=== PATIENT | male | born 1960 | race Caucasian/White ===

== ENCOUNTER → 2020-03-10 15:08 | Outpatient (BNVA) | payer OTHER, SELFPAY | PROVIDERS: PCP Internal Medicine; Visit Provider Internal Medicine | DX: Z76.89 Persons encountering health services in other specified circumstances (principal) ==

== ENCOUNTER 2020-03-10 17:15 | Emergency (ER) | payer OTHER, SELFPAY ==
[2020-03-10 17:28] VITALS: BP 124/73; PULSE 76; RESP 20; TEMP 37.5; O2SAT 97; BMI 22.3
[2020-03-10 18:00] VITALS: BP 138/55; PULSE 68; RESP 16; TEMP 37.1; O2SAT 95
--- NOTE | 2020-03-10 18:11 | XR_ITS ---
EXAMINATION: XR CHEST CLINICAL INFORMATION: Cough, shortness of breath. COMPARISON: CT chest 12/27/2018. Chest x-ray 12/24/2018 TECHNIQUE: Frontal portable view of the chest was obtained. 6:08 PM FINDINGS: Lungs are clear. No pulmonary vascular congestion. There is no pleural effusion. The heart size is normal. The cardiac and mediastinal contours are normal. There are multilevel degenerative changes of dorsal spine. XR/XR chest 1V IMPRESSION: Unremarkable examination.
--- NOTE | 2020-03-10 18:13 | ED.URI ---
HPI - URI/Sore Throat General Chief Complaint: Upper Respiratory Symptoms Stated Complaint: SOB/Covid Symptoms Time Seen by Provider: 03/10/20 18:08 Source: patient Mode of arrival: ambulatory Limitations: no limitations History of Present Illness HPI Narrative: 59-year-old male with past medical history of ankylosing spondylosis on immunosuppressant therapy, chronic bronchitis, GERD, hyperlipidemia, history of pneumonia, pulmonary nodules presents with 1 week of upper respiratory symptoms consistent with COVID-19. He has been tested on Sunday however his test results have not come back yet. He does have significant concerns because he has had suspected COVID positive contacts and is on immunosuppressive therapy. Patient reports intermittent fevers and chills, cough, wheezing, and malaise. Denies chest pain or pressure, palpitations, abdominal pain, abdominal distention, dysuria, hematuria, and edema. MD elicited complaint: fever, cough, rhinorrhea and nasal congestion Pertinent past history: pneumonia and immunosuppression Onset (ago): week(s) (1) Consistency: constant Severity: moderate Description of mucous: clear and watery Able to tolerate fluids by mouth: Yes Exacerbating factors: exertion, speaking and deep breaths Relieving factors: nothing Context: sick contacts Associated symptoms: fever, chills, myalgias, nasal congestion, cough and shortness of breath Treatments prior to arrival: acetaminophen and ibuprofen Related Data Home Medications Medication Instructions Recorded Confirmed albuterol sulfate 90 mcg/actuation 2 puff INHALATION Q6H PRN 03/10/20 aerosol inhaler aspirin 81 mg tablet,delayed 81 mg PO DAILY 03/10/20 release carbamazepine 3 tab PO BID 03/10/20 03/10/20 carbamazepine 200 mg tablet 200 mg PO BID 03/10/20 cetirizine 1 tab PO DAILY 03/10/20 03/10/20 cetirizine 10 mg tablet 10 mg PO DAILY PRN 03/10/20 fluticasone propionate 2 spray INTRANASAL DAILY PRN 03/10/20 03/10/20 fluticasone propionate 50 1 spray INTRANASAL DAILY 03/10/20 mcg/actuation nasal spray,suspension omeprazole 1 cap PO DAILY 03/10/20 03/10/20 omeprazole 20 mg capsule,delayed 20 mg PO DAILY 03/10/20 release simvastatin 1 tab PO BEDTIME 03/10/20 03/10/20 simvastatin 20 mg tablet 20 mg PO BEDTIME 03/10/20 Previous Rx's Medication Instructions Recorded azithromycin [Zithromax TRI-LENNOX] See Rx Instructions .ROUTE 03/10/20 .COMPLEX #6 tab cefuroxime axetil 500 mg PO Q12H 7 Days #14 tab 03/10/20 Allergies Allergy/AdvReac Type Severity Reaction Status Date / Time acetaminophen [From PERCOCET] Allergy Unknown VOMITING Verified 03/10/20 15:13 codeine [CODEINE] Allergy Unknown VOMITING Verified 03/10/20 15:13 oxycodone [From PERCOCET] Allergy Unknown VOMITING Verified 03/10/20 15:13 Review of Systems Review of Systems: Constitutional: positive Fever, positive Chills, positive fatigue, positive Malaise ENT/Mouth: positive sore throat, positive runny nose Eyes: No Discharge Cardiovascular: No Chest Pain, No SOB Respiratory: Positive Cough, No Sputum, positive Wheezing, No Smoke Exposure, No Dyspnea Gastrointestinal: No Nausea, No Vomiting, No Diarrhea Genitourinary: no irregular bleeding, No Dysuria, No Urinary Frequency, No Hematuria, No Urinary Incontinence, No Urgency, No Flank Pain, Musculoskeletal: positive Myalgia Skin: No rash Neuro: No Headache Yes all other systems are reviewed and are negative PMFSH Past Medical History Attestation statement: The following information was validated with the patient. Source: old records reviewed Medical History Bronchitis GERD (gastroesophageal reflux disease) Hyperlipidemia Pneumonia Pulmonary nodules Social History Social History Smoking Status: Never smoker Advance Directives: No Advance Directives Information Provided: No Physical Exam Vital Signs: Vital Signs: Last Vital Signs Temp 98.8 F 03/10/20 18:00 Pulse 68 03/10/20 18:00 Resp 16 03/10/20 18:00 BP 138/55 L 03/10/20 18:00 Pulse Ox 95 03/10/20 18:00 Body Mass Index 22.3 Appearance: Alert. Oriented X3. Mild distress. Eyes: Pupils equal, round and reactive to light. ENT: Pharynx normal. Neck: Normal inspection. Neck supple. CVS: Normal heart rate and rhythm. Pulses normal. Respiratory: No respiratory distress. Lung sounds expiratory wheezing and coarse throughout, cough Abdomen: Soft and nontender. Skin: Skin warm and dry. Normal skin color. Normal skin turgor. Extremities: No lower extremity edema. Neuro: No motor deficit. No sensory deficit. Course Course Course Narrative: 59-year-old male with upper respiratory symptoms consistent with COVID-19 on immunosuppressive therapy. Plan of care is for x-ray, COVID testing. Chest x-ray is negative, COVID test is negative, however with patient's symptoms, lung sounds and immunosuppression will start azithromycin and cefuroxime. He does understand that he should maintain social isolation guidelines as if he were positive for COVID-19. Patient verbalized understanding of and agrees to plan of care discharge home. MDM - URI/Sore Throat Differential Diagnosis Differential diagnosis: Likely upper respiratory infection, sinusitis, viral infection, bronchitis and influenza Medical Records Attestation: I reviewed the patient's medical records. Lab Data Attestation: I reviewed the patient's lab results. Labs: Lab Results 03/10/20 Range/Units 18:34 COVID-19 (CB) Negative (Negative) COVID-19 Clin Com See Note Imaging Data Chest x-ray: Attestation: I personally reviewed and interpreted this imaging study as follows: Radiologist's impression: EXAMINATION: XR CHEST CLINICAL INFORMATION: Cough, shortness of breath. COMPARISON: CT chest 12/27/2018. Chest x-ray 12/24/2018 TECHNIQUE: Frontal portable view of the chest was obtained. 6:08 PM FINDINGS: Lungs are clear. No pulmonary vascular congestion. There is no pleural effusion. The heart size is normal. The cardiac and mediastinal contours are normal. There are multilevel degenerative changes of dorsal spine. XR/XR chest 1V IMPRESSION: Unremarkable examination. Discharge Plan Discharge Clinical Impression: Upper respiratory infection, COVID-19 Patient Disposition: Home, Self-Care Instructions: Upper Respiratory Infection (ED), COVID-19 (Coronavirus Disease 2019) (ED) Additional Instructions: You were evaluated for symptoms consistent with COVID-19. Your COVID-19 test was negative however your presentation is consistent with a positive COVID-19. We have prescribed 2 antibiotics azithromycin and cefuroxime because you are on immunosuppressant medications. These medications are prescribed to prevent a viral infection from progressing to a bacterial infection. Please follow-up the primary care provider in the next 2-3 days. Please socially isolate for State and Federal guidelines. Is your responsibility to maintain isolation guidelines. Thank you for choosing this emergency department for evaluation. Please follow-up with primary care physician as needed. Return to the emergency department for any new, concerning, or worsening symptoms. Prescriptions: New azithromycin [Zithromax TRI-LENNOX] 500 mg tablet See Rx Instructions .ROUTE .COMPLEX Qty: 6 RF: 0 cefuroxime axetil 500 mg tablet 500 mg PO Q12H 7 Days Qty: 14 RF: 0 No Action cetirizine 10 mg tablet 1 tab PO DAILY RF: 0 carbamazepine 200 mg tablet 3 tab PO BID RF: 0 simvastatin 20 mg tablet 1 tab PO BEDTIME RF: 0 omeprazole 20 mg capsule,delayed release(DR/EC) 1 cap PO DAILY RF: 0 fluticasone propionate 50 mcg/actuation spray,suspension 2 spray intranasal DAILY PRN (Reason: Allergic Symptoms) RF: 0 cetirizine 10 mg tablet 10 mg PO DAILY PRN (Reason: Runny Nose) RF: 0 carbamazepine 200 mg tablet 200 mg PO BID RF: 0 omeprazole 20 mg capsule,delayed release(DR/EC) 20 mg PO DAILY RF: 0 fluticasone propionate [Flonase Allergy Relief] 50 mcg/actuation spray,suspension 1 spray intranasal DAILY RF: 0 simvastatin 20 mg tablet 20 mg PO BEDTIME RF: 0 aspirin 81 mg tablet,delayed release (DR/EC) 81 mg PO DAILY RF: 0 albuterol sulfate 90 mcg/actuation HFA aerosol inhaler 2 puff inhalation Q6H PRN (Reason: Shortness Of Breath) RF: 0 Referrals: Kevin Rogers MD [Physician] - 2 days (Follow-up for URI consistent with COVID-19) Interventions: ED Discharge Assessment Last Done: 03/10/20 19:37 Discharge Date/Time: 03/10/20 19:38
[2020-03-10 19:02] LABS: COVID-19 Test Negative (Negative)
[2020-03-10] MEDS: Azithromycin 500 MG TABLET PO (19:19)
== END 2020-03-10 19:38 | disposition home or self-care (01) ==
PROVIDERS: Nurse Practitioner Family; Emergency Provider Emergency Medicine; PCP Internal Medicine
DX: U07.1 COVID-19 (principal); J06.9 Acute upper respiratory infection, unspecified; R05 Cough; Z79.899 Other long term (current) drug therapy
CPT/HCPCS: 36415; 71045; 87635; 99283

== ENCOUNTER → 2020-03-18 11:05 | Outpatient (BNVA) | payer OTHER, SELFPAY | PROVIDERS: PCP Internal Medicine; Visit Provider Internal Medicine Pulmonary Disease ==

== ENCOUNTER → 2020-03-26 12:44 | Outpatient (BNVA) | payer OTHER, SELFPAY | PROVIDERS: PCP Internal Medicine; Visit Provider Internal Medicine Pulmonary Disease ==

== ENCOUNTER → 2020-04-27 10:45 | Outpatient (BNVA) | payer OTHER, SELFPAY | PROVIDERS: PCP Internal Medicine; Visit Provider Internal Medicine Pulmonary Disease ==

== ENCOUNTER → 2020-07-22 09:19 | Outpatient (BNVA) | payer OTHER, SELFPAY | PROVIDERS: PCP Internal Medicine; Visit Provider Internal Medicine Pulmonary Disease ==

== ENCOUNTER 2020-07-29 05:12 | Inpatient (IN) | payer OTHER, SELFPAY ==
[2020-07-29] VITALS (15 sets, daily range): BP systolic 124–157; BP diastolic 58–69; PULSE 62–97; RESP 16–24; TEMP 36.5–36.8; O2SAT 94–100; BMI 22.4
--- NOTE | ~2020-07-29 | XR_ITS ---
EXAMINATION: XR CHEST CLINICAL INFORMATION: Shortness of breath COMPARISON: 08/31/2020 TECHNIQUE: Frontal view of the chest was obtained. FINDINGS: Normal symmetric lung volumes. No parenchymal consolidation. No pleural effusion. No pneumothorax. Cardiomediastinal silhouette and pulmonary vascularity are within normal limits. No acute osseous abnormalities. XR/XR chest 1V IMPRESSION: Unremarkable examination.
--- NOTE | ~2020-07-29 | CT_ITS ---
EXAMINATION: CT CHEST WITH CONTRAST CLINICAL INFORMATION: Shortness of breath. Organizing pneumonia. COMPARISON: CT chest 12/27/2018 TECHNIQUE: Multidetector volumetric CT imaging of the chest was obtained after the administration of 65 mL of Omnipaque 350 intravenous contrast without immediate adverse reactions. Axial MIP volume rendering provided. Sagittal and coronal reformatted images were obtained. This CT examination was performed using dose optimization techniques as appropriate, variously including the following: *Automated exposure control *Adjustment of mA and/or kV according to patient size (this includes techniques or standardized protocols for targeted exams where dose is matched to indication/reason for exam; i.e. extremities or head) *Use of iterative reconstruction technique DLP: 285 mGy-cm FINDINGS: LUNGS: There is no acute airways disease. No bronchiectasis or interstitial lung disease. The central bronchial airways are open. Lung nodules: Right lun. Right upper lobe 1 mm nodule axial image 210/645 series 5. Left lun. There is a 1 mm stable nodule left upper lobe axial image 135/645 series 5. 2. 5 mm calcified granuloma left lower lobe axial image 277/645 series 5.. 3. 2 mm calcified granuloma medial left lower lobe axial image 442/645 series 5. There are no new or suspicious lung nodules.. MEDIASTINUM: No mediastinal mass or significant lymphadenopathy. 9 mm lymph node in the pretracheal retrovascular space at the level the melody is stable. The heart size is normal. No pericardial effusion. Small volume of coronary artery calcifications. There is no aneurysm of aorta. Thyroid is unremarkable. PLEURA: No pleural thickening or pleural effusion. AXILLA: No lymphadenopathy. UPPER ABDOMEN: 1 mm nonobstructive stone upper pole of right kidney. There is an extrarenal pelvis of left kidney. No focal lesion in the visualized portions of liver, spleen, pancreas or the adrenal glands. OSSEOUS STRUCTURES: No suspicious osseous abnormality. There is degenerative spondylosis spine. CT/CT chest w con IMPRESSION: 1. No acute airways disease. 2. Stablescattered micronodules which are both calcified and noncalcified in lung since prior CAT scan 2018. Largest noncalcified nodules 1 mm. No further follow-up imaging recommended for the lung nodules.
--- NOTE | 2020-07-29 05:30 | ED_ITS ---
HPI - SOB/Dyspnea General Chief Complaint: Upper Respiratory Symptoms Stated Complaint: Sob Time Seen by Provider: 07/29/20 05:29 Source: patient Mode of arrival: ambulatory History of Present Illness HPI Narrative: This is a 59-year-old male with known ankylosing spondylitis and denies any history of COPD or asthma who has recently been on a steroid taper from 40 mg down to 30, this transition was made from Sunday into Sunday and since Sunday patient reports decreased effectiveness of albuterol and increasing shortness of breath throughout that time. He denies any associated chest pain/palpitations, fevers or chills. Related Data Home Medications Medication Instructions Recorded Confirmed albuterol sulfate 90 mcg/actuation 2 puff INHALATION Q6H PRN 03/10/20 aerosol inhaler aspirin 81 mg tablet,delayed 81 mg PO DAILY 03/10/20 release carbamazepine 200 mg tablet 600 mg PO BID 03/10/20 07/29/20 cetirizine 10 mg tablet 10 mg PO DAILY PRN 03/10/20 07/29/20 fluticasone propionate 50 2 spray INTRANASAL DAILY 03/10/20 07/29/20 mcg/actuation nasal spray,suspension omeprazole 20 mg capsule,delayed 20 mg PO DAILY@0630 03/10/20 07/29/20 release simvastatin 20 mg tablet 20 mg PO BEDTIME 03/10/20 albuterol sulfate 2.5 mg INHALATION Q4H PRN 07/29/20 07/29/20 prednisone 30 mg PO DAILY 07/29/20 07/29/20 Previous Rx's Medication Instructions Recorded cefuroxime axetil 500 mg PO Q12H 7 Days #14 tab 03/10/20 levofloxacin 750 mg tablet 750 mg PO DAILY 7 Days #7 tab 03/18/20 benzonatate 100 mg capsule 200 mg PO TID PRN 30 Days #90 cap 07/22/20 Allergies Allergy/AdvReac Type Severity Reaction Status Date / Time acetaminophen [From PERCOCET] Allergy Unknown VOMITING Verified 07/22/20 09:28 codeine [CODEINE] Allergy Unknown VOMITING Verified 07/22/20 09:28 oxycodone [From PERCOCET] Allergy Unknown VOMITING Verified 07/22/20 09:28 Review of Systems Review of Systems: Pertinent positives and negatives as stated in HPI 10 point review of systems is otherwise negative. PMFSH Past Medical History Source: nursing notes reviewed Medical History Bronchitis GERD (gastroesophageal reflux disease) Hyperlipidemia Pneumonia Pulmonary nodules Social History Social History Advance Directives: No Advance Directives Information Provided: No Physical Exam Vital Signs: Vital Signs: Last Vital Signs Temp 98.1 F 07/29/20 07:19 Pulse 76 07/29/20 07:19 Resp 20 07/29/20 07:19 BP 140/58 H 07/29/20 07:19 Pulse Ox 100 07/29/20 07:19 Oxygen Flow Rate 2 07/29/20 05:19 Body Mass Index 22.4 VITAL SIGNS: Reviewed. GENERAL: Well developed, well nourished, in no acute distress. HEAD: Normocephalic/atraumatic, EYES: PERRLA, EOMI l OROPHARYNX: no oral lesions noted, posterior pharynx clear NECK: Supple, no adenopathy LUNGS: Bilateral expiratory wheeze, scattered rhonchi, tachypnea, increased work of breathing. SpO2<98> with supplemental nasal cannula. CARDIOVASCULAR: Regular rate and rhythm without noted murmurs, no JVD or lower extremity edema. ABDOMEN: Soft, non-tender, non-distended with bowel sounds. NEUROLOGIC: Alert and oriented x 4. Strength and sensation to light touch were grossly intact x 4. Course Course Course Narrative: Acute on chronic exacerbation of underlying ankylosing spondylitis, COPD, but less likely pneumonia Review of all investigations negative for acute findings from chronic, leukocytosis likely secondary to patient's current use oral steroids and chest x-ray negative for acute findings. Patient on re-evaluation continue to improve with albuterol treatments as well as IV steroids. However, due to patient's clinical presentation with continued coughing and shortness of breath while on supplemental oxygen the decision was made to admit for continued steroid administration. This case was discussed with the inpatient hospitalist team who was agreeable for admission. MDM - SOB/Dyspnea Lab Data Result diagrams: 07/29/20 05:37 07/29/20 05:37 Labs: Lab Results 07/29/20 07/29/20 07/29/20 Range/Units 05:37 05:37 06:04 WBC 11.6 H (4.8-10.8) X10*3/uL RBC 3.97 L (4.60-5.80) X10*6/uL Hgb 13.2 L (14.0-18.0) g/dl Hct 37.9 L (42-52) % MCV 95.5 (80-98) fL MCH 33.2 H (27.0-33.0) pg MCHC 34.8 (31.0-36.0) g/dl RDW 12.5 (11.0-16.0) % Plt Count 169 (160-400) X10*3/uL MPV 8.0 L (9.4-12.4) fL Immature Gran % (Auto) 0.8 H (0.0-0.4) % Neut % (Auto) 68.9 (45-73) % Lymph % (Auto) 7.2 L (20-40) % [place] % (Auto) 6.7 (2-11) % Eos % (Auto) 15.7 H (0-4) % Baso % (Auto) 0.7 (0-2) % Lymph # (Auto) 0.8 L (1.2-4.9) X10*3/uL [place] # (Auto) 0.8 (0.1-1.2) X10*3/uL Eos # (Auto) 1.8 H (0.0-0.4) X10*3/uL Baso # (Auto) 0.1 (0.0-0.2) X10*3/uL Abs Immat Gran (auto) 0.09 H (0.00-0.03) X10*3/uL Absolute Neuts (auto) 8.0 (2.0-8.3) X10*3/uL Absolute Nucleated RBC 0.000 (0.0-0.012) X10*3/uL Nucleated RBC % (auto) 0.0 (0.0-0.2) /100WBC VBG pH (7.32-7.43) VBG pCO2 mmHg VBG pO2 mmHg VBG HCO3 (22-26) mmol/L VBG O2 Saturation % VBG Base Excess mmol/L Sodium 127 L (135-145) mmol/L Potassium 4.3 (3.3-5.1) mmol/L Chloride 93 L (96-108) mmol/L Carbon Dioxide 27 (22-29) mmol/L Anion Gap 11 L (12-20) BUN 10 (9-16) mg/dL Creatinine 0.63 (0.5-1.4) mg/dL Estim Creat Clear Calc 141.7 Estimated GFR > 60 Random Glucose 98 (60-115) mg/dL Calcium 8.9 (8.4-10.2) mg/dL Magnesium 1.7 (1.6-2.6) mg/dL Total Bilirubin 0.7 (0.0-1.0) mg/dL AST 28 (5-37) U/L ALT 35 (0-40) U/L Alkaline Phosphatase 77 (39-117) U/L Total Protein 6.9 (6.5-8.0) g/dL Albumin 4.2 (3.5-5.0) g/dL COVID-19 (CB) Negative (Negative) COVID-19 Clin Com See Note 07/29/20 Range/Units 07:23 WBC (4.8-10.8) X10*3/uL RBC (4.60-5.80) X10*6/uL Hgb (14.0-18.0) g/dl Hct (42-52) % MCV (80-98) fL MCH (27.0-33.0) pg MCHC (31.0-36.0) g/dl RDW (11.0-16.0) % Plt Count (160-400) X10*3/uL MPV (9.4-12.4) fL Immature Gran % (Auto) (0.0-0.4) % Neut % (Auto) (45-73) % Lymph % (Auto) (20-40) % [place] % (Auto) (2-11) % Eos % (Auto) (0-4) % Baso % (Auto) (0-2) % Lymph # (Auto) (1.2-4.9) X10*3/uL [place] # (Auto) (0.1-1.2) X10*3/uL Eos # (Auto) (0.0-0.4) X10*3/uL Baso # (Auto) (0.0-0.2) X10*3/uL Abs Immat Gran (auto) (0.00-0.03) X10*3/uL Absolute Neuts (auto) (2.0-8.3) X10*3/uL Absolute Nucleated RBC (0.0-0.012) X10*3/uL Nucleated RBC % (auto) (0.0-0.2) /100WBC VBG pH 7.39 (7.32-7.43) VBG pCO2 37 mmHg VBG pO2 91 mmHg VBG HCO3 22 (22-26) mmol/L VBG O2 Saturation 97.0 % VBG Base Excess -1.9 mmol/L Sodium (135-145) mmol/L Potassium (3.3-5.1) mmol/L Chloride (96-108) mmol/L Carbon Dioxide (22-29) mmol/L Anion Gap (12-20) BUN (9-16) mg/dL Creatinine (0.5-1.4) mg/dL Estim Creat Clear Calc Estimated GFR Random Glucose (60-115) mg/dL Calcium (8.4-10.2) mg/dL Magnesium (1.6-2.6) mg/dL Total Bilirubin (0.0-1.0) mg/dL AST (5-37) U/L ALT (0-40) U/L Alkaline Phosphatase (39-117) U/L Total Protein (6.5-8.0) g/dL Albumin (3.5-5.0) g/dL COVID-19 (CB) (Negative) COVID-19 Clin Com Discharge Plan Discharge Clinical Impression: COPD (chronic obstructive pulmonary disease), Dyspnea, Ankylosing spondylitis Patient Disposition: Admitted As Inpatient
[2020-07-29] MEDS: Albuterol Sulfate (0.083%) 2.5 MG/3 ML VIAL.NEB 5 MG INHALE ×2 (05:40→06:05)
[2020-07-29 05:42] LABS: Basophils Absolute Auto 0.1 X10*3/uL (0.0-0.2); Basophils Percent Auto 0.7 % (0-2); Eosinophils Absolute Auto 1.8 X10*3/uL (0.0-0.4); Eosinophils Percent Auto 15.7 % (0-4); Hematocrit 37.9 % (42-52); Hemoglobin 13.2 g/dl (14.0-18.0); Imm Gran Abs Auto 0.09 X10*3/uL (0.00-0.03); Imm Gran Pct Auto 0.8 % (0.0-0.4); Lymphocytes Absolute Auto 0.8 X10*3/uL (1.2-4.9); Lymphocytes Percent Auto 7.2 % (20-40); MANUAL DIFF FLAG NO; Mean Corpuscular HGB Conc 34.8 g/dl (31.0-36.0); Mean Corpuscular Hemoglobin 33.2 pg (27.0-33.0); Mean Corpuscular Volume 95.5 fL (80-98); Monocytes Absolute Auto 0.8 X10*3/uL (0.1-1.2); Monocytes Percent Auto 6.7 % (2-11); Neutrophils Percent Auto 68.9 % (45-73); Platelet Count 169 X10*3/uL (160-400); Red Blood Count 3.97 X10*6/uL (4.60-5.80); Red Cell Distribution Width 12.5 % (11.0-16.0); White Blood Count 11.6 X10*3/uL (4.8-10.8)
[2020-07-29] MEDS: methylPREDNISolone Sod Succ 125 MG/2 ML VIAL IVPUSH (05:47)
--- NOTE | 2020-07-29 06:00 | PC.NURSE ---
pt coughing has decreased when the resp treatment is being received. pt sat 100% resp at bedside.
[2020-07-29 06:12] LABS: Alanine Aminotransferase 35 U/L (0-40); Albumin Level 4.2 g/dL (3.5-5.0); Alkaline Phosphatase 77 U/L (39-117); Anion Gap 11 (12-20); Aspartate Amino Transferase 28 U/L (5-37); Bilirubin Total 0.7 mg/dL (0.0-1.0); Blood Urea Nitrogen 10 mg/dL (9-16); Calcium 8.9 mg/dL (8.4-10.2); Carbon Dioxide 27 mmol/L (22-29); Chloride 93 mmol/L (96-108); Creatinine Clr Calc Pharmacy 141.7; Estimated Glomerular Filt Rate > 60; Glucose Random 98 mg/dL (60-115); Magnesium 1.7 mg/dL (1.6-2.6); Potassium 4.3 mmol/L (3.3-5.1); Sodium 127 mmol/L (135-145); Total Protein 6.9 g/dL (6.5-8.0)
[2020-07-29 06:24] LABS: COVID-19 Test Negative (Negative); IDNOW Serial# 9DD0AD1C
[2020-07-29 07:31] LABS: VBG Base Excess -1.9 mmol/L; VBG HCO3 22 mmol/L (22-26); VBG pCO2 37 mmHg; VBG pH 7.39 (7.32-7.43); VBG pO2 91 mmHg
[2020-07-29 07:32] LABS: Venous Blood Gas Refer to POC result
[2020-07-29 08:00] LABS: Lactic Acid 2.5 mmol/L (0.5-2.0)
--- NOTE | 2020-07-29 08:00 | HE.PHANOTE ---
MED REC COMPLETE, NO ISSUES
[2020-07-29] MEDS: 0.9 % Sodium Chloride 2,381.37 ML 2381.37 ML IVCONT (08:05)
[2020-07-29] MEDS: methylPREDNISolone Sod Succ 40 MG/ML VIAL IVPUSH ×2 (09:05→21:03)
[2020-07-29] MEDS: Azithromycin 500 MG TABLET PO (09:05)
[2020-07-29 09:24] LABS: Reflex Lactate? Lactic Acid Added
[2020-07-29 10:22] LABS: ~Lactic Acid-LAB USE ONLY 3.2 mmol/L (0.5-2.0)
--- NOTE | 2020-07-29 10:45 | P.HPHOSP_ITS ---
History of Present Illness Date of Service: 07/29/20 Chief Complaint: Shortness of breath, cough A 59 years old male with PMH of COPD, ankylosing spondylitis, bronchitis among others who presented to the hospital with complaints of dyspnea and shortness of breath for the last 2 weeks. The patient reports recurrent episodes of shortness of breath over the last few months which she follows with pulmonology about them with plan for further evaluation as outpatient. He reports over the last 2 weeks he started to have episodes of shortness of breath associated with wheezing. He tried his home medications and nebulizer with no improvement. He he saw his breaker operator at [facility] last week but things did not improve since then on tapering dose of prednisone. In the emergency a chest x-ray was negative for any acute findings. The patient complained of shortness of breath while resting and with ambulation. Oxygen level maintained in 90s. His blood work was significant for hyponatremia as well. Admitted for further evaluation and treatment. Review of Systems Review of Systems: No fever, chills but has generalized weakness No chest pain, palpitation Complaining mainly of shortness of breath and episodes No abdominal pain, nausea or vomiting No urinary symptoms No any rash or wounds PMFSH Medical History Bronchitis GERD (gastroesophageal reflux disease) Hyperlipidemia Pneumonia Pulmonary nodules Social History Alcohol intake: never Use of substances other than those prescribed or required for medical reasons: No Advance Directives: No Advance Directives Information Provided: No Meds Allergies Allergy/AdvReac Type Severity Reaction Status Date / Time acetaminophen [From PERCOCET] Allergy Unknown VOMITING Verified 07/22/20 09:28 codeine [CODEINE] Allergy Unknown VOMITING Verified 07/22/20 09:28 oxycodone [From PERCOCET] Allergy Unknown VOMITING Verified 07/22/20 09:28 Active Medications: Current Medications Generic Name Dose Route Start Last Admin Trade Name Freq PRN Reason Stop Dose Admin Albuterol/Ipratropium 3 ml 07/29/20 12:00 Albuterol/Iprat 2.5/0.5mg 3 Ml Ampul.Neb INHALE RQ4H WHILE AWAKE KAVEH Azithromycin 500 mg 07/29/20 09:00 07/29/20 09:05 Azithromycin 500 Mg Tablet PO 500 mg Q24H KAVEH Administration Methylprednisolone Sodium Succinate 40 mg 07/29/20 09:00 07/29/20 09:05 Methylprednisolone Sod Succ 40 Mg/Ml Vial IVPUSH 40 mg BID KAVEH Administration Pharmacy Consult 1 each 07/29/20 07:36 Consult Rx Perform Med Rec MISCELLANE ONCE PRN Consult order Pharmacy Consult 1 each 07/29/20 08:24 Consult Rx Perform Med Rec MISCELLANE ONCE PRN Consult order Home Medications Medication Instructions Recorded Confirmed Last Taken Type albuterol sulfate 90 mcg/actuation 2 puff INHALATION Q6H PRN 03/10/20 07/29/20 Unknown History aerosol inhaler aspirin 81 mg tablet,delayed 81 mg PO DAILY 03/10/20 07/29/20 07/29/20 History release carbamazepine 200 mg tablet 600 mg PO BID 03/10/20 07/29/20 07/29/20 History cetirizine 10 mg tablet 10 mg PO DAILY PRN 03/10/20 07/29/20 Unknown History fluticasone propionate 50 2 spray INTRANASAL DAILY 03/10/20 07/29/20 Unknown History mcg/actuation nasal spray,suspension omeprazole 20 mg capsule,delayed 20 mg PO DAILY@0630 03/10/20 07/29/20 07/29/20 History release simvastatin 20 mg tablet 20 mg PO BEDTIME 03/10/20 07/29/20 07/28/20 History albuterol sulfate 2.5 mg INHALATION Q4H PRN 07/29/20 07/29/20 Unknown History prednisone 30 mg PO DAILY 07/29/20 07/29/20 07/29/20 History Physical Exam Vital Signs and Narrative: Vital Signs: Last Vital Signs Temp 97.9 F 07/29/20 10:17 Pulse 89 07/29/20 10:17 Resp 17 07/29/20 10:17 BP 134/66 07/29/20 10:17 Pulse Ox 100 07/29/20 10:17 Oxygen Flow Rate 2 07/29/20 08:50 Body Mass Index 22.4 Const: Other: Constitutional : Alert, oriented, in mild decreased respiratory distress Neck : Normal inspection, Supple Cardiovascular : RRR, S1 S2, no lower extremity edema Respiratory : Decreased bilateral air entry, no crackles, bilateral expiratory Gastrointestinal: soft, lax, Normal bowel sounds, Non tender Skin : Warm/Dry, No rash Neurological : Alert & oriented x3, No focal deficit Results Labs CBC and Chem 7: 07/29/20 05:37 07/29/20 05:37 Labs: Laboratory Results - last 24 hr 07/29/20 07/29/20 07/29/20 05:37 05:37 06:04 MCV 95.5 MCH 33.2 H MCHC 34.8 RDW 12.5 Plt Count 169 MPV 8.0 L Immature Gran % (Auto) 0.8 H Neut % (Auto) 68.9 Lymph % (Auto) 7.2 L [place] % (Auto) 6.7 Eos % (Auto) 15.7 H Baso % (Auto) 0.7 Lymph # (Auto) 0.8 L [place] # (Auto) 0.8 Eos # (Auto) 1.8 H Baso # (Auto) 0.1 Abs Immat Gran (auto) 0.09 H Absolute Neuts (auto) 8.0 Absolute Nucleated RBC 0.000 Nucleated RBC % (auto) 0.0 VBG pH VBG pCO2 VBG pO2 VBG HCO3 VBG O2 Saturation VBG Base Excess Anion Gap 11 L Estim Creat Clear Calc 141.7 Estimated GFR > 60 Random Glucose 98 Lactic Acid Lactic Acid Fup @ 2Hr Calcium 8.9 Magnesium 1.7 Total Bilirubin 0.7 AST 28 ALT 35 Alkaline Phosphatase 77 Total Protein 6.9 Albumin 4.2 COVID-19 (CB) Negative COVID-19 Clin Com See Note 07/29/20 07/29/20 07/29/20 07:17 07:23 09:50 MCV MCH MCHC RDW Plt Count MPV Immature Gran % (Auto) Neut % (Auto) Lymph % (Auto) [place] % (Auto) Eos % (Auto) Baso % (Auto) Lymph # (Auto) [place] # (Auto) Eos # (Auto) Baso # (Auto) Abs Immat Gran (auto) Absolute Neuts (auto) Absolute Nucleated RBC Nucleated RBC % (auto) VBG pH 7.39 VBG pCO2 37 VBG pO2 91 VBG HCO3 22 VBG O2 Saturation 97.0 VBG Base Excess -1.9 Anion Gap Estim Creat Clear Calc Estimated GFR Random Glucose Lactic Acid 2.5 H* Lactic Acid Fup @ 2Hr 3.2 H* Calcium Magnesium Total Bilirubin AST ALT Alkaline Phosphatase Total Protein Albumin COVID-19 (CB) COVID-19 Clin Com Imaging Radiologist's Impressions: Impressions Chest X-Ray 07/29/20 05:29 IMPRESSION: Unremarkable examination. Assessment and Plan (1) Dyspnea on exertion: Status: Acute (2) COPD exacerbation: Status: Acute (3) Acute hyponatremia: Status: Acute (4) Lactic acid acidosis: Status: Acute A 59 years old male with PMH of COPD, ankylosing spondylitis, bronchitis among others who presented to the hospital with complaints of dyspnea and shortness of breath for the last 2 weeks. Acute hyponatremia Could be secondary to medications, decreased p.o. intake Urinalysis and electrolytes To give IV fluid bolus and monitor response Follow BMP q.6 Target to get back to 135 today COPD exacerbation CXR negative for any acute finding Bronchodilator nebulizers Azithromycin for anti-inflammatory effect Oxygen supplement as needed, wean down as tolerated Consider CT chest and pulmonology evaluation if no improvement Lactic acidosis 2/2 Albuterol usage not sepsis. DVT PPX Xarelto Quality Stroke Does the patient have a stroke diagnosis?: No VTE Prior VTE?: No VTE Risk Level:: Medical - moderate - high VTE Device Contraindication: Treatment Not Indicated VTE Drug Contraindication: N/A - Med Ordered
[2020-07-29 11:53] LABS: Reflex Lactate? 2 Y
[2020-07-29] MEDS: Albuterol/Iprat 2.5/0.5MG 3 ML AMPUL.NEB INHALE ×3 (12:05→19:57)
--- NOTE | 2020-07-29 12:49 | PC.NURSE ---
REPORT GIVEN TO ANDREZ ON MED SURG
[2020-07-29 12:52] LABS: ~Lactic Acid-LAB USE ONLY 3.1 mmol/L (0.5-2.0)
[2020-07-29 12:57] LABS: Cancel Lactic Acid Canceled
[2020-07-29] MEDS: Aspirin Enteric Coated 81 MG TABLET.DR PO (13:49)
[2020-07-29] MEDS: Rivaroxaban 10 MG TABLET PO (13:49)
[2020-07-29] MEDS: guaiFENesin LA 600 MG TAB.ER.12H PO ×2 (13:49→21:03)
--- NOTE | 2020-07-29 14:01 | MHC.CM.NN ---
nnurse care tech note electronic medical record reviewed along wit case discussed with bedside nurse. 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
[2020-07-29] MEDS: ondansetron HCL 4 MG/2 ML VIAL IVPUSH (16:56)
[2020-07-29] MEDS: 0.9 % Sodium Chloride Flush 3 ML SYRINGE IVFLUSH ×2 (16:56→21:03)
[2020-07-29] MEDS: Benzonatate 100 MG CAPSULE 200 MG PO ×2 (16:56→23:09)
[2020-07-29] MEDS: Throat Lozenge, Medicated LOZENGE 1 LOZENGE MUCOUS MEM ×2 (21:03→23:09)
[2020-07-29] MEDS: carBAMazepine 200 MG TABLET 600 MG PO (21:03)
[2020-07-29] MEDS: Acetaminophen 325 MG TABLET 650 MG PO (23:12)
[2020-07-30] VITALS (12 sets, daily range): BP systolic 135–168; BP diastolic 63–79; PULSE 61–83; RESP 17–21; TEMP 36.2–36.8; O2SAT 91–98
--- NOTE | 2020-07-30 | ECG_ITS ---
Test Reason : QTC CHECK Blood Pressure : / mmHG Vent. Rate : 069 BPM Atrial Rate : 069 BPM P-R Int : 174 ms QRS Dur : 096 ms QT Int : 386 ms P-R-T Axes : 066 074 060 degrees QTc Int : 413 ms Normal sinus rhythm Normal ECG When compared with ECG of 24-DEC-2018 18:15, No significant change was found Referred By: Pankaj Henriquez Electronically Signed By:RENÉ PARTIDA
[2020-07-30] MEDS: Albuterol Sulfate (0.083%) 2.5 MG/3 ML VIAL.NEB INHALE (00:29)
[2020-07-30] MEDS: Throat Lozenge, Medicated LOZENGE 1 LOZENGE MUCOUS MEM (06:05)
[2020-07-30] MEDS: Omeprazole 20 MG CAPSULE.DR PO (06:05)
[2020-07-30 06:58] LABS: Hematocrit 38.4 % (42-52); Hemoglobin 13.2 g/dl (14.0-18.0); Mean Corpuscular HGB Conc 34.4 g/dl (31.0-36.0); Mean Corpuscular Hemoglobin 32.9 pg (27.0-33.0); Mean Corpuscular Volume 95.8 fL (80-98); Mean Platelet Volume 8.4 fL (9.4-12.4); Platelet Count 188 X10*3/uL (160-400); Red Blood Count 4.01 X10*6/uL (4.60-5.80); Red Cell Distribution Width 12.4 % (11.0-16.0); White Blood Count 10.6 X10*3/uL (4.8-10.8)
[2020-07-30 07:17] LABS: Anion Gap 15 (12-20); Blood Urea Nitrogen 12 mg/dL (9-16); Calcium 8.8 mg/dL (8.4-10.2); Carbon Dioxide 21 mmol/L (22-29); Chloride 95 mmol/L (96-108); Creatinine Clr Calc Pharmacy 141.7; Estimated Glomerular Filt Rate > 60; Glucose Random 114 mg/dL (60-115); Potassium 4.6 mmol/L (3.3-5.1); Sodium 126 mmol/L (135-145)
[2020-07-30] MEDS: Albuterol/Iprat 2.5/0.5MG 3 ML AMPUL.NEB INHALE ×4 (07:21→19:49)
[2020-07-30 08:13] LABS: Osmolality, Serum 267 mosm/kg (281-305)
[2020-07-30] MEDS: Azithromycin 500 MG TABLET PO (08:13)
[2020-07-30] MEDS: Rivaroxaban 10 MG TABLET PO (08:13)
[2020-07-30] MEDS: Benzonatate 100 MG CAPSULE 200 MG PO ×3 (08:13→20:18)
[2020-07-30] MEDS: carBAMazepine 200 MG TABLET 600 MG PO ×2 (08:14→20:19)
[2020-07-30] MEDS: guaiFENesin LA 600 MG TAB.ER.12H PO ×2 (08:14→20:18)
[2020-07-30] MEDS: Aspirin Enteric Coated 81 MG TABLET.DR PO (08:15)
[2020-07-30] MEDS: methylPREDNISolone Sod Succ 40 MG/ML VIAL IVPUSH ×2 (08:16→20:21)
[2020-07-30] MEDS: Fluticasone Propionate Nasal 16 GM SPRAY 2 SPRAY NOSTRIL-B (08:16)
[2020-07-30] MEDS: 0.9 % Sodium Chloride Flush 3 ML SYRINGE IVFLUSH ×3 (08:21→20:19)
--- NOTE | 2020-07-30 09:44 | P.PNNP_ITS ---
Subjective Subjective Date of Service: 07/30/20 Physical Exam Vital Signs: Vital Signs: Last Vital Signs Temp 97.6 F 07/30/20 07:58 Pulse 61 07/30/20 07:58 Resp 19 07/30/20 07:58 BP 135/63 07/30/20 07:58 Pulse Ox 95 07/30/20 07:58 Oxygen Flow Rate 2 07/29/20 08:50 Body Mass Index 22.4 Objective Data Labs CBC & Chem 7: 07/30/20 06:30 07/30/20 06:30 Labs: Laboratory Results - last 24 hr 07/29/20 07/29/20 07/30/20 09:50 12:24 06:30 WBC 10.6 RBC 4.01 L Hgb 13.2 L Hct 38.4 L MCV 95.8 MCH 32.9 MCHC 34.4 RDW 12.4 Plt Count 188 MPV 8.4 L Absolute Nucleated RBC 0.000 Nucleated RBC % (auto) 0.0 Sodium Potassium Chloride Carbon Dioxide Anion Gap BUN Creatinine Estim Creat Clear Calc Estimated GFR Random Glucose Osmolality Lactic Acid Fup @ 2Hr 3.2 H* Lactic Acid Fup @ 4Hr 3.1 H* Calcium 07/30/20 07/30/20 06:30 06:30 WBC RBC Hgb Hct MCV MCH MCHC RDW Plt Count MPV Absolute Nucleated RBC Nucleated RBC % (auto) Sodium 126 L Potassium 4.6 Chloride 95 L Carbon Dioxide 21 L Anion Gap 15 BUN 12 Creatinine 0.63 Estim Creat Clear Calc 141.7 Estimated GFR > 60 Random Glucose 114 Osmolality 267 L Lactic Acid Fup @ 2Hr Lactic Acid Fup @ 4Hr Calcium 8.8 Microbiology Microbiology Results: Microbiology 07/29/20 07:17 Blood - Venous Blood Culture - Preliminary No growth after 24 hours. 07/29/20 07:17 Blood - Venous Blood Culture - Preliminary No growth after 24 hours. Assessment & Plan Assessment and plan (1) Acute hyponatremia: Status: Acute Assessment and Plan: Pt seen Hypotonic Hyponatremia REstrict free water to 1.2 L per 24 hrs ADD UREA 15 gm PO BID for now Consult dictate Time Spent With Patient Time: Total time spent is greater than 50% in coordination of care (as documente d) at patient's floor/unit and/or counseling patient: Procedures Date of Service Date of Service: 07/30/20 Progress Note: Quality Stroke Does the patient have a stroke diagnosis?: No
--- NOTE | 2020-07-30 12:00 | CA_ITS ---
Transthoracic Echocardiogram Patient (Last, First, Middle): Moe Hammer L Gender: Male Date of : 1960 Age: 59 Procedure Date: 07/30/2020 Procedure Type: Transthoracic Echocardiogram Location: S3W Height: 187.96 cm Weight: 79.38 kg BSA: 2.05 m2 Heart Rate: bpm BP: 135 / 63 mmHg Reimbursement Counselor: GINA Referring MD: Pankaj Henriquez MD Symptoms: Dyspnea, r o Pulm. HTN Study Quality: Fair ECG Rhythm: Sinus Conclusions: - The left ventricular systolic function is normal. The visually estimated ejection fraction is between 65-70%. - No obvious valvular pathology seen on this study. - Mild pulmonary hypertension is present. - There is mild dilatation of the ascending aorta measuring 4.10 cm. Findings Left Ventricle Normal left ventricular cavity size. There is normal left ventricular wall thickness. The left ventricular systolic function is normal. The visually estimated ejection fraction is between 65-70%. The calculated ejection fraction is 67% by biplane method. There is no evidence of regional wall motion abnormalities. Diastolic function is normal for age. Right Ventricle Normal right ventricular cavity size and systolic function. Atria The left atrium is mildly dilated. The right atrium is normal in size. Aortic Valve The aortic valve was not well visualized. There is no aortic valve stenosis. There is no aortic valve regurgitation. Mitral Valve The mitral valve appears normal. There is trace mitral valve regurgitation. There is no mitral valve stenosis. Pulmonic Valve The pulmonic valve was not well visualized. Tricuspid Valve Normal tricuspid valve structure. There is trace tricuspid valve regurgitation. The right ventricular systolic pressure is 47 mmHg. Mild pulmonary hypertension is present. Great Vessels There is mild dilatation of the ascending aorta measuring 4.10 cm. Venous The inferior vena cava is dilated and collapses less than 50% with inspiration. Pericardium/Pleural There is no evidence of pericardial effusion. Prior Study Comparison No significant change compared to prior study dated: 09/26/2018. Recommendations, Care & Conclusions No obvious valvular pathology seen on this study. Measurements 2D Linear Measurements IVSd: 0.94 0.6-0.9/0.6-1.0 cm LVIDd: 4.53 3.9-5.3/4.2-5.9 cm LVIDd Index: 2.21 2.4-3.2/2.2-3.1 cm/m2 LVIDs: 3.16 2.0-3.6 cm LVPWd: 0.87 0.7-1.1 cm Ao Root: 3.80 2.1-3.5 cm LA Diam: 3.30 2.7-3.8/3.0-4.0 cm LAIDs Index: 1.61 1.5-2.3 cm/m2 LV Mass: 168.48 67-162/88-224 g LV Mass Index: 82.19 43-95/49-115 g/m2 LVOT Diam: 2.10 3.0+(-)1.3 cm 2D Systolic Function EF 4C: 71.30 >55% EF 2C: 62.50 >55% EF BiP: 66.80 >55% Mitral Valve MV Pk E: 0.94 MV PK A: 0.50 MV Decel Time: 185.00 E/A: 1.90 E'Lateral: 16.20 E'Medial: 10.80 E/E' Med: 8.70 E/E' Lat: 5.80 PHT: 54.00 MVA PHT: 4.07 Decel Jones: 5.10 Aortic Valve AoV Pk Wilbert: 1.92 AoV Mn Wilbert: 1.28 AoV VTI: 0.40 AoV Pk Grad: 15.00 Aov Mn Grad: 7.00 DANA Cont.VTI: 3.00 LVOT LVOT Pk Wilbert: 1.43 LVOT Mn Wilbert: 0.93 LVOT VTI: 0.35 LVOT Pk Grad: 8.00 LVOT Mn Grad: 4.00 LVOT Diam: 2.10 LVOT Area: 3.46 Diastolic Function MV Pk E: 0.94 MV Pk A: 0.50 E/A: 1.90 E'Medial: 10.80 E/E' Med: 8.70 E' Laterial: 16.20 E/E' Lat: 5.80 Tricuspid Valve TR Pk Wilbert: 2.81 TR Pk Grad: 32.00 RA Press: 15.00 RVSP: 47.00 Great Vessels Aorta Ao Root-2D: 3.80 2.0-3.7 cm Ao Asc: 4.10 2.1-3.4 cm Updated in Other Vendor System with Status of Final Alberto Nunez MD electronically signed on 07/30/2020 2:42:35 PM with status of Final
--- NOTE | 2020-07-30 12:50 | CONS_ITS ---
DATE OF SERVICE: 07/30/2020 REASON FOR CONSULTATION: I was called to see the patient to assist in the management of hyponatremia. HISTORY OF PRESENT ILLNESS: To summarize, Moe is a 59-year-old man with history of chronic obstructive pulmonary disease and chronic hyponatremia. He has been on Tegretol for a quite some time. With that, he has had a serum sodium in the high 120s. He comes in because of shortness of breath and currently being treated for exacerbation of chronic obstructive pulmonary disease. PAST MEDICAL HISTORY: Ongoing medical problems include history of COPD, pulmonary nodules, hyperlipidemia, GERD, bronchitis. ALLERGIES: HE IS ALLERGIC TO OXYCODONE, CODEINE, AND PERCOCET. MEDICATIONS: At the time of admission included albuterol, aspirin, carbamazepine 600 mg b.i.d., cetirizine, fluticasone, omeprazole, simvastatin, prednisone 30 mg. All the current medications were reviewed. REVIEW OF SYSTEMS: Positive for shortness of breath. No chest pain. No nausea or vomiting. No abdominal pain, diarrhea, or constipation. No polyuria or polydipsia. All other systems were reviewed. PHYSICAL EXAMINATION: GENERAL: Moe is a middle-aged man, who is short of breath at rest, not in any distress. NECK: Supple. LUNGS: Bilateral scattered rhonchi with wheeze. HEART: S1, S2 heard. No gallop. ABDOMEN: Soft, nontender. NEURO: Alert and awake. No asterixis. EXTREMITIES: No edema. VITAL SIGNS: Blood pressure today was 135/63, pulse 61, he is afebrile. LABORATORY DATA: Sodium 126, potassium 4.6, CO2 of 21, BUN 12, creatinine 0.63. Hemoglobin 13.2. Serum osmolality was 267. Urine sodium was 39. Urine osmolality 254. Chest x-ray showed normal lung volumes. No masses were reported. IMPRESSION: 59-year-old man with chronic hyponatremia. Moe has hypotonic hyponatremia and this is most likely due to the use of carbamazepine. He is currently asymptomatic from the hyponatremia. RECOMMENDATIONS: My recommendation will be to give keep him on oral free water restriction of 1.2 L per 24 hours and add urea powder 15 g b.i.d. for the next few days and try to maintain the serum sodium more than 130 millimoles per liter. There is no evidence of adrenal insufficiency and hypothyroidism needs to be ruled out. There is no indication for hypertonic saline at this time. Goal is to cut the serum sodium at a rate of 0.5 millimole per liter per hour. We will follow him along with the team. Jason Fernandez MD BPA/MODL / [id number] MTDD
--- NOTE | 2020-07-30 13:02 | P.PNIM_ITS ---
Subjective Subjective Date of Service: 07/30/20 Interval History: the patient was seen and evaluated this morning Standing up, feels dyspneic and shortness of breath with any minimal exertion and on resting Mildly distressed Denies any fever, chills or shortness of breath No reported other overnight events. Review of Systems No fever, chills but has generalized weakness No chest pain, palpitation Complaining mainly of shortness of breath and episodes of dyspnea No abdominal pain, nausea or vomiting No urinary symptoms No any rash or wounds Physical Exam Vital Signs: Vital Signs: Last Vital Signs Temp 98.2 F 07/30/20 11:40 Pulse 67 07/30/20 11:40 Resp 17 07/30/20 11:40 BP 148/63 H 07/30/20 11:40 Pulse Ox 93 07/30/20 12:00 Oxygen Flow Rate 2 07/29/20 08:50 Body Mass Index 22.4 Const: Other: Constitutional : Alert, oriented, in mild decreased respiratory distress Neck : Normal inspection, Supple Cardiovascular : RRR, S1 S2, no lower extremity edema Respiratory : Decreased bilateral air entry, no crackles, bilateral expiratory fine wheezes Gastrointestinal: soft, lax, Normal bowel sounds, Non tender Skin : Warm/Dry, No rash Neurological : Alert & oriented x3, No focal deficit Objective Data Current Medications Generic Name Dose Route Start Last Admin Trade Name Freq PRN Reason Stop Dose Admin Acetaminophen 650 mg 07/29/20 13:28 07/29/20 23:12 Acetaminophen 325 Mg Tablet PO 650 mg Q6H PRN Administration Pain, Mild (Pain Scale 1-3) Albuterol Sulfate 2.5 mg 07/29/20 12:43 07/30/20 00:29 Albuterol Sulfate (0.083%) 2.5 Mg/3 Ml Vial.Neb INHALE 2.5 mg Q3H PRN Administration Shortness of Breath/Wheezing Albuterol Sulfate 2.5 mg 07/29/20 13:28 Albuterol Sulfate (0.083%) 2.5 Mg/3 Ml Vial.Neb INHALE Q4H PRN Respiratory Distress Albuterol/Ipratropium 3 ml 07/29/20 12:00 07/30/20 11:31 Albuterol/Iprat 2.5/0.5mg 3 Ml Ampul.Neb INHALE 3 ml RQ4H WHILE AWAKE KAVEH Administration Aspirin 81 mg 07/29/20 14:00 07/30/20 08:15 Aspirin Enteric Coated 81 Mg Tablet. PO 81 mg DAILY KAVEH Administration Azithromycin 500 mg 07/29/20 09:00 07/30/20 08:13 Azithromycin 500 Mg Tablet PO 500 mg Q24H KAVEH Administration Benzocaine 1 lozenge 07/29/20 20:20 07/30/20 06:05 Throat Lozenge, Medicated Lozenge MUCOUS MEM 1 lozenge Q2H PRN Administration Sore Throat Benzonatate 200 mg 07/29/20 13:28 07/30/20 08:13 Benzonatate 100 Mg Capsule PO 200 mg TID PRN Administration cough Carbamazepine 600 mg 07/29/20 14:00 07/30/20 08:14 Carbamazepine 200 Mg Tablet PO 600 mg BID KAVEH Administration Fluticasone Propionate 2 spray 07/29/20 14:00 07/30/20 08:16 Fluticasone Propionate Nasal 16 Gm [place] NOSTRIL-B 2 spray DAILY KAVEH Administration Guaifenesin 600 mg 07/29/20 12:45 07/30/20 08:14 Guaifenesin [place] 600 Mg Tab.Er.12h PO 600 mg BID KAVEH Administration Loratadine 10 mg 07/29/20 13:28 Loratadine 10 Mg Tablet PO DAILY PRN Runny Nose Methylprednisolone Sodium Succinate 40 mg 07/29/20 09:00 07/30/20 08:16 Methylprednisolone Sod Succ 40 Mg/Ml Vial IVPUSH 40 mg BID KAVEH Administration Omeprazole 20 mg 07/30/20 06:30 07/30/20 06:05 Omeprazole 20 Mg Capsule. PO 20 mg DAILY@0630 KAVEH Administration Ondansetron HCl 4 mg 07/29/20 13:28 07/29/20 16:56 Ondansetron Hcl 4 Mg/2 Ml Vial IVPUSH 4 mg Q8H PRN Administration Nausea and Vomiting Pharmacy Consult 1 each 07/29/20 07:36 Consult Rx Perform Med Rec MISCELLANE ONCE PRN Consult order Pharmacy Consult 1 each 07/29/20 08:24 Consult Rx Perform Med Rec MISCELLANE ONCE PRN Consult order Rivaroxaban 10 mg 07/29/20 14:00 07/30/20 08:13 Rivaroxaban 10 Mg Tablet PO 10 mg DAILY KAVEH Administration Sodium Chloride 3 ml 07/29/20 16:00 07/30/20 08:21 0.9 % Sodium Chloride Flush 3 Ml Syringe IVFLUSH 3 ml QSHIFT KAVEH Administration Urea 15 gm 07/30/20 09:45 Urea 15 Gm Powder PO BID [facility] Labs CBC & Chem 7: 07/30/20 06:30 07/30/20 06:30 Labs: Laboratory Results - last 24 hr 07/30/20 07/30/20 07/30/20 06:30 06:30 06:30 WBC 10.6 RBC 4.01 L Hgb 13.2 L Hct 38.4 L MCV 95.8 MCH 32.9 MCHC 34.4 RDW 12.4 Plt Count 188 MPV 8.4 L Absolute Nucleated RBC 0.000 Nucleated RBC % (auto) 0.0 Sodium 126 L Potassium 4.6 Chloride 95 L Carbon Dioxide 21 L Anion Gap 15 BUN 12 Creatinine 0.63 Estim Creat Clear Calc 141.7 Estimated GFR > 60 Random Glucose 114 Osmolality 267 L Calcium 8.8 Microbiology Microbiology Results: Microbiology 07/29/20 07:17 Blood Culture - Preliminary Blood - Venous No growth after 24 hours. 07/29/20 07:17 Blood Culture - Preliminary Blood - Venous No growth after 24 hours. Quality Stroke Does the patient have a stroke diagnosis?: No VTE Prior VTE?: No VTE Risk Level:: Medical - moderate - high VTE Device Contraindication: Treatment Not Indicated VTE Drug Contraindication: N/A - Med Ordered Assessment and Plan (1) Dyspnea on exertion: Status: Acute (2) COPD exacerbation: Status: Acute (3) Acute hyponatremia: Status: Acute (4) Lactic acid acidosis: Status: Acute Assessment and Plan: A 59 years old male with PMH of COPD, ankylosing spondylitis, bronchitis among others who presented to the hospital with complaints of dyspnea and shortness of breath for the last 2 weeks. Acute hyponatremia Hypotonic Could be secondary to medications, decreased p.o. intake With his chronic lung disease we should consider that etiology Sodium 126 today Follow BMP Target to get back to 135 today Nephrology input appreciated, start urea and water restriction COPD exacerbation CXR negative for any acute finding Bronchodilator nebulizers Azithromycin for anti-inflammatory effect Oxygen supplement as needed, wean down as tolerated To check echo To do CT chest with contrast pulmonology evaluation pending Lactic acidosis 2/2 Albuterol usage not sepsis. DVT PPX Xarelto
[2020-07-30] MEDS: Urea 15 GM POWDER PO ×2 (13:36→20:19)
--- NOTE | 2020-07-30 14:12 | P.CONPL_ITS ---
History of Present Illness History of Present Illness Consult date: 07/30/20 Chief complaint: COPD exacerbation Acute hyponatremia Narrative: 59 years old male with PMH of COPD, ankylosing spondylitis, bronchitis among others who presented to the hospital with complaints of dyspnea and shortness of breath for the last 2 weeks. The patient reports recurrent episodes of shortness of breath over the last few months which she follows with pulmonology about them with plan for further evaluation as outpatient. He reports over the last 2 weeks he started to have episodes of shortness of breath associated with wheezing. He tried his home medications and nebulizer with no improvement. He decided to come into the ER where he was found to be hypoxic and significantly wheezy. She was admitted to the hospital. I did evaluate the patient appears to have significant coughing spells where he loses his breath moderate to severe. His cough appears to be barky in nature. Review of Systems Constitutional: Constitutional: Denies night sweats ENT: Denies change in voice, Denies lip swelling, Denies mouth pain, Reports nasal congestion, Reports nasal discharge and Denies tongue swelling Cardiovascular: Cardiovascular: Denies chest pain and Reports dyspnea Respiratory: Respiratory: Reports cough, Reports dyspnea and Reports wheezing Gastrointestinal: Gastrointestinal: Denies abdominal pain Musculoskeletal: Musculoskeletal: Denies no additional musculoskeletal complaints Neurologic: Denies Neuro-related abnormal movements Psychiatric: Psychiatric: Denies no additional psychiatric complaints Hematologic/Lymphatic: Hematologic/Lymphatic: Denies easy bleeding and Denies lymphadenopathy Allergic/Immunologic: Allergic/Immunologic: Denies lip swelling, Denies tongue swelling and Reports wheezing PMFSH Past Medical History Medical History Bronchitis GERD (gastroesophageal reflux disease) Hyperlipidemia Pneumonia Pulmonary nodules Social History Social History Household Members: None Housing: House Do you presently have visiting nurse or other home services: No Alcohol intake: never Patient Tobacco Use Status: Never used Tobacco Use of substances other than those prescribed or required for medical reasons: No Currently Displaying Signs/Symptoms of Drug Intoxication Withdrawal: No Have you been hit, kicked, punched, or otherwise hurt by someone within the past year? If so, by whom?: No Do you feel safe in your current relationship?: No Is there a partner from a previous relationship who is making you feel unsafe now?: No Are you made to feel afraid or neglected: No [facility] Practices: [facility] Advance Directives: No Advance Directives Information Provided: No Do you have thoughts of harming others: None Do you have a plan to hurt others: No Plan Recently lost weight without trying: No Nutrition Risks: No Nutritional Risk Poor oral hygiene: No service: No Current occupational status: employed Meds Allergies Allergy/AdvReac Type Severity Reaction Status Date / Time acetaminophen [From PERCOCET] Allergy Unknown VOMITING Verified 07/22/20 09:28 codeine [CODEINE] Allergy Unknown VOMITING Verified 07/22/20 09:28 oxycodone [From PERCOCET] Allergy Unknown VOMITING Verified 07/22/20 09:28 Active Medications: Current Medications Generic Name Dose Route Start Last Admin Trade Name Freq PRN Reason Stop Dose Admin Acetaminophen 650 mg 07/29/20 13:28 07/29/20 23:12 Acetaminophen 325 Mg Tablet PO 650 mg Q6H PRN Administration Pain, Mild (Pain Scale 1-3) Albuterol Sulfate 2.5 mg 07/29/20 12:43 07/30/20 00:29 Albuterol Sulfate (0.083%) 2.5 Mg/3 Ml Vial.Neb INHALE 2.5 mg Q3H PRN Administration Shortness of Breath/Wheezing Albuterol Sulfate 2.5 mg 07/29/20 13:28 Albuterol Sulfate (0.083%) 2.5 Mg/3 Ml Vial.Neb INHALE Q4H PRN Respiratory Distress Albuterol/Ipratropium 3 ml 07/29/20 12:00 07/30/20 11:31 Albuterol/Iprat 2.5/0.5mg 3 Ml Ampul.Neb INHALE 3 ml RQ4H WHILE AWAKE KAVEH Administration Aspirin 81 mg 07/29/20 14:00 07/30/20 08:15 Aspirin Enteric Coated 81 Mg Tablet.Dr PO 81 mg DAILY KAVEH Administration Azithromycin 500 mg 07/29/20 09:00 07/30/20 08:13 Azithromycin 500 Mg Tablet PO 500 mg Q24H KAVEH Administration Benzocaine 1 lozenge 07/29/20 20:20 07/30/20 06:05 Throat Lozenge, Medicated Lozenge MUCOUS MEM 1 lozenge Q2H PRN Administration Sore Throat Benzonatate 200 mg 07/29/20 13:28 07/30/20 08:13 Benzonatate 100 Mg Capsule PO 200 mg TID PRN Administration cough Carbamazepine 600 mg 07/29/20 14:00 07/30/20 08:14 Carbamazepine 200 Mg Tablet PO 600 mg BID KAVEH Administration Fluticasone Propionate 2 spray 07/29/20 14:00 07/30/20 08:16 Fluticasone Propionate Nasal 16 [address] [place] NOSTRIL-B 2 spray DAILY KAVEH Administration Guaifenesin 600 mg 07/29/20 12:45 07/30/20 08:14 Guaifenesin [place] 600 Mg Tab.Er.12h PO 600 mg BID KAVEH Administration Loratadine 10 mg 07/29/20 13:28 Loratadine 10 Mg Tablet PO DAILY PRN Runny Nose Methylprednisolone Sodium Succinate 40 mg 07/29/20 09:00 07/30/20 08:16 Methylprednisolone Sod Succ 40 Mg/Ml Vial IVPUSH 40 mg BID KAVEH Administration Omeprazole 20 mg 07/30/20 06:30 07/30/20 06:05 Omeprazole 20 Mg Capsule.Dr PO 20 mg DAILY@0630 KAVEH Administration Ondansetron HCl 4 mg 07/29/20 13:28 07/29/20 16:56 Ondansetron Hcl 4 Mg/2 Ml Vial IVPUSH 4 mg Q8H PRN Administration Nausea and Vomiting Pharmacy Consult 1 each 07/29/20 07:36 Consult Rx Perform Med Rec MISCELLANE ONCE PRN Consult order Pharmacy Consult 1 each 07/29/20 08:24 Consult Rx Perform Med Rec MISCELLANE ONCE PRN Consult order Rivaroxaban 10 mg 07/29/20 14:00 07/30/20 08:13 Rivaroxaban 10 Mg Tablet PO 10 mg DAILY KAVEH Administration Sodium Chloride 3 ml 07/29/20 16:00 07/30/20 08:21 0.9 % Sodium Chloride Flush 3 Ml Syringe IVFLUSH 3 ml QSHIFT KAVEH Administration Urea 15 gm 07/30/20 09:45 07/30/20 13:36 Urea 15 Gm Powder PO 15 gm BID KAVEH Administration Home Medications Medication Instructions Recorded Confirmed Last Taken Type albuterol sulfate 90 mcg/actuation 2 puff INHALATION Q6H PRN 03/10/20 07/29/20 Unknown History aerosol inhaler aspirin 81 mg tablet,delayed 81 mg PO DAILY 03/10/20 07/29/20 07/29/20 History release carbamazepine 200 mg tablet 600 mg PO BID 03/10/20 07/29/20 07/29/20 History cetirizine 10 mg tablet 10 mg PO DAILY PRN 03/10/20 07/29/20 Unknown History fluticasone propionate 50 2 spray INTRANASAL DAILY 03/10/20 07/29/20 Unknown History mcg/actuation nasal spray,suspension omeprazole 20 mg capsule,delayed 20 mg PO DAILY@0630 03/10/20 07/29/20 07/29/20 History release simvastatin 20 mg tablet 20 mg PO BEDTIME 03/10/20 07/29/20 07/28/20 History albuterol sulfate 2.5 mg INHALATION Q4H PRN 07/29/20 07/29/20 Unknown History prednisone 30 mg PO DAILY 07/29/20 07/29/20 07/29/20 History Physical Exam Vital Signs: Vital Signs: Last Vital Signs Temp 98.2 F 07/30/20 11:40 Pulse 67 07/30/20 11:40 Resp 17 07/30/20 11:40 BP 148/63 H 07/30/20 11:40 Pulse Ox 93 07/30/20 12:00 Oxygen Flow Rate 2 07/29/20 08:50 Body Mass Index 22.4 Const: General: alert HENMT: General nose exam: Abnormal external nose present and Nasal discharge present Eyes: Pupils: Equal, round and reactive pupils present Neck: Neck: Yes normal visual inspection, Yes full ROM and Yes no lymphadenopathy Chest: Chest palpation & inspection: normal inspection of the chest Resp: Auscultation: diminished lung sounds Cardio: Rate: regular rate Rhythm: regular rhythm Heart sounds: S1 normal heart sound present and S2 normal heart sound present GI: Palpation (GI): Soft to palpation and nontender Auscultation: normal bowel sounds : General: Yes no CVA tenderness Back/Spine/Pelvis: Back: no CVA tenderness Skin: General skin exam: rashes and/or lesions noted Neuro: Cranial nerves: Yes Equal, round and reactive pupils present Results Laboratory Findings CBC and BMP: 07/30/20 06:30 07/30/20 06:30 Abnormal lab findings: Abnormal Labs 07/29/20 07/29/20 07/29/20 05:37 05:37 07:17 WBC 11.6 H RBC 3.97 L Hgb 13.2 L Hct 37.9 L MCH 33.2 H MPV 8.0 L Immature Gran % (Auto) 0.8 H Lymph % (Auto) 7.2 L Eos % (Auto) 15.7 H Lymph # (Auto) 0.8 L Eos # (Auto) 1.8 H Abs Immat Gran (auto) 0.09 H Sodium 127 L Chloride 93 L Carbon Dioxide Anion Gap 11 L Osmolality Lactic Acid 2.5 H* Lactic Acid Fup @ 2Hr Lactic Acid Fup @ 4Hr 07/29/20 07/29/20 07/30/20 09:50 12:24 06:30 WBC RBC 4.01 L Hgb 13.2 L Hct 38.4 L MCH MPV 8.4 L Immature Gran % (Auto) Lymph % (Auto) Eos % (Auto) Lymph # (Auto) Eos # (Auto) Abs Immat Gran (auto) Sodium Chloride Carbon Dioxide Anion Gap Osmolality Lactic Acid Lactic Acid Fup @ 2Hr 3.2 H* Lactic Acid Fup @ 4Hr 3.1 H* 07/30/20 07/30/20 06:30 06:30 WBC RBC Hgb Hct MCH MPV Immature Gran % (Auto) Lymph % (Auto) Eos % (Auto) Lymph # (Auto) Eos # (Auto) Abs Immat Gran (auto) Sodium 126 L Chloride 95 L Carbon Dioxide 21 L Anion Gap Osmolality 267 L Lactic Acid Lactic Acid Fup @ 2Hr Lactic Acid Fup @ 4Hr Microbiology: Microbiology 07/29/20 07:17 Blood - Venous Blood Culture - Preliminary No growth after 24 hours. 07/29/20 07:17 Blood - Venous Blood Culture - Preliminary No growth after 24 hours. Assessment and Plan (1) COPD exacerbation: Status: Acute (2) Tracheobronchitis: Status: Acute Continue IV SOlumedrol Continue Azithromycin respiratory panel Cough suppressant Continue nebulized therapy Bloodwork requested Will need close f/u with Pulmonary as outpt Procedures Date of Service Date of Service: 07/30/20
[2020-07-30] MEDS: guaiFENesin DM 600/30 1 TAB TAB.ER.12H 2 TAB PO ×2 (15:48→20:19)
[2020-07-30 15:55] LABS: Erythrocyte Sedimentation Rate 3 MM/HR (0-15)
[2020-07-30] MEDS: iohexoL 350 MG/ML 100 ML INFUS..BTL 70 ML IV (17:13)
[2020-07-31] VITALS (12 sets, daily range): BP systolic 136–174; BP diastolic 65–79; PULSE 62–76; RESP 16–22; TEMP 36.2–36.6; O2SAT 91–97
[2020-07-31] MEDS: Albuterol Sulfate (0.083%) 2.5 MG/3 ML VIAL.NEB INHALE (01:13)
[2020-07-31] MEDS: Omeprazole 20 MG CAPSULE.DR PO (05:51)
[2020-07-31 06:08] LABS: MANUAL DIFF FLAG NO
[2020-07-31 06:24] LABS: Basophils Percent Auto 0.5 % (0-2); Eosinophils Absolute Auto 0.2 X10*3/uL (0.0-0.4); Eosinophils Percent Auto 2.2 % (0-4); Hematocrit 38.4 % (42-52); Hemoglobin 13.2 g/dl (14.0-18.0); Imm Gran Abs Auto 0.08 X10*3/uL (0.00-0.03); Imm Gran Pct Auto 0.9 % (0.0-0.4); Lymphocytes Absolute Auto 1.3 X10*3/uL (1.2-4.9); Lymphocytes Percent Auto 14.6 % (20-40); Mean Corpuscular HGB Conc 34.4 g/dl (31.0-36.0); Mean Corpuscular Hemoglobin 33.1 pg (27.0-33.0); Mean Corpuscular Volume 96.2 fL (80-98); Mean Platelet Volume 8.5 fL (9.4-12.4); Monocytes Absolute Auto 0.8 X10*3/uL (0.1-1.2); Monocytes Percent Auto 9.1 % (2-11); Neutrophils Absolute Auto 6.4 X10*3/uL (2.0-8.3); Neutrophils Percent Auto 72.7 % (45-73); Platelet Count 201 X10*3/uL (160-400); Red Blood Count 3.99 X10*6/uL (4.60-5.80); Red Cell Distribution Width 12.6 % (11.0-16.0); White Blood Count 8.8 X10*3/uL (4.8-10.8)
[2020-07-31 06:40] LABS: Anion Gap 12 (12-20); Blood Urea Nitrogen 19 mg/dL (9-16); Carbon Dioxide 27 mmol/L (22-29); Chloride 94 mmol/L (96-108); Estimated Glomerular Filt Rate > 60; Glucose Random 106 mg/dL (60-115); Potassium 4.8 mmol/L (3.3-5.1); Sodium 128 mmol/L (135-145)
[2020-07-31] MEDS: Albuterol/Iprat 2.5/0.5MG 3 ML AMPUL.NEB INHALE ×4 (07:39→20:21)
[2020-07-31] MEDS: 0.9 % Sodium Chloride Flush 3 ML SYRINGE IVFLUSH ×2 (08:31→20:12)
[2020-07-31] MEDS: carBAMazepine 200 MG TABLET 600 MG PO ×2 (08:32→20:11)
[2020-07-31] MEDS: Aspirin Enteric Coated 81 MG TABLET.DR PO (08:32)
[2020-07-31] MEDS: Benzonatate 100 MG CAPSULE 200 MG PO ×3 (08:32→20:11)
[2020-07-31] MEDS: Urea 15 GM POWDER PO ×2 (08:32→20:12)
[2020-07-31] MEDS: Azithromycin 500 MG TABLET PO (08:32)
[2020-07-31] MEDS: methylPREDNISolone Sod Succ 40 MG/ML VIAL IVPUSH (08:32)
[2020-07-31] MEDS: guaiFENesin DM 600/30 1 TAB TAB.ER.12H 2 TAB PO ×2 (08:32→20:11)
[2020-07-31] MEDS: Rivaroxaban 10 MG TABLET PO (08:32)
[2020-07-31] MEDS: guaiFENesin LA 600 MG TAB.ER.12H PO (08:32)
[2020-07-31] MEDS: Fluticasone Propionate Nasal 16 GM SPRAY 2 SPRAY NOSTRIL-B (08:35)
[2020-07-31] MEDS: Morphine Sulfate 2 MG/ML CARTRIDGE IVPUSH (10:55)
[2020-07-31] MEDS: ondansetron HCL 4 MG/2 ML VIAL IVPUSH (11:04)
[2020-07-31 11:16] LABS: Immunoglobulin E 120 kU/L (<OR=114)
--- NOTE | 2020-07-31 11:20 | P.PNIM_ITS ---
Subjective Subjective Date of Service: 07/31/20 Interval History: The patient was seen and evaluated this morning Standing up, feels dyspneic and shortness of breath with reported bouts of c oughing Mildly distressed and and comfortable Denies any fever, chills or chest pain No reported other overnight events Review of Systems No fever, chills but has generalized weakness No chest pain, palpitation Complaining mainly of shortness of breath and bouts of coughing No abdominal pain, nausea or vomiting No urinary symptoms No any rash or wounds Physical Exam Vital Signs: Vital Signs: Last Vital Signs Temp 97.4 F 07/31/20 07:28 Pulse 75 07/31/20 07:41 Resp 22 H 07/31/20 10:55 BP 174/79 H 07/31/20 07:28 Pulse Ox 93 07/31/20 07:28 Oxygen Flow Rate 2 07/29/20 08:50 Body Mass Index 22.4 Const: Other: Constitutional : Alert, oriented, in mild respiratory distress Neck : Normal inspection, Supple Cardiovascular : RRR, S1 S2, no lower extremity edema Respiratory : Decreased bilateral air entry, no crackles, bilateral expiratory wheezes and rhonchi Gastrointestinal: soft, lax, Normal bowel sounds, Non tender Skin : Warm/Dry, No rash Neurological : Alert & oriented x3, No focal deficit Objective Data Current Medications Generic Name Dose Route Start Last Admin Trade Name Freq PRN Reason Stop Dose Admin Acetaminophen 650 mg 07/29/20 13:28 07/29/20 23:12 Acetaminophen 325 Mg Tablet PO 650 mg Q6H PRN Administration Pain, Mild (Pain Scale 1-3) Albuterol Sulfate 2.5 mg 07/29/20 12:43 07/31/20 01:13 Albuterol Sulfate (0.083%) 2.5 Mg/3 Ml Vial.Neb INHALE 2.5 mg Q3H PRN Administration Shortness of Breath/Wheezing Albuterol Sulfate 2.5 mg 07/29/20 13:28 Albuterol Sulfate (0.083%) 2.5 Mg/3 Ml Vial.Neb INHALE Q4H PRN Respiratory Distress Albuterol/Ipratropium 3 ml 07/29/20 12:00 07/31/20 07:39 Albuterol/Iprat 2.5/0.5mg 3 Ml Ampul.Neb INHALE 3 ml RQ4H WHILE AWAKE [facility] Administration Aspirin 81 mg 07/29/20 14:00 07/31/20 08:32 Aspirin Enteric Coated 81 Mg Tablet. PO 81 mg DAILY KAVEH Administration Azithromycin 500 mg 07/29/20 09:00 07/31/20 08:32 Azithromycin 500 Mg Tablet PO 500 mg Q24H KAVEH Administration Benzocaine 1 lozenge 07/29/20 20:20 07/30/20 06:05 Throat Lozenge, Medicated Lozenge MUCOUS MEM 1 lozenge Q2H PRN Administration Sore Throat Benzonatate 200 mg 07/30/20 15:30 07/31/20 08:32 Benzonatate 100 Mg Capsule PO 200 mg TID KAVEH Administration Carbamazepine 600 mg 07/29/20 14:00 07/31/20 08:32 Carbamazepine 200 Mg Tablet PO 600 mg BID KAVEH Administration Epinephrine 0.5 ml 07/31/20 10:07 Racepinephrine Hcl 0.5 Ml Vial.Neb INHALE Q4H PRN Cough Fluticasone Propionate 2 spray 07/29/20 14:00 07/31/20 08:35 Fluticasone Propionate Nasal 16 Gm [place] NOSTRIL-B 2 spray DAILY KAVEH Administration Guaifenesin/Dextromethorphan 2 tab 07/30/20 14:30 07/31/20 08:32 Guaifenesin Dm 600/30 1 Tab Tab.Er.12h PO 2 tab BID KAVEH Administration Loratadine 10 mg 07/29/20 13:28 Loratadine 10 Mg Tablet PO DAILY PRN Runny Nose Methylprednisolone Sodium Succinate 40 mg 07/29/20 09:00 07/31/20 08:32 Methylprednisolone Sod Succ 40 Mg/Ml Vial IVPUSH 40 mg BID KAVEH Administration Omeprazole 20 mg 07/30/20 06:30 07/31/20 05:51 Omeprazole 20 Mg Capsule. PO 20 mg DAILY@0630 KAVEH Administration Ondansetron HCl 4 mg 07/29/20 13:28 07/31/20 11:04 Ondansetron Hcl 4 Mg/2 Ml Vial IVPUSH 4 mg Q8H PRN Administration Nausea and Vomiting Pharmacy Consult 1 each 07/29/20 07:36 Consult Rx Perform Med Rec MISCELLANE ONCE PRN Consult order Pharmacy Consult 1 each 07/29/20 08:24 Consult Rx Perform Med Rec MISCELLANE ONCE PRN Consult order Rivaroxaban 10 mg 07/29/20 14:00 07/31/20 08:32 Rivaroxaban 10 Mg Tablet PO 10 mg DAILY KAVEH Administration Sodium Chloride 3 ml 07/29/20 16:00 07/31/20 08:31 0.9 % Sodium Chloride Flush 3 Ml Syringe IVFLUSH 3 ml QSHIFT KAVEH Administration Urea 15 gm 07/30/20 09:45 07/31/20 08:32 Urea 15 Gm Powder PO 15 gm BID KAVEH Administration Labs CBC & Chem 7: 07/31/20 05:47 07/31/20 05:47 Labs: Laboratory Results - last 24 hr 07/30/20 07/30/20 07/30/20 14:45 14:45 16:36 WBC RBC Hgb Hct MCV MCH MCHC RDW Plt Count MPV Immature Gran % (Auto) Neut % (Auto) Lymph % (Auto) Green % (Auto) Eos % (Auto) Baso % (Auto) Lymph # (Auto) Green # (Auto) Eos # (Auto) Baso # (Auto) Abs Immat Gran (auto) Absolute Neuts (auto) Absolute Nucleated RBC Nucleated RBC % (auto) ESR 3 Sodium Potassium Chloride Carbon Dioxide Anion Gap BUN Creatinine Estim Creat Clear Calc Estimated GFR Random Glucose Calcium IgE 120 H Respiratory Panel [place] Cancelled Adenovirus (Rapid PCR) Cancelled B.pert (TEM-PCR) Cancelled B.parapertussis DNA PCR Cancelled C. pneumoniae DNA (PCR) Cancelled Coronavirus OC43 (PCR) Cancelled Coronavirus HKU1 (PCR) Cancelled Coronavirus 229E (PCR) Cancelled Coronavirus NL63 (PCR) Cancelled Human Metapneumovir PCR Cancelled Influenza A (RT-PCR) Cancelled Influenza B (RT-PCR) Cancelled M. pneumoniae (PCR) Cancelled Parainfluenza 1 (PCR) Cancelled Parainfluenza 2 (PCR) Cancelled Parainfluenza 3 (PCR) Cancelled Parainfluenza 4 (PCR) Cancelled RSV (PCR) Cancelled Entero/Rhino (PCR) Cancelled SARS-CoV-2 RNA (RT-PCR) Cancelled 07/31/20 07/31/20 05:47 05:47 WBC 8.8 RBC 3.99 L Hgb 13.2 L Hct 38.4 L MCV 96.2 MCH 33.1 H MCHC 34.4 RDW 12.6 Plt Count 201 MPV 8.5 L Immature Gran % (Auto) 0.9 H Neut % (Auto) 72.7 Lymph % (Auto) 14.6 L Green % (Auto) 9.1 Eos % (Auto) 2.2 Baso % (Auto) 0.5 Lymph # (Auto) 1.3 Green # (Auto) 0.8 Eos # (Auto) 0.2 Baso # (Auto) 0.0 Abs Immat Gran (auto) 0.08 H Absolute Neuts (auto) 6.4 Absolute Nucleated RBC 0.000 Nucleated RBC % (auto) 0.0 ESR Sodium 128 L Potassium 4.8 Chloride 94 L Carbon Dioxide 27 Anion Gap 12 BUN 19 H D Creatinine 0.62 Estim Creat Clear Calc 144.0 Estimated GFR > 60 Random Glucose 106 Calcium 9.0 IgE Respiratory Panel [place] Adenovirus (Rapid PCR) B.pert (TEM-PCR) B.parapertussis DNA PCR C. pneumoniae DNA (PCR) Coronavirus OC43 (PCR) Coronavirus HKU1 (PCR) Coronavirus 229E (PCR) Coronavirus NL63 (PCR) Human Metapneumovir PCR Influenza A (RT-PCR) Influenza B (RT-PCR) M. pneumoniae (PCR) Parainfluenza 1 (PCR) Parainfluenza 2 (PCR) Parainfluenza 3 (PCR) Parainfluenza 4 (PCR) RSV (PCR) Entero/Rhino (PCR) SARS-CoV-2 RNA (RT-PCR) Microbiology Microbiology Results: Microbiology 07/29/20 07:17 Blood Culture - Preliminary Blood - Venous No growth after 48 hours. 07/29/20 07:17 Blood Culture - Preliminary Blood - Venous No growth after 48 hours. Quality Stroke Does the patient have a stroke diagnosis?: No VTE Prior VTE?: No VTE Risk Level:: Medical - moderate - high VTE Device Contraindication: Treatment Not Indicated VTE Drug Contraindication: N/A - Med Ordered Assessment and Plan (1) Dyspnea on exertion: Status: Acute (2) COPD exacerbation: Status: Acute (3) Acute hyponatremia: Status: Acute (4) Lactic acid acidosis: Status: Acute Assessment and Plan: A 59 years old male with PMH of COPD, ankylosing spondylitis, bronchitis among others who presented to the hospital with complaints of dyspnea and shortness of breath for the last 2 weeks. Acute hyponatremia Hypotonic Could be secondary to medications, decreased p.o. intake, SIADH With his chronic lung disease we should consider that etiology Sodium 128 today Follow BMP Nephrology input appreciated, start urea and water restriction Respiratory distress Dyspnea, coughing, COPD exacerbation CXR negative for any acute finding Bronchodilator nebulizers Azithromycin for anti-inflammatory effect Continue IV steroids Oxygen supplement as needed, wean down as tolerated Echo showed mild pulmonary hypertension CT chest with contrast showing nonspecific changes with no acute findings Pending respiratory viral panel pulmonology evaluation appreciated, try epinephrine nebulizers and morphine Lactic acidosis 2/2 Albuterol usage not sepsis. DVT PPX Xarelto
[2020-07-31] MEDS: Racepinephrine HCL 0.5 ML VIAL.NEB INHALE ×2 (12:11→18:08)
--- NOTE | 2020-07-31 12:16 | P.PNPL_ITS ---
Subjective Subjective Date of Service: 07/31/20 Interval history: Seen and examined. Significant coughing bouts with upper airway obstruction, likely laryngotracheobronchitis. Will switch antibiotics to cover pertussis. In the meantime awaiting respiratory viral panel. Given morphine, awaiting raceimic epi. Will also increase steroids. Awaiting other laboratory data. I did review CT chest with bronchitis and some likely mucus plugging Objective Data Labs CBC & Chem 7: 07/31/20 05:47 07/31/20 05:47 Labs: Laboratory Results - last 24 hr 07/30/20 07/30/20 07/30/20 14:45 14:45 16:36 WBC RBC Hgb Hct MCV MCH MCHC RDW Plt Count MPV Immature Gran % (Auto) Neut % (Auto) Lymph % (Auto) [place] % (Auto) Eos % (Auto) Baso % (Auto) Lymph # (Auto) [place] # (Auto) Eos # (Auto) Baso # (Auto) Abs Immat Gran (auto) Absolute Neuts (auto) Absolute Nucleated RBC Nucleated RBC % (auto) ESR 3 Sodium Potassium Chloride Carbon Dioxide Anion Gap BUN Creatinine Estim Creat Clear Calc Estimated GFR Random Glucose Calcium IgE 120 H Respiratory Panel [place] Cancelled Adenovirus (Rapid PCR) Cancelled B.pert (TEM-PCR) Cancelled B.parapertussis DNA PCR Cancelled C. pneumoniae DNA (PCR) Cancelled Coronavirus OC43 (PCR) Cancelled Coronavirus HKU1 (PCR) Cancelled Coronavirus 229E (PCR) Cancelled Coronavirus NL63 (PCR) Cancelled Human Metapneumovir PCR Cancelled Influenza A (RT-PCR) Cancelled Influenza B (RT-PCR) Cancelled M. pneumoniae (PCR) Cancelled Parainfluenza 1 (PCR) Cancelled Parainfluenza 2 (PCR) Cancelled Parainfluenza 3 (PCR) Cancelled Parainfluenza 4 (PCR) Cancelled RSV (PCR) Cancelled Entero/Rhino (PCR) Cancelled SARS-CoV-2 RNA (RT-PCR) Cancelled 07/31/20 07/31/20 05:47 05:47 WBC 8.8 RBC 3.99 L Hgb 13.2 L Hct 38.4 L MCV 96.2 MCH 33.1 H MCHC 34.4 RDW 12.6 Plt Count 201 MPV 8.5 L Immature Gran % (Auto) 0.9 H Neut % (Auto) 72.7 Lymph % (Auto) 14.6 L [place] % (Auto) 9.1 Eos % (Auto) 2.2 Baso % (Auto) 0.5 Lymph # (Auto) 1.3 [place] # (Auto) 0.8 Eos # (Auto) 0.2 Baso # (Auto) 0.0 Abs Immat Gran (auto) 0.08 H Absolute Neuts (auto) 6.4 Absolute Nucleated RBC 0.000 Nucleated RBC % (auto) 0.0 ESR Sodium 128 L Potassium 4.8 Chloride 94 L Carbon Dioxide 27 Anion Gap 12 BUN 19 H D Creatinine 0.62 Estim Creat Clear Calc 144.0 Estimated GFR > 60 Random Glucose 106 Calcium 9.0 IgE Respiratory Panel [place] Adenovirus (Rapid PCR) B.pert (TEM-PCR) B.parapertussis DNA PCR C. pneumoniae DNA (PCR) Coronavirus OC43 (PCR) Coronavirus HKU1 (PCR) Coronavirus 229E (PCR) Coronavirus NL63 (PCR) Human Metapneumovir PCR Influenza A (RT-PCR) Influenza B (RT-PCR) M. pneumoniae (PCR) Parainfluenza 1 (PCR) Parainfluenza 2 (PCR) Parainfluenza 3 (PCR) Parainfluenza 4 (PCR) RSV (PCR) Entero/Rhino (PCR) SARS-CoV-2 RNA (RT-PCR) Microbiology Microbiology Results: Microbiology 07/29/20 07:17 Blood - Venous Blood Culture - Preliminary No growth after 48 hours. 07/29/20 07:17 Blood - Venous Blood Culture - Preliminary No growth after 48 hours. Review of Systems Constitutional: Denies night sweats Denies change in voice, Denies lip swelling, Denies mouth pain, Reports nasal congestion, Reports nasal discharge and Denies tongue swelling Cardiovascular: Denies chest pain Respiratory: Reports cough Gastrointestinal: Denies abdominal pain Musculoskeletal: Denies no additional musculoskeletal complaints Denies Neuro-related abnormal movements Psychiatric: Denies no additional psychiatric complaints Hematologic/Lymphatic: Denies easy bleeding and Denies lymphadenopathy Allergic/Immunologic: Denies lip swelling and Denies tongue swelling Physical Exam Vital Signs: Vital Signs: Last Vital Signs Temp 98 F 07/31/20 11:36 Pulse 63 07/31/20 12:11 Resp 16 07/31/20 11:36 BP 138/65 07/31/20 11:36 Pulse Ox 91 L 07/31/20 11:36 Oxygen Flow Rate 2 07/29/20 08:50 Body Mass Index 22.4 Const: General: alert and in distress (while coughing) moderate Neck: Neck: Yes normal visual inspection, Yes full ROM and Yes no lymphadenopathy Chest: Chest palpation & inspection: normal inspection of the chest Resp: Auscultation: rhonchi, wheezes expiratory wheezes and inspiratory wheezes and diminished lung sounds Cardio: Rate: regular rate Rhythm: regular rhythm Heart sounds: S1 normal heart sound present and S2 normal heart sound present GI: Palpation (GI): Soft to palpation and nontender Auscultation: normal [place] sounds Skin: General skin exam: rashes and/or lesions noted Procedures Date of Service Date of Service: 07/31/20 Assessment and Plan Assessment and plan (1) Laryngotracheitis acute, with obstruction: Status: Acute (2) COPD exacerbation: Status: Acute Assessment and Plan: Increase solumedrol Magnesium 2gm x 1 now Receimic epi neb morphine for cough Continue azithromycin Awaiting respiratory panel Duoneb Q4 Time Spent With Patient Time: Total time spent is greater than 50% in coordination of care (as documented) at patient's floor/unit and/or counseling patient: Time with patient: 15 - 24 minutes Progress Note: Quality Stroke Does the patient have a stroke diagnosis?: No
[2020-07-31] MEDS: methylPREDNISolone Sod Succ 125 MG/2 ML VIAL 60 MG IVPUSH ×2 (13:57→18:07)
[2020-07-31] MEDS: Magnesium Sulfate/H2O 2 GM/50 ML PIGGYBACK IV (13:57)
--- NOTE | 2020-07-31 16:26 | P.PNNP_ITS ---
Subjective Subjective Date of Service: 07/31/20 Interval history: The patient was seen and evaluated this morning On Urea Denies any fever, chills or chest pain No reported other overnight events Physical Exam Vital Signs: Vital Signs: Last Vital Signs Temp 97.9 F 07/31/20 14:57 Pulse 76 07/31/20 15:12 Resp 16 07/31/20 14:57 BP 136/71 07/31/20 14:57 Pulse Ox 92 07/31/20 14:57 Oxygen Flow Rate 2 07/29/20 08:50 Body Mass Index 22.4 Const: Other: Constitutional : Alert, oriented, in mild respiratory distress Neck : Normal inspection, Supple Cardiovascular : RRR, S1 S2, no lower extremity edema Respiratory : Decreased bilateral air entry, no crackles, bilateral expiratory wheezes and rhonchi Gastrointestinal: soft, lax, Normal bowel sounds, Non tender Skin : Warm/Dry, No rash Neurological : Alert & oriented x3, No focal deficit General: alert and in dis tress (while coughing) moderate HENMT: General nose exam: Abnormal external nose present and Nasal discharge present Eyes: Pupils: Equal, round and reactive pupils present Neck: Neck: Yes normal visual inspection, Yes full ROM and Yes no lymphadenopathy Chest: Chest palpation & inspection: normal inspection of the chest Resp: Auscultation: rhonchi, wheezes expiratory wheezes and inspiratory wheezes and diminished lung sounds Cardio: Rate: regular rate Rhythm: regular rhythm Heart sounds: S1 normal heart sound present and S2 normal heart sound present GI: Palpation (GI): Soft to palpation and nontender Auscultation: normal bowel sounds : General: Yes no CVA tenderness Back/Spine/Pelvis: Back: no CVA tenderness Skin: General skin exam: rashes and/or lesions noted Neuro: Cranial nerves: Yes Equal, round and reactive pupils present Objective Data Labs CBC & Chem 7: 07/31/20 05:47 07/31/20 05:47 Labs: Laboratory Results - last 24 hr 07/30/20 07/30/20 07/31/20 14:45 16:36 05:47 WBC 8.8 RBC 3.99 L Hgb 13.2 L Hct 38.4 L MCV 96.2 MCH 33.1 H MCHC 34.4 RDW 12.6 Plt Count 201 MPV 8.5 L Immature Gran % (Auto) 0.9 H Neut % (Auto) 72.7 Lymph % (Auto) 14.6 L [place] % (Auto) 9.1 Eos % (Auto) 2.2 Baso % (Auto) 0.5 Lymph # (Auto) 1.3 [place] # (Auto) 0.8 Eos # (Auto) 0.2 Baso # (Auto) 0.0 Abs Immat Gran (auto) 0.08 H Absolute Neuts (auto) 6.4 Absolute Nucleated RBC 0.000 Nucleated RBC % (auto) 0.0 Sodium Potassium Chloride Carbon Dioxide Anion Gap BUN Creatinine Estim Creat Clear Calc Estimated GFR Random Glucose Calcium IgE 120 H Respiratory Panel Rasmussen Cancelled Adenovirus (Rapid PCR) Cancelled B.pert (TEM-PCR) Cancelled B.parapertussis DNA PCR Cancelled C. pneumoniae DNA (PCR) Cancelled Coronavirus OC43 (PCR) Cancelled Coronavirus HKU1 (PCR) Cancelled Coronavirus 229E (PCR) Cancelled Coronavirus NL63 (PCR) Cancelled Human Metapneumovir PCR Cancelled Influenza A (RT-PCR) Cancelled Influenza B (RT-PCR) Cancelled M. pneumoniae (PCR) Cancelled Parainfluenza 1 (PCR) Cancelled Parainfluenza 2 (PCR) Cancelled Parainfluenza 3 (PCR) Cancelled Parainfluenza 4 (PCR) Cancelled RSV (PCR) Cancelled Entero/Rhino (PCR) Cancelled SARS-CoV-2 RNA (RT-PCR) Cancelled 07/31/20 05:47 WBC RBC Hgb Hct MCV MCH MCHC RDW Plt Count MPV Immature Gran % (Auto) Neut % (Auto) Lymph % (Auto) [place] % (Auto) Eos % (Auto) Baso % (Auto) Lymph # (Auto) [place] # (Auto) Eos # (Auto) Baso # (Auto) Abs Immat Gran (auto) Absolute Neuts (auto) Absolute Nucleated RBC Nucleated RBC % (auto) Sodium 128 L Potassium 4.8 Chloride 94 L Carbon Dioxide 27 Anion Gap 12 BUN 19 H D Creatinine 0.62 Estim Creat Clear Calc 144.0 Estimated GFR > 60 Random Glucose 106 Calcium 9.0 IgE Respiratory Panel R[place]ussen Adenovirus (Rapid PCR) B.pert (TEM-PCR) B.parapertussis DNA PCR C. pneumoniae DNA (PCR) Coronavirus OC43 (PCR) Coronavirus HKU1 (PCR) Coronavirus 229E (PCR) Coronavirus NL63 (PCR) Human Metapneumovir PCR Influenza A (RT-PCR) Influenza B (RT-PCR) M. pneumoniae (PCR) Parainfluenza 1 (PCR) Parainfluenza 2 (PCR) Parainfluenza 3 (PCR) Parainfluenza 4 (PCR) RSV (PCR) Entero/Rhino (PCR) SARS-CoV-2 RNA (RT-PCR) Microbiology Microbiology Results: Microbiology 07/29/20 07:17 Blood - Venous Blood Culture - Preliminary No growth after 48 hours. 07/29/20 07:17 Blood - Venous Blood Culture - Preliminary No growth after 48 hours. Assessment & Plan Assessment and plan (1) Laryngotracheitis acute, with obstruction: Status: Acute (2) COPD exacerbation: Status: Acute Assessment and Plan: IMPRESSION: 59-year-old man with chronic hyponatremia. Pt has hypotonic hyponatremia and this is most likely due to the use of carbamazepine. He is currently asymptomatic from the hyponatremia. RECOMMENDATIONS: Continue oral free water restriction of 1.2 L per 24 hours Continue urea powder 15 g b.i.d. for the next few days try to maintain the serum sodium more than 130 millimoles per liter. No evidence of adrenal insufficiency and hypothyroidism We will follow him along with the team. Thx Time Spent With Patient Time: Total time spent is greater than 50% in coordination of care (as documented) at patient's floor/unit and/or counseling patient: Procedures Date of Service Date of Service: 07/31/20 Progress Note: Quality Stroke Does the patient have a stroke diagnosis?: No
[2020-08-01] VITALS (11 sets, daily range): BP systolic 140–155; BP diastolic 59–68; PULSE 62–82; RESP 16–18; TEMP 35.9–36.4; O2SAT 94–97
[2020-08-01] MEDS: methylPREDNISolone Sod Succ 125 MG/2 ML VIAL 60 MG IVPUSH ×4 (00:58→18:29)
[2020-08-01] MEDS: Albuterol Sulfate (0.083%) 2.5 MG/3 ML VIAL.NEB INHALE (03:43)
[2020-08-01] MEDS: Omeprazole 20 MG CAPSULE.DR PO (05:54)
[2020-08-01 06:49] LABS: Hematocrit 40.3 % (42-52); Mean Corpuscular HGB Conc 34.7 g/dl (31.0-36.0); Mean Platelet Volume 8.3 fL (9.4-12.4); Platelet Count 225 X10*3/uL (160-400); Red Blood Count 4.24 X10*6/uL (4.60-5.80); Red Cell Distribution Width 12.6 % (11.0-16.0); White Blood Count 10.8 X10*3/uL (4.8-10.8)
[2020-08-01 07:02] LABS: Adenovirus PCR Not Detected (Not Detect.); Bordetella parapertussis PCR Not Detected (Not Detect.); Bordetella pertussis PCR Not Detected (Not Detect.); Chlamydia pneumoniae PCR Not Detected (Not Detect.); Coronavirus 229E PCR Not Detected (Not Detect.); Coronavirus HKU1 PCR Not Detected (Not Detect.); Coronavirus NL63 PCR Not Detected (Not Detect.); Coronavirus OC43 PCR Not Detected (Not Detect.); Human metapneumovirus PCR Not Detected (Not Detect.); Influenza A PCR Not Detected (Not Detect.); Influenza B PCR Not Detected (Not Detect.); Mycoplasma pneumoniae PCR Not Detected (Not Detect.); Parainfluenza 1 PCR Not Detected (Not Detect.); Parainfluenza 2 PCR Not Detected (Not Detect.); Parainfluenza 3 PCR Not Detected (Not Detect.); Parainfluenza 4 PCR Not Detected (Not Detect.); RSV PCR Not Detected (Not Detect.); Rhino/Enterovirus PCR Not Detected (Not Detect.); SARS-CoV-2 PCR Not Detected (Not Detect.)
[2020-08-01 07:08] LABS: Anion Gap 12 (12-20); Blood Urea Nitrogen 17 mg/dL (9-16); Calcium 9.5 mg/dL (8.4-10.2); Carbon Dioxide 28 mmol/L (22-29); Chloride 94 mmol/L (96-108); Creatinine Clr Calc Pharmacy 135.3; Estimated Glomerular Filt Rate > 60; Glucose Random 125 mg/dL (60-115); Potassium 4.8 mmol/L (3.3-5.1); Sodium 129 mmol/L (135-145)
[2020-08-01 07:10] LABS: C Reactive Protein 0.28 mg/dL (< or = 0.50)
[2020-08-01] MEDS: Albuterol/Iprat 2.5/0.5MG 3 ML AMPUL.NEB INHALE ×4 (08:23→20:09)
[2020-08-01 08:33] LABS: B Type Natriuretic Peptide < 10 pg/mL (<100)
[2020-08-01] MEDS: 0.9 % Sodium Chloride Flush 3 ML SYRINGE IVFLUSH ×3 (08:57→21:18)
[2020-08-01] MEDS: Acetaminophen 325 MG TABLET 650 MG PO ×2 (08:58→18:35)
[2020-08-01] MEDS: Benzonatate 100 MG CAPSULE 200 MG PO ×3 (08:58→21:18)
[2020-08-01] MEDS: Fluticasone Propionate Nasal 16 GM SPRAY 2 SPRAY NOSTRIL-B (08:58)
[2020-08-01] MEDS: Loratadine 10 MG TABLET PO (08:58)
[2020-08-01] MEDS: guaiFENesin DM 600/30 1 TAB TAB.ER.12H 2 TAB PO ×2 (08:58→21:18)
[2020-08-01] MEDS: Azithromycin 500 MG TABLET PO (08:58)
[2020-08-01] MEDS: Rivaroxaban 10 MG TABLET PO (08:59)
[2020-08-01] MEDS: Urea 15 GM POWDER 30 GM PO ×2 (08:59→21:18)
[2020-08-01] MEDS: Aspirin Enteric Coated 81 MG TABLET.DR PO (08:59)
[2020-08-01] MEDS: carBAMazepine 200 MG TABLET 600 MG PO ×2 (08:59→21:18)
[2020-08-01] MEDS: Racepinephrine HCL 0.5 ML VIAL.NEB INHALE ×2 (11:39→20:09)
--- NOTE | 2020-08-01 12:27 | P.PNIM_ITS ---
Subjective Subjective Date of Service: 08/01/20 Interval History: The patient was seen and evaluated this morning Feels little bit better today with improvement in bouts of coughing Mildly distressed call with oxygen supplement Denies any fever, chills or chest pain No reported other overnight events Review of Systems No fever, chills but has generalized weakness No chest pain, palpitation Complaining mainly of shortness of breath and bouts of coughing No abdominal pain, nausea or vomiting No urinary symptoms No any rash or wounds Physical Exam Vital Signs: Vital Signs: Last Vital Signs Temp 96.7 F L 08/01/20 11:13 Pulse 76 08/01/20 11:39 Resp 18 08/01/20 11:13 BP 141/59 H 08/01/20 11:13 Pulse Ox 95 08/01/20 11:13 Oxygen Flow Rate 2 07/29/20 08:50 Body Mass Index 22.4 Const: Other: Constitutional : Alert, oriented, in mild respiratory distress Neck : Normal inspection, Supple Cardiovascular : RRR, S1 S2, no lower extremity edema Respiratory : Decreased bilateral air entry, no crackles, improving bilateral expiratory wheezes and rhonchi Gastrointestinal: soft, lax, Normal bowel sounds, Non tender Skin : Warm/Dry, No rash Neurological : Alert & oriented x3, No focal deficit Objective Data Current Medications Generic Name Dose Route Start Last Admin Trade Name Freq PRN Reason Stop Dose Admin Acetaminophen 650 mg 07/29/20 13:28 08/01/20 08:58 Acetaminophen 325 Mg Tablet PO 650 mg Q6H PRN Administration Pain, Mild (Pain Scale 1-3) Albuterol Sulfate 2.5 mg 07/29/20 12:43 08/01/20 03:43 Albuterol Sulfate (0.083%) 2.5 Mg/3 Ml Vial.Neb INHALE 2.5 mg Q3H PRN Administration Shortness of Breath/Wheezing Albuterol Sulfate 2.5 mg 07/29/20 13:28 Albuterol Sulfate (0.083%) 2.5 Mg/3 Ml Vial.Neb INHALE Q4H PRN Respiratory Distress Albuterol/Ipratropium 3 ml 07/29/20 12:00 08/01/20 11:38 Albuterol/Iprat 2.5/0.5mg 3 Ml Ampul.Neb INHALE 3 ml RQ4H WHILE AWAKE KAVEH Administration Aspirin 81 mg 07/29/20 14:00 08/01/20 08:59 Aspirin Enteric Coated 81 Mg Tablet. PO 81 mg DAILY KAVEH Administration Azithromycin 500 mg 07/29/20 09:00 08/01/20 08:58 Azithromycin 500 Mg Tablet PO 500 mg Q24H KAVEH Administration Benzocaine 1 lozenge 07/29/20 20:20 07/30/20 06:05 Throat Lozenge, Medicated Lozenge MUCOUS MEM 1 lozenge Q2H PRN Administration Sore Throat Benzonatate 200 mg 07/30/20 15:30 08/01/20 08:58 Benzonatate 100 Mg Capsule PO 200 mg TID KAVEH Administration Carbamazepine 600 mg 07/29/20 14:00 08/01/20 08:59 Carbamazepine 200 Mg Tablet PO 600 mg BID KAVEH Administration Epinephrine 0.5 ml 08/01/20 10:00 08/01/20 11:39 Racepinephrine Hcl 0.5 Ml Vial.Neb INHALE 0.5 ml TID KAVEH Administration Fluticasone Propionate 2 spray 07/29/20 14:00 08/01/20 08:58 Fluticasone Propionate Nasal 16 Gm [place] NOSTRIL-B 2 spray DAILY KAVEH Administration Guaifenesin/Dextromethorphan 2 tab 07/30/20 14:30 08/01/20 08:58 Guaifenesin Dm 600/30 1 Tab Tab.Er.12h PO 2 tab BID KAVEH Administration Loratadine 10 mg 07/29/20 13:28 08/01/20 08:58 Loratadine 10 Mg Tablet PO 10 mg DAILY PRN Administration Runny Nose Methylprednisolone Sodium Succinate 60 mg 07/31/20 12:30 08/01/20 05:54 Methylprednisolone Sod Succ 125 Mg/2 Ml Vial IVPUSH 60 mg Q6H KAVEH Administration Omeprazole 20 mg 07/30/20 06:30 08/01/20 05:54 Omeprazole 20 Mg Capsule. PO 20 mg DAILY@0630 [facility] Administration Ondansetron HCl 4 mg 07/29/20 13:28 07/31/20 11:04 Ondansetron Hcl 4 Mg/2 Ml Vial IVPUSH 4 mg Q8H PRN Administration Nausea and Vomiting Pharmacy Consult 1 each 07/29/20 07:36 Consult Rx Perform Med Rec MISCELLANE ONCE PRN Consult order Pharmacy Consult 1 each 07/29/20 08:24 Consult Rx Perform Med Rec MISCELLANE ONCE PRN Consult order Rivaroxaban 10 mg 07/29/20 14:00 08/01/20 08:59 Rivaroxaban 10 Mg Tablet PO 10 mg DAILY KAVEH Administration Sodium Chloride 3 ml 07/29/20 16:00 08/01/20 08:57 0.9 % Sodium Chloride Flush 3 Ml Syringe IVFLUSH 3 ml QSHIFT KAVEH Administration Urea 30 gm 08/01/20 09:00 08/01/20 08:59 Urea 15 Gm Powder PO 30 gm BID KAVEH Administration Labs CBC & Chem 7: 08/01/20 06:21 08/01/20 06:21 Labs: Laboratory Results - last 24 hr 07/31/20 08/01/20 08/01/20 14:55 06:21 06:21 WBC 10.8 RBC 4.24 L Hgb 14.0 Hct 40.3 L MCV 95.0 MCH 33.0 MCHC 34.7 RDW 12.6 Plt Count 225 MPV 8.3 L Absolute Nucleated RBC 0.000 Nucleated RBC % (auto) 0.0 Sodium 129 L Potassium 4.8 Chloride 94 L Carbon Dioxide 28 Anion Gap 12 BUN 17 H Creatinine 0.66 Estim Creat Clear Calc 135.3 Estimated GFR > 60 Random Glucose 125 H Calcium 9.5 C-Reactive Protein B-Natriuretic Peptide Respiratory Panel Rasmussen See Note Adenovirus (Rapid PCR) Not Detected B.pert (TEM-PCR) Not Detected B.parapertussis DNA PCR Not Detected C. pneumoniae DNA (PCR) Not Detected Coronavirus OC43 (PCR) Not Detected Coronavirus HKU1 (PCR) Not Detected Coronavirus 229E (PCR) Not Detected Coronavirus NL63 (PCR) Not Detected Human Metapneumovir PCR Not Detected Influenza A (RT-PCR) Not Detected Influenza B (RT-PCR) Not Detected M. pneumoniae (PCR) Not Detected Parainfluenza 1 (PCR) Not Detected Parainfluenza 2 (PCR) Not Detected Parainfluenza 3 (PCR) Not Detected Parainfluenza 4 (PCR) Not Detected RSV (PCR) Not Detected Entero/Rhino (PCR) Not Detected SARS-CoV-2 RNA (RT-PCR) Not Detected 08/01/20 08/01/20 06:21 06:21 WBC RBC Hgb Hct MCV MCH MCHC RDW Plt Count MPV Absolute Nucleated RBC Nucleated RBC % (auto) Sodium Potassium Chloride Carbon Dioxide Anion Gap BUN Creatinine Estim Creat Clear Calc Estimated GFR Random Glucose Calcium C-Reactive Protein 0.28 B-Natriuretic Peptide < 10 Respiratory Panel Rasmussen Adenovirus (Rapid PCR) B.pert (TEM-PCR) B.parapertussis DNA PCR C. pneumoniae DNA (PCR) Coronavirus OC43 (PCR) Coronavirus HKU1 (PCR) Coronavirus 229E (PCR) Coronavirus NL63 (PCR) Human Metapneumovir PCR Influenza A (RT-PCR) Influenza B (RT-PCR) M. pneumoniae (PCR) Parainfluenza 1 (PCR) Parainfluenza 2 (PCR) Parainfluenza 3 (PCR) Parainfluenza 4 (PCR) RSV (PCR) Entero/Rhino (PCR) SARS-CoV-2 RNA (RT-PCR) Microbiology Microbiology Results: Microbiology 07/29/20 07:17 Blood Culture - Preliminary Blood - Venous No growth after 48 hours. 07/29/20 07:17 Blood Culture - Preliminary Blood - Venous No growth after 48 hours. Quality Stroke Does the patient have a stroke diagnosis?: No VTE Prior VTE?: No VTE Risk Level:: Medical - moderate - high VTE Device Contraindication: Treatment Not Indicated VTE Drug Contraindication: N/A - Med Ordered Assessment and Plan (1) Dyspnea on exertion: Status: Acute (2) COPD exacerbation: Status: Acute (3) Acute hyponatremia: Status: Acute (4) Lactic acid acidosis: Status: Acute Assessment and Plan: A 59 years old male with PMH of COPD, ankylosing spondylitis, bronchitis among others who presented to the hospital with complaints of dyspnea and shortness of breath for the last 2 weeks. # Acute hyponatremia Hypotonic Could be secondary to medications, decreased p.o. intake, SIADH Sodium 129 today Follow BMP Increase urea to 30 b.i.d. Nephrology input appreciated,urea and water restriction # Respiratory distress # COPD exacerbation # Tracheobronchitis CXR negative for any acute finding Echo showed mild pulmonary hypertension CT chest with contrast showing nonspecific changes with no acute findings Bronchodilator nebulizers Azithromycin for anti-inflammatory effect Increase IV steroids To use racemic epinephrine nebulizer Oxygen supplement as needed, wean down as tolerated Pending respiratory viral panel pulmonology evaluation appreciated, try epinephrine nebulizers and morphine # Lactic acidosis, resolved 2/2 Albuterol usage not sepsis. DVT PPX Xarelto
[2020-08-02] VITALS (14 sets, daily range): BP systolic 132–164; BP diastolic 58–70; PULSE 62–120; RESP 16–20; TEMP 36.2–36.7; O2SAT 90–98
[2020-08-02] MEDS: methylPREDNISolone Sod Succ 125 MG/2 ML VIAL 60 MG IVPUSH ×5 (00:10→23:51)
[2020-08-02] MEDS: Albuterol Sulfate (0.083%) 2.5 MG/3 ML VIAL.NEB INHALE ×2 (00:22→04:44)
[2020-08-02] MEDS: Omeprazole 20 MG CAPSULE.DR PO (06:06)
[2020-08-02 07:09] LABS: Anion Gap 11 (12-20); Blood Urea Nitrogen 27 mg/dL (9-16); Calcium 9.3 mg/dL (8.4-10.2); Carbon Dioxide 28 mmol/L (22-29); Chloride 98 mmol/L (96-108); Creatinine Clr Calc Pharmacy 129.4; Estimated Glomerular Filt Rate > 60; Glucose Random 118 mg/dL (60-115); Potassium 4.1 mmol/L (3.3-5.1); Sodium 133 mmol/L (135-145)
[2020-08-02] MEDS: Albuterol/Iprat 2.5/0.5MG 3 ML AMPUL.NEB INHALE ×4 (07:46→20:04)
[2020-08-02] MEDS: 0.9 % Sodium Chloride Flush 3 ML SYRINGE IVFLUSH ×3 (09:30→20:55)
[2020-08-02] MEDS: Rivaroxaban 10 MG TABLET PO (09:31)
[2020-08-02] MEDS: Urea 15 GM POWDER 30 GM PO ×2 (09:31→20:55)
[2020-08-02] MEDS: carBAMazepine 200 MG TABLET 600 MG PO ×2 (09:31→20:54)
[2020-08-02] MEDS: Aspirin Enteric Coated 81 MG TABLET.DR PO (09:31)
[2020-08-02] MEDS: Benzonatate 100 MG CAPSULE 200 MG PO ×3 (09:31→20:54)
[2020-08-02] MEDS: Azithromycin 500 MG TABLET PO (09:31)
[2020-08-02] MEDS: guaiFENesin DM 600/30 1 TAB TAB.ER.12H 2 TAB PO ×2 (09:31→20:54)
[2020-08-02] MEDS: Fluticasone Propionate Nasal 16 GM SPRAY 2 SPRAY NOSTRIL-B (09:38)
--- NOTE | 2020-08-02 12:31 | P.PNPL_ITS ---
Subjective Subjective Date of Service: 08/02/20 Principal diagnosis: Acute respiratory failure Interval history: 59-year-old gentleman, lifetime nonsmoker, with underlying history of ankylosing spondylitis on Remicade, followed on outpatient basis for chronic recurrent organizing pneumonia, chronic productive cough and dyspnea. He has been hospitalized on 07/29/2020 with worsening cough and dyspnea. He has been treated with Levaquin and Solu-Medrol with significant improvement. However, he still significantly off his baseline. Objective Data Labs CBC & Chem 7: 08/01/20 06:21 08/02/20 05:49 Labs: Laboratory Results - last 24 hr 08/02/20 05:49 Sodium 133 L Potassium 4.1 Chloride 98 Carbon Dioxide 28 Anion Gap 11 L BUN 27 H D Creatinine 0.69 Estim Creat Clear Calc 129.4 Estimated GFR > 60 Random Glucose 118 H Calcium 9.3 Microbiology Microbiology Results: Microbiology 07/29/20 07:17 Blood - Venous Blood Culture - Preliminary No growth after 48 hours. 07/29/20 07:17 Blood - Venous Blood Culture - Preliminary No growth after 48 hours. Review of Systems Cardiovascular: Reports dyspnea Respiratory: Reports cough, Reports excessive phlegm production and Reports dyspnea Physical Exam Vital Signs: Vital Signs: Last Vital Signs Temp 98.1 F 08/02/20 12:00 Pulse 107 H 08/02/20 12:00 Resp 19 08/02/20 12:00 BP 164/70 H 08/02/20 12:00 Pulse Ox 91 L 08/02/20 12:00 Oxygen Flow Rate 2 07/29/20 08:50 Body Mass Index 22.4 Const: General: no acute distress, alert and awake Eyes: Sclerae: sclerae normal EOM: EOMs intact bilaterally Neck: Neck: Yes no lymphadenopathy, Yes trachea midline and Yes supple Resp: Effort & Inspection: normal respiratory effort and no respiratory di stress Auscultation: rhonchi (Diffuse bilateral) Cardio: Rate: regular rate Rhythm: regular rhythm Heart sounds: no gallops, no murmurs and no rubs GI: Palpation (GI): Soft to palpation and Other GI palpation findings present ( Nontender) Auscultation: normal bowel sounds Extrem: General: Yes no pedal edema, No clubbing and No cyanosis Procedures Date of Service Date of Service: 08/02/20 Assessment and Plan Assessment and plan (1) Chronic cough: Status: Acute Assessment and Plan: Impression: 59-year-old gentleman with underlying recurrent organizing pneumonia admitted with worsening productive cough and dyspnea. Treated with a course of systemic glucocorticoids and Levaquin with significant improvement. Recommendation: Events though patient has significantly improved, he is still significantly off his baseline. Would suggest to continue Levaquin 750 daily and prednisone 60 mg daily for the next 10-14 days, at least until an outpatient follow-up. (2) Organizing pneumonia: Status: Acute (3) Dyspnea on exertion: Status: Acute (4) Bronchitis: Status: Acute Time Spent With Patient Time with patient: 25 - 35 minutes Progress Note: Quality Stroke Does the patient have a stroke diagnosis?: No
--- NOTE | 2020-08-02 12:45 | MHC.CM.PN ---
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
--- NOTE | 2020-08-02 14:09 | HO.PM.IMPN ---
Subjective Subjective Date of Service: 08/02/20 Interval History: The patient was seen and evaluated this morning Feels better today as the cough decreased as shortness of breath mildly improved a Mildly distressed with ambulation Denies any fever, chills or chest pain No reported other overnight events Review of Systems No fever, chills but has generalized weakness No chest pain, palpitation Complaining mainly of shortness of breath and bouts of coughing which are improving No abdominal pain, nausea or vomiting No urinary symptoms No any rash or wounds Physical Exam Vital Signs: Vital Signs: Last Vital Signs Temp 98.1 F 08/02/20 12:00 Pulse 107 H 08/02/20 12:00 Resp 19 08/02/20 12:00 BP 164/70 H 08/02/20 12:00 Pulse Ox 91 L 08/02/20 12:00 Oxygen Flow Rate 2 07/29/20 08:50 Body Mass Index 22.4 Const: Other: Constitutional : Alert, oriented, dyspnea with minimal activity, in mild respiratory distress Neck : Normal inspection, Supple Cardiovascular : RRR, S1 S2, no lower extremity edema Respiratory : Decreased bilateral air entry, no crackles, improving bilateral expiratory wheezes and rhonchi Gastrointestinal: soft, lax, Normal bowel sounds, Non tender Skin : Warm/Dry, No rash Neurological : Alert & oriented x3, No focal deficit Objective Data Current Medications Generic Name Dose Route Start Last Admin Trade Name Freq PRN Reason Stop Dose Admin Acetaminophen 650 mg 07/29/20 13:28 08/01/20 18:35 Acetaminophen 325 Mg Tablet PO 650 mg Q6H PRN Administration Pain, Mild (Pain Scale 1-3) Albuterol Sulfate 2.5 mg 07/29/20 12:43 08/02/20 04:44 Albuterol Sulfate (0.083%) 2.5 Mg/3 Ml Vial.Neb INHALE 2.5 mg Q3H PRN Administration Shortness of Breath/Wheezing Albuterol Sulfate 2.5 mg 07/29/20 13:28 Albuterol Sulfate (0.083%) 2.5 Mg/3 Ml Vial.Neb INHALE Q4H PRN Respiratory Distress Albuterol/Ipratropium 3 ml 07/29/20 12:00 08/02/20 11:53 Albuterol/Iprat 2.5/0.5mg 3 Ml Ampul.Neb INHALE 3 ml RQ4H WHILE AWAKE KAVEH Administration Aspirin 81 mg 07/29/20 14:00 08/02/20 09:31 Aspirin Enteric Coated 81 Mg Tablet. PO 81 mg DAILY KAVEH Administration Benzocaine 1 lozenge 07/29/20 20:20 07/30/20 06:05 Throat Lozenge, Medicated Lozenge MUCOUS MEM 1 lozenge Q2H PRN Administration Sore Throat Benzonatate 200 mg 07/30/20 15:30 08/02/20 09:31 Benzonatate 100 Mg Capsule PO 200 mg TID KAVEH Administration Carbamazepine 600 mg 07/29/20 14:00 08/02/20 09:31 Carbamazepine 200 Mg Tablet PO 600 mg BID KAVEH Administration Epinephrine 0.5 ml 08/01/20 10:00 08/02/20 08:58 Racepinephrine Hcl 0.5 Ml Vial.Neb INHALE Not Given TID [facility] Fluticasone Propionate 2 spray 07/29/20 14:00 08/02/20 09:38 Fluticasone Propionate Nasal 16 Gm [place] NOSTRIL-B 2 spray DAILY [facility] Administration Guaifenesin/Dextromethorphan 2 tab 07/30/20 14:30 08/02/20 09:31 Guaifenesin Dm 600/30 1 Tab Tab.Er.12h PO 2 tab BID KVAEH Administration Levofloxacin 750 mg 08/03/20 09:00 Levofloxacin 750 Mg Tablet PO Q24H [facility] Loratadine 10 mg 07/29/20 13:28 08/01/20 08:58 Loratadine 10 Mg Tablet PO 10 mg DAILY PRN Administration Runny Nose Methylprednisolone Sodium Succinate 60 mg 07/31/20 12:30 08/02/20 12:48 Methylprednisolone Sod Succ 125 Mg/2 Ml Vial IVPUSH 60 mg Q6H KAVEH Administration Omeprazole 20 mg 07/30/20 06:30 08/02/20 06:06 Omeprazole 20 Mg Capsule. PO 20 mg DAILY@0630 [facility] Administration Ondansetron HCl 4 mg 07/29/20 13:28 07/31/20 11:04 Ondansetron Hcl 4 Mg/2 Ml Vial IVPUSH 4 mg Q8H PRN Administration Nausea and Vomiting Pharmacy Consult 1 each 07/29/20 07:36 Consult Rx Perform Med Rec MISCELLANE ONCE PRN Consult order Pharmacy Consult 1 each 07/29/20 08:24 Consult Rx Perform Med Rec MISCELLANE ONCE PRN Consult order Rivaroxaban 10 mg 07/29/20 14:00 08/02/20 09:31 Rivaroxaban 10 Mg Tablet PO 10 mg DAILY KAVEH Administration Sodium Chloride 3 ml 07/29/20 16:00 08/02/20 09:30 0.9 % Sodium Chloride Flush 3 Ml Syringe IVFLUSH 3 ml QSHIFT KAVEH Administration Urea 30 gm 08/01/20 09:00 08/02/20 09:31 Urea 15 Gm Powder PO 30 gm BID KAVEH Administration Labs CBC & Chem 7: 08/01/20 06:21 08/02/20 05:49 Labs: Laboratory Results - last 24 hr 08/02/20 05:49 Sodium 133 L Potassium 4.1 Chloride 98 Carbon Dioxide 28 Anion Gap 11 L BUN 27 H D Creatinine 0.69 Estim Creat Clear Calc 129.4 Estimated GFR > 60 Random Glucose 118 H Calcium 9.3 Quality Stroke Does the patient have a stroke diagnosis?: No VTE Prior VTE?: No VTE Risk Level:: Medical - moderate - high VTE Device Contraindication: Treatment Not Indicated VTE Drug Contraindication: N/A - Med Ordered Assessment and Plan (1) Dyspnea on exertion: Status: Acute (2) COPD exacerbation: Status: Inactive (3) Acute hyponatremia: Status: Acute (4) Lactic acid acidosis: Status: Acute Assessment and Plan: A 59 years old male with PMH of COPD, ankylosing spondylitis, bronchitis among others who presented to the hospital with complaints of dyspnea and shortness of breath for the last 2 weeks. # Acute hyponatremia Hypotonic Could be secondary to medications, decreased p.o. intake, SIADH Sodium 133 today Follow BMP Continue urea to 30 b.i.d. Nephrology input appreciated,urea and water restriction # Respiratory distress # ILD exacerbation # Tracheobronchitis CXR negative for any acute finding Echo showed mild pulmonary hypertension CT chest with contrast showing nonspecific changes with no acute findings Bronchodilator nebulizers Azithromycin for anti-inflammatory effect, to place with Levaquin for 10 days Increase IV steroids Discontinue racemic epinephrine nebulizer Wean down Oxygen supplement as tolerated, does not require home oxygen Negative respiratory viral panel pulmonology evaluation appreciated, discharge home prednisone 60 mg daily and Levaquin # Lactic acidosis, resolved 2/2 Albuterol usage not sepsis. DVT PPX Xarelto
--- NOTE | 2020-08-02 16:04 | PC.NURSE ---
Skin assessment completed today. Blanchable redness to bilateral elbows from pressure. Applied foam bandage on each elbow for protection. No other skin issues found.
--- NOTE | 2020-08-02 17:08 | PM.PNNEP ---
Subjective Subjective Date of Service: 08/02/20 Principal diagnosis: Acute respiratory failure Interval history: The patient was seen and evaluated SOB better Na is better Denies any fever, chills or chest pain No reported other overnight events Physical Exam Vital Signs: Vital Signs: Last Vital Signs Temp 97.3 F 08/02/20 15:27 Pulse 79 08/02/20 16:21 Resp 18 08/02/20 15:27 BP 132/58 L 08/02/20 15:27 Pulse Ox 93 08/02/20 15:27 Oxygen Flow Rate 2 07/29/20 08:50 Body Mass Index 22.4 Const: Other: Other: Constitutional : Alert, oriented, dyspnea with minimal activity, in mild respiratory distress Neck : Normal inspection, Supple Cardiovascular : RRR, S1 S2, no lower extremity edema Respiratory : Decreased bilateral air entry, no crackles, improving bilateral expiratory wheezes and rhonchi Gastrointestinal: soft, lax, Normal bowel sounds, Non tender Skin : Warm/Dry, No rash Neurological : Alert & oriented x3, No focal deficit Objective Data Labs CBC & Chem 7: 08/01/20 06:21 08/02/20 05:49 Labs: Laboratory Results - last 24 hr 08/02/20 05:49 Sodium 133 L Potassium 4.1 Chloride 98 Carbon Dioxide 28 Anion Gap 11 L BUN 27 H D Creatinine 0.69 Estim Creat Clear Calc 129.4 Estimated GFR > 60 Random Glucose 118 H Calcium 9.3 Microbiology Microbiology Results: Microbiology 07/29/20 07:17 Blood - Venous Blood Culture - Preliminary No growth after 48 hours. 07/29/20 07:17 Blood - Venous Blood Culture - Preliminary No growth after 48 hours. Assessment & Plan Time Spent With Patient Time: 59-year-old man with chronic hyponatremia. Pt has hypotonic hyponatremia and this is most likely due to the use of carbamazepine. He is currently asymptomatic from the hyponatremia. RECOMMENDATIONS: Continue oral free water restriction - Can change to 1.5 L Continue urea powder 30 g b.i.d. try to maintain the serum sodium around 135 millimoles per liter. No evidence of adrenal insufficiency and hypothyroidism We will follow him along with the team. Thx Total time spent is greater than 50% in coordination of care (as documented) at patient's floor/unit and/or counseling patient: Procedures Date of Service Date of Service: 08/02/20 Progress Note: Quality Stroke Does the patient have a stroke diagnosis?: No
[2020-08-02] MEDS: Acetaminophen 325 MG TABLET 650 MG PO (23:54)
[2020-08-03] MEDS: Albuterol Sulfate (0.083%) 2.5 MG/3 ML VIAL.NEB INHALE (00:13)
[2020-08-03 00:15] VITALS: PULSE 79; O2SAT 95
[2020-08-03 04:00] VITALS: BP 147/62; PULSE 76; RESP 18; TEMP 36.5; O2SAT 96
[2020-08-03] MEDS: Omeprazole 20 MG CAPSULE.DR PO (05:53)
[2020-08-03] MEDS: methylPREDNISolone Sod Succ 125 MG/2 ML VIAL 60 MG IVPUSH ×2 (05:53→12:50)
[2020-08-03 07:29] LABS: Anion Gap 15 (12-20); Blood Urea Nitrogen 33 mg/dL (9-16); Calcium 9.7 mg/dL (8.4-10.2); Carbon Dioxide 26 mmol/L (22-29); Chloride 101 mmol/L (96-108); Creatinine Clr Calc Pharmacy 129.4; Estimated Glomerular Filt Rate > 60; Glucose Random 99 mg/dL (60-115); Sodium 137 mmol/L (135-145)
[2020-08-03 08:00] VITALS: BP 141/58; PULSE 76; RESP 16; TEMP 36.1; O2SAT 90
[2020-08-03 08:25] VITALS: PULSE 93; O2SAT 90
[2020-08-03] MEDS: Albuterol/Iprat 2.5/0.5MG 3 ML AMPUL.NEB INHALE ×2 (08:25→12:42)
[2020-08-03] MEDS: Urea 15 GM POWDER 30 GM PO (09:28)
[2020-08-03] MEDS: carBAMazepine 200 MG TABLET 600 MG PO (09:30)
[2020-08-03] MEDS: guaiFENesin DM 600/30 1 TAB TAB.ER.12H 2 TAB PO (09:30)
[2020-08-03] MEDS: levoFLOXacin 750 MG TABLET PO (09:30)
[2020-08-03] MEDS: Rivaroxaban 10 MG TABLET PO (09:30)
[2020-08-03] MEDS: Aspirin Enteric Coated 81 MG TABLET.DR PO (09:31)
[2020-08-03] MEDS: 0.9 % Sodium Chloride Flush 3 ML SYRINGE IVFLUSH (09:31)
[2020-08-03] MEDS: Benzonatate 100 MG CAPSULE 200 MG PO (09:31)
[2020-08-03] MEDS: Fluticasone Propionate Nasal 16 GM SPRAY 2 SPRAY NOSTRIL-B (09:37)
--- NOTE | 2020-08-03 11:33 | P.PNNP_ITS ---
Subjective Subjective Date of Service: 08/03/20 Principal diagnosis: Acute respiratory failure Interval history: The patient was seen and evaluated SOB better Na is better Denies any fever, chills or chest pain No reported other overnight events Physical Exam Vital Signs: Vital Signs: Last Vital Signs Temp 97.0 F 08/03/20 08:00 Pulse 93 08/03/20 08:25 Resp 16 08/03/20 08:00 BP 141/58 H 08/03/20 08:00 Pulse Ox 90 L 08/03/20 08:00 Oxygen Flow Rate 2 07/29/20 08:50 Body Mass Index 22.4 Const: Other: Other: Constitutional : Alert, oriented, dyspnea with minimal activity, in mild respiratory distress Neck : Normal inspection, Supple Cardiovascular : RRR, S1 S2, no lower extremity edema Respiratory : Decreased bilateral air entry, no crackles, improving bilateral expiratory wheezes and rhonchi Gastrointestinal: soft, lax, Normal bowel sounds, Non tender Skin : Warm/Dry, No rash Neurological : Alert & oriented x3, No focal deficit General: alert and in distress (while coughing) moderate HENMT: General nose exam: Abnormal external nose present and Nasal discharge present Eyes: Pupils: Equal, round and reactive pupils present Neck: Neck: Yes normal visual inspection, Yes full ROM and Yes no lymp hadenopathy Chest: Chest palpation & inspection: normal inspection of the chest Resp: Auscultation: rhonchi, wheezes expiratory wheezes and inspiratory wheezes and diminished lung sounds Cardio: Rate: regular rate Rhythm: regular rhythm Heart sounds: S1 normal heart sound present and S2 normal heart sound present GI: Palpation (GI): Soft to palpation and nontender Auscultation: normal bowel sounds : General: Yes no CVA tenderness Back/Spine/Pelvis: Back: no CVA tenderness Skin: General skin exam: rashes and/or lesions noted Neuro: Cranial nerves: Yes Equal, round and reactive pupils present Objective Data Labs CBC & Chem 7: 08/01/20 06:21 08/03/20 06:23 Labs: Laboratory Results - last 24 hr 08/03/20 06:23 Sodium 137 Potassium 5.0 D Chloride 101 Carbon Dioxide 26 Anion Gap 15 BUN 33 H Creatinine 0.69 Estim Creat Clear Calc 129.4 Estimated GFR > 60 Random Glucose 99 Calcium 9.7 Microbiology Microbiology Results: Microbiology 07/29/20 07:17 Blood - Venous Blood Culture - Final No growth after 5 days. 07/29/20 07:17 Blood - Venous Blood Culture - Final No growth after 5 days. Assessment & Plan Assessment and plan (1) Dyspnea on exertion: Status: Acute (2) COPD exacerbation: Status: Inactive (3) Acute hyponatremia: Status: Acute (4) Lactic acid acidosis: Status: Acute Assessment and Plan: Time: 59-year-old man with chronic hyponatremia. Pt has hypotonic hyponatremia and this is most likely due to the use of carbamazepine. He is currently asymptomatic from the hyponatremia. RECOMMENDATIONS: Continue oral free water restriction - Can change to 1.5 L urea dosing changed to 30 G daily- Can go down to 15 g daily as out pt try to maintain the serum sodium around 130- 135 millimoles per liter as out pt No evidence of adrenal insufficiency and hypothyroidism We will follow him along with the team. Thx Time Spent With Patient Time: Total time spent is greater than 50% in coordination of care (as documented) at patient's floor/unit and/or counseling patient: Procedures Date of Service Date of Service: 08/03/20 Progress Note: Quality Stroke Does the patient have a stroke diagnosis?: No
[2020-08-03 11:43] VITALS: BP 144/66; PULSE 81; RESP 17; TEMP 36.3; O2SAT 94
--- NOTE | 2020-08-03 12:01 | MHC.CM.PN ---
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 with no oxygen needs discharge plan home with new referral to the [facility] for diagnosis sign /symptom management detail paln of whom to call for what and when. and medication reconcialtion spoke with hospitalist about requesting script ofr a cane transportation patient to self arrange . [facility]
--- NOTE | 2020-08-03 12:04 | P.DS_ITS ---
DS: Providers Provider Date of Service: 08/03/20 Date of admission: 07/29/20 08:50 Primary care physician: Sussy Cotter DO Consults: 07/30/20 08:01 Consult to Nephrology Routine Consulting Provider: Jason Fernandez Reason for consultation: Hyponatremia for your kind eval. 07/30/20 10:09 Consult to Pulmonology Routine Consulting Provider: Kevin Rogers Reason for consultation: Dyspnea, SOB at rest, Hx organizing PNA for your kind eval DS: Diagnosis Discharge Diagnosis (1) Dyspnea on exertion: Status: Acute (2) COPD exacerbation: Status: Inactive (3) Acute hyponatremia: Status: Acute (4) Lactic acid acidosis: Status: Acute (5) Laryngotracheitis acute, with obstruction: Status: Acute (6) Tracheobronchitis: Status: Acute (7) Dyspnea: Status: Acute DS: Medications Discharge Medications Home Medications: Home Medications Medication Instructions Recorded Confirmed albuterol sulfate 90 mcg/actuation 2 puff INHALATION Q6H PRN 03/10/20 07/29/20 aerosol inhaler aspirin 81 mg tablet,delayed 81 mg PO DAILY 03/10/20 07/29/20 release carbamazepine 200 mg tablet 600 mg PO BID 03/10/20 07/29/20 cetirizine 10 mg tablet 10 mg PO DAILY PRN 03/10/20 07/29/20 fluticasone propionate 50 2 spray INTRANASAL DAILY 03/10/20 07/29/20 mcg/actuation nasal spray,suspension omeprazole 20 mg capsule,delayed 20 mg PO DAILY@0630 03/10/20 07/29/20 release simvastatin 20 mg tablet 20 mg PO BEDTIME 03/10/20 07/29/20 albuterol sulfate 2.5 mg INHALATION Q4H PRN 07/29/20 07/29/20 prednisone 30 mg PO DAILY 07/29/20 07/29/20 Previous Rx's Medication Instructions Recorded benzonatate 100 mg capsule 200 mg PO TID PRN 30 Days #90 cap 07/22/20 benzonatate 200 mg PO TID 14 Days #84 cap 08/03/20 cane #1 ea 08/03/20 levofloxacin 750 mg PO Q24H 9 Days #9 tab 08/03/20 prednisone 40 mg PO DAILY 14 Days #28 tab 08/03/20 urea (bulk) 15 ea PO DAILY 30 Days g 08/03/20 DS: Summary Hospital Course Hospital Course: admission note HPI A 59 years old male with PMH of COPD, ankylosing spondylitis, bronchitis among others who presented to the hospital with complaints of dyspnea and shortness of breath for the last 2 weeks. The patient reports recurrent episodes of shortness of breath over the last few months which she follows with pulmonology about them with plan for further evaluation as outpatient. He reports over the last 2 weeks he started to have episodes of shortness of breath associated with wheezing. He tried his home medications and nebulizer with no improvement. He he saw his body shop technician at [facility] last week but things did not improve since then on tapering dose of prednisone. In the emergency a chest x-ray was negative for any acute findings. The patient complained of shortness of breath while resting and with ambulation. Oxygen level maintained in 90s. His blood work was significant for hyponatremia as well. Admitted for further evaluation and treatment. Hospital course He was noted to have Acute hyponatremia at time of presentation with sodium around 126. Seems to be multifactorial. Evaluated by Nephrology who recommended water restriction and urea usage. The patient's sodium improved over the hospital stay and improved back to normal 137 at the day of discharge with a plan to be discharged home will need urea and to follow up with Nephrology as outpatient. Patient was admitted mainly for Respiratory distress as a result of ILD exacerbation and Tracheobronchitis. CXR negative for any acute finding. Echo showed mild pulmonary hypertension. CT chest with contrast showing nonspecific changes with no acute findings. Tested negative for respiratory viral panel. Treated mainly with Bronchodilator nebulizers, IV steroids and IV antibiotics with good response over the course of hospital stay as he was weaned off oxygen became able to ambulate with the room with less dyspnea which remains at baseline. Evaluated by pulmonology who recommended using racemic epinephrine ne bulizer with good results. With pulmonology recommendations for discharge home prednisone 60 mg daily and Levaquin for 10-14 days. To follow-up with pulmonology clinic after that. Time Spent with Patient Time attestation: Total time spent providing and/or coordinating discharge services: Discharge coordination time: Greater than 30 minutes Quality: Stroke Does the patient have a stroke diagnosis?: No Physical Exam Vital Signs: Vital Signs: Last Vital Signs Temp 97.3 F 08/03/20 11:43 Pulse 81 08/03/20 11:43 Resp 17 08/03/20 11:43 BP 144/66 H 08/03/20 11:43 Pulse Ox 94 08/03/20 11:43 Oxygen Flow Rate 2 07/29/20 08:50 Body Mass Index 22.4 Const: Other: Constitutional : Alert, oriented, less dyspnea, not in distress Neck : Normal inspection, Supple Cardiovascular : RRR, S1 S2, no lower extremity edema Respiratory : Decreased bilateral air entry, no crackles, bilateral fine scattered wheezes but overall clear Gastrointestinal: soft, lax, Normal bowel sounds, Non tender Skin : Warm/Dry, No rash Neurological : Alert & oriented x3, No focal deficit DS: Data Data Completed and Pending Labs on day of discharge: Laboratory Results - last 24 hr 08/03/20 06:23 Sodium 137 Potassium 5.0 D Chloride 101 Carbon Dioxide 26 Anion Gap 15 BUN 33 H Creatinine 0.69 Estim Creat Clear Calc 129.4 Estimated GFR > 60 Random Glucose 99 Calcium 9.7 Discharge Plan Discharge Patient Disposition: Home Health Service Discharge Diagnosis: ILD exacerbation Laryngotracheitis Hyponatremia Referrals: [facility] [Outside] - 1 Day (discharge plan home with new referral to the [facility] for diagn osis assessment and sign/symptom management , detailplan of whom to call for what and when. medication reconcilation pcp kenan adams patient to call for post hospitakl discharge follow up patient to seelf arrange for a ride home and to pisck up his scripts) Sussy Thurston DO [Primary Care Provider] - 1 Week Discharge Medications: New benzonatate 100 mg Capsule 200 mg PO TID 14 Days Qty: 84 RF: 0 levofloxacin 750 mg Tablet 750 mg PO Q24H 9 Days Qty: 9 RF: 0 (DME) cane Device See Rx Instructions .ROUTE .MEDSUPPLY Qty: 1 RF: 0 prednisone 20 mg tablet 40 mg PO DAILY 14 Days Qty: 28 RF: 0 urea (bulk) 100 % Powder 15 ea PO DAILY 30 Days RF: 0 Continued prednisone 10 mg tablet 30 mg PO DAILY RF: 0 albuterol sulfate 2.5 mg /3 mL (0.083 %) Solution For Nebulization 2.5 mg INHALATION Q4H PRN (Reason: Respiratory Distress) RF: 0 cetirizine 10 mg tablet 10 mg PO DAILY PRN (Reason: Runny Nose) RF: 0 carbamazepine 200 mg tablet 600 mg PO BID RF: 0 omeprazole 20 mg capsule,delayed release(DR/EC) 20 mg PO DAILY@0630 RF: 0 fluticasone propionate [Flonase Allergy Relief] 50 mcg/actuation spray,suspension 2 spray intranasal DAILY RF: 0 simvastatin 20 mg tablet 20 mg PO BEDTIME RF: 0 aspirin 81 mg tablet,delayed release (DR/EC) 81 mg PO DAILY RF: 0 albuterol sulfate 90 mcg/actuation HFA aerosol inhaler 2 puff inhalation Q6H PRN (Reason: Shortness Of Breath) RF: 0 benzonatate [Tessalon Perles] 100 mg capsule 200 mg PO TID PRN (Reason: cough) 30 Days Qty: 90 RF: 0 Discharge Orders: Discharge Order (Routine); Ordered 08/03/20 Ordered By: Pankaj Henriquez Diet: advance to usual diet and other Activity on Discharge: As tolerated Stand Alone Forms: Patient Portal Discharge page Care Plan Goals: Read below Health Concerns: Read below Plan of Treatment: You were admitted to the hospital for difficulty breathing. Treated with steroids, nebulizers and antibiotic with good response. Evaluated by pulmonology who recommended steroids and antibiotic at time of discharge. You were also evaluated by Nephrology for low sodium level. Treated with decreasing water intake and oral urea. To be discharged on urea and to continue restricted fluid intake Assessment: Fluid restriction to 1500 cc daily Prednisone 60 mg daily for the next weeks until you see in the office continue Levaquin as prescribed Continue urea 15 mg daily and to follow-up with snack steward Dr. Fernandez. They will reach out to you for office visit
[2020-08-03 12:42] VITALS: PULSE 84; O2SAT 96
[2020-08-03 13:42] LABS: Anti Nuclear Antibody Pattern Nuclear, Homogeneous; Anti Nuclear Antibody Screen POSITIVE (NEGATIVE)
[2020-08-06 21:57] LABS: Asperg fumigatus Precip Abs NEGATIVE (NEGATIVE); Micropoly faeni Abs NEGATIVE (NEGATIVE); Pigeon serum Abs NEGATIVE (NEGATIVE); Saccharo pora viridis Abs NEGATIVE (NEGATIVE); Thermo candidus Abs NEGATIVE (NEGATIVE); Thermoa vulgaris #1 NEGATIVE (NEGATIVE)
== END 2020-08-03 13:05 | disposition home health service (06) | DRG 140 ==
LOC: HO.ED 07:47 → HO.EDOVER 09:07 → HO.S3 12:44
PROVIDERS: Hospitalist; Admitting Provider Student in an Organized Health Care Education/Training Program; Emergency Provider Student in an Organized Health Care Education/Training Program; PCP Internal Medicine; Visit Provider Student in an Organized Health Care Education/Training Program
DX: J44.1 Chronic obstructive pulmonary disease with (acute) exacerbation (principal); E87.2 Acidosis; E87.1 Hypo-osmolality and hyponatremia; J44.0 Chronic obstructive pulmonary disease with (acute) lower respiratory infection; E78.5 Hyperlipidemia, unspecified; M45.9 Ankylosing spondylitis of unspecified sites in spine; J20.9 Acute bronchitis, unspecified; R06.03 Acute respiratory distress; T42.1X5A Adverse effect of iminostilbenes, initial encounter; Y92.9 Unspecified place or not applicable; Z20.822 Contact with and (suspected) exposure to COVID-19; Z79.51 Long term (current) use of inhaled steroids; Z88.5 Allergy status to narcotic agent; Z79.899 Other long term (current) drug therapy
CPT/HCPCS: 0241U; 11104; 36415; 71045; 71260; 71275; 80048; 80053; 82607; 82746; 82785; 83605; 83735; 83880; 83930; 84145; 84484; 85025; 85027; 85652; 86038; 86039; 86140; 86331; 86606; 86609; 87040; 87071; 87102; 87106; 87107; 87116; 87205; 87389; 87633; 87635; 88112; 88305; 88312; 92610; 93005; 93306; 93971; 94640; 99285; J0692; J1100; J1650; J2250; J2270; J2405; J2920; J2930; J3010; J3475; Q9967

== ENCOUNTER 2020-08-04 12:17 | Inpatient (IN) | payer OTHER, SELFPAY ==
[2020-08-04] VITALS (14 sets, daily range): BP systolic 138–146; BP diastolic 57–76; PULSE 8–100; RESP 16–31; TEMP 36.5–37.2; O2SAT 87–98; BMI 21.5
--- NOTE | ~2020-08-04 | CT_ITS ---
EXAMINATION: CT ANGIOGRAM OF THE CHEST WITH AND WITHOUT CONTRAST (CT PULMONARY ANGIOGRAM FOR PE) CLINICAL INFORMATION: Reason for Exam dyspnea hypoxia COMPARISON: CT chest with contrast 07/30/2020 TECHNIQUE: Prior to contrast administration, noncontrast localization images were obtained. Subsequently, multidetector volumetric imaging was performed from the thoracic inlet to below the diaphragms following the administration of 63 mL Omnipaque 350 intravenous contrast. No contrast reaction reported Sagittal, coronal, and MIP oblique sagittal reformatted images were obtained on the CT workstation, uploaded to PACS, and reviewed. This CT examination was performed using dose optimization techniques as appropriate, variously including the following: *Automated exposure control *Adjustment of mA and/or kV according to patient size (this includes techniques or standardized protocols for targeted exams where dose is matched to indication/reason for exam; i.e. extremities or head) *Use of iterative reconstruction technique Total exam dose-length product 310 mGy-cm FINDINGS: QUALITY OF STUDY/CONTRAST BOLUS: Satisfactory. PULMONARY ARTERIES: No central or segmental pulmonary emboli. THORACIC AORTA: No aneurysm or dissection. LUNG: Multiple bronchi are seen bilaterally which are filled with fluid as well as thickening and. Multiple tree-in-bud opacities are noted throughout the lungs mostly in the lower lobes. These findings are considerably worse than this study on 07/30/2020 5 days ago. Some calcified pulmonary nodules are present. PLEURA: No pleural effusion or pneumothorax. MEDIASTINUM: Normal heart size. No pericardial effusion. No hilar or mediastinal lymphadenopathy. No evidence of septal bowing or right heart strain. CHEST WALL/AXILLA: No axillary or internal mammary lymphadenopathy. OSSEOUS STRUCTURES: No acute or suspicious osseous abnormality. UPPER ABDOMEN: No significant abnormality seen. CT/CT angio chest PE protocol IMPRESSION: 1. No evidence of pulmonary emboli 2. Severe pulmonary inflammatory disease with thickening of bronchi, fluid in bronchi and extensive tree-in-bud changes, significantly worse when compared to the study of 5 days ago. VTE: negative
--- NOTE | ~2020-08-04 | XR_ITS ---
EXAMINATION: XR CHEST CLINICAL INFORMATION: Shortness of breath COMPARISON: Chest 07/30/2020 TECHNIQUE: Frontal view of the chest was obtained. FINDINGS: The lungs are well-expanded and clear of acute process. The heart size and pulmonary vascularity is normal. There is mild spondylosis dorsal spine. No lytic process seen. XR/XR chest 1V IMPRESSION: No acute cardiopulmonary process seen.
--- NOTE | ~2020-08-04 | US_ITS ---
EXAMINATION: US VENOUS ULTRASOUND WITH DOPPLER LOWER EXTREMITY, LEFT CLINICAL INFORMATION: Leg pain. COMPARISON: None TECHNIQUE: Ultrasound of the deep veins is performed from the hip to the calf with compression sonography and color and pulse Doppler assessment. Spectral analysis with color-flow imaging is performed. FINDINGS: There is normal venous compression and respiratory variation and augmented flow. The visualized common femoral vein, superficial femoral vein, profunda femoral vein, popliteal vein, and the trifurcation region shows no evidence of deep venous thrombosis. There is no left popliteal cyst. The subcutaneous soft tissues are unremarkable. If the patient's symptoms persist, followup ultrasound in 5 days 7 days might be of value to exclude proximal propagation from a non-visualized calf vein. US/US venous duplex LE LT IMPRESSION: No evidence for deep venous thrombosis in the visualized veins of the left lower extremity.
--- NOTE | 2020-08-04 12:46 | ED.SOB ---
HPI - SOB/Dyspnea General Chief Complaint: Upper Respiratory Symptoms Stated Complaint: DIFF BREATHING,H/O COPD,SEEN RECENTLY FOR SAME Time Seen by Provider: 08/04/20 12:45 Source: patient Mode of arrival: EMS Limitations: no limitations History of Present Illness HPI Narrative: History obtained by Dr. Chapman and the patient simultaneously. Patient was discharged from the hospital yesteday. 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) Onset (ago): week(s) Timing: constant Severity: severe Related Data Home Medications Medication Instructions Recorded Confirmed albuterol sulfate 90 mcg/actuation 2 puff INHALATION Q6H PRN 03/10/20 08/04/20 aerosol inhaler aspirin 81 mg tablet,delayed 81 mg PO DAILY 03/10/20 08/04/20 release carbamazepine 200 mg tablet 600 mg PO BID 03/10/20 08/04/20 cetirizine 10 mg tablet 10 mg PO DAILY PRN 03/10/20 08/04/20 fluticasone propionate 50 2 spray INTRANASAL DAILY 03/10/20 08/04/20 mcg/actuation nasal spray,suspension omeprazole 20 mg capsule,delayed 20 mg PO DAILY@0630 03/10/20 08/04/20 release simvastatin 20 mg tablet 20 mg PO BEDTIME 03/10/20 08/04/20 albuterol sulfate 2.5 mg INHALATION Q4H PRN 07/29/20 08/04/20 urea 1 packet PO DAILY 08/04/20 08/04/20 Previous Rx's Medication Instructions Recorded benzonatate 200 mg PO TID 14 Days #84 cap 08/03/20 cane #1 ea 08/03/20 levofloxacin 750 mg PO Q24H 9 Days #9 tab 08/03/20 prednisone 40 mg PO DAILY 14 Days #28 tab 08/03/20 Allergies Allergy/AdvReac Type Severity Reaction Status Date / Time acetaminophen [From PERCOCET] Allergy Unknown VOMITING Verified 07/22/20 09:28 codeine [CODEINE] Allergy Unknown VOMITING Verified 07/22/20 09:28 oxycodone [From PERCOCET] Allergy Unknown VOMITING Verified 07/22/20 09:28 Review of Systems Constitutional: Constitutional: Reports no additional constitutional complaints Eyes: Eyes: Reports no additional eye complaints ENT: Denies dizziness Cardiovascular: Cardiovascular: Reports no additional cardiovascular complaints Respiratory: Respiratory: Reports as per HPI Gastrointestinal: Gastrointestinal: Reports no additional gastrointestinal complaints Musculoskeletal: Musculoskeletal: Reports no additional musculoskeletal complaints Integumentary/Breasts: Skin/Breast: Denies rash Neurologic: Reports system reviewed and no additional complaints, except as documented, Denies dizziness and Denies Sensory deficit (Neuro) Psychiatric: Psychiatric: Denies anxiety [facility] Past Medical History Medical History (Updated 08/04/20 @ 16:22 by Renny Oliver MD) Bronchitis COPD (chronic obstructive pulmonary disease) GERD (gastroesophageal reflux disease) Hyperlipidemia Pneumonia Pulmonary nodules Thoracic outlet syndrome Social History Social History Household Members: None Housing: House Do you presently have visiting nurse or other home services: No Alcohol intake: never Patient Tobacco Use Status: Never used Tobacco Advance Directives: Yes Advance Directives on File: Yes Advance Directives Date on File: 07/29/20 service: No Current occupational status: employed Physical Exam Vital Signs: Vital Signs: Last Vital Signs Temp 98.9 F 08/04/20 12:33 Pulse 87 08/04/20 14:23 Resp 22 H 08/04/20 14:23 BP 138/59 L 08/04/20 14:23 Pulse Ox 87 L 08/04/20 15:57 Oxygen Flow Rate 2 08/04/20 13:22 Body Mass Index 21.5 Neuro: Sensory Exam: No Sensory deficit (Neuro) Course Reevaluation(s) Reevaluation #1: patient breathing more comfortably O2 sat 95% on room air Time: 15:09 Reevaluation #2: upon trying to discharge patient his O2 saturation went down to 86% with a lot of anxiety and shortness of breath. Will admit Time: 16:24 MDM - SOB/Dyspnea Lab Data Result diagrams: 08/04/20 13:09 08/04/20 13:09 Labs: Lab Results 08/04/20 08/04/20 08/04/20 Range/Units 13:09 13:09 13:09 WBC 15.3 H (4.8-10.8) X10*3/uL RBC 4.39 L (4.60-5.80) X10*6/uL Hgb 14.6 (14.0-18.0) g/dl Hct 43.2 (42-52) % MCV 98.4 H (80-98) fL MCH 33.3 H (27.0-33.0) pg MCHC 33.8 (31.0-36.0) g/dl RDW 13.1 (11.0-16.0) % Plt Count 250 (160-400) X10*3/uL MPV 8.1 L (9.4-12.4) fL Immature Gran % (Auto) 0.7 H (0.0-0.4) % Neut % (Auto) 87.4 H (45-73) % Lymph % (Auto) 5.0 L (20-40) % [facility] % (Auto) 6.8 (2-11) % Eos % (Auto) 0.0 (0-4) % Baso % (Auto) 0.1 (0-2) % Lymph # (Auto) 0.8 L (1.2-4.9) X10*3/uL [facility] # (Auto) 1.0 (0.1-1.2) X10*3/uL Eos # (Auto) 0.0 (0.0-0.4) X10*3/uL Baso # (Auto) 0.0 (0.0-0.2) X10*3/uL Abs Immat Gran (auto) 0.10 H (0.00-0.03) X10*3/uL Absolute Neuts (auto) 13.4 H (2.0-8.3) X10*3/uL Absolute Nucleated RBC 0.000 (0.0-0.012) X10*3/uL Nucleated RBC % (auto) 0.0 (0.0-0.2) /100WBC Sodium 137 (135-145) mmol/L Potassium 4.8 (3.3-5.1) mmol/L Chloride 99 (96-108) mmol/L Carbon Dioxide 28 (22-29) mmol/L Anion Gap 15 (12-20) BUN 24 H (9-16) mg/dL Creatinine 0.75 (0.5-1.4) mg/dL Estim Creat Clear Calc 114.3 Estimated GFR > 60 Random Glucose 111 (60-115) mg/dL Calcium 9.7 (8.4-10.2) mg/dL Troponin I High Sens 8.0 (<3.5-35.0) ng/L Imaging Data Chest x-ray: Radiologist's impression: IMPRESSION: No acute cardiopulmonary process seen. duplex left leg: Radiologist's impression: IMPRESSION: No evidence for deep venous thrombosis in the visualized veins of the left lower extremity. Discharge Plan Discharge Clinical Impression: Hypoxia Dyspnea Qualifiers: Dyspnea type: shortness of breath Qualified Code(s): R06.02 - Shortness of breath Patient Disposition: Admitted As Inpatient
--- NOTE | 2020-08-04 12:53 | ECG_ITS ---
Test Reason : DYSPNEA Blood Pressure : / mmHG Vent. Rate : 083 BPM Atrial Rate : 083 BPM P-R Int : 152 ms QRS Dur : 084 ms QT Int : 366 ms P-R-T Axes : 070 073 064 degrees QTc Int : 430 ms Normal sinus rhythm Possible Left atrial enlargement Borderline ECG When compared with ECG of 30-JUL-2020 11:14, No significant change was found Referred By: Renny Oliver Electronically Signed By:Hal Coe
[2020-08-04] MEDS: Albuterol/Iprat 2.5/0.5MG 3 ML AMPUL.NEB INHALE ×2 (12:56→20:02)
[2020-08-04] MEDS: methylPREDNISolone Sod Succ 125 MG/2 ML VIAL IVPUSH (13:12)
[2020-08-04 13:14] LABS: MANUAL DIFF FLAG NO
[2020-08-04 13:15] LABS: Basophils Percent Auto 0.1 % (0-2); Hematocrit 43.2 % (42-52); Hemoglobin 14.6 g/dl (14.0-18.0); Imm Gran Pct Auto 0.7 % (0.0-0.4); Lymphocytes Absolute Auto 0.8 X10*3/uL (1.2-4.9); Mean Corpuscular HGB Conc 33.8 g/dl (31.0-36.0); Mean Corpuscular Hemoglobin 33.3 pg (27.0-33.0); Mean Corpuscular Volume 98.4 fL (80-98); Mean Platelet Volume 8.1 fL (9.4-12.4); Monocytes Percent Auto 6.8 % (2-11); Neutrophils Absolute Auto 13.4 X10*3/uL (2.0-8.3); Neutrophils Percent Auto 87.4 % (45-73); Platelet Count 250 X10*3/uL (160-400); Red Blood Count 4.39 X10*6/uL (4.60-5.80); Red Cell Distribution Width 13.1 % (11.0-16.0); White Blood Count 15.3 X10*3/uL (4.8-10.8)
[2020-08-04 13:54] LABS: Anion Gap 15 (12-20); Blood Urea Nitrogen 24 mg/dL (9-16); Calcium 9.7 mg/dL (8.4-10.2); Carbon Dioxide 28 mmol/L (22-29); Chloride 99 mmol/L (96-108); Creatinine Clr Calc Pharmacy 114.3; Estimated Glomerular Filt Rate > 60; Glucose Random 111 mg/dL (60-115); Potassium 4.8 mmol/L (3.3-5.1); Sodium 137 mmol/L (135-145)
--- NOTE | 2020-08-04 16:20 | PC.NURSE ---
PT REMAINS MORE COMFORTABLE IN TRIPOD POSITION. REPORTS SLIGHT IMPROVE IN WORK OF BREATHING, THOUGH REMAINS TACHYPNEIC. COUGHING FITS WITH ANY EXERTION. SPO2 DOWN TO 87% WHEN TRIALED ON RA. AWARE.
--- NOTE | 2020-08-04 16:23 | PHA.MEDREC ---
Pharmacy Consult ? Medication Reconciliation Pharmacy has completed the medication reconciliation.
[2020-08-04] MEDS: Albuterol Sulfate (0.083%) 2.5 MG/3 ML VIAL.NEB INHALE ×2 (16:51→23:40)
--- NOTE | 2020-08-04 17:03 | PM.IMHP ---
History of Present Illness Date of Service: 08/04/20 Chief Complaint: dyspnea This is a 59 year old nonsmoking male with chronic lung disease variously described as COPD, ILD, or organizing pneumonia with onset about 6 months ago, who was recently admitted to this hospital on 07/29/20 and discharged yesterday for exacerbation ot the underlying lung disease. Notably, he is on infliximab for ankyolosing spondylitis. He has had recurrent episodes of dyspnea and cough over the past few months and is seen by [facility]. A contrast CT of the chest on 07/30/20 showed no acute airway disease and a mixture of calcified and noncalcified scattered micronodules. He was treated with steroids and nebulizer treatments for suspected ILD exacerbation and antibiotics for possible tracheobronchitis. CURT was positive at 1:320 in a homogeneous nuclear pattern. He had hyponatremia, which resolved with water restriction and urea. He was discharged home on prednisone 40 mg/d, and levofloxacin 750 mg/d. He returns to the ED today feeling worsening shortness of breath, with cough productive of yellow sputum. He denies fever, chills, or chest pain. Chest radiography showed no acute disease. Oxygen saturation dropped down to 86% on room air and as such, the hospitalist team was called to admit the patient. Review of Systems Review of Systems: Yes all other systems are reviewed and are negative [facility] Medical History Ankylosing spondylitis Bronchitis COPD (chronic obstructive pulmonary disease) GERD (gastroesophageal reflux disease) Hyperlipidemia Pneumonia Pulmonary nodules Thoracic outlet syndrome Pertinent family history: CVA Social History Household Members: None Housing: House Do you presently have visiting nurse or other home services: No Alcohol intake: never Patient Tobacco Use Status: Never used Tobacco Advance Directives: Yes Advance Directives on File: Yes Advance Directives Date on File: 07/29/20 service: No Current occupational status: employed Meds Allergies Allergy/AdvReac Type Severity Reaction Status Date / Time acetaminophen [From PERCOCET] Allergy Unknown VOMITING Verified 07/22/20 09:28 codeine [CODEINE] Allergy Unknown VOMITING Verified 07/22/20 09:28 oxycodone [From PERCOCET] Allergy Unknown VOMITING Verified 07/22/20 09:28 Active Medications: Current Medications Generic Name Dose Route Start Last Admin Trade Name Freq PRN Reason Stop Dose Admin Albuterol Sulfate 2.5 mg 08/04/20 16:27 08/04/20 16:51 Albuterol Sulfate (0.083%) 2.5 Mg/3 Ml Vial.Neb INHALE 2.5 mg Q2H PRN Administration Shortness of Breath/Wheezing Albuterol/Ipratropium 3 ml 08/04/20 20:00 Albuterol/Iprat 2.5/0.5mg 3 Ml Ampul.Neb INHALE RQ4H WHILE AWAKE [facility] Aspirin 81 mg 08/05/20 09:00 Aspirin Enteric Coated 81 Mg Tablet. PO DAILY [facility] Benzonatate 200 mg 08/04/20 21:00 Benzonatate 100 Mg Capsule PO TID [facility] Carbamazepine 600 mg 08/04/20 21:00 Carbamazepine 200 Mg Tablet PO BID [facility] Fluticasone Propionate 2 spray 08/05/20 09:00 Fluticasone Propionate Nasal 16 Gm [place] NOSTRIL-B DAILY [facility] Levofloxacin 750 mg 08/04/20 18:00 Levofloxacin 750 Mg Tablet PO Q24H [facility] Loratadine 10 mg 08/04/20 16:57 Loratadine 10 Mg Tablet PO DAILY PRN Runny Nose Methylprednisolone Sodium Succinate 40 mg 08/04/20 21:00 Methylprednisolone Sod Succ 40 Mg/Ml Vial IVPUSH Q8H [facility] Non-Formulary Medication 20 mg 08/04/20 21:00 Simvastatin PO BEDTIME [facility] Omeprazole 20 mg 08/05/20 06:30 Omeprazole 20 Mg Capsule. PO DAILY@0630 [facility] Pharmacy Consult 1 each 08/04/20 15:56 Consult Rx Perform Med Rec MISCELLANE ONCE PRN Consult order Urea 15 gm 08/05/20 09:00 Urea 15 Gm Powder PO DAILY [facility] Home Medications Medication Instructions Recorded Confirmed Last Taken Type albuterol sulfate 90 mcg/actuation 2 puff INHALATION Q6H PRN 03/10/20 08/04/20 Unknown History aerosol inhaler aspirin 81 mg tablet,delayed 81 mg PO DAILY 03/10/20 08/04/20 07/29/20 History release carbamazepine 200 mg tablet 600 mg PO BID 03/10/20 08/04/20 07/29/20 History cetirizine 10 mg tablet 10 mg PO DAILY PRN 03/10/20 08/04/20 Unknown History fluticasone propionate 50 2 spray INTRANASAL DAILY 03/10/20 08/04/20 Unknown History mcg/actuation nasal spray,suspension omeprazole 20 mg capsule,delayed 20 mg PO DAILY@0630 03/10/20 08/04/20 07/29/20 History release simvastatin 20 mg tablet 20 mg PO BEDTIME 03/10/20 08/04/20 07/28/20 History albuterol sulfate 2.5 mg INHALATION Q4H PRN 07/29/20 08/04/20 Unknown History urea 1 packet PO DAILY 08/04/20 08/04/20 Unknown History Physical Exam Vital Signs and Narrative: Vital Signs: Last Vital Signs Temp 97.7 F 08/04/20 16:36 Pulse 8 L 08/04/20 16:52 Resp 26 H 08/04/20 16:36 BP 144/63 H 08/04/20 16:36 Pulse Ox 94 08/04/20 16:36 Oxygen Flow Rate 2 08/04/20 13:22 Body Mass Index 21.5 Gen: in moderate respiratory distress, thin HEENT: sclera anicteric, moist mucus membranes Neck: supple Lungs: bilateral inspiratory rhonchi, expiratory wheezes Heart: regular rate and rhythm, no murmurs Abd: soft, non-tender, non-distended Ext: no edema, cyanosis, or clubbing Skin: warm/well-perfused Neuro: alert and oriented x3, no focal findings Psych: appropriate affect Results Labs CBC and Chem 7: 08/04/20 13:09 08/04/20 13:09 Labs: Laboratory Results - last 24 hr 08/04/20 08/04/20 08/04/20 13:09 13:09 13:09 MCV 98.4 H MCH 33.3 H MCHC 33.8 RDW 13.1 Plt Count 250 MPV 8.1 L Immature Gran % (Auto) 0.7 H Neut % (Auto) 87.4 H Lymph % (Auto) 5.0 L [place] % (Auto) 6.8 Eos % (Auto) 0.0 Baso % (Auto) 0.1 Lymph # (Auto) 0.8 L [place] # (Auto) 1.0 Eos # (Auto) 0.0 Baso # (Auto) 0.0 Abs Immat Gran (auto) 0.10 H Absolute Neuts (auto) 13.4 H Absolute Nucleated RBC 0.000 Nucleated RBC % (auto) 0.0 Anion Gap 15 Estim Creat Clear Calc 114.3 Estimated GFR > 60 Random Glucose 111 Calcium 9.7 Troponin I High Sens 8.0 Imaging Radiologist's Impressions: Impressions Chest X-Ray 08/04/20 12:51 IMPRESSION: No acute cardiopulmonary process seen. Venous Duplex 08/04/20 12:51 IMPRESSION: No evidence for deep venous thrombosis in the visualized veins of the left lower extremity. Assessment and Plan (1) ILD (interstitial lung disease): Status: Acute 59 year old nonsmoking male with ankylosing spondylitis on treatment with infliximab and approximately 2 years of chronic lung disease variously described as COPD, ILD, or organizing pneumonia, just discharged from this hospital yesterday after being admitted 07/30/20 for exacerbation of his lung disease and presenting with recurrent dyspnea and hypoxia # exacerbation of ILD vs. COPD - High suspicion of rheumatologic lung disease. Consult Pulmonology, consider discussion with Rheumatology [though they do not consult in the hospital]. Will change to IV methylprednisolone 40 mg q8h. Give nebulizer treatments, which the patient states help temporarily. Recheck respiratory virus panel [was negative 07/31/20]. Check CRP, PCT. Send sputum culture. Continue levofloxacin for now. # acute hypoxic respiratory failure - Supplemental O2. Steroids as above. Will also perform CTA to rule out PE. # hyponatremia, history - Resolved; continue urea therapy. # - On infliximab as outpatient- sees Dr Sena at [facility]. # GERD - Continue PPI # VTE ppx - LMWH # code - Full Quality Stroke Does the patient have a stroke diagnosis?: No VTE Prior VTE?: No VTE Risk Level:: Medical - moderate - high VTE Device Contraindication: N/A - Device Ordered VTE Drug Contraindication: N/A - Med Ordered
[2020-08-04 17:08] LABS: Procalcitonin 0.04 ng/mL
[2020-08-04 17:10] LABS: C Reactive Protein 3.81 mg/dL (< or = 0.50)
[2020-08-04 17:49] LABS: Adenovirus PCR Not Detected (Not Detect.); Bordetella parapertussis PCR Not Detected (Not Detect.); Bordetella pertussis PCR Not Detected (Not Detect.); Chlamydia pneumoniae PCR Not Detected (Not Detect.); Coronavirus 229E PCR Not Detected (Not Detect.); Coronavirus HKU1 PCR Not Detected (Not Detect.); Coronavirus NL63 PCR Not Detected (Not Detect.); Coronavirus OC43 PCR Not Detected (Not Detect.); Human metapneumovirus PCR Not Detected (Not Detect.); Influenza A PCR Not Detected (Not Detect.); Influenza B PCR Not Detected (Not Detect.); Mycoplasma pneumoniae PCR Not Detected (Not Detect.); Parainfluenza 1 PCR Not Detected (Not Detect.); Parainfluenza 2 PCR Not Detected (Not Detect.); Parainfluenza 3 PCR Not Detected (Not Detect.); Parainfluenza 4 PCR Not Detected (Not Detect.); RSV PCR Not Detected (Not Detect.); Rhino/Enterovirus PCR Not Detected (Not Detect.); SARS-CoV-2 PCR Not Detected (Not Detect.)
[2020-08-04 18:12] LABS: Influenza A PCR NEGATIVE (Negative); Influenza B PCR NEGATIVE (Negative); Resp Syncy Virus RNA Qual PCR NEGATIVE (Negative); SARS COV2 PCR INHOUSE NEGATIVE (Negative)
[2020-08-04] MEDS: iohexoL 350 MG/ML 100 ML INFUS..BTL IV (18:33)
[2020-08-04] MEDS: Enoxaparin Sodium 40 MG/0.4 ML SYRINGE SUBCUT (18:37)
[2020-08-04] MEDS: levoFLOXacin 750 MG TABLET PO (18:37)
--- NOTE | 2020-08-04 19:12 | MHC.CM.PN ---
CM met with patient. Pt very SOB. CM encouraged limited speaking, just nodding. Encouraged pt to use over-bed table and pillows to position himself as to breath better, opening up chest. Pt agreeable. Pt very SOB in the minimalist of exertion. Did have coughing episode that left him very winded. Cousin with patient. Pt lives alone. Uses a cane. No O2. Was discharged from [facility] yesterday. Today, NA arrived and called ambulance to transport pt to ED secondary to increasing SOB and Dyspnea. HCP is on file. Mike Hammer is the HCP/brother ([phone]). Kareen Harman, cousin, is also contact ([phone]). D/C plan is home with [facility] Pt does not wish to go to [facility]. Transportation by family. CM to follow for d/c needs.
[2020-08-04] MEDS: carBAMazepine 200 MG TABLET 600 MG PO (20:47)
[2020-08-04] MEDS: Benzonatate 100 MG CAPSULE 200 MG PO (20:47)
[2020-08-04] MEDS: methylPREDNISolone Sod Succ 40 MG/ML VIAL IVPUSH (20:47)
[2020-08-04] MEDS: Atorvastatin Calcium 10 MG TABLET PO (20:47)
[2020-08-04] MEDS: 0.9 % Sodium Chloride Flush 3 ML SYRINGE IVFLUSH (23:24)
[2020-08-05] VITALS (10 sets, daily range): BP systolic 115–150; BP diastolic 47–75; PULSE 61–89; RESP 15–20; TEMP 35.7–37.4; O2SAT 95–100
[2020-08-05] MEDS: methylPREDNISolone Sod Succ 40 MG/ML VIAL IVPUSH ×3 (05:15→20:52)
[2020-08-05] MEDS: Omeprazole 20 MG CAPSULE.DR PO (05:15)
[2020-08-05 05:58] LABS: VBG Base Excess 4.8 mmol/L; VBG HCO3 31 mmol/L (22-26); VBG pCO2 56 mmHg; VBG pH 7.35 (7.32-7.43); VBG pO2 32 mmHg
[2020-08-05 05:59] LABS: Hematocrit 40.8 % (42-52); Hemoglobin 13.8 g/dl (14.0-18.0); Mean Corpuscular HGB Conc 33.8 g/dl (31.0-36.0); Mean Corpuscular Hemoglobin 33.7 pg (27.0-33.0); Mean Corpuscular Volume 99.5 fL (80-98); Mean Platelet Volume 8.1 fL (9.4-12.4); Platelet Count 226 X10*3/uL (160-400); Red Cell Distribution Width 12.9 % (11.0-16.0)
[2020-08-05 05:59] LABS: Venous Blood Gas Refer to POC result
[2020-08-05 06:38] LABS: Anion Gap 11 (12-20); Blood Urea Nitrogen 17 mg/dL (9-16); Calcium 9.3 mg/dL (8.4-10.2); Carbon Dioxide 29 mmol/L (22-29); Chloride 100 mmol/L (96-108); Estimated Glomerular Filt Rate > 60; Glucose Random 89 mg/dL (60-115); Potassium 4.7 mmol/L (3.3-5.1); Sodium 135 mmol/L (135-145)
[2020-08-05] MEDS: Albuterol/Iprat 2.5/0.5MG 3 ML AMPUL.NEB INHALE ×4 (07:46→20:43)
[2020-08-05] MEDS: carBAMazepine 200 MG TABLET 600 MG PO ×2 (09:45→20:51)
[2020-08-05] MEDS: Benzonatate 100 MG CAPSULE 200 MG PO ×3 (09:45→20:52)
[2020-08-05] MEDS: Aspirin Enteric Coated 81 MG TABLET.DR PO (09:45)
[2020-08-05] MEDS: 0.9 % Sodium Chloride Flush 3 ML SYRINGE IVFLUSH ×3 (09:45→16:21)
[2020-08-05] MEDS: Urea 15 GM POWDER PO (09:46)
[2020-08-05] MEDS: Fluticasone Propionate Nasal 16 GM SPRAY 2 SPRAY NOSTRIL-B (09:46)
[2020-08-05] MEDS: Acetaminophen 325 MG TABLET 650 MG PO ×2 (09:52→16:54)
--- NOTE | 2020-08-05 10:54 | P.CONPL_ITS ---
History of Present Illness History of Present Illness Consult date: 08/05/20 Requesting physician: Tatiana Encarnacion Reason for consult: dyspnea Chief complaint: DIFF BREATHING,H/O COPD,SEEN RECENTLY FOR SAME Narrative: 59-year-old gentleman, lifetime nonsmoker, with underlying history of ankylosing spondylitis on Remicade, followed on outpatient basis for chronic recurrent organizing pneumonia, chronic productive cough and dyspnea. He has be en recently admitted to [facility] for dyspnea on 07/29/2020 and discharged on 08/03/2020. Patient has been readmitted on 08/04/2020 with worsening dyspnea. His CT angiogram chest was negative for pulmonary emboli/in impacted bronchi. He has been continue it on his regimen of Solu-Medrol and Levaquin. Review of Systems Constitutional: Constitutional: Denies daytime sleepiness, Denies excessive sweating, Denies fatigue, Denies fever(s), Denies lethargy, Denies malaise, Denies night sweats, Denies snoring and Denies weight loss Eyes: Eyes: Denies blurry vision and Denies itchy eyes ENT: Denies nasal congestion, Denies post nasal drip, Denies sinus pain, Denies sinus pressure and Denies other ( Thrush) Cardiovascular: Cardiovascular: Denies chest pain, Denies pedal edema, Reports dyspnea, Denies orthopnea and Denies paroxysmal nocturnal dyspnea Respiratory: Respiratory: Reports cough, Denies hemoptysis, Denies excessive phlegm production, Reports dyspnea, Denies snoring and Denies wheezing Gastrointestinal: Gastrointestinal: Denies abdominal pain and Denies heartburn Musculoskeletal: Musculoskeletal: Denies myalgias, Denies arthralgias and Denies joint swelling Integumentary/Breasts: Skin/Breast: Denies rash Neurologic: Denies memory loss and Denies seizure-like activity Psychiatric: Psychiatric: Denies abnormal sleep pattern, Denies anxiety and Denies memory loss Endocrine: Endocrine: Denies excessive sweating, Denies fatigue and Denies heat intolerance Hematologic/Lymphatic: Hematologic/Lymphatic: Denies easy bruising Allergic/Immunologic: Allergic/Immunologic: Denies itchy eyes, Denies seasonal rhinorrhea and Denies wheezing PMFSH Past Medical History Medical History Ankylosing spondylitis Bronchitis COPD (chronic obstructive pulmonary disease) GERD (gastroesophageal reflux disease) Hyperlipidemia Pneumonia Pulmonary nodules Thoracic outlet syndrome Social History Social History Household Members: None Housing: House Do you presently have visiting nurse or other home services: No Alcohol intake: never Patient Tobacco Use Status: Never used Tobacco Use of substances other than those prescribed or required for medical reasons: No Currently Displaying Signs/Symptoms of Drug Intoxication Withdrawal: No Have you been hit, kicked, punched, or otherwise hurt by someone within the past year? If so, by whom?: No Do you feel safe in your current relationship?: No Current Relationship Is there a partner from a previous relationship who is making you feel unsafe now?: No Are you made to feel afraid or neglected: No Spiritual Healthcare Practices: no Uatsdin Healthcare Practices: no Cultural Healthcare Practices: no Advance Directives: Yes Advance Directives on File: Yes Advance Directives Date on File: 07/29/20 Do you have thoughts of harming others: None Do you have a plan to hurt others: No Plan Recently lost weight without trying: No Poor oral hygiene: No service: No Current occupational status: employed Meds Allergies Allergy/AdvReac Type Severity Reaction Status Date / Time acetaminophen [From PERCOCET] Allergy Unknown VOMITING Verified 07/22/20 09:28 codeine [CODEINE] Allergy Unknown VOMITING Verified 07/22/20 09:28 oxycodone [From PERCOCET] Allergy Unknown VOMITING Verified 07/22/20 09:28 Active Medications: Current Medications Generic Name Dose Route Start Last Admin Trade Name Freq PRN Reason Stop Dose Admin Acetaminophen 650 mg 08/04/20 17:01 08/05/20 09:52 Acetaminophen 325 Mg Tablet PO 650 mg Q6H PRN Administration Pain, Mild (Pain Scale 1-3) Albuterol Sulfate 2.5 mg 08/04/20 16:27 08/04/20 23:40 Albuterol Sulfate (0.083%) 2.5 Mg/3 Ml Vial.Neb INHALE 2.5 mg Q2H PRN Administration Shortness of Breath/Wheezing Albuterol/Ipratropium 3 ml 08/04/20 20:00 08/05/20 07:46 Albuterol/Iprat 2.5/0.5mg 3 Ml Ampul.Neb INHALE 3 ml RQ4H WHILE AWAKE [facility]H Administration Aspirin 81 mg 08/05/20 09:00 08/05/20 09:45 Aspirin Enteric Coated 81 Mg Tablet. PO 81 mg DAILY [facility] Administration Atorvastatin Calcium 10 mg 08/04/20 21:00 08/04/20 20:47 Atorvastatin Calcium 10 Mg Tablet PO 10 mg BEDTIME [facility] Administration Benzonatate 200 mg 08/04/20 21:00 08/05/20 09:45 Benzonatate 100 Mg Capsule PO 200 mg TID [facility] Administration Carbamazepine 600 mg 08/04/20 21:00 08/05/20 09:45 Carbamazepine 200 Mg Tablet PO 600 mg BID [facility] Administration Enoxaparin Sodium 40 mg 08/04/20 18:00 08/04/20 18:37 Enoxaparin Sodium 40 Mg/0.4 Ml Syringe SUBCUT 40 mg Q24H [facility] Administration Fluticasone Propionate 2 spray 08/05/20 09:00 08/05/20 09:46 Fluticasone Propionate Nasal 16 Gm [place] NOSTRIL-B 2 spray DAILY [facility] Administration Levofloxacin 750 mg 08/04/20 18:00 08/04/20 18:37 Levofloxacin 750 Mg Tablet PO 750 mg Q24H [facility] Administration Loratadine 10 mg 08/04/20 16:57 Loratadine 10 Mg Tablet PO DAILY PRN Runny Nose Methylprednisolone Sodium Succinate 40 mg 08/04/20 21:00 08/05/20 05:15 Methylprednisolone Sod Succ 40 Mg/Ml Vial IVPUSH 40 mg Q8H [facility] Administration Omeprazole 20 mg 08/05/20 06:30 08/05/20 05:15 Omeprazole 20 Mg Capsule. PO 20 mg DAILY@0630 [facility] Administration Pharmacy Consult 1 each 08/04/20 15:56 Consult Rx Perform Med Rec MISCELLANE ONCE PRN Consult order Sodium Chloride 3 ml 08/05/20 00:00 08/05/20 09:45 0.9 % Sodium Chloride Flush 3 Ml Syringe IVFLUSH 3 ml QSHIFT [facility] Administration Urea 15 gm 08/05/20 09:00 08/05/20 09:46 Urea 15 Gm Powder PO 15 gm DAILY [facility] Administration Home Medications Medication Instructions Recorded Confirmed Last Taken Type albuterol sulfate 90 mcg/actuation 2 puff INHALATION Q6H PRN 03/10/20 08/04/20 Unknown History aerosol inhaler aspirin 81 mg tablet,delayed 81 mg PO DAILY 03/10/20 08/04/20 07/29/20 History release carbamazepine 200 mg tablet 600 mg PO BID 03/10/20 08/04/20 07/29/20 History cetirizine 10 mg tablet 10 mg PO DAILY PRN 03/10/20 08/04/20 Unknown History fluticasone propionate 50 2 spray INTRANASAL DAILY 03/10/20 08/04/20 Unknown History mcg/actuation nasal spray,suspension omeprazole 20 mg capsule,delayed 20 mg PO DAILY@0630 03/10/20 08/04/20 07/29/20 History release simvastatin 20 mg tablet 20 mg PO BEDTIME 03/10/20 08/04/20 07/28/20 History albuterol sulfate 2.5 mg INHALATION Q4H PRN 07/29/20 08/04/20 Unknown History urea 1 packet PO DAILY 08/04/20 08/04/20 Unknown History Physical Exam Vital Signs: Vital Signs: Last Vital Signs Temp 98.6 F 08/05/20 07:28 Pulse 63 08/05/20 07:50 Resp 20 08/05/20 07:28 BP 130/60 08/05/20 07:28 Pulse Ox 100 08/05/20 07:28 Oxygen Flow Rate 2 08/04/20 13:22 Body Mass Index 21.5 Const: General: no acute distress, alert and awake Eyes: Sclerae: sclerae normal EOM: EOMs intact bilaterally Neck: Neck: Yes no lymphadenopathy, Yes trachea midline and Yes supple Resp: Effort & Inspection: normal respiratory effort and no respiratory distress Auscultation: clear to auscultation bilaterally Cardio: Rate: regular rate Rhythm: regular rhythm Heart sounds: no gallops, no murmurs and no rubs GI: Palpation (GI): Soft to palpation and Other GI palpation findings present ( Nontender) Auscultation: normal bowel sounds Extrem: General: Yes no pedal edema, No clubbing and No cyanosis Results Laboratory Findings CBC and BMP: 08/05/20 05:50 08/05/20 05:50 Abnormal lab findings: Abnormal Labs 08/04/20 08/04/20 08/05/20 13:09 13:09 05:50 WBC 15.3 H 17.0 H RBC 4.39 L 4.10 L Hgb 13.8 L Hct 40.8 L MCV 98.4 H 99.5 H MCH 33.3 H 33.7 H MPV 8.1 L 8.1 L Immature Gran % (Auto) 0.7 H Neut % (Auto) 87.4 H Lymph % (Auto) 5.0 L Lymph # (Auto) 0.8 L Abs Immat Gran (auto) 0.10 H Absolute Neuts (auto) 13.4 H VBG HCO3 Anion Gap BUN 24 H C-Reactive Protein 3.81 H 08/05/20 08/05/20 05:50 05:51 WBC RBC Hgb Hct MCV MCH MPV Immature Gran % (Auto) Neut % (Auto) Lymph % (Auto) Lymph # (Auto) Abs Immat Gran (auto) Absolute Neuts (auto) VBG HCO3 31 H Anion Gap 11 L BUN 17 H C-Reactive Protein Assessment and Plan (1) Organizing pneumonia: Status: Acute Impression: 59-year-old gentleman with known underlying recurrent organizing pneumonia on the background of ankylosing spondylitis treated with Remicade with intermittent exacerbations. Now with an acute exacerbation. Recommendation: Continue on Levaquin and Solu-Medrol. Will plan for bronchoscopy with bronchoalveolar lavage in a.m.. NPO at midnight. (2) Dyspnea on exertion: Status: Acute Procedures Date of Service Date of Service: 08/05/20
--- NOTE | 2020-08-05 11:26 | MHC.SL.SWA ---
Speech Pathologist Impression: Within Functional Limits Risk of Aspiration Due to: History of Pneumonia Dysphasia Diet Status: No Change Liquid Consistency and Strategies for Safe Swallow: Liquid Intake Recommendation: Thin Liquid Intake Strategies: Small Sips Solid Food Consistency: Dietary Recommendations: Regular Oral Medication Intake: Whole with Liquid Compensatory Strategies and Precautions to be Taken for Safe Swallow: Sitting Upright (90 deg) Small Bites and Sips Alternate Liquids/Solids Rate of Ingestion Change Supervision While Eating and Drinking for Safe Swallow: Intermittent Supervision Recommendation for Speech: NA:Typical Evaluation Comment: Patient passed bedside dysphagia evaluation. No overt s/s of aspiration. TRY OUT PERSON will follow up 1x time with RN to ensure tolerance. Rubber Molder Clinican/Clinical Fellow: No Supervisory Statement: I have reviewed and agree with the student/clinical fellow's documentation: N/A Speech Language Pathologist: Saskia Devlin M.A., [facility]-TRY OUT PERSON
--- NOTE | 2020-08-05 12:54 | HO.PM.IMPN ---
Subjective Subjective Date of Service: 08/05/20 Interval History: Breathing much improved today, able to speak in complete sentences at rest. Exertion, however, causes rapid deterioration in his breathing effort. Physical Exam Vital Signs: Vital Signs: Last Vital Signs Temp 99.3 F 08/05/20 11:14 Pulse 75 08/05/20 11:31 Resp 20 08/05/20 11:14 BP 142/65 H 08/05/20 11:14 Pulse Ox 95 08/05/20 11:14 Oxygen Flow Rate 2 08/04/20 13:22 Body Mass Index 21.5 Gen: in no acute distress at rest HEENT: sclera anicteric, moist mucus membranes Neck: supple Lungs: clear to auscultation bilaterally [a remarkable improvement from yesterday evening] Heart: regular rate and rhythm, no murmurs Abd: soft, non-tender, non-distended Ext: no edema Skin: warm/well-perfused Neuro: alert and oriented x3, no focal findings Psych: appropriate affect Objective Data Current Medications Generic Name Dose Route Start Last Admin Trade Name Sisi PRN Reason Stop Dose Admin Acetaminophen 650 mg 08/04/20 17:01 08/05/20 09:52 Acetaminophen 325 Mg Tablet PO 650 mg Q6H PRN Administration Pain, Mild (Pain Scale 1-3) Albuterol Sulfate 2.5 mg 08/04/20 16:27 08/04/20 23:40 Albuterol Sulfate (0.083%) 2.5 Mg/3 Ml Vial.Neb INHALE 2.5 mg Q2H PRN Administration Shortness of Breath/Wheezing Albuterol/Ipratropium 3 ml 08/04/20 20:00 08/05/20 11:31 Albuterol/Iprat 2.5/0.5mg 3 Ml Ampul.Neb INHALE 3 ml RQ4H WHILE AWAKE KAVEH Administration Aspirin 81 mg 08/05/20 09:00 08/05/20 09:45 Aspirin Enteric Coated 81 Mg Tablet. PO 81 mg DAILY KAVEH Administration Atorvastatin Calcium 10 mg 08/04/20 21:00 08/04/20 20:47 Atorvastatin Calcium 10 Mg Tablet PO 10 mg BEDTIME KAVEH Administration Benzonatate 200 mg 08/04/20 21:00 08/05/20 09:45 Benzonatate 100 Mg Capsule PO 200 mg TID KAVEH Administration Carbamazepine 600 mg 08/04/20 21:00 08/05/20 09:45 Carbamazepine 200 Mg Tablet PO 600 mg BID KAVEH Administration Enoxaparin Sodium 40 mg 08/04/20 18:00 08/04/20 18:37 Enoxaparin Sodium 40 Mg/0.4 Ml Syringe SUBCUT 40 mg Q24H KAVEH Administration Fluticasone Propionate 2 spray 08/05/20 09:00 08/05/20 09:46 Fluticasone Propionate Nasal 16 Gm [place] NOSTRIL-B 2 spray DAILY KAVEH Administration Levofloxacin 750 mg 08/04/20 18:00 08/04/20 18:37 Levofloxacin 750 Mg Tablet PO 750 mg Q24H KAVEH Administration Loratadine 10 mg 08/04/20 16:57 Loratadine 10 Mg Tablet PO DAILY PRN Runny Nose Methylprednisolone Sodium Succinate 40 mg 08/04/20 21:00 08/05/20 05:15 Methylprednisolone Sod Succ 40 Mg/Ml Vial IVPUSH 40 mg Q8H KAVEH Administration Omeprazole 20 mg 08/05/20 06:30 08/05/20 05:15 Omeprazole 20 Mg Capsule. PO 20 mg DAILY@0630 [facility] Administration Pharmacy Consult 1 each 08/04/20 15:56 Consult Rx Perform Med Rec MISCELLANE ONCE PRN Consult order Sodium Chloride 3 ml 08/05/20 00:00 08/05/20 09:45 0.9 % Sodium Chloride Flush 3 Ml Syringe IVFLUSH 3 ml QSHIFT [facility] Administration Urea 15 gm 08/05/20 09:00 08/05/20 09:46 Urea 15 Gm Powder PO 15 gm DAILY KAVEH Administration Labs CBC & Chem 7: 08/05/20 05:50 08/05/20 05:50 Labs: Laboratory Results - last 24 hr 08/04/20 08/04/20 08/04/20 13:09 13:09 13:09 WBC 15.3 H RBC 4.39 L Hgb 14.6 Hct 43.2 MCV 98.4 H MCH 33.3 H MCHC 33.8 RDW 13.1 Plt Count 250 MPV 8.1 L Immature Gran % (Auto) 0.7 H Neut % (Auto) 87.4 H Lymph % (Auto) 5.0 L [place] % (Auto) 6.8 Eos % (Auto) 0.0 Baso % (Auto) 0.1 Lymph # (Auto) 0.8 L [place] # (Auto) 1.0 Eos # (Auto) 0.0 Baso # (Auto) 0.0 Abs Immat Gran (auto) 0.10 H Absolute Neuts (auto) 13.4 H Absolute Nucleated RBC 0.000 Nucleated RBC % (auto) 0.0 VBG pH VBG pCO2 VBG pO2 VBG HCO3 VBG O2 Saturation VBG Base Excess Sodium 137 Potassium 4.8 Chloride 99 Carbon Dioxide 28 Anion Gap 15 BUN 24 H Creatinine 0.75 Estim Creat Clear Calc 114.3 Estimated GFR > 60 Random Glucose 111 Calcium 9.7 Troponin I High Sens 8.0 C-Reactive Protein 3.81 H Procalcitonin Respiratory Panel [place] Adenovirus (Rapid PCR) B.pert (TEM-PCR) B.parapertussis DNA PCR C. pneumoniae DNA (PCR) Coronavirus (PCR) Coronavirus OC43 (PCR) Coronavirus HKU1 (PCR) Coronavirus 229E (PCR) Coronavirus NL63 (PCR) Human Metapneumovir PCR Influenza A (RT-PCR) Influenza Type A (PCR) Influenza B (RT-PCR) Influenza Type B (PCR) M. pneumoniae (PCR) Parainfluenza 1 (PCR) Parainfluenza 2 (PCR) Parainfluenza 3 (PCR) Parainfluenza 4 (PCR) RSV (PCR) RSV RNA Qual (PCR) Entero/Rhino (PCR) SARS-CoV-2 RNA (RT-PCR) 08/04/20 08/04/20 08/04/20 13:09 17:24 17:24 WBC RBC Hgb Hct MCV MCH MCHC RDW Plt Count MPV Immature Gran % (Auto) Neut % (Auto) Lymph % (Auto) [place] % (Auto) Eos % (Auto) Baso % (Auto) Lymph # (Auto) [place] # (Auto) Eos # (Auto) Baso # (Auto) Abs Immat Gran (auto) Absolute Neuts (auto) Absolute Nucleated RBC Nucleated RBC % (auto) VBG pH VBG pCO2 VBG pO2 VBG HCO3 VBG O2 Saturation VBG Base Excess Sodium Potassium Chloride Carbon Dioxide Anion Gap BUN Creatinine Estim Creat Clear Calc Estimated GFR Random Glucose Calcium Troponin I High Sens C-Reactive Protein Procalcitonin 0.04 Respiratory Panel [place] See Note Adenovirus (Rapid PCR) Not Detected B.pert (TEM-PCR) Not Detected B.parapertussis DNA PCR Not Detected C. pneumoniae DNA (PCR) Not Detected Coronavirus (PCR) NEGATIVE Coronavirus OC43 (PCR) Not Detected Coronavirus HKU1 (PCR) Not Detected Coronavirus 229E (PCR) Not Detected Coronavirus NL63 (PCR) Not Detected Human Metapneumovir PCR Not Detected Influenza A (RT-PCR) Not Detected Influenza Type A (PCR) NEGATIVE Influenza B (RT-PCR) Not Detected Influenza Type B (PCR) NEGATIVE M. pneumoniae (PCR) Not Detected Parainfluenza 1 (PCR) Not Detected Parainfluenza 2 (PCR) Not Detected Parainfluenza 3 (PCR) Not Detected Parainfluenza 4 (PCR) Not Detected RSV (PCR) Not Detected RSV RNA Qual (PCR) NEGATIVE Entero/Rhino (PCR) Not Detected SARS-CoV-2 RNA (RT-PCR) Not Detected 08/05/20 08/05/20 08/05/20 05:50 05:50 05:51 WBC 17.0 H RBC 4.10 L Hgb 13.8 L Hct 40.8 L MCV 99.5 H MCH 33.7 H MCHC 33.8 RDW 12.9 Plt Count 226 MPV 8.1 L Immature Gran % (Auto) Neut % (Auto) Lymph % (Auto) [place] % (Auto) Eos % (Auto) Baso % (Auto) Lymph # (Auto) [place] # (Auto) Eos # (Auto) Baso # (Auto) Abs Immat Gran (auto) Absolute Neuts (auto) Absolute Nucleated RBC 0.000 Nucleated RBC % (auto) 0.0 VBG pH 7.35 VBG pCO2 56 VBG pO2 32 VBG HCO3 31 H VBG O2 Saturation 45.0 VBG Base Excess 4.8 Sodium 135 Potassium 4.7 Chloride 100 Carbon Dioxide 29 Anion Gap 11 L BUN 17 H Creatinine 0.68 Estim Creat Clear Calc 126.0 Estimated GFR > 60 Random Glucose 89 Calcium 9.3 Troponin I High Sens C-Reactive Protein Procalcitonin Respiratory Panel [place] Adenovirus (Rapid PCR) B.pert (TEM-PCR) B.parapertussis DNA PCR C. pneumoniae DNA (PCR) Coronavirus (PCR) Coronavirus OC43 (PCR) Coronavirus HKU1 (PCR) Coronavirus 229E (PCR) Coronavirus NL63 (PCR) Human Metapneumovir PCR Influenza A (RT-PCR) Influenza Type A (PCR) Influenza B (RT-PCR) Influenza Type B (PCR) M. pneumoniae (PCR) Parainfluenza 1 (PCR) Parainfluenza 2 (PCR) Parainfluenza 3 (PCR) Parainfluenza 4 (PCR) RSV (PCR) RSV RNA Qual (PCR) Entero/Rhino (PCR) SARS-CoV-2 RNA (RT-PCR) ITS Impressions Chest X-Ray 08/04/20 12:51 IMPRESSION: No acute cardiopulmonary process seen. Venous Duplex 08/04/20 12:51 IMPRESSION: No evidence for deep venous thrombosis in the visualized veins of the left lower extremity. Chest CTA 08/04/20 18:18 IMPRESSION: 1. No evidence of pulmonary emboli 2. Severe pulmonary inflammatory disease with thickening of bronchi, fluid in bronchi and extensive tree-in-bud changes, significantly worse when compared to the study of 5 days ago. VTE: negative Quality Stroke Does the patient have a stroke diagnosis?: No VTE Prior VTE?: No VTE Risk Level:: Medical - moderate - high VTE Device Contraindication: N/A - Device Ordered VTE Drug Contraindication: N/A - Med Ordered Assessment and Plan (1) Dyspnea on exertion: Status: Acute (2) COPD exacerbation: Status: Inactive (3) Acute hyponatremia: Status: Acute (4) Lactic acid acidosis: Status: Acute Assessment and Plan: 59 year old nonsmoking male with ankylosing spondylitis on treatment with infliximab and approximately 2 years of chronic lung disease variously described as COPD, ILD, or organizing pneumonia, just discharged from this hospital yesterday after being admitted 07/30/20 for exacerbation of his lung disease and presenting with recurrent dyspnea and hypoxia # exacerbation of ILD vs. 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 Continue IV methylprednisolone, PO levofloxacin, nebulizer treatments. notably, pt is on infliximab for and has a positive CURT titer at 1:320 in a homogenous nuclear pattern # acute hypoxic respiratory failure - wean O2 as tolerated # hyponatremia, history - resolved; continue urea therapy started on prior admission # - on infliximab as outpatient- sees Dr Sena at [facility] # thoracic outlet syndrome - continue carbamazepine # GERD - continue PPI # VTE ppx - LMWH
[2020-08-05] MEDS: Enoxaparin Sodium 40 MG/0.4 ML SYRINGE SUBCUT (16:21)
[2020-08-05] MEDS: levoFLOXacin 750 MG TABLET PO (16:21)
[2020-08-05] MEDS: Atorvastatin Calcium 10 MG TABLET PO (20:52)
[2020-08-06] VITALS (18 sets, daily range): BP systolic 114–145; BP diastolic 55–80; PULSE 59–93; RESP 16–24; TEMP 35.9–37.2; O2SAT 91–100
[2020-08-06] MEDS: Acetaminophen 325 MG TABLET 650 MG PO (03:11)
[2020-08-06] MEDS: Albuterol Sulfate (0.083%) 2.5 MG/3 ML VIAL.NEB INHALE (03:11)
[2020-08-06] MEDS: methylPREDNISolone Sod Succ 40 MG/ML VIAL IVPUSH ×3 (05:51→20:42)
[2020-08-06 06:28] LABS: Hematocrit 37.3 % (42-52); Hemoglobin 12.4 g/dl (14.0-18.0); Mean Corpuscular HGB Conc 33.2 g/dl (31.0-36.0); Mean Corpuscular Hemoglobin 32.6 pg (27.0-33.0); Mean Corpuscular Volume 98.2 fL (80-98); Mean Platelet Volume 8.2 fL (9.4-12.4); Platelet Count 212 X10*3/uL (160-400); Red Cell Distribution Width 12.6 % (11.0-16.0); White Blood Count 13.2 X10*3/uL (4.8-10.8)
[2020-08-06 07:27] LABS: Anion Gap 10 (12-20); Blood Urea Nitrogen 19 mg/dL (9-16); C Reactive Protein 6.57 mg/dL (< or = 0.50); Carbon Dioxide 30 mmol/L (22-29); Chloride 98 mmol/L (96-108); Estimated Glomerular Filt Rate > 60; Glucose Random 108 mg/dL (60-115); Potassium 4.4 mmol/L (3.3-5.1); Sodium 134 mmol/L (135-145)
[2020-08-06] MEDS: Albuterol/Iprat 2.5/0.5MG 3 ML AMPUL.NEB INHALE ×4 (07:41→20:12)
[2020-08-06 07:51] LABS: Procalcitonin 0.03 ng/mL
[2020-08-06 08:08] LABS: HIV AB/AG Nonreactive (Nonreactive); HIV Num 1 0.04 S/CO (0.00-0.99)
--- NOTE | 2020-08-06 08:17 | MHC.SHP ---
Pre-Procedural Eval Section A Date of Service: 08/06/20 The patient is an INPATIENT: Yes Changes since office visit: Yes Patient answered all questions; No Cold of Flu in the past 2 weeks, No New Medical Problems and No Changes in Medication The History & Physical has been completed within 30 days and I have reviewed it.: Yes Section B Chief Complaint: DIFF BREATHING,H/O COPD,SEEN RECENTLY FOR SAME Allergies: Allergies Allergy/AdvReac Type Severity Reaction Status Date / Time acetaminophen [From PERCOCET] Allergy Unknown VOMITING Verified 07/22/20 09:28 codeine [CODEINE] Allergy Unknown VOMITING Verified 07/22/20 09:28 oxycodone [From PERCOCET] Allergy Unknown VOMITING Verified 07/22/20 09:28 Plan I have reviewed the history and physical and performed a pertinent physical examination on my patient. No changes have occurred unless specified.
--- NOTE | 2020-08-06 08:59 | PC.NURSE ---
holding morning meds until after 9 AM bronchoscopy per MD.
--- NOTE | 2020-08-06 10:03 | HO.ANESPROP2 ---
HPI - Anesthesia Eval Consult details Narrative: 59 year old male patient for fiberoptic bronchoscopy [facility] Active Problems Active Problems: All Active Problems (Updated 08/04/20 @ 17:17 by Tatiana Encarnacion MD) ILD (interstitial lung disease) (Acute) Ankylosing spondylitis (Acute) COVID-19 (Acute) Dyspnea on exertion (Acute) Organizing pneumonia (Acute) Chronic cough (Acute) Dyspnea (Acute) Ankylosing spondylitis (Acute) Acute hyponatremia (Acute) Lactic acid acidosis (Acute) Tracheobronchitis (Acute) Laryngotracheitis acute, with obstruction (Acute) Hypoxia (Acute) Bronchitis (Acute) Past Medical History Medical History (Updated 08/06/20 @ 10:39 by Tatiana Lawrence) Ankylosing spondylitis Bronchitis COPD (chronic obstructive pulmonary disease) COVID-19 vaccine series completed GERD (gastroesophageal reflux disease) Hyperlipidemia Pneumonia Pulmonary nodules Thoracic outlet syndrome Family History Family history of problems with anesthesia: No Surgical History History of Problems with Anesthesia: No Social History Social History Household Members: None Housing: House Do you presently have visiting nurse or other home services: No Alcohol intake: never Patient Tobacco Use Status: Never used Tobacco Use of substances other than those prescribed or required for medical reasons: No Substance Use Type Other:: Documented ETOH and IV drug use in past in records but patient has denied Currently Displaying Signs/Symptoms of Drug Intoxication Withdrawal: No Have you been hit, kicked, punched, or otherwise hurt by someone within the past year? If so, by whom?: No Do you feel safe in your current relationship?: No Current Relationship Is there a partner from a previous relationship who is making you feel unsafe now?: No Are you made to feel afraid or neglected: No Spiritual Healthcare Practices: no Taoism Healthcare Practices: no Cultural Healthcare Practices: no Are you DNR?: No Advance Directives: Yes Advance Directives on File: Yes Advance Directives Date on File: 07/29/20 Do you have thoughts of harming others: None Do you have a plan to hurt others: No Plan Recently lost weight without trying: No Poor oral hygiene: No service: No Current occupational status: employed Meds Allergies Allergy/AdvReac Type Severity Reaction Status Date / Time acetaminophen [From PERCOCET] Allergy Unknown VOMITING Verified 07/22/20 09:28 codeine [CODEINE] Allergy Unknown VOMITING Verified 07/22/20 09:28 oxycodone [From PERCOCET] Allergy Unknown VOMITING Verified 07/22/20 09:28 Active Medications: Current Medications Generic Name Dose Route Start Last Admin Trade Name Chadwickq PRN Reason Stop Dose Admin Acetaminophen 650 mg 08/04/20 17:01 08/06/20 03:11 Acetaminophen 325 Mg Tablet PO 650 mg Q6H PRN Administration Pain, Mild (Pain Scale 1-3) Albuterol Sulfate 2.5 mg 08/04/20 16:27 08/06/20 03:11 Albuterol Sulfate (0.083%) 2.5 Mg/3 Ml Vial.Neb INHALE 2.5 mg Q2H PRN Administration Shortness of Breath/Wheezing Albuterol/Ipratropium 3 ml 08/04/20 20:00 08/06/20 07:41 Albuterol/Iprat 2.5/0.5mg 3 Ml Ampul.Neb INHALE 3 ml RQ4H WHILE AWAKE KAVEH Administration Aspirin 81 mg 08/05/20 09:00 08/05/20 09:45 Aspirin Enteric Coated 81 Mg Tablet. PO 81 mg DAILY KAVEH Administration Atorvastatin Calcium 10 mg 08/04/20 21:00 08/05/20 20:52 Atorvastatin Calcium 10 Mg Tablet PO 10 mg BEDTIME KAVEH Administration Benzonatate 200 mg 08/04/20 21:00 08/05/20 20:52 Benzonatate 100 Mg Capsule PO 200 mg TID KAVEH Administration Carbamazepine 600 mg 08/04/20 21:00 08/05/20 20:51 Carbamazepine 200 Mg Tablet PO 600 mg BID KAVEH Administration Enoxaparin Sodium 40 mg 08/04/20 18:00 08/05/20 16:21 Enoxaparin Sodium 40 Mg/0.4 Ml Syringe SUBCUT 40 mg Q24H KAVEH Administration Fluticasone Propionate 2 spray 08/05/20 09:00 08/05/20 09:46 Fluticasone Propionate Nasal 16 Gm [place] NOSTRIL-B 2 spray DAILY KAVEH Administration Lactated Ringer's 1,000 mls @ 100 mls/hr 08/06/20 08:45 Lr IVCONT .Q10H KAVEH Levofloxacin 750 mg 08/04/20 18:00 08/05/20 16:21 Levofloxacin 750 Mg Tablet PO 750 mg Q24H KAVEH Administration Loratadine 10 mg 08/04/20 16:57 Loratadine 10 Mg Tablet PO DAILY PRN Runny Nose Methylprednisolone Sodium Succinate 40 mg 08/04/20 21:00 08/06/20 05:51 Methylprednisolone Sod Succ 40 Mg/Ml Vial IVPUSH 40 mg Q8H KAVEH Administration Omeprazole 20 mg 08/05/20 06:30 08/06/20 05:52 Omeprazole 20 Mg Capsule. PO Not Given DAILY@0630 [facility] Pharmacy Consult 1 each 08/04/20 15:56 Consult Rx Perform Med Rec MISCELLANE ONCE PRN Consult order Sodium Chloride 3 ml 08/05/20 00:00 08/05/20 16:21 0.9 % Sodium Chloride Flush 3 Ml Syringe IVFLUSH 3 ml QSHIFT [facility] Administration Urea 15 gm 08/05/20 09:00 08/05/20 09:46 Urea 15 Gm Powder PO 15 gm DAILY KAVEH Administration Home Medications Medication Instructions Recorded Confirmed Last Taken Type albuterol sulfate 90 mcg/actuation 2 puff INHALATION Q6H PRN 03/10/20 08/04/20 Unknown History aerosol inhaler aspirin 81 mg tablet,delayed 81 mg PO DAILY 03/10/20 08/04/20 07/29/20 History release carbamazepine 200 mg tablet 600 mg PO BID 03/10/20 08/04/20 07/29/20 History cetirizine 10 mg tablet 10 mg PO DAILY PRN 03/10/20 08/04/20 Unknown History fluticasone propionate 50 2 spray INTRANASAL DAILY 03/10/20 08/04/20 Unknown History mcg/actuation nasal spray,suspension omeprazole 20 mg capsule,delayed 20 mg PO DAILY@0630 03/10/20 08/04/20 07/29/20 History release simvastatin 20 mg tablet 20 mg PO BEDTIME 03/10/20 08/04/20 07/28/20 History albuterol sulfate 2.5 mg INHALATION Q4H PRN 07/29/20 08/04/20 Unknown History urea 1 packet PO DAILY 08/04/20 08/04/20 Unknown History Exam Exam Date and Time: August 06, 2020 1003 Height,Weight and Vital Signs: Height 6 ft 2 in Weight 76.204 kg Last Vital Signs Temp 98.5 F 08/06/20 09:23 Pulse 61 08/06/20 09:23 Resp 24 H 08/06/20 09:23 BP 119/79 08/06/20 09:23 Pulse Ox 100 08/06/20 09:23 Oxygen Flow Rate 2 08/04/20 13:22 Pertinent Lab Results Pertinent Lab Results: Lab Results 08/04/20 08/04/20 08/04/20 Range/Units 13:09 13:09 13:09 WBC 15.3 H (4.8-10.8) X10*3/uL RBC 4.39 L (4.60-5.80) X10*6/uL Hgb 14.6 (14.0-18.0) g/dl Hct 43.2 (42-52) % MCV 98.4 H (80-98) fL MCH 33.3 H (27.0-33.0) pg MCHC 33.8 (31.0-36.0) g/dl RDW 13.1 (11.0-16.0) % Plt Count 250 (160-400) X10*3/uL MPV 8.1 L (9.4-12.4) fL Immature Gran % (Auto) 0.7 H (0.0-0.4) % Neut % (Auto) 87.4 H (45-73) % Lymph % (Auto) 5.0 L (20-40) % [place] % (Auto) 6.8 (2-11) % Eos % (Auto) 0.0 (0-4) % Baso % (Auto) 0.1 (0-2) % Lymph # (Auto) 0.8 L (1.2-4.9) X10*3/uL [place] # (Auto) 1.0 (0.1-1.2) X10*3/uL Eos # (Auto) 0.0 (0.0-0.4) X10*3/uL Baso # (Auto) 0.0 (0.0-0.2) X10*3/uL Abs Immat Gran (auto) 0.10 H (0.00-0.03) X10*3/uL Absolute Neuts (auto) 13.4 H (2.0-8.3) X10*3/uL Absolute Nucleated RBC 0.000 (0.0-0.012) X10*3/uL Nucleated RBC % (auto) 0.0 (0.0-0.2) /100WBC VBG pH (7.32-7.43) VBG pCO2 mmHg VBG pO2 mmHg VBG HCO3 (22-26) mmol/L VBG O2 Saturation % VBG Base Excess mmol/L Sodium 137 (135-145) mmol/L Potassium 4.8 (3.3-5.1) mmol/L Chloride 99 (96-108) mmol/L Carbon Dioxide 28 (22-29) mmol/L Anion Gap 15 (12-20) BUN 24 H (9-16) mg/dL Creatinine 0.75 (0.5-1.4) mg/dL Estim Creat Clear Calc 114.3 Estimated GFR > 60 Random Glucose 111 (60-115) mg/dL Calcium 9.7 (8.4-10.2) mg/dL Troponin I High Sens 8.0 (<3.5-35.0) ng/L C-Reactive Protein 3.81 H (< or = 0.50) mg/dL Procalcitonin ng/mL Respiratory Panel Rasmussen Adenovirus (Rapid PCR) (Not Detect.) B.pert (TEM-PCR) (Not Detect.) B.parapertussis DNA PCR (Not Detect.) C. pneumoniae DNA (PCR) (Not Detect.) Coronavirus (PCR) (Negative) Coronavirus OC43 (PCR) (Not Detect.) Coronavirus HKU1 (PCR) (Not Detect.) Coronavirus 229E (PCR) (Not Detect.) Coronavirus NL63 (PCR) (Not Detect.) HIV 1&2 Ab/P24 Ag 4thGn (Nonreactive) Human Metapneumovir PCR (Not Detect.) Influenza A (RT-PCR) (Not Detect.) Influenza Type A (PCR) (Negative) Influenza B (RT-PCR) (Not Detect.) Influenza Type B (PCR) (Negative) M. pneumoniae (PCR) (Not Detect.) Parainfluenza 1 (PCR) (Not Detect.) Parainfluenza 2 (PCR) (Not Detect.) Parainfluenza 3 (PCR) (Not Detect.) Parainfluenza 4 (PCR) (Not Detect.) RSV (PCR) (Not Detect.) RSV RNA Qual (PCR) (Negative) Entero/Rhino (PCR) (Not Detect.) SARS-CoV-2 RNA (RT-PCR) (Not Detect.) 08/04/20 08/04/20 08/04/20 Range/Units 13:09 17:24 17:24 WBC (4.8-10.8) X10*3/uL RBC (4.60-5.80) X10*6/uL Hgb (14.0-18.0) g/dl Hct (42-52) % MCV (80-98) fL MCH (27.0-33.0) pg MCHC (31.0-36.0) g/dl RDW (11.0-16.0) % Plt Count (160-400) X10*3/uL MPV (9.4-12.4) fL Immature Gran % (Auto) (0.0-0.4) % Neut % (Auto) (45-73) % Lymph % (Auto) (20-40) % [place] % (Auto) (2-11) % Eos % (Auto) (0-4) % Baso % (Auto) (0-2) % Lymph # (Auto) (1.2-4.9) X10*3/uL [place] # (Auto) (0.1-1.2) X10*3/uL Eos # (Auto) (0.0-0.4) X10*3/uL Baso # (Auto) (0.0-0.2) X10*3/uL Abs Immat Gran (auto) (0.00-0.03) X10*3/uL Absolute Neuts (auto) (2.0-8.3) X10*3/uL Absolute Nucleated RBC (0.0-0.012) X10*3/uL Nucleated RBC % (auto) (0.0-0.2) /100WBC VBG pH (7.32-7.43) VBG pCO2 mmHg VBG pO2 mmHg VBG HCO3 (22-26) mmol/L VBG O2 Saturation % VBG Base Excess mmol/L Sodium (135-145) mmol/L Potassium (3.3-5.1) mmol/L Chloride (96-108) mmol/L Carbon Dioxide (22-29) mmol/L Anion Gap (12-20) BUN (9-16) mg/dL Creatinine (0.5-1.4) mg/dL Estim Creat Clear Calc Estimated GFR Random Glucose (60-115) mg/dL Calcium (8.4-10.2) mg/dL Troponin I High Sens (<3.5-35.0) ng/L C-Reactive Protein (< or = 0.50) mg/dL Procalcitonin 0.04 ng/mL Respiratory Panel Rasmussen See Note Adenovirus (Rapid PCR) Not Detected (Not Detect.) B.pert (TEM-PCR) Not Detected (Not Detect.) B.parapertussis DNA PCR Not Detected (Not Detect.) C. pneumoniae DNA (PCR) Not Detected (Not Detect.) Coronavirus (PCR) NEGATIVE (Negative) Coronavirus OC43 (PCR) Not Detected (Not Detect.) Coronavirus HKU1 (PCR) Not Detected (Not Detect.) Coronavirus 229E (PCR) Not Detected (Not Detect.) Coronavirus NL63 (PCR) Not Detected (Not Detect.) HIV 1&2 Ab/P24 Ag 4thGn (Nonreactive) Human Metapneumovir PCR Not Detected (Not Detect.) Influenza A (RT-PCR) Not Detected (Not Detect.) Influenza Type A (PCR) NEGATIVE (Negative) Influenza B (RT-PCR) Not Detected (Not Detect.) Influenza Type B (PCR) NEGATIVE (Negative) M. pneumoniae (PCR) Not Detected (Not Detect.) Parainfluenza 1 (PCR) Not Detected (Not Detect.) Parainfluenza 2 (PCR) Not Detected (Not Detect.) Parainfluenza 3 (PCR) Not Detected (Not Detect.) Parainfluenza 4 (PCR) Not Detected (Not Detect.) RSV (PCR) Not Detected (Not Detect.) RSV RNA Qual (PCR) NEGATIVE (Negative) Entero/Rhino (PCR) Not Detected (Not Detect.) SARS-CoV-2 RNA (RT-PCR) Not Detected (Not Detect.) 08/05/20 08/05/20 08/05/20 Range/Units 05:50 05:50 05:50 WBC 17.0 H (4.8-10.8) X10*3/uL RBC 4.10 L (4.60-5.80) X10*6/uL Hgb 13.8 L (14.0-18.0) g/dl Hct 40.8 L (42-52) % MCV 99.5 H (80-98) fL MCH 33.7 H (27.0-33.0) pg MCHC 33.8 (31.0-36.0) g/dl RDW 12.9 (11.0-16.0) % Plt Count 226 (160-400) X10*3/uL MPV 8.1 L (9.4-12.4) fL Immature Gran % (Auto) (0.0-0.4) % Neut % (Auto) (45-73) % Lymph % (Auto) (20-40) % [place] % (Auto) (2-11) % Eos % (Auto) (0-4) % Baso % (Auto) (0-2) % Lymph # (Auto) (1.2-4.9) X10*3/uL [place] # (Auto) (0.1-1.2) X10*3/uL Eos # (Auto) (0.0-0.4) X10*3/uL Baso # (Auto) (0.0-0.2) X10*3/uL Abs Immat Gran (auto) (0.00-0.03) X10*3/uL Absolute Neuts (auto) (2.0-8.3) X10*3/uL Absolute Nucleated RBC 0.000 (0.0-0.012) X10*3/uL Nucleated RBC % (auto) 0.0 (0.0-0.2) /100WBC VBG pH (7.32-7.43) VBG pCO2 mmHg VBG pO2 mmHg VBG HCO3 (22-26) mmol/L VBG O2 Saturation % VBG Base Excess mmol/L Sodium 135 (135-145) mmol/L Potassium 4.7 (3.3-5.1) mmol/L Chloride 100 (96-108) mmol/L Carbon Dioxide 29 (22-29) mmol/L Anion Gap 11 L (12-20) BUN 17 H (9-16) mg/dL Creatinine 0.68 (0.5-1.4) mg/dL Estim Creat Clear Calc 126.0 Estimated GFR > 60 Random Glucose 89 (60-115) mg/dL Calcium 9.3 (8.4-10.2) mg/dL Troponin I High Sens (<3.5-35.0) ng/L C-Reactive Protein (< or = 0.50) mg/dL Procalcitonin ng/mL Respiratory Panel Rasmussen Adenovirus (Rapid PCR) (Not Detect.) B.pert (TEM-PCR) (Not Detect.) B.parapertussis DNA PCR (Not Detect.) C. pneumoniae DNA (PCR) (Not Detect.) Coronavirus (PCR) (Negative) Coronavirus OC43 (PCR) (Not Detect.) Coronavirus HKU1 (PCR) (Not Detect.) Coronavirus 229E (PCR) (Not Detect.) Coronavirus NL63 (PCR) (Not Detect.) HIV 1&2 Ab/P24 Ag 4thGn Nonreactive (Nonreactive) Human Metapneumovir PCR (Not Detect.) Influenza A (RT-PCR) (Not Detect.) Influenza Type A (PCR) (Negative) Influenza B (RT-PCR) (Not Detect.) Influenza Type B (PCR) (Negative) M. pneumoniae (PCR) (Not Detect.) Parainfluenza 1 (PCR) (Not Detect.) Parainfluenza 2 (PCR) (Not Detect.) Parainfluenza 3 (PCR) (Not Detect.) Parainfluenza 4 (PCR) (Not Detect.) RSV (PCR) (Not Detect.) RSV RNA Qual (PCR) (Negative) Entero/Rhino (PCR) (Not Detect.) SARS-CoV-2 RNA (RT-PCR) (Not Detect.) 08/05/20 08/06/20 08/06/20 Range/Units 05:51 05:34 05:34 WBC 13.2 H (4.8-10.8) X10*3/uL RBC 3.80 L (4.60-5.80) X10*6/uL Hgb 12.4 L (14.0-18.0) g/dl Hct 37.3 L (42-52) % MCV 98.2 H (80-98) fL MCH 32.6 (27.0-33.0) pg MCHC 33.2 (31.0-36.0) g/dl RDW 12.6 (11.0-16.0) % Plt Count 212 (160-400) X10*3/uL MPV 8.2 L (9.4-12.4) fL Immature Gran % (Auto) (0.0-0.4) % Neut % (Auto) (45-73) % Lymph % (Auto) (20-40) % [place] % (Auto) (2-11) % Eos % (Auto) (0-4) % Baso % (Auto) (0-2) % Lymph # (Auto) (1.2-4.9) X10*3/uL [place] # (Auto) (0.1-1.2) X10*3/uL Eos # (Auto) (0.0-0.4) X10*3/uL Baso # (Auto) (0.0-0.2) X10*3/uL Abs Immat Gran (auto) (0.00-0.03) X10*3/uL Absolute Neuts (auto) (2.0-8.3) X10*3/uL Absolute Nucleated RBC 0.000 (0.0-0.012) X10*3/uL Nucleated RBC % (auto) 0.0 (0.0-0.2) /100WBC VBG pH 7.35 (7.32-7.43) VBG pCO2 56 mmHg VBG pO2 32 mmHg VBG HCO3 31 H (22-26) mmol/L VBG O2 Saturation 45.0 % VBG Base Excess 4.8 mmol/L Sodium 134 L (135-145) mmol/L Potassium 4.4 (3.3-5.1) mmol/L Chloride 98 (96-108) mmol/L Carbon Dioxide 30 H (22-29) mmol/L Anion Gap 10 L (12-20) BUN 19 H (9-16) mg/dL Creatinine 0.68 (0.5-1.4) mg/dL Estim Creat Clear Calc 126.0 Estimated GFR > 60 Random Glucose 108 (60-115) mg/dL Calcium 9.0 (8.4-10.2) mg/dL Troponin I High Sens (<3.5-35.0) ng/L C-Reactive Protein 6.57 H (< or = 0.50) mg/dL Procalcitonin ng/mL Respiratory Panel Rasmussen Adenovirus (Rapid PCR) (Not Detect.) B.pert (TEM-PCR) (Not Detect.) B.parapertussis DNA PCR (Not Detect.) C. pneumoniae DNA (PCR) (Not Detect.) Coronavirus (PCR) (Negative) Coronavirus OC43 (PCR) (Not Detect.) Coronavirus HKU1 (PCR) (Not Detect.) Coronavirus 229E (PCR) (Not Detect.) Coronavirus NL63 (PCR) (Not Detect.) HIV 1&2 Ab/P24 Ag 4thGn (Nonreactive) Human Metapneumovir PCR (Not Detect.) Influenza A (RT-PCR) (Not Detect.) Influenza Type A (PCR) (Negative) Influenza B (RT-PCR) (Not Detect.) Influenza Type B (PCR) (Negative) M. pneumoniae (PCR) (Not Detect.) Parainfluenza 1 (PCR) (Not Detect.) Parainfluenza 2 (PCR) (Not Detect.) Parainfluenza 3 (PCR) (Not Detect.) Parainfluenza 4 (PCR) (Not Detect.) RSV (PCR) (Not Detect.) RSV RNA Qual (PCR) (Negative) Entero/Rhino (PCR) (Not Detect.) SARS-CoV-2 RNA (RT-PCR) (Not Detect.) 08/06/20 Range/Units 05:34 WBC (4.8-10.8) X10*3/uL RBC (4.60-5.80) X10*6/uL Hgb (14.0-18.0) g/dl Hct (42-52) % MCV (80-98) fL MCH (27.0-33.0) pg MCHC (31.0-36.0) g/dl RDW (11.0-16.0) % Plt Count (160-400) X10*3/uL MPV (9.4-12.4) fL Immature Gran % (Auto) (0.0-0.4) % Neut % (Auto) (45-73) % Lymph % (Auto) (20-40) % [place] % (Auto) (2-11) % Eos % (Auto) (0-4) % Baso % (Auto) (0-2) % Lymph # (Auto) (1.2-4.9) X10*3/uL [place] # (Auto) (0.1-1.2) X10*3/uL Eos # (Auto) (0.0-0.4) X10*3/uL Baso # (Auto) (0.0-0.2) X10*3/uL Abs Immat Gran (auto) (0.00-0.03) X10*3/uL Absolute Neuts (auto) (2.0-8.3) X10*3/uL Absolute Nucleated RBC (0.0-0.012) X10*3/uL Nucleated RBC % (auto) (0.0-0.2) /100WBC VBG pH (7.32-7.43) VBG pCO2 mmHg VBG pO2 mmHg VBG HCO3 (22-26) mmol/L VBG O2 Saturation % VBG Base Excess mmol/L Sodium (135-145) mmol/L Potassium (3.3-5.1) mmol/L Chloride (96-108) mmol/L Carbon Dioxide (22-29) mmol/L Anion Gap (12-20) BUN (9-16) mg/dL Creatinine (0.5-1.4) mg/dL Estim Creat Clear Calc Estimated GFR Random Glucose (60-115) mg/dL Calcium (8.4-10.2) mg/dL Troponin I High Sens (<3.5-35.0) ng/L C-Reactive Protein (< or = 0.50) mg/dL Procalcitonin 0.03 ng/mL Respiratory Panel Rasmussen Adenovirus (Rapid PCR) (Not Detect.) B.pert (TEM-PCR) (Not Detect.) B.parapertussis DNA PCR (Not Detect.) C. pneumoniae DNA (PCR) (Not Detect.) Coronavirus (PCR) (Negative) Coronavirus OC43 (PCR) (Not Detect.) Coronavirus HKU1 (PCR) (Not Detect.) Coronavirus 229E (PCR) (Not Detect.) Coronavirus NL63 (PCR) (Not Detect.) HIV 1&2 Ab/P24 Ag 4thGn (Nonreactive) Human Metapneumovir PCR (Not Detect.) Influenza A (RT-PCR) (Not Detect.) Influenza Type A (PCR) (Negative) Influenza B (RT-PCR) (Not Detect.) Influenza Type B (PCR) (Negative) M. pneumoniae (PCR) (Not Detect.) Parainfluenza 1 (PCR) (Not Detect.) Parainfluenza 2 (PCR) (Not Detect.) Parainfluenza 3 (PCR) (Not Detect.) Parainfluenza 4 (PCR) (Not Detect.) RSV (PCR) (Not Detect.) RSV RNA Qual (PCR) (Negative) Entero/Rhino (PCR) (Not Detect.) SARS-CoV-2 RNA (RT-PCR) (Not Detect.) Airway Mallampati Class: III TM Dist: >3cm Neck ROM: Limited (Ankylosing spondylitis) Heart: RRR Lungs: CTAB Assessment and Plan Assessment Anesthesia Assessment: Anesthesia Plan Discussed and Chart Reviewed Final Anesthetic Review NPO: Yes ASA Class: III Final Preanesthetic Review: No Changes in Pt Med Stat, Meds/Allgs Chart Reviewed, Consent Obtained/Reviewed and Anes Risks/Benef Reviewed Patient Risk: Intermediate Procedure Risk: Low Assessment/Block/Sedation in SS: Assess/Block/Sedation-SS Anesthetic Plan Anesthetic Plan: GA Disposition: Inp. Admit - IMC
--- NOTE | 2020-08-06 10:30 | MHC.SLORD ---
Speech Language Pathology Order Status: HYDRO GENERATION MANAGER spoke with RN. RN reports patient tolerated his breakfast without difficulty. Patient passed bedside dysphagia evaluation yesterday. Patient is on an unmodified diet REGULAR solids/ THIN liquids.
[2020-08-06] MEDS: Throat Lozenge, Medicated LOZENGE 1 LOZENGE MUCOUS MEM (11:23)
[2020-08-06] MEDS: Benzonatate 100 MG CAPSULE 200 MG PO ×3 (12:26→20:42)
[2020-08-06] MEDS: carBAMazepine 200 MG TABLET 600 MG PO ×2 (12:26→20:42)
[2020-08-06] MEDS: Aspirin Enteric Coated 81 MG TABLET.DR PO (12:27)
[2020-08-06] MEDS: 0.9 % Sodium Chloride Flush 3 ML SYRINGE IVFLUSH (12:30)
--- NOTE | 2020-08-06 12:57 | P.BOP_ITS ---
Brief Operative Note Date of Service: 08/06/20 Pre-op diagnosis: Organizing pneumonia Post-op diagnosis: same Procedure: Flexible bronchoscopy with bronchoalveolar lavage performed through laryngeal mask airway under general anesthesia with bronchoscope advanced through the tracheobronchial tree with visualization and clearance of copious amount of thin secretions. Underlying bronchial mucosa looking mildly inflamed. Right middle lobe bronchoalveolar lavage performed with 60 cc of normal saline and 20 cc of sample sent for testing. Patient tolerated the procedure well and was transferred to PACU for further care. Will await microbiologic studies on the bronchoalveolar lavage sample. Surgeon: Brennan Chapman MD Anesthesia: GLMA Was an Lithographic Plate Maker Apprentice used for this Procedure?: No Estimated blood loss (mL): 0
[2020-08-06] MEDS: Fluticasone Propionate Nasal 16 GM SPRAY 2 SPRAY NOSTRIL-B (13:51)
[2020-08-06] MEDS: Lactated Ringers 1,000 ML 100 ML IVCONT (13:51)
[2020-08-06] MEDS: cefEPime HCl 2 GM in 0.9 % Sodium Chloride 50 ML IV ×2 (13:52→22:51)
--- NOTE | 2020-08-06 13:54 | HO.PM.IMPN ---
Subjective Subjective Date of Service: 08/06/20 Interval History: dyspnea/cough improved no sputum no fever bronchoscopy done today Physical Exam Vital Signs: Vital Signs: Last Vital Signs Temp 97.7 F 08/06/20 12:11 Pulse 76 08/06/20 12:11 Resp 20 08/06/20 12:11 BP 116/80 08/06/20 12:11 Pulse Ox 100 08/06/20 12:11 Oxygen Flow Rate 2 08/04/20 13:22 Body Mass Index 21.5 Gen: NAD, but get short of breath with speaking/exertion HEENT: sclera anicteric, moist mucus membranes Neck: supple Lungs: scattered inspiratory rhonchi Heart: regular rate and rhythm, no murmurs Abd: soft, non-tender, non-distended Ext: no edema, cyanosis, or clubbing Skin: warm/well-perfused Neuro: alert and oriented x3, no focal findings Psych: appropriate affect Objective Data Current Medications Generic Name Dose Route Start Last Admin Trade Name Freq PRN Reason Stop Dose Admin Acetaminophen 650 mg 08/04/20 17:01 08/06/20 03:11 Acetaminophen 325 Mg Tablet PO 650 mg Q6H PRN Administration Pain, Mild (Pain Scale 1-3) Albuterol Sulfate 2.5 mg 08/04/20 16:27 08/06/20 03:11 Albuterol Sulfate (0.083%) 2.5 Mg/3 Ml Vial.Neb INHALE 2.5 mg Q2H PRN Administration Shortness of Breath/Wheezing Albuterol/Ipratropium 3 ml 08/04/20 20:00 08/06/20 11:02 Albuterol/Iprat 2.5/0.5mg 3 Ml Ampul.Neb INHALE 3 ml RQ4H WHILE AWAKE [facility] Administration Aspirin 81 mg 08/05/20 09:00 08/06/20 12:27 Aspirin Enteric Coated 81 Mg Tablet.Dr PO 81 mg DAILY [facility] Administration Atorvastatin Calcium 10 mg 08/04/20 21:00 08/05/20 20:52 Atorvastatin Calcium 10 Mg Tablet PO 10 mg BEDTIME [facility] Administration Benzonatate 200 mg 08/04/20 21:00 08/06/20 12:26 Benzonatate 100 Mg Capsule PO 200 mg TID [facility] Administration Carbamazepine 600 mg 08/04/20 21:00 08/06/20 12:26 Carbamazepine 200 Mg Tablet PO 600 mg BID [facility] Administration Enoxaparin Sodium 40 mg 08/04/20 18:00 08/05/20 16:21 Enoxaparin Sodium 40 Mg/0.4 Ml Syringe SUBCUT 40 mg Q24H [facility] Administration Fluticasone Propionate 2 spray 08/05/20 09:00 08/05/20 09:46 Fluticasone Propionate Nasal 16 Gm [place] NOSTRIL-B 2 spray DAILY [facility] Administration Lactated Ringer's 1,000 mls @ 100 mls/hr 08/06/20 08:45 Lr IVCONT .Q10H [facility] Cefepime HCl 2 gm/ Sodium 50 mls @ 100 mls/hr 08/06/20 11:00 Chloride IV Q12H [facility] Loratadine 10 mg 08/04/20 16:57 Loratadine 10 Mg Tablet PO DAILY PRN Runny Nose Methylprednisolone Sodium Succinate 40 mg 08/04/20 21:00 08/06/20 12:27 Methylprednisolone Sod Succ 40 Mg/Ml Vial IVPUSH 40 mg Q8H [facility] Administration Omeprazole 20 mg 08/05/20 06:30 08/06/20 05:52 Omeprazole 20 Mg Capsule. PO Not Given DAILY@0630 [facility] Ondansetron HCl 4 mg 08/06/20 10:41 Ondansetron Hcl 4 Mg/2 Ml Vial IVPUSH ONCE PRN Nausea and Vomiting Pharmacy Consult 1 each 08/04/20 15:56 Consult Rx Perform Med Rec MISCELLANE ONCE PRN Consult order Sodium Chloride 3 ml 08/05/20 00:00 08/06/20 12:30 0.9 % Sodium Chloride Flush 3 Ml Syringe IVFLUSH 3 ml QSHIFT [facility] Administration Urea 15 gm 08/05/20 09:00 08/05/20 09:46 Urea 15 Gm Powder PO 15 gm DAILY [facility] Administration Labs CBC & Chem 7: 08/06/20 05:34 08/06/20 05:34 Labs: Laboratory Results - last 24 hr 08/05/20 08/06/20 08/06/20 05:50 05:34 05:34 WBC 13.2 H RBC 3.80 L Hgb 12.4 L Hct 37.3 L MCV 98.2 H MCH 32.6 MCHC 33.2 RDW 12.6 Plt Count 212 MPV 8.2 L Absolute Nucleated RBC 0.000 Nucleated RBC % (auto) 0.0 Sodium 134 L Potassium 4.4 Chloride 98 Carbon Dioxide 30 H Anion Gap 10 L BUN 19 H Creatinine 0.68 Estim Creat Clear Calc 126.0 Estimated GFR > 60 Random Glucose 108 Calcium 9.0 C-Reactive Protein 6.57 H Procalcitonin HIV 1&2 Ab/P24 Ag 4thGn Nonreactive 08/06/20 05:34 WBC RBC Hgb Hct MCV MCH MCHC RDW Plt Count MPV Absolute Nucleated RBC Nucleated RBC % (auto) Sodium Potassium Chloride Carbon Dioxide Anion Gap BUN Creatinine Estim Creat Clear Calc Estimated GFR Random Glucose Calcium C-Reactive Protein Procalcitonin 0.03 HIV 1&2 Ab/P24 Ag 4thGn Quality Stroke Does the patient have a stroke diagnosis?: No VTE Prior VTE?: No VTE Risk Level:: Medical - moderate - high VTE Device Contraindication: N/A - Device Ordered VTE Drug Contraindication: N/A - Med Ordered Assessment and Plan (1) Dyspnea on exertion: Status: Acute (2) Acute hyponatremia: Status: Acute (3) Lactic acid acidosis: Status: Acute Assessment and Plan: 59 year old nonsmoking male with ankylosing spondylitis on treatment with infliximab and approximately 2 years of chronic lung disease variously described as COPD, ILD, or organizing pneumonia, just discharged from this hospital yesterday after being admitted 07/30/20 for exacerbation of his lung disease and presenting with recurrent dyspnea and hypoxia # 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 BAL sent- follow up routine/fungal/AFB cultures. Changed levofloxacin to cefepime d#1. Continue IV methylprednisolone; taper very slowly. Nebulizer treatments. Ntably, pt is on infliximab for and has a positive CURT titer at 1:320 in a homogenous nuclear pattern # acute hypoxic respiratory failure - wean O2 as tolerated # hyponatremia, history - resolved; continue urea therapy started on prior admission # - on infliximab as outpatient- sees Dr Sena at [facility] # thoracic outlet syndrome - continue carbamazepine # GERD - continue PPI # VTE ppx - LMWH
[2020-08-06] MEDS: Urea 15 GM POWDER PO (14:01)
[2020-08-06] MEDS: Enoxaparin Sodium 40 MG/0.4 ML SYRINGE SUBCUT (17:45)
[2020-08-06] MEDS: Atorvastatin Calcium 10 MG TABLET PO (20:41)
[2020-08-07] VITALS (12 sets, daily range): BP systolic 113–140; BP diastolic 51–65; PULSE 61–101; RESP 18–20; TEMP 36.4–37.1; O2SAT 93–100
[2020-08-07] MEDS: Albuterol Sulfate (0.083%) 2.5 MG/3 ML VIAL.NEB INHALE ×3 (00:14→18:27)
[2020-08-07] MEDS: Lactated Ringers 1,000 ML 100 ML IVCONT (00:32)
[2020-08-07] MEDS: Throat Lozenge, Medicated LOZENGE 1 LOZENGE MUCOUS MEM ×5 (00:38→15:53)
[2020-08-07] MEDS: methylPREDNISolone Sod Succ 40 MG/ML VIAL IVPUSH ×3 (06:27→20:44)
[2020-08-07] MEDS: Omeprazole 20 MG CAPSULE.DR PO (06:27)
[2020-08-07] MEDS: Albuterol/Iprat 2.5/0.5MG 3 ML AMPUL.NEB INHALE (07:19)
[2020-08-07] MEDS: Urea 15 GM POWDER PO (08:39)
[2020-08-07] MEDS: Aspirin Enteric Coated 81 MG TABLET.DR PO (08:39)
[2020-08-07] MEDS: 0.9 % Sodium Chloride Flush 3 ML SYRINGE IVFLUSH ×3 (08:39→23:12)
[2020-08-07] MEDS: carBAMazepine 200 MG TABLET 600 MG PO ×2 (08:39→20:43)
[2020-08-07] MEDS: Benzonatate 100 MG CAPSULE 200 MG PO ×3 (08:39→20:42)
[2020-08-07] MEDS: Fluticasone Propionate Nasal 16 GM SPRAY 2 SPRAY NOSTRIL-B (08:43)
[2020-08-07] MEDS: cefEPime HCl 2 GM in 0.9 % Sodium Chloride 50 ML IV ×2 (10:52→23:08)
--- NOTE | 2020-08-07 12:17 | P.PNPL_ITS ---
Subjective Subjective Date of Service: 08/07/20 Principal diagnosis: Organizing pneumonia Interval history: 59-year-old gentleman, lifetime nonsmoker, with underlying history of ankylosing spondylitis on Remicade, followed on outpatient basis for chronic recurrent organizing pneumonia, chronic productive cough and dyspnea. He has been recently admitted to [facility] for dyspnea on 07/29/2020 and discharged on 08/03/2020. Patient has been readmitted on 08/04/2020 with worsening dyspnea. His CT angiogram chest was negative for pulmonary emboli, but demonstrated impacted bronchi. He has been continued on his regimen of Solu-Medrol and Levaquin. Patient has had bronchoscope on 08/06/2020 demonstrating copious secretions, bronchoalveolar lavage studies were sent. Today patient reports improved dyspnea and cough. Objective Data Labs CBC & Chem 7: 08/06/20 05:34 08/06/20 05:34 Microbiology Microbiology Results: Microbiology 08/06/20 10:37 Bronchial Alveo Lavage Gram Stain - Final 08/06/20 10:37 Bronchial Alveo Lavage Routine Culture - Preliminary Culture in progress. Review of Systems Cardiovascular: Reports dyspnea Respiratory: Reports cough, Reports excessive phlegm production and Reports dyspnea Physical Exam Vital Signs: Vital Signs: Last Vital Signs Temp 97.5 F 08/07/20 11:44 Pulse 68 08/07/20 11:44 Resp 19 08/07/20 11:44 BP 113/65 08/07/20 11:44 Pulse Ox 94 08/07/20 11:44 Oxygen Flow Rate 2 08/04/20 13:22 Body Mass Index 21.5 Const: General: no acute distress, alert and awake Eyes: Sclerae: sclerae normal EOM: EOMs intact bilaterally Neck: Neck: Yes no lymphadenopathy, Yes trachea midline and Yes supple Resp: Effort & Inspection: normal respiratory effort and no respiratory distress Auscultation: clear to auscultation bilaterally Cardio: Rate: regular rate Rhythm: regular rhythm Heart sounds: no gallops, no murmurs and no rubs GI: Palpation (GI): Soft to palpation and Other GI palpation findings present ( Nontender) Auscultation: normal bowel sounds Extrem: General: Yes no pedal edema, No clubbing and No cyanosis Procedures Date of Service Date of Service: 08/07/20 Assessment and Plan Assessment and plan (1) Organizing pneumonia: Status: Acute Assessment and Plan: Impression: 59-year-old gentleman with known underlying recurrent organizing pneumonia on the background of ankylosing spondylitis treated with Remicade with intermittent exacerbations. Now with an acute exacerbation. Improved after bronchoscopic clearance of secretions. Now with ineffective cough. Recommendation: Continue on cefepime and Solu-Medrol. Cough assist every now while awake. Will continue to follow. (2) Dyspnea on exertion: Status: Acute Time Spent With Patient Time with patient: 25 - 35 minutes Progress Note: Quality Stroke Does the patient have a stroke diagnosis?: No
--- NOTE | 2020-08-07 13:17 | HO.PM.IMPN ---
Subjective Subjective Date of Service: 08/07/20 Interval History: feeling better, walking slowly in hallways without oxygen, complaining of worsening cough since yesterday mostly dry denies fever chills complaining of left leg burning pain worse with walking gets better with rest. [employer] no headache, no dizziness general no fever no chills GI no nausea no vomiting no diarrhea skin no rash Physical Exam Vital Signs: Vital Signs: Last Vital Signs Temp 97.5 F 08/07/20 11:44 Pulse 68 08/07/20 11:44 Resp 19 08/07/20 11:44 BP 113/65 08/07/20 11:44 Pulse Ox 94 08/07/20 11:44 Oxygen Flow Rate 2 08/04/20 13:22 Body Mass Index 21.5 Gen: no acute distress talking slowly taking breaks due to shortness of breath HEENT: sclera anicteric, moist mucus membranes Neck: supple Lungs: scattered inspiratory rhonchi, no wheeze no crackles Heart: regular rate and rhythm, no murmurs Abd: soft, non-tender, non-distended Ext: no edema, cyanosis, or clubbing Skin: warm/well-perfused Neuro: alert and oriented x3, no focal findings Psych: appropriate affect Objective Data Current Medications Generic Name Dose Route Start Last Admin Trade Name Freq PRN Reason Stop Dose Admin Acetaminophen 650 mg 08/04/20 17:01 08/06/20 03:11 Acetaminophen 325 Mg Tablet PO 650 mg Q6H PRN Administration Pain, Mild (Pain Scale 1-3) Albuterol Sulfate 2.5 mg 08/04/20 16:27 08/07/20 11:29 Albuterol Sulfate (0.083%) 2.5 Mg/3 Ml Vial.Neb INHALE 2.5 mg Q2H PRN Administration Shortness of Breath/Wheezing Albuterol Sulfate 2.5 mg 08/07/20 18:00 Albuterol Sulfate (0.083%) 2.5 Mg/3 Ml Vial.Neb INHALE RQ6H [facility] Aspirin 81 mg 08/05/20 09:00 08/07/20 08:39 Aspirin Enteric Coated 81 Mg Tablet. PO 81 mg DAILY [facility] Administration Atorvastatin Calcium 10 mg 08/04/20 21:00 08/06/20 20:41 Atorvastatin Calcium 10 Mg Tablet PO 10 mg BEDTIME [facility] Administration Benzocaine 1 lozenge 08/06/20 23:40 08/07/20 12:49 Throat Lozenge, Medicated Lozenge MUCOUS MEM 1 lozenge Q2H PRN Administration Sore Throat Benzonatate 200 mg 08/04/20 21:00 08/07/20 08:39 Benzonatate 100 Mg Capsule PO 200 mg TID KAVEH Administration Carbamazepine 600 mg 08/04/20 21:00 08/07/20 08:39 Carbamazepine 200 Mg Tablet PO 600 mg BID [facility] Administration Enoxaparin Sodium 40 mg 08/04/20 18:00 08/06/20 17:45 Enoxaparin Sodium 40 Mg/0.4 Ml Syringe SUBCUT 40 mg Q24H [facility] Administration Fluticasone Propionate 2 spray 08/05/20 09:00 08/07/20 08:43 Fluticasone Propionate Nasal 16 Gm [place] NOSTRIL-B 2 spray DAILY [facility] Administration Cefepime HCl 2 gm/ Sodium 50 mls @ 100 mls/hr 08/06/20 11:00 08/07/20 11:27 Chloride IV Infused Q12H [facility] Infusion Loratadine 10 mg 08/04/20 16:57 Loratadine 10 Mg Tablet PO DAILY PRN Runny Nose Methylprednisolone Sodium Succinate 40 mg 08/04/20 21:00 08/07/20 12:49 Methylprednisolone Sod Succ 40 Mg/Ml Vial IVPUSH 40 mg Q8H [facility] Administration Omeprazole 20 mg 08/05/20 06:30 08/07/20 06:27 Omeprazole 20 Mg Capsule.Dr PO 20 mg DAILY@0630 [facility] Administration Ondansetron HCl 4 mg 08/06/20 10:41 Ondansetron Hcl 4 Mg/2 Ml Vial IVPUSH ONCE PRN Nausea and Vomiting Pharmacy Consult 1 each 08/04/20 15:56 Consult Rx Perform Med Rec MISCELLANE ONCE PRN Consult order Sodium Chloride 3 ml 08/05/20 00:00 08/07/20 08:39 0.9 % Sodium Chloride Flush 3 Ml Syringe IVFLUSH 3 ml QSHIFT [facility] Administration Urea 15 gm 08/05/20 09:00 08/07/20 08:39 Urea 15 Gm Powder PO 15 gm DAILY [facility] Administration Labs CBC & Chem 7: 08/06/20 05:34 08/06/20 05:34 Microbiology Microbiology Results: Microbiology 08/06/20 10:37 Gram Stain - Final Bronchial Alveo Lavage Routine Culture - Preliminary Culture in progress. Quality Stroke Does the patient have a stroke diagnosis?: No VTE Prior VTE?: No VTE Risk Level:: Medical - moderate - high VTE Device Contraindication: N/A - Device Ordered VTE Drug Contraindication: N/A - Med Ordered Assessment and Plan (1) Acute respiratory failure with hypoxia: Status: Acute (2) Organizing pneumonia: Status: Acute (3) Dyspnea on exertion: Status: Acute (4) Ankylosing spondylitis: Status: Acute (5) ILD (interstitial lung disease): Status: Acute (6) Chronic cough: Status: Acute Assessment and Plan: 59 year old nonsmoking male with ankylosing spondylitis on treatment with infliximab and approximately 2 years of chronic lung disease variously described as COPD, ILD, or organizing pneumonia, just discharged from this hospital yesterday after being admitted 07/30/20 for exacerbation of his lung disease and presenting with recurrent dyspnea and hypoxia # 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 BAL sent- routine/fungal/AFB cultures pending continue cefepime d#2. Continue IV methylprednisolone 40 mg q.8 and nebulizer treatments. case discussed with pulmonology the recommend to continue current treatment today, elevated WBC likely due to steroid pt is on infliximab for ankylosing spondylitis with positive CURT titer at 1:320 in a homogenous nuclear pattern, recommend outpatient follow-up with Rheumatology # acute hypoxic respiratory failure - currently ambulating without oxygen, will obtain home O2 eval prior to discharge # chronic hyponatremia, - continue urea therapy started on prior admission, DC fluid, sodium dropped to 134 follow BMP at a.m. # left lower extremity burning pain with ambulation, left lower extremity Doppler study negative for DVT questions symptoms related to poor circulation, vascular surgery consult, ESR 3, CRP 6.57 recommend close outpatient rheumatology follow up # - on infliximab as outpatient- sees Dr Sena at [facility] # thoracic outlet syndrome - continue carbamazepine # GERD - continue PPI # VTE ppx - LMWH
[2020-08-07] MEDS: Enoxaparin Sodium 40 MG/0.4 ML SYRINGE SUBCUT (18:00)
--- NOTE | 2020-08-07 19:15 | HO.POSTANES ---
Post Anesthesia Evaluation Post Anesthesia Evaluation Vital Signs: Vital Signs Temp Pulse Resp BP Pulse Ox 08/07/20 18:27 71 08/07/20 15:20 97.7 F 101 H 20 120/60 94 08/07/20 11:44 97.5 F 68 19 113/65 94 08/07/20 11:34 68 08/07/20 10:42 95 08/07/20 07:40 97.9 F 62 20 134/65 97 08/07/20 07:23 64 Anesthesia: General Endotracheal-GETA Mental Status: Awake Pain Control: Satisfactory Nausea/Vomiting: None Hydration: Adequate Anesthesia-Related Issues: No Anes. Related Issues
[2020-08-07] MEDS: Acetaminophen 325 MG TABLET 650 MG PO (20:40)
[2020-08-07] MEDS: Atorvastatin Calcium 10 MG TABLET PO (20:42)
[2020-08-08] VITALS (9 sets, daily range): BP systolic 123–135; BP diastolic 60–68; PULSE 61–85; RESP 16–19; TEMP 36.4–36.7; O2SAT 93–100
[2020-08-08] MEDS: Albuterol Sulfate (0.083%) 2.5 MG/3 ML VIAL.NEB INHALE ×3 (00:02→17:48)
[2020-08-08] MEDS: Omeprazole 20 MG CAPSULE.DR PO (05:39)
[2020-08-08] MEDS: methylPREDNISolone Sod Succ 40 MG/ML VIAL IVPUSH ×3 (05:40→21:45)
[2020-08-08] MEDS: carBAMazepine 200 MG TABLET 600 MG PO ×2 (08:46→21:45)
[2020-08-08] MEDS: Benzonatate 100 MG CAPSULE 200 MG PO ×3 (08:47→21:45)
[2020-08-08] MEDS: Urea 15 GM POWDER PO (08:47)
[2020-08-08] MEDS: Throat Lozenge, Medicated LOZENGE 1 LOZENGE MUCOUS MEM ×2 (08:47→21:52)
[2020-08-08] MEDS: Fluticasone Propionate Nasal 16 GM SPRAY 2 SPRAY NOSTRIL-B (08:47)
[2020-08-08] MEDS: Aspirin Enteric Coated 81 MG TABLET.DR PO (08:47)
[2020-08-08] MEDS: 0.9 % Sodium Chloride Flush 3 ML SYRINGE IVFLUSH ×3 (08:48→21:46)
[2020-08-08] MEDS: cefEPime HCl 2 GM in 0.9 % Sodium Chloride 50 ML IV ×2 (10:56→21:45)
[2020-08-08] MEDS: Acetaminophen 325 MG TABLET 650 MG PO ×2 (16:03→21:52)
--- NOTE | 2020-08-08 16:34 | P.PNIM_ITS ---
Subjective Subjective Date of Service: 08/08/20 Interval History: no acute complaints, became short of breath after ambulating, oxygenation remains stable, cough has significantly improved, no fever chills, persistent left leg pain. [employer] G[employer] WE[employer]HER no headache, no dizziness general no fever, no chills GI no nausea, no vomiting, no diarrhea skin no rash Physical Exam Vital Signs: Vital Signs: Last Vital Signs Temp 98 F 08/08/20 14:59 Pulse 85 08/08/20 14:59 Resp 18 08/08/20 14:59 BP 135/62 08/08/20 14:59 Pulse Ox 98 08/08/20 14:59 Oxygen Flow Rate 2 08/04/20 13:22 Body Mass Index 21.5 Gen: no acute distress , talking in full sentences without break HEENT: sclera anicteric, moist mucus membranes Neck: supple Lungs: clear to auscultation, no respiratory distress, no wheeze no crackles Heart: regular rate and rhythm, no murmurs Abd: soft, non-tender, non-distended Ext: no edema, cyanosis, or clubbing, good peripheral pulses, no left leg swelling Skin: warm/well-perfused Neuro: alert and oriented x3, no focal findings Psych: appropriate affect Objective Data Current Medications Generic Name Dose Route Start Last Admin Trade Name Freq PRN Reason Stop Dose Admin Acetaminophen 650 mg 08/04/20 17:01 08/08/20 16:03 Acetaminophen 325 Mg Tablet PO 650 mg Q6H PRN Administration Pain, Mild (Pain Scale 1-3) Albuterol Sulfate 2.5 mg 08/04/20 16:27 08/07/20 11:29 Albuterol Sulfate (0.083%) 2.5 Mg/3 Ml Vial.Neb INHALE 2.5 mg Q2H PRN Administration Shortness of Breath/Wheezing Albuterol Sulfate 2.5 mg 08/07/20 18:00 08/08/20 11:22 Albuterol Sulfate (0.083%) 2.5 Mg/3 Ml Vial.Neb INHALE 2.5 mg RQ6H [facility] Administration Aspirin 81 mg 08/05/20 09:00 08/08/20 08:47 Aspirin Enteric Coated 81 Mg Tablet.Dr PO 81 mg DAILY [facility] Administration Atorvastatin Calcium 10 mg 08/04/20 21:00 08/07/20 20:42 Atorvastatin Calcium 10 Mg Tablet PO 10 mg BEDTIME [facility] Administration Benzocaine 1 lozenge 08/06/20 23:40 08/08/20 08:47 Throat Lozenge, Medicated Lozenge MUCOUS MEM 1 lozenge Q2H PRN Administration Sore Throat Benzonatate 200 mg 08/04/20 21:00 08/08/20 16:03 Benzonatate 100 Mg Capsule PO 200 mg TID [facility] Administration Carbamazepine 600 mg 08/04/20 21:00 08/08/20 08:46 Carbamazepine 200 Mg Tablet PO 600 mg BID [facility] Administration Enoxaparin Sodium 40 mg 08/04/20 18:00 08/07/20 18:00 Enoxaparin Sodium 40 Mg/0.4 Ml Syringe SUBCUT 40 mg Q24H [facility] Administration Fluticasone Propionate 2 spray 08/05/20 09:00 08/08/20 08:47 Fluticasone Propionate Nasal 16 Gm [place] NOSTRIL-B 2 spray DAILY [facility] Administration Cefepime HCl 2 gm/ Sodium 50 mls @ 100 mls/hr 08/06/20 11:00 08/08/20 11:33 Chloride IV Infused Q12H [facility] Infusion Loratadine 10 mg 08/04/20 16:57 Loratadine 10 Mg Tablet PO DAILY PRN Runny Nose Methylprednisolone Sodium Succinate 40 mg 08/04/20 21:00 08/08/20 12:47 Methylprednisolone Sod Succ 40 Mg/Ml Vial IVPUSH 40 mg Q8H [facility] Administration Omeprazole 20 mg 08/05/20 06:30 08/08/20 05:39 Omeprazole 20 Mg Capsule.Dr PO 20 mg DAILY@0630 [facility] Administration Ondansetron HCl 4 mg 08/06/20 10:41 Ondansetron Hcl 4 Mg/2 Ml Vial IVPUSH ONCE PRN Nausea and Vomiting Pharmacy Consult 1 each 08/04/20 15:56 Consult Rx Perform Med Rec MISCELLANE ONCE PRN Consult order Sodium Chloride 3 ml 08/05/20 00:00 08/08/20 16:04 0.9 % Sodium Chloride Flush 3 Ml Syringe IVFLUSH 3 ml QSHIFT [facility] Administration Urea 15 gm 08/05/20 09:00 08/08/20 08:47 Urea 15 Gm Powder PO 15 gm DAILY [facility] Administration Labs CBC & Chem 7: 08/06/20 05:34 08/06/20 05:34 Microbiology Microbiology Results: Microbiology 08/06/20 10:37 Gram Stain - Final Bronchial Alveo Lavage Routine Culture - Preliminary Filamentous fungus Quality Stroke Does the patient have a stroke diagnosis?: No VTE Prior VTE?: No VTE Risk Level:: Medical - moderate - high VTE Device Contraindication: N/A - Device Ordered VTE Drug Contraindication: N/A - Med Ordered Assessment and Plan (1) Acute respiratory failure with hypoxia: Status: Acute (2) ILD (interstitial lung disease): Status: Acute (3) Ankylosing spondylitis: Status: Acute (4) Organizing pneumonia: Status: Acute (5) Chronic cough: Status: Acute Assessment and Plan: 59 year old nonsmoking male with ankylosing spondylitis on treatment with infliximab and approximately 2 years of chronic lung disease variously described as COPD, ILD, or organizing pneumonia, just discharged from this hospital yesterday after being admitted 07/30/20 for exacerbation of his lung disease and presenting with recurrent dyspnea and hypoxia # exacerbation of ILD vs. COPD vs. Organizing pneumonia symptoms gradually improving with less cough, ambulating in [place], had an episode of shortness of breath after ambulating, oxygenation remains stable bronchoscopy done 08/06 showed inflammed bronchial mucosa with copious secretions. BAL sent- routine/fungal/AFB cultures pending continue cefepime d#3, IV methylprednisolone 40 mg q.8 and nebulizer treat ments. case discussed with Dr Chapman he recommend to continue current treatment for next 24-48h , elevated WBC likely due to steroid pt is on infliximab for ankylosing spondylitis with positive CURT titer at 1:320 in a homogenous nuclear pattern, recommend outpatient follow-up with Rheumatology # acute hypoxic respiratory failure - currently ambulating without oxygen, will obtain home O2 eval prior to discharge # chronic hyponatremia, - continue urea therapy started on prior admission, DC fluid, sodium dropped to 134 follow BMP at a.m. # left lower extremity burning pain with ambulation, left lower extremity Doppler study negative for DVT , noted to have normal peripheral pulses, ESR 3, CRP 6.57 recommend close outpatient rheumatology follow up, will check folic acid and B12 # - on infliximab as outpatient- sees Dr Sena at [facility] # thoracic outlet syndrome - continue carbamazepine # GERD - continue PPI # VTE ppx - LMWH
[2020-08-08] MEDS: Enoxaparin Sodium 40 MG/0.4 ML SYRINGE SUBCUT (17:05)
[2020-08-08] MEDS: Atorvastatin Calcium 10 MG TABLET PO (21:45)
[2020-08-09] VITALS (7 sets, daily range): BP systolic 125–149; BP diastolic 58–73; PULSE 53–89; RESP 18–20; TEMP 36.4–36.9; O2SAT 96–100
[2020-08-09] MEDS: Albuterol Sulfate (0.083%) 2.5 MG/3 ML VIAL.NEB INHALE ×2 (00:09→10:43)
[2020-08-09 05:03] LABS: Anion Gap 10 (12-20); Blood Urea Nitrogen 19 mg/dL (9-16); Calcium 8.7 mg/dL (8.4-10.2); Carbon Dioxide 29 mmol/L (22-29); Chloride 104 mmol/L (96-108); Creatinine Clr Calc Pharmacy 142.8; Estimated Glomerular Filt Rate > 60; Glucose Random 106 mg/dL (60-115); Potassium 4.5 mmol/L (3.3-5.1); Sodium 138 mmol/L (135-145)
[2020-08-09] MEDS: Omeprazole 20 MG CAPSULE.DR PO (05:40)
[2020-08-09] MEDS: methylPREDNISolone Sod Succ 40 MG/ML VIAL IVPUSH ×2 (05:40→13:16)
[2020-08-09] MEDS: Aspirin Enteric Coated 81 MG TABLET.DR PO (08:54)
[2020-08-09] MEDS: carBAMazepine 200 MG TABLET 600 MG PO (08:55)
[2020-08-09] MEDS: Benzonatate 100 MG CAPSULE 200 MG PO (08:55)
[2020-08-09] MEDS: Acetaminophen 325 MG TABLET 650 MG PO (08:55)
[2020-08-09] MEDS: 0.9 % Sodium Chloride Flush 3 ML SYRINGE IVFLUSH (08:58)
[2020-08-09] MEDS: Fluticasone Propionate Nasal 16 GM SPRAY 2 SPRAY NOSTRIL-B (10:26)
[2020-08-09] MEDS: Urea 15 GM POWDER PO (10:27)
[2020-08-09] MEDS: cefEPime HCl 2 GM in 0.9 % Sodium Chloride 50 ML IV (11:18)
--- NOTE | 2020-08-09 13:11 | P.DS_ITS ---
DS: Providers Provider Date of Service: 08/09/20 Date of admission: 08/04/20 17:02 Primary care physician: Aime Degroot DO Consults: 08/04/20 16:53 Consult to Pulmonology Routine Consulting Provider: [facility] Pul[facility] Services Reason for consultation: COPD/ILD/organizing PNA DS: Diagnosis Discharge Diagnosis (1) Acute respiratory failure with hypoxia: Status: Acute (2) ILD (interstitial lung disease): Status: Acute (3) Ankylosing spondylitis: Status: Acute (4) Organizing pneumonia: Status: Acute (5) Chronic cough: Status: Acute DS: Medications Discharge Medications Home Medications: Home Medications Medication Instructions Recorded Confirmed albuterol sulfate 90 mcg/actuation 2 puff INHALATION Q6H PRN 03/10/20 08/04/20 aerosol inhaler aspirin 81 mg tablet,delayed 81 mg PO DAILY 03/10/20 08/04/20 release carbamazepine 200 mg tablet 600 mg PO BID 03/10/20 08/04/20 cetirizine 10 mg tablet 10 mg PO DAILY PRN 03/10/20 08/04/20 fluticasone propionate 50 2 spray INTRANASAL DAILY 03/10/20 08/04/20 mcg/actuation nasal spray,suspension omeprazole 20 mg capsule,delayed 20 mg PO DAILY@0630 03/10/20 08/04/20 release simvastatin 20 mg tablet 20 mg PO BEDTIME 03/10/20 08/04/20 urea 1 packet PO DAILY 08/04/20 08/04/20 Previous Rx's Medication Instructions Recorded cane #1 ea 08/03/20 albuterol sulfate 2.5 mg INHALATION QID #0 ml 08/09/20 amoxicillin-pot clavulanate 875 mg PO Q12H #14 tab 08/09/20 benzonatate 200 mg PO TID PRN 14 Days #84 cap 08/09/20 prednisone 60 mg PO DAILY #60 tab 08/09/20 DS: Summary Hospital Course Hospital Course: history of presenting illness Chief Complaint: dyspnea This is a 59 year old nonsmoking male with chronic lung disease variously described as COPD, ILD, or organizing pneumonia with onset about 6 months ago, who was recently admitted to this hospital on 07/29/20 and discharged yesterday for exacerbation ot the underlying lung disease. Notably, he is on infliximab for ankyolosing spondylitis. He has had recurrent episodes of dyspnea and cough over the past few months and is seen by [facility] Pulmonology Clinic. A contrast CT of the chest on 07/30/20 showed no acute airway disease and a mixture of calcified and noncalcified scattered micronodules. He was treated with steroids and nebulizer treatments for suspected ILD exacerbation and antibiotics for possible tracheobronchitis. CURT was positive at 1:320 in a homogeneous nuclear pattern. He had hyponatremia, which resolved with water restriction and urea. He was discharged home on prednisone 40 mg/d, and levofloxacin 750 mg/d. He returns to the ED today feeling worsening shortness of breath, with cough productive of yellow sputum. He denies fever, chills, or chest pain. Chest radiography showed no acute disease. Oxygen saturation dropped down to 86% on room air and as such, the hospitalist team was called to admit the patient. hospital course 59 year old nonsmoking male with ankylosing spondylitis on treatment with infliximab and approximately 2 years of chronic lung disease variously described as COPD, ILD, or organizing pneumonia, just discharged from this hospital yesterday after being admitted 07/30/20 for exacerbation of his lung disease and presenting with recurrent dyspnea and hypoxia and was diagnosed to have acute hypoxic respiratory failure due to exacerbation of ILD vs. COPD vs. Organizing pneumonia patient was treated aggressively with IV steroids, IV Cefepime and underwent bronchoscopy on 08/06 taht showed inflammed bronchial mucosa with copious secretions. BAL sent- routine/fungal/AFB cultures grew filamentous fungus and yeast therefore patient started on Diflucan 200 mg by mouth daily since patient is doing well had ambulating in hallways with improvement in shortness of breath and cough , oxygenation is stable on room air,therefore he is being discharged home on prednisone 60 mg by mouth daily and Augmentin 875 mg by mouth twice daily for 7 more days, patient has been instructed to follow-up with pulmonology on August 13 to discuss further treatment plan In regard to chronic hyponatremia, patient has been continued on urea.na 138. patient complained of left lower extremity, burning pain with ambulation, symptoms started few days ago while in hospital, left lower extremity Doppler study negative for DVT , noted to have normal peripheral pulses, ESR 3, CRP 6.57 recommend to use Tylenol and hot pack as needed and if symptoms not improved follow-up with rheumatology ,folic acid and B12 levels are pending. follow-up with rheumatology in regard to ankylosing spondylitis as outpatient- sees Dr Sena at [facility]. thoracic outlet syndrome continue carbamazepine Time Spent with Patient Time attestation: Total time spent providing and/or coordinating discharge services: Discharge coordination time: Greater than 30 minutes Quality: Stroke Does the patient have a stroke diagnosis?: No Physical Exam Vital Signs: Vital Signs: Last Vital Signs Temp 98.5 F 08/09/20 11:32 Pulse 89 08/09/20 11:32 Resp 20 08/09/20 11:32 BP 128/58 L 08/09/20 11:32 Pulse Ox 98 08/09/20 11:32 Oxygen Flow Rate 2 08/04/20 13:22 Body Mass Index 21.5 Gen: no acute distress , talking in full sentences without break HEENT: sclera anicteric, moist mucus membranes Neck: supple Lungs: clear to auscultation, no respiratory distress, no wheeze no crackles Heart: regular rate and rhythm, no murmurs Abd: soft, non-tender, non-distended Ext: no edema, cyanosis, or clubbing, good peripheral pulses, no left leg swelling Skin: warm/well-perfused Neuro: alert and oriented x3, no focal findings Psych: appropriate affect DS: Data Data Completed and Pending Pending studies at discharge: Pending at discharge 08/06/20 10:37 Cytology [PTH] Stat Labs on day of discharge: Laboratory Results - last 24 hr 08/09/20 04:23 Sodium 138 Potassium 4.5 Chloride 104 Carbon Dioxide 29 Anion Gap 10 L BUN 19 H Creatinine 0.60 Estim Creat Clear Calc 142.8 Estimated GFR > 60 Random Glucose 106 Calcium 8.7 Preliminary micro results at discharge 08/06/20 10:37 Fungal Identification - Preliminary Bronchial Alveo Lavage Filamentous fungus Yeast 08/06/20 10:37 Routine Culture - Preliminary Bronchial Alveo Lavage Filamentous fungus Discharge Plan Discharge Patient Disposition: Home, Self-Care Discharge Diagnosis: acute hypoxic respiratory failure exacerbation of interstitial lung disease organizing pneumonia left leg pain Referrals: Shirlene BENITO [Outside] - 1 Week Aime Degroot DO [Primary Care Provider] - 1 Week Discharge Medications: New amoxicillin-pot clavulanate 875-125 mg Tablet 875 mg PO Q12H Qty: 14 RF: 0 prednisone 20 mg tablet 60 mg PO DAILY Qty: 60 RF: 0 fluconazole [Diflucan] 200 mg tablet 200 mg PO DAILY Qty: 7 RF: 0 Continued urea 15 gram Powder In Packet 1 packet PO DAILY RF: 0 cetirizine 10 mg tablet 10 mg PO DAILY PRN (Reason: Runny Nose) RF: 0 carbamazepine 200 mg tablet 600 mg PO BID RF: 0 omeprazole 20 mg capsule,delayed release(DR/EC) 20 mg PO DAILY@0630 RF: 0 fluticasone propionate [Flonase Allergy Relief] 50 mcg/actuation spray,suspension 2 spray intranasal DAILY RF: 0 simvastatin 20 mg tablet 20 mg PO BEDTIME RF: 0 aspirin 81 mg tablet,delayed release (DR/EC) 81 mg PO DAILY RF: 0 albuterol sulfate 90 mcg/actuation HFA aerosol inhaler 2 puff inhalation Q6H PRN (Reason: Shortness Of Breath) RF: 0 Changed albuterol sulfate 2.5 mg /3 mL (0.083 %) Solution For Nebulization 2.5 mg INHALATION QID Qty: 0 RF: 0 benzonatate 100 mg Capsule 200 mg PO TID PRN (Reason: cough) 14 Days Qty: 84 RF: 0 Discontinued levofloxacin 750 mg Tablet 750 mg PO Q24H 9 Days Qty: 9 RF: 0 prednisone 20 mg tablet 40 mg PO DAILY 14 Days Qty: 28 RF: 0 No Action (DME) cane Device See Rx Instructions .ROUTE .MEDSUPPLY Qty: 1 RF: 0 Discharge Orders: Discharge Order (Routine); Ordered 08/09/20 Ordered By: Nick Syed Diet: advance to usual diet Activity on Discharge: As tolerated Stand Alone Forms: Patient Portal Discharge page Care Plan Goals: continue to take prednisone 60 mg once daily till seen by , take antibiotic as prescribed continue all other medications as before, take Tylenol for leg pain, follow-up levels of B12 and folic acid with primary care physician, if left leg pain persist follow-up with PCP and Rheumatology Health Concerns: interstitial lung disease/ hypoxia/COPD, continue home inhalers as prescribed Plan of Treatment: outpatient follow-up with pulmonology on 08/13/20 continued outpatient follow-up with PCP Assessment: as above
[2020-08-09] MEDS: Amoxicillin/Potassium Clav 875 MG TABLET PO (13:16)
--- NOTE | 2020-08-09 13:38 | MHC.CM.PN ---
Discharge today to home with [facility]. Family is providing transportation to home. The Pts Pharmacy was called re pre auth for med Urea. They do not carry the med. They provided contact info [facility]. [facility] will charge $80/Mo. This information was provided to the Pt.
[2020-08-09 14:29] LABS: Folate 6.7 ng/mL (> or = 4.0); Vitamin B12 817 pg/mL (200-900)
== END 2020-08-09 14:34 | disposition home or self-care (01) | DRG 137 ==
LOC: HO.ED 16:22 → HO.EDOVER 17:32 → HO.IMC 19:07
PROVIDERS: Internal Medicine Pulmonary Disease; Admitting Provider Family Medicine; Emergency Provider Emergency Medicine; PCP Internal Medicine; Visit Provider Hospitalist
PROC: 0BJ08ZZ Inspection of Tracheobronchial Tree, Via Natural or Artificial Opening Endoscopic (ICD-10-PCS; CPT 31622; principal; 2020-08-06 10:00)
DX: B37.1 Pulmonary candidiasis (principal); J96.01 Acute respiratory failure with hypoxia; J84.116 Cryptogenic organizing pneumonia; M45.9 Ankylosing spondylitis of unspecified sites in spine; J99 Respiratory disorders in diseases classified elsewhere; J84.9 Interstitial pulmonary disease, unspecified; E87.1 Hypo-osmolality and hyponatremia; K21.9 Gastro-esophageal reflux disease without esophagitis; E87.2 Acidosis; Z20.822 Contact with and (suspected) exposure to COVID-19; G54.0 Brachial plexus disorders; Z88.5 Allergy status to narcotic agent; Z88.6 Allergy status to analgesic agent; Z79.52 Long term (current) use of systemic steroids; Z79.82 Long term (current) use of aspirin; Z79.899 Other long term (current) drug therapy
CPT/HCPCS: 0241U; 11104; 36415; 71045; 71275; 80048; 82607; 82746; 84145; 84484; 85025; 85027; 86140; 87071; 87102; 87106; 87107; 87116; 87205; 87389; 87633; 88112; 88305; 88312; 92610; 93005; 93971; 94640; 99285; J0171; J0692; J1100; J1650; J2250; J2405; J2920; J2930; J3010; Q9967

== ENCOUNTER → 2020-08-13 13:26 | Outpatient (BNVA) | payer OTHER, SELFPAY | PROVIDERS: Visit Provider Internal Medicine Pulmonary Disease ==

== ENCOUNTER → 2020-08-27 09:49 | Outpatient (BNVA) | payer OTHER, SELFPAY | PROVIDERS: Visit Provider Internal Medicine Pulmonary Disease ==

== ENCOUNTER → 2020-09-10 09:29 | Outpatient (BNVA) | payer OTHER, SELFPAY | PROVIDERS: Visit Provider Internal Medicine Pulmonary Disease | DX: B49 Unspecified mycosis (principal); J17 Pneumonia in diseases classified elsewhere; J84.9 Interstitial pulmonary disease, unspecified | CPT/HCPCS: 94640; 99212 ==

== ENCOUNTER → 2020-09-22 09:06 | Outpatient (BNVA) | payer OTHER, SELFPAY | PROVIDERS: Visit Provider Internal Medicine Pulmonary Disease ==

== ENCOUNTER 2020-09-22 09:31 | Inpatient (IN) | payer OTHER, SELFPAY ==
[2020-09-22] VITALS (11 sets, daily range): BP systolic 122–160; BP diastolic 50–129; PULSE 63–87; RESP 15–24; TEMP 36.4–37; O2SAT 92–96; BMI 23.1
--- NOTE | ~2020-09-22 | CT_ITS ---
EXAMINATION: CT CHEST WITHOUT CONTRAST CLINICAL INFORMATION: Shortness of breath with cough. History of Aspergillus pneumonia. COMPARISON: CT scan of August 04, 2020 TECHNIQUE: Multidetector volumetric CT imaging of the chest was done. Axial MIP volume rendering provided. Sagittal and coronal reformatted images were obtained. This CT examination was performed using dose optimization techniques as appropriate, variously including the following: *Automated exposure control *Adjustment of mA and/or kV according to patient size (this includes techniques or standardized protocols for targeted exams where dose is matched to indication/reason for exam; i.e. extremities or head) *Use of iterative reconstruction technique DLP: 269 mGy-cm FINDINGS: LUNGS: There has been improvement of disease seen within the lingula and left lower lobe. There remains some recurrent disease with tree-in-bud configuration seen in the right lower lobe which is more prominent than on previous study of August 04, 2020 but still not covering a larger region. Central airways are patent. There are some filling defects seen within some lower lobe bronchi leading to the region of more peripheral disease. There is some bronchial wall thickening present. There is mild bronchiectasis seen within the lower lobes bilaterally, right middle lobe, and lingula. There are numerous sub-4 mm densities present bilaterally. Calcified granuloma are seen. Intrafissural lymph node seen along the right major fissure. There is a 5 mm noncalcified right apical density present on image 57 of 624 in series #5. MEDIASTINUM: There is a 1.2 cm short access left pericarinal lymph node. There is a 1 cm short axis right paratracheal lymph node. There is a 1.1 cm subcarinal lymph node. There appears to be some right hilar lymphadenopathy however this is difficult to evaluate without IV contrast. The lymphadenopathy appear to have been present on study of August 04, 2020 Heart normal size. Coronary artery calcification is seen. No pericardial effusion. No thoracic aortic aneurysm. PLEURA: There is no pleural effusion. No pleural mass or thickening. AXILLA: No lymphadenopathy. UPPER ABDOMEN: Unremarkable. OSSEOUS STRUCTURES: No suspicious destructive bony lesions. Multilevel degenerative disc disease is present with calcification of the anterior longitudinal ligament. CT/CT chest wo con IMPRESSION: Continued some right lower lobe bronchial mucous plugging with end bronchial disease with tree-in-bud configuration. Resolution of previous regions of disease within the lingula and left lower lobe. Mild bronchiectasis. Stable mediastinal lymphadenopathy. Old granulomatous disease.
--- NOTE | ~2020-09-22 | CT_ITS ---
EXAMINATION: CT CHEST WITHOUT CONTRAST CLINICAL INFORMATION: re-eval of fungal pna, mucous plugging COMPARISON: CT chest September 22, 2020 TECHNIQUE: Multidetector volumetric CT imaging of the chest was done. Axial MIP volume rendering provided. Sagittal and coronal reformatted images were obtained. This CT examination was performed using dose optimization techniques as appropriate, variously including the following: *Automated exposure control *Adjustment of mA and/or kV according to patient size (this includes techniques or standardized protocols for targeted exams where dose is matched to indication/reason for exam; i.e. extremities or head) *Use of iterative reconstruction technique DLP: 176 mGy-cm FINDINGS: LUNGS: There is improvement in the mucous plugging and medial segment of right lower lobe since the prior CT chest September 22, 2020. The surrounding airspace disease in this segment lung has improved as well. There are still fine reticular opacities, tree-in-bud opacities and hazy alveolar opacity still remaining however. There is redemonstration of scattered nonocclusive mucous in the central bronchi throughout both lobes of lungs. Redemonstration of the mild bronchiectasis in lower lobes, right middle lobe, lingula. MEDIASTINUM: No mediastinal mass. There are shotty borderline lymph nodes in the pretracheal retrovascular space and AP window but no bulky lymphadenopathy. The heart size is normal. No pericardial effusion. Moderate volume of coronary calcifications. PLEURA: There is no pleural effusion. No pleural mass or thickening. AXILLA: No lymphadenopathy. UPPER ABDOMEN: Unremarkable. OSSEOUS STRUCTURES: Multilevel degenerative spondylosis spine. CT/CT chest wo con IMPRESSION: Improvement of the aeration of the bronchi in the right lower lobe. Improved aeration of surrounding lung at the right lung base. There are residual lung opacities still present.
--- NOTE | 2020-09-22 09:50 | ECG_ITS ---
Test Reason : SHORTNESS OF BREATH Blood Pressure : / mmHG Vent. Rate : 069 BPM Atrial Rate : 069 BPM P-R Int : 178 ms QRS Dur : 088 ms QT Int : 378 ms P-R-T Axes : 064 075 066 degrees QTc Int : 405 ms Normal sinus rhythm Normal ECG When compared with ECG of 04-AUG-2020 13:17, No significant change was found Referred By: Cyndie Bullock Electronically Signed By:JAK CHRISTENSEN MD
--- NOTE | 2020-09-22 10:00 | ED_ITS ---
HPI - SOB/Dyspnea General Chief Complaint: Dyspnea Stated Complaint: difficulty breathing, fungal infection in lungs Time Seen by Provider: 09/22/20 09:48 Source: patient Mode of arrival: ambulatory Limitations: no limitations History of Present Illness HPI Narrative: 59 y/o male with history of anklysing spondylitis on Remicade, ILD not on supplemental O2, and recently diagnosed fungal PNA with Kathy Albicans and Aspergillus on BAL 08/06 who presents from Pulmonology clinic with hypoxia and difficulty breathing. He had been on fluconazole and then switched to itraconazole in mid-August. He reports for the last 4 days he has been significantly more SOB and having a dry cough. He is unable to sleep at night be cause of this. He has been using his nebulizer treatments at home every 4 hours but he finds at the 2-3 hour ruben he is very SOB. He has no fever or chills. No abdominal pain, nausea or vomiting. MD elicited complaint: shortness of breath and cough Pertinent past history: pneumonia Onset (ago): day(s) (4) Context: recent illness Timing: constant Severity: severe Exacerbating factors: exertion, movement and coughing Relieving factors: oxygen and rest Associated symptoms: orthopnea and chest congestion Treatment prior to arrival: oxygen Related Data Home oxygen amount: none Home Medications Medication Instructions Recorded Confirmed aspirin 81 mg tablet,delayed 81 mg PO DAILY 03/10/20 09/22/20 release carbamazepine 200 mg tablet 600 mg PO BID 03/10/20 09/22/20 cetirizine 10 mg tablet 10 mg PO DAILY PRN 03/10/20 09/22/20 fluticasone propionate 50 2 spray INTRANASAL DAILY 03/10/20 09/22/20 mcg/actuation nasal spray,suspension (Flonase Allergy Relief) omeprazole 20 mg capsule,delayed 20 mg PO DAILY@0630 03/10/20 08/04/20 release simvastatin 20 mg tablet 20 mg PO BEDTIME 03/10/20 08/04/20 urea 15 gram oral powder packet 1 packet PO DAILY 08/04/20 09/22/20 Previous Rx's Medication Instructions Recorded cane #1 ea 08/03/20 albuterol sulfate 2.5 mg INHALATION QID #0 ml 08/09/20 benzonatate 100 mg capsule 200 mg PO TID PRN 14 Days #84 cap 08/09/20 itraconazole 100 mg capsule 200 mg PO BID 30 Days #120 cap 09/10/20 Allergies Allergy/AdvReac Type Severity Reaction Status Date / Time acetaminophen [From PERCOCET] Allergy Unknown VOMITING Verified 09/22/20 09:14 codeine [CODEINE] Allergy Unknown VOMITING Verified 09/22/20 09:14 oxycodone [From PERCOCET] Allergy Unknown VOMITING Verified 09/22/20 09:14 Review of Systems Constitutional: Constitutional: Denies chills, Denies fever(s) and Reports malaise Eyes: Eyes: Reports no additional eye complaints ENT: Denies dizziness, Denies nasal congestion and Denies sore throat Cardiovascular: Cardiovascular: Denies chest pain, Denies chest pain with activity, Denies edema, Denies leg edema, Reports dyspnea, Reports dyspnea on exertion and Reports orthopnea Respiratory: Respiratory: Denies chest congestion, Reports cough, Denies hemoptysis, Reports pain with cough, Reports dyspnea and Reports dyspnea on exertion Gastrointestinal: Gastrointestinal: Denies abdominal pain, Denies diarrhea, Denies nausea and Denies vomiting Genitourinary: Genitourinary: Denies dysuria Musculoskeletal: Musculoskeletal: Denies back pain and Reports myalgias Integumentary/Breasts: Skin/Breast: Denies rash Neurologic: Denies dizziness Hematologic/Lymphatic: Hematologic/Lymphatic: Denies easy bleeding and Denies easy bruising PMFSH Past Medical History Attestation statement: The following information was validated with the patient. Medical History Acute hyponatremia Ankylosing spondylitis Ankylosing spondylitis Bronchitis Chronic cough COPD (chronic obstructive pulmonary disease) COVID-19 vaccine series completed Dyspnea on exertion GERD (gastroesophageal reflux disease) Hyperlipidemia Organizing pneumonia Pneumonia Pulmonary nodules Thoracic outlet syndrome Social History Social History Household Members: None Housing: House Do you presently have visiting nurse or other home services: No Alcohol intake: never Patient Tobacco Use Status: Never used Tobacco Advance Directives: Yes Advance Directives on File: Yes Advance Directives Date on File: 07/29/20 service: No Current occupational status: employed Physical Exam Vital Signs: Vital Signs: Last Vital Signs Temp 98.3 F 09/22/20 12:31 Pulse 64 09/22/20 12:31 Resp 16 09/22/20 12:31 BP 129/50 L 09/22/20 12:31 Pulse Ox 92 09/22/20 12:31 Body Mass Index 23.1 Appearance: Alert. Oriented X3. No acute distress. Eyes: Pupils equal, round and reactive to light. ENT: Pharynx normal. Neck: Normal inspection. Neck supple. CVS: Normal heart rate and rhythm. Pulses normal. Respiratory: Moderate respiratory distress, dyspneic with speaking. tachypneic mid 20's. Breath sounds coarse throughout. Abdomen: Soft and nontender. +BS x4 Skin: Skin warm and dry. Normal skin color. Normal skin turgor. No rashes. Extremities: No lower extremity edema. Neuro: Oriented X 3. No motor deficit. No sensory deficit. Course Course Course Narrative: 59 y/o male with history of Aspergillus & Kathy PNA July 18 failing outpatient itraconazole therapy with 4 days of SOB and [place]. Referred to the ER from Dr. Chapman. On 1L NC with SpO2 94%. Diffusely coarse throughout and dyspneic. Will give neb treatment now, start steroiods, Zosyn for possible superimposed bacterial PNA as well as IV anti-fungal. Per pharmacy needs to be approved by ID - Dr. Pcae has been texted, awaiting recs. Labs, EKG, CXR, COVID and med rec ordered. Patient will require admission. Reevaluation(s) Reevaluation #1: Patient is feeling better with antitussive, neb treatment and s teroid. Zosyn given. Awaiting recs from Pharmacy and Dr. Pace re: antifungal. Voriconzole interacts with carbamazepine so may need to use capisfungin instead. Reevaluation #2: CT scan reviewed. He remains on 2L NC but is feeling better. Awating recs from ID for antifungal. Patient to be admitted. Dr. Syed made aware via TT. Consultations Consultation #1: PULM Consultation #2: ID MDM - SOB/Dyspnea Lab Data Attestation: I reviewed the patient's lab results. Result diagrams: 09/22/20 10:17 09/22/20 10:17 Labs: Lab Results 09/22/20 09/22/20 09/22/20 Range/Units 10:16 10:16 10:16 WBC (4.8-10.8) X10*3/uL RBC (4.60-5.80) X10*6/uL Hgb (14.0-18.0) g/dl Hct (42-52) % MCV (80-98) fL MCH (27.0-33.0) pg MCHC (31.0-36.0) g/dl RDW (11.0-16.0) % Plt Count (160-400) X10*3/uL MPV (9.4-12.4) fL Immature Gran % (Auto) (0.0-0.4) % Neut % (Auto) (45-73) % Lymph % (Auto) (20-40) % [place] % (Auto) (2-11) % Eos % (Auto) (0-4) % Baso % (Auto) (0-2) % Lymph # (Auto) (1.2-4.9) X10*3/uL [place] # (Auto) (0.1-1.2) X10*3/uL Eos # (Auto) (0.0-0.4) X10*3/uL Baso # (Auto) (0.0-0.2) X10*3/uL Abs Immat Gran (auto) (0.00-0.03) X10*3/uL Absolute Neuts (auto) (2.0-8.3) X10*3/uL Absolute Nucleated RBC (0.0-0.012) X10*3/uL Nucleated RBC % (auto) (0.0-0.2) /100WBC PT 12.2 (9.9-13.0) SEC INR 1.1 (0.9-1.1) APTT 30.8 (24.1-38.0) SEC Sodium (135-145) mmol/L Potassium (3.3-5.1) mmol/L Chloride (96-108) mmol/L Carbon Dioxide (22-29) mmol/L Anion Gap (12-20) BUN (9-16) mg/dL Creatinine (0.5-1.4) mg/dL Estim Creat Clear Calc Estimated GFR Random Glucose (60-115) mg/dL Lactic Acid (0.5-2.0) mmol/L Calcium (8.4-10.2) mg/dL Magnesium 1.9 (1.6-2.6) mg/dL Total Bilirubin 0.8 (0.0-1.0) mg/dL Direct Bilirubin 0.3 (0.0-0.5) mg/dL AST 24 (5-37) U/L ALT 21 (0-40) U/L Alkaline Phosphatase 79 (39-117) U/L Troponin I High Sens 4.5 (<3.5-35.0) ng/L C-Reactive Protein 4.39 H (< or = 0.50) mg/dL B-Natriuretic Peptide 21 (<100) pg/mL Total Protein 6.8 (6.5-8.0) g/dL Albumin 4.2 (3.5-5.0) g/dL Procalcitonin ng/mL Urine Color Urine Appearance Urine pH (5.0-8.0) Ur Specific [place] (1.005-1.025) Urine Protein (NEG-TRACE) MG/DL Urine Glucose (UA) (NEG) MG/DL Urine Ketones (NEG) MG/DL Urine Blood (NEG) Urine Nitrite (NEG) Ur Leukocyte Esterase (NEG) Urine RBC (0) /HPF Urine WBC (0-4) /HPF Ur Squamous Epith Cells /LPF Amorphous Sediment /LPF Urine Bacteria /LPF Coronavirus (PCR) (Negative) Influenza Type A (PCR) (Negative) Influenza Type B (PCR) (Negative) RSV RNA Qual (PCR) (Negative) 09/22/20 09/22/20 09/22/20 Range/Units 10:16 10:16 10:17 WBC 8.3 (4.8-10.8) X10*3/uL RBC 3.93 L (4.60-5.80) X10*6/uL Hgb 13.1 L (14.0-18.0) g/dl Hct 37.6 L (42-52) % MCV 95.7 (80-98) fL MCH 33.3 H (27.0-33.0) pg MCHC 34.8 (31.0-36.0) g/dl RDW 12.0 (11.0-16.0) % Plt Count 199 (160-400) X10*3/uL MPV 8.3 L (9.4-12.4) fL Immature Gran % (Auto) 0.4 (0.0-0.4) % Neut % (Auto) 61.7 (45-73) % Lymph % (Auto) 10.0 L (20-40) % [place] % (Auto) 8.3 (2-11) % Eos % (Auto) 18.8 H (0-4) % Baso % (Auto) 0.8 (0-2) % Lymph # (Auto) 0.8 L (1.2-4.9) X10*3/uL [place] # (Auto) 0.7 (0.1-1.2) X10*3/uL Eos # (Auto) 1.6 H (0.0-0.4) X10*3/uL Baso # (Auto) 0.1 (0.0-0.2) X10*3/uL Abs Immat Gran (auto) 0.03 (0.00-0.03) X10*3/uL Absolute Neuts (auto) 5.1 (2.0-8.3) X10*3/uL Absolute Nucleated RBC 0.000 (0.0-0.012) X10*3/uL Nucleated RBC % (auto) 0.0 (0.0-0.2) /100WBC PT (9.9-13.0) SEC INR (0.9-1.1) APTT (24.1-38.0) SEC Sodium (135-145) mmol/L Potassium (3.3-5.1) mmol/L Chloride (96-108) mmol/L Carbon Dioxide (22-29) mmol/L Anion Gap (12-20) BUN (9-16) mg/dL Creatinine (0.5-1.4) mg/dL Estim Creat Clear Calc Estimated GFR Random Glucose (60-115) mg/dL Lactic Acid 1.4 (0.5-2.0) mmol/L Calcium (8.4-10.2) mg/dL Magnesium (1.6-2.6) mg/dL Total Bilirubin (0.0-1.0) mg/dL Direct Bilirubin (0.0-0.5) mg/dL AST (5-37) U/L ALT (0-40) U/L Alkaline Phosphatase (39-117) U/L Troponin I High Sens (<3.5-35.0) ng/L C-Reactive Protein (< or = 0.50) mg/dL B-Natriuretic Peptide (<100) pg/mL Total Protein (6.5-8.0) g/dL Albumin (3.5-5.0) g/dL Procalcitonin 0.03 ng/mL Urine Color Urine Appearance Urine pH (5.0-8.0) Ur Specific [place] (1.005-1.025) Urine Protein (NEG-TRACE) MG/DL Urine Glucose (UA) (NEG) MG/DL Urine Ketones (NEG) MG/DL Urine Blood (NEG) Urine Nitrite (NEG) Ur Leukocyte Esterase (NEG) Urine RBC (0) /HPF Urine WBC (0-4) /HPF Ur Squamous Epith Cells /LPF Amorphous Sediment /LPF Urine Bacteria /LPF Coronavirus (PCR) (Negative) Influenza Type A (PCR) (Negative) Influenza Type B (PCR) (Negative) RSV RNA Qual (PCR) (Negative) 09/22/20 09/22/20 09/22/20 Range/Units 10:17 10:17 12:29 WBC (4.8-10.8) X10*3/uL RBC (4.60-5.80) X10*6/uL Hgb (14.0-18.0) g/dl Hct (42-52) % MCV (80-98) fL MCH (27.0-33.0) pg MCHC (31.0-36.0) g/dl RDW (11.0-16.0) % Plt Count (160-400) X10*3/uL MPV (9.4-12.4) fL Immature Gran % (Auto) (0.0-0.4) % Neut % (Auto) (45-73) % Lymph % (Auto) (20-40) % [place] % (Auto) (2-11) % Eos % (Auto) (0-4) % Baso % (Auto) (0-2) % Lymph # (Auto) (1.2-4.9) X10*3/uL [place] # (Auto) (0.1-1.2) X10*3/uL Eos # (Auto) (0.0-0.4) X10*3/uL Baso # (Auto) (0.0-0.2) X10*3/uL Abs Immat Gran (auto) (0.00-0.03) X10*3/uL Absolute Neuts (auto) (2.0-8.3) X10*3/uL Absolute Nucleated RBC (0.0-0.012) X10*3/uL Nucleated RBC % (auto) (0.0-0.2) /100WBC PT (9.9-13.0) SEC INR (0.9-1.1) APTT (24.1-38.0) SEC Sodium 130 L (135-145) mmol/L Potassium 4.6 (3.3-5.1) mmol/L Chloride 98 (96-108) mmol/L Carbon Dioxide 24 (22-29) mmol/L Anion Gap 13 (12-20) BUN 10 (9-16) mg/dL Creatinine 0.65 (0.5-1.4) mg/dL Estim Creat Clear Calc 141.3 Estimated GFR > 60 Random Glucose 92 (60-115) mg/dL Lactic Acid (0.5-2.0) mmol/L Calcium 9.2 (8.4-10.2) mg/dL Magnesium (1.6-2.6) mg/dL Total Bilirubin (0.0-1.0) mg/dL Direct Bilirubin (0.0-0.5) mg/dL AST (5-37) U/L ALT (0-40) U/L Alkaline Phosphatase (39-117) U/L Troponin I High Sens (<3.5-35.0) ng/L C-Reactive Protein (< or = 0.50) mg/dL B-Natriuretic Peptide (<100) pg/mL Total Protein (6.5-8.0) g/dL Albumin (3.5-5.0) g/dL Procalcitonin ng/mL Urine Color YELLOW Urine Appearance CLEAR Urine pH 7.5 (5.0-8.0) Ur Specific [place] 1.015 (1.005-1.025) Urine Protein NEG (NEG-TRACE) MG/DL Urine Glucose (UA) NEG (NEG) MG/DL Urine Ketones NEG (NEG) MG/DL Urine Blood 1+ H (NEG) Urine Nitrite NEG (NEG) Ur Leukocyte Esterase NEG (NEG) Urine RBC 5-9 H (0) /HPF Urine WBC 0 (0-4) /HPF Ur Squamous Epith Cells NONE /LPF Amorphous Sediment 1+ /LPF Urine Bacteria NONE /LPF Coronavirus (PCR) NEGATIVE (Negative) Influenza Type A (PCR) NEGATIVE (Negative) Influenza Type B (PCR) NEGATIVE (Negative) RSV RNA Qual (PCR) NEGATIVE (Negative) ECG Data Attestation: I personally reviewed and interpreted this ECG as follows: ECG interpretation date: 09/22/20 ECG interpretation time: 10:52 Prior ECG tracings: available for review Interpretation: normal sinus rhythm, HR 69 bpm, normal [place] interval, normal QTc, peaked T waved V3-V6. No ST segment elevations or depressions. Critical Care Time Critical Care Time Critical Care Time: Yes Total Critical Care Time: 45 Attestation: I have personally provided critical care time exclusive of time spent on separately billable procedures. Time includes review of lab data, radiology results, discussion with consultants, and monitoring for potential decompensation. Intervention performed as documented. Discharge Plan Discharge Clinical Impression: Fungal pneumonia Acute respiratory failure Qualifiers: Respiratory failure complication: hypoxia Qualified Code(s): J96.01 - Acute respiratory failure with hypoxia Patient Disposition: Admitted As Inpatient
[2020-09-22] MEDS: Albuterol Sulfate (0.083%) 2.5 MG/3 ML VIAL.NEB 10 MG INHALE (10:21)
[2020-09-22 10:24] LABS: MANUAL DIFF FLAG NO
[2020-09-22 10:25] LABS: Basophils Absolute Auto 0.1 X10*3/uL (0.0-0.2); Basophils Percent Auto 0.8 % (0-2); Eosinophils Absolute Auto 1.6 X10*3/uL (0.0-0.4); Eosinophils Percent Auto 18.8 % (0-4); Hematocrit 37.6 % (42-52); Hemoglobin 13.1 g/dl (14.0-18.0); Imm Gran Abs Auto 0.03 X10*3/uL (0.00-0.03); Imm Gran Pct Auto 0.4 % (0.0-0.4); Lymphocytes Absolute Auto 0.8 X10*3/uL (1.2-4.9); Mean Corpuscular HGB Conc 34.8 g/dl (31.0-36.0); Mean Corpuscular Hemoglobin 33.3 pg (27.0-33.0); Mean Corpuscular Volume 95.7 fL (80-98); Mean Platelet Volume 8.3 fL (9.4-12.4); Monocytes Absolute Auto 0.7 X10*3/uL (0.1-1.2); Monocytes Percent Auto 8.3 % (2-11); Neutrophils Absolute Auto 5.1 X10*3/uL (2.0-8.3); Neutrophils Percent Auto 61.7 % (45-73); Platelet Count 199 X10*3/uL (160-400); Red Blood Count 3.93 X10*6/uL (4.60-5.80); White Blood Count 8.3 X10*3/uL (4.8-10.8)
[2020-09-22 10:35] LABS: INTERNATIONAL NORM RATIO 1.1 (0.9-1.1); Prothrombin Time 12.2 SEC (9.9-13.0)
[2020-09-22] MEDS: Piperacillin Sodium/Tazobactam 4.5 GM in 0.9 % Sodium Chloride 100 ML IV (10:36)
[2020-09-22] MEDS: guaiFEN/Codeine SF 200/20/10ML 10 ML LIQUID PO (10:36)
[2020-09-22] MEDS: methylPREDNISolone Sod Succ 125 MG/2 ML VIAL IVPUSH (10:36)
[2020-09-22 10:37] LABS: Partial Thromboplastin Time 30.8 SEC (24.1-38.0)
--- NOTE | 2020-09-22 10:56 | PHA.MEDREC ---
Pharmacy Consult ? Medication Reconciliation Pharmacy has completed the medication reconciliation. Patient reports he stopped taking omeprazole and simvastatin once he was put on itraconazole due to the interaction. He will be restarting it once he is off antifungals. Celsa Alexandre, MukulD
[2020-09-22 11:04] LABS: Influenza A PCR NEGATIVE (Negative); Influenza B PCR NEGATIVE (Negative); Resp Syncy Virus RNA Qual PCR NEGATIVE (Negative); SARS COV2 PCR INHOUSE NEGATIVE (Negative)
[2020-09-22 11:21] LABS: Lactic Acid 1.4 mmol/L (0.5-2.0)
[2020-09-22 11:24] LABS: B Type Natriuretic Peptide 21 pg/mL (<100); Troponin-I High Sensitivity 4.5 ng/L (<3.5-35.0)
[2020-09-22 11:33] LABS: Anion Gap 13 (12-20); Blood Urea Nitrogen 10 mg/dL (9-16); Calcium 9.2 mg/dL (8.4-10.2); Carbon Dioxide 24 mmol/L (22-29); Chloride 98 mmol/L (96-108); Creatinine Clr Calc Pharmacy 141.3; Estimated Glomerular Filt Rate > 60; Glucose Random 92 mg/dL (60-115); Potassium 4.6 mmol/L (3.3-5.1); Sodium 130 mmol/L (135-145)
[2020-09-22 11:37] LABS: Alanine Aminotransferase 21 U/L (0-40); Albumin Level 4.2 g/dL (3.5-5.0); Alkaline Phosphatase 79 U/L (39-117); Aspartate Amino Transferase 24 U/L (5-37); Bilirubin Direct 0.3 mg/dL (0.0-0.5); Bilirubin Total 0.8 mg/dL (0.0-1.0); C Reactive Protein 4.39 mg/dL (< or = 0.50); Magnesium 1.9 mg/dL (1.6-2.6); Total Protein 6.8 g/dL (6.5-8.0)
[2020-09-22 12:06] LABS: Procalcitonin 0.03 ng/mL
[2020-09-22 12:39] LABS: Glucose Urine UA NEG (NEG); Leukocyte Esterase Urine NEG (NEG); Nitrite Urine NEG (NEG); PH 7.5 (5.0-8.0); Specific Gravity - Urine 1.015 (1.005-1.025); UACC Culture Trigger NO; Urine Blood 1+ (NEG); Urine Ketones NEG (NEG); Urine Protein NEG (NEG-TRACE)
[2020-09-22 12:45] LABS: Appearance Urine CLEAR; Color Urine YELLOW
[2020-09-22 12:53] LABS: Amorphous Sediment Urine 1+ /LPF; WBC Urine 0 /HPF (0-4)
--- NOTE | 2020-09-22 15:27 | P.HPHOSP_ITS ---
History of Present Illness Date of Service: 09/22/20 Chief Complaint: shortness of breath 59-year-old gentleman, lifetime nonsmoker, with underlying history of ankylosing spondylitis followed by Rheumatology now on Remicade, history of organizing pneumonia with chronic productive cough, and dyspnea on exertion, however not on home O2.? Patient has recently been hospitalized at [facility] and during that stay undwent bronchoscopy on 08/06 ta showed inflammed bronchial mucosa with copious secretions.? BAL sent- routine/fungal/AFB cultures? grew filamentous fungus and yeast therefore patient started on Diflucan 200 mg. His symptoms of cough and dyspnea have improved significantly on fluconazole and he has been switched to itraconazole 2 weeks prior for anti aspergillosis therapy.? Unfortunately over the last several weeks his symptoms have been getting worse including dyspnea and cough intermittently productive of yellowish sputum.? He was seen in the pulmonary clinic today and was sent to the ED for IV Abx and antifungal meds. He is afebrile, WBC normal. CXR Continued some right lower lobe bronchial mucous plugging with end bronchial disease with tree-in-bud configuration.? Resolution of previous regions of disease within the lingula and left lower lobe. Mild bronchiectasis. ? Review of Systems Review of Systems: Gen: no fever Resp: shortness of breah CV: no chest, + HAWTHORNE, no leg edema GI: No n/v, no abd pain Neuro: No confusion [facility] Medical History Acute hyponatremia Ankylosing spondylitis Ankylosing spondylitis Bronchitis Chronic cough COPD (chronic obstructive pulmonary disease) COVID-19 vaccine series completed Dyspnea on exertion GERD (gastroesophageal reflux disease) Hyperlipidemia Organizing pneumonia Pneumonia Pulmonary nodules Thoracic outlet syndrome Social History Household Members: None Housing: House Do you presently have visiting nurse or other home services: No Alcohol intake: never Patient Tobacco Use Status: Never used Tobacco Advance Directives: Yes Advance Directives on File: Yes Advance Directives Date on File: 07/29/20 service: No Current occupational status: employed Meds Allergies Allergy/AdvReac Type Severity Reaction Status Date / Time acetaminophen [From PERCOCET] Allergy Unknown VOMITING Verified 09/22/20 09:14 codeine [CODEINE] Allergy Unknown VOMITING Verified 09/22/20 09:14 oxycodone [From PERCOCET] Allergy Unknown VOMITING Verified 09/22/20 09:14 Active Medications: Current Medications Generic Name Dose Route Start Last Admin Trade Name Freq PRN Reason Stop Dose Admin Voriconazole 490 mg/ Sodium 250 mls @ 125 mls/hr 09/22/20 15:00 Chloride IV 09/23/20 04:59 Q12H KAVEH Voriconazole 325 mg/ Sodium 100 mls @ 50 mls/hr 09/23/20 15:00 Chloride IV Q12H [facility] Pharmacy Consult 1 each 09/22/20 09:56 Consult Rx Perform Med Rec MISCELLANE ONCE PRN Consult order Home Medications Medication Instructions Recorded Confirmed Last Taken Type aspirin 81 mg tablet,delayed 81 mg PO DAILY 03/10/20 09/22/20 09/22/20 History release carbamazepine 200 mg tablet 600 mg PO BID 03/10/20 09/22/20 09/22/20 History cetirizine 10 mg tablet 10 mg PO DAILY PRN 03/10/20 09/22/20 09/22/20 History fluticasone propionate 50 2 spray INTRANASAL DAILY 03/10/20 09/22/20 09/22/20 History mcg/actuation nasal spray,suspension (Flonase Allergy Relief) omeprazole 20 mg capsule,delayed 20 mg PO DAILY@0630 03/10/20 08/04/20 07/29/20 History release simvastatin 20 mg tablet 20 mg PO BEDTIME 03/10/20 08/04/20 07/28/20 History urea 15 gram oral powder packet 1 packet PO DAILY 08/04/20 09/22/20 09/22/20 History Physical Exam Vital Signs and Narrative: Vital Signs: Last Vital Signs Temp 98.5 F 09/22/20 14:13 Pulse 65 09/22/20 14:13 Resp 16 09/22/20 14:13 BP 122/57 L 09/22/20 14:13 Pulse Ox 94 09/22/20 14:13 Body Mass Index 23.1 Results Labs CBC and Chem 7: 09/22/20 10:17 09/22/20 10:17 Labs: Laboratory Results - last 24 hr 09/22/20 09/22/20 09/22/20 10:16 10:16 10:16 MCV MCH MCHC RDW Plt Count MPV Immature Gran % (Auto) Neut % (Auto) Lymph % (Auto) [place] % (Auto) Eos % (Auto) Baso % (Auto) Lymph # (Auto) [place] # (Auto) Eos # (Auto) Baso # (Auto) Abs Immat Gran (auto) Absolute Neuts (auto) Absolute Nucleated RBC Nucleated RBC % (auto) PT 12.2 INR 1.1 APTT 30.8 Anion Gap Estim Creat Clear Calc Estimated GFR Random Glucose Lactic Acid Calcium Magnesium 1.9 Total Bilirubin 0.8 Direct Bilirubin 0.3 AST 24 ALT 21 Alkaline Phosphatase 79 Troponin I High Sens 4.5 C-Reactive Protein 4.39 H B-Natriuretic Peptide 21 Total Protein 6.8 Albumin 4.2 Procalcitonin Urine Color Urine Appearance Urine pH Ur Specific [place] Urine Protein Urine Glucose (UA) Urine Ketones Urine Blood Urine Nitrite Ur Leukocyte Esterase Urine RBC Urine WBC Ur Squamous Epith Cells Amorphous Sediment Urine Bacteria Coronavirus (PCR) Influenza Type A (PCR) Influenza Type B (PCR) RSV RNA Qual (PCR) 09/22/20 09/22/20 09/22/20 10:16 10:16 10:17 MCV 95.7 MCH 33.3 H MCHC 34.8 RDW 12.0 Plt Count 199 MPV 8.3 L Immature Gran % (Auto) 0.4 Neut % (Auto) 61.7 Lymph % (Auto) 10.0 L [place] % (Auto) 8.3 Eos % (Auto) 18.8 H Baso % (Auto) 0.8 Lymph # (Auto) 0.8 L [place] # (Auto) 0.7 Eos # (Auto) 1.6 H Baso # (Auto) 0.1 Abs Immat Gran (auto) 0.03 Absolute Neuts (auto) 5.1 Absolute Nucleated RBC 0.000 Nucleated RBC % (auto) 0.0 PT INR APTT Anion Gap Estim Creat Clear Calc Estimated GFR Random Glucose Lactic Acid 1.4 Calcium Magnesium Total Bilirubin Direct Bilirubin AST ALT Alkaline Phosphatase Troponin I High Sens C-Reactive Protein B-Natriuretic Peptide Total Protein Albumin Procalcitonin 0.03 Urine Color Urine Appearance Urine pH Ur Specific [place] Urine Protein Urine Glucose (UA) Urine Ketones Urine Blood Urine Nitrite Ur Leukocyte Esterase Urine RBC Urine WBC Ur Squamous Epith Cells Amorphous Sediment Urine Bacteria Coronavirus (PCR) Influenza Type A (PCR) Influenza Type B (PCR) RSV RNA Qual (PCR) 09/22/20 09/22/20 09/22/20 10:17 10:17 12:29 MCV MCH MCHC RDW Plt Count MPV Immature Gran % (Auto) Neut % (Auto) Lymph % (Auto) [place] % (Auto) Eos % (Auto) Baso % (Auto) Lymph # (Auto) [place] # (Auto) Eos # (Auto) Baso # (Auto) Abs Immat Gran (auto) Absolute Neuts (auto) Absolute Nucleated RBC Nucleated RBC % (auto) PT INR APTT Anion Gap 13 Estim Creat Clear Calc 141.3 Estimated GFR > 60 Random Glucose 92 Lactic Acid Calcium 9.2 Magnesium Total Bilirubin Direct Bilirubin AST ALT Alkaline Phosphatase Troponin I High Sens C-Reactive Protein B-Natriuretic Peptide Total Protein Albumin Procalcitonin Urine Color YELLOW Urine Appearance CLEAR Urine pH 7.5 Ur Specific [place] 1.015 Urine Protein NEG Urine Glucose (UA) NEG Urine Ketones NEG Urine Blood 1+ H Urine Nitrite NEG Ur Leukocyte Esterase NEG Urine RBC 5-9 H Urine WBC 0 Ur Squamous Epith Cells NONE Amorphous Sediment 1+ Urine Bacteria NONE Coronavirus (PCR) NEGATIVE Influenza Type A (PCR) NEGATIVE Influenza Type B (PCR) NEGATIVE RSV RNA Qual (PCR) NEGATIVE Imaging Radiologist's Impressions: Impressions Chest CT 09/22/20 10:00 IMPRESSION: Continued some right lower lobe bronchial mucous plugging with end bronchial disease with tree-in-bud configuration. Resolution of previous regions of disease within the lingula and left lower lobe. Mild bronchiectasis. Stable mediastinal lymphadenopathy. Old granulomatous disease. Assessment and Plan (1) Fungal pneumonia: Status: Acute (2) ILD (interstitial lung disease): Status: Acute (3) Ankylosing spondylitis: Status: Acute (4) Acute respiratory failure: Qualifiers: Respiratory failure complication: hypoxia Qualified Code(s): J96.01 - Acute respiratory failure with hypoxia Status: Acute 59-year-old gentleman, lifetime nonsmoker, with underlying history of ankylosing spondylitis followed by Rheumatology now on Remicade, history of organizing pneumonia with chronic productive cough, and dyspnea on exertion, however not on home O2 being readmitted for organizing pneumonia, 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 Supplemental oxygen. continue all chronic meds, Lovenox for DVT prophylaxis. Quality Stroke Does the patient have a stroke diagnosis?: No VTE Prior VTE?: No VTE Risk Level:: Medical - moderate - high VTE Device Contraindication: N/A - Device Ordered VTE Drug Contraindication: N/A - Med Ordered
[2020-09-22] MEDS: Albuterol/Iprat 2.5/0.5MG 3 ML AMPUL.NEB INHALE (20:07)
--- NOTE | 2020-09-22 21:04 | MHC.CM.PN ---
CM met with admitted patient, room 370. A&Ox3. Recently hospitalized in July with fungal pneumonia. Lives alone, uses a cane, and had [facility] services until last week. HCP is on file. HCP/brother Mike Hammer ([phone]). personnel counselor is cousin, Kareen Hammer ([phone]). Pt is fully vaccinated with Moderna Covid Vaccine. D/C plan is home. [facility] services if necessary. Referral placed to follow. Pt may need respiratory evaluation prior to d/c home. Transportation by family. CM to follow for d/c needs.
[2020-09-22] MEDS: guaiFENesin DM 100/10/5 ML 5 ML SYRUP PO (22:38)
[2020-09-22] MEDS: Melatonin 3 MG TABLET 6 MG PO (22:38)
[2020-09-22] MEDS: Acetaminophen 325 MG TABLET 650 MG PO (22:39)
[2020-09-23] VITALS (10 sets, daily range): BP systolic 115–160; BP diastolic 43–65; PULSE 58–65; RESP 14–24; TEMP 36.3–36.7; O2SAT 94–99
[2020-09-23] MEDS: Benzonatate 100 MG CAPSULE PO (04:47)
[2020-09-23] MEDS: guaiFENesin DM 100/10/5 ML 5 ML SYRUP PO ×3 (04:47→21:38)
[2020-09-23] MEDS: Albuterol/Iprat 2.5/0.5MG 3 ML AMPUL.NEB INHALE (05:07)
[2020-09-23] MEDS: Lidocaine 4 % Patch ADH..PATCH 1 PATCH TRANSDERMA (07:28)
--- NOTE | 2020-09-23 08:42 | HO.PM.IMPN ---
Subjective Subjective Date of Service: 09/23/20 Interval History: F/u on fungal pneumonia, feels better with oxygen. Persistent cough. Review of Systems Gen: no fever Resp: shortness of breah CV: no chest, + HAWTHORNE, no leg edema GI: No n/v, no abd pain Neuro: No confusion Physical Exam Vital Signs: Vital Signs: Last Vital Signs Temp 97.3 F 09/23/20 07:15 Pulse 58 09/23/20 07:15 Resp 24 H 09/23/20 07:15 BP 142/55 H 09/23/20 07:15 Pulse Ox 95 09/23/20 07:15 Body Mass Index 23.1 General: AO X 3, no acute distress Resp: CTA bilateral CVS: S1,S2,RRR GI: +BS, NT, no distention Skin: No rash Neuro: motor grossly intact Psych: appropriate affect Objective Data Current Medications Generic Name Dose Route Start Last Admin Trade Name Freq PRN Reason Stop Dose Admin Acetaminophen 650 mg 09/22/20 18:21 09/22/20 22:39 Acetaminophen 325 Mg Tablet PO 650 mg Q6H PRN Administration Pain, Mild (Pain Scale 1-3) Albuterol/Ipratropium 3 ml 09/23/20 04:07 09/23/20 05:07 Albuterol/Iprat 2.5/0.5mg 3 Ml Ampul.Neb INHALE 3 ml RQ4H PRN Administration Shortness of Breath/Wheezing Benzonatate 100 mg 09/23/20 04:07 09/23/20 04:47 Benzonatate 100 Mg Capsule PO 100 mg TID PRN Administration Cough Guaifenesin/Dextromethorphan 5 ml 09/22/20 22:19 09/23/20 04:47 Guaifenesin Dm 100/10/5 Ml 5 Ml Syrup PO 5 ml Q6H PRN Administration Cough Voriconazole 325 mg/ Sodium 100 mls @ 50 mls/hr 09/23/20 15:00 Chloride IV Q12H KAVEH Lidocaine 1 patch 09/23/20 09:00 09/23/20 07:28 Lidocaine 4 % Patch Adh..Patch TRANSDERMA 1 patch DAILY KAVEH Administration Protocol Melatonin 6 mg 09/22/20 18:21 09/22/20 22:38 Melatonin 3 Mg Tablet PO 6 mg BEDTIME PRN Administration Insomnia Pharmacy Consult 1 each 09/22/20 09:56 Consult Rx Perform Med Rec MISCELLANE ONCE PRN Consult order Labs CBC & Chem 7: 09/22/20 10:17 09/22/20 10:17 Labs: Laboratory Results - last 24 hr 09/22/20 09/22/20 09/22/20 10:16 10:16 10:16 MCV MCH MCHC RDW Plt Count MPV Immature Gran % (Auto) Neut % (Auto) Lymph % (Auto) [place] % (Auto) Eos % (Auto) Baso % (Auto) Lymph # (Auto) [place] # (Auto) Eos # (Auto) Baso # (Auto) Abs Immat Gran (auto) Absolute Neuts (auto) Absolute Nucleated RBC Nucleated RBC % (auto) PT 12.2 INR 1.1 APTT 30.8 Anion Gap Estim Creat Clear Calc Estimated GFR Random Glucose Lactic Acid Calcium Magnesium 1.9 Total Bilirubin 0.8 Direct Bilirubin 0.3 AST 24 ALT 21 Alkaline Phosphatase 79 Troponin I High Sens 4.5 C-Reactive Protein 4.39 H B-Natriuretic Peptide 21 Total Protein 6.8 Albumin 4.2 Procalcitonin Urine Color Urine Appearance Urine pH Ur Specific [place] Urine Protein Urine Glucose (UA) Urine Ketones Urine Blood Urine Nitrite Ur Leukocyte Esterase Urine RBC Urine WBC Ur Squamous Epith Cells Amorphous Sediment Urine Bacteria Coronavirus (PCR) Influenza Type A (PCR) Influenza Type B (PCR) RSV RNA Qual (PCR) 09/22/20 09/22/20 09/22/20 10:16 10:16 10:17 MCV 95.7 MCH 33.3 H MCHC 34.8 RDW 12.0 Plt Count 199 MPV 8.3 L Immature Gran % (Auto) 0.4 Neut % (Auto) 61.7 Lymph % (Auto) 10.0 L [place] % (Auto) 8.3 Eos % (Auto) 18.8 H Baso % (Auto) 0.8 Lymph # (Auto) 0.8 L [place] # (Auto) 0.7 Eos # (Auto) 1.6 H Baso # (Auto) 0.1 Abs Immat Gran (auto) 0.03 Absolute Neuts (auto) 5.1 Absolute Nucleated RBC 0.000 Nucleated RBC % (auto) 0.0 PT INR APTT Anion Gap Estim Creat Clear Calc Estimated GFR Random Glucose Lactic Acid 1.4 Calcium Magnesium Total Bilirubin Direct Bilirubin AST ALT Alkaline Phosphatase Troponin I High Sens C-Reactive Protein B-Natriuretic Peptide Total Protein Albumin Procalcitonin 0.03 Urine Color Urine Appearance Urine pH Ur Specific [place] Urine Protein Urine Glucose (UA) Urine Ketones Urine Blood Urine Nitrite Ur Leukocyte Esterase Urine RBC Urine WBC Ur Squamous Epith Cells Amorphous Sediment Urine Bacteria Coronavirus (PCR) Influenza Type A (PCR) Influenza Type B (PCR) RSV RNA Qual (PCR) 09/22/20 09/22/20 09/22/20 10:17 10:17 12:29 MCV MCH MCHC RDW Plt Count MPV Immature Gran % (Auto) Neut % (Auto) Lymph % (Auto) [place] % (Auto) Eos % (Auto) Baso % (Auto) Lymph # (Auto) [place] # (Auto) Eos # (Auto) Baso # (Auto) Abs Immat Gran (auto) Absolute Neuts (auto) Absolute Nucleated RBC Nucleated RBC % (auto) PT INR APTT Anion Gap 13 Estim Creat Clear Calc 141.3 Estimated GFR > 60 Random Glucose 92 Lactic Acid Calcium 9.2 Magnesium Total Bilirubin Direct Bilirubin AST ALT Alkaline Phosphatase Troponin I High Sens C-Reactive Protein B-Natriuretic Peptide Total Protein Albumin Procalcitonin Urine Color YELLOW Urine Appearance CLEAR Urine pH 7.5 Ur Specific [place] 1.015 Urine Protein NEG Urine Glucose (UA) NEG Urine Ketones NEG Urine Blood 1+ H Urine Nitrite NEG Ur Leukocyte Esterase NEG Urine RBC 5-9 H Urine WBC 0 Ur Squamous Epith Cells NONE Amorphous Sediment 1+ Urine Bacteria NONE Coronavirus (PCR) NEGATIVE Influenza Type A (PCR) NEGATIVE Influenza Type B (PCR) NEGATIVE RSV RNA Qual (PCR) NEGATIVE Assessment and Plan (1) Acute respiratory failure: Status: Acute (2) Fungal pneumonia: Status: Acute Assessment and Plan: ?59-year-old gentleman, lifetime nonsmoker, with underlying history of ankylosing spondylitis () followed by Rheumatology now on Remicade, history of organizing pneumonia with? 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 Supplemental oxygen. #Chronic Hyponatremia--stable # - on infliximab as outpatient- sees Dr Sena at [facility] # thoracic outlet syndrome - continue carbamazepine # GERD - continue PPI continue all chronic meds, Lovenox for DVT prophylaxis. Quality Stroke Does the patient have a stroke diagnosis?: No VTE Prior VTE?: No VTE Risk Level:: Medical - moderate - high VTE Device Contraindication: N/A - Device Ordered VTE Drug Contraindication: N/A - Med Ordered
[2020-09-23] MEDS: Aspirin Enteric Coated 81 MG TABLET.DR PO (09:44)
[2020-09-23] MEDS: Enoxaparin Sodium 40 MG/0.4 ML SYRINGE SUBCUT (09:44)
[2020-09-23] MEDS: Urea 15 GM POWDER PO (09:47)
[2020-09-23] MEDS: Albuterol Sulfate (0.083%) 2.5 MG/3 ML VIAL.NEB INHALE ×3 (11:45→20:17)
[2020-09-23] MEDS: Benzonatate 100 MG CAPSULE 200 MG PO ×2 (13:33→21:38)
[2020-09-23] MEDS: Acetaminophen 325 MG TABLET 650 MG PO (19:35)
[2020-09-23] MEDS: Melatonin 3 MG TABLET 6 MG PO (21:38)
[2020-09-24] VITALS (10 sets, daily range): BP systolic 112–146; BP diastolic 45–77; PULSE 54–100; RESP 18–22; TEMP 36.2–37.2; O2SAT 94–99
[2020-09-24] MEDS: Acetaminophen 325 MG TABLET 650 MG PO ×4 (02:11→21:04)
[2020-09-24] MEDS: Albuterol/Iprat 2.5/0.5MG 3 ML AMPUL.NEB INHALE (02:12)
[2020-09-24] MEDS: guaiFENesin DM 100/10/5 ML 5 ML SYRUP PO ×3 (05:21→19:32)
[2020-09-24] MEDS: Benzonatate 100 MG CAPSULE 200 MG PO ×3 (05:38→21:06)
[2020-09-24] MEDS: Albuterol Sulfate (0.083%) 2.5 MG/3 ML VIAL.NEB INHALE ×4 (07:29→20:06)
[2020-09-24] MEDS: Urea 15 GM POWDER PO (09:28)
[2020-09-24] MEDS: Enoxaparin Sodium 40 MG/0.4 ML SYRINGE SUBCUT (09:28)
[2020-09-24] MEDS: Lidocaine 4 % Patch ADH..PATCH 1 PATCH TRANSDERMA (09:28)
[2020-09-24] MEDS: Aspirin Enteric Coated 81 MG TABLET.DR PO (09:28)
--- NOTE | 2020-09-24 10:17 | P.PNIM_ITS ---
Subjective Subjective Date of Service: 09/24/20 Interval History: F/u on fungal pneumonia, persistent cough, feels tired, didn't sleep well. Review of Systems Gen: no fever Resp: shortness of breah CV: no chest, + HAWTHORNE, no leg edema GI: No n/v, no abd pain Neuro: No confusion Constitutional General: AO X 3, no acute distress Resp: CTA bilateral CVS: S1,S2,RRR GI: +BS, NT, no distention Skin: No rash Neuro: motor grossly intact Psych: appropriate affect Physical Exam Vital Signs: Vital Signs: Last Vital Signs Temp 98.1 F 09/24/20 07:39 Pulse 54 09/24/20 07:39 Resp 19 09/24/20 07:39 BP 126/59 L 09/24/20 07:39 Pulse Ox 99 09/24/20 07:39 Body Mass Index 23.1 Objective Data Current Medications Generic Name Dose Route Start Last Admin Trade Name Freq PRN Reason Stop Dose Admin Acetaminophen 650 mg 09/22/20 18:21 09/24/20 09:33 Acetaminophen 325 Mg Tablet PO 650 mg Q6H PRN Administration Pain, Mild (Pain Scale 1-3) Albuterol Sulfate 2.5 mg 09/23/20 12:00 09/24/20 07:29 Albuterol Sulfate (0.083%) 2.5 Mg/3 Ml Vial.Neb INHALE 2.5 mg RQID KAVEH Administration Albuterol/Ipratropium 3 ml 09/23/20 04:07 09/24/20 02:12 Albuterol/Iprat 2.5/0.5mg 3 Ml Ampul.Neb INHALE 3 ml RQ4H PRN Administration Shortness of Breath/Wheezing Alprazolam 0.5 mg 09/24/20 09:00 Alprazolam 0.5 Mg Tablet PO BEDTIME PRN Anxiety Aspirin 81 mg 09/23/20 09:00 09/24/20 09:28 Aspirin Enteric Coated 81 Mg Tablet. PO 81 mg DAILY KAVEH Administration Benzonatate 200 mg 09/23/20 08:47 09/24/20 05:38 Benzonatate 100 Mg Capsule PO 200 mg TID PRN Administration cough Enoxaparin Sodium 40 mg 09/23/20 09:00 09/24/20 09:28 Enoxaparin Sodium 40 Mg/0.4 Ml Syringe SUBCUT 40 mg Q24H KAVEH Administration Fluticasone Propionate 2 spray 09/23/20 09:00 09/24/20 09:44 Fluticasone Propionate Nasal 16 Gm [place] NOSTRIL-B Not Given DAILY KAVEH Guaifenesin/Dextromethorphan 5 ml 09/22/20 22:19 09/24/20 05:21 Guaifenesin Dm 100/10/5 Ml 5 Ml Syrup PO 5 ml Q6H PRN Administration Cough Voriconazole 325 mg/ Sodium 100 mls @ 50 mls/hr 09/23/20 15:00 09/24/20 04:23 Chloride IV Infused Q12H KAVEH Infusion Lidocaine 1 patch 09/23/20 09:00 09/24/20 09:28 Lidocaine 4 % Patch Adh..Patch TRANSDERMA 1 patch DAILY KAVEH Administration Protocol Loratadine 10 mg 09/23/20 08:47 Loratadine 10 Mg Tablet PO DAILY PRN Runny Nose Melatonin 6 mg 09/22/20 18:21 09/23/20 21:38 Melatonin 3 Mg Tablet PO 6 mg BEDTIME PRN Administration Insomnia Pharmacy Consult 1 each 09/22/20 09:56 Consult Rx Perform Med Rec MISCELLANE ONCE PRN Consult order Urea 15 gm 09/23/20 09:04 09/24/20 09:28 Urea 15 Gm Powder PO 15 gm DAILY KAVEH Administration Labs CBC & Chem 7: 09/22/20 10:17 09/22/20 10:17 Microbiology Microbiology Results: Microbiology 09/22/20 10:27 Blood Culture - Preliminary Blood - Venous No growth after 24 hours. 09/22/20 10:15 Blood Culture - Preliminary Blood - Venous No growth after 24 hours. Assessment and Plan (1) Fungal pneumonia: Status: Acute Assessment and Plan: ?59-year-old gentleman, lifetime nonsmoker, with underlying history of ankylosing spondylitis () followed by Rheumatology now on Remicade, history of organizing pneumonia with? 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 # thoracic outlet syndrome - continue carbamazepine # GERD - continue PPI continue all chronic meds, Lovenox for DVT prophylaxis. Quality Stroke Does the patient have a stroke diagnosis?: No VTE Prior VTE?: No VTE Risk Level:: Medical - moderate - high VTE Device Contraindication: N/A - Device Ordered VTE Drug Contraindication: N/A - Med Ordered
--- NOTE | 2020-09-24 12:22 | MHC.CM.PN ---
EMR REVIEWED, PT W/FUNGAL PNA, PT REMAINS ON O2 3L NC, PER HOSPITALIST WILL CONSULT W/ID TO DETERMINE FINAL ANTIFUNGAL AND HOW LONG TX WILL BE NEEDED, POSSIBLE D/C OVER W/E, REFERRAL TO [facility] PREVIOUSLY PLACED.
[2020-09-24] MEDS: Fluticasone Propionate Nasal 16 GM SPRAY 2 SPRAY NOSTRIL-B (14:47)
--- NOTE | 2020-09-24 16:11 | W.PM.IDCN ---
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 He has been on Diflucan with no improvement for two weeks August and then po itraconazole September with no improvement He has no fever or chills Review of Systems Review of Systems: Yes all other systems are reviewed and are negative [facility] Past Medical History Medical History (Updated 10/12/20 @ 09:53 by Brennan Chapman MD) Acute hyponatremia Ankylosing spondylitis Ankylosing spondylitis Bronchitis Chronic cough COPD (chronic obstructive pulmonary disease) COVID-19 vaccine series completed Dyspnea on exertion GERD (gastroesophageal reflux disease) Hyperlipidemia ILD (interstitial lung disease) Organizing pneumonia Pneumonia Pulmonary nodules Thoracic outlet syndrome Upper airway cough syndrome Family History Family history: reviewed and not pertinent Social History Social History Household Members: None Housing: House Do you presently have visiting nurse or other home services: No Alcohol intake: never Patient Tobacco Use Status: Never used Tobacco Advance Directives Date on File: 07/29/20 service: No Current occupational status: employed Meds Allergies Allergy/AdvReac Type Severity Reaction Status Date / Time acetaminophen [From PERCOCET] Allergy Unknown VOMITING Verified 10/12/20 09:20 codeine [CODEINE] Allergy Unknown VOMITING Verified 10/12/20 09:20 oxycodone [From PERCOCET] Allergy Unknown VOMITING Verified 10/12/20 09:20 Active Medications: Current Medications Generic Name Dose Route Start Last Admin Trade Name Freq PRN Reason Stop Dose Admin Acetaminophen 650 mg 09/22/20 18:21 09/24/20 15:34 Acetaminophen 325 Mg Tablet PO 650 mg Q6H PRN Administration Pain, Mild (Pain Scale 1-3) Albuterol Sulfate 2.5 mg 09/23/20 12:00 09/24/20 15:13 Albuterol Sulfate (0.083%) 2.5 Mg/3 Ml Vial.Neb INHALE 2.5 mg RQID KAVEH Administration Albuterol/Ipratropium 3 ml 09/23/20 04:07 09/24/20 02:12 Albuterol/Iprat 2.5/0.5mg 3 Ml Ampul.Neb INHALE 3 ml RQ4H PRN Administration Shortness of Breath/Wheezing Alprazolam 0.5 mg 09/24/20 09:00 Alprazolam 0.5 Mg Tablet PO BEDTIME PRN Anxiety Aspirin 81 mg 09/23/20 09:00 09/24/20 09:28 Aspirin Enteric Coated 81 Mg Tablet.Dr PO 81 mg DAILY KAVEH Administration Benzonatate 200 mg 09/23/20 08:47 09/24/20 14:46 Benzonatate 100 Mg Capsule PO 200 mg TID PRN Administration cough Enoxaparin Sodium 40 mg 09/23/20 09:00 09/24/20 09:28 Enoxaparin Sodium 40 Mg/0.4 Ml Syringe SUBCUT 40 mg Q24H KAVEH Administration Fluticasone Propionate 2 spray 09/23/20 09:00 09/24/20 14:47 Fluticasone Propionate Nasal 16 Gm [place] NOSTRIL-B 2 spray DAILY KAVEH Administration Guaifenesin/Dextromethorphan 5 ml 09/24/20 10:20 09/24/20 12:17 Guaifenesin Dm 100/10/5 Ml 5 Ml Syrup PO 5 ml Q4H PRN Administration Cough Voriconazole 325 mg/ Sodium 100 mls @ 50 mls/hr 09/23/20 15:00 09/24/20 14:47 Chloride IV 50 mls/hr Q12H KAVEH Administration Lidocaine 1 patch 09/23/20 09:00 09/24/20 09:28 Lidocaine 4 % Patch Adh..Patch TRANSDERMA 1 patch DAILY KAVEH Administration Protocol Loratadine 10 mg 09/23/20 08:47 Loratadine 10 Mg Tablet PO DAILY PRN Runny Nose Melatonin 6 mg 09/22/20 18:21 09/23/20 21:38 Melatonin 3 Mg Tablet PO 6 mg BEDTIME PRN Administration Insomnia Pharmacy Consult 1 each 09/22/20 09:56 Consult Rx Perform Med Rec MISCELLANE ONCE PRN Consult order Urea 15 gm 09/23/20 09:04 09/24/20 09:28 Urea 15 Gm Powder PO 15 gm DAILY KAVEH Administration Home Medications Medication Instructions Recorded Confirmed Last Taken Type aspirin 81 mg tablet,delayed 81 mg PO DAILY 01/27/21 08/11/21 08/11/21 History release carbamazepine 200 mg tablet 600 mg PO BID 03/10/20 09/22/20 09/22/20 History cetirizine 10 mg tablet 10 mg PO DAILY PRN 03/10/20 09/22/20 09/22/20 History fluticasone propionate 50 2 spray INTRANASAL DAILY 03/10/20 09/22/20 09/22/20 History mcg/actuation nasal spray,suspension (Flonase Allergy Relief) omeprazole 20 mg capsule,delayed 20 mg PO DAILY@0630 03/10/20 08/04/20 07/29/20 History release simvastatin 20 mg tablet 20 mg PO BEDTIME 03/10/20 08/04/20 07/28/20 History urea 15 gram oral powder packet 1 packet PO DAILY 08/04/20 09/22/20 09/22/20 History Physical Exam Vital Signs: Vital Signs: Last Vital Signs Temp 98.0 F 09/24/20 12:00 Pulse 100 09/24/20 15:15 Resp 18 09/24/20 12:00 BP 112/45 L 09/24/20 12:00 Pulse Ox 98 09/24/20 12:00 Body Mass Index 23.1 Const: General: cooperative and tired appearing Nutritional Appearance: thin HENMT: Head: Yes normal to inspection Mouth: Normal oral and palatal mucosa present Eyes: General: appearance normal, both eyes and all related structures Pupils: Equal, round and reactive pupils present Resp: Other: rhonchi bases Cardio: Rate: regular rate Rhythm: regular rhythm GI: Palpation (GI): Soft to palpation and nontender Back/Spine/Pelvis: Thoracic/Lumbar Spine: thoraco-lumbar ROM limited and thoracic spinal tenderness Skin: General skin exam: dry skin Neuro: Cranial nerves: Yes Equal, round and reactive pupils present Results Labs CBC & Chem 7: 09/28/20 06:49 09/28/20 06:49 Microbiology Microbiology Results: Microbiology 09/22/20 10:27 Blood - Venous Blood Culture - Preliminary No growth after 48 hours. 09/22/20 10:15 Blood - Venous Blood Culture - Preliminary No growth after 48 hours. Assessment and Plan (1) Acute respiratory failure: Qualifiers: Respiratory failure complication: hypoxia Qualified Code(s): J96.01 - Acute respiratory failure with hypoxia Status: Resolved (2) Fungal pneumonia: Status: Acute This fungus may be colonized area He may have viral or atypical infection lungs AFB lungs pending,no sample for PJP He is on chronic oxygen See how does on Voriconazole symptomatically If not improved within a week stop and consider lung biopsy and check PJP and fungus and viral Check RVP (3) COVID-19 vaccine series completed: (4) ILD (interstitial lung disease): Status: Acute (5) Ankylosing spondylitis:
[2020-09-24] MEDS: Melatonin 3 MG TABLET 6 MG PO (21:05)
[2020-09-24] MEDS: ALPRAZolam 0.5 MG TABLET PO (21:05)
[2020-09-25] VITALS (11 sets, daily range): BP systolic 114–138; BP diastolic 53–59; PULSE 52–82; RESP 14–20; TEMP 36.6–37; O2SAT 92–98
[2020-09-25] MEDS: Albuterol/Iprat 2.5/0.5MG 3 ML AMPUL.NEB INHALE (00:45)
[2020-09-25] MEDS: Acetaminophen 325 MG TABLET 650 MG PO ×4 (03:50→21:01)
[2020-09-25] MEDS: guaiFENesin DM 100/10/5 ML 5 ML SYRUP PO ×4 (03:51→21:02)
[2020-09-25 06:49] LABS: Alanine Aminotransferase 27 U/L (0-40); Albumin Level 3.9 g/dL (3.5-5.0); Alkaline Phosphatase 82 U/L (39-117); Aspartate Amino Transferase 24 U/L (5-37); Bilirubin Direct 0.2 mg/dL (0.0-0.5); Bilirubin Total 0.3 mg/dL (0.0-1.0); Total Protein 6.2 g/dL (6.5-8.0)
[2020-09-25] MEDS: Albuterol Sulfate (0.083%) 2.5 MG/3 ML VIAL.NEB INHALE ×4 (07:35→18:41)
[2020-09-25] MEDS: Lidocaine 4 % Patch ADH..PATCH 1 PATCH TRANSDERMA (09:28)
[2020-09-25] MEDS: Enoxaparin Sodium 40 MG/0.4 ML SYRINGE SUBCUT (09:28)
[2020-09-25] MEDS: Urea 15 GM POWDER PO (09:28)
[2020-09-25] MEDS: Loratadine 10 MG TABLET PO (09:29)
[2020-09-25] MEDS: Aspirin Enteric Coated 81 MG TABLET.DR PO (09:29)
[2020-09-25] MEDS: Benzonatate 100 MG CAPSULE 200 MG PO ×3 (09:29→21:01)
[2020-09-25] MEDS: Fluticasone Propionate Nasal 16 GM SPRAY 2 SPRAY NOSTRIL-B (09:31)
--- NOTE | 2020-09-25 16:10 | HO.PM.IMPN ---
Subjective Subjective Date of Service: 09/25/20 Interval History: Complaining of dry cough and persistent shortness of breath worse with activity, oxygenation remains stable overnight, no other acute issues. Review of Systems General no headache, no dizziness, no fever chills, chronic pain CVS no chest pain, no palpitation. Respiratory cough, sob Gastrointestinal no nausea, no vomiting, no abdominal pain Physical Exam Vital Signs: Vital Signs: Last Vital Signs Temp 98.4 F 09/25/20 15:14 Pulse 64 09/25/20 15:14 Resp 18 09/25/20 15:14 BP 138/56 L 09/25/20 15:14 Pulse Ox 96 09/25/20 15:14 Body Mass Index 23.1 General: AO X 3, no acute distress Neck no JVD Resp:? No respiratory distress, no rhonchi, no crackles , coarse breath sound with few wheeze CVS: S1,S2,RRR GI: +BS, NT, no distention Skin: No rash Neuro:? motor grossly intact Psych: appropriate affect Objective Data Current Medications Generic Name Dose Route Start Last Admin Trade Name Chadwickq PRN Reason Stop Dose Admin Acetaminophen 650 mg 09/22/20 18:21 09/25/20 15:26 Acetaminophen 325 Mg Tablet PO 650 mg Q6H PRN Administration Pain, Mild (Pain Scale 1-3) Albuterol Sulfate 2.5 mg 09/23/20 12:00 09/25/20 14:49 Albuterol Sulfate (0.083%) 2.5 Mg/3 Ml Vial.Neb INHALE 2.5 mg RQID KAVEH Administration Albuterol/Ipratropium 3 ml 09/23/20 04:07 09/25/20 00:45 Albuterol/Iprat 2.5/0.5mg 3 Ml Ampul.Neb INHALE 3 ml RQ4H PRN Administration Shortness of Breath/Wheezing Alprazolam 0.5 mg 09/24/20 09:00 09/24/20 21:05 Alprazolam 0.5 Mg Tablet PO 0.5 mg BEDTIME PRN Administration Anxiety Aspirin 81 mg 09/23/20 09:00 09/25/20 09:29 Aspirin Enteric Coated 81 Mg Tablet.Dr PO 81 mg DAILY KAVEH Administration Benzonatate 200 mg 09/23/20 08:47 09/25/20 15:26 Benzonatate 100 Mg Capsule PO 200 mg TID PRN Administration cough Enoxaparin Sodium 40 mg 09/23/20 09:00 09/25/20 09:28 Enoxaparin Sodium 40 Mg/0.4 Ml Syringe SUBCUT 40 mg Q24H KAVEH Administration Fluticasone Propionate 2 spray 09/23/20 09:00 09/25/20 09:31 Fluticasone Propionate Nasal 16 Gm [place] NOSTRIL-B 2 spray DAILY KAVEH Administration Guaifenesin/Dextromethorphan 5 ml 09/24/20 10:20 09/25/20 13:54 Guaifenesin Dm 100/10/5 Ml 5 Ml Syrup PO 5 ml Q4H PRN Administration Cough Voriconazole 325 mg/ Sodium 100 mls @ 50 mls/hr 09/23/20 15:00 09/25/20 15:26 Chloride IV 50 mls/hr Q12H KAVEH Administration Lidocaine 1 patch 09/23/20 09:00 09/25/20 09:28 Lidocaine 4 % Patch Adh..Patch TRANSDERMA 1 patch DAILY KAVEH Administration Protocol Loratadine 10 mg 09/23/20 08:47 09/25/20 09:29 Loratadine 10 Mg Tablet PO 10 mg DAILY PRN Administration Runny Nose Melatonin 6 mg 09/22/20 18:21 09/24/20 21:05 Melatonin 3 Mg Tablet PO 6 mg BEDTIME PRN Administration Insomnia Pharmacy Consult 1 each 09/22/20 09:56 Consult Rx Perform Med Rec MISCELLANE ONCE PRN Consult order Urea 15 gm 09/23/20 09:04 09/25/20 09:28 Urea 15 Gm Powder PO 15 gm DAILY KAVEH Administration Labs CBC & Chem 7: 09/22/20 10:17 09/22/20 10:17 Labs: Laboratory Results - last 24 hr 09/25/20 05:50 Total Bilirubin 0.3 Direct Bilirubin 0.2 AST 24 ALT 27 Alkaline Phosphatase 82 Total Protein 6.2 L Albumin 3.9 Microbiology Microbiology Results: Microbiology 09/22/20 10:27 Blood Culture - Preliminary Blood - Venous No growth after 48 hours. 09/22/20 10:15 Blood Culture - Preliminary Blood - Venous No growth after 48 hours. Assessment and Plan (1) Acute respiratory failure: Status: Acute (2) Fungal pneumonia: Status: Acute (3) ILD (interstitial lung disease): Status: Acute (4) Ankylosing spondylitis: Status: Acute Assessment and Plan: 59-year-old gentleman, lifetime nonsmoker, with underlying history of ankylosing spondylitis () followed by Rheumatology now on Remicade, history of organizing pneumonia with? 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 Pace recommend to continue antifungal for 1 week and if no improvement she recommend lung biopsy and repeat viral,fungal cultures and check PJP -continue cough medication PRN and O2 support #Chronic Hyponatremia--stable continue urea # - on infliximab as outpatient- sees Dr Sena at [facility] # thoracic outlet syndrome - was on Tegretol held due to interaction with voriconazole, has been tried on multiple analgesics that did not work follows with Neurology Dr. Rai # GERD - continue PPI continue all chronic meds, Lovenox for DVT prophylaxis. Quality Stroke Does the patient have a stroke diagnosis?: No VTE Prior VTE?: No VTE Risk Level:: Medical - moderate - high VTE Device Contraindication: N/A - Device Ordered VTE Drug Contraindication: N/A - Med Ordered
[2020-09-25] MEDS: Melatonin 3 MG TABLET 6 MG PO (21:01)
[2020-09-25] MEDS: ALPRAZolam 0.5 MG TABLET PO (21:01)
[2020-09-26] VITALS (9 sets, daily range): BP systolic 114–137; BP diastolic 47–70; PULSE 52–64; RESP 16–20; TEMP 36.3–36.6; O2SAT 95–98
[2020-09-26] MEDS: Albuterol/Iprat 2.5/0.5MG 3 ML AMPUL.NEB INHALE (02:11)
[2020-09-26] MEDS: guaiFENesin DM 100/10/5 ML 5 ML SYRUP PO ×4 (02:13→21:26)
[2020-09-26] MEDS: Albuterol Sulfate (0.083%) 2.5 MG/3 ML VIAL.NEB INHALE ×4 (07:37→19:47)
[2020-09-26] MEDS: Benzonatate 100 MG CAPSULE 200 MG PO ×3 (08:05→21:25)
[2020-09-26] MEDS: Loratadine 10 MG TABLET PO (08:05)
[2020-09-26] MEDS: Fluticasone Propionate Nasal 16 GM SPRAY 2 SPRAY NOSTRIL-B (08:05)
[2020-09-26] MEDS: Lidocaine 4 % Patch ADH..PATCH 1 PATCH TRANSDERMA (08:05)
[2020-09-26] MEDS: Aspirin Enteric Coated 81 MG TABLET.DR PO (08:05)
[2020-09-26] MEDS: Enoxaparin Sodium 40 MG/0.4 ML SYRINGE SUBCUT (08:05)
[2020-09-26] MEDS: Urea 15 GM POWDER PO (08:05)
[2020-09-26] MEDS: Acetaminophen 325 MG TABLET 650 MG PO ×3 (08:06→21:25)
--- NOTE | 2020-09-26 14:26 | HO.PM.IMPN ---
Subjective Subjective Date of Service: 09/26/20 Interval History: Feels better this morning, denies pain, O2 sat 97% on room air Review of Systems General no headache, no dizziness, no fever, chills CVS no chest pain, no palpitation.? Respiratory?no sob Gastrointestinal no nausea, no vomiting, no abdominal pain Physical Exam Vital Signs: Vital Signs: Last Vital Signs Temp 97.5 F 09/26/20 07:02 Pulse 60 09/26/20 11:05 Resp 18 09/26/20 07:02 BP 137/70 09/26/20 07:02 Pulse Ox 97 09/26/20 07:02 Body Mass Index 23.1 General: AO X 3, no acute distress Neck no JVD Resp:? No respiratory distress, no rhonchi, no crackles , coarse breath sound CVS: S1,S2,RRR GI: +BS, NT, no distention Skin: No rash Neuro:? motor grossly intact Psych: appropriate affect Objective Data Current Medications Generic Name Dose Route Start Last Admin Trade Name Freq PRN Reason Stop Dose Admin Acetaminophen 650 mg 09/22/20 18:21 09/26/20 08:06 Acetaminophen 325 Mg Tablet PO 650 mg Q6H PRN Administration Pain, Mild (Pain Scale 1-3) Albuterol Sulfate 2.5 mg 09/23/20 12:00 09/26/20 11:05 Albuterol Sulfate (0.083%) 2.5 Mg/3 Ml Vial.Neb INHALE 2.5 mg RQID KAVEH Administration Albuterol/Ipratropium 3 ml 09/23/20 04:07 09/26/20 02:11 Albuterol/Iprat 2.5/0.5mg 3 Ml Ampul.Neb INHALE 3 ml RQ4H PRN Administration Shortness of Breath/Wheezing Alprazolam 0.5 mg 09/24/20 09:00 09/25/20 21:01 Alprazolam 0.5 Mg Tablet PO 0.5 mg BEDTIME PRN Administration Anxiety Aspirin 81 mg 09/23/20 09:00 09/26/20 08:05 Aspirin Enteric Coated 81 Mg Tablet. PO 81 mg DAILY KAVEH Administration Benzonatate 200 mg 09/23/20 08:47 09/26/20 08:05 Benzonatate 100 Mg Capsule PO 200 mg TID PRN Administration cough Enoxaparin Sodium 40 mg 09/23/20 09:00 09/26/20 08:05 Enoxaparin Sodium 40 Mg/0.4 Ml Syringe SUBCUT 40 mg Q24H KAVEH Administration Fluticasone Propionate 2 spray 09/23/20 09:00 09/26/20 08:05 Fluticasone Propionate Nasal 16 Gm [place] NOSTRIL-B 2 spray DAILY KAVEH Administration Guaifenesin/Dextromethorphan 5 ml 09/24/20 10:20 09/26/20 08:05 Guaifenesin Dm 100/10/5 Ml 5 Ml Syrup PO 5 ml Q4H PRN Administration Cough Voriconazole 325 mg/ Sodium 100 mls @ 50 mls/hr 09/23/20 15:00 09/26/20 04:19 Chloride IV Infused Q12H KAVEH Infusion Lidocaine 1 patch 09/23/20 09:00 09/26/20 08:05 Lidocaine 4 % Patch Adh..Patch TRANSDERMA 1 patch DAILY KAVEH Administration Protocol Loratadine 10 mg 09/23/20 08:47 09/26/20 08:05 Loratadine 10 Mg Tablet PO 10 mg DAILY PRN Administration Runny Nose Melatonin 6 mg 09/22/20 18:21 09/25/20 21:01 Melatonin 3 Mg Tablet PO 6 mg BEDTIME PRN Administration Insomnia Pharmacy Consult 1 each 09/22/20 09:56 Consult Rx Perform Med Rec MISCELLANE ONCE PRN Consult order Urea 15 gm 09/23/20 09:04 09/26/20 08:05 Urea 15 Gm Powder PO 15 gm DAILY KAVEH Administration Labs CBC & Chem 7: 09/22/20 10:17 09/22/20 10:17 Assessment and Plan (1) Fungal pneumonia: Status: Acute (2) ILD (interstitial lung disease): Status: Acute (3) Ankylosing spondylitis: Status: Acute Assessment and Plan: 59-year-old gentleman, lifetime nonsmoker, with underlying history of ankylosing spondylitis () followed by Rheumatology now on Remicade, history of organizing pneumonia with? 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 Shortness of breath improved, oxygenation stable,continue IV Voriconazole Day 5 -Dr. Pace recommend to continue antifungal for 1 week and if no improvement she recommend lung biopsy and repeat viral,fungal cultures and check PJP Since patient's symptoms are improving will discuss oral antifungal with Dr. Pace. RSV negative, mycoplasma antigen pending, COVID-[address] chest showed right bronchial lobe mucus plugging, bronchial disease with tree-in-bud configuration -continue cough medication PRN, and O2 support #Chronic Hyponatremia--stable continue urea # - on infliximab as outpatient- sees Dr Sena at [facility] # thoracic outlet syndrome - was on Tegretol held due to interaction with voriconazole, has been tried on multiple analgesics that did not work follows with Neurology Dr. Rai, no acute pain at present # GERD - continue PPI continue all chronic meds, Lovenox for DVT prophylaxis. Quality Stroke Does the patient have a stroke diagnosis?: No VTE Prior VTE?: No VTE Risk Level:: Medical - moderate - high VTE Device Contraindication: N/A - Device Ordered VTE Drug Contraindication: N/A - Med Ordered
[2020-09-26] MEDS: Melatonin 3 MG TABLET 6 MG PO (21:24)
[2020-09-26] MEDS: ALPRAZolam 0.5 MG TABLET PO (21:25)
[2020-09-27] VITALS (13 sets, daily range): BP systolic 116–158; BP diastolic 57–63; PULSE 56–97; RESP 14–20; TEMP 36.2–36.6; O2SAT 94–98
[2020-09-27] MEDS: Albuterol/Iprat 2.5/0.5MG 3 ML AMPUL.NEB INHALE ×2 (01:03→23:49)
[2020-09-27] MEDS: guaiFENesin DM 100/10/5 ML 5 ML SYRUP PO ×4 (01:04→21:46)
[2020-09-27 06:45] LABS: Alanine Aminotransferase 20 U/L (0-40); Alkaline Phosphatase 69 U/L (39-117); Anion Gap 10 (12-20); Aspartate Amino Transferase 16 U/L (5-37); Bilirubin Direct 0.2 mg/dL (0.0-0.5); Bilirubin Total 0.2 mg/dL (0.0-1.0); Blood Urea Nitrogen 10 mg/dL (9-16); Calcium 9.2 mg/dL (8.4-10.2); Carbon Dioxide 31 mmol/L (22-29); Chloride 105 mmol/L (96-108); Estimated Glomerular Filt Rate > 60; Glucose Random 97 mg/dL (60-115); Potassium 4.1 mmol/L (3.3-5.1); Sodium 142 mmol/L (135-145); Total Protein 6.5 g/dL (6.5-8.0)
[2020-09-27] MEDS: Albuterol Sulfate (0.083%) 2.5 MG/3 ML VIAL.NEB INHALE ×4 (07:18→19:35)
[2020-09-27] MEDS: Enoxaparin Sodium 40 MG/0.4 ML SYRINGE SUBCUT (08:00)
[2020-09-27] MEDS: Lidocaine 4 % Patch ADH..PATCH 1 PATCH TRANSDERMA (08:01)
[2020-09-27] MEDS: Acetaminophen 325 MG TABLET 650 MG PO ×2 (08:05→21:46)
[2020-09-27] MEDS: Benzonatate 100 MG CAPSULE 200 MG PO ×3 (08:05→21:46)
[2020-09-27] MEDS: Urea 15 GM POWDER PO (08:06)
[2020-09-27] MEDS: Aspirin Enteric Coated 81 MG TABLET.DR PO (08:06)
[2020-09-27] MEDS: Fluticasone Propionate Nasal 16 GM SPRAY 2 SPRAY NOSTRIL-B (08:19)
--- NOTE | 2020-09-27 10:01 | P.CONPL_ITS ---
History of Present Illness History of Present Illness Consult date: 09/27/20 Chief complaint: PnA Narrative: 59-year-old gentleman, lifetime nonsmoker, with underlying history of ankylosing spondylitis followed by Rheumatology now on Remicade, history of organizing pneumonia with? chronic productive cough, and dyspnea on exertion, however not on home O2.? Patient has recently been hospitalized at [facility]? and during that stay undwent bronchoscopy on 08/06 taht showed inflammed bronchial mucosa with copious secretions.? BAL sent- routine/fungal/AFB cultures? grew filamentous fungus and yeast therefore patient started on Diflucan 200 mg.? His symptoms of cough and dyspnea have improved significantly on fluconazole and he has been switched to itraconazole 2 weeks prior for? anti aspergillosis therapy.? Unfortunately over the last several weeks his symptoms? have been getting worse including dyspnea and cough intermittently productive of yellowish sputum.? He was seen in the pulmonary clinic today and? was sent to the ED for IV Abx and antifungal meds. He is afebr ile, WBC normal. CXR?Continued some right lower lobe bronchial mucous plugging with end bronchial disease with tree-in-bud configuration.? Resolution of previous regions of disease within the lingula and left? lower lobe. Mild bronchiectasis. He continues to have a croupy cough and significant coughing spells. I did review his last CT chest dmonstrating airspace disease of the RLL. Although, the cough appears to be more of an upper airway extrathoracic process. Review of Systems Constitutional: Constitutional: Denies daytime sleepiness, Denies excessive sweating, Denies fatigue, Denies fever(s), Denies lethargy, Denies malaise, Denies night sweats, Denies snoring and Denies weight loss Eyes: Eyes: Denies blurry vision and Denies itchy eyes ENT: Denies nasal congestion, Denies post nasal drip, Denies sinus pain, Denies sinus pressure and Denies other ( Thrush) Cardiovascular: Cardiovascular: Denies chest pain, Denies pedal edema, Reports dyspnea, Denies orthopnea and Denies paroxysmal nocturnal dyspnea Respiratory: Respiratory: Reports cough, Denies hemoptysis, Denies excessive phlegm production, Reports dyspnea, Denies snoring and Denies wheezing Gastrointestinal: Gastrointestinal: Denies abdominal pain and Denies heartburn Musculoskeletal: Musculoskeletal: Denies myalgias, Denies arthralgias and Denies joint swelling Integumentary/Breasts: Skin/Breast: Denies rash Neurologic: Denies memory loss and Denies seizure-like activity Psychiatric: Psychiatric: Denies abnormal sleep pattern, Denies anxiety and Denies memory loss Endocrine: Endocrine: Denies excessive sweating, Denies fatigue and Denies heat intolerance Hematologic/Lymphatic: Hematologic/Lymphatic: Denies easy bruising Allergic/Immunologic: Allergic/Immunologic: Denies itchy eyes, Denies seasonal rhinorrhea and Denies wheezing PMFSH Past Medical History Medical History (Updated 09/27/20 @ 10:04 by Kevin Rogers MD) Acute hyponatremia Ankylosing spondylitis Ankylosing spondylitis Bronchitis Chronic cough COPD (chronic obstructive pulmonary disease) COVID-19 vaccine series completed Dyspnea on exertion GERD (gastroesophageal reflux disease) Hyperlipidemia Organizing pneumonia Pneumonia Pulmonary nodules Thoracic outlet syndrome Upper airway cough syndrome Family History Family history: reviewed and not pertinent Social History Social History Household Members: None Housing: House Do you presently have visiting nurse or other home services: No Alcohol intake: never Patient Tobacco Use Status: Never used Tobacco Advance Directives Date on File: 07/29/20 service: No Current occupational status: employed Meds Allergies Allergy/AdvReac Type Severity Reaction Status Date / Time acetaminophen [From PERCOCET] Allergy Unknown VOMITING Verified 09/22/20 09:14 codeine [CODEINE] Allergy Unknown VOMITING Verified 09/22/20 09:14 oxycodone [From PERCOCET] Allergy Unknown VOMITING Verified 09/22/20 09:14 Active Medications: Current Medications Generic Name Dose Route Start Last Admin Trade Name Freq PRN Reason Stop Dose Admin Acetaminophen 650 mg 09/22/20 18:21 09/27/20 08:05 Acetaminophen 325 Mg Tablet PO 650 mg Q6H PRN Administration Pain, Mild (Pain Scale 1-3) Albuterol Sulfate 2.5 mg 09/23/20 12:00 09/27/20 07:18 Albuterol Sulfate (0.083%) 2.5 Mg/3 Ml Vial.Neb INHALE 2.5 mg RQID KAVEH Administration Albuterol/Ipratropium 3 ml 09/23/20 04:07 09/27/20 01:03 Albuterol/Iprat 2.5/0.5mg 3 Ml Ampul.Neb INHALE 3 ml RQ4H PRN Administration Shortness of Breath/Wheezing Alprazolam 0.5 mg 09/24/20 09:00 09/26/20 21:25 Alprazolam 0.5 Mg Tablet PO 0.5 mg BEDTIME PRN Administration Anxiety Aspirin 81 mg 09/23/20 09:00 09/27/20 08:06 Aspirin Enteric Coated 81 Mg Tablet.Dr PO 81 mg DAILY KAVEH Administration Benzonatate 200 mg 09/23/20 08:47 09/27/20 08:05 Benzonatate 100 Mg Capsule PO 200 mg TID PRN Administration cough Enoxaparin Sodium 40 mg 09/23/20 09:00 09/27/20 08:00 Enoxaparin Sodium 40 Mg/0.4 Ml Syringe SUBCUT 40 mg Q24H KAVEH Administration Epinephrine 0.5 ml 09/27/20 10:00 Racepinephrine Hcl 0.5 Ml Vial.Neb INHALE 09/27/20 18:01 Q4H KAVEH Fluticasone Propionate 2 spray 09/23/20 09:00 09/27/20 08:19 Fluticasone Propionate Nasal 16 Gm [place] NOSTRIL-B 2 spray DAILY KAVEH Administration Guaifenesin/Dextromethorphan 5 ml 09/24/20 10:20 09/27/20 06:28 Guaifenesin Dm 100/10/5 Ml 5 Ml Syrup PO 5 ml Q4H PRN Administration Cough Voriconazole 325 mg/ Sodium 100 mls @ 50 mls/hr 09/23/20 15:00 09/27/20 03:18 Chloride IV Infused Q12H KAVEH Infusion Lidocaine 1 patch 09/23/20 09:00 09/27/20 08:01 Lidocaine 4 % Patch Adh..Patch TRANSDERMA 1 patch DAILY KAVEH Administration Protocol Loratadine 10 mg 09/23/20 08:47 09/26/20 08:05 Loratadine 10 Mg Tablet PO 10 mg DAILY PRN Administration Runny Nose Melatonin 6 mg 09/22/20 18:21 09/26/20 21:24 Melatonin 3 Mg Tablet PO 6 mg BEDTIME PRN Administration Insomnia Pharmacy Consult 1 each 09/22/20 09:56 Consult Rx Perform Med Rec MISCELLANE ONCE PRN Consult order Urea 15 gm 09/23/20 09:04 09/27/20 08:06 Urea 15 Gm Powder PO 15 gm DAILY KAVEH Administration Home Medications Medication Instructions Recorded Confirmed Last Taken Type aspirin 81 mg tablet,delayed 81 mg PO DAILY 03/10/20 09/22/20 09/22/20 History release carbamazepine 200 mg tablet 600 mg PO BID 03/10/20 09/22/20 09/22/20 History cetirizine 10 mg tablet 10 mg PO DAILY PRN 03/10/20 09/22/20 09/22/20 History fluticasone propionate 50 2 spray INTRANASAL DAILY 03/10/20 09/22/20 09/22/20 History mcg/actuation nasal spray,suspension (Flonase Allergy Relief) omeprazole 20 mg capsule,delayed 20 mg PO DAILY@0630 03/10/20 08/04/20 07/29/20 History release simvastatin 20 mg tablet 20 mg PO BEDTIME 03/10/20 08/04/20 07/28/20 History urea 15 gram oral powder packet 1 packet PO DAILY 08/04/20 09/22/20 09/22/20 History Physical Exam Vital Signs: Vital Signs: Last Vital Signs Temp 97.8 F 09/27/20 07:57 Pulse 65 09/27/20 07:57 Resp 19 09/27/20 07:57 BP 158/63 H 09/27/20 07:57 Pulse Ox 97 09/27/20 07:57 Body Mass Index 23.1 Const: General: alert Neck: Neck: Yes normal visual inspection, Yes full ROM and Yes no lymphadenopathy Chest: Chest palpation & inspection: normal inspection of the chest Resp: Auscultation: rhonchi and diminished lung sounds Cardio: Rate: regular rate Rhythm: regular rhythm Heart sounds: S1 normal heart sound present and S2 normal heart sound present GI: Palpation (GI): Soft to palpation and nontender Auscultation: normal bowel sounds Skin: General skin exam: rashes and/or lesions noted Results Laboratory Findings CBC and BMP: 09/22/20 10:17 09/27/20 06:13 ABG, PT/INR, D-dimer: PT/INR, D-dimer PT 12.2 SEC (9.9-13.0) 09/22/20 10:16 INR 1.1 (0.9-1.1) 09/22/20 10:16 Abnormal lab findings: Abnormal Labs 09/22/20 09/22/20 09/22/20 10:16 10:17 10:17 RBC 3.93 L Hgb 13.1 L Hct 37.6 L MCH 33.3 H MPV 8.3 L Lymph % (Auto) 10.0 L Eos % (Auto) 18.8 H Lymph # (Auto) 0.8 L Eos # (Auto) 1.6 H Sodium 130 L Carbon Dioxide Anion Gap C-Reactive Protein 4.39 H Total Protein Urine Blood Urine RBC 09/22/20 09/25/20 09/27/20 12:29 05:50 06:13 RBC Hgb Hct MCH MPV Lymph % (Auto) Eos % (Auto) Lymph # (Auto) Eos # (Auto) Sodium Carbon Dioxide 31 H Anion Gap 10 L C-Reactive Protein Total Protein 6.2 L Urine Blood 1+ H Urine RBC 5-9 H Microbiology: Microbiology 09/22/20 10:27 Blood - Venous Blood Culture - Preliminary No growth after 48 hours. 09/22/20 10:15 Blood - Venous Blood Culture - Preliminary No growth after 48 hours. Assessment and Plan (1) ILD (interstitial lung disease): Status: Acute (2) Ankylosing spondylitis: Status: Acute (3) Upper airway cough syndrome: Status: Acute (4) Pneumonia: Status: Acute Continue voriconazole If no better consider repeating bronchoscopy Start Racimic epi x 3 doses Procedures Date of Service Date of Service: 09/27/20
[2020-09-27] MEDS: Racepinephrine HCL 0.5 ML VIAL.NEB INHALE ×3 (10:11→18:03)
--- NOTE | 2020-09-27 12:39 | MHC.CM.PN ---
EMR REVIEWED, PT PER PULMONARY PT STARTED ON MICRONEFRIN X 3 DOSE, PT REMAINS ON IV VORICONAZOLE AND PT NEED BIOPSY IF NO IMPROVEMENT. [facility] FOLLOWING, CM WILL CONT TO FOLLOW.
--- NOTE | 2020-09-27 14:58 | PM.IMPN ---
Progress Note: A&P (1) Pneumonia: Status: Acute Assessment and Plan: 59-year-old gentleman, lifetime nonsmoker, with underlying history of ankylosing spondylitis () followed by Rheumatology now on Remicade, history of organizing pneumonia with? 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 Bronchial lavage 07/2020. RSV negative, mycoplasma antigen pending, COVID-19 negative ?Shortness of breath improved, oxygenation stable,continue IV Voriconazole total of 7 days, seems to be responding well seen by pulm, rec repeat bronch if no improvement in symptoms after 7 days cough medicine prn #Chronic Hyponatremia stable continue urea # on infliximab as outpatient- sees Dr Sena at [facility] # thoracic outlet syndrome - was on Tegretol held due to interaction with voriconazole, has been tried on multiple analgesics that did not work follows with Neurology Dr. Rai, no acute pain at present # GERD - continue PPI continue all chronic meds, Lovenox for DVT prophylaxis. Subjective Subjective Date of Service: 09/27/20 Interval History: Follow up fungal pna doing better oob to chair Physical Exam Vital Signs: Vital Signs: Last Vital Signs Temp 97.7 F 09/27/20 12:00 Pulse 62 09/27/20 13:59 Resp 20 09/27/20 12:00 BP 121/58 L 09/27/20 12:00 Pulse Ox 98 09/27/20 12:00 Body Mass Index 23.1 Appearing in no acute distress lung sounds dim heart regular rate rhythm, clear S1, S2 positive bowel sounds, abdomen is soft, nontender neuro patient is alert x3, no focal deficits Objective Data Current Medications Generic Name Dose Route Start Last Admin Trade Name Freq PRN Reason Stop Dose Admin Acetaminophen 650 mg 09/22/20 18:21 09/27/20 08:05 Acetaminophen 325 Mg Tablet PO 650 mg Q6H PRN Administration Pain, Mild (Pain Scale 1-3) Albuterol Sulfate 2.5 mg 09/23/20 12:00 09/27/20 11:50 Albuterol Sulfate (0.083%) 2.5 Mg/3 Ml Vial.Neb INHALE 2.5 mg RQID KAVEH Administration Albuterol/Ipratropium 3 ml 09/23/20 04:07 09/27/20 01:03 Albuterol/Iprat 2.5/0.5mg 3 Ml Ampul.Neb INHALE 3 ml RQ4H PRN Administration Shortness of Breath/Wheezing Alprazolam 0.5 mg 09/24/20 09:00 09/26/20 21:25 Alprazolam 0.5 Mg Tablet PO 0.5 mg BEDTIME PRN Administration Anxiety Aspirin 81 mg 09/23/20 09:00 09/27/20 08:06 Aspirin Enteric Coated 81 Mg Tablet.Dr PO 81 mg DAILY KAVEH Administration Benzonatate 200 mg 09/23/20 08:47 09/27/20 13:27 Benzonatate 100 Mg Capsule PO 200 mg TID PRN Administration cough Enoxaparin Sodium 40 mg 09/23/20 09:00 09/27/20 08:00 Enoxaparin Sodium 40 Mg/0.4 Ml Syringe SUBCUT 40 mg Q24H KAVEH Administration Epinephrine 0.5 ml 09/27/20 10:00 09/27/20 13:56 Racepinephrine Hcl 0.5 Ml Vial.Neb INHALE 09/27/20 18:01 0.5 ml Q4H KAVEH Administration Fluticasone Propionate 2 spray 09/23/20 09:00 09/27/20 08:19 Fluticasone Propionate Nasal 16 Gm [place] NOSTRIL-B 2 spray DAILY KAVEH Administration Guaifenesin/Dextromethorphan 5 ml 09/24/20 10:20 09/27/20 06:28 Guaifenesin Dm 100/10/5 Ml 5 Ml Syrup PO 5 ml Q4H PRN Administration Cough Voriconazole 325 mg/ Sodium 100 mls @ 50 mls/hr 09/23/20 15:00 09/27/20 14:12 Chloride IV 50 mls/hr Q12H KAVEH Administration Lidocaine 1 patch 09/23/20 09:00 09/27/20 08:01 Lidocaine 4 % Patch Adh..Patch TRANSDERMA 1 patch DAILY KAVEH Administration Protocol Loratadine 10 mg 09/23/20 08:47 09/26/20 08:05 Loratadine 10 Mg Tablet PO 10 mg DAILY PRN Administration Runny Nose Melatonin 6 mg 09/22/20 18:21 09/26/20 21:24 Melatonin 3 Mg Tablet PO 6 mg BEDTIME PRN Administration Insomnia Pharmacy Consult 1 each 09/22/20 09:56 Consult Rx Perform Med Rec MISCELLANE ONCE PRN Consult order Urea 15 gm 09/23/20 09:04 09/27/20 08:06 Urea 15 Gm Powder PO 15 gm DAILY KAVEH Administration Labs CBC & Chem 7: 09/22/20 10:17 09/27/20 06:13 Labs: Laboratory Results - last 24 hr 09/27/20 06:13 Anion Gap 10 L Estim Creat Clear Calc 135.0 Estimated GFR > 60 Random Glucose 97 Calcium 9.2 Total Bilirubin 0.2 Direct Bilirubin 0.2 AST 16 ALT 20 Alkaline Phosphatase 69 Total Protein 6.5 Albumin 4.0 Microbiology Microbiology Results: Microbiology 09/22/20 10:27 Blood - Venous Blood Culture - Final No growth after 5 days. 09/22/20 10:15 Blood - Venous Blood Culture - Final No growth after 5 days. Quality Stroke Does the patient have a stroke diagnosis?: No VTE Prior VTE?: No VTE Risk Level:: Medical - moderate - high VTE Device Contraindication: N/A - Device Ordered VTE Drug Contraindication: N/A - Med Ordered
[2020-09-27] MEDS: ALPRAZolam 0.5 MG TABLET PO (21:46)
[2020-09-28] VITALS (10 sets, daily range): BP systolic 106–132; BP diastolic 47–63; PULSE 54–65; RESP 18; TEMP 36–36.7; O2SAT 93–100
[2020-09-28 07:16] LABS: Hematocrit 43.5 % (42-52); Hemoglobin 14.2 g/dl (14.0-18.0); Mean Corpuscular HGB Conc 32.6 g/dl (31.0-36.0); Mean Corpuscular Hemoglobin 32.4 pg (27.0-33.0); Mean Corpuscular Volume 99.3 fL (80-98); Mean Platelet Volume 8.2 fL (9.4-12.4); Platelet Count 255 X10*3/uL (160-400); Red Blood Count 4.38 X10*6/uL (4.60-5.80); Red Cell Distribution Width 12.1 % (11.0-16.0); White Blood Count 7.5 X10*3/uL (4.8-10.8)
[2020-09-28 07:33] LABS: Anion Gap 10 (12-20); Blood Urea Nitrogen 12 mg/dL (9-16); Calcium 9.7 mg/dL (8.4-10.2); Carbon Dioxide 31 mmol/L (22-29); Chloride 104 mmol/L (96-108); Creatinine Clr Calc Pharmacy 129.3; Estimated Glomerular Filt Rate > 60; Glucose Random 95 mg/dL (60-115); Potassium 4.4 mmol/L (3.3-5.1); Sodium 141 mmol/L (135-145)
[2020-09-28] MEDS: Aspirin Enteric Coated 81 MG TABLET.DR PO (07:45)
[2020-09-28] MEDS: Lidocaine 4 % Patch ADH..PATCH 1 PATCH TRANSDERMA (07:46)
[2020-09-28] MEDS: Fluticasone Propionate Nasal 16 GM SPRAY 2 SPRAY NOSTRIL-B (07:46)
[2020-09-28] MEDS: Urea 15 GM POWDER PO (07:47)
[2020-09-28] MEDS: Enoxaparin Sodium 40 MG/0.4 ML SYRINGE SUBCUT (07:50)
[2020-09-28] MEDS: Acetaminophen 325 MG TABLET 650 MG PO ×2 (07:56→22:00)
[2020-09-28] MEDS: guaiFENesin DM 100/10/5 ML 5 ML SYRUP PO ×2 (07:57→22:00)
[2020-09-28] MEDS: Benzonatate 100 MG CAPSULE 200 MG PO ×2 (07:57→22:00)
[2020-09-28] MEDS: Albuterol Sulfate (0.083%) 2.5 MG/3 ML VIAL.NEB INHALE ×4 (08:16→19:41)
--- NOTE | 2020-09-28 09:25 | PM.PNPUL ---
Subjective Subjective Date of Service: 09/28/20 Interval history: The patient was seen on exam. He had a bad night with worsening cough. He did have the recent may get be administered multiple times without any significant improvement. He is complaining the 7 days of voriconazole. This point currently the cough is related to the airspace disease and discomfort appears to be more rate upper airway extrathoracic process with stridor and croup. At this time will try to suppress his cough with opiates and also will trial lidocaine neb dizzy if this provides some relief. Objective Data Labs CBC & Chem 7: 09/28/20 06:49 09/28/20 06:49 Labs: Laboratory Results - last 24 hr 09/28/20 09/28/20 06:49 06:49 WBC 7.5 RBC 4.38 L Hgb 14.2 Hct 43.5 MCV 99.3 H MCH 32.4 MCHC 32.6 RDW 12.1 Plt Count 255 D MPV 8.2 L Absolute Nucleated RBC 0.000 Nucleated RBC % (auto) 0.0 Sodium 141 Potassium 4.4 Chloride 104 Carbon Dioxide 31 H Anion Gap 10 L BUN 12 Creatinine 0.71 Estim Creat Clear Calc 129.3 Estimated GFR > 60 Random Glucose 95 Calcium 9.7 Microbiology Microbiology Results: Microbiology 09/22/20 10:27 Blood - Venous Blood Culture - Final No growth after 5 days. 09/22/20 10:15 Blood - Venous Blood Culture - Final No growth after 5 days. Review of Systems Constitutional: Denies daytime sleepiness, Denies excessive sweating, Denies fatigue, Denies fever(s), Denies lethargy, Denies malaise, Denies night sweats, Denies snoring and Denies weight loss Eyes: Denies blurry vision and Denies itchy eyes Denies nasal congestion, Denies post nasal drip, Denies sinus pain, Denies sinus pressure and Denies other ( Thrush) Cardiovascular: Denies chest pain, Denies pedal edema, Reports dyspnea, Denies orthopnea and Denies paroxysmal nocturnal dyspnea Respiratory: Reports cough, Denies hemoptysis, Denies excessive phlegm production, Reports dyspnea, Denies snoring and Denies wheezing Gastrointestinal: Denies abdominal pain and Denies heartburn Musculoskeletal: Denies myalgias, Denies arthralgias and Denies joint swelling Skin/Breast: Denies rash Denies memory loss and Denies seizure-like activity Psychiatric: Denies abnormal sleep pattern, Denies anxiety and Denies memory loss Endocrine: Denies excessive sweating, Denies fatigue and Denies heat intolerance Hematologic/Lymphatic: Denies easy bruising Allergic/Immunologic: Denies itchy eyes, Denies seasonal rhinorrhea and Denies wheezing Physical Exam Vital Signs: Vital Signs: Last Vital Signs Temp 96.8 F 09/28/20 07:42 Pulse 61 09/28/20 08:17 Resp 18 09/28/20 07:42 BP 130/63 09/28/20 07:42 Pulse Ox 98 09/28/20 07:42 Body Mass Index 23.1 Const: General: alert Neck: Neck: Yes normal visual inspection, Yes full ROM and Yes no lymphadenopathy Chest: Chest palpation & inspection: normal inspection of the chest Resp: Auscultation: diminished lung sounds Cardio: Rate: regular rate Rhythm: regular rhythm Heart sounds: S1 normal heart sound present and S2 normal heart sound present GI: Palpation (GI): Soft to palpation and nontender Auscultation: normal bowel sounds Skin: General skin exam: rashes and/or lesions noted Procedures Date of Service Date of Service: 09/28/20 Assessment and Plan Assessment and plan (1) Pneumonia: Status: Acute (2) Upper airway cough syndrome: Status: Acute (3) Fungal pneumonia: Status: Acute (4) ILD (interstitial lung disease): Status: Acute Assessment and Plan: Lidocaine with albuterol neb x1 mild Opiates for cough suppressant Continue antifungal as per ID Consider bronchoscopy if no better Time Spent With Patient Time: Total time spent is greater than 50% in coordination of care (as documented) at patient's floor/unit and/or counseling patient: Time with patient: 15 - 24 minutes Progress Note: Quality Stroke Does the patient have a stroke diagnosis?: No
--- NOTE | 2020-09-28 11:28 | P.PNIM_ITS ---
Progress Note: A&P (1) Pneumonia: Status: Acute <Marcy Rogers NP - Last Filed: 09/28/20 11:31> Assessment and Plan: 59-year-old gentleman, lifetime nonsmoker, with underlying history of ankylosing spondylitis () followed by Rheumatology now on Remicade, history of organizing pneumonia with? 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 Bronchial lavage 07/2020. RSV negative, mycoplasma antigen pending, COVID-19 negative ?Shortness of breath improved, oxygenation stable,continue IV Voriconazole total of 7 days, seems to be responding well ?seen by pulm, bronch likely as o/p ?cough medicine prn Chest CT to re-eval fungal pna xanax for anxiety #Chronic Hyponatremia stable continue urea # on infliximab as outpatient- sees Dr Sena at [facility] # thoracic outlet syndrome - was on Tegretol held due to interaction with voriconazole, has been tried on multiple analgesics that did not work follows with Neurology Dr. Rai, no acute pain at present # GERD - continue PPI Lovenox for DVT prophylaxis. <Marcy Rogers NP - Last Filed: 09/28/20 11:31> Subjective Subjective Date of Service: 09/28/20 <Marcy Rogers NP - Last Filed: 09/28/20 11:31> 10/01/20 <Aram Alarcon MD - Last Filed: 10/01/20 16:11> Interval History: Follow up fungal pna still feeling tightnes sin his chest <Marcy Rogers NP - Last Filed: 09/28/20 11:31> Physical Exam Vital Signs: Vital Signs: Last Vital Signs Temp 96.8 F 09/28/20 07:42 Pulse 61 09/28/20 08:17 Resp 18 09/28/20 07:42 BP 130/63 09/28/20 07:42 Pulse Ox 98 09/28/20 07:42 Body Mass Index 23.1 <Marcy Rogers NP - Last Filed: 09/28/20 11:31> Appearing in no acute distress lung sounds are clear to auscultation heart regular rate rhythm, clear S1, S2 positive bowel sounds, abdomen is soft, nontender neuro patient is alert x3, no focal deficits <Marcy Rogers [employer]MENT [employer]NAGER - Last Filed: 09/28/20 11:31> Objective Data Current Medications Generic Name Dose Route Start Last Admin Trade Name Sisi PRN Reason Stop Dose Admin Acetaminophen 650 mg 09/22/20 18:21 09/28/20 07:56 Acetaminophen 325 Mg Tablet PO 650 mg Q6H PRN Administration Pain, Mild (Pain Scale 1-3) Albuterol Sulfate 2.5 mg 09/23/20 12:00 09/28/20 08:16 Albuterol Sulfate (0.083%) 2.5 Mg/3 Ml Vial.Neb INHALE 2.5 mg RQID KAVEH Administration Albuterol/Ipratropium 3 ml 09/23/20 04:07 09/27/20 23:49 Albuterol/Iprat 2.5/0.5mg 3 Ml Ampul.Neb INHALE 3 ml RQ4H PRN Administration Shortness of Breath/Wheezing Alprazolam 0.5 mg 09/28/20 11:30 Alprazolam 0.5 Mg Tablet PO BID KAVEH Aspirin 81 mg 09/23/20 09:00 09/28/20 07:45 Aspirin Enteric Coated 81 Mg Tablet. PO 81 mg DAILY KAVEH Administration Benzonatate 200 mg 09/23/20 08:47 09/28/20 07:57 Benzonatate 100 Mg Capsule PO 200 mg TID PRN Administration cough Enoxaparin Sodium 40 mg 09/23/20 09:00 09/28/20 07:50 Enoxaparin Sodium 40 Mg/0.4 Ml Syringe SUBCUT 40 mg Q24H KAVEH Administration Fluticasone Propionate 2 spray 09/23/20 09:00 09/28/20 07:46 Fluticasone Propionate Nasal 16 Gm [place] NOSTRIL-B 2 spray DAILY KAVEH Administration Guaifenesin/Dextromethorphan 5 ml 09/24/20 10:20 09/28/20 07:57 Guaifenesin Dm 100/10/5 Ml 5 Ml Syrup PO 5 ml Q4H PRN Administration Cough Voriconazole 325 mg/ Sodium 100 mls @ 50 mls/hr 09/23/20 15:00 09/28/20 05:59 Chloride IV 09/30/20 04:59 Infused Q12H KAVEH Infusion Lidocaine 1 patch 09/23/20 09:00 09/28/20 07:46 Lidocaine 4 % Patch Adh..Patch TRANSDERMA 1 patch DAILY KAVEH Administration Protocol Loratadine 10 mg 09/23/20 08:47 09/26/20 08:05 Loratadine 10 Mg Tablet PO 10 mg DAILY PRN Administration Runny Nose Melatonin 6 mg 09/22/20 18:21 09/26/20 21:24 Melatonin 3 Mg Tablet PO 6 mg BEDTIME PRN Administration Insomnia Pharmacy Consult 1 each 09/22/20 09:56 Consult Rx Perform Med Rec MISCELLANE ONCE PRN Consult order Urea 15 gm 09/23/20 09:04 09/28/20 07:47 Urea 15 Gm Powder PO 15 gm DAILY KAVEH Administration <Marcy Rogers NP - Last Filed: 09/28/20 11:31> Labs CBC & Chem 7: : 09/28/20 06:49 09/28/20 06:49 <Marcy Rogers NP - Last Filed: 09/28/20 11:31> Labs: Laboratory Results - last 24 hr 09/28/20 09/28/20 06:49 06:49 MCV 99.3 H MCH 32.4 MCHC 32.6 RDW 12.1 Plt Count 255 D MPV 8.2 L Absolute Nucleated RBC 0.000 Nucleated RBC % (auto) 0.0 Anion Gap 10 L Estim Creat Clear Calc 129.3 Estimated GFR > 60 Random Glucose 95 Calcium 9.7 <Marcy Rogers NP - Last Filed: 09/28/20 11:31> Microbiology Microbiology Results: Microbiology 09/22/20 10:27 Blood - Venous Blood Culture - Final No growth after 5 days. 09/22/20 10:15 Blood - Venous Blood Culture - Final No growth after 5 days. <Marcy Rogers NP - Last Filed: 09/28/20 11:31> Quality Stroke Does the patient have a stroke diagnosis?: No <Marcy Rogers NP - Last Filed: 09/28/20 11:31> VTE Prior VTE?: No <Marcy Rogers NP - Last Filed: 09/28/20 11:31> VTE Risk Level:: Medical - moderate - high <Marcy Rogers NP - Last Filed: 09/28/20 11:31> VTE Device Contraindication: N/A - Device Ordered <Marcy Rogers NP - Last Filed: 09/28/20 11:31> VTE Drug Contraindication: N/A - Med Ordered <Marcy Rogers NP - Last Filed: 09/28/20 11:31>
[2020-09-28] MEDS: Lidocaine HCl 4 % MPF 5 ML AMPUL 3 ML INHALE (12:22)
[2020-09-28] MEDS: ALPRAZolam 0.5 MG TABLET PO (22:00)
[2020-09-28] MEDS: Melatonin 3 MG TABLET 6 MG PO (22:00)
[2020-09-29 03:27] VITALS: BP 134/45; PULSE 59; RESP 18; TEMP 36.1; O2SAT 98
[2020-09-29 07:23] VITALS: BP 114/49; PULSE 60; RESP 18; TEMP 36.3; O2SAT 97
[2020-09-29] MEDS: Albuterol Sulfate (0.083%) 2.5 MG/3 ML VIAL.NEB INHALE ×2 (07:51→11:29)
[2020-09-29 07:52] VITALS: PULSE 58; O2SAT 95
--- NOTE | 2020-09-29 09:19 | PM.PNPUL ---
Subjective Subjective Date of Service: 09/29/20 Interval history: The patient was seen and examined. The cough is better. His CT chest is better. Objective Data Labs CBC & Chem 7: 09/28/20 06:49 09/28/20 06:49 Microbiology Microbiology Results: Microbiology 09/22/20 10:27 Blood - Venous Blood Culture - Final No growth after 5 days. 09/22/20 10:15 Blood - Venous Blood Culture - Final No growth after 5 days. Review of Systems Constitutional: Denies daytime sleepiness, Denies excessive sweating, Denies fatigue, Denies fever(s), Denies lethargy, Denies malaise, Denies night sweats, Denies snoring and Denies weight loss Eyes: Denies blurry vision and Denies itchy eyes Denies nasal congestion, Denies post nasal drip, Denies sinus pain, Denies sinus pressure and Denies other ( Thrush) Cardiovascular: Denies chest pain, Denies pedal edema, Reports dyspnea, Denies orthopnea and Denies paroxysmal nocturnal dyspnea Respiratory: Reports cough, Denies hemoptysis, Denies excessive phlegm production, Reports dyspnea, Denies snoring and Denies wheezing Gastrointestinal: Denies abdominal pain and Denies heartburn Musculoskeletal: Denies myalgias, Denies arthralgias and Denies joint swelling Skin/Breast: Denies rash Denies memory loss and Denies seizure-like activity Psychiatric: Denies abnormal sleep pattern, Denies anxiety and Denies memory loss Endocrine: Denies excessive sweating, Denies fatigue and Denies heat intolerance Hematologic/Lymphatic: Denies easy bruising Allergic/Immunologic: Denies itchy eyes, Denies seasonal rhinorrhea and Denies wheezing Physical Exam Vital Signs: Vital Signs: Last Vital Signs Temp 97.3 F 09/29/20 07:23 Pulse 58 09/29/20 07:52 Resp 18 09/29/20 07:23 BP 114/49 L 09/29/20 07:23 Pulse Ox 97 09/29/20 07:23 Body Mass Index 23.1 Const: General: alert Neck: Neck: Yes normal visual inspection, Yes full ROM and Yes no lymphadenopathy Chest: Chest palpation & inspection: normal inspection of the chest Resp: Auscultation: diminished lung sounds Cardio: Rate: regular rate Rhythm: regular rhythm Heart sounds: S1 normal heart sound present and S2 normal heart sound present GI: Palpation (GI): Soft to palpation and nontender Auscultation: normal bowel sounds Skin: General skin exam: rashes and/or lesions noted Procedures Date of Service Date of Service: 09/29/20 Assessment and Plan Assessment and plan (1) Pneumonia: Status: Acute (2) Upper airway cough syndrome: Status: Acute (3) Fungal pneumonia: Status: Acute (4) ILD (interstitial lung disease): Status: Acute (5) Ankylosing spondylitis: Status: Acute Assessment and Plan: ok to d/c home on PO Voricanozole Will send Cough suppressant F/U with Dr Galvan in 1-2 weeks Time Spent With Patient Time: Total time spent is greater than 50% in coordination of care (as documented) at patient's floor/unit and/or counseling patient: Time with patient: 15 - 24 minutes Progress Note: Quality Stroke Does the patient have a stroke diagnosis?: No
[2020-09-29] MEDS: Lidocaine 4 % Patch ADH..PATCH 1 PATCH TRANSDERMA (09:35)
[2020-09-29] MEDS: Aspirin Enteric Coated 81 MG TABLET.DR PO (09:35)
[2020-09-29] MEDS: Enoxaparin Sodium 40 MG/0.4 ML SYRINGE SUBCUT (09:36)
[2020-09-29] MEDS: Urea 15 GM POWDER PO (09:36)
[2020-09-29] MEDS: guaiFENesin DM 100/10/5 ML 5 ML SYRUP PO (09:38)
[2020-09-29] MEDS: Benzonatate 100 MG CAPSULE 200 MG PO (09:38)
[2020-09-29] MEDS: Acetaminophen 325 MG TABLET 650 MG PO (09:39)
[2020-09-29] MEDS: Fluticasone Propionate Nasal 16 GM SPRAY 2 SPRAY NOSTRIL-B (09:41)
--- NOTE | 2020-09-29 11:22 | PM.DS ---
DS: Providers Provider Date of Service: 09/29/20 Date of admission: 09/22/20 20:15 Date of discharge: 09/29/20 Primary care physician: Aime Degroot DO Admitting clinician: Jaquan Jimenez Attending physician on admission: Jaquan Jimenez Consults: 09/22/20 10:15 Consult to Infectious Diseases Stat Consulting Provider: Carly Pace Reason for consultation: fungal PNA, aspergilluss & Kathy albicans Has provider been notified: Yes 09/22/20 13:55 Consult to Infectious Diseases Stat Consulting Provider: Carly Pace Reason for consultation: Restricted Antifungal use 09/23/20 07:54 Consult to Infectious Diseases Routine Consulting Provider: Carly Pace Reason for consultation: Fungal PNA 09/27/20 09:30 Consult to Pulmonology Routine Consulting Provider: Kevin Rogers Reason for consultation: fungal pna Has provider been notified: No Attending physician on discharge: Aram Alarcon Discharging clinician: Marcy Rogers DS: Diagnosis Discharge Diagnosis (1) Fungal pneumonia: Status: Acute (2) Upper airway cough syndrome: Status: Acute (3) ILD (interstitial lung disease): Status: Acute (4) Ankylosing spondylitis: Status: Acute DS: Medications Discharge Medications Home Medications: Home Medications Medication Instructions Recorded Confirmed aspirin 81 mg tablet,delayed 81 mg PO DAILY 03/10/20 09/22/20 release carbamazepine 200 mg tablet 600 mg PO BID 03/10/20 09/22/20 cetirizine 10 mg tablet 10 mg PO DAILY PRN 03/10/20 09/22/20 fluticasone propionate 50 2 spray INTRANASAL DAILY 03/10/20 09/22/20 mcg/actuation nasal spray,suspension (Flonase Allergy Relief) omeprazole 20 mg capsule,delayed 20 mg PO DAILY@0630 03/10/20 08/04/20 release simvastatin 20 mg tablet 20 mg PO BEDTIME 03/10/20 08/04/20 urea 15 gram oral powder packet 1 packet PO DAILY 08/04/20 09/22/20 Previous Rx's Medication Instructions Recorded cane #1 ea 08/03/20 albuterol sulfate 2.5 mg INHALATION QID #0 ml 08/09/20 benzonatate 100 mg capsule 200 mg PO TID PRN 14 Days #84 cap 08/09/20 voriconazole 200 mg tablet 400 mg PO Q12H #56 tab 09/29/20 DS: Summary Hospital Course Hospital Course: HP as per admitting provider 59-year-old gentleman, lifetime nonsmoker, with underlying history of ankylosing spondylitis followed by Rheumatology now on Remicade, history of organizing pneumonia with? chronic productive cough, and dyspnea on exertion, however not on home O2.? Patient has recently been hospitalized at [facility]? and during that stay undwent bronchoscopy on 08/06 taht showed inflammed bronchial mucosa with copious secretions.? BAL sent- routine/fungal/AFB cultures? grew filamentous fungus and yeast therefore patient started on Diflucan 200 mg.? His symptoms of cough and dyspnea have improved significantly on fluconazole and he has been switched to itraconazole 2 weeks prior for? anti aspergillosis therapy.? Unfortunately over the last several weeks his symptoms? have been getting worse including dyspnea and cough intermittently productive of yellowish sputum.? He was seen in the pulmonary clinic today and? was sent to the ED for IV Abx and antifungal meds. He is afebrile, WBC normal. CXR?Continued some right lower lobe bronchial mucous plugging with end bronchial disease with tree-in-bud configuration.? Resolution of previous regions of disease within the lingula and left? lower lobe. Mild bronchiectasis . Fungal pneumonia. Had bronchoscopy 08/06 and bronchial washing cx showed fungus and yeast. He was started on Diflucan. he was then switched to Itraconazole for anti aspergillosis therapy. He had been getting worse and came to the ED for treatment. He was seen by pulmonology and infectious disease. He was started on IV Voriconazole?for a total of 7 days. He was not noted to be septic during the admission. His Chest CT from 09/28 was improved from admission. He also felt better. He will be sent home with 14 days of oral Voriconazole and follow up with final inspector truck trailer for possible repeat bronchoscopy. ? Time Spent with Patient Time attestation: Total time spent providing and/or coordinating discharge services: Discharge coordination time: Greater than 30 minutes Quality: Stroke Does the patient have a stroke diagnosis?: No Physical Exam Vital Signs: Vital Signs: Last Vital Signs Temp 97.3 F 09/29/20 07:23 Pulse 58 09/29/20 07:52 Resp 18 09/29/20 07:23 BP 114/49 L 09/29/20 07:23 Pulse Ox 97 09/29/20 07:23 Body Mass Index 23.1 Appearing in no acute distress head is normocephalic atraumatic eyes pupils are PERRLA sclera is anicteric mouth throat mucous membranes are intact and moist neck is supple no lymphadenopathy, no JVD noted lung sounds dim heart regular rate rhythm, clear S1, S2 positive bowel sounds, abdomen is soft, nontender neuro patient is alert x3, no focal deficits DS: Data Data Completed and Pending Completed studies during hospitalization [Text1]: Procedures Drainage of Right Middle Lung Lobe, Via Natural or Artificial Opening Endoscopic, Diagnostic (08/04/20) Discharge Plan Discharge Anticipated Discharge Date/Time: 09/29/20 11:16 Patient Disposition: Home, Self-Care Discharge Diagnosis: Fungal PNA Referrals: Aime Degroot DO [Primary Care Provider] - 1 Week Brennan Chapman MD [Physician] - 1 Week Discharge Medications: New voriconazole 200 mg tablet 400 mg PO Q12H Qty: 56 RF: 0 Continued urea 15 gram Powder In Packet 1 packet PO DAILY RF: 0 albuterol sulfate 2.5 mg /3 mL (0.083 %) Solution For Nebulization 2.5 mg INHALATION QID Qty: 0 RF: 0 benzonatate 100 mg Capsule 200 mg PO TID PRN (Reason: cough) 14 Days Qty: 84 RF: 0 (DME) cane Device See Rx Instructions .ROUTE .MEDSUPPLY Qty: 1 RF: 0 cetirizine 10 mg tablet 10 mg PO DAILY PRN (Reason: Runny Nose) RF: 0 carbamazepine 200 mg tablet 600 mg PO BID RF: 0 omeprazole 20 mg capsule,delayed release(DR/EC) 20 mg PO DAILY@0630 RF: 0 fluticasone propionate [Flonase Allergy Relief] 50 mcg/actuation spray,suspension 2 spray intranasal DAILY RF: 0 simvastatin 20 mg tablet 20 mg PO BEDTIME RF: 0 aspirin 81 mg tablet,delayed release (DR/EC) 81 mg PO DAILY RF: 0 Discontinued itraconazole 100 mg capsule 200 mg PO BID 30 Days Qty: 120 RF: 4 Discharge Orders: Discharge Order (Routine); Ordered 09/29/20 Ordered By: Marcy Rogers Diet: advance to usual diet Activity on Discharge: As tolerated Stand Alone Forms: Patient Portal Discharge page Care Plan Goals: Resolution of fungal pneumonia Health Concerns: Fungal pneumonia Plan of Treatment: Follow up with your final inspector truck trailer continue taking the Voriconazole for 14 days Assessment: See
[2020-09-29 11:29] VITALS: PULSE 60; O2SAT 94
[2020-09-29 15:27] LABS: Mycoplasma Pneumoniae - IgM 28 U/mL (<770)
== END 2020-09-29 12:49 | disposition home or self-care (01) | DRG 139 ==
LOC: HO.ED 12:24 → HO.EDOVER 20:49 → HO.S3 20:54
PROVIDERS: Hospitalist; Internal Medicine; Internal Medicine Pulmonary Disease; Nurse Practitioner Acute Care; Physician Assistant; Admitting Provider Internal Medicine; Emergency Provider Emergency Medicine Emergency Medical Services; PCP Internal Medicine; Visit Provider Family Medicine
DX: J16.8 Pneumonia due to other specified infectious organisms (principal); J96.01 Acute respiratory failure with hypoxia; M45.9 Ankylosing spondylitis of unspecified sites in spine; J84.9 Interstitial pulmonary disease, unspecified; E87.1 Hypo-osmolality and hyponatremia; G54.0 Brachial plexus disorders; K21.9 Gastro-esophageal reflux disease without esophagitis; Z20.822 Contact with and (suspected) exposure to COVID-19; Z79.51 Long term (current) use of inhaled steroids; Z88.5 Allergy status to narcotic agent; Z79.82 Long term (current) use of aspirin; Z79.899 Other long term (current) drug therapy
CPT/HCPCS: 0241U; 36415; 71250; 80048; 80076; 81001; 83605; 83735; 83880; 84145; 84484; 85025; 85027; 85610; 85730; 86140; 86738; 87040; 87071; 93005; 94640; 94644; 96365; 96367; 96375; 99285; 99291; J1650; J2543; J2930; J3465

== ENCOUNTER → 2020-10-12 09:18 | Outpatient (BNVA) | payer OTHER, SELFPAY | PROVIDERS: PCP Internal Medicine; Visit Provider Internal Medicine Pulmonary Disease | DX: J84.9 Interstitial pulmonary disease, unspecified (principal) ==

== ENCOUNTER → 2020-11-09 10:49 | Outpatient (BNVA) | payer OTHER, SELFPAY | PROVIDERS: PCP Internal Medicine; Visit Provider Internal Medicine Pulmonary Disease ==

== ENCOUNTER → 2020-11-17 14:46 | Outpatient (BNVA) | payer OTHER, SELFPAY | PROVIDERS: PCP Internal Medicine; Visit Provider Internal Medicine Pulmonary Disease ==

== ENCOUNTER 2020-11-25 10:26 | Outpatient (REF) | payer OTHER, SELFPAY ==
[2020-11-25 10:56] LABS: Basophils Percent Auto 0.3 % (0-2); Eosinophils Percent Auto 0.2 % (0-4); Hematocrit 40.9 % (42-52); Hemoglobin 13.5 g/dl (14.0-18.0); Imm Gran Abs Auto 0.11 X10*3/uL (0.00-0.03); Imm Gran Pct Auto 1.3 % (0.0-0.4); Lymphocytes Absolute Auto 0.5 X10*3/uL (1.2-4.9); Lymphocytes Percent Auto 6.1 % (20-40); MANUAL DIFF FLAG SCAN; Mean Corpuscular Hemoglobin 32.2 pg (27.0-33.0); Mean Corpuscular Volume 97.6 fL (80-98); Mean Platelet Volume 8.9 fL (9.4-12.4); Monocytes Absolute Auto 0.1 X10*3/uL (0.1-1.2); Monocytes Percent Auto 1.4 % (2-11); Neutrophils Absolute Auto 7.9 X10*3/uL (2.0-8.3); Neutrophils Percent Auto 90.7 % (45-73); Platelet Count 218 X10*3/uL (160-400); Red Blood Count 4.19 X10*6/uL (4.60-5.80); Red Cell Distribution Width 12.5 % (11.0-16.0); SCAN SMEAR FLAG 1; White Blood Count 8.7 X10*3/uL (4.8-10.8)
[2020-11-25 11:06] LABS: INTERNATIONAL NORM RATIO 1.1 (0.9-1.1)
[2020-11-25 11:22] LABS: SLIDE REVIEW VERIFIED
== END 2020-11-25 10:27 | disposition home or self-care (01) ==
LOC: HO.LAB 10:26
PROVIDERS: PCP Internal Medicine; Visit Provider Internal Medicine Pulmonary Disease
DX: J16.8 Pneumonia due to other specified infectious organisms (principal); B49 Unspecified mycosis
CPT/HCPCS: 36415; 85025; 85610

== ENCOUNTER 2020-12-02 08:05 | Outpatient (REF) | payer OTHER, SELFPAY ==
--- NOTE | 2020-12-02 09:43 | P.PICC_ITS ---
PICC Line Insertion NPICC Diagnosis: FUNGAL PNEUMONIA Indication: CUSTODIAL IV ANTIFUNGAL Pertinent Labs: REVIEWED Technique: Following informed consent including risks, benefits and alternatives and using sterile technique including cap and mask, sterile gown, glove and drape, the RIGHT arm was prepped and draped in the usual sterile fashion of full barrier technique with CHG (HX THORASIC OUTLET SYNDROME TO LEFT SIDE PER PT, HENCE RIGHT SIDED INSERTION). Following completion of [place] Protocol the skin and soft tissues were anesthetized with 1% Lidocaine plain. Using ultrasound guidance, CEPHALIC vein access was obtained IN SINGLE ATTEMPT BY THIS RN. Over an 0.018 wire through peel-away sheath, a 4-ARMENIAN, SINGLE LUMEN, PASV PICC line was positioned. Catheter length is 38 CM internal length, 0 CM external length, for a total trimmed length of 38 CM. The procedure was performed in [facility]. Tip verification was performed by Ruam Taylor with Sherlock 3CG. Tip located in SVC. Ultrasound was used to document vein patency and for needle entry. A formal ultrasound picture and cardiac rhythm strip was recorded. Vascular Cat Scan Technologist has released the line for use and it is currently dressed with a StatLock, Tegaderm, and CHG disc. Verification has been performed for blood return and line patency. Arm Circumference: 31 CM Equipment: [employer] POWERYoubetmeC SOLO Catheter Type: SINGLE LUMEN, PASV, 4-ARMENIAN Lot #: [id number]
== END 2020-12-02 08:06 | disposition home or self-care (01) ==
LOC: HO.RADIR 08:05
PROVIDERS: PCP Internal Medicine; Visit Provider Internal Medicine Pulmonary Disease
DX: B49 Unspecified mycosis (principal); J17 Pneumonia in diseases classified elsewhere
CPT/HCPCS: 36573; C1751

== ENCOUNTER 2020-12-03 11:38 | Outpatient (REF) | payer OTHER, SELFPAY | END 2020-12-03 11:39 | disposition home or self-care (01) | LOC: HO.MDS 11:38 | PROVIDERS: Visit Provider Internal Medicine Pulmonary Disease | DX: Z45.2 Encounter for adjustment and management of vascular access device (principal) | CPT/HCPCS: 96523 ==

== ENCOUNTER 2020-12-07 07:11 | Outpatient (REF) | payer OTHER, SELFPAY | END 2020-12-07 07:12 | disposition home or self-care (01) | LOC: HO.MDS 07:11 | PROVIDERS: Visit Provider Hospitalist | DX: B49 Unspecified mycosis (principal); J17 Pneumonia in diseases classified elsewhere | CPT/HCPCS: 96365; J2248 ==

== ENCOUNTER → 2020-12-15 09:01 | Outpatient (BNVA) | payer OTHER, SELFPAY | PROVIDERS: PCP Internal Medicine; Visit Provider Internal Medicine Pulmonary Disease ==

== ENCOUNTER → 2020-12-29 10:14 | Outpatient (BNVA) | payer OTHER, SELFPAY | PROVIDERS: PCP Internal Medicine; Visit Provider Internal Medicine Pulmonary Disease ==

== ENCOUNTER → 2021-01-27 10:36 | Outpatient (BNVA) | payer OTHER, SELFPAY | PROVIDERS: PCP Internal Medicine; Visit Provider Internal Medicine Pulmonary Disease ==

== ENCOUNTER → 2021-02-24 09:31 | Outpatient (BNVA) | payer OTHER, SELFPAY | PROVIDERS: PCP Internal Medicine; Visit Provider Internal Medicine Pulmonary Disease ==

== ENCOUNTER → 2021-04-07 09:08 | Outpatient (BNVA) | payer OTHER, SELFPAY | PROVIDERS: PCP Internal Medicine; Visit Provider Internal Medicine Pulmonary Disease ==

== ENCOUNTER 2021-04-22 13:52 | Outpatient (REF) | payer OTHER, SELFPAY ==
--- NOTE | ~2021-04-22 | CT_ITS ---
EXAMINATION: CT CHEST WITHOUT CONTRAST CLINICAL INFORMATION: Interstitial pulmonary disease COMPARISON: Previous chest CT most recent September 2020 TECHNIQUE: Multidetector volumetric CT imaging of the chest was done. Axial MIP volume rendering provided. Sagittal and coronal reformatted images were obtained. This CT examination was performed using dose optimization techniques as appropriate, variously including the following: *Automated exposure control *Adjustment of mA and/or kV according to patient size (this includes techniques or standardized protocols for targeted exams where dose is matched to indication/reason for exam; i.e. extremities or head) *Use of iterative reconstruction technique DLP: 192 mGy-cm FINDINGS: LUNGS: The previously identified clustered groundglass attenuation and semisolid right lower lobe nodules 2020 exam are no longer seen. There is question of a small 3 mm perivascular left upper lobe nodule versus dilated bronchus with some partial soft tissue opacification axial image 97 series 6 that is stable. No other evidence of bronchiectasis or mucus plugging is seen. No evidence of interstitial lung disease or emphysema is seen. There is no endobronchial or endotracheal lesion. MEDIASTINUM: There is mild coronary artery calcification. There are small mediastinal lymph nodes. The mediastinum is otherwise normal. PLEURA: There is no pleural effusion. No pleural mass or thickening. AXILLA: No lymphadenopathy. UPPER ABDOMEN: There is a small stone in the upper pole of the left kidney. OSSEOUS STRUCTURES: There are degenerative changes of the spine. CT/CT chest wo con IMPRESSION: Resolved airways disease and mild bronchiectasis from September 2020 exam. Fleischner guidelines were followed.
== END 2021-04-22 13:53 | disposition home or self-care (01) ==
LOC: HO.CT 13:52
PROVIDERS: PCP Internal Medicine; Visit Provider Internal Medicine Pulmonary Disease
DX: J84.9 Interstitial pulmonary disease, unspecified (principal)
CPT/HCPCS: 71250

== ENCOUNTER → 2021-06-07 08:43 | Outpatient (BNVA) | payer OTHER, SELFPAY | PROVIDERS: PCP Internal Medicine; Visit Provider Internal Medicine Pulmonary Disease | DX: Z13.89 Encounter for screening for other disorder (principal) ==

== ENCOUNTER → 2021-07-13 08:48 | Outpatient (BNVA) | payer OTHER, SELFPAY | PROVIDERS: PCP Internal Medicine; Visit Provider Internal Medicine Pulmonary Disease | DX: Z13.89 Encounter for screening for other disorder (principal) ==

== ENCOUNTER 2021-07-25 07:40 | Outpatient (REF) | payer OTHER, SELFPAY ==
--- NOTE | ~2021-07-25 | CT_ITS ---
EXAMINATION: CT CHEST WITHOUT CONTRAST CLINICAL INFORMATION: Interstitial pulmonary disease. COMPARISON: CT chest 04/22/2021 and 09/28/2020. TECHNIQUE: Multidetector volumetric CT imaging of the chest was done. Axial MIP volume rendering provided. Sagittal and coronal reformatted images were obtained. This CT examination was performed using dose optimization techniques as appropriate, variously including the following: *Automated exposure control *Adjustment of mA and/or kV according to patient size (this includes techniques or standardized protocols for targeted exams where dose is matched to indication/reason for exam; i.e. extremities or head) *Use of iterative reconstruction technique DLP: 205 mGy-cm FINDINGS: PACKAGING TECH: Well-inflated lungs. LUNGS: The lungs are well inflated with punctate 1 mm calcified nodules scattered throughout both upper and lower lobes. The largest calcified nodule measuring 3 mm on axial image 114/6. A noncalcified perivascular nodule peripherally based left upper lobe measures 3 mm and is unchanged. A 2 mm nodule left lower lobe superior segment axial image 109/6 is stable. No new pulmonary nodules seen. There is no interstitial thickening or branching tree pattern as was seen on several exams prior to this. There is no bronchiectasis. MEDIASTINUM: The thyroid lobes are symmetrical and normal. The central trachea and the bronchi are widely patent. Heart size and the great vessels are normal caliber. There is no pericardial effusion. There are small coronary artery calcifications present. Small shotty lymph nodes are seen in the precarinal space. PLEURA: There is no pleural effusion. No pleural mass or thickening. AXILLA: No lymphadenopathy. UPPER ABDOMEN: Visualized liver, spleen, pancreas and bilateral adrenal glands unremarkable. 2 mm radiopaque calculi upper pole left kidney. OSSEOUS STRUCTURES: No lytic or sclerotic process seen. There is mild anterior longitudinal calcification. CT/CT chest wo con IMPRESSION: Calcified and noncalcified pulmonary nodules largest measuring 3 mm are stable to previous exam. No interstitial thickening or bronchiectasis or branching tree pattern seen at this time. Fleischner guidelines were followed.
== END 2021-07-25 07:41 | disposition home or self-care (01) ==
LOC: HO.CT 07:40
PROVIDERS: Visit Provider Internal Medicine Pulmonary Disease
DX: J84.9 Interstitial pulmonary disease, unspecified (principal)
CPT/HCPCS: 71250

== ENCOUNTER 2021-10-04 09:39 | Outpatient (REF) | payer OTHER, SELFPAY ==
[2021-10-04 11:13] LABS: Rheumatoid Factor < 15.0 IU/mL (<15.0)
[2021-10-04 11:33] LABS: HIV AB/AG Nonreactive (Nonreactive); HIV Num 1 0.53 S/CO (0.00-0.99)
[2021-10-04 11:46] LABS: Erythrocyte Sedimentation Rate 4 MM/HR (0-15)
[2021-10-05 07:14] LABS: Syphilis Screen Nonreactive (Nonreactive)
[2021-10-06 04:45] LABS: Lyme Blot >10.00 index
[2021-10-06 10:01] LABS: Lyme Abs Screen POSITIVE
[2021-10-06 14:26] LABS: 18 KD (IgG) Band REACTIVE; 23 KD (IgG) Band REACTIVE; 23 KD (IgM) Band REACTIVE; 28 KD (IgG) Band NON-REACTIVE; 30 KD (IgG) Band NON-REACTIVE; 39 KD (IgM) Band NON-REACTIVE; 39KD (IgG) Band REACTIVE; 41 KD (IgM) Band NON-REACTIVE; 41KD (IgG) Band REACTIVE; 45 KD (IgG) Band REACTIVE; 58 KD (IgG) Band REACTIVE; 66 KD (IgG) Band NON-REACTIVE; 93 KD (IgG) Band REACTIVE; Lyme IgG Blot Interp POSITIVE (NEGATIVE); Lyme IgM Blot Interp NEGATIVE (NEGATIVE)
[2021-10-14 18:23] LABS: Acetylcholine Receptor Binding <0.30 nmol/L
[2021-10-18 23:22] LABS: Acetylcholine Recept. Blocking <15 (<15)
[2021-10-20 22:22] LABS: Acetylcholine Recep Modulating 17
== END 2021-10-04 09:40 | disposition home or self-care (01) ==
LOC: HO.LAB 09:39
PROVIDERS: Visit Provider Psychiatry & Neurology Neurology
DX: Z11.4 Encounter for screening for human immunodeficiency virus [HIV] (principal); Z11.3 Encounter for screening for infections with a predominantly sexual mode of transmission; R26.9 Unspecified abnormalities of gait and mobility
CPT/HCPCS: 36415; 82550; 83519; 85652; 86431; 86617; 86618; 86780; 87389

== ENCOUNTER → 2022-02-14 09:39 | Outpatient (BNVA) | payer OTHER, SELFPAY | PROVIDERS: PCP Physician Assistant Medical; Visit Provider Internal Medicine Pulmonary Disease | DX: R06.00 Dyspnea, unspecified (principal) ==

== ENCOUNTER 2022-03-27 09:00 | Outpatient (RCR) | payer OTHER, SELFPAY | END 2022-03-27 10:31 | disposition home or self-care (01) | LOC: HO.PT 09:00 | PROVIDERS: PCP Physician Assistant Medical; Visit Provider Physician Assistant Medical | DX: R26.81 Unsteadiness on feet (principal); M25.551 Pain in right hip; M25.552 Pain in left hip | CPT/HCPCS: 97110; 97112; 97140; 97162; 97530 ==

== ENCOUNTER → 2022-04-04 08:58 | Outpatient (REF) | payer OTHER, SELFPAY | LOC: HO.SL 08:58 | PROVIDERS: PCP Physician Assistant Medical; Visit Provider Internal Medicine Pulmonary Disease | DX: G47.33 Obstructive sleep apnea (adult) (pediatric) (principal) | CPT/HCPCS: 95806 ==

== ENCOUNTER → 2022-04-18 14:52 | Outpatient (BNVA) | payer OTHER, SELFPAY | PROVIDERS: PCP Physician Assistant Medical; Visit Provider Internal Medicine Pulmonary Disease | DX: R06.00 Dyspnea, unspecified (principal); J84.9 Interstitial pulmonary disease, unspecified; B49 Unspecified mycosis; J17 Pneumonia in diseases classified elsewhere | CPT/HCPCS: 94640 ==

== ENCOUNTER → 2022-05-10 09:18 | Outpatient (BNVA) | payer OTHER, SELFPAY | PROVIDERS: PCP Physician Assistant Medical; Visit Provider Internal Medicine Pulmonary Disease | DX: Z13.89 Encounter for screening for other disorder (principal) ==

== ENCOUNTER 2022-08-02 13:11 | Outpatient (REF) | payer OTHER, SELFPAY ==
--- NOTE | ~2022-08-02 | CT_ITS ---
EXAMINATION: CT ABDOMEN AND PELVIS WITHOUT CONTRAST CLINICAL INFORMATION: Kidney stone. Hematuria. COMPARISON: Previous KUB and renal ultrasound June 2022 TECHNIQUE: Multidetector volumetric imaging was performed from the superior aspect of the liver through the pubic symphysis. Sagittal and coronal reformatted images were obtained on the technologist's workstation. This CT examination was performed using dose optimization techniques as appropriate, variously including the following: *Automated exposure control *Adjustment of mA and/or kV according to patient size (this includes techniques or standardized protocols for targeted exams where dose is matched to indication/reason for exam; i.e. extremities or head) *Use of iterative reconstruction technique DLP: 569 mGy-cm FINDINGS: LUNG BASES: The visualized lung bases are unremarkable. LIVER, GALLBLADDER, AND BILIARY TREE: The liver is normal in size, shape, and attenuation. No focal hepatic lesion or biliary ductal dilatation is present. The gallbladder is unremarkable with no evidence of radiopaque gallstones, gallbladder wall thickening, or obvious pericholecystic inflammatory changes. PANCREAS: Unremarkable. SPLEEN: Small calcifications in the spleen. The spleen is otherwise normal. ADRENAL GLANDS: Unremarkable. KIDNEYS AND URETERS: There are 2 small stones in the lower pole the right kidney, largest measuring 2 mm. There is no right hydronephrosis. There is mild right ureteral dilatation from a 2 x 5 mm right mid ureteral stone. This may be similar in position previous KUB. No left renal stone. No left hydronephrosis or ureteral dilatation. BLADDER: Unremarkable. GASTROINTESTINAL TRACT: Mild diverticulosis of the colon. Small and large bowel is otherwise unremarkable. The appendix is not seen. ABDOMINAL WALL: No significant hernia is appreciated. LYMPH NODES: Normal. VASCULAR: Unremarkable. PELVIC VISCERA: Unremarkable. OSSEOUS STRUCTURES: Degenerative changes of the spine. CT/CT abdomen pelvis wo IV con IMPRESSION: Small right renal stones. Mild right proximal ureteral dilatation from a 2 x 5 mm right proximal ureteral stone. This may be similar to previous KUB June 2022 Fleischner guidelines were followed.
== END 2022-08-02 13:12 | disposition home or self-care (01) ==
LOC: HO.CT 13:11
PROVIDERS: Visit Provider Physician Assistant
DX: N20.0 Calculus of kidney (principal)
CPT/HCPCS: 74176

== ENCOUNTER → 2022-08-04 09:29 | Outpatient (BNVA) | payer OTHER, SELFPAY ==
[2022-08-04 09:30] VITALS: BMI 28.8
== END ==
PROVIDERS: PCP Physician Assistant Medical; Visit Provider Internal Medicine Pulmonary Disease

== ENCOUNTER 2022-08-08 07:37 | Outpatient (REF) | payer OTHER, SELFPAY ==
[2022-08-04 09:30] VITALS: BMI 28.8
[2022-08-08 07:48] LABS: MANUAL DIFF FLAG NO
[2022-08-08 08:06] LABS: Basophils Absolute Auto 0.1 X10*3/uL (0.0-0.2); Eosinophils Absolute Auto 0.1 X10*3/uL (0.0-0.4); Eosinophils Percent Auto 2.7 % (0-4); Hemoglobin 13.6 g/dl (14.0-18.0); Imm Gran Abs Auto 0.06 X10*3/uL (0.00-0.03); Imm Gran Pct Auto 1.1 % (0.0-0.4); Lymphocytes Absolute Auto 1.7 X10*3/uL (1.2-4.9); Lymphocytes Percent Auto 31.6 % (20-40); Mean Corpuscular Hemoglobin 34.7 pg (27.0-33.0); Mean Platelet Volume 8.4 fL (9.4-12.4); Monocytes Absolute Auto 0.3 X10*3/uL (0.1-1.2); Monocytes Percent Auto 5.2 % (2-11); Neutrophils Absolute Auto 3.1 x10*3/uL (2.0-8.3); Neutrophils Percent Auto 58.4 % (45-73); Platelet Count 188 X10*3/uL (160-400); Red Blood Count 3.92 X10*6/uL (4.60-5.80); Red Cell Distribution Width 14.4 % (11.0-16.0); White Blood Count 5.2 X10*3/uL (4.8-10.8)
[2022-08-08 08:47] LABS: Alanine Aminotransferase 86 U/L (0-40); Alkaline Phosphatase 41 U/L (39-117); Anion Gap 13 (12-20); Aspartate Amino Transferase 52 U/L (5-37); Bilirubin Direct 0.3 mg/dL (0.0-0.5); Bilirubin Total 1.2 mg/dL (0.0-1.0); Blood Urea Nitrogen 10 mg/dL (9-16); Calcium 9.3 mg/dL (8.4-10.2); Carbon Dioxide 27 mmol/L (22-29); Chloride 106 mmol/L (96-108); Estimated Glomerular Filt Rate > 60; Glucose Random 114 mg/dL (60-115); Potassium 4.5 mmol/L (3.3-5.1); Sodium 141 mmol/L (135-145); Total Protein 6.3 g/dL (6.5-8.0)
== END 2022-08-08 07:38 | disposition home or self-care (01) ==
LOC: HO.LAB 07:37
PROVIDERS: PCP Physician Assistant Medical; Visit Provider Internal Medicine Pulmonary Disease
DX: J84.9 Interstitial pulmonary disease, unspecified (principal)
CPT/HCPCS: 36415; 80048; 80076; 85025

== ENCOUNTER 2022-09-12 07:23 | Outpatient (REF) | payer OTHER, SELFPAY ==
[2022-08-04 09:30] VITALS: BMI 28.8
[2022-09-12 08:09] LABS: Alanine Aminotransferase 87 U/L (0-40); Alkaline Phosphatase 50 U/L (39-117); Anion Gap 13 (12-20); Aspartate Amino Transferase 51 U/L (5-37); Bilirubin Direct 0.3 mg/dL (0.0-0.5); Bilirubin Total 0.9 mg/dL (0.0-1.0); Blood Urea Nitrogen 13 mg/dL (9-16); Calcium 9.1 mg/dL (8.4-10.2); Carbon Dioxide 26 mmol/L (22-29); Chloride 105 mmol/L (96-108); Estimated Glomerular Filt Rate > 60; Glucose Random 94 mg/dL (60-115); Potassium 4.1 mmol/L (3.3-5.1); Sodium 140 mmol/L (135-145); Total Protein 6.3 g/dL (6.5-8.0)
== END 2022-09-12 07:24 | disposition home or self-care (01) ==
LOC: HO.LAB 07:23
PROVIDERS: PCP Physician Assistant Medical; Visit Provider Internal Medicine Pulmonary Disease
DX: J84.9 Interstitial pulmonary disease, unspecified (principal)
CPT/HCPCS: 36415; 80048; 80076

== ENCOUNTER 2022-10-12 08:11 | Outpatient (REF) | payer OTHER, SELFPAY ==
[2022-08-04 09:30] VITALS: BMI 28.8
[2022-10-12 10:29] LABS: Alanine Aminotransferase 210 U/L (0-40); Alkaline Phosphatase 59 U/L (39-117); Aspartate Amino Transferase 114 U/L (5-37); Bilirubin Total 1.2 mg/dL (0.0-1.0)
== END 2022-10-12 08:12 | disposition home or self-care (01) ==
LOC: HO.LAB 08:11
PROVIDERS: Visit Provider Internal Medicine Rheumatology
DX: M54.9 Dorsalgia, unspecified (principal)
CPT/HCPCS: 36415; 82247; 84075; 84450; 84460

== ENCOUNTER 2022-10-23 14:21 | Outpatient (REF) | payer OTHER, SELFPAY ==
[2022-08-04 09:30] VITALS: BMI 28.8
[2022-10-23 16:29] LABS: Alanine Aminotransferase 175 U/L (0-40); Alkaline Phosphatase 58 U/L (39-117); Aspartate Amino Transferase 85 U/L (5-37); Bilirubin Direct 0.3 mg/dL (0.0-0.5); Bilirubin Total 0.7 mg/dL (0.0-1.0); Total Protein 6.3 g/dL (6.5-8.0)
== END 2022-10-23 14:22 | disposition home or self-care (01) ==
LOC: HO.LAB 14:21
PROVIDERS: PCP Physician Assistant Medical; Visit Provider Internal Medicine Pulmonary Disease
DX: J84.9 Interstitial pulmonary disease, unspecified (principal)
CPT/HCPCS: 36415; 80076

== ENCOUNTER 2022-11-28 09:17 | Outpatient (AMB) | payer OTHER, SELFPAY ==
[2022-08-04 09:30] VITALS: BMI 28.8
[2022-11-28 09:19] VITALS: BP 104/66; PULSE 82; O2SAT 100; BMI 27.6
--- NOTE | 2022-11-28 09:19 | MHC.OFFVIS ---
Intake Vital Signs 11/28/22 09:19 Height 6 ft 2 in Weight 214 lb 15.211 oz BMI 27.6 BP 104/66 Blood Pressure Location Lt brachial Position Sitting Pulse 82 Pulse Source Doppler Pulse Oximetry (%) 100 Oxygen Delivery Method Room Air Intake Visit Reasons: copd/cough Allergies acetaminophen [From PERCOCET] Allergy (Unknown, Verified 11/28/22 09:22) VOMITING codeine [CODEINE] Allergy (Unknown, Verified 11/28/22 09:22) VOMITING oxycodone [From PERCOCET] Allergy (Unknown, Verified 11/28/22 09:22) VOMITING fluconazole Allergy (Verified 11/28/22 09:22) Unknown HPI copd/cough HPI Details 62-year-old? gentleman, lifetime nonsmoker, with underlying history of ankylosing? spondylitis followed by Rheumatology now on biologic, initially followed? for organizing pneumonia, chronic productive cough, and dyspnea on? exertion.? Patient previously hospitalized at [facility] with fungal pneumonia with Kathy and Aspergillus noted on? bronchial alveolar lavage cultures.? 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 consolidation therapy.? He has been discharged on voriconazole 400 twice a day and had improved symptom control, however he developed allergic reaction and required switching to IV micafungin.? He has had a total of 12 weeks weeks of IV micafungin therapy with significant improvement in his dyspnea and resolution of his productive cough.? Thereafter his PICC line was discontinued in January of 2021 and he completed pulmonary rehab.?Patient was switched to azathioprine and titrated slowly up to 200 mg daily with good control of his underlying pulmonary symptoms and titration off his chronic prednisone.? He denies any recent exacerbations. After the last office visit patient respiratory symptoms remained reasonably well controlled. However, he does complain of significant GI pain/discomfort. [facility] Medical History (Updated 04/18/22 @ 15:31 by Brennan Chapman MD) Blister (nonthermal) of other finger, initial encounter Upper airway cough syndrome COVID-19 vaccine series completed ILD (interstitial lung disease) Ankylosing spondylitis Thoracic outlet syndrome COPD (chronic obstructive pulmonary disease) Acute hyponatremia Ankylosing spondylitis Chronic cough Organizing pneumonia Dyspnea on exertion Pneumonia Bronchitis GERD (gastroesophageal reflux disease) Hyperlipidemia Pulmonary nodules Social History Household Members: None Housing: House Do you presently have visiting nurse or other home services: No Alcohol intake: never Patient Tobacco Use Status: Never used Tobacco Second Hand Smoke Exposure: Yes (35 yr exposure at home) Advance Directives Date on File: 07/29/20 service: No Current occupational status: employed Review of Systems Const Denies daytime sleepiness, Denies excessive sweating, Denies fatigue, Denies fever(s), Denies lethargy, Denies malaise, Denies night sweats, Denies snoring and Denies weight loss Eyes Denies blurry vision and Denies itchy eyes ENT Denies nasal congestion, Denies post nasal drip, Denies sinus pain, Denies sinus pressure and Denies other ( Thrush) Card Denies chest pain, Denies pedal edema, Denies dyspnea, Denies orthopnea and Denies paroxysmal nocturnal dyspnea Resp Denies cough, Denies hemoptysis, Denies excessive phlegm production, Denies dyspnea, Denies snoring and Denies wheezing GI Reports abdominal pain (Generalized over the lower abdomen) and Denies heartburn Musc Denies myalgias, Denies arthralgias and Denies joint swelling Skin/Breast Denies rash Neuro Denies memory loss and Denies seizure-like activity Psych Denies abnormal sleep pattern, Denies anxiety and Denies memory loss Endo Denies excessive sweating, Denies fatigue and Denies heat intolerance Yusuf/Lymph Denies easy bruising Aller/Immun Denies itchy eyes, Denies seasonal rhinorrhea and Denies wheezing Physical Exam Vital Signs: Last Vital Signs Pulse 82 11/28/22 09:19 BP 104/66 11/28/22 09:19 Pulse Ox 100 11/28/22 09:19 Oxygen Delivery Method Room Air 11/28/22 09:19 BMI result Body Mass Index 27.6 Const General: no acute distress and alert Nutritional Appearance: not obese Orientation/consciousness: Other orientation findings ( oriented) HEENT Head: Yes atraumatic Eyes General: appearance normal, both eyes and all related structures Sclerae: sclerae normal EOM: EOMs intact bilaterally Neck Neck: Yes supple Lymphatic: no lymphadenopathy noted Resp Effort & Inspection: normal respiratory effort and no use of accessory muscles Auscultation: clear to auscultation bilaterally Cardio Rate: regular rate Rhythm: regular rhythm Heart sounds: no gallops, no murmurs and no rubs Skin General skin exam: other ( warm) Extrem General: No clubbing, No cyanosis and No edema Assessment & Plan Assessment & Plan (1) ILD (interstitial lung disease): Code(s): J84.9 - Interstitial pulmonary disease, unspecified (2) Dyspnea on exertion: Code(s): R06.00 - Dyspnea, unspecified Plan Respiratory symptoms stable, however with development of diffuse lower abdominal pain that may be related to azathioprine. Will decrease azathioprine to 100 mg daily and reassess respiratory symptom control and possible GI side effects. Coding Level of Care Code Est Pt Level 4 (46264) Diagnoses ILD (interstitial lung disease) J84.9 Dyspnea on exertion R06.00
== END 2022-11-28 09:42 | disposition home or self-care (01) ==
PROVIDERS: PCP Physician Assistant Medical; Referring Provider Physician Assistant Medical; Visit Provider Internal Medicine Pulmonary Disease
DX: J84.9 Interstitial pulmonary disease, unspecified (principal); R06.00 Dyspnea, unspecified
CPT/HCPCS: 99214

== ENCOUNTER → 2022-11-28 09:17 | Outpatient (BNVA) | payer OTHER, SELFPAY ==
[2022-08-04 09:30] VITALS: BMI 28.8
== END ==
PROVIDERS: PCP Physician Assistant Medical; Visit Provider Internal Medicine Pulmonary Disease

== ENCOUNTER 2022-12-28 09:11 | Outpatient (REF) | payer OTHER, SELFPAY ==
[2022-12-18 15:57] VITALS: BMI 28.8
[2022-12-28 10:59] LABS: Cholesterol 138 mg/dL (<200); HDL Cholesterol 46 mg/dL (>40); LDL Cholesterol Calculated 81 mg/dL (<100); Triglycerides 59 mg/dL (<150)
== END 2022-12-28 09:12 | disposition home or self-care (01) ==
LOC: HO.LAB 09:11
PROVIDERS: PCP Physician Assistant Medical; Visit Provider Nurse Practitioner Family
DX: R06.02 Shortness of breath (principal); R06.09 Other forms of dyspnea; R07.9 Chest pain, unspecified; E78.00 Pure hypercholesterolemia, unspecified; M47.817 Spondylosis without myelopathy or radiculopathy, lumbosacral region; M45.9 Ankylosing spondylitis of unspecified sites in spine; M51.36 Other intervertebral disc degeneration, lumbar region; G89.4 Chronic pain syndrome; M53.3 Sacrococcygeal disorders, not elsewhere classified
CPT/HCPCS: 36415; 80061

== ENCOUNTER 2022-12-28 09:43 | Outpatient (AMB) | payer OTHER, SELFPAY ==
[2022-12-18 15:57] VITALS: BMI 28.8
--- NOTE | 2022-12-28 09:47 | A.OFFVIS_ITS ---
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 Accompanied by: Self / Same As Patient Allergies acetaminophen [From PERCOCET] Allergy (Unknown, Verified 11/28/22 09:22) VOMITING codeine [CODEINE] Allergy (Unknown, Verified 11/28/22 09:22) VOMITING oxycodone [From PERCOCET] Allergy (Unknown, Verified 11/28/22 09:22) VOMITING fluconazole Allergy (Verified 11/28/22:22) Unknown HPI ankylosing spondylitis 2 HPI0 Details Patient is a pleasant 62 years old male with history of ankylosing spondylitis of multiple sites in spine, thoracic spondylosis with myelopathy, parletoalveolar pneumopathy, bilateral sacroiliac joint pain, osteoarthritis, lumbar spondylosis, degeneration of lumbar intervertebral disc, lumbar radiculopathy presents today for initial evaluation of chronic low back pain and bilateral leg pain and worsening lower extremity weakness. Denies any recent trauma, injury or falls. He has been followed at [facility] and has received multiple injections including epidural, SI joint and lumbar facets with limited response. Denies previous spine surgery. 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 He was referred to our office for potential neuromodulation with PNS device. Back pain is localized to lower back and sacral areas with radiation to both legs, in L5- S1 distribution worse on the left. Patient reports leg burning and numbness is constant and worse at night. He also reports chronic left arm and left face numbness due to thoracic outlet syndrome. Denies any fever, abdominal pain, bladder or bowel dysfunction or saddle anesthesia. Location Mid and lower back radiating down bilateral legs, left worse than right Duration Chronic pain for many years Characteristics of symptom or complaint Aching, hot, burning, stabbing, sharp, numbness, stiffness Aggravating or associated factors Sitting (shooting in back) or walking, prolonged standing (leg pain) Relieving factors Walking and standing makes back pain better, Lyrica, cyclobenzaprine Treatment PT early this year, minimal improvement with balance. Injections at [facility] Medical History (Updated 12/31/22 @ 16:01 by CAROLYN Bower) Blister (nonthermal) of other finger, initial encounter Upper airway cough syndrome COVID-19 vaccine series completed ILD (interstitial lung disease) Ankylosing spondylitis Thoracic outlet syndrome COPD (chronic obstructive pulmonary disease) Acute hyponatremia Ankylosing spondylitis Chronic cough Organizing pneumonia Dyspnea on exertion Pneumonia Bronchitis GERD (gastroesophageal reflux disease) Hyperlipidemia Pulmonary nodules Social History Household Members: None Housing: House Do you presently have visiting nurse or other home services: No Alcohol intake: never Patient Tobacco Use Status: Never used Tobacco Second Hand Smoke Exposure: Yes (35 yr exposure at home) Advance Directives Date on File: 07/29/20 service: No Current occupational status: employed Review of Systems Const All systems reviewed & are unremarkable except as noted in HPI and below Physical Exam Vital Signs: Last Vital Signs Pulse 70 12/28/22 09:51 BP 135/65 12/28/22 09:51 Pulse Ox 96 12/28/22 09:51 Oxygen Delivery Method Room Air 12/28/22 09:51 BMI result Body Mass Index 27.0 General: Appears afebrile. Alert and oriented. Mood and affect appropriate. Follows and participates in conversation appropriately. Respiratory effort is unlabored. No cough. Able to transition from sit to stand unassisted. Ambulates with bilaterally normal heel strike and toe off, but reports imbalance with standing on his heels and pain standing on his toes. Back/Spine/Pelvis Other: Lumbar spine ROM limited due to balance. Antalagic gait with mild limping. Can flex forward to 60-70 degrees and extend to 5-10 degrees before experiencing lumbar pain. Demonstrates 5/5 strength of quadriceps bilaterally as well as flexion/dorsiflexion of bilateral feet against resistance. 2+ pedal pulses bilaterally. Seated straight leg rise with dorsiflexion negative bilaterally. +2 patellar and +1 achilles reflexes bilaterally. Facet loading test positive bilaterally. David sign, Ray?s, Gaenslen, Pelvic compression and Stinchfield tests are positive bilaterally. No groin pain with I/E hip rotations. Valsalva maneuver negative. Cervical Spine: cervical ROM normal and Cervical spine tenderness Thoracic/Lumbar Spine: thoracic and lumbar spine normal to inspection, No Thoracic/lumbar spine scar(s), Lasegue's sign negative, pain with thoraco-lumbar ROM, No paraspinal muscle tenderness, thoraco-lumbar ROM limited, No thoracic spinal tenderness and lumbar spinal tenderness (L4-S1) Pelvis: no buttock tenderness Sacroiliac joints: bilaterally tender to palpation Results Reviewed Results Reviewed: MRI PELVIS WITH AND WITHOUT CONTRAST 08/31/22 at [facility]ICAL INFORMATION: Lower extremity weakness. Ankylosing spondylitis. COMPARISON: CT 08/02/2022 FINDINGS: No sacroiliac joint effusions, marrow edema, or active erosions. Anterior bridging osteophytes are better demonstrated on the CT. Piriformis muscles are symmetric. No mass, mass effect, or abnormal enhancement along the lumbosacral plexus. No hip joint effusions. No stress reaction, fracture, or evidence of avascular necrosis. No acute muscle strain or tear. No adenopathy. No enhancing lesions or mass. No free pelvic fluid. The urinary bladder, visualized small and large bowel loops appear normal. Enthesopathy along the iliac crests, osteophytes along the acetabular rims, and enthesopathy of the greater trochanters is better demonstrated on the CT. IMPRESSION: No acute or suspicious findings. MR LUMBAR SPINE WITHOUT IV CONTRAST 05/13/2021 at [facility]ICAL INFORMATION: Intervertebral disc degeneration. Low back pain with significant lower extremity radicular symptoms. COMPARISON: Lumbar spine CT 10/19/2020. FINDINGS: There are 5 nonrib-bearing lumbar-type vertebral bodies. There are multilevel endplate osteophytes. Lumbar alignment is normal. The vertebral body heights are maintained. There is no bone marrow edema. There are no acute fractures. Disc desiccation at L1-L2 and L2-L3. There are no significant extraspinal soft tissue findings. Hypertrophic degenerative changes across the SI joints bilaterally. L1-L2: Disc contour is normal. Bilateral facet arthropathy. No central canal stenosis. There is mild foraminal encroachment bilaterally. L2-L3: There is a diffuse annular disc bulge and there is mild to moderate bilateral facet arthropathy and ligamentum flavum thickening. No central canal stenosis. There is mild foraminal encroachment bilaterally. L3-L4: Diffuse annular disc bulge and moderate bilateral hypertrophic facet arthropathy and ligamentum flavum thickening. No central canal stenosis. There is mild foraminal encroachment bilaterally. L4-L5: There is a diffuse annular disc bulge and there is moderate bilateral facet arthropathy and ligamentum flavum thickening. There is no central canal stenosis. There is mild foraminal encroachment bilaterally. L5-S1: Far right greater than left lateral disc osteophyte protrusions resulting in mass effect on the extraforaminal right greater than left L5 nerve roots. There is no central canal stenosis. IMPRESSION: At L5-S1, there are far right greater than left lateral disc osteophyte protrusions resulting in mass effect on the extraforaminal right greater than left L5 nerve roots. Additional spondylitic changes as discussed above. No severe central canal stenosis and no severe foraminal stenosis within the lumbar spine. EMG 08/17/22 Assessment & Plan Assessment & Plan (1) Lumbosacral spondylosis: Code(s): M47.817 - Spondylosis without myelopathy or radiculopathy, lumbosacral region (2) Ankylosing spondylitis: Code(s): M45.9 - Ankylosing spondylitis of unspecified sites in spine (3) Lumbar degenerative disc disease: Code(s): M51.36 - Other intervertebral disc degeneration, lumbar region (4) Chronic pain syndrome: Code(s): G89.4 - Chronic pain syndrome (5) Sacroiliac joint pain: Code(s): M53.3 - Sacrococcygeal disorders, not elsewhere classified Plan Lumbar spine imaging to assess degree of degenerative changes, any subluxation, listhesis, compression fractures or pars defects. Discussed interventional treatments for chronic low back pain with bilateral radiculopathy, including SCS trial and implant vs Sprint PNS trial. Informationl pamphlets provided. Tentatively plan for Bilateral Diagnostic L3-L4-L5 MBB with local and fluoroscopy. If he has significant relief from the diagnostic blocks for her axial low back pain, will consider either therapeutic injections, Sprint PNS or RFA depending on his preference. Patient is leaning towards lumbar medial branch RFA for a sustained pain relief, he understands this will not alleviate his leg pain which can be covered with SCS trial. Expectations, risks and benefits were reviewed. All questions were answered and the patient is in agreement of plan. Follow-up for xray results and sooner as needed. Orders: Orders 2 XR lumbar spine 4V min 12/29/22 M45.9 - Ankylosing spondylitis of unspecified sites in spine, M47.817 - Spondylosis without myelopathy or radiculopathy, lumbosacral region Coding Level of Care Code New Pt Level 4 (81077) Diagnoses Lumbosacral spondylosis M47.817 Ankylosing spondylitis M45.9 Lumbar degenerative disc disease M51.36 Chronic pain syndrome G89.4 Sacroiliac joint pain M53.3
[2022-12-28 09:51] VITALS: BP 135/65; PULSE 70; O2SAT 96; BMI 27.0
== END 2022-12-28 10:38 | disposition home or self-care (01) ==
PROVIDERS: PCP Physician Assistant Medical; Referring Provider Physician Assistant Medical; Visit Provider Nurse Practitioner Family
DX: M47.817 Spondylosis without myelopathy or radiculopathy, lumbosacral region (principal); M45.9 Ankylosing spondylitis of unspecified sites in spine; M51.36 Other intervertebral disc degeneration, lumbar region; G89.4 Chronic pain syndrome; M53.3 Sacrococcygeal disorders, not elsewhere classified
CPT/HCPCS: 99204

== ENCOUNTER 2023-01-09 08:03 | Outpatient (REF) | payer OTHER, SELFPAY ==
[2022-12-18 15:57] VITALS: BMI 28.8
[2023-01-09 08:40] LABS: Urine Cytology See Pathology rpt
[2023-01-09 09:30] LABS: Prostate Specific Antigen 0.66 ng/mL (<0.05-4.0)
== END 2023-01-09 08:04 | disposition home or self-care (01) ==
LOC: HO.LAB 08:03
PROVIDERS: Visit Provider Physician Assistant
DX: Z12.5 Encounter for screening for malignant neoplasm of prostate (principal); N40.1 Benign prostatic hyperplasia with lower urinary tract symptoms; R31.29 Other microscopic hematuria
CPT/HCPCS: 36415; 84153; 88112

== ENCOUNTER 2023-02-20 08:56 | Outpatient (AMB) | payer OTHER, SELFPAY ==
[2022-12-18 15:57] VITALS: BMI 28.8
[2023-02-20 09:05] VITALS: BP 102/58; PULSE 73; O2SAT 99; BMI 28.0
--- NOTE | 2023-02-20 09:05 | A.OFFVIS_ITS ---
Intake Vital Signs 02/20/23 09:05 Height 6 ft 2 in Weight 218 lb 4.122 oz BMI 28.0 BP 102/58 L Blood Pressure Location Lt brachial Position Sitting Pulse 73 Pulse Source Doppler Pulse Oximetry (%) 99 Oxygen Delivery Method Room Air Intake Visit Reasons: copd/cough Allergies acetaminophen [From PERCOCET] Allergy (Unknown, Verified 02/20/23 09:07) VOMITING codeine [CODEINE] Allergy (Unknown, Verified 02/20/23 09:07) VOMITING oxycodone [From PERCOCET] Allergy (Unknown, Verified 02/20/23 09:07) VOMITING fluconazole Allergy (Verified 02/20/23 09:07) Unknown HPI copd/cough HPI Details 62-year-old? 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 spondylitis followed by Rheumatology now on biologic, initially followed? for organizing pneumonia, chronic productive cough, and dyspnea on? exertion.? Patient previously hospitalized at [facility] with fungal pneumonia with Kathy and Aspergillus noted on? bronchial alveolar lavage cultures.? 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 consolidation therapy.? He has been discharged on voriconazole 400 twice a day and had improved symptom control, however he developed allergic reaction and required switching to IV micafungin.? He has had a total of 12 weeks weeks of IV micafungin therapy with significant improvement in his dyspnea and resolution of his productive cough.? Thereafter his PICC line was discontinued in January of 2021 and he completed pulmonary rehab.?Patient was switched to azathioprine and titrated slowly up to 200 mg daily with good control of his underlying pulmonary symptoms and titration off his chronic prednisone it that his respiratory symptoms are well controlled and GI side effects resolved. He denies any recent exacerbations. [facility] Medical History (Updated 12/31/22 @ 16:01 by CAROLYN Bower) Blister (nonthermal) of other finger, initial encounter Upper airway cough syndrome COVID-19 vaccine series completed ILD (interstitial lung disease) Ankylosing spondylitis Thoracic outlet syndrome COPD (chronic obstructive pulmonary disease) Acute hyponatremia Ankylosing spondylitis Chronic cough Organizing pneumonia Dyspnea on exertion Pneumonia Bronchitis GERD (gastroesophageal reflux disease) Hyperlipidemia Pulmonary nodules Social History Household Members: None Housing: House Do you presently have visiting nurse or other home services: No Alcohol intake: never Patient Tobacco Use Status: Never used Tobacco Second Hand Smoke Exposure: Yes (35 yr exposure at home) Advance Directives Date on File: 07/29/20 service: No Current occupational status: employed Review of Systems Const Denies daytime sleepiness, Denies excessive sweating, Denies fatigue, Denies fever(s), Denies lethargy, Denies malaise, Denies night sweats, Denies snoring and Denies weight loss Eyes Denies blurry vision and Denies itchy eyes ENT Denies nasal congestion, Denies post nasal drip, Denies sinus pain, Denies sinus pressure and Denies other ( Thrush) Card Denies chest pain, Denies pedal edema, Denies dyspnea, Denies orthopnea and Denies paroxysmal nocturnal dyspnea Resp Denies cough, Denies hemoptysis, Denies excessive phlegm production, Denies dyspnea, Denies snoring and Denies wheezing GI Denies abdominal pain and Denies heartburn Musc Reports myalgias and Reports arthralgias Skin/Breast Denies rash Neuro Denies memory loss and Denies seizure-like activity Psych Denies abnormal sleep pattern, Denies anxiety and Denies memory loss Endo Denies excessive sweating, Denies fatigue and Denies heat intolerance Yusuf/Lymph Denies easy bruising Aller/Immun Denies itchy eyes, Denies seasonal rhinorrhea and Denies wheezing Physical Exam Vital Signs: Last Vital Signs Pulse 73 02/20/23 09:05 BP 102/58 L 02/20/23 09:05 Pulse Ox 99 02/20/23 09:05 Oxygen Delivery Method Room Air 02/20/23 09:05 BMI result Body Mass Index 28.0 Const General: no acute distress and alert Nutritional Appearance: not obese Orientation/consciousness: Other orientation findings ( oriented) HEENT Head: Yes atraumatic Eyes General: appearance normal, both eyes and all related structures Sclerae: sclerae normal EOM: EOMs intact bilaterally Neck Neck: Yes supple Lymphatic: no lymphadenopathy noted Resp Effort & Inspection: normal respiratory effort and no use of accessory muscles Auscultation: clear to auscultation bilaterally Cardio Rate: regular rate Rhythm: regular rhythm Heart sounds: no gallops, no murmurs and no rubs Skin General skin exam: other ( warm) Extrem General: No clubbing, No cyanosis and No edema Assessment & Plan Assessment & Plan (1) ILD (interstitial lung disease): Code(s): J84.9 - Interstitial pulmonary disease, unspecified (2) Dyspnea on exertion: Code(s): R06.00 - Dyspnea, unspecified Plan Symptoms are now well controlled on azathioprine 100 mg daily without significant GI side effects. Continue current regimen. Coding Level of Care Code Est Pt Level 4 (91928) Diagnoses ILD (interstitial lung disease) J84.9 Dyspnea on exertion R06.00
== END 2023-02-20 09:18 | disposition home or self-care (01) ==
PROVIDERS: PCP Physician Assistant Medical; Visit Provider Internal Medicine Pulmonary Disease
DX: J84.9 Interstitial pulmonary disease, unspecified (principal); R06.00 Dyspnea, unspecified
CPT/HCPCS: 99214

== ENCOUNTER → 2023-02-20 08:56 | Outpatient (BNVA) | payer OTHER, SELFPAY ==
[2022-12-18 15:57] VITALS: BMI 28.8
== END ==
PROVIDERS: PCP Physician Assistant Medical; Visit Provider Internal Medicine Pulmonary Disease

== ENCOUNTER 2023-05-04 05:51 | Day surgery (SDC) | payer OTHER, SELFPAY ==
[2022-12-18 15:57] VITALS: BMI 28.8
--- NOTE | 2023-05-02 13:51 | P.CONAN_ITS ---
Documented by User: Shaniqua Quiros NP 05/02/23 13:54 HPI - Anesthesia Eval Consult details Narrative: 62yo M for Lumbar Spinal Cord Stimulation Trial [facility] Active Problems Active Problems: All Active Problems (Updated 12/31/22 @ 16:01 by CAROLYN Bower) Sacroiliac joint pain (Acute) Chronic pain syndrome (Acute) Lumbar degenerative disc disease (Acute) Ankylosing spondylitis (Acute) Lumbosacral spondylosis (Acute) Dyspnea on exertion (Acute) Blister (nonthermal) of other finger, initial encounter (Acute) ILD (interstitial lung disease) (Acute) Pneumonia (Acute) Upper airway cough syndrome (Acute) Fungal pneumonia (Acute) COVID-19 (Acute) Past Medical History Medical History (Updated 12/31/22 @ 16:01 by CAROLYN Bower) Blister (nonthermal) of other finger, initial encounter Upper airway cough syndrome COVID-19 vaccine series completed ILD (interstitial lung disease) Ankylosing spondylitis Thoracic outlet syndrome COPD (chronic obstructive pulmonary disease) Acute hyponatremia Ankylosing spondylitis Chronic cough Organizing pneumonia Dyspnea on exertion Pneumonia Bronchitis GERD (gastroesophageal reflux disease) Hyperlipidemia Pulmonary nodules Family History Family history of problems with anesthesia: No Surgical History History of Problems with Anesthesia: No Social History Social History Household Members: None Housing: House Do you presently have visiting nurse or other home services: No Alcohol intake: never Patient Tobacco Use Status: Never used Tobacco Second Hand Smoke Exposure: Yes (35 yr exposure at home) Use of substances other than those prescribed or required for medical reasons: No Are you DNR?: No Advance Directives: No Advance Directives Information Provided: Yes Advance Directives Date on File: 07/29/20 service: No Current occupational status: employed Meds Allergies Allergy/AdvReac Type Severity Reaction Status Date / Time gluten Allergy Severe Diarrhea Verified 05/04/23 06:31 acetaminophen [From PERCOCET] Allergy Unknown VOMITING Verified 05/04/23 06:31 codeine [CODEINE] Allergy Unknown VOMITING Verified 05/04/23 06:31 oxycodone [From PERCOCET] Allergy Unknown VOMITING Verified 05/04/23 06:31 fluconazole Allergy Unknown Verified 05/04/23 06:31 baclofen AdvReac Intermediate Nightmare Verified 05/04/23 06:31 Home Medications Medication Instructions Recorded Confirmed Last Taken Type aspirin 81 mg tablet,delayed 81 mg PO DAILY 03/10/20 09/22/20 09/22/20 History release cetirizine 10 mg tablet 10 mg PO DAILY PRN Runny Nose 03/10/20 09/22/20 09/22/20 History fluticasone propionate 50 2 spray intranasal DAILY 03/10/20 09/22/20 09/22/20 History mcg/actuation nasal spray,suspension (Flonase Allergy Relief) omeprazole 20 mg capsule,delayed 20 mg PO DAILY@0630 03/10/20 08/04/20 07/29/20 History release urea 15 gram oral powder packet 1 packet PO DAILY 08/04/20 09/22/20 09/22/20 History atorvastatin 10 mg tablet 10 mg PO DAILY 07/13/21 Unknown History albuterol sulfate 90 mcg/actuation 2 puff inhalation Q6H PRN 10/14/21 Unknown History aerosol inhaler diltiazem HCl 120 mg 120 mg PO DAILY 10/14/21 Unknown History capsule,extended release 24 hr, controlled trazodone 50 mg tablet 50 mg PO BEDTIME PRN 10/14/21 Unknown History atorvastatin 20 mg tablet 20 mg PO DAILY 04/18/22 Unknown History cyclobenzaprine 10 mg tablet 10 mg PO BEDTIME 04/18/22 Unknown History ondansetron HCl 8 mg tablet 8 mg PO TID 04/18/22 Unknown History ixekizumab 80 mg/mL subcutaneous mg subcut 11/28/22 Unknown History auto-injector (Taltz Autoinjector) tadalafil 5 mg tablet 5 mg PO DAILY 11/28/22 Unknown History Assessment and Plan Assessment Anesthesia Assessment: Chart Reviewed Final Anesthetic Review Family History of Problems with Anesthesia: No History of Problems with Anesthesia: No Documented by User: Ankit Burroughs MD 05/04/23 07:14 [facility] Past Medical History Medical History (Updated 12/31/22 @ 16:01 by CAROLYN Bower) Blister (nonthermal) of other finger, initial encounter Upper airway cough syndrome COVID-19 vaccine series completed ILD (interstitial lung disease) Ankylosing spondylitis Thoracic outlet syndrome COPD (chronic obstructive pulmonary disease) Acute hyponatremia Ankylosing spondylitis Chronic cough Organizing pneumonia Dyspnea on exertion Pneumonia Bronchitis GERD (gastroesophageal reflux disease) Hyperlipidemia Pulmonary nodules Social History Social History Household Members: None Housing: House Do you presently have visiting nurse or other home services: No Alcohol intake: never Patient Tobacco Use Status: Never used Tobacco Second Hand Smoke Exposure: Yes (35 yr exposure at home) Use of substances other than those prescribed or required for medical reasons: No Are you DNR?: No Advance Directives: No Advance Directives Information Provided: Yes Advance Directives Date on File: 07/29/20 service: No Current occupational status: employed Meds Allergies Allergy/AdvReac Type Severity Reaction Status Date / Time gluten Allergy Severe Diarrhea Verified 05/04/23 06:31 acetaminophen [From PERCOCET] Allergy Unknown VOMITING Verified 05/04/23 06:31 codeine [CODEINE] Allergy Unknown VOMITING Verified 05/04/23 06:31 oxycodone [From PERCOCET] Allergy Unknown VOMITING Verified 05/04/23 06:31 fluconazole Allergy Unknown Verified 05/04/23 06:31 baclofen AdvReac Intermediate Nightmare Verified 05/04/23 06:31 Home Medications Medication Instructions Recorded Confirmed Last Taken Type aspirin 81 mg tablet,delayed 81 mg PO DAILY 03/10/20 09/22/20 09/22/20 History release cetirizine 10 mg tablet 10 mg PO DAILY PRN Runny Nose 03/10/20 09/22/20 09/22/20 History fluticasone propionate 50 2 spray intranasal DAILY 03/10/20 09/22/20 09/22/20 History mcg/actuation nasal spray,suspension (Flonase Allergy Relief) omeprazole 20 mg capsule,delayed 20 mg PO DAILY@0630 03/10/20 08/04/20 07/29/20 History release urea 15 gram oral powder packet 1 packet PO DAILY 08/04/20 09/22/20 09/22/20 History atorvastatin 10 mg tablet 10 mg PO DAILY 07/13/21 Unknown History albuterol sulfate 90 mcg/actuation 2 puff inhalation Q6H PRN 10/14/21 Unknown History aerosol inhaler diltiazem HCl 120 mg 120 mg PO DAILY 10/14/21 Unknown History capsule,extended release 24 hr, controlled trazodone 50 mg tablet 50 mg PO BEDTIME PRN 10/14/21 Unknown History atorvastatin 20 mg tablet 20 mg PO DAILY 04/18/22 Unknown History cyclobenzaprine 10 mg tablet 10 mg PO BEDTIME 04/18/22 Unknown History ondansetron HCl 8 mg tablet 8 mg PO TID 04/18/22 Unknown History ixekizumab 80 mg/mL subcutaneous mg subcut 11/28/22 Unknown History auto-injector (Taltz Autoinjector) tadalafil 5 mg tablet 5 mg PO DAILY 11/28/22 Unknown History Exam Airway Mallampati Class: III TM Dist: >3cm Neck ROM: Full Loose/Missing/Broken Teeth: No Heart: rrr Lungs: cta b/l Assessment and Plan Final Anesthetic Review NPO: Yes ASA Class: II Final Preanesthetic Review: No Changes in Pt Med Stat, Meds/Allgs Chart Reviewed, Consent Obtained/Reviewed and Anes Risks/Benef Reviewed Procedure Risk: Low Anesthetic Plan Anesthetic Plan: MAC: Disposition: Standard PACU
--- NOTE | ~2023-05-04 | FL_ITS ---
EXAMINATION: XR FLUOROSCOPY WITH IMAGES CLINICAL INFORMATION: Lumbar Spinal Cord Stimulation Trial COMPARISON: Chest CT dated 02/24/2021 TECHNIQUE: Fluoroscopy Supervised By: Dr. Geronimo Kendall. Fluoroscopy Time: 6 minutes 30 seconds. Cumulative Dose: 154.97 mGy. DAP: 3 5.244 Gycm2. Images: 2 -AP and lateral views FL/FL guidance in OR FINDINGS/IMPRESSION: A radiologist was not present for this study. The intraprocedural images demonstrate a spinal cord stimulator projecting over the thoracic spine. There are multilevel degenerative changes with anterior bridging osteophytes that likely represents diffuse idiopathic skeletal hyperostosis.
[2023-05-04 06:19] VITALS: BMI 28.6
[2023-05-04 06:39] VITALS: BP 131/70; PULSE 63; RESP 16; TEMP 36.2; O2SAT 98
--- NOTE | 2023-05-04 07:22 | MHC.SHP ---
Pre-Procedural Eval Section A - 24 Hr Update-Section A only Date of Service: 05/04/23 The patient is an INPATIENT: No Changes since office visit: Yes Patient answered all questions The patient has been examined within 24 hours of the surgical procedure. The History & Physical has been completed within 30 days and I have reviewed it.: No Section B - Complete if H&P > 30 days Chief Complaint: Chronic pain syndrome,intervertebral disc Details of Present Illness: ankylosing spondylitis, chronic pain syndrome Relevant Social History: None Present Medications: None Medical History: No relevant PMH History of Previous Operations: No relevant previous surgery Allergies: Allergies Allergy/AdvReac Type Severity Reaction Status Date / Time gluten Allergy Severe Diarrhea Verified 05/04/23 06:31 acetaminophen [From PERCOCET] Allergy Unknown VOMITING Verified 05/04/23 06:31 codeine [CODEINE] Allergy Unknown VOMITING Verified 05/04/23 06:31 oxycodone [From PERCOCET] Allergy Unknown VOMITING Verified 05/04/23 06:31 fluconazole Allergy Unknown Verified 05/04/23 06:31 baclofen AdvReac Intermediate Nightmare Verified 05/04/23 06:31 Review of Systems Sugical H&P ROS: Negative: Constitution, Cardiovascular, Neurological, Psychiatric, Hem-Onc, Allergic/Immunologic, Gastrointestinal, Genitourinary, Integumentary, Endocrine and Eyes/Ears/Nose/Throat and Yes, Specify: Respiratory (interstitial lung disease.) and Musculoskeletal (ankylosing spondylitis) Exam Surgical H&P Exam: Normal: HEENT, Normal: Heart, Normal: Lungs, Normal: Extremities, Normal: Abdomen, Normal: Skin and Normal: Neurological Plan Diagnosis/Plan: Unchanged I have reviewed the history and physical and performed a pertinent physical examination on my patient. No changes have occurred unless specified.Trial of Spinal cord stimulation Nevro is planned todaay, risks and benefits carefully explained to the patient. Time Spent With Patient Time: Total time managing care of this patient today _5___ minutes.
[2023-05-04] MEDS: Lactated Ringers 1,000 ML 100 ML IVCONT (07:28)
[2023-05-04 09:17] VITALS: BP 117/68; PULSE 59; RESP 16; TEMP 36.6; O2SAT 100
--- NOTE | 2023-05-04 09:17 | P.OP_ITS ---
Operative Note Operative Note Date of Service: 05/04/23 Narrative: Moe is very pleasant 62 y.o. male who came to the operating room for trial of spinal cord stimulator Nevro for the treatment of ankylosing spondilitis and chronic pain syndrome. ?Preoperatively patient received ? cefazolin 3 g approximately 15 minutes before the procedure. After obtaining informed consent the patient was brought to the operating room, he was positioned prone on operating table, ASA monitors were applied and the patient was sedated. ?Time-out was performed delineating correct site, side, the nature of the procedure, patient's allergy, preoperative antibiotic if needed.? All operating room staff was participating in OR time-out procedure. Patient's entire back was prepped with Chloraprep twice and draped with full body fenestrated laparoscopy drape.? Sterilely draped C-arm was brought over operating field and square picture of the T12, L1 and L2 vertebrae? were demonstrated on the screen.? ?Attention FIRST? was concentrated on the T12-L1 epidural interspace. Right pedicle of the L2 was located on the screen and the projection of the pedicle was injected with 5 cc of lidocaine 2% mixture with ropivacaine 0.5% mixture 1- 1.After that 11 blade was used to make a melissa on the skin.? 10 cm 14 gauge? introducer epidural needle was inserted through the melissa and advanced to T12- L1 epidural interspace.? The advancement of the needle was performed on anterior posterior and lateral views.?Loss of resistance to air? technique were used to locate epidural space., guitar wire was used to confirm epidural space,epidural lead was inserted through the needle and? advanced to the projection of the top of T8 vertebral body strictly on the midline. Lateral view demonstrated posterior position of the lead. ? .? After that? the location of the projection of the LEFT pedicle center of the?L2 vertebras was found on the skin using C-arm.? This location was injected with mixture of lidocaine 2% and Marcaine 0.5% 5 cc.? After that 11 blade was used to make a melissa on the skin.? 10 cm 14 gauge introducer epidural needle was inserted through the melissa and advanced to T12-L1 epidural interspace.? The advancement of the needle was performed on anterior posterior and lateral views.? Guitar wire and loss of resistance to air technique were used to locate epidural space.? guitar wire was used to confirm epidural space,epidural lead was inserted through the needle and? advanced to the projection of the top T9 vertebral body left to the existing electrode. Lateral view was obtained demonstrating appropriate position of the electrode in the posterior epidural space. Impedance was checked? and it was found to be satisfactory.? Posterior lead placement was verified by lateral x-ray. ?The needles were withdrawn, the stylette wires were removed from the epidural leads.? The anchoring devices were dislodged on the leads and advanced to the level of the skin.? The anchoring devices were sutured with two 0-0 ?Silk sutures per each anchor to the skin of the patient. The central fixation screw of each anchor was rotated until three clicks were heard. The leads were connected to testing device.? Sterile dressing was applied to the patient's back.? The testing device was also taped to the patient's back.? the patient tolerated procedure well he was awaken and taken outside of the operating room to recovery room. he recovered uneventfully.
--- NOTE | 2023-05-04 09:24 | P.BOP_ITS ---
Brief Operative Note Date of Service: 05/04/23 Pre-op diagnosis: Ankylosing spondylitis, chronic pain syndrome Post-op diagnosis: same Procedure: Trial of Nevro SCS Implants: None permanent Surgeon: Geronimo Kendall MD Anesthesia: MAC Was an Diplomatic Interpreter used for this Procedure?: No Estimated blood loss (mL): 12 Condition: stable Disposition: PACU
[2023-05-04 09:33] VITALS: BP 112/65; PULSE 60; RESP 16; O2SAT 99
[2023-05-04 09:48] VITALS: BP 124/65; PULSE 62; RESP 17; TEMP 36.5; O2SAT 100
== END 2023-05-04 10:30 | disposition home or self-care (01) ==
PROVIDERS: PCP Physician Assistant Medical; Visit Provider Anesthesiology
PROC: (CPT 63650; principal; 2023-05-04 07:30)
DX: M51.36 Other intervertebral disc degeneration, lumbar region (principal); G89.4 Chronic pain syndrome; M47.817 Spondylosis without myelopathy or radiculopathy, lumbosacral region; M45.5 Ankylosing spondylitis of thoracolumbar region; M53.3 Sacrococcygeal disorders, not elsewhere classified; R26.89 Other abnormalities of gait and mobility; J44.9 Chronic obstructive pulmonary disease, unspecified; E78.5 Hyperlipidemia, unspecified; R91.8 Other nonspecific abnormal finding of lung field; Z88.5 Allergy status to narcotic agent; Z88.8 Allergy status to other drugs, medicaments and biological substances
CPT/HCPCS: 63650 ×2; C1713; C1897; J0690; J1100; J1596; J2250; J2405; J2704; J2795

== ENCOUNTER → 2023-05-04 05:51 | Outpatient (BNV) | payer OTHER, SELFPAY ==
[2022-12-18 15:57] VITALS: BMI 28.8
== END ==
PROVIDERS: PCP Physician Assistant Medical; Visit Provider Anesthesiology
DX: M51.36 Other intervertebral disc degeneration, lumbar region (principal)
CPT/HCPCS: 63650

== ENCOUNTER 2023-05-10 09:19 | Outpatient (AMB) | payer OTHER, SELFPAY ==
[2022-12-18 15:57] VITALS: BMI 28.8
--- NOTE | 2023-05-10 09:28 | MHC.OFFVIS ---
Intake Vital Signs 05/10/23 09:31 Height 6 ft 2 in Weight 223 lb BMI 28.6 BP 140/66 H Blood Pressure Location Rt brachial Position Sitting Pulse 65 Pulse Source Pulse Oximeter Pulse Oximetry (%) 97 Oxygen Delivery Method Room Air Intake Visit Reasons: S/p Nevro SCS Trial 05/04/23 Intake Note: Pain today 03/24 Magazine Designer Required: No Accompanied by: Self / Same As Patient Allergies gluten Allergy (Severe, Verified 05/10/23 09:32) Diarrhea acetaminophen [From PERCOCET] Allergy (Unknown, Verified 05/10/23 09:32) VOMITING codeine [CODEINE] Allergy (Unknown, Verified 05/10/23 09:32) VOMITING oxycodone [From PERCOCET] Allergy (Unknown, Verified 05/10/23 09:32) VOMITING fluconazole Allergy (Verified 05/10/23 09:32) Unknown baclofen Adverse Reaction (Intermediate, Verified 05/10/23 09:32) Nightmare HPI HPI Comments History of Present Illness Details Patient presents today status post Nevro SCS trial on with Dr. Kendall. Patient reports 85-90% pain relief during one week of SCS trial for his back pain and leg pain. Patient notices increased mobility, better functioning, better range of motion in his symptoms and better sleep. He reports being able to walk fully around the block without significant pain. Reports improved balanced and sleep through the night as well. Patient would like to proceed with an implant of SCS with Nevro. Mike farr from [employer] was also present during this encounter. The tape was removed. The stimulating battery pad was disconnected from the epidural leads. These sites of the insertion were cleansed with ChloraPrep and the suture was severed. The epidural leads were removed and the tips were intact. No erythema, swelling, tenderness or pathological discharge was noted. Bacitracin ointment, dry sterile and Tegaderm dressing were applied. Past Procedures: 05/04/23: Nevro SCS Trial-85-90% pain relief PRIOR: Patient is a pleasant 62 years old male with history of ankylosing spondylitis of multiple sites in spine, thoracic spondylosis with myelopathy, parletoalveolar pneumopathy, bilateral sacroiliac joint pain, osteoarthritis, lumbar spondylosis, degeneration of lumbar intervertebral disc, lumbar radiculopathy presents today for initial evaluation of chronic low back pain and bilateral leg pain and worsening lower extremity weakness. Denies any recent trauma, injury or falls. He has been followed at [facility] and has received multiple injections including epidural, SI joint and lumbar facets with limited response. Denies previous spine surgery. Patient is also followed by his PCP, automotive painter helper and rheumatology for continued increase in liver enzymes. He was referred to our office for potential neuromodulation with PNS device. Back pain is localized to lower back and sacral areas with radiation to both legs, in L5-S1 distribution worse on the left. Patient reports leg burning and numbness is constant and worse at night. He also reports chronic left arm and left face numbness due to thoracic outlet syndrome. Denies any fever, abdominal pain, bladder or bowel dysfunction or saddle anesthesia. Location Mid and lower back radiating down bilateral legs, left worse than right Duration Chronic pain for many years Characteristics of symptom or complaint Aching, hot, burning, stabbing, sharp, numbness, stiffness Aggravating or associated factors Sitting (shooting in back) or walking, prolonged standing (leg pain) Relieving factors Walking and standing makes back pain better, Lyrica, cyclobenzaprine Treatment PT early this year, minimal improvement with balance. Injections at [facility] Medical History Blister (nonthermal) of other finger, initial encounter Upper airway cough syndrome COVID-19 vaccine series completed ILD (interstitial lung disease) Ankylosing spondylitis Thoracic outlet syndrome COPD (chronic obstructive pulmonary disease) Acute hyponatremia Ankylosing spondylitis Chronic cough Organizing pneumonia Dyspnea on exertion Pneumonia Bronchitis GERD (gastroesophageal reflux disease) Hyperlipidemia Pulmonary nodules Social History Household Members: None Housing: House Do you presently have visiting nurse or other home services: No Alcohol intake: never Patient Tobacco Use Status: Never used Tobacco Second Hand Smoke Exposure: Yes (35 yr exposure at home) Advance Directives Date on File: 07/29/20 service: No Current occupational status: employed Review of Systems Const All systems reviewed & are unremarkable except as noted in HPI and below Physical Exam Vital Signs: Last Vital Signs Pulse 65 05/10/23 09:31 BP 140/66 H 05/10/23 09:31 Pulse Ox 97 05/10/23 09:31 Oxygen Delivery Method Room Air 05/10/23 09:31 General: Appears afebrile. Alert and oriented. Mood and affect appropriate. Follows and participates in conversation appropriately. Respiratory effort is unlabored. Able to transition from sit to stand unassisted. Uses cane with ambulation. Ambulates with bilaterally normal heel strike and toe off. Leads removed with tips intact. Results Reviewed Results Reviewed: MRI PELVIS WITH AND WITHOUT CONTRAST 08/31/22 at [facility] CLINICAL INFORMATION: Lower extremity weakness. Ankylosing spondylitis. COMPARISON: CT 08/02/2022 FINDINGS: No sacroiliac joint effusions, marrow edema, or active erosions. Anterior bridging osteophytes are better demonstrated on the CT. Piriformis muscles are symmetric. No mass, mass effect, or abnormal enhancement along the lumbosacral plexus. No hip joint effusions. No stress reaction, fracture, or evidence of avascular necrosis. No acute muscle strain or tear. No adenopathy. No enhancing lesions or mass. No free pelvic fluid. The urinary bladder, visualized small and large bowel loops appear normal. Enthesopathy along the iliac crests, osteophytes along the acetabular rims, and enthesopathy of the greater trochanters is better demonstrated on the CT. IMPRESSION: No acute or suspicious findings. MR LUMBAR SPINE WITHOUT IV CONTRAST 05/13/2021 at [facility] CLINICAL INFORMATION: Intervertebral disc degeneration. Low back pain with significant lower extremity radicular symptoms. COMPARISON: Lumbar spine CT 10/19/2020. FINDINGS: There are 5 nonrib-bearing lumbar-type vertebral bodies. There are multilevel endplate osteophytes. Lumbar alignment is normal. The vertebral body heights are maintained. There is no bone marrow edema. There are no acute fractures. Disc desiccation at L1-L2 and L2-L3. There are no significant extraspinal soft tissue findings. Hypertrophic degenerative changes across the SI joints bilaterally. L1-L2: Disc contour is normal. Bilateral facet arthropathy. No central canal stenosis. There is mild foraminal encroachment bilaterally. L2-L3: There is a diffuse annular disc bulge and there is mild to moderate bilateral facet arthropathy and ligamentum flavum thickening. No central canal stenosis. There is mild foraminal encroachment bilaterally. L3-L4: Diffuse annular disc bulge and moderate bilateral hypertrophic facet arthropathy and ligamentum flavum thickening. No central canal stenosis. There is mild foraminal encroachment bilaterally. L4-L5: There is a diffuse annular disc bulge and there is moderate bilateral facet arthropathy and ligamentum flavum thickening. There is no central canal stenosis. There is mild foraminal encroachment bilaterally. L5-S1: Far right greater than left lateral disc osteophyte protrusions resulting in mass effect on the extraforaminal right greater than left L5 nerve roots. There is no central canal stenosis. IMPRESSION: At L5-S1, there are far right greater than left lateral disc osteophyte protrusions resulting in mass effect on the extraforaminal right greater than left L5 nerve roots. Additional spondylitic changes as discussed above. No severe central canal stenosis and no severe foraminal stenosis within the lumbar spine. EMG 08/17/22 Assessment & Plan Assessment & Plan (1) Lumbosacral spondylosis: Code(s): M47.817 - Spondylosis without myelopathy or radiculopathy, lumbosacral region (2) Ankylosing spondylitis: Code(s): M45.9 - Ankylosing spondylitis of unspecified sites in spine (3) Lumbar degenerative disc disease: Code(s): M51.36 - Other intervertebral disc degeneration, lumbar region (4) Chronic pain syndrome: Code(s): G89.4 - Chronic pain syndrome (5) Sacroiliac joint pain: Code(s): M53.3 - Sacrococcygeal disorders, not elsewhere classified Plan Schedule for Lumbar SCS Implant with sedation and fluoroscopy given good relief seen from trial. Reviewed with the patient the risks and benefits of spinal cord stimulation implant in greater detail. Patient reports better mobility, better social interactions, better activities of daily living and improved sleep. All questions and concerns have been answered and patient agreed with the plan. Follow up after SCS implant and sooner as needed. Anticoagulation: Patient on anticoagulation (Aspirin) and instructions given on when to pause with prescribing physician permission. Justification for interventional therapy: ? Patient with average pain > 6/10 ? Patient has exhausted conservative therapy The risks, consequences, alternatives, and benefits of various treatment options were discussed with the patient in great detail, including conservative management, injections and procedures. Coding Level of Care Code Est Pt Level 4 (72010) Diagnoses Lumbosacral spondylosis M47.817 Ankylosing spondylitis M45.9 Lumbar degenerative disc disease M51.36 Chronic pain syndrome G89.4 Sacroiliac joint pain M53.3
[2023-05-10 09:31] VITALS: BP 140/66; PULSE 65; O2SAT 97; BMI 28.6
== END 2023-05-10 09:57 | disposition home or self-care (01) ==
PROVIDERS: PCP Physician Assistant Medical; Visit Provider Nurse Practitioner Family
DX: M47.817 Spondylosis without myelopathy or radiculopathy, lumbosacral region (principal); M45.9 Ankylosing spondylitis of unspecified sites in spine; M51.36 Other intervertebral disc degeneration, lumbar region; G89.4 Chronic pain syndrome; M53.3 Sacrococcygeal disorders, not elsewhere classified
CPT/HCPCS: 99024

== ENCOUNTER → 2023-05-10 09:19 | Outpatient (BNVA) | payer OTHER, SELFPAY ==
[2022-12-18 15:57] VITALS: BMI 28.8
== END ==
PROVIDERS: PCP Physician Assistant Medical; Visit Provider Nurse Practitioner Family

== ENCOUNTER 2023-05-31 14:00 | Outpatient (RCR) | payer OTHER, SELFPAY ==
[2022-12-18 15:57] VITALS: BMI 28.8
== END 2023-05-31 14:19 | disposition home or self-care (01) ==
LOC: HO.OT 14:00
PROVIDERS: PCP Physician Assistant Medical; Visit Provider Internal Medicine Rheumatology
DX: M77.11 Lateral epicondylitis, right elbow (principal)
CPT/HCPCS: 97035; 97110; 97140; 97165

== ENCOUNTER → 2023-07-20 05:52 | Day surgery (SDC) | payer OTHER, SELFPAY ==
[2022-12-18 15:57] VITALS: BMI 28.8
--- NOTE | 2023-07-19 11:54 | P.CONAN_ITS ---
Documented by User: Shaniqua Quiros NP 07/19/23 11:55 HPI - Anesthesia Eval Consult details Narrative: 62yo M for Spinal Cord Stimulation Implant s/p trial 04/2023 with [facility] Active Problems Active Problems: All Active Problems Sacroiliac joint pain (Acute) Chronic pain syndrome (Acute) Lumbar degenerative disc disease (Acute) Ankylosing spondylitis (Acute) Lumbosacral spondylosis (Acute) Dyspnea on exertion (Acute) Blister (nonthermal) of other finger, initial encounter (Acute) ILD (interstitial lung disease) (Acute) Pneumonia (Acute) Upper airway cough syndrome (Acute) Fungal pneumonia (Acute) COVID-19 (Acute) Past Medical History Medical History Blister (nonthermal) of other finger, initial encounter Upper airway cough syndrome COVID-19 vaccine series completed ILD (interstitial lung disease) Ankylosing spondylitis Thoracic outlet syndrome COPD (chronic obstructive pulmonary disease) Acute hyponatremia Ankylosing spondylitis Chronic cough Organizing pneumonia Dyspnea on exertion Pneumonia Bronchitis GERD (gastroesophageal reflux disease) Hyperlipidemia Pulmonary nodules Family History Family history of problems with anesthesia: No Surgical History History of Problems with Anesthesia: No Social History Social History Household Members: None Housing: House Do you presently have visiting nurse or other home services: No Alcohol intake: never Patient Tobacco Use Status: Never used Tobacco Second Hand Smoke Exposure: Yes (35 yr exposure at home) Use of substances other than those prescribed or required for medical reasons: No Are you DNR?: No Advance Directives: No Advance Directives Information Provided: Yes Advance Directives Date on File: 07/29/20 service: No Current occupational status: employed Meds Allergies Allergy/AdvReac Type Severity Reaction Status Date / Time gluten Allergy Severe Diarrhea Verified 05/10/23 09:32 acetaminophen [From PERCOCET] Allergy Unknown VOMITING Verified 05/10/23 09:32 codeine [CODEINE] Allergy Unknown VOMITING Verified 05/10/23 09:32 oxycodone [From PERCOCET] Allergy Unknown VOMITING Verified 05/10/23 09:32 fluconazole Allergy Unknown Verified 05/10/23 09:32 baclofen AdvReac Intermediate Nightmare Verified 05/10/23 09:32 Home Medications ?Medication ?Instructions ?Recorded ?Confirmed ?Last Taken ?Type aspirin 81 mg tablet,delayed 81 mg PO DAILY 03/10/20 07/20/23 09/22/20 History release cetirizine 10 mg tablet 10 mg PO DAILY PRN Runny Nose 03/10/20 07/20/23 09/22/20 History fluticasone propionate 50 2 spray intranasal DAILY 03/10/20 07/20/23 09/22/20 History mcg/actuation nasal spray,suspension (Flonase Allergy Relief) omeprazole 20 mg capsule,delayed 20 mg PO DAILY@0630 03/10/20 07/20/23 07/20/23 History release atorvastatin 10 mg tablet 10 mg PO DAILY 07/13/21 07/20/23 Unknown History albuterol sulfate 90 mcg/actuation 2 puff inhalation Q6H PRN Wheezing 10/14/21 07/20/23 Unknown History aerosol inhaler diltiazem HCl 120 mg 120 mg PO DAILY 10/14/21 07/20/23 07/20/23 History capsule,extended release 24 hr, controlled cyclobenzaprine 10 mg tablet 10 mg PO BEDTIME 04/18/22 07/20/23 Unknown History ondansetron HCl 8 mg tablet 8 mg PO TID 04/18/22 07/20/23 Unknown History pregabalin 100 mg capsule 100 mg PO BID 07/20/23 07/20/23 Unknown History Assessment and Plan Assessment Anesthesia Assessment: Chart Reviewed Final Anesthetic Review Family History of Problems with Anesthesia: No History of Problems with Anesthesia: No Documented by User: Ankit Burroughs MD 07/20/23 07:28 [facility] Past Medical History Medical History Blister (nonthermal) of other finger, initial encounter Upper airway cough syndrome COVID-19 vaccine series completed ILD (interstitial lung disease) Ankylosing spondylitis Thoracic outlet syndrome COPD (chronic obstructive pulmonary disease) Acute hyponatremia Ankylosing spondylitis Chronic cough Organizing pneumonia Dyspnea on exertion Pneumonia Bronchitis GERD (gastroesophageal reflux disease) Hyperlipidemia Pulmonary nodules Social History Social History Household Members: None Housing: House Do you presently have visiting nurse or other home services: No Alcohol intake: never Patient Tobacco Use Status: Never used Tobacco Second Hand Smoke Exposure: Yes (35 yr exposure at home) Use of substances other than those prescribed or required for medical reasons: No Are you DNR?: No Advance Directives: No Advance Directives Information Provided: Yes Advance Directives Date on File: 07/29/20 service: No Current occupational status: employed Meds Allergies Allergy/AdvReac Type Severity Reaction Status Date / Time gluten Allergy Severe Diarrhea Verified 05/10/23 09:32 acetaminophen [From PERCOCET] Allergy Unknown VOMITING Verified 05/10/23 09:32 codeine [CODEINE] Allergy Unknown VOMITING Verified 05/10/23 09:32 oxycodone [From PERCOCET] Allergy Unknown VOMITING Verified 05/10/23 09:32 fluconazole Allergy Unknown Verified 05/10/23 09:32 baclofen AdvReac Intermediate Nightmare Verified 05/10/23 09:32 Home Medications ?Medication ?Instructions ?Recorded ?Confirmed ?Last Taken ?Type aspirin 81 mg tablet,delayed 81 mg PO DAILY 03/10/20 07/20/23 09/22/20 History release cetirizine 10 mg tablet 10 mg PO DAILY PRN Runny Nose 03/10/20 07/20/23 09/22/20 History fluticasone propionate 50 2 spray intranasal DAILY 03/10/20 07/20/23 09/22/20 History mcg/actuation nasal spray,suspension (Flonase Allergy Relief) omeprazole 20 mg capsule,delayed 20 mg PO DAILY@0630 03/10/20 07/20/23 07/20/23 History release atorvastatin 10 mg tablet 10 mg PO DAILY 07/13/21 07/20/23 Unknown History albuterol sulfate 90 mcg/actuation 2 puff inhalation Q6H PRN Wheezing 10/14/21 07/20/23 Unknown History aerosol inhaler diltiazem HCl 120 mg 120 mg PO DAILY 10/14/21 07/20/23 07/20/23 History capsule,extended release 24 hr, controlled cyclobenzaprine 10 mg tablet 10 mg PO BEDTIME 04/18/22 07/20/23 Unknown History ondansetron HCl 8 mg tablet 8 mg PO TID 04/18/22 07/20/23 Unknown History pregabalin 100 mg capsule 100 mg PO BID 07/20/23 07/20/23 Unknown History Exam Airway Mallampati Class: II TM Dist: <=3cm Neck ROM: Full Loose/Missing/Broken Teeth: No Heart: rrr Lungs: cta Assessment and Plan Assessment Anesthesia Assessment: Anesthesia Plan Discussed Final Anesthetic Review NPO: Yes ASA Class: III Final Preanesthetic Review: No Changes in Pt Med Stat, Meds/Allgs Chart Reviewed, Consent Obtained/Reviewed and Anes Risks/Benef Reviewed Patient Risk: Intermediate Procedure Risk: Intermediate Anesthetic Plan Anesthetic Plan: GA Disposition: Standard PACU
--- NOTE | ~2023-07-20 | FL_ITS ---
EXAMINATION: XR FLUOROSCOPY WITH IMAGES CLINICAL INFORMATION: Spinal implant. COMPARISON: None available. TECHNIQUE: Fluoroscopy Supervised By: Dr. Kendall . Fluoroscopy Time: 7.06. Cumulative Dose: 15.24 mGy. DAP: 48.832 Gycm2. Images: 4. FINDINGS: Intraoperative fluoroscopy and spot films were performed during a procedure in the OR. 2 leads are seen, one at the top of T8 the other at the top of T9 Please see Dr. Kendall's report for complete details. FL/FL guidance in OR IMPRESSION: Intraoperative fluoroscopy and spot films were obtained. Please see Dr. Kendall's report for complete details.
[2023-07-20 06:20] VITALS: BP 111/62; PULSE 68; RESP 18; TEMP 36.3; O2SAT 100; BMI 28.8
[2023-07-20] MEDS: Lactated Ringers 1,000 ML 100 ML IVCONT (06:39)
[2023-07-20] MEDS: Albuterol Sulfate (0.083%) 2.5 MG/3 ML VIAL.NEB INHALE (06:45)
--- NOTE | 2023-07-20 06:48 | MHC.SHP ---
Pre-Procedural Eval Section A - 24 Hr Update-Section A only Date of Service: 07/20/23 The patient is an INPATIENT: No Changes since office visit: Yes Patient answered all questions The patient has been examined within 24 hours of the surgical procedure. The History & Physical has been completed within 30 days and I have reviewed it.: No Section B - Complete if H&P > 30 days Chief Complaint: Ankylosing spondylitis,chronic pain Details of Present Illness: as above Relevant Family History (Specify if Yes): No Relevant Social History: None Present Medications: None Medical History: No relevant PMH History of Previous Operations: No relevant previous surgery Allergies: Allergies Allergy/AdvReac Type Severity Reaction Status Date / Time gluten Allergy Severe Diarrhea Verified 05/10/23 09:32 acetaminophen [From PERCOCET] Allergy Unknown VOMITING Verified 05/10/23 09:32 codeine [CODEINE] Allergy Unknown VOMITING Verified 05/10/23 09:32 oxycodone [From PERCOCET] Allergy Unknown VOMITING Verified 05/10/23 09:32 fluconazole Allergy Unknown Verified 05/10/23 09:32 baclofen AdvReac Intermediate Nightmare Verified 05/10/23 09:32 Review of Systems Sugical H&P ROS: Negative: Constitution, Cardiovascular, Neurological, Psychiatric, Hem-Onc, Allergic/Immunologic, Gastrointestinal, Genitourinary, Integumentary, Endocrine and Eyes/Ears/Nose/Throat and Yes, Specify: Respiratory (IDL) and Musculoskeletal (as above) Exam Surgical H&P Exam: Normal: HEENT, Normal: Heart, Normal: Lungs, Normal: Extremities, Normal: Abdomen, Normal: Skin and Normal: Neurological Plan Diagnosis/Plan: Unchanged I have reviewed the history and physical and performed a pertinent physical examination on my patient. No changes have occurred unless specified. Time Spent With Patient Time: Total time managing care of this patient today ____ minutes.
--- NOTE | 2023-07-20 06:55 | PC.NURSE ---
sprint patient services representative at bedside.
--- NOTE | 2023-07-20 07:19 | W.PM.OPN ---
Operative Note Operative Note Date of Service: 07/20/23 Narrative: Implantation of spinal cord stimulator Shell Rosa is very pleasant 62 years old gentleman who came to the OR today today for implantation of spinal cord stimulator for the treatment of chronic pain syndrome, spondylosis of lumbar spine, disc degeneration lumbar. Preoperatively patient received cefazolin 3 g approximately 30 minutes before the procedure. After obtaining informed consent the patient was brought to the operating room, she was supine on the stretcher [employer] monitors were applied and general anesthesia was induced with endotracheal intubation. After that patient was transferred to the operating table prone all pressure points were protected. Time-out was performed delineating correct site, side, the nature of the procedure, patient's allergy, preoperative antibiotic if needed. All operating room staff was participating in OR time-out procedure. Patient's entire back was prepped with ChloraPrep twice and draped with full body fenestrated drape and ioban film. Sterilely draped C-arm was brought over operating field and square picture of [id number] and L2 vertebrae were demonstrated on the screen. The skin was infiltrated with the mixture of lidocaine 2% and ropivacaine 0.5% in the projection of L1-L2-L3 spinouse procesess. After that number 10 Blade scalpel was used to perform strict midline 11 cm long incision. the incision was widened and deepened until the prevertebral fascia was reached. Thorough hemostasis was obtained, After that attention was concentrated on the T12-L1 epidural interspace. The location of the projection of the right pedicle center of the L2 vertebra was found on the fascia using C-arm. 10 cm 14 gauge introducer epidural needle was inserted through the prevertebral fascia and advanced to T12-L1 epidural interspace. The advancement of the needle was performed on anterior posterior and lateral views. Guitar wire and loss of resistance technique were used to locate epidural space. When guitar wire was spread in the epidural fashion, epidural lead was inserted through the needle and it was advanced to the posterior epidural space. Unfortunately the needle continued to deviate to the lateral gutter the needle and the lead were withdrawn. I attempted to reach epidural space at T11-T12 interval using 6 inch long needle however the T11-T12 interval epidural space was completely ossified and I was sensing the needle getting against the bone at the center of the interlaminar space. The needle was withdrawn and after that coude needle 4 in long was used to reach T12-L1 epidural space again. This time I was able to manipulate epidural lead into the posterior epidural space instead of the gutter, I advanced the epidural lead in the posterior epidural space to midbody of T8 vertebra the epidural lead was demonstrated in proper posterior position in the epidural space. The lead was advanced strictly at the midline approximately to the top of T8 vertebra in the posterior epidural space. The position of the lead in the posterior epidural space was verified on the lateral view. After that location of the projection of the LEFT pedicle center of the L2 vertebra was found using C-arm. 10 cm 14 gauge introducer epidural Coude needle was inserted through the fascia and advanced to T12-L1 epidural interspace. 10 cm 14 gauge introducer epidural needle was inserted through the fascia and it was advanced to Left T12-L1 epidural space. The advancement of the needle was performed on anterior posterior and lateral views. Guitar wire and loss of resistance technique were used to locate epidural space. When guitar wire was spread in the epidural fashion, epidural lead was inserted through the needle. Loss of resistance to air technique and guitar wire were used to locate epidural space. After that the epidural lead was advanced slightly left to the midline and existing electrode lead and advanced to the to the top of the T9 vertebra in the posterior epidural space slightly left to the existing electrode. On the lateral view both leads were demonstrated in the posterior epidural space. After satisfactory position of the leads were established the needles were withdrawn, the stylette wires were removed from the epidural leads. The anchoring devices were dislodged on the leads and advanced to the level of the prevertebral fascia. After that the anchoring devices were sutured to the prevertebral fascia using Tycron 0-0 sutures - 2 sutures per each anchoroing device . The fixation screws were locked until 3 clicks heard. The wound was irrigated with vancomycin containing saline and packed with the 4x4 soaked with the same saline solution. After that attention was concentrated on the right upper buttock of the patient were the decision was made to implant the battery. 3 cm below the top of the left iliac crest horizontal incision was made 6.5 cm long using 10 blade scalpel, hemostasis was performed using electric cautery.. Using sharp and dull dissection pocket for the battery was formed in caudad direction from the incision. Thorough hemostasis was performed. After that the wound pocket was irrigated with vancomycin containing normal saline and tunneling device was used to connect midline incision and upper buttock incision Tunneling device was used to connect the two wounds. The epidural leads were dislodged from midline incision to the buttock incision through the tunneling device. After that they were connected to the Omnia battery and impedance was checked and found to be satisfactory with all leads connected. Anchoring screws were fixed on the back of the battery. Tycron of 0- 0 sutures were applied to the superior lateral and superior medial corners of the upper portion of the pocket wound and after that the anchoring sutures were connected to the anchoring orifices on the battery. Electrodes were gathered behind the body of the battery and battery was dislodged into the subcutaneous pocket wound. The sutures were tied and irrigation was repeated. After that 0-0 Polysorb sutures used to close the both wounds and the 0-2 polisorb sutures were used to apptoximate the level of the skin . [place] were applied to the skin. The sterile dressing comprised of several 4x4 for each wound was affixed to the skin using Tegaderm tape.
--- NOTE | 2023-07-20 07:27 | P.BOP_ITS ---
Brief Operative Note Date of Service: 07/20/23 Pre-op diagnosis: Ankilosing spondylitis, schronic pain syndrome Post-op diagnosis: same Procedure: implantation of the SCS Nev[place] Implants: Omnia IPG and 2 epidural leads Surgeon: Geronimo Kendall MD Anesthesia: MAC Was an Clinical Statistical Programmer used for this Procedure?: No Estimated blood loss (mL): 18 Pathology: none sent Condition: stable Disposition: PACU
[2023-07-20 10:08] VITALS: BP 122/66; PULSE 73; RESP 16; TEMP 36.5; O2SAT 100
[2023-07-20 10:10] VITALS: BP 118/69; PULSE 71; RESP 16; O2SAT 97
[2023-07-20 10:15] VITALS: BP 115/64; PULSE 68; RESP 16; O2SAT 96
[2023-07-20 10:20] VITALS: BP 117/62; PULSE 67; RESP 16; O2SAT 96
[2023-07-20 10:32] VITALS: BP 118/53; PULSE 60; RESP 16; TEMP 36.4; O2SAT 98
[2023-07-20] MEDS: HYDROcodone Bit/Acetam 5/325 TABLET 1 TAB PO (11:40)
--- NOTE | 2023-07-20 11:41 | PC.NURSE ---
patient stating that lower back pain see p.o. as per order. Also stating that having pain in his chest when taking a deep breath.
--- NOTE | 2023-07-20 12:33 | PC.NURSE ---
Pt came back to PACU to consisntent dry tight cough, 02 and resp rat wnl pt tolerating po Duoneb stared. Coughing less at this time 02 100
[2023-07-20] MEDS: Albuterol/Iprat 2.5/0.5MG 3 ML AMPUL.NEB INHALE (13:06)
--- NOTE | 2023-07-20 13:07 | PC.NURSE ---
patient returned to pace around 12:00 with coughing, lungs cta md. Burroughs aware and in conversation with nursing, see following ordered duoneb and provided, Manjeet speaking with pulm. continuing to monitor saturations never below 96% since
[2023-07-20] MEDS: Benzonatate 100 MG CAPSULE 200 MG PO (13:34)
--- NOTE | 2023-07-20 14:49 | PC.NURSE ---
patient transferred to .madiosn. report to Jm Feldman.
== END | disposition home or self-care (01) ==
PROVIDERS: PCP Physician Assistant Medical; Visit Provider Anesthesiology
PROC: (CPT 63685; principal; 2023-07-20 07:30)
DX: G89.4 Chronic pain syndrome (principal); M47.817 Spondylosis without myelopathy or radiculopathy, lumbosacral region; M51.36 Other intervertebral disc degeneration, lumbar region; M45.9 Ankylosing spondylitis of unspecified sites in spine; M53.3 Sacrococcygeal disorders, not elsewhere classified; J44.9 Chronic obstructive pulmonary disease, unspecified; Z88.5 Allergy status to narcotic agent
CPT/HCPCS: 63685; 63650 ×2; C1778; C1787; C1816; C1889; J0690; J1100; J2250; J2405; J2704; J2795; J3010; J3370

== ENCOUNTER → 2023-07-20 05:52 | Outpatient (BNV) | payer OTHER, SELFPAY ==
[2022-12-18 15:57] VITALS: BMI 28.8
== END ==
PROVIDERS: PCP Physician Assistant Medical; Visit Provider Anesthesiology
DX: G89.4 Chronic pain syndrome (principal); M45.9 Ankylosing spondylitis of unspecified sites in spine
CPT/HCPCS: 63650; 63685

== ENCOUNTER 2023-07-20 14:53 | Emergency (ER) | payer OTHER, SELFPAY ==
[2022-12-18 15:57] VITALS: BMI 28.8
--- NOTE | ~2023-07-20 | CT_ITS ---
EXAMINATION: CT ANGIOGRAM OF THE CHEST WITH AND WITHOUT CONTRAST (CT PULMONARY ANGIOGRAM FOR PE) CLINICAL INFORMATION: Shortness of breath and chest pain. COMPARISON: Chest radiograph 07/25/2021. TECHNIQUE: Prior to contrast administration, noncontrast localization images were obtained. Subsequently, multidetector volumetric imaging was performed from the thoracic inlet to below the diaphragms following the administration of 80 mL Omnipaque 350 intravenous contrast. No contrast reaction reported Sagittal, coronal, and MIP oblique sagittal reformatted images were obtained on the CT workstation, uploaded to PACS, and reviewed. This CT examination was performed using dose optimization techniques as appropriate, variously including the following: *Automated exposure control *Adjustment of mA and/or kV according to patient size (this includes techniques or standardized protocols for targeted exams where dose is matched to indication/reason for exam; i.e. extremities or head) *Use of iterative reconstruction technique Total exam dose-length product 273 mGy-cm FINDINGS: QUALITY OF STUDY/CONTRAST BOLUS: Satisfactory. PULMONARY ARTERIES: Evaluation is limited as the attenuation achieved in the pulmonary arteries is similar compared to the aorta and pulmonary veins. However, accounting for this limitation, no discrete central pulmonary emboli nor large segmental pulmonary emboli are seen. THORACIC AORTA: No aneurysm. LUNG: No focal consolidation or significant groundglass disease. Mild biapical subpleural thickening/scarring. Central airways are patent. Bilateral up to 3 mm mixed solid noncalcified and calcified pulmonary nodules are stable compared to 07/25/2021. PLEURA: No pleural effusion or pneumothorax. MEDIASTINUM: Normal heart size. No pericardial effusion. No hilar or mediastinal lymphadenopathy. No evidence of septal bowing or right heart strain. CORONARY ARTERY CALCIFICATION: Coronary artery calcifications are present. CHEST WALL/AXILLA: Symmetric gynecomastia. No axillary lymphadenopathy. OSSEOUS STRUCTURES: Rigid spine with fused anterior osteophytes. Thoracic spondylosis. No acute or aggressive appearing osseous findings. Neurostimulator lead terminating along the posterior spinal canal at the level of the mid thoracic spine. UPPER ABDOMEN: Tiny calcified granuloma in the spleen. No reflux of contrast into the hepatic veins to suggest elevated right heart pressures. CT/CT angio chest PE protocol IMPRESSION: 1. Evaluation of pulmonary nodule is somewhat limited due to timing of IV contrast. Although, accounting for this limitation, no discrete central pulmonary emboli nor large segmental pulmonary emboli are seen. No evidence of increased right-sided heart pressure. 2. No focal airspace opacities, pleural effusion or pneumothorax. 3. L2 3 mm pulmonary nodules are unchanged compared to 2022 which is reassuring. No additional imaging follow-up is recommended. VTE: negative.
--- NOTE | ~2023-07-20 | XR_ITS ---
EXAMINATION: XR CHEST CLINICAL INFORMATION: Cough COMPARISON: 08/05/2019 TECHNIQUE: Frontal view of the chest was obtained. FINDINGS: No significant abnormality is noted involving the heart, lungs, mediastinum, bony thorax or soft tissues. XR/XR chest 1V IMPRESSION: Unremarkable examination. No interval change
[2023-07-20 15:02] VITALS: BP 146/57; PULSE 86; RESP 17; TEMP 36.6; O2SAT 99; BMI 28.7
[2023-07-20 15:58] VITALS: BP 127/55; PULSE 71; RESP 16; TEMP 36.8; O2SAT 99
--- NOTE | 2023-07-20 16:18 | ED_ITS ---
<Statement entered by Morris Friedman MD - 07/20/23 21:13> I was the attending physician at time of patient encounter. Patient was seen primarily by the PA. I did not see or examine the patient. Per chart review, management appears appropriate and given ongoing dyspnea and tachycardia it is reasonable to admit patient for further workup and management. Per discussion with PA, admitting hospitalist is aware to follow up CTA results. HPI - General Adult General Chief complaint: Upper Respiratory Symptoms Stated complaint: throat spasms and cough post op Time Seen by Provider: 07/20/23 16:18 Source: patient, RN notes reviewed and old records reviewed Limitations: no limitations History of Present Illness HPI narrative: 62-year-old male who has a history of interstitial lung disease, ankylosing spondylitis, chronic pain, presents for evaluation of shortness of breath and cough. Patient underwent a spinal cord stimulator procedure earlier today. Patient tolerated the procedure however postop, he developed persistent coughing and spasm being according to the patient. He has had this happen in the past. He does report shortness of breath especially with exertion. He reports that his lung disease has been fairly well managed and he is on immunosuppressant medications for this. Patient has been treated for this in the past with steroids and respiratory treatments. He denies any chest pain. No nausea or vomiting. Patient reports pain to his lower back where his stimulator was placed. He denies any urinary symptoms. Denies any trauma. Patient has otherwise been feeling well. Related Data Home Medications ?Medication ?Instructions ?Recorded ?Confirmed aspirin 81 mg tablet,delayed 81 mg PO DAILY 03/10/20 07/20/23 release cetirizine 10 mg tablet 10 mg PO DAILY PRN Runny Nose 03/10/20 07/20/23 fluticasone propionate 50 2 spray intranasal DAILY 03/10/20 07/20/23 mcg/actuation nasal spray,suspension (Flonase Allergy Relief) omeprazole 20 mg capsule,delayed 20 mg PO DAILY@0630 03/10/20 07/20/23 release atorvastatin 10 mg tablet 10 mg PO DAILY 07/13/21 07/20/23 diltiazem HCl 120 mg 120 mg PO DAILY 10/14/21 07/20/23 capsule,extended release 24 hr, controlled cyclobenzaprine 10 mg tablet 10 mg PO BEDTIME 04/18/22 07/20/23 ondansetron HCl 8 mg tablet 8 mg PO TID PRN Nausea And Vomiting 04/18/22 07/20/23 albuterol sulfate 2.5 mg/3 mL 2.5 mg inhalation QID PRN sob 07/20/23 07/20/23 (0.083 %) solution for nebulization golimumab 12.5 mg/mL intravenous 100 mg IV Q8W 07/20/23 07/20/23 solution (Simponi ARIA) pregabalin 100 mg capsule 100 mg PO BID 07/20/23 07/20/23 sulfamethoxazole 400 1 tab PO DAILY 07/20/23 07/20/23 mg-trimethoprim 80 mg tablet Previous Rx's ?Medication ?Instructions ?Recorded cane #1 ea 08/03/20 azathioprine 100 mg tablet 200 mg (2 x 100 mg) PO DAILY #60 06/29/23 tabs calcium carbonate 600 mg-vitamin 1 tab PO DAILY #30 tabs 07/10/23 D3 20 mcg (800 unit) tablet hydromorphone 2 mg tablet 2 mg PO Q6H PRN Postoperative pain 07/20/23 pain 4 days #16 tabs Allergies Allergy/AdvReac Type Severity Reaction Status Date / Time gluten Allergy Severe Diarrhea Verified 07/20/23 15:08 acetaminophen [From PERCOCET] Allergy Unknown VOMITING Verified 05/10/23 09:32 codeine [CODEINE] Allergy Unknown VOMITING Verified 05/10/23 09:32 oxycodone [From PERCOCET] Allergy Unknown VOMITING Verified 05/10/23 09:32 fluconazole Allergy Unknown Verified 05/10/23 09:32 baclofen AdvReac Intermediate Nightmare Verified 05/10/23 09:32 Review of Systems 2 Constitutional: Constitutional: Denies chills, Denies fever(s) and Denies headache(s) ENT: Denies headache(s), Denies nasal congestion, Denies nasal discharge and Denies sore throat Cardiovascular: Cardiovascular: Denies chest pain, Denies palpitations, Reports dyspnea on exertion and Denies orthopnea Respiratory: Respiratory: Reports cough and Reports dyspnea on exertion Gastrointestinal: Gastrointestinal: Denies abdominal pain, Denies melena, Denies hematochezia, Denies diarrhea, Denies nausea and Denies vomiting Musculoskeletal: Musculoskeletal: Reports back pain Integumentary/Breasts: Skin/Breast: Denies rash Neurologic: Denies headache(s) and Denies focal weakness Psychiatric: Psychiatric: Denies depression Endocrine: Endocrine: Denies palpitations [facility] Past Medical History Medical History Blister (nonthermal) of other finger, initial encounter Upper airway cough syndrome COVID-19 vaccine series completed ILD (interstitial lung disease) Ankylosing spondylitis Thoracic outlet syndrome COPD (chronic obstructive pulmonary disease) Acute hyponatremia Ankylosing spondylitis Chronic cough Organizing pneumonia Dyspnea on exertion Pneumonia Bronchitis GERD (gastroesophageal reflux disease) Hyperlipidemia Pulmonary nodules Social History Social History Household Members: None Housing: House Do you presently have visiting nurse or other home services: No Alcohol intake: never Patient Tobacco Use Status: Never used Tobacco Smoked in Last 30 Days: No Second Hand Smoke Exposure: Yes (35 yr exposure at home) Use of substances other than those prescribed or required for medical reasons: No Advance Directives: Yes Advance Directives on File: Yes Advance Directives Date on File: 07/29/20 Do you have a plan to hurt others: No Plan service: No Current occupational status: employed Physical Exam ED Vital Signs: Vital Signs - 24 hr 07/20/23 15:02 07/20/23 15:58 07/20/23 17:16 Temperature 98 F 98.2 F Pulse Rate 86 71 74 Respiratory Rate 17 16 18 Blood Pressure 146/57 H 127/55 L Pulse Oximetry 99 99 Oxygen Delivery Method Room Air Room Air 07/20/23 17:59 07/20/23 20:00 07/20/23 23:33 Temperature 98.6 F 98.8 F 97.8 F Pulse Rate 78 93 74 Respiratory Rate 16 12 18 Blood Pressure 126/50 L 120/55 L 115/59 L Pulse Oximetry 100 99 100 Oxygen Delivery Method Room Air Room Air Room Air 07/21/23 00:28 Temperature Pulse Rate Respiratory Rate Blood Pressure Pulse Oximetry 100 Oxygen Delivery Method Room Air BMI result Body Mass Index 28.7 Const Other: Patient is resting sitting on the edge of the bed. No acute distress. Respirations are regular and unlabored. Patient speaks full clear sentences. Oxygen saturation is 100% on room air General: cooperative HENMT Other: Oropharynx is moist. There is no tongue elevation or edema. No stridor. Tolerate secretions. Resp Other: Lung sounds are diminished due to effort but clear throughout. There is no wheezes rales or rhonchi Cardio Rate: regular rate Rhythm: regular rhythm Extrem Other: No pedal edema Course Course Course Narrative: 4:35 p.m. I spoke with Dr. Chapman. Although he has not currently on-call, he was able to provide some background for this patient. If the patient is hemodynamically stable and is responding well to treatment, and symptoms have improved, it is appropriate for him to be discharged home. He agrees with current plan of treatment which includes nebulizer medications and IV steroids. I have also discussed this with the patient who is in agreement with this plan. 6:50 p.m. patient had been resting comfortably. He reported while he was sitting in bed had a sensation of tightness in his chest followed by rapid heart rate. Patient states he was breathing heavily at this time. Blood pressure is 160 systolic, heart rate increased to 110s. Lung zones clear at this time. Oxygen saturations 100% on room air. EKG at this time was sinus tach at 110 beats per minute without any acute ischemic changes. Check troponin. We will reassess. Discussed with Dr. Friedman who agrees with plan. 8:30 p.m. 1st troponin is negative. The patient reports feeling better however when he begins to ambulate, he becomes tachycardic sinus, and short of breath. Given these findings, patient will be brought into the hospital for further evaluation and management. Discussed with Dr. Bush for transfer of care. Agrees with CTA to further evaluate for PE. July 21, 2023, 12:50 a.m. patient has been resting comfortably while in the emergency department. Hospital admission has been pending at this time. The patient was seen and evaluated by Dr. Bush, hospitalist. The patient reports he is feeling better and would like to be discharged home. He was able to ambulate in the emergency department without any tachycardia. Oxygen saturation was 99% on room air. Patient feels comfortable with discharge plan home. No further questions at this time. Additional pain medicine provided at time of discharge. Patient has a ride home by his son. Medications Administered Discontinued Medications Generic Name Dose Route Start Last Admin Trade Name Freq PRN Reason Stop Dose Admin Albuterol/Ipratropium 3 ml 07/20/23 17:11 07/20/23 17:16 Albuterol/Iprat 2.5/0.5mg 3 Ml Ampul.Neb INHALE 07/20/23 17:12 3 ml ONCE ONE Administration Sodium Chloride 1,000 mls @ 999 mls/hr 07/20/23 16:45 07/20/23 19:09 Ns IV 07/20/23 17:45 Infused .Q1H1M KAVEH Infusion Iohexol 100 ml 07/20/23 20:56 07/20/23 20:56 Iohexol 350 Mg/Ml 100 Ml Infus..Btl IV 07/20/23 20:57 75 ml ONCE ONE Administration Methylprednisolone Sodium Succinate 125 mg 07/20/23 16:49 07/20/23 17:35 Methylprednisolone Sod Succ 125 Mg/2 Ml Vial IVPUSH 07/20/23 16:50 125 mg ONCE ONE Administration Morphine Sulfate 3 mg 07/20/23 16:53 07/20/23 17:34 Morphine Sulfate 4 Mg/Ml Cartridge IVPUSH 07/20/23 16:54 3 mg ONCE ONE Administration Protocol Morphine Sulfate 5 mg 07/20/23 19:30 07/20/23 19:50 Morphine Sulfate 10 Mg/Ml Cartridge IVPUSH 07/20/23 19:31 5 mg ONCE ONE Administration Protocol Morphine Sulfate 5 mg 07/21/23 01:08 07/21/23 01:17 Morphine Sulfate 10 Mg/Ml Cartridge IVPUSH 07/21/23 01:09 5 mg ONCE ONE Administration Protocol Ondansetron HCl 4 mg 07/20/23 16:53 07/20/23 17:35 Ondansetron Hcl 4 Mg/2 Ml Vial IVPUSH 07/20/23 16:54 4 mg ONCE ONE Administration Medical Decision Making Medical Decision Making MDM Narrative: 62-year-old male with a history of interstitial lung disease, ankylosing spondylitis, chronic pain, currently on immunosuppressant therapy, postop day 0 status post spinal cord stimulator with shortness of breath and cough. Suspect bronchospasm or reactive airway disease. Check labs, chest x-ray. IV steroids, trial of nebulized lidocaine or DuoNeb treatment. Review of operative note today indicates the patient was placed under anesthesia via endotracheal intubation. Differential Diagnosis Differential Diagnoses: The differential diagnosis associated with the presentation includes Pneumothorax Respiratory failure Aspiration pneumonia Chronic lung disease Reactive airway disease Admission/Observation Consideration of admission/observation: Escalation of care including admission/observation considered Consideration for medical admission if clinically warranted Consult Healthcare Provider Management of the patient was discussed with: Automotive Service Technician Nursing notes indicated that the patient's surveillance sensor operator, Dr. Chapman was already made aware. Lab Data MDM Lab Attestation statement: I reviewed the patient's lab results. Labs at baseline 07/20/23 16:11 07/20/23 16:11 Labs: Lab Results 07/20/23 07/20/23 Range/Units 16:11 19:22 WBC 5.3 (4.8-10.8) X10*3/uL RBC 3.69 L (4.60-5.80) X10*6/uL Hgb 13.4 L (14.0-18.0) g/dl Hct 38.7 L (42.0-52.0) % MCV 104.9 H (80.0-98.0) fL MCH 36.3 H (27.0-33.0) pg MCHC 34.6 (31.0-36.0) g/dl RDW 13.3 (11.0-16.0) % Plt Count 176 (160-400) X10*3/uL MPV 8.7 L (9.4-12.4) fL Immature Gran % (Auto) 0.6 H (0.0-0.4) % Neut % (Auto) 95.6 H (45-73) % Lymph % (Auto) 2.1 L (20-40) % Lyon % (Auto) 1.5 L (2-11) % Eos % (Auto) 0.0 (0-4) % Baso % (Auto) 0.2 (0-2) % Lymph # (Auto) 0.1 L (1.2-4.9) X10*3/uL Lyon # (Auto) 0.1 (0.1-1.2) X10*3/uL Eos # (Auto) 0.0 (0.0-0.4) X10*3/uL Baso # (Auto) 0.0 (0.0-0.2) X10*3/uL Abs Immat Gran (auto) 0.03 (0.00-0.03) X10*3/uL Absolute Neuts (auto) 5.1 (2.0-8.3) x10*3/uL Absolute Nucleated RBC 0.000 (0.0-0.012) X10*3/uL Nucleated RBC % (auto) 0.0 (0.0-0.2) /100WBC Smear Tech's Comments VERIFIED Sodium 139 (135-145) mmol/L Potassium 4.2 (3.3-5.1) mmol/L Chloride 106 (96-108) mmol/L Carbon Dioxide 23 (22-29) mmol/L Anion Gap 14 (12-20) BUN 13 (9-16) mg/dL Creatinine 0.82 (0.5-1.4) mg/dL Estim Creat Clear Calc 118.7 Estimated GFR > 60 Random Glucose 149 H (60-115) mg/dL Calcium 9.5 (8.4-10.2) mg/dL Magnesium 1.9 (1.6-2.6) mg/dL Total Bilirubin 0.6 (0.0-1.0) mg/dL AST 22 (5-37) U/L ALT 17 (0-40) U/L Alkaline Phosphatase 65 (39-117) U/L Troponin I High Sens 4.2 (<3.5-35.0) ng/L Total Protein 7.1 (6.5-8.0) g/dL Albumin 4.3 (3.5-5.0) g/dL Radiology Impression Discussion of test interpretation with radiology: I have reviewed the radiologist's reading. Radiologist Impression: [place] [id number] CT Scan Report Signed Patient: Moe Hammer MR#: [id number] : 1960 Acct:[id number] Age/Sex: 62 / M ADM Date: 07/20/23 Loc: HO.ED Attending Dr: Ordering Physician: William Peck Date of Service: 07/20/23 Procedure(s): CT angio chest PE protocol Accession Number(s): [id number] cc: Physician,Unknown ; William Peck~ EXAMINATION: CT ANGIOGRAM OF THE CHEST WITH AND WITHOUT CONTRAST (CT PULMONARY ANGIOGRAM FOR PE) CLINICAL INFORMATION: Shortness of breath and chest pain. COMPARISON: Chest radiograph 07/25/2021. TECHNIQUE: Prior to contrast administration, noncontrast localization images were obtained. Subsequently, multidetector volumetric imaging was performed from the thoracic inlet to below the diaphragms following the administration of 80 mL Omnipaque 350 intravenous contrast. No contrast reaction reported Sagittal, coronal, and MIP oblique sagittal reformatted images were obtained on the CT workstation, uploaded to PACS, and reviewed. This CT examination was performed using dose optimization techniques as appropriate, variously including the following: *Automated exposure control *Adjustment of mA and/or kV according to patient size (this includes techniques or standardized protocols for targeted exams where dose is matched to indication/reason for exam; i.e. extremities or head) *Use of iterative reconstruction technique Total exam dose-length product 273 mGy-cm FINDINGS: QUALITY OF STUDY/CONTRAST BOLUS: Satisfactory. PULMONARY ARTERIES: Evaluation is limited as the attenuation achieved in the pulmonary arteries is similar compared to the aorta and pulmonary veins. However, accounting for this limitation, no discrete central pulmonary emboli nor large segmental pulmonary emboli are seen. THORACIC AORTA: No aneurysm. LUNG: No focal consolidation or significant groundglass disease. Mild biapical subpleural thickening/scarring. Central airways are patent. Bilateral up to 3 mm mixed solid noncalcified and calcified pulmonary nodules are stable compared to 07/25/2021. PLEURA: No pleural effusion or pneumothorax. MEDIASTINUM: Normal heart size. No pericardial effusion. No hilar or mediastinal lymphadenopathy. No evidence of septal bowing or right heart strain. CORONARY ARTERY CALCIFICATION: Coronary artery calcifications are present. CHEST WALL/AXILLA: Symmetric gynecomastia. No axillary lymphadenopathy. OSSEOUS STRUCTURES: Rigid spine with fused anterior osteophytes. Thoracic spondylosis. No acute or aggressive appearing osseous findings. Neurostimulator lead terminating along the posterior spinal canal at the level of the mid thoracic spine. UPPER ABDOMEN: Tiny calcified granuloma in the spleen. No reflux of contrast into the hepatic veins to suggest elevated right heart pressures. CT/CT angio chest PE protocol IMPRESSION: 1. Evaluation of pulmonary nodule is somewhat limited due to timing of IV contrast. Although, accounting for this limitation, no discrete central pulmonary emboli nor large segmental pulmonary emboli are seen. No evidence of increased right-sided heart pressure. 2. No focal airspace opacities, pleural effusion or pneumothorax. 3. L2 3 mm pulmonary nodules are unchanged compared to 2021 which is reassuring. No additional imaging follow-up is recommended. VTE: negative. 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 FINDINGS: No significant abnormality is noted involving the heart, lungs, mediastinum, bony thorax or soft tissues. XR/XR chest 1V IMPRESSION: Unremarkable examination. No interval change Dictated By: Jonas Rowe MD Signed By: <Electronically signed by Jonas Rowe MD in OV> 07/20/23 1622 DD/ 1600 TD/TT: [employer] Middleware Developer: Tests considered The following testing was considered but not selected: Consideration for additional testing such as ABG if clinically warranted. Prescription Management I considered prescription management with: Pain Medication Discharge Plan Discharge Clinical Impression: Acute dyspnea, Tachycardia Patient Disposition: Home, Self-Care Instructions: Dyspnea (ED) Additional Instructions: Continue current medications as directed. Continue postoperative instructions as directed by your surgeon. Follow-up with your primary care provider. Call this week to schedule a follow- up appointment. Return to the emergency department if you have any worsening of symptoms, or any concerns. Get well soon! Prescriptions: No Action azathioprine 100 mg tablet 200 mg PO DAILY Qty: 60 6RF calcium carbonate-vitamin D3 600 mg-20 mcg (800 unit) tablet 1 tab PO DAILY Qty: 30 6RF hydromorphone 2 mg tablet 2 mg PO Q6H MDD 4 tablets PRN (Reason: Postoperative pain pain) 4 Days Qty: 16 0RF Rx Instructions: Partial Fill upon patient request. Take this medication only when pain is very severe, take Tylenol 500 mg for mild or moderate pain. Take Zofran 4 mg p.o. 30 minutes before opioid. (DME) cane Device See Rx Instructions .ROUTE .MEDSUPPLY Qty: 1 0RF Rx Instructions: As directed pregabalin 100 mg capsule 100 mg PO BID Simponi ARIA 12.5 mg/mL Solution 100 mg IV Q8W Rx Instructions: administer over 30 mins sulfamethoxazole-trimethoprim 400-80 mg tablet 1 tab PO DAILY albuterol sulfate 2.5 mg /3 mL (0.083 %) solution for nebulization 2.5 mg INHALATION QID PRN (Reason: sob) cetirizine 10 mg tablet 10 mg PO DAILY PRN (Reason: Runny Nose) omeprazole 20 mg capsule,delayed release(DR/EC) 20 mg PO DAILY@0630 Patient Comments: ON HOLD DUE TO ITRACONAZOLE fluticasone propionate [Flonase Allergy Relief] 50 mcg/actuation spray,suspension 2 spray intranasal DAILY Rx Instructions: administer into each nostril aspirin 81 mg tablet,delayed release (DR/EC) 81 mg PO DAILY cyclobenzaprine 10 mg tablet 10 mg PO BEDTIME ondansetron HCl 8 mg tablet 8 mg PO TID PRN (Reason: Nausea And Vomiting) atorvastatin 10 mg tablet 10 mg PO DAILY diltiazem HCl 120 mg capsule,ext.rel 24h degradable 120 mg PO DAILY Print Language: [place] Citizen
[2023-07-20 16:20] LABS: Basophils Percent Auto 0.2 % (0-2); Hematocrit 38.7 % (42.0-52.0); Hemoglobin 13.4 g/dl (14.0-18.0); Imm Gran Abs Auto 0.03 X10*3/uL (0.00-0.03); Imm Gran Pct Auto 0.6 % (0.0-0.4); Lymphocytes Absolute Auto 0.1 X10*3/uL (1.2-4.9); Lymphocytes Percent Auto 2.1 % (20-40); MANUAL DIFF FLAG SCAN; Mean Corpuscular HGB Conc 34.6 g/dl (31.0-36.0); Mean Corpuscular Hemoglobin 36.3 pg (27.0-33.0); Mean Corpuscular Volume 104.9 fL (80.0-98.0); Mean Platelet Volume 8.7 fL (9.4-12.4); Monocytes Absolute Auto 0.1 X10*3/uL (0.1-1.2); Monocytes Percent Auto 1.5 % (2-11); Neutrophils Absolute Auto 5.1 x10*3/uL (2.0-8.3); Neutrophils Percent Auto 95.6 % (45-73); Platelet Count 176 X10*3/uL (160-400); Red Blood Count 3.69 X10*6/uL (4.60-5.80); Red Cell Distribution Width 13.3 % (11.0-16.0); SCAN SMEAR FLAG 1; White Blood Count 5.3 X10*3/uL (4.8-10.8)
[2023-07-20 16:39] LABS: Alanine Aminotransferase 17 U/L (0-40); Albumin Level 4.3 g/dL (3.5-5.0); Alkaline Phosphatase 65 U/L (39-117); Anion Gap 14 (12-20); Aspartate Amino Transferase 22 U/L (5-37); Bilirubin Total 0.6 mg/dL (0.0-1.0); Blood Urea Nitrogen 13 mg/dL (9-16); Calcium 9.5 mg/dL (8.4-10.2); Carbon Dioxide 23 mmol/L (22-29); Chloride 106 mmol/L (96-108); Creatinine Clr Calc Pharmacy 118.7; Estimated Glomerular Filt Rate > 60; Glucose Random 149 mg/dL (60-115); Magnesium 1.9 mg/dL (1.6-2.6); Potassium 4.2 mmol/L (3.3-5.1); Sodium 139 mmol/L (135-145); Total Protein 7.1 g/dL (6.5-8.0)
[2023-07-20 17:00] LABS: SLIDE REVIEW VERIFIED
[2023-07-20 17:16] VITALS: PULSE 74; RESP 18; O2SAT 100
[2023-07-20] MEDS: Albuterol/Iprat 2.5/0.5MG 3 ML AMPUL.NEB INHALE (17:16)
[2023-07-20] MEDS: 0.9 % Sodium Chloride 1,000 ML 999 ML IV (17:32)
[2023-07-20] MEDS: Morphine Sulfate 4 MG/ML CARTRIDGE 3 MG IVPUSH (17:34)
[2023-07-20] MEDS: ondansetron HCL 4 MG/2 ML VIAL IVPUSH (17:35)
[2023-07-20] MEDS: methylPREDNISolone Sod Succ 125 MG/2 ML VIAL IVPUSH (17:35)
[2023-07-20 17:59] VITALS: BP 126/50; PULSE 78; RESP 16; TEMP 37; O2SAT 100
--- NOTE | 2023-07-20 18:42 | ECG_ITS ---
Test Reason : RACING HEART Blood Pressure : / mmHG Vent. Rate : 110 BPM Atrial Rate : 110 BPM P-R Int : 156 ms QRS Dur : 088 ms QT Int : 358 ms P-R-T Axes : 042 056 041 degrees QTc Int : 484 ms Sinus tachycardia Nonspecific ST abnormality Abnormal ECG When compared with ECG of 22-SEP-2020 10:02, Vent. rate has increased BY 41 BPM QT has lengthened Referred By: William Peck Electronically Signed By:JAK CHRISTENSEN MD
--- NOTE | 2023-07-20 19:14 | PC.NURSE ---
Late note. At approximately 1845 patient called this nurse into his room stating that he felt like his heart was racing and that he was unable to catch his breath. At the time patient was standing next to his bed looking distressed with labored breathing. Provider made aware and an EKG was ordered, patient assisted back onto the stretcher, was placed on greenhouse specialist and an EKG was obtained. Currently patient is resting on stretcher, visibly more comfortable now, heart rate in the 80's-90's and breathing is no longer labored. Patient stating that he is feeling better but is concerned about what caused the episode. Troponin currently being drawn on patient.
[2023-07-20] MEDS: Morphine Sulfate 10 MG/ML CARTRIDGE 5 MG IVPUSH (19:50)
[2023-07-20 19:51] LABS: Troponin-I High Sensitivity 4.2 ng/L (<3.5-35.0)
[2023-07-20 20:00] VITALS: BP 120/55; PULSE 93; RESP 12; TEMP 37.1; O2SAT 99
[2023-07-20] MEDS: iohexoL 350 MG/ML 100 ML INFUS..BTL IV (20:56)
--- NOTE | 2023-07-20 22:15 | PHA.MEDREC ---
Pharmacy Consult ? Medication Reconciliation Pharmacy has completed the medication reconciliation. Confirmed medications with patient. Patient stated they are on Simponi ARIA infusions every 8 weeks. Patient said he should of gotten another dose yesterday but due to his surgery his DR told him to stop beforehand and he states his surgeon wants him to start the infusion again in 3 weeks.
[2023-07-20 23:33] VITALS: BP 115/59; PULSE 74; RESP 18; TEMP 36.6; O2SAT 100
[2023-07-21 00:28] VITALS: O2SAT 100
[2023-07-21] MEDS: Morphine Sulfate 10 MG/ML CARTRIDGE 5 MG IVPUSH (01:17)
[2023-07-21 02:09] VITALS: BP 124/61; PULSE 84; RESP 19; TEMP 36.6; O2SAT 100
== END 2023-07-23 04:17 | disposition home or self-care (01) ==
PROVIDERS: Physician Assistant; Emergency Provider Internal Medicine
DX: R06.02 Shortness of breath (principal); R00.0 Tachycardia, unspecified; J39.2 Other diseases of pharynx; R05.9 Cough, unspecified; R07.89 Other chest pain; R11.2 Nausea with vomiting, unspecified; Z79.899 Other long term (current) drug therapy
CPT/HCPCS: 36415; 71045; 71275; 80053; 83735; 84484; 85025; 93005; 94640; 96361; 96374; 96375; 96376; 99285; J2270; J2405; J2919; Q9967

== ENCOUNTER → 2023-07-20 18:42 | Outpatient (BNV) | payer OTHER, SELFPAY ==
[2022-12-18 15:57] VITALS: BMI 28.8
== END ==
PROVIDERS: Emergency Provider Internal Medicine; Visit Provider Internal Medicine Cardiovascular Disease
DX: R00.2 Palpitations (principal)
CPT/HCPCS: 93010

== ENCOUNTER 2023-07-27 09:20 | Outpatient (AMB) | payer OTHER, SELFPAY ==
[2022-12-18 15:57] VITALS: BMI 28.8
--- NOTE | 2023-07-27 09:22 | MHC.OFFVIS ---
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 Kendall. Patient reports he was admitted to ER after surgery for shortness of breath and was discharged home at 0400 am on 07/21/23. Patient reports his breathing has partially improved. He is wearing face mask today. Patient reports 50% ongoing pain relief for his back pain and mild pain relief for his leg pain. Patient reports partial improvements in his mobility, better functioning, and better sleep. He has been taking Tylenol since procedure but report pain levels above 6-7/10 are not controlled with Tylenol. He was prescribed hydromorphine by Dr. Kendall for post op pain but was not been able to fill prescription due to national shortage. Mike from [facility] is present during today's visit. The dressings were removed and incisions were cleansed with ChloraPrep. [place] are intact. Significant healing bruising was noted in the lower spine bilaterally. Patient reports he underwent CT scan in ER postoperatively for dyspnea and was lying on hard surfaces. Denies any trauma, injury or falls. Patient reports he stopped aspirin prior to SCS implant procedure and has not restarted it. The midline incision and right upper buttock battery wound site are clean, no pathological discharge or swelling. There is no erythema or local temperature. Bacitracin ointment, dry sterile and Tegaderm dressing were applied. Patient is wearing abdominal binder. Past Procedures: 07/20/23: Nevro SCS Implant-50% pain relief 05/04/23: Nevro SCS Trial-85-90% pain relief PRIOR: Patient is a pleasant 62 years old male with history of ankylosing spondylitis of multiple sites in spine, thoracic spondylosis with myelopathy, parletoalveolar pneumopathy, bilateral sacroiliac joint pain, osteoarthritis, lumbar spondylosis, degeneration of lumbar intervertebral disc, lumbar radiculopathy presents today for initial evaluation of chronic low back pain and bilateral leg pain and worsening lower extremity weakness. Denies any recent trauma, injury or falls. He has been followed at [facility] and has received multiple injections including epidural, SI joint and lumbar facets with limited response. Denies previous spine surgery. Patient is also followed by his PCP, physician compensation analyst and rheumatology for continued increase in liver enzymes. He was referred to our office for potential neuromodulation with PNS device. Back pain is localized to lower back and sacral areas with radiation to both legs, in L5-S1 distribution worse on the left. Patient reports leg burning and numbness is constant and worse at night. He also reports chronic left arm and left face numbness due to thoracic outlet syndrome. Denies any fever, abdominal pain, bladder or bowel dysfunction or saddle anesthesia. Location Mid and lower back radiating down bilateral legs, left worse than right Duration Chronic pain for many years Characteristics of symptom or complaint Aching, hot, burning, stabbing, sharp, numbness, stiffness Aggravating or associated factors Sitting (shooting in back) or walking, prolonged standing (leg pain) Relieving factors Walking and standing makes back pain better, Lyrica, cyclobenzaprine Treatment PT early this year, minimal improvement with balance. Injections at [facility] Medical History Blister (nonthermal) of other finger, initial encounter Upper airway cough syndrome COVID-19 vaccine series completed ILD (interstitial lung disease) Ankylosing spondylitis Thoracic outlet syndrome COPD (chronic obstructive pulmonary disease) Acute hyponatremia Ankylosing spondylitis Chronic cough Organizing pneumonia Dyspnea on exertion Pneumonia Bronchitis GERD (gastroesophageal reflux disease) Hyperlipidemia Pulmonary nodules Social History Household Members: None Housing: House Do you presently have visiting nurse or other home services: No Alcohol intake: never Patient Tobacco Use Status: Never used Tobacco Second Hand Smoke Exposure: Yes (35 yr exposure at home) Advance Directives Date on File: 07/29/20 service: No Current occupational status: employed Review of Systems Const All systems reviewed & are unremarkable except as noted in HPI and below Reports as per HPI, Denies anorexia, Denies chills, Denies fatigue, Denies fever(s), Denies frequent falls, Denies malaise and Denies night sweats Card Reports dyspnea on exertion (chronic) Resp Denies cough, Denies hemoptysis, Denies pain with cough and Reports dyspnea on exertion (chronic) Neuro Denies frequent falls Endo Denies fatigue Physical Exam Vital Signs: Last Vital Signs Pulse 71 07/27/23 09:26 BP 151/71 H 07/27/23 09:26 Pulse Ox 98 07/27/23 09:26 Oxygen Delivery Method Room Air 07/27/23 09:26 BMI result Body Mass Index 28.0 General: Appears afebrile. No acute distress. Alert and oriented. Mood and affect appropriate. Follows and participates in conversation appropriately. Respiratory effort is unlabored. No cough. Wearing face mask. Able to transition from sit to stand unassisted. Ambulates with bilaterally normal heel strike and toe off. All incisions are clean dry and intact. Healing bruising noted in the lower spine, no tenderness or erythema. Dressings were changed in the office today. Assessment & Plan Assessment & Plan (1) Lumbosacral spondylosis: Code(s): M47.817 - Spondylosis without myelopathy or radiculopathy, lumbosacral region Category: Medical (2) Lumbar degenerative disc disease: Code(s): M51.36 - Other intervertebral disc degeneration, lumbar region Category: Medical (3) Chronic pain syndrome: Code(s): G89.4 - Chronic pain syndrome Category: Medical (4) Status post insertion of spinal cord stimulator: Code(s): Z96.89 - Presence of other specified functional implants Category: Surgical Plan The dressings were changed today in the office. The patient will follow up in one week for garrison removal and wound check. The patient was educated by Mike Kramer on SCS device operation. Patient is wearing his abdominal binder. Hydromorphine script discontinued due to national shortage per patient's pharmacy. New script for morphine sent today along with Narcan. Side effects and precautions were reviewed with patient. All questions and concerns have been answered and patient agreed with the plan. Follow up in 1 week for garrison removal and sooner as needed. Medications: New morphine Partial Fill upon patient request. Take this medication only when pain is very severe, take Tylenol 500 mg for mild or moderate pain. Take Zofran 4 mg p.o. 30 minutes before opioid. 15 mg PO BID 5 days PRN 10 tabs 0RF pain G89.4 - Chronic pain syndrome, M47.817 - Spondylosis without myelopathy or radiculopathy, lumbosacral region, M51.36 - Other intervertebral disc degeneration, lumbar region, Z96.89 - Presence of other specified functional implants naloxone 4 mg/actuation (Narcan) spray 1 dose into ONE nostril; alternate nostrils w each dose until help arrives 4 mg intranasal Q2M PRN 2 ea 0RF opioid overdose Discontinued hydromorphone Partial Fill upon patient request. Take this medication only when pain is very severe, take Tylenol 500 mg for mild or moderate pain. Take Zofran 4 mg p.o. 30 minutes before opioid. Discontinued Reason: Doctor's Order 2 mg PO Q6H 4 days PRN 16 tabs 0RF Postoperative pain pain MDD 4 tablets Coding Level of Care Code Est Pt Level 4 (84969) Diagnoses Lumbosacral spondylosis M47.817 Lumbar degenerative disc disease M51.36 Chronic pain syndrome G89.4 Status post insertion of spinal cord stimulator Z96.89
[2023-07-27 09:26] VITALS: BP 151/71; PULSE 71; O2SAT 98; BMI 28.0
== END 2023-07-27 10:08 | disposition home or self-care (01) ==
PROVIDERS: PCP Physician Assistant Medical; Visit Provider Nurse Practitioner Family
DX: M47.817 Spondylosis without myelopathy or radiculopathy, lumbosacral region (principal); M51.36 Other intervertebral disc degeneration, lumbar region; G89.4 Chronic pain syndrome; Z96.89 Presence of other specified functional implants
CPT/HCPCS: 99024

== ENCOUNTER → 2023-07-27 09:20 | Outpatient (BNVA) | payer OTHER, SELFPAY ==
[2022-12-18 15:57] VITALS: BMI 28.8
== END ==
PROVIDERS: PCP Physician Assistant Medical; Visit Provider Nurse Practitioner Family

== ENCOUNTER 2023-08-03 09:14 | Outpatient (AMB) | payer OTHER, SELFPAY ==
[2022-12-18 15:57] VITALS: BMI 28.8
--- NOTE | 2023-08-03 09:17 | A.OFFVIS_ITS ---
Vital Signs 08/03/23 09:22 Height 6 ft 2 in Weight 220 lb BMI 28.2 BP 149/67 H Blood Pressure Location Rt brachial Position Sitting Pulse 75 Pulse Source Pulse Oximeter Pulse Oximetry (%) 99 Oxygen Delivery Method Room Air Intake Visit Reasons: S/p Nevro SCS Implant 07/20/23 (2nd Visit) Intake Note: Pain today 06/21 Obstetrics Tech Required: No Accompanied by: Self / Same As Patient Allergies gluten Allergy (Severe, Verified 08/03/23 09:23) Diarrhea acetaminophen [From PERCOCET] Allergy (Unknown, Verified 08/03/23 09:23) VOMITING codeine [CODEINE] Allergy (Unknown, Verified 08/03/23 09:23) VOMITING oxycodone [From PERCOCET] Allergy (Unknown, Verified 08/03/23 09:23) VOMITING fluconazole Allergy (Verified 08/03/23 09:23) Unknown baclofen Adverse Reaction (Intermediate, Verified 08/03/23 09:23) Nightmare HPI Comments Details: Patient presents today 2 weeks status post Nevro SCS implant on 07/20/[address] Kendall for gulshan removal. Patient reports 50% overall pain relief, 70% pain relief for his back pain and 25% pain relief for his leg pain. Patient reports partial improvements in his mobility, better functioning, and better sleep. He has been taking Tylenol since procedure and did not needed to take short script of morphine for post-op pain. Mike from [facility] is present during today's visit. The dressings were removed and incisions were cleansed with ChloraPrep. [place] were removed. Healing and decreased bruising noted in the lower spine bilaterally. The midline incision and right upper buttock battery incision sites are clean, no pathological discharge, no erythema, no redness or swelling. Bacitracin ointment, Steri-strips, dry sterile and Tegaderm dressing were applied. Patient is wearing abdominal binder. Past Procedures: 07/20/23: Nevro SCS Implant-50% pain relief 05/04/23: Nevro SCS Trial-85-90% pain relief PRIOR: Patient is a pleasant 62 years old male with history of ankylosing spondylitis of multiple sites in spine, thoracic spondylosis with myelopathy, parletoalveolar pneumopathy, bilateral sacroiliac joint pain, osteoarthritis, lumbar spondylosis, degeneration of lumbar intervertebral disc, lumbar radiculopathy presents today for initial evaluation of chronic low back pain and bilateral leg pain and worsening lower extremity weakness. Denies any recent trauma, injury or falls. He has been followed at [facility] and has received multiple injections including epidural, SI joint and lumbar facets with limited response. Denies previous spine surgery. Patient is also followed by his PCP, park landscape architect and rheumatology for continued increase in liver enzymes. He was referred to our office for potential neuromodulation with PNS device. Back pain is localized to lower back and sacral areas with radiation to both legs, in L5- S1 distribution worse on the left. Patient reports leg burning and numbness is constant and worse at night. He also reports chronic left arm and left face numbness due to thoracic outlet syndrome. Denies any fever, abdominal pain, bladder or bowel dysfunction or saddle anesthesia. Location Mid and lower back radiating down bilateral legs, left worse than right Duration Chronic pain for many years Characteristics of symptom or complaint Aching, hot, burning, stabbing, sharp, numbness, stiffness Aggravating or associated factors Sitting (shooting in back) or walking, prolonged standing (leg pain) Relieving factors Walking and standing makes back pain better, Lyrica, cyclobenzaprine Treatment PT early this year, minimal improvement with balance. Injections at [facility] Medical History Blister (nonthermal) of other finger, initial encounter Upper airway cough syndrome COVID-19 vaccine series completed ILD (interstitial lung disease) Ankylosing spondylitis Thoracic outlet syndrome COPD (chronic obstructive pulmonary disease) Acute hyponatremia Ankylosing spondylitis Chronic cough Organizing pneumonia Dyspnea on exertion Pneumonia Bronchitis GERD (gastroesophageal reflux disease) Hyperlipidemia Pulmonary nodules Social History Household Members: None Housing: House Do you presently have visiting nurse or other home services: No Alcohol intake: never Patient Tobacco Use Status: Never used Tobacco Second Hand Smoke Exposure: Yes (35 yr exposure at home) Advance Directives Date on File: 07/29/20 service: No Current occupational status: employed Review of Systems Const All systems reviewed & are unremarkable except as noted in HPI and below Reports as per HPI, Denies body aches, Denies chills, Denies difficulty sleeping, Denies fever(s), Denies headache(s), Denies malaise, Denies night sweats and Denies weakness ENT Denies headache(s) Neuro Denies headache(s) and Denies weakness Physical Exam Vital Signs: Last Vital Signs Pulse 75 08/03/23 09:22 BP 149/67 H 08/03/23 09:22 Pulse Ox 99 08/03/23 09:22 Oxygen Delivery Method Room Air 08/03/23 09:22 BMI result Body Mass Index 28.2 General: Appears afebrile. No acute distress. Alert and oriented. Mood and affect appropriate. Follows and participates in conversation appropriately. Respiratory effort is unlabored. No cough. Wearing face mask. Able to transition from sit to stand unassisted. Ambulates with bilaterally normal heel strike and toe off. All incisions are clean dry and intact. Healing bruising noted in the lower spine, no tenderness, no pathological discharge, no local temperature or erythema. Gulshan were removed. Dressings were changed in the office today. Assessment & Plan Assessment & Plan (1) Lumbosacral spondylosis: Code(s): M47.817 - Spondylosis without myelopathy or radiculopathy, lumbosacral region Category: Medical (2) Lumbar degenerative disc disease: Code(s): M51.36 - Other intervertebral disc degeneration, lumbar region Category: Medical (3) Chronic pain syndrome: Code(s): G89.4 - Chronic pain syndrome Category: Medical (4) Status post insertion of spinal cord stimulator: Code(s): Z96.89 - Presence of other specified functional implants Category: Surgical Plan Patient is 2 weeks s/p Nevro Lumbar SCS implant with 50% overall pain relief. Patient reports better mobility, better social interactions, better activities of daily living and improved sleep. Gulshan were removed today. Dressings were changed today. Patient is wearing his abdominal binder. Patient may remove dressing in 72 hours and start showering. Activity restrictions and precautions reviewed with patient. SCS device program was adjusted today by Shell Mckeon. All questions and concerns have been answered and patient agreed with the plan. Follow up as needed. Coding Level of Care Code Est Pt Level 3 (04034) Diagnoses Lumbosacral spondylosis M47.817 Lumbar degenerative disc disease M51.36 Chronic pain syndrome G89.4 Status post insertion of spinal cord stimulator Z96.89
[2023-08-03 09:22] VITALS: BP 149/67; PULSE 75; O2SAT 99; BMI 28.2
== END 2023-08-03 10:01 | disposition home or self-care (01) ==
PROVIDERS: PCP Physician Assistant Medical; Visit Provider Nurse Practitioner Family
DX: M47.817 Spondylosis without myelopathy or radiculopathy, lumbosacral region (principal); M51.36 Other intervertebral disc degeneration, lumbar region; G89.4 Chronic pain syndrome; Z96.89 Presence of other specified functional implants
CPT/HCPCS: 99213

== ENCOUNTER → 2023-08-03 09:14 | Outpatient (BNVA) | payer OTHER, SELFPAY ==
[2022-12-18 15:57] VITALS: BMI 28.8
== END ==
PROVIDERS: PCP Physician Assistant Medical; Visit Provider Nurse Practitioner Family

== ENCOUNTER 2023-08-10 08:46 | Outpatient (AMB) | payer OTHER, SELFPAY ==
[2022-12-18 15:57] VITALS: BMI 28.8
[2023-08-10 08:54] VITALS: BP 130/62; PULSE 68; O2SAT 97; BMI 28.4
--- NOTE | 2023-08-10 08:54 | MHC.OFFVIS ---
Vital Signs 08/10/23 08:54 Height 6 ft 2 in Weight 221 lb 9.033 oz BMI 28.4 BP 130/62 Blood Pressure Location Rt brachial Position Sitting Pulse 68 Pulse Source Doppler Pulse Oximetry (%) 97 Oxygen Delivery Method Room Air Intake Visit Reasons: copd/cough Allergies gluten Allergy (Severe, Verified 08/03/23 09:23) Diarrhea acetaminophen [From PERCOCET] Allergy (Unknown, Verified 08/03/23 09:23) VOMITING codeine [CODEINE] Allergy (Unknown, Verified 08/03/23 09:23) VOMITING oxycodone [From PERCOCET] Allergy (Unknown, Verified 08/03/23 09:23) VOMITING fluconazole Allergy (Verified 08/03/23 09:23) Unknown baclofen Adverse Reaction (Intermediate, Verified 08/03/23 09:23) Nightmare HPI HPI copd/cough: Details: 62-year-old? gentleman, lifetime nonsmoker, with underlying history of ankylosing? spondylitis followed by Rheumatology now on biologic, initially followed? for organizing pneumonia, chronic productive cough, and dyspnea on? exertion.? Patient previously hospitalized at [facility] with fungal pneumonia with Kathy and Aspergillus noted on? bronchial alveolar lavage cultures.? 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 consolidation therapy.? He has been discharged on voriconazole 400 twice a day and had improved symptom control, however he developed allergic reaction and required switching to IV micafungin.? He has had a total of 12 weeks weeks of IV micafungin therapy with significant improvement in his dyspnea and resolution of his productive cough.? Thereafter his PICC line was discontinued in January of 2021 and he completed pulmonary rehab.?Patient was switched to azathioprine and titrated slowly up to 200 mg daily with good control of his underlying pulmonary symptoms and titration off his chronic prednisone it that his respiratory symptoms are well controlled and GI side effects resolved. He denies any recent exacerbations. After the last office visit patient had spinal stimulator placed with postoperative difficulty breathing, he was evaluated in the emergency room in treated with a course of prednisone and now is essentially at baseline. [facility] Medical History Blister (nonthermal) of other finger, initial encounter Upper airway cough syndrome COVID-19 vaccine series completed ILD (interstitial lung disease) Ankylosing spondylitis Thoracic outlet syndrome COPD (chronic obstructive pulmonary disease) Acute hyponatremia Ankylosing spondylitis Chronic cough Organizing pneumonia Dyspnea on exertion Pneumonia Bronchitis GERD (gastroesophageal reflux disease) Hyperlipidemia Pulmonary nodules Social History Household Members: None Housing: House Do you presently have visiting nurse or other home services: No Alcohol intake: never Patient Tobacco Use Status: Never used Tobacco Second Hand Smoke Exposure: Yes (35 yr exposure at home) Advance Directives Date on File: 07/29/20 service: No Current occupational status: employed Review of Systems Const Denies daytime sleepiness, Denies excessive sweating, Denies fatigue, Denies fever(s), Denies lethargy, Denies malaise, Denies night sweats, Denies snoring and Denies weight loss Eyes Denies blurry vision and Denies itchy eyes ENT Denies nasal congestion, Denies post nasal drip, Denies sinus pain, Denies sinus pressure and Denies other ( Thrush) Card Denies chest pain, Denies pedal edema, Denies dyspnea, Denies orthopnea and Denies paroxysmal nocturnal dyspnea Resp Denies cough, Denies hemoptysis, Denies excessive phlegm production, Denies dyspnea, Denies snoring and Denies wheezing GI Denies abdominal pain and Denies heartburn Skin/Breast Denies rash Neuro Denies memory loss and Denies seizure-like activity Psych Denies abnormal sleep pattern, Denies anxiety and Denies memory loss Endo Denies excessive sweating, Denies fatigue and Denies heat intolerance Yusuf/Lymph Denies easy bruising Aller/Immun Denies itchy eyes, Denies seasonal rhinorrhea and Denies wheezing Physical Exam Vital Signs: Last Vital Signs Pulse 68 08/10/23 08:54 BP 130/62 08/10/23 08:54 Pulse Ox 97 08/10/23 08:54 Oxygen Delivery Method Room Air 08/10/23 08:54 BMI result Body Mass Index 28.4 Const General: no acute distress and alert Nutritional Appearance: not obese Orientation/consciousness: Other orientation findings ( oriented) HEENT Head: Yes atraumatic Eyes General: appearance normal, both eyes and all related structures Sclerae: sclerae normal EOM: EOMs intact bilaterally Neck Neck: Yes supple Lymphatic: no lymphadenopathy noted Resp Effort & Inspection: normal respiratory effort and no use of accessory muscles Auscultation: clear to auscultation bilaterally Cardio Rate: regular rate Rhythm: regular rhythm Heart sounds: no gallops, no murmurs and no rubs Skin General skin exam: other ( warm) Extrem General: No clubbing, No cyanosis and No edema Assessment & Plan Assessment & Plan (1) ILD (interstitial lung disease): Code(s): J84.9 - Interstitial pulmonary disease, unspecified Category: Medical (2) Dyspnea on exertion: Code(s): R06.00 - Dyspnea, unspecified Category: Medical Plan Well controlled on current regimen of azathioprine 200 mg daily without significant side effects. Results of most recent CT chest reviewed and do not demonstrate any active disease. Will continue with the current regimen. Will check LFT/BMP before next appointment. Orders: Orders Basic Metabolic Panel Today J84.9 - Interstitial pulmonary disease, unspecified Liver Panel Today J84.9 - Interstitial pulmonary disease, unspecified Coding Level of Care Code Est Pt Level 4 (53908) Diagnoses ILD (interstitial lung disease) J84.9 Dyspnea on exertion R06.00
== END 2023-08-10 09:12 | disposition home or self-care (01) ==
PROVIDERS: PCP Physician Assistant Medical; Visit Provider Internal Medicine Pulmonary Disease
DX: J84.9 Interstitial pulmonary disease, unspecified (principal); R06.00 Dyspnea, unspecified
CPT/HCPCS: 99214

== ENCOUNTER → 2023-08-10 08:46 | Outpatient (BNVA) | payer OTHER, SELFPAY ==
[2022-12-18 15:57] VITALS: BMI 28.8
== END ==
PROVIDERS: PCP Physician Assistant Medical; Visit Provider Internal Medicine Pulmonary Disease

== ENCOUNTER 2023-09-17 07:50 | Outpatient (REF) | payer OTHER, SELFPAY ==
[2022-12-18 15:57] VITALS: BMI 28.8
--- NOTE | ~2023-09-17 | US_ITS ---
EXAMINATION: US RETROPERITONEAL COMPLETE (RENAL) CLINICAL INFORMATION: Calculus of kidney. COMPARISON: CT abdomen and pelvis 08/02/2022 TECHNIQUE: Real-time imaging of the kidneys and bladder. Limited visualization due to bowel gas. FINDINGS: RIGHT KIDNEY: 13.2 x 5.3 x 5.1 cm (SAG x AP x TRV). No hydronephrosis. No renal calculi. Renal cortical thickness is normal. Limited visualization. LEFT KIDNEY: 13.2 x 6.6 x 6.4 cm (SAG x AP x TRV). No hydronephrosis. No renal calculi. Renal cortical thickness is normal. Limited visualization. . US/US renal BI IMPRESSION: No hydronephrosis. No renal calculi. Electronically signed by: Geraldine Montanez MD 10/09/2023 12:52 PM EDT
== END 2023-09-17 07:51 | disposition home or self-care (01) ==
LOC: HO.US 07:50
PROVIDERS: PCP Physician Assistant Medical; Visit Provider Physician Assistant Medical
DX: N20.0 Calculus of kidney (principal)
CPT/HCPCS: 76775

== ENCOUNTER 2023-12-06 08:14 | Outpatient (REF) | payer OTHER, SELFPAY ==
[2022-12-18 15:57] VITALS: BMI 28.8
--- NOTE | ~2023-12-06 | CT_ITS ---
EXAMINATION: CT ABDOMEN AND PELVIS WITHOUT AND WITH CONTRAST CLINICAL INFORMATION: Microscopic hematuria. COMPARISON: CT dated August 02, 2022. TECHNIQUE: Noncontrast CT of the abdomen and pelvis is performed followed by split bolus contrast-enhanced images using 85 mL Omnipaque 350 contrast. Postcontrast imaging is performed during the combined nephrogram and excretion phase. Sagittal and coronal reformatted images were obtained on the technologist's workstation for both the precontrast and postcontrast phases. This CT examination was performed using dose optimization techniques as appropriate, variously including the following: *Automated exposure control *Adjustment of mA and/or kV according to patient size (this includes techniques or standardized protocols for targeted exams where dose is matched to indication/reason for exam; i.e. extremities or head) *Use of iterative reconstruction technique DLP: 948 mGy-cm FINDINGS: Submitted for interpretation on January 29, 2024. LUNG BASES: No acute airspace disease. Limited examination LIVER, GALLBLADDER, AND BILIARY TREE: Liver measures 15 cm. No focal mass. Portal veins and hepatic veins are patent. Intrahepatic portion of the IVC appears patent. No pericholecystic fluid collection or gallbladder wall thickening. No intrahepatic or extrahepatic biliary ductal dilatation. PANCREAS: No focal mass. No peripancreatic fluid collection. No main pancreatic ductal dilatation. SPLEEN: Measures 9 cm. No focal mass. Punctate calcification. ADRENAL GLANDS: No nodular lesions. KIDNEYS AND URETERS: Right kidney: 1 mm calculus in the lower pole. No hydronephrosis. No renal mass. Normal enhancement pattern and urinary excretion into the collecting system. Left kidney: 1 mm nonobstructing calculus, midportion. No hydronephrosis. No gross renal mass. Normal enhancement pattern and urinary excretion into the collecting system. BLADDER: Fluid-filled. GASTROINTESTINAL TRACT: There is a 1 cm low density within the lumen of the distal small bowel loops with probable fat density. Abundant stool within the large intestine. There is swirling of the mesentery involving the distal ileal loops. Appendix is normal. No intestinal obstruction pattern. No ascites. No pneumoperitoneum. There is mesenteric edema pattern prominent mesenteric lymph nodes. No pneumatosis intestinalis. ABDOMINAL WALL: Fat-containing umbilical hernia and diastases abdominal rectus muscles. LYMPH NODES: No specific prominent lymph nodes, mesenteric and retroperitoneal. VASCULAR: Calcified plaques throughout the abdominal aorta wall and iliac arteries without aneurysm or dissection. Calcified plaques in the origin of the mesenteric arteries. PELVIC VISCERA: No enlargement of the seminal vesicles or the prostate gland. Punctate calcifications. OSSEUS STRUCTURES: Spina bifida occulta, S1 and S2. Multilevel thoracolumbar spondylosis. Syndesmophyte formation lower thoracic spine with preservation of the intervertebral disc height in the lower gastric spine. There is a intraspinal canal stimulator device in the fat planes of the right gluteal region and entering the dorsal aspect of the central spinal canal at T12-L1 deep is not included. Syndesmophyte formation at the sacroiliac joints. Exophytic bone formation at the iliac crest, bilaterally. CT/CT urogram IMPRESSION: Nonobstructing nephrolithiasis, bilaterally. No renal mass. Fat-containing umbilical hernia. Atherosclerosis disease. Consider DISH, lower thoracic spine. Spina bifida occulta, S1-S2. Electronically signed by: Richy Costello MD 01/29/2024 10:18 AM LUCIL[facility]
[2023-12-06] MEDS: iohexoL 350 MG/ML 100 ML INFUS..BTL 85 ML IV (09:25)
[2023-12-07 08:16] LABS: Creatinine POC 0.6 mg/dL (0.5-1.4); GFR POC > 60
== END 2023-12-06 08:15 | disposition home or self-care (01) ==
LOC: HO.CT 08:14
PROVIDERS: PCP Physician Assistant Medical; Visit Provider Nurse Practitioner Family
DX: R31.29 Other microscopic hematuria (principal)
CPT/HCPCS: 74178; 82565; Q9967

== ENCOUNTER → 2023-12-06 08:17 | Outpatient (BNV) | payer OTHER, SELFPAY ==
[2022-12-18 15:57] VITALS: BMI 28.8
== END ==
PROVIDERS: PCP Physician Assistant Medical; Visit Provider Radiology Diagnostic Radiology
DX: R31.29 Other microscopic hematuria (principal)
CPT/HCPCS: 74178

== ENCOUNTER 2023-12-11 13:40 | Outpatient (AMB) | payer OTHER, SELFPAY ==
[2022-12-18 15:57] VITALS: BMI 28.8
[2023-12-11 14:02] VITALS: BP 140/62; PULSE 56; O2SAT 97; BMI 27.0
--- NOTE | 2023-12-11 14:02 | MHC.OFFVIS ---
Vital Signs 12/11/23 14:02 Height 6 ft 2 in Weight 210 lb 8.663 oz BMI 27.0 BP 140/62 H Blood Pressure Location Lt brachial Position Sitting Pulse 56 Pulse Source Pulse Oximeter Pulse Oximetry (%) 97 Oxygen Delivery Method Room Air Intake Visit Reasons: COPD Operations Developer Required: No Allergies gluten Allergy (Severe, Verified 08/03/23 09:23) Diarrhea acetaminophen [From PERCOCET] Allergy (Unknown, Verified 08/03/23 09:23) VOMITING codeine [CODEINE] Allergy (Unknown, Verified 08/03/23 09:23) VOMITING oxycodone [From PERCOCET] Allergy (Unknown, Verified 08/03/23 09:23) VOMITING fluconazole Allergy (Verified 08/03/23 09:23) Unknown baclofen Adverse Reaction (Intermediate, Verified 08/03/23 09:23) Nightmare HPI HPI COPD: Details: 62-year-old? gentleman, lifetime nonsmoker, with underlying history of ankylosing? spondylitis followed by Rheumatology now on biologic, initially followed? for organizing pneumonia, chronic productive cough, and dyspnea on? exertion.? Patient previously hospitalized at [facility] with fungal pneumonia with Kathy and Aspergillus noted on? bronchial alveolar lavage cultures.? 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 consolidation therapy.? He has been discharged on voriconazole 400 twice a day and had improved symptom control, however he developed allergic reaction and required switching to IV micafungin.? He has had a total of 12 weeks weeks of IV micafungin therapy with significant improvement in his dyspnea and resolution of his productive cough.? Thereafter his PICC line was discontinued in January of 2021 and he completed pulmonary rehab.?Patient was switched to azathioprine and titrated slowly up to 200 mg daily with good control of his underlying pulmonary symptoms and titration off his chronic prednisone. He has been doing well until approximately 2 months prior to this appointment when he started to develop productive cough that been slowly worsening and also his recovery from dyspnea with exercise has worsened. [facility] Medical History Blister (nonthermal) of other finger, initial encounter Upper airway cough syndrome COVID-19 vaccine series completed ILD (interstitial lung disease) Ankylosing spondylitis Thoracic outlet syndrome COPD (chronic obstructive pulmonary disease) Acute hyponatremia Ankylosing spondylitis Chronic cough Organizing pneumonia Dyspnea on exertion Pneumonia Bronchitis GERD (gastroesophageal reflux disease) Hyperlipidemia Pulmonary nodules Social History Household Members: None Housing: House Do you presently have visiting nurse or other home services: No Alcohol intake: never Patient Tobacco Use Status: Never used Tobacco Second Hand Smoke Exposure: Yes (35 yr exposure at home) Advance Directives Date on File: 07/29/20 service: No Current occupational status: employed Review of Systems Const Denies daytime sleepiness, Denies excessive sweating, Denies fatigue, Denies fever(s), Denies lethargy, Denies malaise, Denies night sweats, Denies snoring and Denies weight loss Eyes Denies blurry vision and Denies itchy eyes ENT Denies nasal congestion, Denies post nasal drip, Denies sinus pain, Denies sinus pressure and Denies other ( Thrush) Card Denies chest pain, Denies pedal edema, Denies dyspnea, Reports dyspnea on exertion, Denies orthopnea and Denies paroxysmal nocturnal dyspnea Resp Reports cough, Denies hemoptysis, Reports excessive phlegm production, Denies dyspnea, Reports dyspnea on exertion, Denies snoring and Denies wheezing GI Denies abdominal pain and Denies heartburn Musc Denies myalgias, Denies arthralgias and Denies joint swelling Skin/Breast Denies rash Neuro Denies memory loss and Denies seizure-like activity Psych Denies abnormal sleep pattern, Denies anxiety and Denies memory loss Endo Denies excessive sweating, Denies fatigue and Denies heat intolerance Yusuf/Lymph Denies easy bruising Aller/Immun Denies itchy eyes, Denies seasonal rhinorrhea and Denies wheezing Physical Exam Vital Signs: Last Vital Signs Pulse 56 12/11/23 14:02 BP 140/62 H 12/11/23 14:02 Pulse Ox 97 12/11/23 14:02 Oxygen Delivery Method Room Air 12/11/23 14:02 BMI result Body Mass Index 27.0 Const General: no acute distress and alert Nutritional Appearance: not obese Orientation/consciousness: Other orientation findings ( oriented) HEENT Head: Yes atraumatic Eyes General: appearance normal, both eyes and all related structures Sclerae: sclerae normal EOM: EOMs intact bilaterally Neck Neck: Yes supple Lymphatic: no lymphadenopathy noted Resp Effort & Inspection: normal respiratory effort and no use of accessory muscles Auscultation: clear to auscultation bilaterally Cardio Rate: regular rate Rhythm: regular rhythm Heart sounds: no gallops, no murmurs and no rubs Skin General skin exam: other ( warm) Extrem General: No clubbing, No cyanosis and No edema Assessment & Plan Assessment & Plan (1) ILD (interstitial lung disease): Code(s): J84.9 - Interstitial pulmonary disease, unspecified Category: Medical Plan: Baseline controlled on azathioprine 200 mg daily. Continue current regimen. (2) Fungal pneumonia: Code(s): B49 - Unspecified mycosis; J17 - Pneumonia in diseases classified elsewhere Category: Medical Plan: Prior episodes of fungal pneumonia requiring IV micafungin with subsequent exacerbations, treated with p.o. itraconazole, patient did have an allergic reaction to p.o. voriconazole. Will treat with another course of itraconazole and empiric azithromycin. (3) Dyspnea on exertion: Code(s): R06.00 - Dyspnea, unspecified Category: Medical Plan: Multifactorial with underlying cardiac and pulmonary components. Medications: New itraconazole must administer with a meal/food 200 mg (2 x 100 mg) PO BID 28 days 112 caps 0RF azithromycin For 250 mg dose pack: take 500 mg today (day 1), then 250 mg for 4 days (days 2-5) PO 6 tabs 0RF Coding Level of Care Code Est Pt Level 4 (99766) Complex EM visit Add On G2211 Diagnoses ILD (interstitial lung disease) J84.9 Fungal pneumonia B49; J17 Dyspnea on exertion R06.00
== END 2023-12-11 14:27 | disposition home or self-care (01) ==
LOC: HO.HPS 13:41
PROVIDERS: PCP Physician Assistant Medical; Visit Provider Internal Medicine Pulmonary Disease
DX: J84.9 Interstitial pulmonary disease, unspecified (principal); B49 Unspecified mycosis; J17 Pneumonia in diseases classified elsewhere; R06.00 Dyspnea, unspecified
CPT/HCPCS: 99214

== ENCOUNTER → 2023-12-11 13:40 | Outpatient (BNVA) | payer OTHER, SELFPAY ==
[2022-12-18 15:57] VITALS: BMI 28.8
== END ==
PROVIDERS: PCP Physician Assistant Medical; Visit Provider Internal Medicine Pulmonary Disease

== ENCOUNTER 2024-01-09 09:13 | Outpatient (AMB) | payer OTHER, SELFPAY ==
[2022-12-18 15:57] VITALS: BMI 28.8
[2024-01-09 09:14] VITALS: BP 122/62; PULSE 67; O2SAT 98; BMI 26.6
--- NOTE | 2024-01-09 09:14 | A.OFFVIS_ITS ---
Vital Signs 01/09/24 09:14 Height 6 ft 2 in Weight 207 lb BMI 26.6 BP 122/62 Blood Pressure Location Rt brachial Position Sitting Pulse 67 Pulse Source Doppler Pulse Oximetry (%) 98 Oxygen Delivery Method Room Air Intake Visit Reasons: COPD Allergies gluten Allergy (Severe, Verified 08/03/23 09:23) Diarrhea acetaminophen [From PERCOCET] Allergy (Unknown, Verified 08/03/23 09:23) VOMITING codeine [CODEINE] Allergy (Unknown, Verified 08/03/23 09:23) VOMITING oxycodone [From PERCOCET] Allergy (Unknown, Verified 08/03/23 09:23) VOMITING fluconazole Allergy (Verified 08/03/23 09:23) Unknown baclofen Adverse Reaction (Intermediate, Verified 08/03/23 09:23) Nightmare HPI HPI COPD: Details: 63-year-old? gentleman, lifetime nonsmoker, with underlying history of ankylosing? spondylitis followed by Rheumatology now on biologic, initially followed? for organizing pneumonia, chronic productive cough, and dyspnea on? exertion.? Patient previously hospitalized at [facility] with fungal pneumonia with Kathy and Aspergillus noted on? bronchial alveolar lavage cultures.? 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 consolidation therapy.? He has been discharged on voriconazole 400 twice a day and had impro yuli symptom control, however he developed allergic reaction and required switching to IV micafungin.? He has had a total of 12 weeks weeks of IV micafungin therapy with significant improvement in his dyspnea and resolution of his productive cough.? Thereafter his PICC line was discontinued in January of 2021 and he completed pulmonary rehab.?Patient was switched to azathioprine and titrated slowly up to 200 mg daily with good control of his underlying pulmonary symptoms and titration off his chronic prednisone. After the last office visit patient was started on itraconazole for worsening cough and dyspnea and completed approximately I months of therapy with significant improvement, but not complete resolution of his symptoms. [facility] Medical History Blister (nonthermal) of other finger, initial encounter Upper airway cough syndrome COVID-19 vaccine series completed ILD (interstitial lung disease) Ankylosing spondylitis Thoracic outlet syndrome COPD (chronic obstructive pulmonary disease) Acute hyponatremia Ankylosing spondylitis Chronic cough Organizing pneumonia Dyspnea on exertion Pneumonia Bronchitis GERD (gastroesophageal reflux disease) Hyperlipidemia Pulmonary nodules Social History Household Members: None Housing: House Do you presently have visiting nurse or other home services: No Alcohol intake: never Patient Tobacco Use Status: Never used Tobacco Second Hand Smoke Exposure: Yes (35 yr exposure at home) Advance Directives Date on File: 07/29/20 service: No Current occupational status: employed Review of Systems Const Denies fever(s), Denies lethargy, Denies malaise and Denies weight loss Card Denies chest pain, Denies pedal edema, Denies dyspnea, Reports dyspnea on exertion, Denies orthopnea and Denies paroxysmal nocturnal dyspnea Resp Reports cough, Denies hemoptysis, Reports excessive phlegm production, Denies dyspnea, Reports dyspnea on exertion and Denies wheezing Skin/Breast Denies rash Aller/Immun Denies wheezing Physical Exam Vital Signs: Last Vital Signs Pulse 67 01/09/24 09:14 BP 122/62 01/09/24 09:14 Pulse Ox 98 01/09/24 09:14 Oxygen Delivery Method Room Air 01/09/24 09:14 BMI result Body Mass Index 26.6 Const General: no acute distress and alert Nutritional Appearance: not obese Orientation/consciousness: Other orientation findings ( oriented) HEENT Head: Yes atraumatic Eyes General: appearance normal, both eyes and all related structures Sclerae: sclerae normal EOM: EOMs intact bilaterally Neck Neck: Yes supple Lymphatic: no lymphadenopathy noted Resp Effort & Inspection: normal respiratory effort and no use of accessory muscles Auscultation: clear to auscultation bilaterally Cardio Rate: regular rate Rhythm: regular rhythm Heart sounds: no gallops, no murmurs and no rubs Skin General skin exam: other ( warm) Extrem General: No clubbing, No cyanosis and No edema Assessment & Plan Assessment & Plan (1) ILD (interstitial lung disease): Code(s): J84.9 - Interstitial pulmonary disease, unspecified Category: Medical Plan: Baseline controlled on azathioprine 200 mg daily. Continue current regimen. Will add brief prednisone course secondary to underlying going exacerbation. (2) Fungal pneumonia: Code(s): B49 - Unspecified mycosis; J17 - Pneumonia in diseases classified elsewhere Category: Medical Plan: Improved significantly with itraconazole, however not completely resolved. Will extend itraconazole for additional 2 weeks and add empiric doxycycline. Medications: New prednisone 40 mg (2 x 20 mg) PO DAILY 10 tabs 0RF doxycycline monohydrate 100 mg PO BID 14 caps 0RF Changed From itraconazole must administer with a meal/food 200 mg (2 x 100 mg) PO BID 28 days 112 caps 0RF To itraconazole must administer with a meal/food 200 mg (2 x 100 mg) PO BID 40 caps 0RF 10 days Discontinued azithromycin Discontinued Reason: Doctor's Order For 250 mg dose pack: take 500 mg today (day 1), then 250 mg for 4 days (days 2-5) PO 6 tabs 0RF Coding Level of Care Code Est Pt Level 4 (09493) Complex EM visit Add On G2211 Diagnoses ILD (interstitial lung disease) J84.9 Fungal pneumonia B49; J17
== END 2024-01-09 09:33 | disposition home or self-care (01) ==
PROVIDERS: PCP Physician Assistant Medical; Visit Provider Internal Medicine Pulmonary Disease
DX: J84.9 Interstitial pulmonary disease, unspecified (principal); B49 Unspecified mycosis; J17 Pneumonia in diseases classified elsewhere
CPT/HCPCS: 99214

== ENCOUNTER → 2024-01-09 09:13 | Outpatient (BNVA) | payer OTHER, SELFPAY ==
[2022-12-18 15:57] VITALS: BMI 28.8
== END ==
PROVIDERS: PCP Physician Assistant Medical; Visit Provider Internal Medicine Pulmonary Disease

== ENCOUNTER 2024-03-06 08:28 | Outpatient (REF) | payer OTHER, SELFPAY ==
[2022-12-18 15:57] VITALS: BMI 28.8
--- NOTE | ~2024-03-06 | CT_ITS ---
CLINICAL HISTORY: J84.9 - Interstitial pulmonary disease, unspecified CT chest without contrast Comparison: 07/20/2023 08:42 PM EDT: CTPR PROTOCOL, 07/25/2021 08:01 AM EDT: CTSR: CT CHEST WO CO Findings: The heart is normal size. The visualized thyroid and mediastinum are unremarkable. No consolidation or effusion. The upper abdomen is unremarkable. The bones are intact. IMPRESSION: 1. Unremarkable chest CT. This document has been electronically signed by: Sergio Ro MD on 03/07/2024 08:18:39
== END 2024-03-06 08:29 | disposition home or self-care (01) ==
LOC: HO.CT 08:28
PROVIDERS: PCP Physician Assistant Medical; Visit Provider Internal Medicine Pulmonary Disease
DX: J84.9 Interstitial pulmonary disease, unspecified (principal)
CPT/HCPCS: 71250

== ENCOUNTER → 2024-03-06 08:30 | Outpatient (BNV) | payer OTHER, SELFPAY ==
[2022-12-18 15:57] VITALS: BMI 28.8
== END ==
PROVIDERS: PCP Physician Assistant Medical; Visit Provider Specialist
DX: J84.9 Interstitial pulmonary disease, unspecified (principal)
CPT/HCPCS: 71250

== ENCOUNTER 2024-04-02 11:24 | Outpatient (AMB) | payer OTHER, SELFPAY ==
[2022-12-18 15:57] VITALS: BMI 28.8
--- NOTE | 2024-04-02 11:25 | A.OFFVIS_ITS ---
Vital Signs 04/02/24 11:26 Height 6 ft 2 in Weight 211 lb 10.3 oz BMI 27.2 BP 122/66 Blood Pressure Location Rt brachial Position Sitting Pulse 68 Pulse Source Doppler Pulse Oximetry (%) 96 Oxygen Delivery Method Room Air Intake Visit Reasons: cough Allergies gluten Allergy (Severe, Verified 08/03/23 09:23) Diarrhea acetaminophen [From PERCOCET] Allergy (Unknown, Verified 08/03/23 09:23) VOMITING codeine [CODEINE] Allergy (Unknown, Verified 08/03/23 09:23) VOMITING oxycodone [From PERCOCET] Allergy (Unknown, Verified 08/03/23 09:23) VOMITING fluconazole Allergy (Verified 08/03/23 09:23) Unknown baclofen Adverse Reaction (Intermediate, Verified 08/03/23 09:23) Nightmare HPI HPI cough: Details: 63-year-old? gentleman, lifetime nonsmoker, with underlying history of ankylosing? spondylitis followed by Rheumatology now on biologic, initially followed? for organizing pneumonia, chronic productive cough, and dyspnea on? exertion.? Patient previously hospitalized at [facility] with fungal pneumonia with Kathy and Aspergillus noted on? bronchial alveolar lavage cultures.? 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 consolidation therapy.? He has been discharged on voriconazole 400 twice a day and had improved symptom control, however he developed allergic reaction and required switching to IV micafungin.? He has had a total of 12 weeks weeks of IV micafungin therapy with significant improvement in his dyspnea and resolution of his productive cough.? Thereafter his PICC line was discontinued in January of 2021 and he completed pulmonary rehab.?Patient was switched to azathioprine and titrated slowly up to 200 mg daily with good control of his underlying pulmonary symptoms and titration off his chronic prednisone. After the last office visit patient was doing reasonably well until approximately 4-6 weeks prior when he started to develop worsening nonproductive cough and some dyspnea on exertion. He did have follow-up CT chest that showed essentially stable findings over the last 3 years, and specifically no worsening of his underlying interstitial lung disease. [facility] Medical History Blister (nonthermal) of other finger, initial encounter Upper airway cough syndrome COVID-19 vaccine series completed ILD (interstitial lung disease) Ankylosing spondylitis Thoracic outlet syndrome COPD (chronic obstructive pulmonary disease) Acute hyponatremia Ankylosing spondylitis Chronic cough Organizing pneumonia Dyspnea on exertion Pneumonia Bronchitis GERD (gastroesophageal reflux disease) Hyperlipidemia Pulmonary nodules Social History Household Members: None Housing: House Do you presently have visiting nurse or other home services: No Alcohol intake: never Patient Tobacco Use Status: Never used Tobacco Second Hand Smoke Exposure: Yes (35 yr exposure at home) Advance Directives Date on File: 07/29/20 service: No Current occupational status: employed Review of Systems Const Denies daytime sleepiness, Denies excessive sweating, Denies fatigue, Denies fever(s), Denies lethargy, Denies malaise, Denies night sweats, Denies snoring and Denies weight loss Eyes Denies blurry vision and Denies itchy eyes ENT Denies nasal congestion, Denies post nasal drip, Denies sinus pain, Denies sinus pressure and Denies other ( Thrush) Card Denies chest pain, Denies pedal edema, Denies dyspnea, Reports dyspnea on exertion, Denies orthopnea and Denies paroxysmal nocturnal dyspnea Resp Reports cough, Denies hemoptysis, Denies excessive phlegm production, Denies dyspnea, Reports dyspnea on exertion, Denies snoring and Denies wheezing GI Denies abdominal pain and Denies heartburn Musc Denies myalgias, Denies arthralgias and Denies joint swelling Skin/Breast Denies rash Neuro Denies memory loss and Denies seizure-like activity Psych Denies abnormal sleep pattern, Denies anxiety and Denies memory loss Endo Denies excessive sweating, Denies fatigue and Denies heat intolerance Yusuf/Lymph Denies easy bruising Aller/Immun Denies itchy eyes, Denies seasonal rhinorrhea and Denies wheezing Physical Exam Vital Signs: Last Vital Signs Pulse 68 04/02/24 11:26 BP 122/66 04/02/24 11:26 Pulse Ox 96 04/02/24 11:26 Oxygen Delivery Method Room Air 04/02/24 11:26 BMI result Body Mass Index 27.2 Const General: no acute distress and alert Nutritional Appearance: not obese Orientation/consciousness: Other orientation findings ( oriented) HEENT Head: Yes atraumatic Eyes General: appearance normal, both eyes and all related structures Sclerae: sclerae normal EOM: EOMs intact bilaterally Neck Neck: Yes supple Lymphatic: no lymphadenopathy noted Resp Effort & Inspection: normal respiratory effort and no use of accessory muscles Auscultation: clear to auscultation bilaterally Cardio Rate: regular rate Rhythm: regular rhythm Heart sounds: no gallops, no murmurs and no rubs Skin General skin exam: other ( warm) Extrem General: No clubbing, No cyanosis and No edema Assessment & Plan Assessment & Plan (1) ILD (interstitial lung disease): Code(s): J84.9 - Interstitial pulmonary disease, unspecified Category: Medical Plan: Results of CT chest reviewed, no changes in lung parenchyma within the last 3 years. Symptomatically worse nonproductive cough. Continue on azathioprine and add prednisone taper. (2) Dyspnea on exertion: Code(s): R06.00 - Dyspnea, unspecified Category: Medical Plan: Multifactorial with underlying pulmonary, cardiac, and rheumatologic etiologies Medications: New prednisone Take 5 tabs daily for 5 days, then go down by 1 tab every 5 days 10 mg PO DIRECTED 75 tabs 0RF Coding Level of Care Code Est Pt Level 4 (29694) Diagnoses ILD (interstitial lung disease) J84.9 Dyspnea on exertion R06.00
[2024-04-02 11:26] VITALS: BP 122/66; PULSE 68; O2SAT 96; BMI 27.2
--- OUTSIDE RECORDS SUMMARY | 2024-04-02 12:04 | XMS_ITS | Clinical Summary ---
Author Organization [facility], Address [address] [place] [address] [place] [address] Phone Care Team Providers Care Senior Planner Name Role Phone Hossein Marion MD Primary Care Provider Allergies Active Allergy Reactions Criticality Noted Date Comments Codeine 04/21/2020 Oxycodone 04/21/2020 Oxycodone-Acetaminophen 04/07/2021 Medications simvastatin (ZOCOR) 20 MG tablet Take 20 mg by mouth 4 Active omeprazole (PriLOSEC) [address] capsule TAKE ONE CAPSULE BY MOUTH EVERY DAY WHILE ON NAPROXEN TO PROTECT YOUR STOMACH 2 Active naproxen (NAPROSYN) 500 MG tablet Take 500 mg by mouth in the morning and 500 mg in the evening. 2 Active midodrine (PROAMATINE) 2.5 MG tablet Take 2.5 mg by mouth in the morning and 2.5 mg at noon and 2.5 mg in the evening. 2 Active gabapentin (NEURONTIN) 600 MG tablet Take 600 mg by mouth in the morning and 600 mg at noon and 600 mg in the evening. 2 Active fluticasone (FLONASE) 50 MCG/ACT nasal spray 1 spray 4 Active cetirizine (ZyrTEC) 10 MG tablet TAKE ONE TABLET BY MOUTH EVERY DAY NEEDED FOR ALLERGIES OR RHINITIS 2 Active carBAMazepine (CARBATROL) 300 MG 12 hr capsule Take 600 mg by mouth Active atorvastatin (LIPITOR) 10 MG tablet Take 10 mg by mouth 1 (one) time each day 2 Active albuterol HFA (PROVENTIL HFA;VENTOLIN HFA) 108 (90 Base) MCG/ACT inhaler Inhale 2 puffs every 6 (six) hours if needed Active albuterol (2.5 MG/3ML) 0.083% nebulizer solution Inhale 2.5 mg 1 Active Active Problems Problem Noted Date Diagnosed Date Chest wall pain 04/07/2021 Ankylosing spondylitis 03/31/2021 Nephrolithiasis 03/31/2021 Thoracic outlet syndrome 03/31/2021 Social History Tobacco Use Types Packs/Day Years Used Date Smoking Tobacco: Never Smokeless Tobacco: Never Sex and Gender Information Value Date Recorded Sex Assigned at Not on file Legal Sex Male 9:32 AM EDT Gender Identity Not on file Sexual Orientation Not on file Plan of Treatment Health Maintenance Due Date Last Done Comments Pneumococcal Vaccine: Pediat rics (0 to 5 Years) and At-Risk Patients (6 to 64 Years) (1 of 2 - PCV) 1966 Colorectal Cancer Screening: Annual FOBT 2009 Colorectal Cancer Screening: Colonoscopy 2009 Colorectal Cancer Screening: Sigmoidoscopy 2009 Hepatitis B Vaccine (1 of 3 - Risk 3-dose series) 09/2020 Influenza Vaccine (#1) 2023 01/21/[address] [place] [id number] [facility] Care Teams Senior Planner Relationship Specialty Start Date End Date Hossein Marion MD PCP - General Internal Medicine 04/07/21
--- OUTSIDE RECORDS SUMMARY | 2024-04-02 12:04 | XMS_ITS | Clinical Summary ---
Author Organization [facility] Address [address] [place] [id number] Care Team Providers Care Cylinder Tester Name Role Phone Sussy Thurston DO Primary Care P rovider Allergies Active Allergy Reactions Criticality Noted Date Comments Codeine 04/21/2020 Oxycodone 04/21/2020 Medications Medication Sig Dispensed Refills Start Date End Date Status cetirizine (ZyrTEC) 10 MG tablet Take 10 mg by mouth daily. 0 Active simvastatin (ZOCOR) tablet 20 mg Take 20 mg by mouth every night at bedtime. 0 Active omeprazole (PriLOSEC) 20 MG capsule Take 20 mg by mouth daily. 0 Active carBAMazepine, Antipsychotic, 300 MG CP12 Take 600 mg by mouth. 0 Active albuterol (PROVENTIL HFA;VENTOLIN HFA) 108 (90 Base) MCG/ACT inhaler Inhale 2 puffs into the lungs every 6 (six) hours as needed for wheezing. 0 Active fluticasone (FLONASE) 50 MCG/ACT nasal spray spray/apply 1 spray in each nostril daily. 0 Active predniSONE (DELTASONE) tablet 20 mg Take 30 mg by mouth. 0 Active Active Problems No known active problems Family History Medical History Relation Name Comments Cancer Maternal Uncle Cancer Mother Lung Cancer Diabetes Mother Cancer Paternal Aunt Cancer Paternal Uncle Relation Name Status Comments Maternal Uncle Mother Paternal Aunt Paternal Uncle Social History Tobacco Use Types Packs/Day Years Used Date Smoking Tobacco: Never Smokeless Tobacco: Never Alcohol Use Standard Drinks/Week Comments No 0 (1 standard drink = 0.6 oz pur e alcohol) Sex and Gender Information Value Date Recorded Sex Assigned at Male 03/31/2020 11:50 AM EST Gender Identity Not on file Sexual Orientation Not on file Job Start Date Occupation Industry Not on file Not on file Not on file Last Filed Vital Signs Vital Sign Reading Time Taken Comments Blood Pressure 145/61 04/21/2020 2:28 PM EST Pulse 55 04/21/2020 2:28 PM EST Temperature 37.4 ??C (99.3 ??F) 04/21/2020 2:28 PM ES T Respiratory Rate - - Oxygen Saturation - - Inhaled Oxygen Concentration - - Weight 83 kg (183 lb) 04/21/2020 2:28 PM EST Height 188 cm (6' 2 ) 04/21/2020 2:28 PM EST Body Mass Index 23.5 04/21/2020 2:28 PM EST Plan of Treatment Health Maintenance Due Date Last Done Comments Hepatitis C Screening 1960 COVID-19 Vaccine (#1) 04/19/1961 Depression Screening 1972 Preventative Health Evaluation 1978 Colon Cancer Screening (Colonoscopy) 2005 Shingrix-Zoster Vaccine (1 of 2) 2010 DTap / Tdap / Td (2 - Td or Tdap) 03/05/2019 03/05/2009 Influenza Vaccine (#1) 2023 8, 02/11/2015, 10/29/2012, Additional history exists RSV Adult > 60+ Yrs or (1 - 1-dose 75+ series) 10/21/2035 Hepatitis B Vaccines Aged Out No long er eligible based on patient's age to complete this topic Pneumococcal Vaccine Aged Out No long er eligible based on patient's age to complete this topic RSV Ped < 20 months Aged Out No longe r eligible based on patient's age to complete this topic Insurance Payer Benefit Plan / Group Subscriber ID Effective Dates Phone Address [facility] [id number] 2020-Present [address] [facility] [id number] [place] [address] HMO Care Teams Cylinder Tester Relationship Specialty Start Date End Date Sussy Thurston DO PCP - General Raw Cheese Worker 04/21/20
--- OUTSIDE RECORDS SUMMARY | 2024-04-02 12:04 | XMS_ITS | Referral Summary ---
Author Organization [facility] Address [address] [place] [address] Care Team Providers Care Lab Animal Technologist Name Role Phone Doni RUSSO MD, Hossein Luz Primary Care Provider [phone] Medications albuterol 2.5 mg/3 mL (0.083%) nebulizer solution Active albuterol (PROAIR HFA,VENTOLIN HFA) 90 mcg inhaler Inhale 2 puffs by mouth every 6 hours as needed. Active atorvastatin (LIPITOR) 10 mg tablet Take 10 mg by mouth. 01/07/2021 Active cetirizine (ZyrTEC) 10 mg tablet 03/16/2021 Active fluticasone propionate (FLONASE) 50 mcg/actuation nasal spray 1 spray. Active gabapentin (NEURONTIN) 800 mg tablet 05/17/2021 Active infliximab-dyyb (INFLECTRA INTRAVENOU) Active omeprazole (PriLOSEC) 20 mg capsule TAKE ONE CAPSULE BY MOUTH EVERY DAY WHILE ON NAPROXEN TO PROTECT YOUR STOMACH 03/21/2021 Active diphenhydrAMINE (BENADRYL) 25 mg capsule Take 75 mg by mouth every night. Active PREDNISONE, BULK, MISC 10 mg. Active mycophenolate (CELLCEPT) 500 mg tablet 750 mg 2 times a day. 09/10/2021 Active Active Problems Problem Noted Date Diagnosed Date History of fungal pneumonia 06/01/2021 Social History Tobacco Use Types Packs/Day Years Used Date Smoking Tobacco: Never Smokeless Tobacco: Never Tobacco Cessation:Counseling Given: Not Answered Sex and Gender Information Value Date Recorded Sex Assigned at Male 05/29/2021 2:43 PM EDT Legal Sex Male 2:26 PM EST Gender Identity Male 05/29/2021 2:43 PM EDT Sexual Orientation Straight 05/29/2021 2: 43 PM EDT Last Filed Vital Signs Vital Sign Reading Time Taken Comments Blood Pressure 155/83 11/28/2021 9:47 AM EDT Pulse 75 11/28/2021 9:47 AM EDT Temperature - - Respiratory Rate 20 11/28/2021 9:47 AM EDT Oxygen Saturation 98% 11/28/2021 9:47 AM EDT Inhaled Oxygen Concentration - - Weight 95.4 kg (210 lb 6.4 oz) 11/28/2021 9:47 A M EDT Height 188 cm (6' 2 ) 11/28/2021 9:47 AM EDT Body Mass Index 27.01 11/28/2021 9:47 AM EDT Plan of Treatment Not on file Insurance [facility] Care Teams Lab Animal Technologist Relationship Specialty Start Date End Date Hossein Marion III, MD PCP - General Internal Medicine 04/20/21
--- OUTSIDE RECORDS SUMMARY | 2024-04-02 12:04 | XMS_ITS | Encounter Summary ---
Author Organization [facility], Address [address] [place] [address] Phone Care Team Providers Care Capital Project Engineer Name Role Phone Hossein Marion MD Primary Care Provider [phone] Encounter Details Date Type Department Care Team (Late st Contact Info) Description 04/20/2021 Documentation Only [facility], [address] [place] [phone] Mani Bedolla MD [address] [place] [phone] Social History Tobacco Use Types Packs/Day Years Used Date Smoking Tobacco: Never Smokeless Tobacco: Never Sex and Gender Information Value Date Recorded Sex Assigned at Not on file Legal Sex Male 9:32 AM EDT Gender Identity Not on file Sexual Orientation Not on file COVID-19 Exposure Response Date Recorded In the last month, have you been in contact with someone who was confirmed or suspected to have Coronavirus / COVID-19? No / Unsure 04/10/2021 5:13 PM EST documented as of this encounter Plan of Treatment Not on file documented as of this encounter Visit Diagnoses Not on filedocumented in this encounter Care Teams Capital Project Engineer Relationship Specialty Start Date End Date Hossein Marion MD PCP - General Internal Medicine 04/07/21 documented as of this encounter
--- OUTSIDE RECORDS SUMMARY | 2024-04-02 12:04 | XMS_ITS | Clinical Summary ---
Author Organization [facility] [employer] [facility] Address [address] [place] [address] Phone Support Name Relationship Address Phone Mike Hammer Brother [address] [place] [address] Kareen Hammer Extended family member Unknown + Care Team Providers Care Material Processor Name Role Phone Mike Watson Primary Care Provider [phone] Allergies Active Allergy Reactions Criticality Noted Date Comments Baclofen Low 09/21/2021 Other Reaction(s): RASH, BLISTERING nightmares Codeine Nausea And Vomiting High 10/18/2018 Fluconazole Other Low 12/22/2020 Other Reaction(s): RASH, BLISTERING blisters Gluten GI intolerance 08/14/2022 Oxycodone Nausea And Vomiting 04/21/2020 Oxycodone-Acetaminophe n Nausea And Vomiting 05/28/2013 Tizanidine Nausea And Vomiting Low 10/29/2020 Other Reaction(s): NAUSEA & VOMITING/ RASH, BLISTERING Medications omeprazole (PriLOSEC) [address] capsule TAKE ONE CAPSULE BY MOUTH EVERY DAY 90 capsule 1 4 Active acetaminophen (TYLENOL) 500 mg tablet Take 1 tablet (500 mg total) by mouth every 6 (six) hours if needed. 3 Active albuterol HFA (PROAIR HFA ; PROVENTIL HFA ; VENTOLIN HFA) 90 mcg/actuation inhaler Inhale 2 puffs by mouth every 6 (six) hours if needed. Active albuterol 2.5 mg /3 mL (0.083 %) nebulizer solution 3 mL (2.5 mg total). 1 Active aspirin 81 mg EC tablet Take 1 tablet (81 mg total) by mouth 1 (one) time each day. 3 Active azaTHIOprine (IMURAN) 100 mg tablet Take 2 tablets (200 mg total) by mouth 1 (one) time each day. Active calcium carbonate-vitami n D3 600 mg-20 mcg (800 unit) tablet Take by mouth 1 (one) time each day. Active cyclobenzaprine (FLEXERIL) 10 mg tablet TAKE ONE TABLET BY MOUTH AT BEDTIME AND 1 TABLET IN THE MORNING NEEDED Active DILT-XR 120 mg 24 hr capsule Take 1 capsule (120 mg total) by mouth 1 (one) time each day. 4 Active fluticasone propionate (FLONASE) 50 mcg/actuation nasal spray Administer into affected nostril(s). 4 Active Golimumab (Simponi ARIA) 12.5 mg/mL solution injection Infuse into a venous catheter. 4 Active isosorbide mononitrate (IMDUR) 60 mg 24 hr tablet Take 1 tablet (60 mg total) by mouth 1 (one) time each day. 4 Active lidocaine (LIDODERM) 5 % patch APPLY ONE PATCH EXTERNAL DAILY TO BACK NEEDED Active ondansetron (ZOFRAN) 8 mg tablet Take 1 tablet (8 mg total) by mouth every 8 (eight) hours if needed. 4 Active pregabalin (LYRICA) 75 mg capsule Take 1 capsule (75 mg total) by mouth 2 (two) times a day. 4 Active cetirizine (ZyrTEC) 10 mg tablet TAKE ONE TABLET BY MOUTH EVERY DAY 90 tablet 1 4 Active diclofenac (VOLTAREN) 1 % topical gel APPLY 4 GRAMS TOPICALLY 4 TIMES A DAY NEEDED FOR OTHER (ARTHRITIS PAIN). 100 g 3 4 Active atorvastatin (LIPITOR) 20 mg tablet Take 1 tablet (20 mg total) by mouth 1 (one) time each day. 90 tablet 3 4 Active sulfamethoxazole -trimethoprim (BACTRIM,SEPTRA) 400-80 mg per tablet Take 1 tablet by mouth 1 (one) time each day. Active folic acid (FOLVITE) 1 mg tablet Take 1 tablet (1 mg total) by mouth 1 (one) time each day. 30 each 11 5 03/24/19 26 Active Active Problems Problem Noted Date Diagnosed Date Folic acid deficiency 03/24/2024 Neurostimulator device in situ 10/12/2023 Carotid artery stenosis 08/21/2023 Overview (12/24/2023): Last Assessment & Plan: Patient underwent bilateral carotid artery ultrasound August 2023 which showed less than 50% stenosis in the ICAs bilaterally. He continues on aspirin and statin. Assessment & Plan (01/31/2024 11:40 AM EST): Patient underwent bilateral carotid artery ultrasound August 2023 which showed less than 50% stenosis in the ICAs bilaterally. He continues on aspirin and statin. Aneurysm of ascending aorta 12/07/2022 Overview (12/24/2023): Last Assessment & Plan: The patient has a history of mild dilation of ascending aorta. Chest CT in the past did not describe any thoracic aortic aneurysm. Echocardiogram January 2023 showed mild ascending aorta dilation at 4.[address] scan October 2023 showed sinus of Valsalva measuring 4.1 cm. We discussed that we will continue to monitor on an annual basis to evaluate for progression. He was counseled regarding the importance of avoiding lifting any objects weighing more than 35 pounds in order to reduce the risk of suffering an acute aortic syndrome such as aortic dissection. He does not participate in any contact sports. Assessment & Plan (01/31/2024 11:40 AM EST): The patient has a history of mild dilation of ascending aorta. Chest CT in the past did not describe any thoracic aortic aneurysm. Echocardiogram January 2023 showed mild ascending aorta dilation at 4.[address] scan October 2023 showed sinus of Valsalva measuring 4.1 cm. We discussed that we will continue to monitor on an annual basis to evaluate for progression. He was counseled regarding the importance of avoiding lifting any objects weighing more than 35 pounds in order to reduce the risk of suffering an acute aortic syndrome such as aortic dissection. He does not participate in any contact sports. Hyponatremia 12/02/2021 ILD (interstitial lung disease) 01/31/2021 Overview (12/24/2023): Follows with [facility] Pulm Evaluated by [facility] pulmonology who recommended referral to [facility] CAD (coronary artery disease) 10/29/2020 Overview (12/24/2023): Last Assessment & Plan: The patient has a history of coronary artery disease. In the past, in 2012 he did undergo a left heart catheterization which showed mild luminal regularities. Given his symptoms, he underwent a cardiac CT scan recently October 2023 which showed left main with no significant plaque or stenosis. Mild to moderate predominantly calcified plaque burden in the LAD with multifocal 25 to 50% stenosis. CT FFR analysis showed FFR of the LAD in normal range. Left circumflex causing 25 to 40% stenosis in CT FFR was in normal range. RCA was scattered small calcified plaques with no significant stenosis. We discussed these results in depth today. Given that he continues to experience an occasional chest discomfort during exertional activity like walking up the stairs, recommend he increase isosorbide mononitrate to 60 mg orally daily. He does report some improvement in his symptoms since starting isosorbide at his last office visit. We discussed that if his symptoms continue, we will need to consider repeat left heart catheterization to reassess his coronary anatomy as a cause of his symptoms. In the meantime, he will continue his current dose of atorvastatin, diltiazem and aspirin. He will increase isosorbide mononitrate as explained. Patient advised to seek emergency medical attention by calling 911 if they were to develop severe dyspnea, chest pain that did not resolve with rest or nitroglycerin, or if they were to faint. Assessment & Plan (01/31/2024 11:40 AM EST): Patient has a history of coronary artery disease. He underwent a left heart catheterization in the past in 2012 which showed mild luminal irregularities. He has been having symptoms of chest discomfort and underwent a cardiac CT scan in October 2023 as outlined above which showed mild to moderate coronary artery disease. He continues with antianginal therapy with isosorbide mononitrate and we have titrated this to 60 mg orally daily. He is also on diltiazem, aspirin and statin. He does report some improvement of his atypical symptoms of chest discomfort, however continues to report worsening chest discomfort with exertional activities. We discussed that his symptoms could be worsened due to worsening of his lung disease, however would need to rule out obstructive coronary artery disease as a cause of his symptoms. Therefore, we discussed that the next step in his management would be for him to undergo a left heart catheterization. Risks and benefits of coronary angiogram discussed with patient including the increased risk for bleeding and the less than 0.1% risk for MA, stroke or . The patient understands and wishes to proceed with coronary angiogram. All questions answered. Patient advised to refrain from exertional activites and to seek emergency medical attention if he develops chest pain or dyspnea which does not resolve with rest or sublingual nitroglycerin. Orders: ECG 12 lead Basic metabolic panel; Future Prothrombin time with INR; Future CBC and differential; Future Hydronephrosis 10/29/2020 Ankylosing spondylitis 2018 Overview (12/24/2023): Following with arthritis treatment center S/p lumbar zygapophyseal joint injection 04/01/21 Neurogenic thoracic outlet syndrome 07/23/2014 HTN (hypertension) 11/11/2013 Overview (12/24/2023): Last Assessment & Plan: Patient's blood pressure is acceptable today. He will continue his current antihypertensive medication regimen as prescribed. Will increase isosorbide mononitrate swelling below. Assessment & Plan (01/31/2024 11:40 AM EST): Blood pressure acceptable today. He will continue his current antihypertensive medication regimen as prescribed. Fatty liver 2013 Eosinophilic esophagitis 11/12/2012 Overview (12/24/2023): Upper GI endoscopy and biopsy 11/11/2012. Hypercholesterolemia 03/05/2009 Overview (12/24/2023): Last Assessment & Plan: Patient has history of hyperlipidemia as well as history of coronary artery disease. Last fasting lipid panel September 2023 showed an LDL cholesterol of 70 and at goal. He will continue his current dose of atorvastatin as prescribed. I have reviewed with the patient the importance of a heart healthy lifestyle which includes eating a low-fat low-salt diet, getting regular exercise, maintaining a healthy weight, not smoking, and following up with routine medical care. Assessment & Plan (01/31/2024 11:40 AM EST): Patient has history of hyperlipidemia as well as history of coronary artery disease. Last fasting lipid panel September 2023 showed an LDL cholesterol of 70 and at goal. He will continue his current dose of atorvastatin as prescribed. I have reviewed with the patient the importance of a heart healthy lifestyle which includes eating a low-fat low-salt diet, getting regular exercise, maintaining a healthy weight, not smoking, and following up with routine medical care. Nephrolithiasis 03/05/2009 Overview (12/24/2023): Lithotripsy 2013, obstructing right ureteral stone Resolved Problems Problem Noted Date Diagnosed Date Resolved Date Palpitation 09/21/2021 01/31/2024 Overview (12/24/2023): Last Assessment & Plan: Patient states that he still continues to perceive palpitations. These are not bothersome and have been unchanged over the past year. Educated on the importance of abstaining from excessive caffeine or alcohol intake. Chest wall pain 04/07/2021 01/31/2024 Dizziness 03/24/2021 01/31/2024 Overview (12/24/2023): Last Assessment & Plan: We did discuss his dizziness. It seems that most of his orthostatic type dizziness has improved. We did place him on midodrine and this seems to help. He is now having elevated blood pressures so he is off his midodrine. We did discuss starting him on diltiazem 120 mg once a day to help with his blood pressure as well as his palpitations. He will let us know if his dizziness worsens. Dyspnea 12/22/2020 01/31/2024 Overview (12/24/2023): Last Assessment & Plan: Patient continues to endorse ongoing dyspnea on exertion. He states this has gotten slightly worse over the past year. We discussed his normal stress testing 2 years ago. He would like to update this to rule out ischemia as his brothers have recently been diagnosed with significant coronary artery disease. I have ordered a nuclear stress test to rule out ischemia as an etiology for the patient's ongoing dyspnea on exertion. Chest pain syndrome 08/30/2012 01/31/20 24 Overview (12/24/2023): S/p cath August 12 2012- LM, LAD, LCX and RCA mild luminal irreg Last Assessment & Plan: We did discuss his chest pain. This appears to be musculoskeletal in etiology. He did have a stress test done in December. This was normal. We will continue to monitor. If he has worsening chest pain with exertion or other symptoms that we reviewed that would be suggestive of ischemia he will let us know. We did discuss that stress testing is not 100%. And he should let us know if his symptoms worsen. Encounters Date Type Department Care Team Description 02/01/2024 Telephone [facility] Cardiology [facility] [address] [place] [address] Brent Cuellar MD hospital procedure (Cardiac cath) 01/31/2024 11:10 AM EST Office Visit [facility] Cardiology [facility] [address] [place] [address] Mey Irwin NP Coronary artery disease, unspecified vessel or lesion type, unspecified whether angina present, unspecified whether [place] or transplanted heart (Primary Dx); Aneurysm of ascending aorta without rupture (CMS/HCC); Primary hypertension; Hypercholesterolemia; Bilateral carotid artery stenosis 01/31/2024 Telephone [facility] [address] [place] [address] Mey Irwin NP from Last 3 Months Immunizations Name Administration Dates Next Due H1N1 Inj Preservative Free 03/05/2009 Influenza Quadravalent, MDCK , 0.5ml, preservative free (Flucelvax) 6mo and older 12/02/2021,01/21/2018 Influenza Quadravalent, MDCK , 0.5ml, with preservative (Flucelvax) 6mo and older 10/21/2019 Influenza Quadrivalent, 0.5m l, preservative free (Fluarix; FluLaval; Fluzone) ages 6mo and older (Afluria) 3yo and older 11/12/2018 Influenza trivalent, 0.5mL, preservative free (Fluarix; FluLaval; Fluzone) ages 6mo and older (Afluria) 3 years and older 02/11/2015,10/29/2012,03/05/2009 Pfizer (ages 12 & older) Bivalent, COVID-19 1010/2021 Pneumococcal polysaccharide 23 valent (Pneumovax 23) 2yo and older 12/02/2021 Td Tetanus diptheria (Tdvax) 7yo and older 12/02 Tdap Tetanus diptheria acell ular pertussis (Boostrix; Adacel) 7yo and older 03/05/2009 Zoster recombinant (Shingrix ) 19yo and older 07/19/2021,05/13/2021 Surgical History Surgery Date Site/Laterality Comments OTHER SURGICAL HISTORY 09/12/2013 PROCEDURE: [place] PYELOTOMY WITH REMOVAL CALCULUS; COMMENT: cystoscopic Dr. Garcia ESOPHAGOGASTRODUODENOSCOPY 02/13/2012 PROCEDURE: [place] EGD TRANSORAL BIOPSY SINGLE/MULTIPLE; COMMENT: furrows in the esophagus, bx: Eosinophilic esophagitis COLONOSCOPY 05/26/2020 N/A PROCEDURE: HISTORICAL COLONOSCOPY; COMMENT: Diminutive colonic polyps x2: Hyperplastic x1, SSA x1. Medical History Medical History Date Comments Chest pain syndrome 08/30/2012 DX:Chest nelida n syndrome; COMMENT: S/p cath August 12 2012- LM, LAD, LCX and RCA mild luminal irreg Eosinophilic esophagitis 11/12/2012 DX:Eosi nophilic esophagitis; COMMENT: Upper GI endoscopy and biopsy 11/11/2012. Fatty liver 2013 DX:Fatty liver Kidney stones 03/05/2009 DX:Kidney stones ; COMMENT: Lithotripsy 2013, obstructing right ureteral stone Neurogenic thoracic outlet syndrome 07/23/2014 DX:Neurogenic thoracic outlet syndrome HTN (hypertension) 11/11/2013 DX:HTN (hyper tension) Hypercholesterolemia 03/05/2009 DX:Hypercho lesterolemia Family History Medical History Relation Name Comments No Known Problems Brother 1 Heart attack Brother 2 Heart attack Brother 3 Heart attack Father Heart attack Maternal Grandfather Diabetes Mother Hyperlipidemia Mother Hypertension Mother Heart attack Paternal Grandfather Relation Name Status Comments Brother 1 Alive Brother 2 Alive Brother 3 Alive Father Maternal Grandfather Mother Alive Paternal Grandfather Social History Tobacco Use Types Packs/Day Years Used Date Smoking Tobacco: Never Smokeless Tobacco: Never Alcohol Use Standard Drinks/Week Comments No 0 (1 standard drink = 0.6 oz pur e alcohol) Sex and Gender Information Value Date Recorded Sex Assigned at Not on file Legal Sex Male 4:32 PM EST Gender Identity Not on file Sexual Orientation Not on file Obstetrics History Last Filed Vital Signs Vital Sign Reading Time Taken Comments Blood Pressure 130/70 01/31/2024 10:54 AM EST Pulse 67 01/31/2024 10:54 AM EST Temperature - - Respiratory Rate - - Oxygen Saturation 99% 01/31/2024 10:54 AM EST Inhaled Oxygen Concentration - - Weight 96 kg (211 lb 9.6 oz) 01/31/2024 10:54 AM EST Height 188 cm (6' 2 ) 01/31/2024 10:54 AM EST Body Mass Index 27.17 01/31/2024 10:54 AM EST Plan of Treatment Upcoming Encounters Date Type Department Care Team (Late st Contact Info) Description 04/14/2024 8:30 AM EST Office Visit Adult Medicine [facility] [address] [place] [address] Mike Watson PA [address] [place] [address] Health Maintenance Due Date Last Done Comments Hepatitis A Vaccines (1 of 2 - Risk 2-dose series) 10/21/1979 Hepatitis B Vaccines (1 of 3 - Risk 3-dose series) 2020 RSV Immunization Patients 60+ Years Old (1 - Risk 60-74 years 1-dose series) 2020 Depression Screening 01/21/2022 HIV Screening 01/21/2022 Social Influencers of Health Screening 01/21/2022 Pneumococcal Vaccine: 50+ Years (2 of 2 - PCV) 12/02/2022 12/02/2021 Pneumococcal Vaccine: Pediatrics (0 to 5 Years) and At-Risk Patients (6 to 64 Years) (2 of 2 - PCV) 12/02/2022 12/02/2021 Hypertension/CHF/CAD Annual BMP Blood Test 03/21/2025 03/21/2024, 03/14/2024, 10/12/2023, Additional history exists Colorectal Cancer Screening: Colonoscopy 05/26/2025 05/26/2020 Cholesterol Screening (Lipid Panel) 10/11/2028 10/12/2023, 10/12/2023 DTaP,Tdap,and Td Vaccines (3 - Td or Tdap) 12/03/2031 12/02/2021, 03/05/2009 Zoster Vaccines Completed 07/19/2021, 05/13/2021 COVID-19 Vaccine Completed 10/24/2023, 05/2022, 11/20/2021, Additional history exists Influenza Vaccine Completed 10/24/2023, , 10/21/2019, Additional history exists Hepatitis C Screening Completed 03/14/2024, 023 HIB Vaccines Aged Out No longer eligi ble based on patient's age to complete this topic HPV Vaccines Aged Out No longer eligi ble based on patient's age to complete this topic IPV Vaccines Aged Out No longer eligi ble based on patient's age to complete this topic MMR Vaccines Aged Out No longer eligi ble based on patient's age to complete this topic Meningococcal ACWY Vaccine Aged Out N o longer eligible based on patient's age to complete this topic Meningococcal B Vacine Aged Out No lo nger eligible based on patient's age to complete this topic RSV Immunization Patients Under 20 months Aged Out No longer eligible based on patient's age to complete this topic Varicella Vaccines Aged Out No longer eligible based on patient's age to complete this topic Procedures Procedure Name Priority Date/Time Associated Diagnosis Comments CBC WITH AUTO DIFFERENTIAL Routine 03/21/2024 10:00 AM EST Elevated LFTs Anemia, unspecified type GAMMA GLUTAMYL TRANSFERASE Routine 03/21/2024 10:00 AM EST Elevated LFTs Anemia, unspecified type COMPREHENSIVE METABOLIC PANEL Routine 03/21/2024 10:00 AM EST Elevated LFTs Anemia, unspecified type FOLATE Routine 03/21/2024 10:00 AM EST Elevated LFTs Anemia, unspecified type VITAMIN B12 Routine 03/21/2024 10:00 AM EST Elevated LFTs Anemia, unspecified type FERRITIN Routine 03/21/2024 10:00 AM EST Elevated LFTs Anemia, unspecified type IRON AND TIBC Routine 03/21/2024 10:00 AM EST Elevated LFTs Anemia, unspecified type CBC AND DIFFERENTIAL Routine 03/21/2024 10:00 AM EST Elevated LFTs Anemia, unspecified type CBC WITH AUTO DIFFERENTIAL Routine 03/14/2024 8:14 AM EST Elevated LFTs GAMMA GLUTAMYL TRANSFERASE Routine 03/14/2024 8:14 AM EST Elevated LFTs IRON AND TIBC Routine 03/14/2024 8:14 AM EST Elevated LFTs CBC AND DIFFERENTIAL Routine 03/14/2024 8:14 AM EST Elevated LFTs BASIC METABOLIC PANEL Routine 03/14/2024 8:14 AM EST Elevated LFTs HEPATITIS C ANTIBODY Routine 03/14/2024 8:14 AM EST Elevated LFTs HEPATITIS A ANTIBODY TOTAL WITH REFLEX IGM Routine 03/14/2024 8:14 AM EST Elevated LFTs HEPATITIS B CORE ANTIBODY, TOTAL Routine 03/14/2024 8:14 AM EST Elevated LFTs HEPATITIS B SURFACE ANTIGEN WITH CONFIRMATION Routine 03/14/2024 8:14 AM EST Elevated LFTs HEPATITIS B SURFACE ANTIBODY Routine 03/14/2024 8:14 AM EST Elevated LFTs HEPATIC FUNCTION PANEL Routine 03/14/2024 8:14 AM EST Elevated LFTs ECG 12-LEAD Routine 01/31/2024 11:34 AM EST Coronary artery disease, unspecified vessel or lesion type, unspecified whether angina present, unspecified whether [place] or transplanted heart EXTERNAL CT REPORT 01/29/2024 LIPID PANEL Routine 10/12/2023 HM COLONOSCOPY Routine 05/26/2020 from Last 3 Months or Most Recently Relevant to Health Maintenance Results * (ABNORMAL) CBC auto differential (03/21/2024 10:00 AM EST) Only the most recent of2 resultswithin the time period is included. WBC 5.4 4.8 - 10.8 K/mcL LAB HEMETOLOGY METHOD 03/21/2024 1:54 PM [facility] RBC 3.50(L) 4.50 - 5.50 M/mcL LAB HEMETOLOGY METHOD 03/21/2024 1:54 PM [facility] Hemoglobin 12.8(L) 13.5 - 17.5 g/dL LAB HEMETOLOGY METHOD 03/21/2024 1:54 PM [facility] Hematocrit 39.4(L) 42.0 - 54.0 % LAB HEMETOLOGY METHOD 03/21/2024 1:54 PM [facility] MCV 112.6(H) 79.0 - 98.0 FL LAB HEMETOLOGY METHOD 03/21/2024 1:54 PM [facility] MCH 36.6(H) 27.0 - 32.0 pcg LAB HEMETOLOGY METHOD 03/21/2024 1:54 PM [facility] MCHC 32.5 32.0 - 37.0 g/dL LAB HEMETOLOGY METHOD 03/21/2024 1:54 PM [facility] RDW 12.8 11.0 - 15.0 % LAB HEMETOLOGY METHOD 03/21/2024 1:54 PM [facility] Platelets 215 130 - 400 K/mcL LAB HEMETOLOGY METHOD 03/21/2024 1:54 PM [facility] MPV 9.4 7.0 - 11.0 FL LAB HEMETOLOGY METHOD 03/21/2024 1:54 PM [facility] NRBC 0.0 <1.0 % LAB HEMETOLOGY METHOD 03/21/2024 1:54 PM [facility] NRBC Absolute 0.00 <0.10 K/mcL LAB HEMETOLOGY METHOD 03/21/2024 1:54 PM [facility] Neutrophils Relative 62.8 % LAB HEMETOLOGY METHOD 03/21/2024 1:54 PM [facility] Lymphocytes Relative 18.6 % LAB HEMETOLOGY METHOD 03/21/2024 1:54 PM [facility] Monocytes Relative 13.8 % LAB HEMETOLOGY METHOD 03/21/2024 1:54 PM [facility] Eosinophils Relative 1.7 % LAB HEMETOLOGY METHOD 03/21/2024 1:54 PM [facility] Basophils Relative 1.1 % LAB HEMETOLOGY METHOD 03/21/2024 1:54 PM [facility] Immature Granulocytes Relative 2.0 % LAB HEMETOLOGY METHOD 03/21/2024 1:54 PM [facility] Neutrophils Absolute 3.38 1.50 - 7.00 K/mcL LAB HEMETOLOGY METHOD 03/21/2024 1:54 PM [facility] Lymphocytes Absolute 1.00 1.00 - 5.00 K/mcL LAB HEMETOLOGY METHOD 03/21/2024 1:54 PM [facility] Monocytes Absolute 0.74 0.20 - 1.00 K/mcL LAB HEMETOLOGY METHOD 03/21/2024 1:54 PM EST [facility] Eosinophils Absolute 0.09 0.00 - 0.50 K/mcL LAB HEMETOLOGY METHOD 03/21/2024 1:54 PM EST [facility] Basophils Absolute 0.06 0.00 - 0.20 K/mcL LAB HEMETOLOGY METHOD 03/21/2024 1:54 PM EST [facility] Immature Granulocytes Absolute 0.11(H) 0.00 - 0.03 K/mcL LAB HEMETOLOGY METHOD 03/21/2024 1:54 PM EST [facility] Blood Venous blood specimen / Unknown Venipuncture / Unknown 03/21/2024 10:00 AM EST 03/21/2024 10:00 AM EST Mike OLSEN LAB BLOOD ORDERABLES Erma l Result [facility] [address] [place] [address], [place] [phone] * Iron and TIBC (03/21/2024 10:00 AM EST) Only the most recent of2 resultswithin the time period is included. Iron 86 50 - 160 mcg/dL LAB CHEMISTRY METHOD 03/21/2024 2:08 PM EST [facility] TIBC 342 250 - 450 mcg/dL LAB CHEMISTRY METHOD 03/21/2024 2:08 PM EST [facility] Iron Saturation 25 20 - 50 % LAB CHEMISTRY METHOD 03/21/2024 2:08 PM EST [facility] Blood Venous blood specimen / Unknown Venipuncture / Unknown 03/21/2024 10:00 AM EST 03/21/2024 10:00 AM EST Mike OLSEN LAB BLOOD ORDERABLES Erma l Result [facility] [address] [place] [address], [place] [phone] * GGT (03/21/2024 10:00 AM EST) Only the most recent of2 resultswithin the time period is included. Pathologist [facility] GGT 42 7 - 64 unit/L LAB CHEMISTRY METHOD 03/21/2024 2:08 PM EST [facility] Blood Venous blood specimen / Unknown Venipuncture / Unknown 03/21/2024 10:00 AM EST 03/21/2024 10:00 AM EST Mike OLSEN LAB BLOOD ORDERABLES Erma l Result [facility] [address] [place] [address], [place] [phone] * (ABNORMAL) Folate (03/21/2024 10:00 AM EST) [facility] Folate 1.6(L) 2.8 - 17.0 ng/ml LAB CHEMISTRY METHOD 03/21/2024 2:31 PM EST [facility] Blood Venous blood specimen / Unknown Venipuncture / Unknown 03/21/2024 10:00 AM EST 03/21/2024 10:00 AM EST Mike OLSEN LAB BLOOD ORDERABLES Erma l Result [facility] [address] [place] [address], [place] [phone] * Ferritin (03/21/2024 10:00 AM EST) Pathologist [facility] Ferritin 49 26 - 388 ng/mL LAB CHEMISTRY METHOD 03/21/2024 2:31 PM EST [facility] Blood Venous blood specimen / Unknown Venipuncture / Unknown 03/21/2024 10:00 AM EST 03/21/2024 10:00 AM EST Mike OLSEN LAB BLOOD ORDERABLES Erma l Result [facility] [address] [place] [address], [place] [phone] * Vitamin B12 (03/21/2024 10:00 AM EST) Pathologist [facility] Vitamin B-12 383 250 - 900 pcg/mL LAB CHEMISTRY METHOD 03/21/2024 2:31 PM [facility] Blood Venous blood specimen / Unknown Venipuncture / Unknown 03/21/2024 10:00 AM EST 03/21/2024 10:00 AM EST Mike OLSEN LAB BLOOD ORDERABLES Erma l Result Performing Organization Address City/[facility]/ZIP Co de Phone Number [facility] [address] [place] [address], [place] [phone] * (ABNORMAL) Comprehensive metabolic panel (03/21/2024 10:00 AM EST) [facility] Sodium 137 133 - 145 mmol/L LAB CHEMISTRY METHOD 03/21/2024 2:08 PM [facility] Potassium 4.1 3.5 - 5.5 mmol/L LAB CHEMISTRY METHOD 03/21/2024 2:08 PM [facility] Chloride 103 96 - 110 mmol/L LAB CHEMISTRY METHOD 03/21/2024 2:08 PM [facility] CO2 30 21 - 32 mmol/L LAB CHEMISTRY METHOD 03/21/2024 2:08 PM [facility] Anion Gap 4 3 - 11 LAB CHEMISTRY METHOD 03/21/2024 2:08 PM [facility] Glucose 86 70 - 100 mg/dL LAB CHEMISTRY METHOD 03/21/2024 2:08 PM [facility] BUN 15 5 - 25 mg/dL LAB CHEMISTRY METHOD 03/21/2024 2:08 PM [facility] Creatinine 0.62(L) 0.70 - 1.30 mg/dL LAB CHEMISTRY METHOD 03/21/2024 2:08 PM [facility] eGFR 107 >=60 mL/min/1. 73m2 LAB CHEMISTRY METHOD 03/21/2024 2:08 PM [facility] Comment:Calculation based on the??Chronic Kidney Disease Epidemiology Collaboration (CKD-EPI) equation refit??without adjustment for race. BUN/Creatinine Ratio 24.2 LAB CHEMISTRY METHOD 03/21/2024 2:08 PM [facility] Calcium 8.5 8.5 - 10.5 mg/dL LAB CHEMISTRY METHOD 03/21/2024 2:08 PM [facility] AST (SGOT) 65(H) 10 - 42 unit/L LAB CHEMISTRY METHOD 03/21/2024 2:08 PM [facility] ALT (SGPT) 153(H) 10 - 60 unit/L LAB CHEMISTRY METHOD 03/21/2024 2:08 PM [facility] Alkaline Phosphatase 55 42 - 121 unit/L LAB CHEMISTRY METHOD 03/21/2024 2:08 PM [facility] Total Protein 5.6(L) 6.0 - 8.0 g/dL LAB CHEMISTRY METHOD 03/21/2024 2:08 PM [facility] Albumin 3.3 3.2 - 5.0 g/dL LAB CHEMISTRY METHOD 03/21/2024 2:08 PM [facility] Total Bilirubin 0.9 0.0 - 1.4 mg/dL LAB CHEMISTRY METHOD 03/21/2024 2:08 PM [facility] Blood Venous blood specimen / Unknown Venipuncture / Unknown 03/21/2024 10:00 AM EST 03/21/2024 10:00 AM EST Mike OLSEN LAB BLOOD ORDERABLES Erma l Result Performing Organization Address [facility] Co de Phone Number [facility] [address] [place] [address], [place] [phone] * Hepatitis C antibody (03/14/2024 8:14 AM EST) [facility] Hepatitis C Antibody Negative Negative LAB CHEMISTRY METHOD 03/14/2024 11:44 AM EST [facility] Blood Venous blood specimen / Unknown Venipuncture / Unknown 03/14/2024 8:14 AM EST 03/14/2024 8:14 AM EST Mkie OLSEN LAB BLOOD ORDERABLES Erma l Result Performing Organization Address [facility] de Phone Number [facility] [address] [place] [address], [place] [phone] * Hepatitis B surface antigen with reflex to confirmation (03/14/2024 8:14 AM EST) [facility] Hepatitis B Surface Ag Negative Negative LAB CHEMISTRY METHOD 03/14/2024 11:17 AM EST [facility] Blood Venous blood specimen / Unknown Venipuncture / Unknown 03/14/2024 8:14 AM EST 03/14/2024 8:14 AM EST Narrative [facility] - 03/14/2024 11:17 AM EST Over the counter supplements containing high doses of biotin may interfere with this assay. ??If interference is suspected, patients shoud be retested after refraining from biotin supplements for 72 hours. us Mike OLSEN LAB BLOOD ORDERABLES Erma l Result Performing Organization Address [facility] Co de Phone Number [facility] [address] [place] [address], [place] [phone] * Hepatitis A antibody total with reflex IgM (03/14/2024 8:14 AM EST) Hep A Total Ab Negative Negative LAB CHEMISTRY METHOD 03/14/2024 11:45 AM EST [facility] Blood Venous blood specimen / Unknown Venipuncture / Unknown 03/14/2024 8:14 AM EST 03/14/2024 8:14 AM EST Narrative [facility] - 03/14/2024 11:45 AM EST Over the counter supplements containing high doses of biotin may interfere with this assay. ??If interference is suspected, patients shoud be retested after refraining from biotin supplements for 72 hours. Mike OLSEN LAB BLOOD ORDERABLES Erma l Result Performing Organization Address City/[facility]/ZIP Co de Phone Number [facility] [address] [place] [address], [place] [phone] * Hepatitis B core antibody, total (03/14/2024 8:14 AM EST) Hep B Core Total Ab Negative Negative LAB CHEMISTRY METHOD 03/14/2024 11:45 AM EST [facility] Blood Venous blood specimen / Unknown Venipuncture / Unknown 03/14/2024 8:14 AM EST 03/14/2024 8:14 AM EST Mike OLSEN LAB BLOOD ORDERABLES Erma l Result [facility] [address] [place] [address], [place] [phone] * Hepatitis B surface antibody (03/14/2024 8:14 AM EST) Hepatitis B Surface Ab Negative Negative LAB CHEMISTRY METHOD 03/14/2024 11:06 AM EST [facility] Hepatitis B Surface Ab Quantitative <3.1 mIU/mL LAB CHEMISTRY METHOD 03/14/2024 11:06 AM EST [facility] Blood Venous blood specimen / Unknown Venipuncture / Unknown 03/14/2024 8:14 AM EST 03/14/2024 8:[address] [facility] - 03/14/2024 11:06 AM EST >=10 mIU/mL is considered to be consistent with immunity. us Mike OLSEN LAB BLOOD ORDERABLES Erma l Result [facility] [address] [place] [address], * (ABNORMAL) Hepatic function panel (03/14/2024 8:14 AM EST) Total Protein 5.7(L) 6.0 - 8.0 g/dL LAB CHEMISTRY METHOD 03/14/2024 10:28 AM [facility] Albumin 3.3 3.2 - 5.0 g/dL LAB CHEMISTRY METHOD 03/14/2024 10:28 AM [facility] Total Bilirubin 1.2 0.0 - 1.4 mg/dL LAB CHEMISTRY METHOD 03/14/2024 10:28 AM [facility] Bilirubin, Direct 0.3 0.0 - 0.3 mg/dL LAB CHEMISTRY METHOD 03/14/2024 10:28 AM [facility] Bilirubin, Indirect 0.9 0.0 - 1.1 mg/dL LAB CHEMISTRY METHOD 03/14/2024 10:28 AM [facility] ALT (SGPT) 168(H) 10 - 60 unit/L LAB CHEMISTRY METHOD 03/14/2024 10:28 AM [facility] AST (SGOT) 67(H) 10 - 42 unit/L LAB CHEMISTRY METHOD 03/14/2024 10:28 AM [facility] Alkaline Phosphatase 57 42 - 121 unit/L LAB CHEMISTRY METHOD 03/14/2024 10:28 AM [facility] Blood Venous blood specimen / Unknown Venipuncture / Unknown 03/14/2024 8:14 AM EST 03/14/2024 8:14 AM EST Mike OLSEN LAB BLOOD ORDERABLES Erma brown Result [facility] [address] [place] [address], [place] [phone] * (ABNORMAL) Basic metabolic panel (03/14/2024 8:14 AM EST) Sodium 140 133 - 145 mmol/L LAB CHEMISTRY METHOD 03/14/2024 10:28 AM [facility] Potassium 4.2 3.5 - 5.5 mmol/L LAB CHEMISTRY METHOD 03/14/2024 10:28 AM [facility] Chloride 108 96 - 110 mmol/L LAB CHEMISTRY METHOD 03/14/2024 10:28 AM [facility] CO2 28 21 - 32 mmol/L LAB CHEMISTRY METHOD 03/14/2024 10:28 AM [facility] Anion Gap 4 3 - 11 LAB CHEMISTRY METHOD 03/14/2024 10:28 AM [facility] Glucose 96 70 - 100 mg/dL LAB CHEMISTRY METHOD 03/14/2024 10:28 AM [facility] BUN 13 5 - 25 mg/dL LAB CHEMISTRY METHOD 03/14/2024 10:28 AM [facility] Creatinine 0.57(L) 0.70 - 1.30 mg/dL LAB CHEMISTRY METHOD 03/14/2024 10:28 AM [facility] eGFR 110 >=60 mL/min/1. 73m2 LAB CHEMISTRY METHOD 03/14/2024 10:28 AM [facility] Comment:Calculation based on the??Chronic Kidney Disease Epidemiology Collaboration (CKD-EPI) equation refit??without adjustment for race. BUN/Creatinine Ratio 22.8 LAB CHEMISTRY METHOD 03/14/2024 10:28 AM [facility] Calcium 8.9 8.5 - 10.5 mg/dL LAB CHEMISTRY METHOD 03/14/2024 10:28 AM EST [facility] Blood Venous blood specimen / Unknown Venipuncture / Unknown 03/14/2024 8:14 AM EST 03/14/2024 8:14 AM EST Mike OLSEN LAB BLOOD ORDERABLES Erma l Result Performing Organization Address City/[facility]/ZIP Co de Phone Number [facility] [address] [place] [address], [place] [phone] * ECG 12 lead (01/31/2024 11:34 AM EST) Ventricular Rate ECG 67 BPM GEMUSE Atrial Rate 67 BPM GEMUSE P-R Interval 156 ms GEMUSE QRS Duration 82 ms GEMUSE Q-T Interval 390 ms GEMUSE QTc 412 ms GEMUSE P Wave [place] 62 degrees GEMUSE R [place] 66 degrees GEMUSE T [place] 59 degrees GEMUSE ECG Interpretation Normal sinus rhythm Normal ECG When compared with ECG of 14-AUG-2022 06:49, No significant change was found Confirmed by JOAQUÍN BILLS ([id number]) on 02/01/2024 4:41:44 PM GEMUSE 01/31/2024 11:0 9 AM EST 02/01/2024 4:41 PM EST Mey Irwin STUD [employer]EP F[employer]ER ECG ORDERABLES Edited Resu lt - Final Performing Organization Address City/[facility]/ZIP Co de Phone Number GEMUSE * External CT Report (01/29/2024) Anatomical Region Laterality Modality Computed Tomogra phy Provider [facility] CT PROCEDURES Final Result * Lipid panel (10/12/2023) LDL/HDL Ratio 2 0 - 4 Triglycerides 51 0 - 150 mg/dL Cholesterol 140 0 - 200 mg/dL HDL 60 >=40 mg/dL LDL Cholesterol 70 0 - 100 mg/dL Blood Venous blood specimen / Unknown Historical Provider MD LAB BLOOD ORDERABLES Erma brown Result * Colonoscopy (05/26/2020) Colonoscopy No interpreta tion,abstr acted Anatomical Region Laterality Modality Other Historical Provider HEALTH MAINTENANCE Final Result from Last 3 Months or Most Recently Relevant to Health Maintenance [place] [address] [place] [address] Care Teams Material Processor Relationship Specialty Start Date End Date Mike Watson PA [address] [place] [address] PCP - General Internal Medicine 01/31/24
--- OUTSIDE RECORDS SUMMARY | 2024-04-02 12:04 | XMS_ITS | Clinical Summary ---
Author Organization [facility] Address [address] [place] [address] Care Team Providers Care Network Operations Technician Name Role Phone Doni RUSSO MD, Hossein Luz Primary Care Provider [phone] Medications albuterol 2.5 mg/3 mL (0.083%) nebulizer [...] 11/28/2021 9:47 AM EDT Plan of Treatment Health Maintenance Due Date Last Done Comments Cologuard 1960 Colon Cancer Screening 1960 Colonoscopy 1960 FOBT / Fit Test 1960 HIV Screening 1960 Sigmoidoscopy 1960 Pneumococcal Vaccine: Pediatric (0-5 Years) and At-Risk Patients (6-50 Years) (1 of 2 - PCV) 1966 Pneumococcal Vaccine: 50+ Years (1 of 2 - PCV) 10/21/1979 DTaP,Tdap,and Td Vaccines (2 - Td or Tdap) 03/05/2019 03/05/2009 RSV Vaccine (60+ years old and patients) (1 - Risk 60-74 years 1-dose series) 2020 COVID-19 Vaccine ( season) 2023 11/20/2021, 05/02/2021, 10/12/2020, Additional history exists Influenza Vaccine (#1) 2023 , 11/12/2018, 01/21/2018, Additional history exists Alcohol/Substance Use Screening 02/13/2024 Depression Screening and Follow-Up 02/13/2024 Social Drivers of Health Annual Screening 02/13/2024 Hepatitis C Screening Completed 04/07/2021 Zoster Vaccines Completed 07/19/2021, 05/13/2021 Hepatitis B Vaccines Aged Out No long er eligible based on patient's age to complete this topic Insurance Dr [place], [place] [id number] [facility] Care Teams Network Operations Technician Relationship Specialty Start Date End Date Hossein Marion III, MD PCP - General Internal Medicine 04/20/21
== END 2024-04-02 11:52 | disposition home or self-care (01) ==
PROVIDERS: PCP Physician Assistant Medical; Visit Provider Internal Medicine Pulmonary Disease
DX: J84.9 Interstitial pulmonary disease, unspecified (principal); R06.00 Dyspnea, unspecified
CPT/HCPCS: 99214

== ENCOUNTER → 2024-04-02 11:24 | Outpatient (BNVA) | payer OTHER, SELFPAY ==
[2022-12-18 15:57] VITALS: BMI 28.8
== END ==
PROVIDERS: PCP Physician Assistant Medical; Visit Provider Internal Medicine Pulmonary Disease

== ENCOUNTER 2024-04-29 10:43 | Outpatient (AMB) | payer OTHER, SELFPAY ==
[2022-12-18 15:57] VITALS: BMI 28.8
[2024-04-29 10:48] VITALS: BP 138/67; PULSE 63; O2SAT 99; BMI 28.6
--- NOTE | 2024-04-29 10:48 | A.OFFVIS_ITS ---
Vital Signs 04/29/24 10:48 Height 6 ft 2 in Weight 222 lb 10.67 oz BMI 28.6 BP 138/67 Blood Pressure Location Rt brachial Position Sitting Pulse 63 Pulse Source Doppler Pulse Oximetry (%) 99 Oxygen Delivery Method Room Air Intake Visit Reasons: Cough Allergies gluten Allergy (Severe, Verified 04/29/24 10:53) Diarrhea acetaminophen [From PERCOCET] Allergy (Unknown, Verified 04/29/24 10:53) VOMITING codeine [CODEINE] Allergy (Unknown, Verified 04/29/24 10:53) VOMITING oxycodone [From PERCOCET] Allergy (Unknown, Verified 04/29/24 10:53) VOMITING fluconazole Allergy (Verified 04/29/24 10:53) Unknown baclofen Adverse Reaction (Intermediate, Verified 04/29/24 10:53) Nightmare HPI HPI Cough: Details: 63-year-old? gentleman, lifetime nonsmoker, with underlying history of ankylosing? spondylitis followed by Rheumatology now on biologic, initially followed? for organizing pneumonia, chronic productive cough, and dyspnea on? exertion.? Patient previously hospitalized at [facility] with fungal pneumonia with Kathy and Aspergillus noted on? bronchial alveolar lavage cultures.? 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 consolidation therapy.? He has been discharged on voriconazole 400 twice a day and had improved symptom control, however he developed allergic reaction and required switching to IV micafungin.? He has had a total of 12 weeks weeks of IV micafungin therapy with significant improvement in his dyspnea and resolution of his productive cough.? Thereafter his PICC line was discontinued in January of 2021 and he completed pulmonary rehab.?Patient was switched to azathioprine and titrated slowly up to 200 mg daily with good control of his underlying pulmonary symptoms and titration off his chronic prednisone. After the last office visit patient symptoms improved significantly on prednisone taper, however as patient has finished his prednisone taper his symptoms have recurred. He did have follow-up CT chest that showed essentially stable findings over the last 3 years, and specifically no worsening of his underlying interstitial lung disease. [facility] Medical History Blister (nonthermal) of other finger, initial encounter Upper airway cough syndrome COVID-19 vaccine series completed ILD (interstitial lung disease) Ankylosing spondylitis Thoracic outlet syndrome COPD (chronic obstructive pulmonary disease) Acute hyponatremia Ankylosing spondylitis Chronic cough Organizing pneumonia Dyspnea on exertion Pneumonia Bronchitis GERD (gastroesophageal reflux disease) Hyperlipidemia Pulmonary nodules Social History Household Members: None Housing: House Do you presently have visiting nurse or other home services: No Alcohol intake: never Patient Tobacco Use Status: Never used Tobacco Second Hand Smoke Exposure: Yes (35 yr exposure at home) Advance Directives Date on File: 07/29/20 service: No Current occupational status: employed Review of Systems Const Denies daytime sleepiness, Denies excessive sweating, Denies fatigue, Denies fever(s), Denies lethargy, Denies malaise, Denies night sweats, Denies snoring and Denies weight loss Eyes Denies blurry vision and Denies itchy eyes ENT Denies nasal congestion, Denies post nasal drip, Denies sinus pain, Denies sinus pressure and Denies other ( Thrush) Card Denies chest pain, Denies pedal edema, Denies dyspnea, Denies orthopnea and Denies paroxysmal nocturnal dyspnea Resp Reports cough, Denies hemoptysis, Denies excessive phlegm production, Denies dyspnea, Denies snoring and Denies wheezing GI Denies abdominal pain and Denies heartburn Musc Denies myalgias, Denies arthralgias and Denies joint swelling Skin/Breast Denies rash Neuro Denies memory loss and Denies seizure-like activity Psych Denies abnormal sleep pattern, Denies anxiety and Denies memory loss Endo Denies excessive sweating, Denies fatigue and Denies heat intolerance Yusuf/Lymph Denies easy bruising Aller/Immun Denies itchy eyes, Denies seasonal rhinorrhea and Denies wheezing Physical Exam Vital Signs: Last Vital Signs Pulse 63 04/29/24 10:48 BP 138/67 04/29/24 10:48 Pulse Ox 99 04/29/24 10:48 Oxygen Delivery Method Room Air 04/29/24 10:48 BMI result Body Mass Index 28.6 Const General: no acute distress and alert Nutritional Appearance: not obese Orientation/consciousness: Other orientation findings ( oriented) HEENT Head: Yes atraumatic Eyes General: appearance normal, both eyes and all related structures Sclerae: sclerae normal EOM: EOMs intact bilaterally Neck Neck: Yes supple Lymphatic: no lymphadenopathy noted Resp Effort & Inspection: normal respiratory effort and no use of accessory muscles Auscultation: clear to auscultation bilaterally Cardio Rate: regular rate Rhythm: regular rhythm Heart sounds: no gallops, no murmurs and no rubs Skin General skin exam: other ( warm) Extrem General: No clubbing, No cyanosis and No edema Assessment & Plan Assessment & Plan (1) ILD (interstitial lung disease): Code(s): J84.9 - Interstitial pulmonary disease, unspecified Category: Medical (2) Cough: Code(s): R05.9 - Cough, unspecified Category: Medical Plan Previously well controlled on mi around 200, recently with worsening control necessitating prednisone tapers with improvement in symptoms on high-dose of prednisone taper and recurrence of symptoms with lowering of the prednisone dose of being off systemic glucocorticoids. Will start on methotrexate at 5 mg weekly and titrate by 2.5 mg every 2 weeks, initially to 10 mg weekly, and if tolerating and with symptoms not fully controlled, will consider further titrating up to 15 mg weekly. Medications: New methotrexate sodium 5 mg (2 x 2.5 mg) PO QWEEK 18 tabs 0RF Coding Level of Care Code Est Pt Level 4 (61797) Diagnoses ILD (interstitial lung disease) J84.9 Cough R05.9
--- OUTSIDE RECORDS SUMMARY | 2024-04-29 12:42 | XMS_ITS | Clinical Summary ---
Author Organization [facility] Address [address] [place] [id number] Care Team Providers Care Senior Windows Systems Administrator Name Role Phone Sussy Thurston DO Primary [...] Group Subscriber ID Effective Dates Phone Address [facility] [id number] 2020-Present 1 [facility] [address] [place] [address] HMO Care Teams Senior Windows Systems Administrator Relationship Specialty Start Date End Date Sussy Thurston DO PCP - General A Operator 04/21/20
--- OUTSIDE RECORDS SUMMARY | 2024-04-29 12:42 | XMS_ITS | Encounter Summary ---
Author Organization [facility] Address [address] [place] [address] Support Name Relationship Address Phone Mike Hammer Brother [address] [place] [address] Kareen Hammer Extended family member Unknown + Care Team Providers Care Stoker Installer Name Role Phone Mike Watson Primary Care Provider [phone] Reason for Referral * Imaging (Routine) - Pending Review Specialty Diagnoses / Procedures Referred By Gloria szymanski Referred To Contact Cardiology Diagnoses Coronary artery disease involving angoon coronary artery of angoon heart without angina pectoris Procedures Transthoracic echocardiogram (TTE) complete with PRN contrast, bubble, strain, and 3D order panel WY TTE W 2D IMAGE COMPLETE W DOPPLER ECHO & COLOR FLOW DOPPLER ECHO WY LEONARDO 2D COMPLETE W/CONTRAST OR W & WO CONTRAST WITH DOPPLER Mey Irwin NP [address] [place] [address] Dr [address] [place] [address] Phone: tel: fax: [facility] Referral ID Status Reason Start Date Expiration Date V isits Requested Visits Authorized [id number] Pending Review 04/16/2024 04/16/2025 1 1 Reason for Visit * Reason Comments Follow-up Encounter Details Date Type Department Care Team ([facility] Contact Info) Description 04/16/2024 8:10 AM EST Office Visit [facility] Dr Gut[address] [place] [address] Mey Irwin NP [address] [place] [address] Dr [address] [place] [phone] Coronary artery disease involving angoon coronary artery of angoon heart without angina pectoris (Primary Dx); Primary hypertension; Aneurysm of ascending aorta without rupture (CMS/HCC); Hypercholesterolemia Social History Tobacco Use Types Packs/Day Years Used Date Smoking Tobacco: Never Smokeless Tobacco: Never Alcohol Use Standard Drinks/Week Comments No 0 (1 standard drink = 0.6 oz pur e alcohol) Sex and Gender Information Value Date Recorded Sex Assigned at Not on file Legal Sex Male 4:32 PM EST Gender Identity Not on file Sexual Orientation Not on file documented as of this encounter Last Filed Vital Signs Vital Sign Reading Time Taken Comments Blood Pressure 112/60 04/16/2024 7:55 AM EST Pulse 69 04/16/2024 7:55 AM EST Temperature - - Respiratory Rate - - Oxygen Saturation 99% 04/16/2024 7:55 AM EST Inhaled Oxygen Concentration - - Weight 98.2 kg (216 lb 9.6 oz) 04/16/2024 7:55 A M EST Height 188 cm (6' 2 ) 04/16/2024 7:55 AM EST Body Mass Index 27.81 04/16/2024 7:55 AM EST documented in this encounter Progress Notes * Mey Irwin NP - 04/16/2024 8:10 AM ESTAssociated Problem(s): CAD (coronary artery disease) The patient had been reporting ongoing chronic shortness of breath. Recent left heart catheterization February 2024 showed minimal luminal regularities in left main, left circumflex and RCA with 40% stenosis in the proximal LAD. His last echocardiogram also showed normal LV function and no significant valvular disease. We discussed these results in depth today. We discussed that his ongoing breathing issues associated with chest tightness is likely related to pulmonary etiology given his historyof interstitial lung disease given his recent cardiac testing. EKG today shows sinus rhythm. He will continue medical therapy with aspirin, statin, isosorbide mononitrate and diltiazem as prescribed.Will update an echocardiogram to reevaluate LV function to ensure there has not been any changes when compared to prior. Patient advised to seek emergency medical attention by calling 911 if they were to develop severe dyspnea, chest pain that did not resolve with rest or nitroglycerin, or if they were to faint. Orders: Transthoracic echocardiogram (TTE) complete with PRN contrast, bubble, strain, and 3D order panel; Future perflutren lipid microsphere (DEFINITY) 1.3 mL in sodium chloride 0.9% 8.7 mL injection ECG 12 lead * Mey Irwin NP - 04/16/2024 8:10 AM ESTAssociated Problem(s): HTN (hypertension) Blood pressure well-controlled today with a reading 112/60. He will continue his current antihypertensive medication regimen as prescribed. * Mey Irwin NP - 04/16/2024 8:10 AM ESTAssociated Problem(s): Aneurysm of ascending aorta (CMS/HCC) Cardiac CT scan October 2023 showed sinus of Valsalva measuring 4.1 cm. Will continue to monitor annually. * Mey Irwin NP - 04/16/2024 8:10 AM ESTAssociated Problem(s): Hypercholesterolemia Last LDL cholesterol at goal at 70. He will continue on statin therapy as prescribed. I have reviewed with the patient the importance of a heart healthy lifestyle which includes eating a low-fat low-salt diet, getting regular exercise, maintaining a healthy weight, not smoking, and following up with routine medical care. * Mey Irwin NP - 04/16/2024 8:10 AM EST Images from the original note were not included. [facility] PRIMARY VENDING MECHANIC: Golden Solano MD PCP: PRETTY Goldsmith HPI: Moe Hammer is a 63 y.o. old male with a history of mild nonobstructive coronary artery disease, arterial hypertension, coronary artery calcification, carotid artery stenosis, ascending aorta dilation, ankylosing spondylitis status post spinal stimulator followed by rheumatology, interstitial lung disease followed by Dr. Castle at [facility], thoracic outlet syndrome, and hyperlipidemia. Patient presents today for hospital follow up. He continues to experience significant shortness of breath with exertion associated with chest tightness. Symptoms are worse in the cold dry air. He also has an associated dry cough which has been ongoing. He has been closely following with his validation analyst Dr. Chapman at [facility]. He is taking all his medications as prescribed. Cardiac testin. Echocardiogram 01/23/2023: Normal left ventricular systolic function with a left ventricular ejection fraction of 60 to 65%. Normal LV diastolic function. Normal RV size and function. No significant valvular disease. Mild ascending aorta dilation of 4.1 cm. 2. Holter monitor August 2021: NSR. Rare PACs. Rare PVCs. No sustained arrhythmias. No significant pauses. 3. Carotid artery duplex 02/15/2021: Less than 50% stenosis in the ICAs bilaterally. 4. Chest CT scan without contrast September 2020: Moderate coronary artery calcifications. 5. Cardiac CT 11/06/2023 sinus of Valsalva measuring 4.1 cm. Evidence of PFO. Left main with no significant plaque or stenosis. Mild to moderate predominantly calcified plaque burden in the LAD with multifocal 25 to 50% stenosis. CT FFR analysis showed FFR of the LAD in normal range. Left circumflexcausing 25 to 40% stenosis in CT FFR was in normal range. RCA was scattered small calcified plaqueswith no significant stenosis. 6. Carotid artery ultrasound 08/27/2023: Less than 50% stenosis in the ICAs bilaterally 7. Left heart catheterization 02/14/24: Minimal luminal irregularities in the left main, 40% stenosisin proximal LAD with minimal luminal irregularities in the left circumflex and RCA. ACTIVE MEDICATIONS: Outpatient Medications Marked as Taking for the 04/16/24 encounter (Office Visit) with Mey Irwin NP Medication Sig Dispense Refill acetaminophen (TYLENOL) 500 mg tablet Take 1 tablet (500 mg total) by mouth every 6 (six) hours if needed. albuterol 2.5 mg /3 mL (0.083 %) nebulizer solution 3 mL (2.5 mg total). albuterol HFA (PROAIR HFA ; PROVENTIL HFA ; VENTOLIN HFA) 90 mcg/actuation inhaler Inhale 2 puffs by mouth every 6 (six) hours if needed. aspirin 81 mg EC tablet Take 1 tablet (81 mg total) by mouth 1 (one) time each day. atorvastatin (LIPITOR) 20 mg tablet Take 1 tablet (20 mg total) by mouth 1 (one) time each day. 90 tablet 3 azaTHIOprine (IMURAN) 100 mg tablet Take 2 tablets (200 mg total) by mouth 1 (one) time each day. calcium carbonate-vitamin D3 600 mg-20 mcg (800 unit) tablet Take by mouth 1 (one) time each day. cetirizine (ZyrTEC) 10 mg tablet TAKE ONE TABLET BY MOUTH EVERY DAY 90 tablet 1 cyclobenzaprine (FLEXERIL) 10 mg tablet TAKE ONE TABLET BY MOUTH AT BEDTIME AND 1 TABLET IN THE MORNING NEEDED diclofenac (VOLTAREN) 1 % topical gel APPLY 4 GRAMS TOPICALLY 4 TIMES A DAY NEEDED FOR OTHER (ARTHRITIS PAIN). 100 g 3 DILT-XR 120 mg 24 hr capsule Take 1 capsule (120 mg total) by mouth 1 (one) time each day. fluticasone propionate (FLONASE) 50 mcg/actuation nasal spray Administer into affected nostril(s). folic acid (FOLVITE) 1 mg tablet Take 1 tablet (1 mg total) by mouth 1 (one) time each day. 30 each11 Golimumab (Simponi ARIA) 12.5 mg/mL solution injection Infuse into a venous catheter. isosorbide mononitrate (IMDUR) 60 mg 24 hr tablet Take 1 tablet (60 mg total) by mouth 1 (one) timeeach day. lidocaine (LIDODERM) 5 % patch APPLY ONE PATCH EXTERNAL DAILY TO BACK NEEDED omeprazole (PriLOSEC) [address] capsule TAKE ONE CAPSULE BY MOUTH EVERY DAY 90 capsule 1 ondansetron (ZOFRAN) 8 mg tablet Take 1 tablet (8 mg total) by mouth every 8 (eight) hours if needed. predniSONE (DELTASONE) 10 mg tablet Take 3 tablets (30 mg total) by mouth 1 (one) time each day. patient is doing taper dose pregabalin (LYRICA) 100 mg capsule Take 1 capsule (100 mg total) by mouth 2 (two) times a day. Max Daily Amount: 200 mg sulfamethoxazole-trimethoprim (BACTRIM,SEPTRA) 400-80 mg per tablet Take 1 tablet by mouth 1 (one) time each day. PAST MEDICAL HISTORY: Patient Active Problem List Diagnosis Aneurysm of ascending aorta (CMS/HCC) Ankylosing spondylitis (CMS/HCC) CAD (coronary artery disease) Carotid artery stenosis Eosinophilic esophagitis Fatty liver HTN (hypertension) Hydronephrosis Hypercholesterolemia Hyponatremia ILD (interstitial lung disease) (CMS/HCC) Nephrolithiasis Neurogenic thoracic outlet syndrome Neurostimulator device in situ Folic acid deficiency ALLERGIES: Allergies Allergen Reactions Codeine Nausea And Vomiting Gluten GI intolerance Oxycodone Nausea And Vomiting Oxycodone-Acetaminophen Nausea And Vomiting Baclofen Other Reaction(s): RASH, BLISTERING nightmares Fluconazole Other Other Reaction(s): RASH, BLISTERING blisters Tizanidine Nausea And Vomiting Other Reaction(s): NAUSEA & VOMITING/ RASH, BLISTERING SOCIAL HISTORY: Social History Tobacco Use Smoking status: Never Smokeless tobacco: Never Substance Use Topics Alcohol use: No PHYSICAL EXAM: Vitals: 04/16/24 0755 BP: 112/60 BP Location: Right arm Patient Position: Sitting BP Cuff Size: Adult Pulse: 69 SpO2: 99% Weight: 98.2 kg (216 lb 9.6 oz) Height: 1.88 m (74 ) Physical Exam Constitutional: General: He is awake. He is not in acute distress. Appearance: He is well-developed. He is not diaphoretic. HENT: Head: Normocephalic. Eyes: Pupils: Pupils are equal, round, and reactive to light. Neck: Vascular: No carotid bruit, hepatojugular reflux or JVD. Cardiovascular: Rate and Rhythm: Normal rate and regular rhythm. Pulses: Normal pulses and intact distal pulses. Heart sounds: Normal heart sounds, S1 normal and S2 normal. No murmur heard. Pulmonary: Effort: Pulmonary effort is normal. No respiratory distress. Breath sounds: Normal breath sounds. No wheezing, rhonchi or rales. Chest: Chest wall: No tenderness. Abdominal: General: Bowel sounds are normal. There is no distension. Palpations: Abdomen is soft. Tenderness: There is no abdominal tenderness. Musculoskeletal: General: No swelling or deformity. Normal range of motion. Right lower leg: No edema. Left lower leg: No edema. Skin: General: Skin is warm and dry. Neurological: Mental Status: He is oriented to person, place, and time. Psychiatric: Attention and Perception: Attention normal. Mood and Affect: Mood normal. Speech: Speech normal. EKG: Encounter Date: 04/16/24 ECG 12 lead Result Value Ventricular Rate ECG 69 Atrial Rate 69 P-R Interval 152 QRS Duration 96 Q-T Interval 384 QTc 411 P Wave [place] 50 R [place] 66 T [place] 66 ECG Interpretation Sinus rhythm with Premature atrial complexes Otherwise normal ECG When compared with ECG of 31-JAN-2024 11:09, Premature atrial complexes are now Present *Note: Due to a large number of results and/or encounters for the requested time period, some results have not been displayed. A complete set of results can be found in Results Review. ASSESSMENT/PLAN: Assessment & Plan Coronary artery disease involving [place]on coronary artery of [place]on heart without angina pectoris The patient had been reporting ongoing chronic shortness of breath. Recent left heart catheterization February 2024 showed minimal luminal regularities in left main, left circumflex and RCA with 40% stenosis in the proximal LAD. His last echocardiogram also showed normal LV function and no significant valvular disease. We discussed these results in depth today. We discussed that his ongoing breathing issues associated with chest tightness is likely related to pulmonary etiology given his historyof interstitial lung disease given his recent cardiac testing. EKG today shows sinus rhythm. He will continue medical therapy with aspirin, statin, isosorbide mononitrate and diltiazem as prescribed.Will update an echocardiogram to reevaluate LV function to ensure there has not been any changes when compared to prior. Patient advised to seek emergency medical attention by calling 911 if they were to develop severe dyspnea, chest pain that did not resolve with rest or nitroglycerin, or if they were to faint. Orders: Transthoracic echocardiogram (TTE) complete with PRN contrast, bubble, strain, and 3D order panel; Future perflutren lipid microsphere (DEFINITY) 1.3 mL in sodium chloride 0.9% 8.7 mL injection ECG 12 lead Primary hypertension Blood pressure well-controlled today with a reading 112/60. He will continue his current antihypertensive medication regimen as prescribed. Aneurysm of ascending aorta without rupture (CMS/HCC) Cardiac CT scan October 2023 showed sinus of Valsalva measuring 4.1 cm. Will continue to monitor annually. Hypercholesterolemia Last LDL cholesterol at goal at 70. He will continue on statin therapy as prescribed. I have reviewed with the patient the importance of a heart healthy lifestyle which includes eating a low-fat low-salt diet, getting regular exercise, maintaining a healthy weight, not smoking, and following up with routine medical care. Thank you for allowing us to participate in the care of this patient. The patient will follow up in7 mos, sooner PRN. As per AHA guidelines and previously established plan of care by Dr. Golden Solano MD, we discussed the following today: 1. Coronary artery disease involving angoon coronary artery of an[place]on heart without angina pectoris 2. Primary hypertension 3. Aneurysm of ascending aorta without rupture (CMS/HCC) 4. Hypercholesterolemia [facility] Cosigned by William Soto MD at 04/23/2024 9:20 AM EDT documented in this encounter Plan of Treatment Upcoming Encounters Date Type Department Care Team (Late st Contact Info) Description 04/30/2024 7:45 AM EDT Appointment Radiology Department - [address] [phone] 07/03/2024 12:30 PM EDT Ancillary Procedure [facility] - [address] [place] [address] 10/22/2024 10:45 AM EDT Office Visit Adult Medicine [facility] - [address] [phone] Mike Watson PA [address] [place], [place] 10/24/2024 2:40 PM EDT Office Visit [facility] [address] [place] [address] Ida Caldwell NP [address] [place] [address] [place] [address] Scheduled Orders Name Type Priority Associated Diagnoses Order Schedule Transthoracic echocardiogram (TTE) complete with PRN contrast, bubble, strain, and 3D order panel Echocardiography Routine Coronary artery disease involving an[place] coronary artery of [place] heart without angina pectoris 1 Occurrences starting 04/16/2024 until 04/16/2025 documented as of this encounter Procedures Procedure Name Priority Date/Time Associated Diagnosis Comments ECG 12-LEAD Routine 04/16/2024 8:42 AM EST Coronary artery disease involving angoon coronary artery of [place] heart without angina pectoris documented in this encounter Results * ECG 12 lead (04/16/2024 8:42 AM EST) Ventricular Rate ECG 69 BPM GEMUSE Atrial Rate 69 BPM GEMUSE P-R Interval 152 ms GEMUSE QRS Duration 96 ms GEMUSE Q-T Interval 384 ms GEMUSE QTc 411 ms GEMUSE P Wave [place] 50 degrees GEMUSE R [place] 66 degrees GEMUSE T [place] 66 degrees GEMUSE ECG Interpretation Sinus rhythm with Premature atrial complexes Otherwise normal ECG When compared with ECG of 31-JAN-2024 11:09, Premature atrial complexes are now Present Confirmed by Emely SOTO JAMES ([id number]) on 04/16/2024 12:31:05 PM GEMUSE 04/16/2024 8:26 AM EST 04/16/2024 12:31 PM EST us Mey Irwin NP ECG ORDERABLES Edited Resu lt - Final GEMUSE documented in this encounter Visit Diagnoses Diagnosis Coronary artery disease involving an[place] coronary artery of [place] heart without angina pectoris- Primary Primary hypertension Unspecified essential hypertension Aneurysm of ascending aorta without rupture (CMS/HCC) Hypercholesterolemia Pure hypercholesterolemia documented in this encounter Discontinued Medications Medication Sig Discontinue Reason Start Date End Da te pregabalin (LYRICA) 75 mg capsule Take 1 capsule (75 mg total) by mouth 2 (two) times a day. Dose adjustment 10/12/2023 04/16/2024 documented as of this encounter Historical Medications * This list may reflect changes made after this encounter. predniSONE (DELTASONE) 10 mg tablet Take 3 tablets (30 mg total) by mouth 1 (one) time each day. patient is doing taper dose pregabalin (LYRICA) 100 mg capsule Take 1 capsule (100 mg total) by mouth 2 (two) times a day. 04/21/2024 added in this encounter Care Teams Stoker Installer Relationship Specialty Start Date End Date Mike Watson PA [address] [place] [address] PCP - General Internal Medicine 01/31/24 documented as of this encounter
--- OUTSIDE RECORDS SUMMARY | 2024-04-29 12:42 | XMS_ITS | Referral Summary ---
Author Organization [facility] Address [address] [place] [address] Care Team Providers Care Content Strategist Name Role Phone Doni RUSSO MD, Hossein Luz Primary Care Provider [phone]- [phone] Medications albuterol 2.5 mg/3 mL (0.083%) nebulizer [...] Plan of Treatment Not on file Insurance [facility] Care Teams Content Strategist Relationship Specialty Start Date End Date Hossein Marion III, MD PCP - General Internal Medicine 04/20/21
--- OUTSIDE RECORDS SUMMARY | 2024-04-29 12:42 | XMS_ITS | Clinical Summary ---
Author Organization [facility] [employer] [facility] Address [address] [place] [address] Phone Support Name Relationship Address Phone Mike Hammer Brother [address] [place] [address] Kareen Hammer Extended family member Unknown + Care Team Providers Care Ball Worker Name Role Phone Mike Watson Primary Care Provider [phone] Allergies Active Allergy Reactions Criticality Noted Date [...] BY MOUTH EVERY DAY 90 capsule 1 12/24/19 24 Active acetaminophen (TYLENOL) 500 mg tablet Take 1 tablet (500 mg total) by mouth every 6 (six) hours if needed. 04/10/19 23 Active albuterol HFA (PROAIR HFA ; PROVENTIL HFA ; VENTOLIN HFA) 90 mcg/actuation inhaler Inhale 2 puffs by mouth every 6 (six) hours if needed. Active albuterol 2.5 mg /3 mL (0.083 %) nebulizer solution 3 mL (2.5 mg total). 03/12/19 21 Active aspirin 81 mg EC tablet Take 1 tablet (81 mg total) by mouth 1 (one) time each day. 04/10/19 23 Active azaTHIOprine (IMURAN) 100 mg tablet Take 2 tablets (200 mg total) by mouth 1 (one) time each day. Active calcium carbonate-anna marie min D3 600 mg-20 mcg (800 unit) tablet Take by mouth 1 (one) time each day. Active cyclobenzaprin e (FLEXERIL) 10 mg tablet TAKE ONE TABLET BY MOUTH AT BEDTIME AND 1 TABLET IN THE MORNING NEEDED Active DILT-XR 120 mg 24 hr capsule Take 1 capsule (120 mg total) by mouth 1 (one) time each day. 11/14/19 24 Active fluticasone propionate (FLONASE) 50 mcg/actuation nasal spray Administer into affected nostril(s). 02/16/19 14 Active Golimumab (Simponi ARIA) 12.5 mg/mL solution injection Infuse into a venous catheter. 04/11/19 24 Active isosorbide mononitrate (IMDUR) 60 mg 24 hr tablet Take 1 tablet (60 mg total) by mouth 1 (one) time each day. 11/19/19 24 Active lidocaine (LIDODERM) 5 % patch APPLY ONE PATCH EXTERNAL DAILY TO BACK NEEDED Active ondansetron (ZOFRAN) 8 mg tablet Take 1 tablet (8 mg total) by mouth every 8 (eight) hours if needed. 07/19/19 24 Active cetirizine (ZyrTEC) 10 mg tablet TAKE ONE TABLET BY MOUTH EVERY DAY 90 tablet 1 12/31/19 24 Active diclofenac (VOLTAREN) 1 % topical gel APPLY 4 GRAMS TOPICALLY 4 TIMES A DAY NEEDED FOR OTHER (ARTHRITIS PAIN). 100 g 3 01/18/20 24 Active atorvastatin (LIPITOR) 20 mg tablet Take 1 tablet (20 mg total) by mouth 1 (one) time each day. 90 tablet 3 01/21/20 24 Active folic acid (FOLVITE) 1 mg tablet Take 1 tablet (1 mg total) by mouth 1 (one) time each day. 30 each 11 03/24/19 25 026 Active predniSONE (DELTASONE) 10 mg tablet Take 3 tablets (30 mg total) by mouth 1 (one) time each day. patient is doing taper dose Active pregabalin (LYRICA) 100 mg capsule TAKE ONE CAPSULE BY MOUTH TWICE A DAY 60 capsule 04/22/19 25 Active pregabalin (LYRICA) 75 mg capsule Take 1 capsule (75 mg total) by mouth 2 (two) times a day. 10/12/19 24 025 Discontinued(Do se adjustment) sulfamethoxazo le-trimethopri m (BACTRIM,SEPTR A) 400-80 mg per tablet Take 1 tablet by mouth 1 (one) time each day. 025 Discontinued(Pa tient Discharge) pregabalin (LYRICA) 100 mg capsule Take 1 capsule (100 mg total) by mouth 2 (two) times a day. 025 Discontinued(Re order) pregabalin (LYRICA) 100 mg capsule Take 1 capsule (100 mg total) by mouth 2 (two) times a day. Max Daily Amount: 200 mg 60 each 5 04/22/19 25 025 Discontinued Active Problems Problem Noted Date Diagnosed Date [...] in any contact sports. Assessment & Plan (04/16/2024 8:42 AM EST): Cardiac CT scan October 2023 showed sinus of Valsalva measuring 4.1 cm. Will continue to monitor annually. Assessment & Plan (01/31/2024 11:40 AM EST): [...] lung disease) 01/31/2021 Overview (12/24/2023): Follows with [facility] Pulm Evaluated by [facility] pulmonology who recommended referral to [facility] CAD (coronary artery disease) 10/29/2020 Overview (12/24/2023): [...] they were to faint. Assessment & Plan (04/16/2024 8:42 AM EST): The patient had been reporting ongoing chronic [...] likely related to pulmonary etiology given his history of interstitial lung disease given his recent cardiac testing. EKG today shows sinus rhythm. He will continue medical therapy with aspirin, statin, isosorbide mononitrate and diltiazem as prescribed. Will update an echocardiogram to reevaluate LV function [...] 0.9% 8.7 mL injection ECG 12 lead Assessment & Plan (01/31/2024 11:40 AM EST): [...] and the less than 0.1% risk for ID, stroke or . The patient understands and [...] isosorbide mononitrate swelling below. Assessment & Plan (04/16/2024 8:42 AM EST): Blood pressure well-controlled today with a reading 112/60. He will continue his current antihypertensive medication regimen as prescribed. Assessment & Plan (01/31/2024 11:40 AM EST): [...] with routine medical care. Assessment & Plan (04/16/2024 8:42 AM EST): Last LDL cholesterol at goal at 70. [...] on exertion. Chest pain syndrome 08/30/2012 01/31/20 Overview (12/24/2023): S/p cath August 12 2012- [...] Encounters Date Type Department Care Team Description 04/21/2024 1:00 PM EDT Office Visit Adult Medicine [address] [address] Mike Watson PA ILD (interstitial lung disease) (CMS/HCC) (Primary Dx); Aneurysm of ascending aorta without rupture (CMS/HCC); Ankylosing spondylitis, unspecified site of spine (CMS/HCC); Stenosis of carotid artery, unspecified laterality; Eosinophilic esophagitis; Coronary artery disease due to lipid rich plaque; Primary hypertension; Hypercholesterolemia; Neurogenic thoracic outlet syndrome; Neurostimulator device in situ 04/16/2024 8:10 AM EST Office Visit [facility] Cardiology [facility] [address] [place] [address] Mey Irwin NP Coronary artery disease involving false pass coronary artery of false pass heart without angina pectoris (Primary Dx); Primary hypertension; Aneurysm of ascending aorta without rupture (CMS/HCC); Hypercholesterolemia 02/01/2024 Telephone [facility] [address] [place] [address] Brent Cuellar MD hospital procedure (Cardiac cath) 01/31/2024 11:10 AM EST Office Visit [facility] [address] [place] [address] Mey Irwin NP Coronary artery disease, unspecified vessel or lesion type, unspecified whether angina present, unspecified whether false pass or transplanted heart (Primary Dx); Aneurysm of ascending aorta without rupture (CMS/HCC); Primary hypertension; Hypercholesterolemia; Bilateral carotid artery stenosis 01/31/2024 Telephone [facility] [address] [place] [address] Mey Irwin NP from Last 3 Months [...] Pfizer (ages 12 & older) Bivalent, COVID-19 10/2021 Pneumococcal polysaccharide 23 valent (Pneumovax 23) 2yo and older 12/02/2021 Td Tetanus diptheria (Tdvax) 7yo and older 12/02 Tdap Tetanus diptheria acell ular pertussis (Boostrix; Adacel) 7yo and older 03/05/2009 Zoster recombinant (Shingrix ) 19yo and older 07/19/2021,05/13/2021 Surgical History Surgery Date Site/Laterality Comments OTHER SURGICAL HISTORY 09/12/2013 PROCEDURE: MO PYELOTOMY WITH REMOVAL CALCULUS; COMMENT: cystoscopic Dr. Garcia ESOPHAGOGASTRODUODENOSCOPY 02/13/2012 PROCEDURE: MO EGD TRANSORAL BIOPSY SINGLE/MULTIPLE; COMMENT: furrows in the esophagus, bx: Eosinophilic esophagitis COLONOSCOPY 05/26/2020 N/A PROCEDURE: HISTORICAL COLONOSCOPY; COMMENT: Diminutive colonic polyps x2: Hyperplastic x1, SSA x1. CARDIAC CATHETERIZATION DONE ON 02/14/2024 AT [facility] INDICATIONS:Abnormal Coronary CTA Medical History Medical History Date Comments Chest [...] Tobacco: Never Tobacco Cessation:Counseling Given: Not Answered Alcohol Use Standard Drinks/Week Comments No 0 (1 standard drink = 0.6 oz pur e alcohol) Housing Instability Answer Date Recorde d Are you worried that in the next 2 months you may not have stable housing? No 04/21/2024 Food Access & Nutrition Answer Date Rec orded Do you have access to a vari ety of food including fruits and vegetables? Yes 04/21/2024 Access to Healthcare Answer Date Record ed Within the last 3 months, ho w many times did you visit the emergency department for your medical care? 0 04/21/2024 Health Literacy Answer Date Recorded How often do you need to hav e someone help you when you read instructions, pamphlets, or other written material from your doctor or pharmacy? Never 04/21/2024 Caregiver: How often do you need to have someone help you when you read instructions, pamphlets, or other written material from your doctor or pharmacy? Not on file 04/21/2024 Financial Risk Answer Date Recorded How hard is it for you to pa y for the very basics like food, housing, medical care, and air conditioning / heating? Not very hard 04/21/2024 Transportation Answer Date Recorded Has the lack of transportati on kept you from meetings, work, or from getting things needed for daily living? No Has the lack of transportati on kept you from medical appointments or from getting medications? No 04/21/2024 Social Isolation Answer Date Recorded How often do you feel lonely or isolated from th ose around you? Never 04/21/2024 Food Risk Answer Date Recorded Within the past 12 months we worried whether our food would run out before we got money to buy more. Never true 04/21/2024 Within the past 12 months th e food we bought just didn't last and we didn't have money to get more. Never true 04/21/2024 Dependent Care Answer Date Recorded Do you need help finding or paying for care for your loved ones. For example, child psychologist or elderly care for an older adult? No 04/21/2024 Education Answer Date Recorded Do you think completing more education or training, like finishing a GED, going to college, or learning a trade, would be helpful for you? No 04/21/2024 Employment and Income Answer Date Recor ded During the last four weeks, have you been actively looking for work? No 04/21/2024 Living Situation Answer Date Recorded What is your living situation? 0 04/21/2024 Sex and Gender Information Value Date Recorded Sex Assigned at Not on file Legal Sex Male 4:32 PM EST Gender Identity Not on file Sexual Orientation Not on file Obstetrics History Last Filed Vital Signs Vital Sign Reading Time Taken Comments Blood Pressure 130/69 04/21/2024 12:59 PM EDT Pulse 64 04/21/2024 12:59 PM EDT Temperature 37.3 ??C (99.1 ??F) 04/21/2024 1 2:59 PM EDT Respiratory Rate 16 04/21/2024 12:5 9 PM EDT Oxygen Saturation 99% 04/16/2024 7:55 AM EST Inhaled Oxygen Concentration - - Weight 98.8 kg (217 lb 12.8 oz) 025 12:59 PM EDT Height 188 cm (6' 2 ) 04/21/2024 12:59 PM EDT Body Mass Index 27.96 04/21/2024 12:59 PM EDT Plan of Treatment Upcoming Encounters Date Type Department Care Team (Late st Contact Info) Description 04/30/2024 7:45 AM EDT Appointment Radiology Department - [address] [phone] 07/03/2024 12:30 PM EDT Ancillary Procedure [facility] Cardiology [facility] [address] [place] [address] 10/22/2024 10:45 AM EDT Office Visit Adult Medicine [address] [phone] Mike Watson PA [address] [place], [place] 10/24/2024 2:40 PM EDT Office Visit [facility] [address] [address] [facility] [place] [address] Ida Caldwell NP [address] [place] [address] [place] [address] Health Maintenance Due Date Last Done Comments Hepatitis A Vaccines (1 of 2 - Risk 2-dose series) 10/21/1979 Hepatitis B Vaccines (1 of 3 - Risk 3-dose series) 2020 RSV Immunization Patients 60+ Years Old (1 - Risk 60-74 years 1-dose series) 2020 HIV Screening 01/21/2022 Pneumococcal Vaccine: 50+ Years (2 of 2 - PCV) 12/02/2022 12/02/2021 Pneumococcal Vaccine: Pediatrics (0 to 5 Years) and At-Risk Patients (6 to 64 Years) (2 of 2 - PCV) 12/02/2022 12/02/2021 Hypertension/CHF/CAD Annual BMP Blood Test 04/10/2025 04/10/2024, 03/21/2024, 03/14/2024, Additional history exists Depression Screening 04/17/2025 04/17/2024 Social Influencers of Health Screening 04/21/2025 04/21/2024 Colorectal Cancer Screening: Colonoscopy 05/26/2025 05/26/2020 Cholesterol [...] 8:42 AM EST Coronary artery disease involving false pass coronary artery of false pass heart without angina pectoris CBC WITH AUTO DIFFERENTIAL Routine 04/10/2024 8:23 AM EST Folic acid deficiency PROTHROMBIN TIME WITH INR Routine 04/10/2024 8:23 AM EST Coronary atherosclerosis of false pass coronary artery FOLATE Routine 04/10/2024 8:23 AM EST Folic acid deficiency CBC AND DIFFERENTIAL Routine 04/10/2024 8:23 AM EST Folic acid deficiency GAMMA GLUTAMYL TRANSFERASE Routine 04/10/2024 8:23 AM EST Folic acid deficiency COMPREHENSIVE METABOLIC PANEL Routine 04/10/2024 8:23 AM EST Folic acid deficiency CBC WITH AUTO DIFFERENTIAL Routine 03/21/2024 10:00 [...] type, unspecified whether angina present, unspecified whether false pass or transplanted heart LIPID PANEL Routine 10/12/2023 HM COLONOSCOPY Routine 05/26/2020 from Last 3 Months or Most Recently Relevant to Health Maintenance Results * ECG 12 lead (04/16/2024 8:42 AM EST) Only the most recent of2 resultswithin the time period is included. Ventricular Rate ECG 69 BPM GEMUSE Atrial Rate 69 BPM GEMUSE P-R Interval 152 ms GEMUSE QRS Duration 96 ms GEMUSE Q-T Interval 384 ms GEMUSE QTc 411 ms GEMUSE P Wave [place] 50 degrees GEMUSE R [place] 66 degrees GEMUSE T [place] 66 degrees GEMUSE ECG Interpretation Sinus rhythm with Premature atrial complexes Otherwise normal ECG When compared with ECG of 31-JAN-2024 11:09, Premature atrial complexes are now Present Confirmed by Emely MARTÍNEZ JAMES ([id number]) on 04/16/2024 12:31:05 PM GEMUSE 04/16/2024 8:26 AM EST 04/16/2024 12:31 PM EST Mey Irwin NP ECG ORDERABLES Edited Resu lt - Final GEMUSE * (ABNORMAL) CBC auto differential (04/10/2024 8:23 AM EST) Only the most recent of3 resultswithin the time period is included. Pathologist [facility] WBC 6.9 4.8 - 10.8 K/mcL LAB HEMETOLOGY METHOD 04/10/2024 9:31 AM [facility] RBC 3.90(L) 4.50 - 5.50 M/mcL LAB HEMETOLOGY METHOD 04/10/2024 9:31 AM [facility] Hemoglobin 13.9 13.5 - 17.5 g/dL LAB HEMETOLOGY METHOD 04/10/2024 9:31 AM [facility] Hematocrit 42.1 42.0 - 54.0 % LAB HEMETOLOGY METHOD 04/10/2024 9:31 AM [facility] MCV 107.9(H) 79.0 - 98.0 FL LAB HEMETOLOGY METHOD 04/10/2024 9:31 AM EST [facility] MCH 35.6(H) 27.0 - 32.0 pcg LAB HEMETOLOGY METHOD 04/10/2024 9:31 AM [facility] MCHC 33.0 32.0 - 37.0 g/dL LAB HEMETOLOGY METHOD 04/10/2024 9:31 AM [facility] RDW 12.3 11.0 - 15.0 % LAB HEMETOLOGY METHOD 04/10/2024 9:31 AM [facility] Platelets 263 130 - 400 K/mcL LAB HEMETOLOGY METHOD 04/10/2024 9:31 AM [facility] MPV 9.7 7.0 - 11.0 FL LAB HEMETOLOGY METHOD 04/10/2024 9:31 AM [facility] NRBC 0.0 <1.0 % LAB HEMETOLOGY METHOD 04/10/2024 9:31 AM [facility] NRBC Absolute 0.00 <0.10 K/mcL LAB HEMETOLOGY METHOD 04/10/2024 9:31 AM [facility] Neutrophils Relative 68.7 % LAB HEMETOLOGY METHOD 04/10/2024 9:31 AM [facility] Lymphocytes Relative 15.0 % LAB HEMETOLOGY METHOD 04/10/2024 9:31 AM [facility] Monocytes Relative 11.7 % LAB HEMETOLOGY METHOD 04/10/2024 9:31 AM [facility] Eosinophils Relative 1.0 % LAB HEMETOLOGY METHOD 04/10/2024 9:31 AM [facility] Basophils Relative 1.0 % LAB HEMETOLOGY METHOD 04/10/2024 9:31 AM [facility] Immature Granulocytes Relative 2.6 % LAB HEMETOLOGY METHOD 04/10/2024 9:31 AM [facility] Neutrophils Absolute 4.75 1.50 - 7.00 K/mcL LAB HEMETOLOGY METHOD 04/10/2024 9:31 AM EST [facility] Lymphocytes Absolute 1.04 1.00 - 5.00 K/mcL LAB HEMETOLOGY METHOD 04/10/2024 9:31 AM EST [facility] Monocytes Absolute 0.81 0.20 - 1.00 K/[facility] LAB HEMETOLOGY METHOD 04/10/2024 9:31 AM EST [facility] Eosinophils Absolute 0.07 0.00 - 0.50 K/[facility] LAB HEMETOLOGY METHOD 04/10/2024 9:31 AM EST [facility] Basophils Absolute 0.07 0.00 - 0.20 K/[facility] LAB HEMETOLOGY METHOD 04/10/2024 9:31 AM [facility] Immature Granulocytes Absolute 0.18(H) 0.00 - 0.03 K/[facility] LAB HEMETOLOGY METHOD 04/10/2024 9:31 AM [facility] Blood Venous blood specimen / Unknown Venipuncture / Unknown 04/10/2024 8:23 AM EST 04/10/2024 9:01 AM EST Mike OLSEN LAB BLOOD ORDERABLES Erma l Result [facility] [address] [place] [address], * Prothrombin time with INR (04/10/2024 8:23 AM EST) Protime 12.9 10.6 - 13.9 sec LAB COAGULATION METHOD 04/10/2024 9:33 AM EST [facility] INR 1.0 LAB COAGULATION METHOD 04/10/2024 9:33 AM EST [facility] Blood Venous blood specimen / Unknown Venipuncture / Unknown 04/10/2024 8:23 AM EST 04/10/2024 9:02 AM EST Mey Irwin NP LAB BLOOD ORDERABLES Final Result Performing Organization Address City/[facility]/ZIP Co de Phone Number [facility] [address] [place] [address], [place] [phone] * GGT (04/10/2024 8:23 AM EST) Only the most recent of3 resultswithin the time period is included. [facility] GGT 50 7 - 64 unit/L LAB CHEMISTRY METHOD 04/10/2024 10:08 AM EST [facility] Blood Venous blood specimen / Unknown Venipuncture / Unknown 04/10/2024 8:23 AM EST 04/10/2024 8:58 AM EST Mike OLSEN LAB BLOOD ORDERABLES Erma l Result Performing Organization Address [place]/[facility] Co de Phone Number [facility] [address] [place] [address], [place] [phone] * (ABNORMAL) Folate (04/10/2024 8:23 AM EST) Only the most recent of2 resultswithin the time period is included. [facility] Folate >20.0(H) 2.8 - 17.0 ng/ml LAB CHEMISTRY METHOD 04/10/2024 10:22 AM EST [facility] Blood Venous blood specimen / Unknown Venipuncture / Unknown 04/10/2024 8:23 AM EST 04/10/2024 8:58 AM EST Mike OLSEN LAB BLOOD ORDERABLES Erma l Result Performing Organization Address [place]/[facility]/ZIP Co de Phone Number [facility] [address] [place] [address], [place] [phone] * (ABNORMAL) Comprehensive metabolic panel (04/10/2024 8:23 AM EST) Only the most recent of2 resultswithin the time period is included. Sodium 143 133 - 145 mmol/L LAB CHEMISTRY METHOD 04/10/2024 10:22 AM [facility] Potassium 3.8 3.5 - 5.5 mmol/L LAB CHEMISTRY METHOD 04/10/2024 10:22 AM [facility] Chloride 105 96 - 110 mmol/L LAB CHEMISTRY METHOD 04/10/2024 10:22 AM [facility] CO2 32 21 - 32 mmol/L LAB CHEMISTRY METHOD 04/10/2024 10:22 AM [facility] Anion Gap 6 3 - 11 LAB CHEMISTRY METHOD 04/10/2024 10:22 AM [facility] Glucose 136(H) 70 - 100 mg/dL LAB CHEMISTRY METHOD 04/10/2024 10:22 AM [facility] BUN 14 5 - 25 mg/dL LAB CHEMISTRY METHOD 04/10/2024 10:22 AM [facility] Creatinine 0.76 0.70 - 1.30 mg/dL LAB CHEMISTRY METHOD 04/10/2024 10:22 AM [facility] eGFR 101 >=60 mL/min/1. 73m2 LAB CHEMISTRY METHOD 04/10/2024 10:22 AM [facility] Comment:Calculation based on the??Chronic Kidney Disease Epidemiology Collaboration (CKD-EPI) equation refit??without adjustment for race. BUN/Creatinine Ratio 18.4 LAB CHEMISTRY METHOD 04/10/2024 10:22 AM [facility] Calcium 9.2 8.5 - 10.5 mg/dL LAB CHEMISTRY METHOD 04/10/2024 10:22 AM [facility] AST (SGOT) 64(H) 10 - 42 unit/L LAB CHEMISTRY METHOD 04/10/2024 10:22 AM [facility] ALT (SGPT) 156(H) 10 - 60 unit/L LAB CHEMISTRY METHOD 04/10/2024 10:22 AM EST [facility] Alkaline Phosphatase 72 42 - 121 unit/L LAB CHEMISTRY METHOD 04/10/2024 10:22 AM [facility] Total Protein 6.0 6.0 - 8.0 g/dL LAB CHEMISTRY METHOD 04/10/2024 10:22 AM [facility] Albumin 3.4 3.2 - 5.0 g/dL LAB CHEMISTRY METHOD 04/10/2024 10:22 AM [facility] Total Bilirubin 1.2 0.0 - 1.4 mg/dL LAB CHEMISTRY METHOD 04/10/2024 10:22 AM [facility] Blood Venous blood specimen / Unknown Venipuncture / Unknown 04/10/2024 8:23 AM EST 04/10/2024 8:58 AM EST Mike OLSEN LAB BLOOD ORDERABLES Erma l Result [facility] [address] [place] [address], [place] [phone] * Iron and TIBC (03/21/2024 10:00 AM EST) Only the most recent of2 resultswithin the time period is included. Iron 86 50 - 160 mcg/dL LAB CHEMISTRY METHOD 03/21/2024 2:08 PM [facility] TIBC 342 250 - 450 mcg/dL LAB CHEMISTRY METHOD 03/21/2024 2:08 PM [facility] Iron Saturation 25 20 - 50 % LAB CHEMISTRY METHOD 03/21/2024 2:08 PM [facility] Blood Venous blood specimen / Unknown Venipuncture / Unknown 03/21/2024 10:00 AM EST 03/21/2024 10:00 AM EST Mike OLSEN LAB BLOOD ORDERABLES Erma l Result [facility] [address] [place] [address], [place] [phone] * Ferritin (03/21/2024 10:00 AM EST) [facility] Ferritin 49 26 - 388 ng/mL LAB CHEMISTRY METHOD 03/21/2024 2:31 PM EST [facility] Blood Venous blood specimen / Unknown Venipuncture / Unknown 03/21/2024 10:00 AM EST 03/21/2024 10:00 AM EST Mike OLSEN LAB BLOOD ORDERABLES Erma l Result Performing Organization Address [place]/[facility]/ZIP Co de Phone Number [facility] [address] [place] [address], [place] [phone] * Vitamin B12 (03/21/2024 10:00 AM EST) [facility] Vitamin B-12 383 250 - 900 pcg/mL LAB CHEMISTRY METHOD 03/21/2024 2:31 PM EST [facility] Blood Venous blood specimen / Unknown Venipuncture / Unknown 03/21/2024 10:00 AM EST 03/21/2024 10:00 AM EST Mike OLSEN LAB BLOOD ORDERABLES Erma l Result [facility] [address] [place] [address], [place] [phone] * Hepatitis C antibody (03/14/2024 8:14 AM EST) [facility] Hepatitis C Antibody Negative Negative LAB CHEMISTRY METHOD 03/14/2024 11:44 AM EST [facility] Blood Venous blood specimen / Unknown Venipuncture / Unknown 03/14/2024 8:14 AM EST 03/14/2024 8:14 AM EST Mike Watson PR LAB BLOOD ORDERABLES Erma l Result Performing Organization Address [place]/[facility]/ZIP Co de Phone Number [facility] [address] [place] [address], [place] [phone] * Hepatitis B surface antigen with reflex to confirmation (03/14/2024 8:14 AM EST) Hepatitis B Surface Ag Negative Negative LAB CHEMISTRY METHOD 03/14/2024 11:17 AM EST [facility] Blood Venous blood specimen / Unknown Venipuncture / Unknown 03/14/2024 8:14 AM EST 03/14/2024 8:14 AM EST [facility] - 03/14/2024 11:17 AM EST Over the counter supplements containing high doses of biotin may interfere with this assay. ??If interference is suspected, patients shoud be retested after refraining from biotin supplements for 72 hours. Mike Watson PR LAB BLOOD ORDERABLES Erma l Result Performing Organization Address [place]/[facility] Co de Phone Number [facility] [address] [place] [address], * Hepatitis A antibody total with reflex IgM (03/14/2024 8:14 AM EST) Hep A Total Ab Negative Negative LAB CHEMISTRY METHOD 03/14/2024 11:45 AM EST [facility] Blood Venous blood specimen / Unknown Venipuncture / Unknown 03/14/2024 8:14 AM EST 03/14/2024 8:14 AM EST [facility] [facility] - 03/14/2024 11:45 AM EST Over the counter supplements containing high doses of biotin may interfere with this assay. ??If interference is suspected, patients shoud be retested after refraining from biotin supplements for 72 hours. Mike Watson PR LAB BLOOD ORDERABLES Erma l Result Performing Organization Address [place]/[facility]/ZIP Co de Phone Number [facility] [address] [place] [address], [place] [phone] * Hepatitis B core antibody, total (03/14/2024 8:14 AM EST) Hep B Core Total Ab Negative Negative LAB CHEMISTRY METHOD 03/14/2024 11:45 AM EST [facility] Blood Venous blood specimen / Unknown Venipuncture / Unknown 03/14/2024 8:14 AM EST 03/14/2024 8:14 AM EST Mike OLSEN LAB BLOOD ORDERABLES Erma l Result Performing Organization Address [place]/[facility] Co de Phone Number [facility] [address] [place] [address], [place] [phone] * Hepatitis B surface antibody (03/14/2024 8:14 AM EST) Pathologist [facility] Hepatitis B Surface Ab Negative Negative LAB CHEMISTRY METHOD 03/14/2024 11:06 AM EST [facility] Hepatitis B Surface Ab Quantitative <3.1 mIU/mL LAB CHEMISTRY METHOD 03/14/2024 11:06 AM EST [facility] Blood Venous blood specimen / Unknown Venipuncture / Unknown 03/14/2024 8:14 AM EST 03/14/2024 8:14 AM EST Narrative [facility] - 03/14/2024 11:06 AM EST >=10 mIU/mL is considered to be consistent with immunity. Mike OLSEN LAB BLOOD ORDERABLES Erma l Result Performing Organization Address [place]/[facility]/ZIP Co de Phone Number [facility] [address] [place] [address], [place] [phone] * (ABNORMAL) Hepatic function panel (03/14/2024 8:14 AM EST) Total Protein 5.7(L) 6.0 - 8.0 g/dL LAB CHEMISTRY METHOD 03/14/2024 10:28 AM [facility] Albumin 3.3 3.2 - 5.0 g/dL LAB CHEMISTRY METHOD 03/14/2024 10:28 AM [facility] Total Bilirubin 1.2 0.0 - 1.4 mg/dL LAB CHEMISTRY METHOD 03/14/2024 10:28 AM [facility] Bilirubin, Direct 0.3 0.0 - 0.3 mg/dL LAB CHEMISTRY METHOD 03/14/2024 10:28 AM [facility] Bilirubin, Indirect 0.9 0.0 - 1.1 mg/dL LAB CHEMISTRY METHOD 03/14/2024 10:28 AM [facility] ALT (SGPT) 168(H) 10 - 60 unit/L LAB CHEMISTRY METHOD 03/14/2024 10:28 AM [facility] AST (SGOT) 67(H) 10 - 42 unit/L LAB CHEMISTRY METHOD 03/14/2024 10:28 AM [facility] Alkaline Phosphatase 57 42 - 121 unit/L LAB CHEMISTRY METHOD 03/14/2024 10:28 AM [facility] Blood Venous blood specimen / Unknown Venipuncture / Unknown 03/14/2024 8:14 AM EST 03/14/2024 8:14 AM EST us Mike OLSEN LAB BLOOD ORDERABLES Erma l Result [facility] [address] [place] [address], * (ABNORMAL) Basic metabolic panel (03/14/2024 8:14 AM EST) [facility] Sodium 140 133 - 145 mmol/L LAB CHEMISTRY METHOD 03/14/2024 10:28 AM [facility] Potassium 4.2 3.5 - 5.5 mmol/L LAB CHEMISTRY METHOD 03/14/2024 10:28 AM [facility] Chloride 108 96 - 110 mmol/L LAB CHEMISTRY METHOD 03/14/2024 10:28 AM [facility] CO2 28 21 - 32 mmol/L LAB CHEMISTRY METHOD 03/14/2024 10:28 AM [facility] Anion Gap 4 3 - 11 LAB CHEMISTRY METHOD 03/14/2024 10:28 AM [facility] Glucose 96 70 - 100 mg/dL LAB CHEMISTRY METHOD 03/14/2024 10:28 AM [facility] BUN 13 5 - 25 mg/dL LAB CHEMISTRY METHOD 03/14/2024 10:28 AM [facility] Creatinine 0.57(L) 0.70 - 1.30 mg/dL LAB CHEMISTRY METHOD 03/14/2024 10:28 AM [facility] eGFR 110 >=60 mL/min/1. 73m2 LAB CHEMISTRY METHOD 03/14/2024 10:28 AM [facility] Comment:Calculation based on the??Chronic Kidney Disease Epidemiology Collaboration (CKD-EPI) equation refit??without adjustment for race. BUN/Creatinine Ratio 22.8 LAB CHEMISTRY METHOD 03/14/2024 10:28 AM [facility] Calcium 8.9 8.5 - 10.5 mg/dL LAB CHEMISTRY METHOD 03/14/2024 10:28 AM [facility] Blood Venous blood specimen / Unknown Venipuncture / Unknown 03/14/2024 8:14 AM EST 03/14/2024 8:14 AM EST us Mike OLSEN LAB BLOOD ORDERABLES Erma l Result [facility] [address] [place] [address], * Lipid panel (10/12/2023) LDL/HDL Ratio 2 0 - 4 Triglycerides 51 0 - 150 mg/dL Cholesterol 140 0 - 200 mg/dL HDL 60 >=40 mg/dL LDL Cholesterol 70 0 - 100 mg/dL Blood Venous blood specimen / Unknown Historical Provider MD LAB BLOOD ORDERABLES Erma l Result * Colonoscopy (05/26/2020) Colonoscopy No interpreta tion,abstr acted Anatomical Region Laterality Modality Other us Historical Provider HEALTH MAINTENANCE Final Result from Last 3 Months or Most Recently Relevant to Health Maintenance Insurance [facility] Care Teams Ball Worker Relationship Specialty Start Date End Date Mike Watson PA [address] [place] [id number] PCP - General Internal Medicine 01/31/24
--- OUTSIDE RECORDS SUMMARY | 2024-04-29 12:42 | XMS_ITS | Encounter Summary ---
Author Organization [facility] Address [address] [place] [address] Support Name Relationship Address Phone Mike Hammer Brother [address] [place] [address] Kareen Hammer Extended family member Unknown + Care Team Providers Care Geotechnical Laboratory Technician Name Role Phone Mike Watson Primary Care Provider [phone] Reason for Referral * Imaging (Routine) - Pending Review Specialty Diagnoses / Procedures Referred By Gloria szymanski Referred To Contact Radiology Diagnoses Aneurysm of ascending aorta without rupture (CMS/HCC) Ankylosing spondylitis, unspecified site of spine (CMS/HCC) Stenosis of carotid artery, unspecified laterality Eosinophilic esophagitis Coronary artery disease due to lipid rich plaque Primary hypertension ILD (interstitial lung disease) (CMS/HCC) Hypercholesterolemia Neurogenic thoracic outlet syndrome Neurostimulator device in situ Procedures US Abdomen Limited Mike Watson PA [address] [place] [id number] Phone: tel: fax: [address] Phone: tel: Referral ID Status Reason Start Date Expiration Date V isits Requested Visits Authorized [id number] Pending Review 04/21/2024 04/21/2025 1 1 Reason for Visit * Reason Comments Follow-up 6 month follow up Encounter Details Date Type Department Care Team ([facility] Contact Info) Description 04/21/2024 1:00 PM EDT Office Visit Adult Medicine [place] [address] [place], [place] [phone] Mike Watson PA [address] [place], [place] ILD (interstitial lung disease) (CMS/HCC) (Primary Dx); Aneurysm of ascending aorta without rupture (CMS/HCC); Ankylosing spondylitis, unspecified site of spine (CMS/HCC); Stenosis of carotid artery, unspecified laterality; Eosinophilic esophagitis; Coronary artery disease due to lipid rich plaque; Primary hypertension; Hypercholesterolemia ; Neurogenic thoracic outlet syndrome; Neurostimulator device in situ Social History Tobacco Use Types Packs/Day Years [...] care for your loved ones. For example, early childhood aide classroom or elderly care for an older adult? [...] 04/21/2024 12:5 9 PM EDT Oxygen Saturation - - Inhaled Oxygen Concentration - - Weight 98.8 kg (217 lb 12.8 oz) 025 12:59 PM EDT Height 188 cm (6' 2 ) 04/21/2024 12:59 PM EDT Body Mass Index 27.96 04/21/2024 12:59 PM EDT documented in this encounter Ordered Prescriptions Prescription Sig Dispense Quantity Refills Last Filled Start Date End Date pregabalin (LYRICA) 100 mg capsule Take 1 capsule (100 mg total) by mouth 2 (two) times a day. Max Daily Amount: 200 mg 60 each 5 04/21/2024 documented in this encounter Progress Notes * Missy Rodriguez MA - 04/21/2024 1:00 PM EDT Social Influencers of Health Who provided answers?: Self Within the past 12 months we worried whether our food would run out before we got money to buy more.: Never true Within the past 12 months the food we bought just didn't last and we didn't have money to get more.: Never true How hard is it for you to pay for the very basics like food, housing, medical care, and air conditioning / heating?: Not very hard Are you worried that in the next 2 months you may not have stable housing?: No Do you have access to a variety of food including fruits and vegetables?: Yes Within the last 3 months, how many times did you visit the emergency department for your medical care?: 0 Has the lack of transportation kept you from meetings, work, or from getting things needed for daily living?: No Has the lack of transportation kept you from medical appointments or from getting medications?: No How often do you feel lonely or isolated from those around you?: Never How often do you need to have someone help you when you read instructions, pamphlets, or other written material from your doctor or pharmacy?: Never * PRETTY Villanueva - 04/21/2024 1:00 PM EDT CHIEF COMPLAINT: Follow-up (6 month follow up) IDENTIFIER: Moe Hammer is a 63 y.o. old male. HPI: This pleasant patient presents today for follow-up. He has been struggling with some respiratory symptoms including a cough, shortness of breath and chest discomfort. He did see pulmonary and cardiology. Has been on prednisone and the symptoms do seem to be getting better will be following up with his graduation coach within the next couple of weeks. His folate levels are doing better has been taking the supplement. Blood counts are doing well LFTs are still a little bit high it is not really clear why they are elevated we have done some investigation for this ROS: GENERAL: Negative for malaise, significant weight loss and fever RESPIRATORY: No cough, wheezing or shortness of breath CARDIOVASCULAR: Negative for chest pain, leg swelling and palpitations ENDOCRINE: Negative for cold or heat intolerance, polyuria, polydipsia and goiter NEURO: No persistent headache, fainting, seizures, strokes, TIAs, weakness, numbness or tingling PAST MEDICAL HISTORY: Patient Active Problem List Diagnosis Date Noted Folic acid deficiency 03/24/2024 Neurostimulator device in situ 10/12/2023 Carotid artery stenosis 08/21/2023 Aneurysm of ascending aorta ([facility]) 12/07/2022 Hyponatremia 12/02/2021 ILD (interstitial lung disease) ([facility]) 01/31/2021 CAD (coronary artery disease) 10/29/2020 Hydronephrosis 10/29/2020 Ankylosing spondylitis ([facility]) 2018 Neurogenic thoracic outlet syndrome 07/23/2014 HTN (hypertension) 11/11/2013 Fatty liver 2013 Eosinophilic esophagitis 11/12/2012 Hypercholesterolemia 03/05/2009 Nephrolithiasis 03/05/2009 Past Surgical History: Procedure Laterality Date CARDIAC CATHETERIZATION DONE ON 02/14/2024 AT [facility] INDICATIONS:Abnormal Coronary CTA COLONOSCOPY N/A 05/26/2020 PROCEDURE: HISTORICAL COLONOSCOPY; COMMENT: Diminutive colonic polyps x2: Hyperplastic x1, SSA x1. ESOPHAGOGASTRODUODENOSCOPY 02/13/2012 PROCEDURE: MI EGD TRANSORAL BIOPSY SINGLE/MULTIPLE; COMMENT: furrows in the esophagus, bx: Eosinophilic esophagitis OTHER SURGICAL HISTORY 09/12/2013 PROCEDURE: MI PYELOTOMY WITH REMOVAL CALCULUS; COMMENT: cystoscopic Dr. Garcia SOCIAL HISTORY: Social History Tobacco Use Smoking status: Never Smokeless tobacco: Never Substance Use Topics Alcohol use: No FAMILY HISTORY: Family History Problem Relation Name Age of Onset Heart attack Paternal Grandfather 50.00 Heart attack Maternal Grandfather 50.00 Heart attack Father 50.00 No Known Problems Brother Heart attack Brother 50.00 Heart attack Brother 50.00 Hypertension Mother Diabetes Mother Hyperlipidemia Mother Family Status Relation Name Status PGF (Not Specified) MGF (Not Specified) Father Brother Alive Brother Alive Brother Alive Mother Alive No partnership data on file MEDICATIONS DISCONTINUED/REORDERED: Medications Discontinued During This Encounter Medication Reason sulfamethoxazole-trimethoprim (BACTRIM,SEPTRA) 400-80 mg per tablet Patient Discharge pregabalin (LYRICA) 100 mg capsule Reorder ACTIVE MEDICATIONS: Outpatient Medications Marked as Taking for the 04/21/24 encounter (Office Visit) with PRETTY Villanueva Medication Sig Dispense Refill acetaminophen (TYLENOL) 500 [...] Daily Amount: 200 mg 60 each 5 [DISCONTINUED] pregabalin (LYRICA) 100 mg capsule Take 1 capsule (100 mg total) by mouth 2 (two) times a day. ALLERGIES: Allergies Allergen Reactions Codeine Nausea And Vomiting Gluten GI intolerance Oxycodone Nausea And Vomiting Oxycodone-Acetaminophen Nausea And Vomiting Baclofen Other Reaction(s): RASH, BLISTERING nightmares Fluconazole Other Other Reaction(s): RASH, BLISTERING blisters Tizanidine Nausea And Vomiting Other Reaction(s): NAUSEA & VOMITING/ RASH, BLISTERING PHYSICAL EXAM: Visit Vitals BP 130/69 Pulse 64 Temp 37.3 ??C (99.1 ??F) (Temporal) Resp 16 Ht 1.88 m (74 ) Wt 98.8 kg (217 lb 12.8 oz) BMI 27.96 kg/m?? Smoking Status Never BSA 2.25 m?? General appearance: alert and oriented, in no acute distress Lungs: clear to auscultation bilaterally Heart: regular rate and rhythm, S1, S2 normal, no murmur, click, rub or gallop Extremities: extremities normal, warm and well-perfused; no cyanosis, clubbing, or edema Neurologic: Grossly normal LABS/IMAGING: Labs IMPRESSION: 1. ILD (interstitial lung disease) (CMS/HCC) 2. Aneurysm of ascending aorta without rupture (CMS/HCC) 3. Ankylosing spondylitis, unspecified site of spine (CMS/HCC) 4. Stenosis of carotid artery, unspecified laterality 5. Eosinophilic esophagitis 6. Coronary artery disease due to lipid rich plaque 7. Primary hypertension 8. Hypercholesterolemia 9. Neurogenic thoracic outlet syndrome 10. Neurostimulator device in situ PLAN: 1. Interstitial lung disease, he struggling with some respiratory symptoms. He did meet with cardiology but it was felt that the symptoms were likely more pulmonary he is still taking some prednisonewill be following up with his graduation coach in the next couple of weeks. 2. His folate levels and blood counts are doing better we will continue to monitor. 3. LFTs are still a little bit high it is not clear what is causing this we will check ultrasound and some follow-up labs on this. 4. Blood pressure under good control continue present regimen. 5. Hyperlipidemia, continue statin. 6. Coronary disease reviewed recent cardiac cath does have minimal obstructive disease no intervention needed at this point. 7. History of esophagitis denies dysphagia continues on omeprazole I have applied the code G2211 to this patient???s visit as the primary care provider dealing with (list the condition that is/are complex) leading to the extensive work up, and management associated with the medical care of this patient. This patient???s serious conditions and complex medical conditions also required several consultants needing management and coordination through my office. I have reviewed all information as it pertains to the management of this patient for final approval. Advised the patient to call me if any problems. Patient understands the plan. Patient is in agreement with the plan. documented in this encounter Plan of Treatment Upcoming Encounters Date Type Department Care Team (Late st Contact Info) Description 04/30/2024 7:45 AM EDT Appointment Radiology Department - [address] [phone] 07/03/2024 12:30 PM EDT Ancillary Procedure [facility] [address] [place] [address] 10/22/2024 10:45 AM EDT Office Visit Adult Medicine [facility] - [address] [phone] Mike Watson PA [address] [place] [address] 10/24/2024 2:40 PM EDT Office Visit [facility] [address] [facility] [address] [place] [address] Ida Caldwell, RADHA [address] [place] [address] Dr [place]AUR, [place] [address] Scheduled Orders Name Type Priority Associated Diagnoses Orde r Schedule CBC and differential Lab Routine Aneurysm of ascending aorta without rupture (CMS/HCC) Ankylosing spondylitis, unspecified site of spine (CMS/HCC) Stenosis of carotid artery, unspecified laterality Eosinophilic esophagitis Coronary artery disease due to lipid rich plaque Primary hypertension ILD (interstitial lung disease) (CMS/HCC) Hypercholesterolemia Neurogenic thoracic outlet syndrome Neurostimulator device in situ 1 Occurrences starting 04/21/2024 until 04/21/2025 Folate Lab Routine Aneurysm of ascending aorta without rupture (CMS/HCC) Ankylosing spondylitis, unspecified site of spine (CMS/HCC) Stenosis of carotid artery, unspecified laterality Eosinophilic esophagitis Coronary artery disease due to lipid rich plaque Primary hypertension ILD (interstitial lung disease) (CMS/HCC) Hypercholesterolemia Neurogenic thoracic outlet syndrome Neurostimulator device in situ 1 Occurrences starting 04/21/2024 until 04/21/2025 Lipid panel with reflex to direct LDL Lab Routine Aneurysm of ascending aorta without rupture (CMS/HCC) Ankylosing spondylitis, unspecified site of spine (CMS/HCC) Stenosis of carotid artery, unspecified laterality Eosinophilic esophagitis Coronary artery disease due to lipid rich plaque Primary hypertension ILD (interstitial lung disease) (CMS/HCC) Hypercholesterolemia Neurogenic thoracic outlet syndrome Neurostimulator device in situ 1 Occurrences starting 04/21/2024 until 04/21/2025 Comprehensive metabolic panel Lab Routine Aneurysm of ascending aorta without rupture (CMS/HCC) Ankylosing spondylitis, unspecified site of spine (CMS/HCC) Stenosis of carotid artery, unspecified laterality Eosinophilic esophagitis Coronary artery disease due to lipid rich plaque Primary hypertension ILD (interstitial lung disease) (CMS/HCC) Hypercholesterolemia Neurogenic thoracic outlet syndrome Neurostimulator device in situ 1 Occurrences starting 04/21/2024 until 04/21/2025 Hemoglobin A1c Lab Routine Aneurysm of ascending aorta without rupture (CMS/HCC) Ankylosing spondylitis, unspecified site of spine (CMS/HCC) Stenosis of carotid artery, unspecified laterality Eosinophilic esophagitis Coronary artery disease due to lipid rich plaque Primary hypertension ILD (interstitial lung disease) (CMS/HCC) Hypercholesterolemia Neurogenic thoracic outlet syndrome Neurostimulator device in situ 1 Occurrences starting 04/21/2024 until 04/21/2025 US Abdomen Limited Imaging Routine Aneurysm of ascending aorta without rupture (CMS/HCC) Ankylosing spondylitis, unspecified site of spine (CMS/HCC) Stenosis of carotid artery, unspecified laterality Eosinophilic esophagitis Coronary artery disease due to lipid rich plaque Primary hypertension ILD (interstitial lung disease) (CMS/HCC) Hypercholesterolemia Neurogenic thoracic outlet syndrome Neurostimulator device in situ Expected: 04/21/2024, Expires: 04/21/2025 GGT Lab Routine Aneurysm of ascending aorta without rupture (CMS/HCC) Ankylosing spondylitis, unspecified site of spine (CMS/HCC) Stenosis of carotid artery, unspecified laterality Eosinophilic esophagitis Coronary artery disease due to lipid rich plaque Primary hypertension ILD (interstitial lung disease) (CMS/HCC) Hypercholesterolemia Neurogenic thoracic outlet syndrome Neurostimulator device in situ 1 Occurrences starting 04/21/2024 until 04/21/2025 Antimitochondrial antibody Lab Routine Aneurysm of ascending aorta without rupture (CMS/HCC) Ankylosing spondylitis, unspecified site of spine (CMS/HCC) Stenosis of carotid artery, unspecified laterality Eosinophilic esophagitis Coronary artery disease due to lipid rich plaque Primary hypertension ILD (interstitial lung disease) (CMS/HCC) Hypercholesterolemia Neurogenic thoracic outlet syndrome Neurostimulator device in situ 1 Occurrences starting 04/21/2024 until 04/21/2025 Hepatitis B surface antibody Lab Routine Aneurysm of ascending aorta without rupture (CMS/HCC) Ankylosing spondylitis, unspecified site of spine (CMS/HCC) Stenosis of carotid artery, unspecified laterality Eosinophilic esophagitis Coronary artery disease due to lipid rich plaque Primary hypertension ILD (interstitial lung disease) (CMS/HCC) Hypercholesterolemia Neurogenic thoracic outlet syndrome Neurostimulator device in situ 1 Occurrences starting 04/21/2024 until 07/22/2024 Hepatitis B surface antigen with reflex to confirmation Lab Routine Aneurysm of ascending aorta without rupture (CMS/HCC) Ankylosing spondylitis, unspecified site of spine (CMS/HCC) Stenosis of carotid artery, unspecified laterality Eosinophilic esophagitis Coronary artery disease due to lipid rich plaque Primary hypertension ILD (interstitial lung disease) (CMS/HCC) Hypercholesterolemia Neurogenic thoracic outlet syndrome Neurostimulator device in situ 1 Occurrences starting 04/21/2024 until 07/22/2024 Hepatitis B core antibody, total Lab Routine Aneurysm of ascending aorta without rupture (CMS/HCC) Ankylosing spondylitis, unspecified site of spine (CMS/HCC) Stenosis of carotid artery, unspecified laterality Eosinophilic esophagitis Coronary artery disease due to lipid rich plaque Primary hypertension ILD (interstitial lung disease) (CMS/HCC) Hypercholesterolemia Neurogenic thoracic outlet syndrome Neurostimulator device in situ 1 Occurrences starting 04/21/2024 until 07/22/2024 Hepatitis A antibody total with reflex IgM Lab Routine Aneurysm of ascending aorta without rupture (CMS/HCC) Ankylosing spondylitis, unspecified site of spine (CMS/HCC) Stenosis of carotid artery, unspecified laterality Eosinophilic esophagitis Coronary artery disease due to lipid rich plaque Primary hypertension ILD (interstitial lung disease) (CMS/HCC) Hypercholesterolemia Neurogenic thoracic outlet syndrome Neurostimulator device in situ 1 Occurrences starting 04/21/2024 until 07/22/2024 Hepatitis C antibody Lab Routine Aneurysm of ascending aorta without rupture (CMS/HCC) Ankylosing spondylitis, unspecified site of spine (CMS/HCC) Stenosis of carotid artery, unspecified laterality Eosinophilic esophagitis Coronary artery disease due to lipid rich plaque Primary hypertension ILD (interstitial lung disease) (CMS/HCC) Hypercholesterolemia Neurogenic thoracic outlet syndrome Neurostimulator device in situ 1 Occurrences starting 04/21/2024 until 07/22/2024 documented as of this encounter Visit Diagnoses Diagnosis ILD (interstitial lung disease) (CMS/HCC)- Primary Postinflammatory pulmonary fibrosis Aneurysm of ascending aorta without rupture (CMS/HCC) Ankylosing spondylitis, unspecified site of spine (CMS/HCC) Stenosis of carotid artery, unspecified laterality Eosinophilic esophagitis Coronary artery disease due to lipid rich plaque Primary hypertension Unspecified essential hypertension Hypercholesterolemia Pure hypercholesterolemia Neurogenic thoracic outlet syndrome Brachial plexus lesions Neurostimulator device in situ documented in this encounter Discontinued Medications Medication Sig Discontinue Reason Start Date End Da te sulfamethoxazole-trimeth oprim (BACTRIM,SEPTRA) 400-80 mg per tablet Take 1 tablet by mouth 1 (one) time each day. Patient Discharge 04/21/2024 pregabalin (LYRICA) 100 mg capsule Take 1 capsule (100 mg total) by mouth 2 (two) times a day. Reorder 04/21/2024 documented as of this encounter Additional Health Concerns Assessment Noted Time PHQ-9 Depression Total Score: 0 04/18/19 25 9:59 AM EST documented as of this encounter Care Teams Geotechnical Laboratory Technician Relationship Specialty Start Date End Date Mike Watson PA [address] [place] [address] PCP - General Internal Medicine 01/31/24 documented as of this encounter
--- OUTSIDE RECORDS SUMMARY | 2024-04-29 12:42 | XMS_ITS | Clinical Summary ---
Author Organization [facility], Address [address] [place] [address] [place] [address] Phone Care Team Providers Care Staff Appraiser Name Role Phone Hossein Marion MD Primary Care Provider [phone] Allergies Active Allergy Reactions Criticality Noted Date [...] (#1) 2023 01/21/[address] [place] [id number] [facility] Care Teams Staff Appraiser Relationship Specialty Start Date End Date Hossein Marion MD PCP - General Internal Medicine 04/07/21
--- OUTSIDE RECORDS SUMMARY | 2024-04-29 12:42 | XMS_ITS | Clinical Summary ---
Author Organization [facility] Address [address] [place] [address] Care Team Providers Care Locomotive Engineer Name Role Phone Doni RUSSO MD, Hossein Luz Primary Care Provider [phone] Medications albuterol 2.5 mg/3 mL (0.083%) nebulizer [...] HIV Screening 1960 Sigmoidoscopy 1960 Pneumococcal Vaccine: 50+ Years (1 of 2 [...] to complete [place] [address] [facility] Care Teams Locomotive Engineer Relationship Specialty Start Date End Date Hossein Marion III, MD PCP - General Internal Medicine 04/20/21
--- OUTSIDE RECORDS SUMMARY | 2024-04-29 12:42 | XMS_ITS | Encounter Summary ---
Author Organization [facility], Address [address] [place] [address] Phone Care Team Providers Care Turret Punch Operator Name Role Phone Hossein Marion MD Primary Care Provider [phone] Encounter Details Date Type Department Care Team (Late st Contact Info) Description 04/20/2021 Documentation Only [facility], [address] [place] [phone] Mani Bedolla MD [address] [place] [phone] Social History Tobacco Use Types Packs/Day Years [...] on filedocumented in this encounter Care Teams Turret Punch Operator Relationship Specialty Start Date End Date Hossein Marion MD PCP - General Internal Medicine 04/07/21 documented as of this encounter
== END 2024-04-29 11:06 | disposition home or self-care (01) ==
LOC: HO.HPS 10:44
PROVIDERS: PCP Physician Assistant Medical; Visit Provider Internal Medicine Pulmonary Disease
DX: J84.9 Interstitial pulmonary disease, unspecified (principal); R05.9 Cough, unspecified
CPT/HCPCS: 99214

== ENCOUNTER → 2024-04-29 10:43 | Outpatient (BNVA) | payer OTHER, SELFPAY ==
[2022-12-18 15:57] VITALS: BMI 28.8
== END ==
PROVIDERS: PCP Physician Assistant Medical; Visit Provider Internal Medicine Pulmonary Disease

== ENCOUNTER 2024-06-10 12:41 | Outpatient (AMB) | payer OTHER, SELFPAY ==
[2022-12-18 15:57] VITALS: BMI 28.8
[2024-06-10 13:02] VITALS: BP 128/67; PULSE 66; O2SAT 97; BMI 28.4
--- NOTE | 2024-06-10 13:02 | MHC.OFFVIS ---
Vital Signs 06/10/24 13:02 Height 6 ft 2 in Weight 221 lb BMI 28.4 BP 128/67 Blood Pressure Location Rt brachial Position Sitting Pulse 66 Pulse Source Doppler Pulse Oximetry (%) 97 Oxygen Delivery Method Room Air Intake Visit Reasons: cough Allergies gluten Allergy (Severe, Verified 04/29/24 10:53) Diarrhea acetaminophen [From PERCOCET] Allergy (Unknown, Verified 04/29/24 10:53) VOMITING codeine [CODEINE] Allergy (Unknown, Verified 04/29/24 10:53) VOMITING oxycodone [From PERCOCET] Allergy (Unknown, Verified 04/29/24 10:53) VOMITING fluconazole Allergy (Verified 04/29/24 10:53) Unknown baclofen Adverse Reaction (Intermediate, Verified 04/29/24 10:53) Nightmare HPI HPI cough: Details: 63-year-old? gentleman, lifetime nonsmoker, with underlying history of ankylosing? spondylitis followed by Rheumatology now on biologic, initially followed? for organizing pneumonia, chronic productive cough, and dyspnea on? exertion.? Patient previously hospitalized at [facility] with fungal pneumonia with Kathy and Aspergillus noted on? bronchial alveolar lavage cultures.? 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 consolidation therapy.? He has been discharged on voriconazole 400 twice a day and had improved symptom control, however he developed allergic reaction and required switching to IV micafungin.? He has had a total of 12 weeks weeks of IV micafungin therapy with significant improvement in his dyspnea and resolution of his productive cough.? Thereafter his PICC line was discontinued in January of 2021 and he completed pulmonary rehab.?Patient was switched to azathioprine and titrated slowly up to 200 mg daily with good control of his underlying pulmonary symptoms and titration off his chronic prednisone. Previously patient symptoms improved significantly on prednisone taper, however as patient has finished his prednisone taper his symptoms have recurred. He did have follow-up CT chest that showed essentially stable findings over the last 3 years, and specifically no worsening of his underlying interstitial lung disease. After the last office visit patient was tried on methotrexate and was titrated up to 10 mg weekly with only partial response including significant improvement in his cough, but worsening side effects including significant stiffness and slowly worsening dyspnea. [facility] Medical History Blister (nonthermal) of other finger, initial encounter Upper airway cough syndrome COVID-19 vaccine series completed ILD (interstitial lung disease) Ankylosing spondylitis Thoracic outlet syndrome COPD (chronic obstructive pulmonary disease) Acute hyponatremia Ankylosing spondylitis Chronic cough Organizing pneumonia Dyspnea on exertion Pneumonia Bronchitis GERD (gastroesophageal reflux disease) Hyperlipidemia Pulmonary nodules Social History Household Members: None Housing: House Do you presently have visiting nurse or other home services: No Alcohol intake: never Patient Tobacco Use Status: Never used Tobacco Second Hand Smoke Exposure: Yes (35 yr exposure at home) Advance Directives Date on File: 07/29/20 service: No Current occupational status: employed Review of Systems Const Reports fatigue, Denies fever(s), Denies lethargy, Reports malaise and Denies snoring Card Denies chest pain, Denies pedal edema, Denies dyspnea, Reports dyspnea on exertion, Denies orthopnea and Denies paroxysmal nocturnal dyspnea Resp Reports cough, Denies hemoptysis, Denies excessive phlegm production, Denies dyspnea, Reports dyspnea on exertion, Denies snoring and Denies wheezing GI Denies abdominal pain Musc Reports stiffness Endo Reports fatigue Aller/Immun Denies wheezing Physical Exam Vital Signs: Last Vital Signs Pulse 66 06/10/24 13:02 BP 128/67 06/10/24 13:02 Pulse Ox 97 06/10/24 13:02 Oxygen Delivery Method Room Air 06/10/24 13:02 BMI result Body Mass Index 28.4 Const General: no acute distress and alert Nutritional Appearance: not obese Orientation/consciousness: Other orientation findings ( oriented) HEENT Head: Yes atraumatic Eyes General: appearance normal, both eyes and all related structures Sclerae: sclerae normal EOM: EOMs intact bilaterally Neck Neck: Yes supple Lymphatic: no lymphadenopathy noted Resp Effort & Inspection: normal respiratory effort and no use of accessory muscles Auscultation: clear to auscultation bilaterally Cardio Rate: regular rate Rhythm: regular rhythm Heart sounds: no gallops, no murmurs and no rubs Skin General skin exam: other ( warm) Extrem General: No clubbing, No cyanosis and No edema Assessment & Plan Assessment & Plan (1) ILD (interstitial lung disease): Code(s): J84.9 - Interstitial pulmonary disease, unspecified Category: Medical Plan: Previously with good control on azathioprine 200 daily, over the left you months with worsening control except when on prednisone taper. Tried on methotrexate with only partial response and significant side effects. Will try on mycophenolate, initially 500 mg twice a day, increasing to 1 g twice a day. [facility]. Orders: Referrals Pulmonology Referral J84.9 - Interstitial pulmonary disease, unspecified Medications: New mycophenolate mofetil 1,000 mg (2 x 500 mg) PO BID 120 tabs 3RF 30 days albuterol sulfate 2.5 mg (3 mL) inhalation QID PRN 270 mL 6RF sob Discontinued azathioprine Discontinued Reason: Doctor's Order 200 mg (2 x 100 mg) PO DAILY 60 tabs 6RF Coding Level of Care Code Est Pt Level 4 (47398) Complex EM visit Add On G2211 Diagnoses ILD (interstitial lung disease) J84.9
--- OUTSIDE RECORDS SUMMARY | 2024-06-10 14:33 | XMS_ITS | Clinical Summary ---
Author Organization [facility] Address [address] [place] [id number] Care Team Providers Care Hydrostatic Tester Name Role Phone Sussy Thurston DO [...] Group Subscriber ID Effective Dates Phone Address [facility] [id number] 2020-Present [address] [facility] [address] [place] [address] HMO Care Teams Hydrostatic Tester Relationship Specialty Start Date End Date Sussy Thurston DO PCP - General Electrician [employer] 04/21/20
--- OUTSIDE RECORDS SUMMARY | 2024-06-10 14:33 | XMS_ITS | Encounter Summary ---
Author Organization [facility], Address [address] [place] [address] Phone Care Team Providers Care New Accounts Banking Representative Name Role Phone Hossein Marion MD Primary Care Provider [phone] Encounter Details Date Type Department Care Team (Late st Contact Info) Description 04/20/2021 Documentation Only [facility], [address] [place] [phone] Mani Bedolla MD [address] [place] [phone] Social History Tobacco Use Types Packs/Day Years [...] on filedocumented in this encounter Care Teams New Accounts Banking Representative Relationship Specialty Start Date End Date Hossein Marion MD PCP - General Internal Medicine 04/07/21 documented as of this encounter
--- OUTSIDE RECORDS SUMMARY | 2024-06-10 14:33 | XMS_ITS | Clinical Summary ---
Author Organization [facility] Address [address] [place] [address] Care Team Providers Care Transition Specialist Name Role Phone Doni RUSSO MD, Hossein Luz Primary Care Provider [phone] Medications albuterol 2.5 mg/3 mL (0.083%) nebulizer [...] 2023 11/20/2021, 05/02/2021, 10/12/2020, Additional history exists Alcohol/Substance Use Screening 02/13/2024 Depression Screening and Follow-Up 02/13/2024 Social Drivers of Health Annual Screening 02/13/2024 Influenza Vaccine (Season Ended) 2024 10/21/2019, 11/12/2018, 01/21/2018, Additional history exists Hepatitis C Screening Completed 04/07/2021 Zoster Vaccines Completed 07/19/2021, 05/13/2021 Hepatitis B Vaccines Aged Out No long er eligible based on patient's age to complete [place] [address] [facility] Care Teams Transition Specialist Relationship Specialty Start Date End Date Hossein Marion III, MD PCP - General Internal Medicine 04/20/21
--- OUTSIDE RECORDS SUMMARY | 2024-06-10 14:33 | XMS_ITS | Clinical Summary ---
Author Organization [facility] Address [address] [place] [address] Phone Support Name Relationship Address Phone Mike Hammer Brother [address] [place] [address] Kareen Hammer Extended family member Unknown + Care Team Providers Care Manager Training And Development Name Role Phone Mike Watson Primary Care Provider [phone] Allergies Active Allergy Reactions Criticality Noted Date [...] 1 (one) time each day. Active calcium carbonate-vitam in D3 600 mg-20 mcg (800 unit) tablet [...] into a venous catheter. 04/11/19 24 Active lidocaine (LIDODERM) 5 % patch [...] A DAY 60 capsule 04/22/19 25 Active isosorbide mononitrate (IMDUR) 60 mg 24 hr tablet TAKE ONE TABLET BY MOUTH EVERY DAY 90 tablet 1 05/16/19 25 Active isosorbide mononitrate (IMDUR) 60 mg 24 hr tablet Take 1 tablet (60 mg total) by mouth 1 (one) time each day. 11/19/19 24 025 Discontinued Active Problems Problem Noted Date [...] aspirin and statin. Aneurysm of ascending aorta (CMS/HCC V24) 2022 Overview (12/24/2023): Last Assessment & Plan: The [...] sports. Hyponatremia 12/02/2021 ILD (interstitial lung disease) (CMS/HCC V24, CM S/HCC V28) 01/31/2021 Overview (12/24/2023): [place] [facility] [place]m Evaluated by [facility] pulmonology who recommended referral to [facility] CAD (coronary artery disease) 10/29/2020 Overview (12/24/2023): [...] and the less than 0.1% risk for DC, stroke or . The patient understands and [...] and differential; Future Hydronephrosis 10/29/2020 Ankylosing spondylitis (CMS/HCC V24, CMS/HCC V28 ) 2018 Overview (12/24/2023): Following with arthritis treatment [...] Encounters Date Type Department Care Team Description 04/30/2024 7:20 AM EDT - 04/30/2024 11:59 PM EDT Hospital Encounter Radiology Department - [address] [phone] Elevated LFTs Discharge Disposition: Home or Self Care 04/21/2024 1:00 PM EDT Office Visit Adult Medicine [address] [phone] Mike Watson PA ILD (interstitial lung disease) (CMS/HCC V24, CMS/HCC V28) (Primary Dx); Aneurysm of ascending aorta without rupture (CMS/HCC V24); Ankylosing spondylitis, unspecified site of spine (CMS/HCC V24, CMS/HCC V28); Stenosis of carotid artery, unspecified laterality; Eosinophilic esophagitis; Coronary artery disease due to lipid rich plaque; Primary hypertension; Hypercholesterolemi a; Neurogenic thoracic outlet syndrome; Neurostimulator device in situ 04/16/2024 8:10 AM EST Office Visit [facility] [address] [place] [address] Mey Irwin, RADHA Coronary artery disease involving chickaloon coronary artery of chickaloon heart without angina pectoris (Primary Dx); Primary hypertension; Aneurysm of ascending aorta without rupture ([facility]/HCC V24); Hypercholesterolemi a from Last 3 Months Immunizations Name Administration [...] Site/Laterality Comments OTHER SURGICAL HISTORY 09/12/2013 PROCEDURE: DE PYELOTOMY WITH REMOVAL CALCULUS; COMMENT: cystoscopic Dr. Garcia ESOPHAGOGASTRODUODENOSCOPY 02/13/2012 PROCEDURE: DE EGD TRANSORAL BIOPSY SINGLE/MULTIPLE; COMMENT: furrows in the esophagus, bx: Eosinophilic esophagitis COLONOSCOPY 05/26/2020 N/A PROCEDURE: HISTORICAL COLONOSCOPY; COMMENT: Diminutive colonic polyps x2: Hyperplastic x1, SSA x1. [place] [facility] [place] INDICATIONS:Abnormal Coronary CTA Medical History Medical History [...] care for your loved ones. For example, registered nurse maternal child or elderly care for an older adult? [...] Care Team (Late st Contact Info) Description 07/03/2024 12:30 PM EDT Ancillary Procedure [facility] [address] [place] [id number] 10/22/2024 10:45 AM EDT Office Visit Adult Medicine [facility] [address] [place] [address] Mike Watson PA [address] [place] [address] 10/24/2024 2:40 PM EDT Office Visit [facility] [address] [place] [address] Ida Caldwell, RADHA [address] [place] [address] [place] [address] Health Maintenance Due Date Last Done Comments Hepatitis A Vaccines (1 of 2 - Risk 2-dose series) 10/21/1979 Hepatitis B Vaccines (1 of 3 - Risk 3-dose series) 2020 RSV Immunization Adult Patients (1 - Risk 60-74 years 1-dose series) 2020 HIV Screening 01/21/2022 Pneumococcal Vaccine: 50+ Years (2 of 2 - PCV) 12/02/2022 12/02/2021 Pneumococcal Vaccine: Pediatrics (0 to 5 Years) and At-Risk Patients (6 to 64 Years) (2 of 2 - PCV) 12/02/2022 12/02/2021 COVID-19 Vaccine (8 - Moderna risk 2023- season) 2024 10/24/2023, 06/15/2022, 11/20/2021, Additional history exists Depression Screening 04/17/2025 04/17/2024 Social Influencers of Health Screening 04/21/2025 04/21/2024 Hypertension/CHF/CAD Annual BMP Blood Test 04/30/2025 04/30/2024, 04/10/2024, 03/21/2024, Additional history exists Colorectal Cancer Screening: Colonoscopy 05/26/2025 05/26/2020 Cholesterol Screening (Lipid Panel) 04/30/2029 04/30/2024, 10/12/2023, 10/12/2023 DTaP,Tdap,and Td Vaccines (3 - Td or Tdap) 12/03/2031 12/02/2021, 03/05/2009 Zoster Vaccines Completed 07/19/2021, 05/13/2021 Influenza Vaccine Completed 10/24/2023, , 10/21/2019, Additional history exists Hepatitis C Screening Completed 04/30/2024 , 03/14/2024, 10/09/2022 HIB Vaccines Aged Out No longer eligi [...] age to complete this topic Meningococcal B Vaccine Aged Out No l onger eligible based on patient's age to complete this topic RSV Immunization Patients Under 20 months Aged Out No longer eligible based on patient's age to complete this topic Varicella Vaccines Aged Out No longer eligible based on patient's age to complete this topic Procedures Procedure Name Priority Date/Time Associated Diagnosis Comments CBC WITH AUTO DIFFERENTIAL Routine 04/30/2024 8:11 AM EDT Aneurysm of ascending aorta without rupture ([facility]/HCC V24) Ankylosing spondylitis, unspecified site of spine (CMS/HCC V24, CMS/HCC V28) Stenosis of carotid artery, unspecified laterality Eosinophilic esophagitis Coronary artery disease due to lipid rich plaque Primary hypertension ILD (interstitial lung disease) (CMS/HCC V24, CMS/HCC V28) Hypercholesterolemia Neurogenic thoracic outlet syndrome Neurostimulator device in situ CBC AND DIFFERENTIAL Routine 04/30/2024 8:11 AM EDT Aneurysm of ascending aorta without rupture (CMS/HCC V24) Ankylosing spondylitis, unspecified site of spine (CMS/HCC V24, CMS/HCC V28) Stenosis of carotid artery, unspecified laterality Eosinophilic esophagitis Coronary artery disease due to lipid rich plaque Primary hypertension ILD (interstitial lung disease) (CMS/HCC V24, CMS/HCC V28) Hypercholesterolemia Neurogenic thoracic outlet syndrome Neurostimulator device in situ FOLATE Routine 04/30/2024 8:11 AM EDT Aneurysm of ascending aorta without rupture (CMS/HCC V24) Ankylosing spondylitis, unspecified site of spine (CMS/HCC V24, CMS/HCC V28) Stenosis of carotid artery, unspecified laterality Eosinophilic esophagitis Coronary artery disease due to lipid rich plaque Primary hypertension ILD (interstitial lung disease) (CMS/HCC V24, CMS/HCC V28) Hypercholesterolemia Neurogenic thoracic outlet syndrome Neurostimulator device in situ LIPID PANEL WITH REFLEX TO DIRECT LDL Routine 04/30/2024 8:11 AM EDT Aneurysm of ascending aorta without rupture (CMS/HCC V24) Ankylosing spondylitis, unspecified site of spine (CMS/HCC V24, CMS/HCC V28) Stenosis of carotid artery, unspecified laterality Eosinophilic esophagitis Coronary artery disease due to lipid rich plaque Primary hypertension ILD (interstitial lung disease) (CMS/HCC V24, CMS/HCC V28) Hypercholesterolemia Neurogenic thoracic outlet syndrome Neurostimulator device in situ COMPREHENSIVE METABOLIC PANEL Routine 04/30/2024 8:11 AM EDT Aneurysm of ascending aorta without rupture (CMS/HCC V24) Ankylosing spondylitis, unspecified site of spine (CMS/HCC V24, CMS/HCC V28) Stenosis of carotid artery, unspecified laterality Eosinophilic esophagitis Coronary artery disease due to lipid rich plaque Primary hypertension ILD (interstitial lung disease) (CMS/HCC V24, CMS/HCC V28) Hypercholesterolemia Neurogenic thoracic outlet syndrome Neurostimulator device in situ HEMOGLOBIN A1C Routine 04/30/2024 8:11 AM EDT Aneurysm of ascending aorta without rupture (CMS/HCC V24) Ankylosing spondylitis, unspecified site of spine (CMS/HCC V24, CMS/HCC V28) Stenosis of carotid artery, unspecified laterality Eosinophilic esophagitis Coronary artery disease due to lipid rich plaque Primary hypertension ILD (interstitial lung disease) (CMS/HCC V24, CMS/HCC V28) Hypercholesterolemia Neurogenic thoracic outlet syndrome Neurostimulator device in situ GAMMA GLUTAMYL TRANSFERASE Routine 04/30/2024 8:11 AM EDT Aneurysm of ascending aorta without rupture (CMS/HCC V24) Ankylosing spondylitis, unspecified site of spine (CMS/HCC V24, CMS/HCC V28) Stenosis of carotid artery, unspecified laterality Eosinophilic esophagitis Coronary artery disease due to lipid rich plaque Primary hypertension ILD (interstitial lung disease) (CMS/HCC V24, CMS/HCC V28) Hypercholesterolemia Neurogenic thoracic outlet syndrome Neurostimulator device in situ ANTIMITOCHONDRIAL ANTIBODY Routine 04/30/2024 8:11 AM EDT Aneurysm of ascending aorta without rupture (CMS/HCC V24) Ankylosing spondylitis, unspecified site of spine (CMS/HCC V24, CMS/HCC V28) Stenosis of carotid artery, unspecified laterality Eosinophilic esophagitis Coronary artery disease due to lipid rich plaque Primary hypertension ILD (interstitial lung disease) (CMS/HCC V24, CMS/HCC V28) Hypercholesterolemia Neurogenic thoracic outlet syndrome Neurostimulator device in situ HEPATITIS B SURFACE ANTIBODY Routine 04/30/2024 8:11 AM EDT Aneurysm of ascending aorta without rupture (CMS/HCC V24) Ankylosing spondylitis, unspecified site of spine (CMS/HCC V24, CMS/HCC V28) Stenosis of carotid artery, unspecified laterality Eosinophilic esophagitis Coronary artery disease due to lipid rich plaque Primary hypertension ILD (interstitial lung disease) (CMS/HCC V24, CMS/HCC V28) Hypercholesterolemia Neurogenic thoracic outlet syndrome Neurostimulator device in situ HEPATITIS B SURFACE ANTIGEN WITH CONFIRMATION Routine 04/30/2024 8:11 AM EDT Aneurysm of ascending aorta without rupture (CMS/HCC V24) Ankylosing spondylitis, unspecified site of spine (CMS/HCC V24, CMS/HCC V28) Stenosis of carotid artery, unspecified laterality Eosinophilic esophagitis Coronary artery disease due to lipid rich plaque Primary hypertension ILD (interstitial lung disease) (CMS/HCC V24, CMS/HCC V28) Hypercholesterolemia Neurogenic thoracic outlet syndrome Neurostimulator device in situ HEPATITIS B CORE ANTIBODY, TOTAL Routine 04/30/2024 8:11 AM EDT Aneurysm of ascending aorta without rupture (CMS/HCC V24) Ankylosing spondylitis, unspecified site of spine (CMS/HCC V24, CMS/HCC V28) Stenosis of carotid artery, unspecified laterality Eosinophilic esophagitis Coronary artery disease due to lipid rich plaque Primary hypertension ILD (interstitial lung disease) (CMS/HCC V24, CMS/HCC V28) Hypercholesterolemia Neurogenic thoracic outlet syndrome Neurostimulator device in situ HEPATITIS A ANTIBODY TOTAL WITH REFLEX IGM Routine 04/30/2024 8:11 AM EDT Aneurysm of ascending aorta without rupture (CMS/HCC V24) Ankylosing spondylitis, unspecified site of spine (CMS/HCC V24, CMS/HCC V28) Stenosis of carotid artery, unspecified laterality Eosinophilic esophagitis Coronary artery disease due to lipid rich plaque Primary hypertension ILD (interstitial lung disease) (CMS/HCC V24, CMS/HCC V28) Hypercholesterolemia Neurogenic thoracic outlet syndrome Neurostimulator device in situ HEPATITIS C ANTIBODY Routine 04/30/2024 8:11 AM EDT Aneurysm of ascending aorta without rupture (CMS/HCC V24) Ankylosing spondylitis, unspecified site of spine (CMS/HCC V24, CMS/HCC V28) Stenosis of carotid artery, unspecified laterality Eosinophilic esophagitis Coronary artery disease due to lipid rich plaque Primary hypertension ILD (interstitial lung disease) (CMS/HCC V24, CMS/HCC V28) Hypercholesterolemia Neurogenic thoracic outlet syndrome Neurostimulator device in situ US ABDOMEN LIMITED Routine 04/30/2024 7: 55 AM EDT Elevated LFTs ECG 12-LEAD Routine 04/16/2024 8:42 AM EST Coronary artery disease involving chickaloon coronary artery of chickaloon heart without angina pectoris CBC WITH AUTO DIFFERENTIAL Routine 04/10/2024 8:23 AM EST Folic acid deficiency PROTHROMBIN TIME WITH INR Routine 04/10/2024 8:23 AM EST Coronary atherosclerosis of chickaloon coronary artery FOLATE Routine 04/10/2024 8:23 AM [...] EST Elevated LFTs HEPATIC FUNCTION PANEL Routine 8:14 AM EST Elevated LFTs HM COLONOSCOPY Routine 05/26/2020 from Last 3 Months or Most Recently Relevant to Health Maintenance Results * Hepatitis C antibody (04/30/2024 8:11 AM EDT) Only the most recent of2 resultswithin the time period is included. Pathologist [facility] Hepatitis C Antibody Negative Negative LAB CHEMISTRY METHOD 04/30/2024 11:48 AM EDT [facility] Blood Venous blood specimen / Unknown Venipuncture / Unknown 04/30/2024 8:11 AM EDT 04/30/2024 8:11 AM EDT Mike OLSEN LAB BLOOD ORDERABLES Erma l Result [facility] [address] [place] [address], * Hepatitis B surface antigen with reflex to confirmation (04/30/2024 8:11 AM EDT) Only the most recent of2 resultswithin the time period is included. Pathologist [facility] Hepatitis B Surface Ag Negative Negative LAB CHEMISTRY METHOD 04/30/2024 11:19 AM EDT [facility] Blood Venous blood specimen / Unknown Venipuncture / Unknown 04/30/2024 8:11 AM EDT 04/30/2024 8:11 AM EDT Narrative [facility] - 04/30/2024 11:19 AM EDT Over the counter supplements containing high doses of biotin may interfere with this assay. ??If interference is suspected, patients shoud be retested after refraining from biotin supplements for 72 hours. Mike OLSEN LAB BLOOD ORDERABLES Erma brown Result [facility] [address] [place] [address], [place] [phone] * Lipid panel with reflex to direct LDL (04/30/2024 8:11 AM EDT) Cholesterol 100 0 - 200 mg/dL LAB CHEMISTRY METHOD 04/30/2024 11:47 AM EDT [facility] Triglycerides 35 0 - 150 mg/dL LAB CHEMISTRY METHOD 04/30/2024 11:47 AM EDT [facility] HDL 67 >=40 mg/dL LAB CHEMISTRY METHOD 04/30/2024 11:47 AM EDT [facility] LDL Calculated 26 0 - 100 mg/dL LAB CHEMISTRY METHOD 04/30/2024 11:47 AM [facility] VLDL Cholesterol Vasu 7 mg/dL LAB CHEMISTRY METHOD 04/30/2024 11:47 AM EDT [facility] Non HDL Chol. (LDL+VLDL) 33 <145 mg/dL LAB CHEMISTRY METHOD 04/30/2024 11:47 AM EDT [facility] Chol/HDL Ratio 1.5 0.0 - 4.4 LAB CHEMISTRY METHOD 04/30/2024 11:47 AM [facility] Blood Venous blood specimen / Unknown Venipuncture / Unknown 04/30/2024 8:11 AM EDT 04/30/2024 8:11 AM EDT [facility] LAB BLOOD ORDERABLES Erma l Result Performing Organization Address City/[facility]/ZIP Co de Phone Number [facility] [address] [place] [address], [place] [phone] * Hepatitis A antibody total with reflex IgM (04/30/2024 8:11 AM EDT) Only the most recent of2 resultswithin the time period is included. [facility] Hep A Total Ab Negative Negative LAB CHEMISTRY METHOD 04/30/2024 12:18 PM EDT [facility] Blood Venous blood specimen / Unknown Venipuncture / Unknown 04/30/2024 8:11 AM EDT 04/30/2024 8:11 AM EDT Narrative [facility] - 04/30/2024 12:18 PM EDT Over the counter supplements containing high doses of biotin may interfere with this assay. ??If interference is suspected, patients shoud be retested after refraining from biotin supplements for 72 hours. [facility] LAB BLOOD ORDERABLES Erma l Result Performing Organization Address [facility] Co de Phone Number [facility] [address] [place] [address], [place] [phone] * (ABNORMAL) CBC auto differential (04/30/2024 8:11 AM EDT) Only the most recent of4 resultswithin the time period is included. [facility] WBC 4.4(L) 4.8 - 10.8 K/[facility] LAB HEMETOLOGY METHOD 04/30/2024 10:41 AM EDT [facility] RBC 4.00(L) 4.50 - 5.50 M/[facility] LAB HEMETOLOGY METHOD 04/30/2024 10:41 AM EDT [facility] Hemoglobin 13.7 13.5 - 17.5 g/dL LAB HEMETOLOGY METHOD 04/30/2024 10:41 AM [facility] Hematocrit 41.9(L) 42.0 - 54.0 % LAB HEMETOLOGY METHOD 04/30/2024 10:41 AM [facility] MCV 106.1(H) 79.0 - 98.0 FL LAB HEMETOLOGY METHOD 04/30/2024 10:41 AM [facility] MCH 34.7(H) 27.0 - 32.0 pcg LAB HEMETOLOGY METHOD 04/30/2024 10:41 AM [facility] MCHC 32.7 32.0 - 37.0 g/dL LAB HEMETOLOGY METHOD 04/30/2024 10:41 AM [facility] RDW 12.3 11.0 - 15.0 % LAB HEMETOLOGY METHOD 04/30/2024 10:41 AM [facility] Platelets 179 130 - 400 K/mcL LAB HEMETOLOGY METHOD 04/30/2024 10:41 AM [facility] MPV 9.6 7.0 - 11.0 FL LAB HEMETOLOGY METHOD 04/30/2024 10:41 AM [facility] NRBC 0.0 <1.0 % LAB HEMETOLOGY METHOD 04/30/2024 10:41 AM [facility] NRBC Absolute 0.00 <0.10 K/mcL LAB HEMETOLOGY METHOD 04/30/2024 10:41 AM [facility] Neutrophils Relative 61.1 % LAB HEMETOLOGY METHOD 04/30/2024 10:41 AM [facility] Lymphocytes Relative 21.3 % LAB HEMETOLOGY METHOD 04/30/2024 10:41 AM [facility] Monocytes Relative 11.0 % LAB HEMETOLOGY METHOD 04/30/2024 10:41 AM [facility] Eosinophils Relative 3.4 % LAB HEMETOLOGY METHOD 04/30/2024 10:41 AM EDT [facility] Basophils Relative 1.4 % LAB HEMETOLOGY METHOD 04/30/2024 10:41 AM EDT [facility] Immature Granulocytes Relative 1.8 % LAB HEMETOLOGY METHOD 04/30/2024 10:41 AM EDT [facility] Neutrophils Absolute 2.67 1.50 - 7.00 K/mcL LAB HEMETOLOGY METHOD 04/30/2024 10:41 AM EDT [facility] Lymphocytes Absolute 0.93(L) 1.00 - 5.00 K/mcL LAB HEMETOLOGY METHOD 04/30/2024 10:41 AM EDT [facility] Monocytes Absolute 0.48 0.20 - 1.00 K/mcL LAB HEMETOLOGY METHOD 04/30/2024 10:41 AM EDT [facility] Eosinophils Absolute 0.15 0.00 - 0.50 K/mcL LAB HEMETOLOGY METHOD 04/30/2024 10:41 AM EDT [facility] Basophils Absolute 0.06 0.00 - 0.20 K/mcL LAB HEMETOLOGY METHOD 04/30/2024 10:41 AM EDT [facility] Immature Granulocytes Absolute 0.08(H) 0.00 - 0.03 K/mcL LAB HEMETOLOGY METHOD 04/30/2024 10:41 AM EDT [facility] Blood Venous blood specimen / Unknown Venipuncture / Unknown 04/30/2024 8:11 AM EDT 04/30/2024 8:11 AM EDT us Mike OLSEN LAB BLOOD ORDERABLES Erma l Result [facility] [address] [place] [address], * Hepatitis B core antibody, total (04/30/2024 8:11 AM EDT) Only the most recent of2 resultswithin the time period is included. Hep B Core Total Ab Negative Negative LAB CHEMISTRY METHOD 04/30/2024 12:18 PM EDT [facility] Blood Venous blood specimen / Unknown Venipuncture / Unknown 04/30/2024 8:11 AM EDT 04/30/2024 8:11 AM EDT [facility] LAB BLOOD ORDERABLES Erma l Result Performing Organization Address City/[facility]/ZIP Co de Phone Number [facility] [address] [place] [address], [place] [phone] * Antimitochondrial antibody (04/30/2024 8:11 AM EDT) [facility] Mitochondrial Antibody Quantitative 2.6 <=20.0 units LAB CHEMISTRY METHOD 05/07/2024 1:30 PM EDT [facility] Mitochondrial Antibody Qualitative Negative Negative LAB CHEMISTRY METHOD 05/07/2024 1:30 PM EDT [facility] Blood Venous blood specimen / Unknown Venipuncture / Unknown 04/30/2024 8:11 AM EDT 04/30/2024 8:11 AM EDT [facility] LAB BLOOD ORDERABLES Erma l Result Performing Organization Address City/[facility]/ZIP Co de Phone Number [facility] [address] [place] [address], [place] [phone] * Hepatitis B surface antibody (04/30/2024 8:11 AM EDT) Only the most recent of2 resultswithin the time period is included. Hepatitis B Surface Ab Negative Negative LAB CHEMISTRY METHOD 04/30/2024 11:09 AM EDT [facility] Hepatitis B Surface Ab Quantitative <3.1 mIU/mL LAB CHEMISTRY METHOD 04/30/2024 11:09 AM EDT [facility] Blood Venous blood specimen / Unknown Venipuncture / Unknown 04/30/2024 8:11 AM EDT 04/30/2024 8:11 AM EDT Narrative [facility] - 04/30/2024 11:09 AM EDT >=10 mIU/mL is considered to be consistent with immunity. [facility] Aneta Watson [place] LAB BLOOD ORDERABLES Erma l Result Performing Organization Address City/[facility]/ZIP Co de Phone Number [facility] [address] [place] [address], [place] [phone] * Hemoglobin A1c (04/30/2024 8:11 AM EDT) Pathologist [facility] Hemoglobin A1C 5.6 <6.5 % LAB CHEMISTRY METHOD 04/30/2024 12:30 PM EDT [facility] Mean Bld Glu Estim. 114 mg/dL LAB CHEMISTRY METHOD 04/30/2024 12:30 PM EDT [facility] Blood Venous blood specimen / Unknown Venipuncture / Unknown 04/30/2024 8:11 AM EDT 04/30/2024 8:11 AM EDT Mike Watson OR LAB BLOOD ORDERABLES Erma l Result Performing Organization Address City/[facility]/ZIP Co de Phone Number [facility] [address] [place] [address], [place] [phone] * (ABNORMAL) GGT (04/30/2024 8:11 AM EDT) Only the most recent of4 resultswithin the time period is included. GGT 69(H) 7 - 64 unit/L LAB CHEMISTRY METHOD 04/30/2024 11:00 AM EDT [facility] Blood Venous blood specimen / Unknown Venipuncture / Unknown 04/30/2024 8:11 AM EDT 04/30/2024 8:11 AM EDT [facility] Aneta Watson OR LAB BLOOD ORDERABLES Erma l Result Performing Organization Address [facility]/ZIP Co de Phone Number [facility] [address] [place] [address], [place] [phone] * Folate (04/30/2024 8:11 AM EDT) Only the most recent of3 resultswithin the time period is included. [facility] Folate 8.0 2.8 - 17.0 ng/ml LAB CHEMISTRY METHOD 04/30/2024 11:11 AM EDT [facility] Blood Venous blood specimen / Unknown Venipuncture / Unknown 04/30/2024 8:11 AM EDT 04/30/2024 8:11 AM EDT [facility] Aneta Watson OR LAB BLOOD ORDERABLES Erma l Result Performing Organization Address [facility] de Phone Number [facility] [address] [place] [address], [place] [phone] * (ABNORMAL) Comprehensive metabolic panel (04/30/2024 8:11 AM EDT) Only the most recent of3 resultswithin the time period is included. [facility] Sodium 143 133 - 145 mmol/L LAB CHEMISTRY METHOD 04/30/2024 11:11 AM EDT [facility] Potassium 4.5 3.5 - 5.5 mmol/L LAB CHEMISTRY METHOD 04/30/2024 11:11 AM EDT [facility] Chloride 107 96 - 110 mmol/L LAB CHEMISTRY METHOD 04/30/2024 11:11 AM EDT [facility] CO2 31 21 - 32 mmol/L LAB CHEMISTRY METHOD 04/30/2024 11:11 AM EDT [facility] Anion Gap 5 3 - 11 LAB CHEMISTRY METHOD 04/30/2024 11:11 AM [facility] Glucose 93 70 - 100 mg/dL LAB CHEMISTRY METHOD 04/30/2024 11:11 AM [facility] BUN 14 5 - 25 mg/dL LAB CHEMISTRY METHOD 04/30/2024 11:11 AM [facility] Creatinine 0.73 0.70 - 1.30 mg/dL LAB CHEMISTRY METHOD 04/30/2024 11:11 AM [facility] eGFR 102 >=60 mL/min/1. 73m2 LAB CHEMISTRY METHOD 04/30/2024 11:11 AM [facility] Comment:Calculation based on the??Chronic Kidney Disease Epidemiology Collaboration (CKD-EPI) equation refit??without adjustment for race. BUN/Creatinine Ratio 19.2 LAB CHEMISTRY METHOD 04/30/2024 11:11 AM [facility] Calcium 9.0 8.5 - 10.5 mg/dL LAB CHEMISTRY METHOD 04/30/2024 11:11 AM [facility] AST (SGOT) 82(H) 10 - 42 unit/L LAB CHEMISTRY METHOD 04/30/2024 11:11 AM [facility] ALT (SGPT) 160(H) 10 - 60 unit/L LAB CHEMISTRY METHOD 04/30/2024 11:11 AM [facility] Alkaline Phosphatase 55 42 - 121 unit/L LAB CHEMISTRY METHOD 04/30/2024 11:11 AM [facility] Total Protein 5.8(L) 6.0 - 8.0 g/dL LAB CHEMISTRY METHOD 04/30/2024 11:11 AM [facility] Albumin 3.4 3.2 - 5.0 g/dL LAB CHEMISTRY METHOD 04/30/2024 11:11 AM [facility] Total Bilirubin 1.2 0.0 - 1.4 mg/dL LAB CHEMISTRY METHOD 04/30/2024 11:11 AM [facility] Blood Venous blood specimen / Unknown Venipuncture / Unknown 04/30/2024 8:11 AM EDT 04/30/2024 8:11 AM EDT us Mike OLSEN LAB BLOOD ORDERABLES Erma l Result [facility] [address] [place] [address], [place] [phone] * US Abdomen Limited (04/30/2024 7:55 AM EDT) Anatomical Region Laterality Modality Body Ultrasound 04/30/2024 10:4 0 AM EDT Impressions 04/30/2024 10:47 AM EDT Echogenic hepatic parenchyma which is commonly seen with steatosis and can also be present with chronic hepatocellular disease. POS [id number] -------- FINAL REPORT -------- Dictated By: Dahlia Schmidt Dictated Date: 04/30/2024 10:40 ET Assigned Physician: Dahlia Schmidt Reviewed and Electronically Signed By: Dahlia Schmidt Signed Date: 04/30/2024 10:47 ET Workstation ID: [id number] Transcribed By: Self Edit Transcribed Date: 04/30/2024 10:40 ET Narrative 04/30/2024 10:47 AM EDT EXAM: Abdomen ultrasound, limited HISTORY: Abnormal hepatic function tests. COMPARISON: ??10/18/2022 FINDINGS: Liver: Normal in size measuring 16.7 cm in craniocaudad extent. ??Parenchyma is mildly echogenic. ??No mass detected. Gallbladder/Biliary Tree: Gallbladder lumen appears clear without wall thickening or pericholecystic fluid. No intra or extrahepatic biliary ductal dilatation. The common bile duct measures 0.5 cm. Pancreas: Mildly heterogeneous without a focal abnormality identified. Right kidney: Normal in size measuring 12.2 cm in craniocaudad extent. ??No hydronephrosis, focal lesions, or shadowing stones. Vasculature: Hepatopedal flow in the main portal vein. Procedure Note Dahlia Scmhidt MD - 04/30/2024 EXAM: Abdomen ultrasound, limited HISTORY: Abnormal hepatic function tests. COMPARISON: 10/18/2022 FINDINGS: Liver: Normal in size measuring 16.7 cm in craniocaudad extent.Parenchyma is mildly echogenic. No mass detected. Gallbladder/Biliary Tree: Gallbladder lumen appears clear without wallthickening or pericholecystic fluid. No intra or extrahepatic biliaryductal dilatation. The common bile duct measures 0.5 cm. Pancreas: Mildly heterogeneous without a focal abnormality identified. Right kidney: Normal in size measuring 12.2 cm in craniocaudad extent. Nohydronephrosis, focal lesions, or shadowing stones. Vasculature: Hepatopedal flow in the main portal vein. IMPRESSION: Echogenic hepatic parenchyma which is commonly seen with steatosis and canalso be present with chronic hepatocellular disease. POS [id number] -------- FINAL REPORT -------- Dictated By: Dahlia Schmidt Dictated Date: 04/30/2024 10:40 ET Assigned Physician: Dahlia Schmidt Reviewed and Electronically Signed By: Dahlia Schmidt Signed Date: 04/30/2024 10:47 ET Workstation ID: [id number] Transcribed By: Self Edit Transcribed Date: 04/30/2024 10:40 ET Mike OLSEN IMG US PROCEDURES Final R esult * ECG 12 lead (04/16/2024 8:42 AM EST) Ventricular Rate ECG 69 BPM GEMUSE Atrial Rate 69 BPM GEMUSE P-R Interval 152 ms GEMUSE QRS Duration 96 ms GEMUSE Q-T Interval 384 ms GEMUSE QTc 411 ms GEMUSE P Wave [place] 50 degrees GEMUSE R [place] 66 degrees GEMUSE T [place] 66 degrees GEMUSE ECG Interpretation Sinus rhythm with Premature atrial complexes Otherwise normal ECG When compared with ECG of 31-JAN-2024 11:09, Premature atrial complexes are now Present Confirmed by Emely MARTÍNEZ JAMES ([id number]) on 04/16/2024 12:31:05 PM GEMUSE 04/16/2024 8:26 AM EST 04/16/2024 12:31 PM EST Mey Irwin GLUING MACHINE ADJUSTER ECG ORDERABLES Edited Resu lt - Final GEMUSE * Prothrombin time with INR (04/10/2024 8:23 AM EST) Protime 12.9 10.6 - 13.9 sec LAB COAGULATION METHOD 04/10/2024 9:33 AM EST [facility] INR 1.0 LAB COAGULATION METHOD 04/10/2024 9:33 AM [facility] Blood Venous blood specimen / Unknown Venipuncture / Unknown 04/10/2024 8:23 AM EST 04/10/2024 9:02 AM EST Mey Irwin GLUING MACHINE ADJUSTER LAB BLOOD ORDERABLES Final Result Performing Organization Address [facility]/ZIP Co de Phone Number [facility] [address] [place] [address], * Iron and TIBC (03/21/2024 10:00 AM EST) Only the most recent of2 resultswithin the time period is included. Iron 86 50 - 160 mcg/dL LAB CHEMISTRY METHOD 03/21/2024 2:08 PM [facility] TIBC 342 250 - 450 mcg/dL LAB CHEMISTRY METHOD 03/21/2024 2:08 PM [facility] Iron Saturation 25 20 - 50 % LAB CHEMISTRY METHOD 03/21/2024 2:08 PM [facility] Blood Venous blood specimen / Unknown Venipuncture / Unknown 03/21/2024 10:00 AM EST 03/21/2024 10:00 AM EST Mike OLSEN LAB BLOOD ORDERABLES Erma l Result [facility] [address] [place] [address], [place] [phone] * Ferritin (03/21/2024 10:00 AM EST) Pathologist [facility] Ferritin 49 26 - 388 ng/mL LAB CHEMISTRY METHOD 03/21/2024 2:31 PM [facility] Blood Venous blood specimen / Unknown Venipuncture / Unknown 03/21/2024 10:00 AM EST 03/21/2024 10:00 AM EST Mike OLSEN LAB BLOOD ORDERABLES Erma l Result [facility] [address] [place] [address], [place] [phone] * Vitamin B12 (03/21/2024 10:00 AM EST) [facility] Vitamin B-12 383 250 - 900 pcg/mL LAB CHEMISTRY METHOD 03/21/2024 2:31 PM [facility] Blood Venous blood specimen / Unknown Venipuncture / Unknown 03/21/2024 10:00 AM EST 03/21/2024 10:00 AM EST Mike OLSEN LAB BLOOD ORDERABLES Erma l Result [facility] [address] [place] [address], [place] [phone] * (ABNORMAL) Hepatic function panel (03/14/2024 8:14 AM EST) [facility] Total Protein 5.7(L) 6.0 - 8.0 g/dL LAB CHEMISTRY METHOD 03/14/2024 10:28 AM [facility] Albumin 3.3 3.2 - 5.0 g/dL LAB CHEMISTRY METHOD 03/14/2024 10:28 AM [facility] Total Bilirubin 1.2 0.0 - 1.4 mg/dL LAB CHEMISTRY METHOD 03/14/2024 10:28 AM [facility] Bilirubin, Direct 0.3 0.0 - 0.3 mg/dL LAB CHEMISTRY METHOD 03/14/2024 10:28 AM [facility] Bilirubin, Indirect 0.9 0.0 - 1.1 mg/dL LAB CHEMISTRY METHOD 03/14/2024 10:28 AM [facility] ALT (SGPT) 168(H) 10 - 60 unit/L LAB CHEMISTRY METHOD 03/14/2024 10:28 AM [facility] AST (SGOT) 67(H) 10 - 42 unit/L LAB CHEMISTRY METHOD 03/14/2024 10:28 AM [facility] Alkaline Phosphatase 57 42 - 121 unit/L LAB CHEMISTRY METHOD 03/14/2024 10:28 AM [facility] Blood Venous blood specimen / Unknown Venipuncture / Unknown 03/14/2024 8:14 AM EST 03/14/2024 8:14 AM EST us Mike OLSEN LAB BLOOD ORDERABLES Erma brown Result [facility] [address] [place] [address], * (ABNORMAL) Basic metabolic panel (03/14/2024 8:14 AM EST) Sodium 140 133 - 145 mmol/L LAB CHEMISTRY METHOD 03/14/2024 10:28 AM [facility] Potassium 4.2 3.5 - 5.5 mmol/L LAB CHEMISTRY METHOD 03/14/2024 10:28 AM [facility] Chloride 108 96 - 110 mmol/L LAB CHEMISTRY METHOD 03/14/2024 10:28 AM [facility] CO2 28 21 - 32 mmol/L LAB CHEMISTRY METHOD 03/14/2024 10:28 AM [facility] Anion Gap 4 3 - 11 LAB CHEMISTRY METHOD 03/14/2024 10:28 AM [facility] Glucose 96 70 - 100 mg/dL LAB CHEMISTRY METHOD 03/14/2024 10:28 AM [facility] BUN 13 5 - 25 mg/dL LAB CHEMISTRY METHOD 03/14/2024 10:28 AM [facility] Creatinine 0.57(L) 0.70 - 1.30 mg/dL LAB CHEMISTRY METHOD 03/14/2024 10:28 AM [facility] eGFR 110 >=60 mL/min/1. 73m2 LAB CHEMISTRY METHOD 03/14/2024 10:28 AM [facility] Comment:Calculation based on the??Chronic Kidney Disease Epidemiology Collaboration (CKD-EPI) equation refit??without adjustment for race. BUN/Creatinine Ratio 22.8 LAB CHEMISTRY METHOD 03/14/2024 10:28 AM [facility] Calcium 8.9 8.5 - 10.5 mg/dL LAB CHEMISTRY METHOD 03/14/2024 10:28 AM [facility] Blood Venous blood specimen / Unknown Venipuncture / Unknown 03/14/2024 8:14 AM EST 03/14/2024 8:14 AM EST Mike OLSEN LAB BLOOD ORDERABLES Erma brown Result [facility] [address] [place] [address], * Colonoscopy (05/26/2020) Colonoscopy No interpreta tion,abstr acted Anatomical Region Laterality Modality Other Historical Provider HEALTH MAINTENANCE Final Result from Last 3 Months or Most Recently Relevant to Health Maintenance Insurance [facility] Care Teams Manager Training And Development Relationship Specialty Start Date End Date Mike Watson PA [address] [place] [address] PCP - General Internal Medicine 01/31/24
--- OUTSIDE RECORDS SUMMARY | 2024-06-10 14:33 | XMS_ITS | Clinical Summary ---
Author Organization [facility], Address [address] [place] [address] [place] [address] Phone Care Team Providers Care Mother Repairer Name Role Phone Hossein Marion MD Primary Care Provider [phone] Allergies Active Allergy Reactions Criticality Noted Date [...] Due Date Last Done Comments Pneumococcal Vaccine: 50+ Years (1 of 2 - PCV) 980 Colorectal Cancer Screening: Annual FOBT 2009 Colorectal Cancer Screening: Colonoscopy 2009 Colorectal Cancer Screening: Sigmoidoscopy 2009 Hepatitis B Vaccine (1 of 3 - Risk 3-dose series) 09/2020 Influenza Vaccine (Season Ended) 2024 01/22/20 18 Insurance [facility] Care Teams Mother Repairer Relationship Specialty Start Date End Date Hossein Marion MD PCP - General Internal Medicine 04/07/21
--- OUTSIDE RECORDS SUMMARY | 2024-06-10 14:33 | XMS_ITS | Referral Summary ---
Author Organization [facility] Address [address] [place] [address] Care Team Providers Care Fire Hydrant Mechanic Name Role Phone Doni RUSSO MD, Hossein Luz Primary Care Provider [phone] Medications albuterol 2.5 mg/3 mL (0.083%) nebulizer [...] Plan of Treatment Not on file Insurance [facility] Care Teams Fire Hydrant Mechanic Relationship Specialty Start Date End Date Hossein Marion III, MD PCP - General Internal Medicine 04/20/21
== END 2024-06-10 13:23 | disposition home or self-care (01) ==
LOC: HO.HPS 12:42
PROVIDERS: PCP Physician Assistant Medical; Visit Provider Internal Medicine Pulmonary Disease
DX: J84.9 Interstitial pulmonary disease, unspecified (principal)
CPT/HCPCS: 99214

== ENCOUNTER 2024-06-27 13:41 | Outpatient (AMB) | payer OTHER, SELFPAY ==
[2022-12-18 15:57] VITALS: BMI 28.8
--- OUTSIDE RECORDS SUMMARY | 2024-06-27 13:46 | XMS_ITS | Clinical Summary ---
Author Organization [facility] Address [address] [place] [address] Care Team Providers Care Chart Reader Name Role Phone Mike Watson Primary Care Provider [phone] Medications albuterol 2.5 mg/3 mL (0.083%) nebulizer [...] 2:43 PM EDT Sexual Orientation Straight 05/29/2021 2 :43 PM EDT Last Filed Vital Signs Vital [...] 11/28/2021 9:47 AM EDT Plan of Treatment Upcoming Encounters Date Type Department Care Team (Late st Contact Info) Description 07/30/2024 3:00 PM EDT Office Visit [facility] [address] [place] [address] [phone] Advertising Production Manager: Gilberto Ortiz MD [address] [place] [phone] Health Maintenance Due Date Last Done Comments Cologuard 1960 Colon Cancer Screening 1960 Colonoscopy 1960 FOBT / Fit Test 1960 HIV Screening 1960 Sigmoidoscopy 1960 RSV Vaccine (60+ years old and patients) (1 - Risk 60-74 years 1-dose series) 2020 Pneumococcal Vaccine: 50+ Years (2 of 2 - PCV) 12/02/2022 12/02/2021 Alcohol/Substance Use Screening 02/13/2024 Depression Screening and Follow-Up 02/13/2024 Social Drivers of Health Annual Screening 02/13/2024 COVID-19 Vaccine (8 - Moderna risk 2023- season) 2024 10/24/2023, 06/15/2022, 11/20/2021, Additional history exists DTaP,Tdap,and Td Vaccines (3 - Td or Tdap) 12/03/2031 12/02/2021, 03/05/2009 Hepatitis C Screening Completed 04/07/2021 Zoster Vaccines Completed 07/19/2021, 05/13/2021 Influenza Vaccine Completed 10/24/2023, , 10/21/2019, Additional history exists Hepatitis B Vaccines Aged Out No long er eligible based on patient's age to complete this topic Insurance [facility] Care Teams Chart Reader Relationship Specialty Start Date End Date Mike Watson [address] [place] [phone] PCP - General Internal Medicine 06/13/24
--- OUTSIDE RECORDS SUMMARY | 2024-06-27 13:46 | XMS_ITS | Clinical Summary ---
Author Organization [facility] Address [address] [place] [id number] Care Team Providers Care Minibus Driver Name Role Phone Sussy Thurston DO Primary [...] Group Subscriber ID Effective Dates Phone Address [facility] [id number] 2020-Present [address] [facility] [address] [place] [address] HMO Care Teams Minibus Driver Relationship Specialty Start Date End Date Sussy Thurston DO PCP - General Store Administrator 04/21/20
--- OUTSIDE RECORDS SUMMARY | 2024-06-27 13:46 | XMS_ITS | Clinical Summary ---
Author Organization [facility] [employer] [facility] Address [address] [address] Phone Support Name Relationship Address Phone Mike Hammer Brother [address] [place] [address] Kareen Hammer Extended family member Unknown + Care Team Providers Care Youth Liaison Officer Name Role Phone Mike Watson Primary Care Provider [phone] Allergies Active Allergy Reactions Criticality Noted Date Comments Baclofen Low 09/21/2021 Other Reaction(s): RASH, BLISTERING nightmares Codeine Nausea And Vomiting High 10/18/2018 Fluconazole Other Low 12/22/2020 Other Reaction(s): RASH, BLISTERING blisters Gluten GI intolerance 08/14/2022 Oxycodone Nausea And Vomiting 04/21/2020 Oxycodone-Acetaminophe n Nausea And Vomiting 05/28/2013 Tizanidine Nausea And Vomiting Low 10/29/2020 Other Reaction(s): NAUSEA & VOMITING/ RASH, BLISTERING Medications acetaminophen (TYLENOL) 500 mg tablet Take 1 [...] (eight) hours if needed. 07/19/19 24 Active diclofenac (VOLTAREN) 1 % topical [...] DAY 90 tablet 1 05/16/19 25 Active omeprazole (PriLOSEC) [address] capsule TAKE ONE CAPSULE BY MOUTH EVERY DAY 90 capsule 1 06/24/19 25 Active cetirizine (ZyrTEC) 10 mg tablet TAKE ONE TABLET BY MOUTH EVERY DAY 90 tablet 1 06/28/19 25 Active omeprazole (PriLOSEC) [address] capsule TAKE ONE CAPSULE BY MOUTH EVERY DAY 90 capsule 1 12/24/19 24 025 Discontinued cetirizine (ZyrTEC) 10 mg tablet TAKE ONE TABLET BY MOUTH EVERY DAY 90 tablet 1 12/31/19 24 025 Discontinued Active Problems Problem Noted [...] S/HCC V28) 01/31/2021 Overview (12/24/2023): Follows with [facility] Pulm Evaluated by [facility] pulmonology who recommended referral to [facility] CAD (coronary artery disease) 10/29/2020 Overview (12/24/2023): [...] and the less than 0.1% risk for [place], stroke or . The patient understands and [...] and differential; Future Hydronephrosis 10/29/2020 Ankylosing spondylitis ([facility] V24, [facility] V28 ) 2018 Overview (12/24/2023): Following with [...] PM EDT Hospital Encounter Radiology Department - [address] [phone] Elevated LFTs Discharge Disposition: Home or Self Care 04/21/2024 1:00 PM EDT Office Visit Adult Medicine [address] [phone] Mike Watson PA ILD (interstitial lung disease) [...] situ 04/16/2024 8:10 AM EST Office Visit [facility] [address] [place] [address] Mey Irwin NP Coronary artery disease involving [place] coronary artery of [place] heart without angina pectoris (Primary Dx); Primary hypertension; Aneurysm of ascending aorta without rupture ([facility]/HCC V24); Hypercholesterolemi a from Last 3 Months [...] Site/Laterality Comments OTHER SURGICAL HISTORY 09/12/2013 PROCEDURE: IA PYELOTOMY WITH REMOVAL CALCULUS; COMMENT: cystoscopic Dr. Garcia ESOPHAGOGASTRODUODENOSCOPY 02/13/2012 PROCEDURE: IA EGD TRANSORAL BIOPSY SINGLE/MULTIPLE; COMMENT: furrows in the esophagus, bx: Eosinophilic esophagitis COLONOSCOPY 05/26/2020 N/A PROCEDURE: HISTORICAL COLONOSCOPY; COMMENT: Diminutive colonic polyps x2: Hyperplastic x1, SSA x1. CARDIAC CATHETERIZATION DONE ON 02/14/2024 AT [facility] INDICATIONS:Abnormal Coronary CTA Medical History Medical History [...] Record ed Within the last 3 months, tristan powell many times did you visit the emergency [...] for your loved ones. For example, child care counselor or elderly care for an older adult? [...] Description 07/03/2024 12:30 PM EDT Ancillary Procedure [facility] Cardiology [facility] [address] [place] [address] 10/22/2024 10:45 AM EDT Office Visit Adult Medicine [facility] [address] [place] [address] Mike Watson PA [address] [place] [address] 10/24/2024 2:40 PM EDT Office Visit [facility] Cardiology [facility] [address] [place] [address] Ida Caldwell NP [address] [place] [address] [place] [address] Health Maintenance Due Date Last Done Comments [...] 8:42 AM EST Coronary artery disease involving [place] coronary artery of [place] heart without angina pectoris CBC WITH AUTO DIFFERENTIAL Routine 04/10/2024 8:23 AM EST Folic acid deficiency PROTHROMBIN TIME WITH INR Routine 04/10/2024 8:23 AM EST Coronary atherosclerosis of [place] coronary artery FOLATE Routine 04/10/2024 8:23 AM EST Folic acid deficiency CBC AND DIFFERENTIAL Routine 04/10/2024 8:23 AM EST Folic acid deficiency GAMMA GLUTAMYL TRANSFERASE Routine 04/10/2024 8:23 AM EST Folic acid deficiency COMPREHENSIVE METABOLIC PANEL Routine 04/10/2024 8:23 AM EST Folic acid deficiency HM COLONOSCOPY Routine 05/26/2020 from Last 3 Months or Most Recently Relevant to Health Maintenance Results * Hepatitis C antibody (04/30/2024 8:11 AM EDT) [facility] Hepatitis C Antibody Negative Negative LAB CHEMISTRY METHOD 04/30/2024 11:[address] [facility] Blood Venous blood specimen / Unknown Venipuncture / Unknown 04/30/2024 8:11 AM EDT 04/30/2024 8:11 AM EDT Mike OLSEN LAB BLOOD ORDERABLES Erma l Result Performing Organization Address [facility] de Phone Number [facility] [address] [place] [address], [place] [phone] * Hepatitis B surface antigen with reflex to confirmation (04/30/2024 8:11 AM EDT) [facility] Hepatitis B Surface Ag Negative Negative LAB CHEMISTRY METHOD 04/30/2024 11:[address] [facility] Blood Venous blood specimen / Unknown Venipuncture / Unknown 04/30/2024 8:11 AM EDT 04/30/2024 8:[address] [facility] - 04/30/2024 11:19 AM EDT Over the counter supplements containing high doses of biotin may interfere with this assay. ??If interference is suspected, patients shoud be retested after refraining from biotin supplements for 72 hours. Mike OLSEN LAB BLOOD ORDERABLES Erma l Result [facility] [address] [place] [address], [place] [phone] * Lipid panel with reflex to direct LDL (04/30/2024 8:11 AM EDT) Cholesterol 100 0 - 200 mg/dL LAB CHEMISTRY METHOD 04/30/2024 11:[address] [facility] Triglycerides 35 0 - 150 mg/dL LAB CHEMISTRY METHOD 04/30/2024 11:[address] [facility] HDL 67 >=40 mg/dL LAB CHEMISTRY METHOD 04/30/2024 11:[address] [facility] LDL Calculated 26 0 - 100 mg/dL LAB CHEMISTRY METHOD 04/30/2024 11:[address] [facility] VLDL Cholesterol Vasu 7 mg/dL LAB CHEMISTRY METHOD 04/30/2024 11:[address] [facility] Non HDL Chol. (LDL+VLDL) 33 <145 mg/dL LAB CHEMISTRY METHOD 04/30/2024 11:[address] [facility] Chol/HDL Ratio 1.5 0.0 - 4.4 LAB CHEMISTRY METHOD 04/30/2024 11:[address] [facility] Blood Venous blood specimen / Unknown Venipuncture / Unknown 04/30/2024 8:11 AM EDT 04/30/2024 8:11 AM EDT Mike OLSEN LAB BLOOD ORDERABLES Erma l Result [facility] [address] [place] [address], [place] [phone] * Hepatitis A antibody total with reflex IgM (04/30/2024 8:11 AM EDT) Pathologist [facility] Hep A Total Ab Negative Negative LAB CHEMISTRY METHOD 04/30/2024 12:[address] [facility] Blood Venous blood specimen / Unknown Venipuncture / Unknown 04/30/2024 8:11 AM EDT 04/30/2024 8:[address] [facility] - 04/30/2024 12:18 PM EDT Over the counter supplements containing high doses of biotin may interfere with this assay. ??If interference is suspected, patients shoud be retested after refraining from biotin supplements for 72 hours. us Mike OLSEN LAB BLOOD ORDERABLES Erma brown Result [facility] [address] [place] [address], * (ABNORMAL) CBC auto differential (04/30/2024 8:11 AM EDT) Only the most recent of2 resultswithin the time period is included. WBC 4.4(L) 4.8 - 10.8 K/mcL LAB HEMETOLOGY METHOD 04/30/2024 10:[address] [facility] RBC 4.00(L) 4.50 - 5.50 M/mcL LAB HEMETOLOGY METHOD 04/30/2024 10:[address] [facility] Hemoglobin 13.7 13.5 - 17.5 g/dL LAB HEMETOLOGY METHOD 04/30/2024 10:[address] [facility] Hematocrit 41.9(L) 42.0 - 54.0 % LAB HEMETOLOGY METHOD 04/30/2024 10:[address] [facility] MCV 106.1(H) 79.0 - 98.0 FL LAB HEMETOLOGY METHOD 04/30/2024 10:[address] [facility] MCH 34.7(H) 27.0 - 32.0 pcg LAB HEMETOLOGY METHOD 04/30/2024 10:[address] [facility] MCHC 32.7 32.0 - 37.0 g/dL LAB HEMETOLOGY METHOD 04/30/2024 10:41 AM [facility] RDW 12.3 11.0 - 15.0 % LAB HEMETOLOGY METHOD 04/30/2024 10:41 AM [facility] Platelets 179 130 - 400 K/mcL LAB HEMETOLOGY METHOD 04/30/2024 10:41 AM [facility] MPV 9.6 7.0 - 11.0 FL LAB HEMETOLOGY METHOD 04/30/2024 10:41 AM [facility] NRBC 0.0 <1.0 % LAB HEMETOLOGY METHOD 04/30/2024 10:41 AM [facility] NRBC Absolute 0.00 <0.10 K/mcL LAB HEMETOLOGY METHOD 04/30/2024 10:41 AM [facility] Neutrophils Relative 61.1 % LAB HEMETOLOGY METHOD 04/30/2024 10:41 AM [facility] Lymphocytes Relative 21.3 % LAB HEMETOLOGY METHOD 04/30/2024 10:41 AM [facility] Monocytes Relative 11.0 % LAB HEMETOLOGY METHOD 04/30/2024 10:41 AM [facility] Eosinophils Relative 3.4 % LAB HEMETOLOGY METHOD 04/30/2024 10:41 AM [facility] Basophils Relative 1.4 % LAB HEMETOLOGY METHOD 04/30/2024 10:41 AM [facility] Immature Granulocytes Relative 1.8 % LAB HEMETOLOGY METHOD 04/30/2024 10:41 AM [facility] Neutrophils Absolute 2.67 1.50 - 7.00 K/mcL LAB HEMETOLOGY METHOD 04/30/2024 10:41 AM [facility] Lymphocytes Absolute 0.93(L) 1.00 - 5.00 K/mcL LAB HEMETOLOGY METHOD 04/30/2024 10:[address] [facility] Monocytes Absolute 0.48 0.20 - 1.00 K/[facility] LAB HEMETOLOGY METHOD 04/30/2024 10:[address] [facility] Eosinophils Absolute 0.15 0.00 - 0.50 K/[facility] LAB HEMETOLOGY METHOD 04/30/2024 10:[address] [facility] Basophils Absolute 0.06 0.00 - 0.20 K/[facility] LAB HEMETOLOGY METHOD 04/30/2024 10:[address] [facility] Immature Granulocytes Absolute 0.08(H) 0.00 - 0.03 K/[facility] LAB HEMETOLOGY METHOD 04/30/2024 10:[address] [facility] Blood Venous blood specimen / Unknown Venipuncture / Unknown 04/30/2024 8:11 AM EDT 04/30/2024 8:11 AM EDT Mike OLSEN LAB BLOOD ORDERABLES Erma l Result [facility] [address] [place] [address], * Hepatitis B core antibody, total (04/30/2024 8:11 AM EDT) Pathologist [facility] Hep B Core Total Ab Negative Negative LAB CHEMISTRY METHOD 04/30/2024 12:[address] [facility] Blood Venous blood specimen / Unknown Venipuncture / Unknown 04/30/2024 8:11 AM EDT 04/30/2024 8:11 AM EDT Mike OLSEN LAB BLOOD ORDERABLES Erma l Result [facility] [address] [place] [address], [place] [phone] * Antimitochondrial antibody (04/30/2024 8:11 AM EDT) Mitochondrial Antibody Quantitative 2.6 <=20.0 units LAB CHEMISTRY METHOD 05/07/2024 1:[address] [facility] Mitochondrial Antibody Qualitative Negative Negative LAB CHEMISTRY METHOD 05/07/2024 1:[address] [facility] Blood Venous blood specimen / Unknown Venipuncture / Unknown 04/30/2024 8:11 AM EDT 04/30/2024 8:11 AM EDT us Mike OLSEN LAB BLOOD ORDERABLES Erma l Result [facility] [address] [place] [address], [place] [phone] * Hepatitis B surface antibody (04/30/2024 8:11 AM EDT) Pathologist [facility] Hepatitis B Surface Ab Negative Negative LAB CHEMISTRY METHOD 04/30/2024 11:[address] [facility] Hepatitis B Surface Ab Quantitative <3.1 mIU/mL LAB CHEMISTRY METHOD 04/30/2024 11:[address] [facility] Blood Venous blood specimen / Unknown Venipuncture / Unknown 04/30/2024 8:11 AM EDT 04/30/2024 8:[address] [facility] - 04/30/2024 11:09 AM EDT >=10 mIU/mL is considered to be consistent with immunity. Mike OLSEN LAB BLOOD ORDERABLES Erma l Result [facility] [address] [place] [address], [place] [phone] * Hemoglobin A1c (04/30/2024 8:11 AM EDT) Hemoglobin A1C 5.6 <6.5 % LAB CHEMISTRY METHOD 04/30/2024 12:[address] [facility] Mean Bld Glu Estim. 114 mg/dL LAB CHEMISTRY METHOD 04/30/2024 12:[address] [facility] Blood Venous blood specimen / Unknown Venipuncture / Unknown 04/30/2024 8:11 AM EDT 04/30/2024 8:11 AM EDT [facility] LAB BLOOD ORDERABLES Erma l Result Performing Organization Address [facility] Co de Phone Number [facility] [address] [place] [address], [place] [phone] * (ABNORMAL) GGT (04/30/2024 8:11 AM EDT) Only the most recent of2 resultswithin the time period is included. GGT 69(H) 7 - 64 unit/L LAB CHEMISTRY METHOD 04/30/2024 11:[address] [facility] Blood Venous blood specimen / Unknown Venipuncture / Unknown 04/30/2024 8:11 AM EDT 04/30/2024 8:11 AM EDT [facility] LAB BLOOD ORDERABLES Erma l Result Performing Organization Address City/[facility]/ZIP Co de Phone Number [facility] [address] [place] [address], [place] [phone] * Folate (04/30/2024 8:11 AM EDT) Only the most recent of2 resultswithin the time period is included. Folate 8.0 2.8 - 17.0 ng/ml LAB CHEMISTRY METHOD 04/30/2024 11:[address] [facility] Blood Venous blood specimen / Unknown Venipuncture / Unknown 04/30/2024 8:11 AM EDT 04/30/2024 8:11 AM EDT us Mike OLSEN LAB BLOOD ORDERABLES Erma l Result [facility] [address] [place] [address], [place] [phone] * (ABNORMAL) Comprehensive metabolic panel (04/30/2024 8:11 AM EDT) Only the most recent of2 resultswithin the time period is included. Sodium 143 133 - 145 mmol/L LAB CHEMISTRY METHOD 04/30/2024 11:11 AM [facility] Potassium 4.5 3.5 - 5.5 mmol/L LAB CHEMISTRY METHOD 04/30/2024 11:11 AM [facility] Chloride 107 96 - 110 mmol/L LAB CHEMISTRY METHOD 04/30/2024 11:11 AM [facility] CO2 31 21 - 32 mmol/L LAB CHEMISTRY METHOD 04/30/2024 11:11 AM [facility] Anion Gap 5 3 - 11 LAB CHEMISTRY METHOD 04/30/2024 11:11 AM [facility] Glucose 93 70 - 100 mg/dL LAB CHEMISTRY METHOD 04/30/2024 11:11 AM [facility] BUN 14 5 - 25 mg/dL LAB CHEMISTRY METHOD 04/30/2024 11:11 AM [facility] Creatinine 0.73 0.70 - 1.30 mg/dL LAB CHEMISTRY METHOD 04/30/2024 11:11 AM [facility] eGFR 102 >=60 mL/min/1. 73m2 LAB CHEMISTRY METHOD 04/30/2024 11:11 AM [facility] Comment:Calculation based on the??Chronic Kidney Disease Epidemiology Collaboration (CKD-EPI) equation refit??without adjustment for race. BUN/Creatinine Ratio 19.2 LAB CHEMISTRY METHOD 04/30/2024 11:11 AM [facility] Calcium 9.0 8.5 - 10.5 mg/dL LAB CHEMISTRY METHOD 04/30/2024 11:11 AM [facility] AST (SGOT) 82(H) 10 - 42 unit/L LAB CHEMISTRY METHOD 04/30/2024 11:11 AM [facility] ALT (SGPT) 160(H) 10 - 60 unit/L LAB CHEMISTRY METHOD 04/30/2024 11:11 AM [facility] Alkaline Phosphatase 55 42 - 121 unit/L LAB CHEMISTRY METHOD 04/30/2024 11:11 AM [facility] Total Protein 5.8(L) 6.0 - 8.0 g/dL LAB CHEMISTRY METHOD 04/30/2024 11:11 AM [facility] Albumin 3.4 3.2 - 5.0 g/dL LAB CHEMISTRY METHOD 04/30/2024 11:11 AM [facility] Total Bilirubin 1.2 0.0 - 1.4 mg/dL LAB CHEMISTRY METHOD 04/30/2024 11:11 AM [facility] Blood Venous blood specimen / Unknown Venipuncture / Unknown 04/30/2024 8:11 AM EDT 04/30/2024 8:11 AM EDT us Mike OLSEN LAB BLOOD ORDERABLES Erma l Result [facility] [address] [place] [address], * US Abdomen Limited (04/30/2024 7:55 AM EDT) Anatomical Region Laterality Modality Body Ultrasound 04/30/2024 10:4 0 AM EDT Impressions 04/30/2024 10:47 AM EDT Echogenic hepatic parenchyma which is commonly seen with steatosis and can also be present with chronic hepatocellular disease. POS [id number] -------- FINAL REPORT -------- Dictated By: Dahlia Schmidt Dictated Date: 04/30/2024 10:40 ET Assigned Physician: Dahlia Schmidt Reviewed and Electronically Signed By: Dahlia Schmidt Signed Date: 04/30/2024 10:47 ET Workstation ID: [id number] Transcribed By: Self Edit Transcribed Date: 04/30/2024 [...] the main portal vein. Procedure Note Dahlia Schmidt MD - 04/30/2024 EXAM: Abdomen ultrasound, limited [...] be present with chronic hepatocellular disease. POS [id number] -------- FINAL REPORT -------- Dictated By: Dahlia Schmidt Dictated Date: 04/30/2024 10:40 ET Assigned Physician: Dahlia Schmidt Reviewed and Electronically Signed By: Dahlia Schmidt Signed Date: 04/30/2024 10:47 ET Workstation ID: [id number] Transcribed By: Self Edit Transcribed Date: 04/30/2024 10:40 ET Mike OLSEN IMG US PROCEDURES Final R esult * ECG 12 lead (04/16/2024 8:42 AM EST) Ventricular Rate ECG 69 BPM GEMUSE Atrial Rate 69 BPM GEMUSE P-R Interval 152 ms GEMUSE QRS Duration 96 ms GEMUSE Q-T Interval 384 ms GEMUSE QTc 411 ms GEMUSE P Wave Vanlue 50 degrees GEMUSE R [place] 66 degrees GEMUSE T [place] 66 degrees GEMUSE ECG Interpretation Sinus rhythm with Premature atrial complexes Otherwise normal ECG When compared with ECG of 31-JAN-2024 11:09, Premature atrial complexes are now Present Confirmed by Emely MARTÍNEZ JAMES ([id number]) on 04/16/2024 12:31:05 PM GEMUSE 04/16/2024 8:26 AM EST 04/16/2024 12:31 PM EST Mey Irwin TUNNELING MACHINE OPERATOR ECG ORDERABLES Edited Resu lt - Final GEMUSE * Prothrombin time with INR (04/10/2024 8:23 AM EST) Protime 12.9 10.6 - 13.9 sec LAB COAGULATION METHOD 04/10/2024 9:[address] [facility] INR 1.0 LAB COAGULATION METHOD 04/10/2024 9:[address] [facility] Blood Venous blood specimen / Unknown Venipuncture / Unknown 04/10/2024 8:23 AM EST 04/10/2024 9:02 AM EST Mey Irwin TUNNELING MACHINE OPERATOR LAB BLOOD ORDERABLES Final Result [facility] [address] [place] [address], [place] [phone] * Colonoscopy (05/26/2020) Colonoscopy No interpreta tion,abstr acted Anatomical Region Laterality Modality Other us Historical Provider HEALTH MAINTENANCE Final Result from Last 3 Months or Most Recently Relevant to Health Maintenance Insurance [facility] [id number] [place] [address] Care Teams Youth Liaison Officer Relationship Specialty Start Date End Date Mike Watson PA [address] [place] [id number] PCP - General Internal Medicine 01/31/24
--- OUTSIDE RECORDS SUMMARY | 2024-06-27 13:46 | XMS_ITS | Encounter Summary ---
Author Organization [facility], Address [address] [place] [address] Phone Care Team Providers Care Front End Mechanic Name Role Phone Hossein Marion MD Primary Care Provider [phone] Encounter Details Date Type Department Care Team (Late st Contact Info) Description 04/20/2021 Documentation Only [facility], [address] [place] [phone] Mani Bedolla MD [address] [place] [phone] Social History Tobacco Use Types Packs/Day Years [...] on filedocumented in this encounter Care Teams Front End Mechanic Relationship Specialty Start Date End Date Hossein Marion MD PCP - General Internal Medicine 04/07/21 documented as of this encounter
--- OUTSIDE RECORDS SUMMARY | 2024-06-27 13:46 | XMS_ITS | Clinical Summary ---
Author Organization [facility], Address [address] [place] [address] [place] [address] Phone Care Team Providers Care Edge Bander Operator Name Role Phone Hossein Marion MD Primary Care Provider [phone] Allergies Active Allergy Reactions Criticality Noted Date [...] Vaccine (Season Ended) 2024 01/22/20 18 Insurance [facility] Care Teams Edge Bander Operator Relationship Specialty Start Date End Date Hossein Marion MD PCP - General Internal Medicine 04/07/21
--- OUTSIDE RECORDS SUMMARY | 2024-06-27 13:46 | XMS_ITS | Referral Summary ---
Author Organization [facility] Address [address] [place] [address] Care Team Providers Care Change Advisor Name Role Phone Mike Watson Primary Care Provider [phone] Medications albuterol 2.5 mg/3 mL (0.083%) nebulizer [...] Description 07/30/2024 3:00 PM EDT Office Visit [facility] [address] [place] [id number] Assembly Line Leader: Gilberto Ortiz MD [address] [place] [address] Insurance [facility] Care Teams Change Advisor Relationship Specialty Start Date End Date Mike Watson [address] [place] [id number] PCP - General Internal Medicine 06/13/24
[2024-06-27 14:00] VITALS: BP 142/78; PULSE 67; O2SAT 96; BMI 28.4
--- NOTE | 2024-06-27 14:00 | A.OFFVIS_ITS ---
Vital Signs 06/27/24 14:00 Height 6 ft 2 in Weight 221 lb BMI 28.4 BP 142/78 H Blood Pressure Location Rt brachial Position Sitting Pulse 67 Pulse Source Doppler Pulse Oximetry (%) 96 Oxygen Delivery Method Room Air Intake Visit Reasons: cough Allergies gluten Allergy (Severe, Verified 06/27/24 14:04) Diarrhea acetaminophen [From PERCOCET] Allergy (Unknown, Verified 06/27/24 14:04) VOMITING codeine [CODEINE] Allergy (Unknown, Verified 06/27/24 14:04) VOMITING oxycodone [From PERCOCET] Allergy (Unknown, Verified 06/27/24 14:04) VOMITING fluconazole Allergy (Verified 06/27/24 14:04) Unknown baclofen Adverse Reaction (Intermediate, Verified 06/27/24 14:04) Nightmare HPI HPI cough: Details: 63-year-old? gentleman, lifetime nonsmoker, with underlying history of ankylosing? spondylitis followed by Rheumatology now on biologic, initially followed? for organizing pneumonia, chronic productive cough, and dyspnea on? exertion.? Patient previously hospitalized at [facility] with fungal pneumonia with Kathy and Aspergillus noted on? bronchial alveolar lavage cultures.? 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 consolidation therapy.? He has been discharged on voriconazole 400 twice a day and had i mproved symptom control, however he developed allergic reaction and required switching to IV micafungin.? He has had a total of 12 weeks weeks of IV micafungin therapy with significant improvement in his dyspnea and resolution of his productive cough.? Thereafter his PICC line was discontinued in January of 2021 and he completed pulmonary rehab.?Patient was switched to azathioprine and titrated slowly up to 200 mg daily with good control of his underlying pulmonary symptoms and titration off his chronic prednisone. Previously patient symptoms improved significantly on prednisone taper, however as patient has finished his prednisone taper his symptoms have recurred. He did have follow-up CT chest that showed essentially stable findings over the last 3 years, and specifically no worsening of his underlying interstitial lung disease. Thereafter, patient was tried on methotrexate and was titrated up to 10 mg weekly with only partial response including significant improvement in his cough, but worsening side effects including significant stiffness and slowly worsening dyspnea. After the last office visit patient was tried on mycophenolate mofetil up to 1 mg twice a day, with worsening symptom control. [facility] Medical History Blister (nonthermal) of other finger, initial encounter Upper airway cough syndrome COVID-19 vaccine series completed ILD (interstitial lung disease) Ankylosing spondylitis Thoracic outlet syndrome COPD (chronic obstructive pulmonary disease) Acute hyponatremia Ankylosing spondylitis Chronic cough Organizing pneumonia Dyspnea on exertion Pneumonia Bronchitis GERD (gastroesophageal reflux disease) Hyperlipidemia Pulmonary nodules Social History Household Members: None Housing: House Do you presently have visiting nurse or other home services: No Alcohol intake: never Patient Tobacco Use Status: Never used Tobacco Second Hand Smoke Exposure: Yes (35 yr exposure at home) Advance Directives Date on File: 07/29/20 service: No Current occupational status: employed Review [employer] Const Denies daytime sleepiness, Denies excessive sweating, Denies fatigue, Denies fever(s), Denies lethargy, Denies malaise, Denies night sweats, Denies snoring and Denies weight loss Eyes Denies blurry vision and Denies itchy eyes ENT Denies nasal congestion, Denies post nasal drip, Denies sinus pain, Denies sinus pressure and Denies other ( Thrush) Card Denies chest pain, Denies pedal edema, Denies dyspnea, Reports dyspnea on exertion, Denies orthopnea and Denies paroxysmal nocturnal dyspnea Resp Reports cough, Denies hemoptysis, Denies excessive phlegm production, Denies dyspnea, Reports dyspnea on exertion, Denies snoring and Denies wheezing GI Denies abdominal pain and Denies heartburn Musc Denies myalgias, Denies arthralgias and Denies joint swelling Skin/Breast Denies rash Neuro Denies memory loss and Denies seizure-like activity Psych Denies abnormal sleep pattern, Denies anxiety and Denies memory loss Endo Denies excessive sweating, Denies fatigue and Denies heat intolerance Yusuf/Lymph Denies easy bruising Aller/Immun Denies itchy eyes, Denies seasonal rhinorrhea and Denies wheezing Physical Exam Vital Signs: Last Vital Signs Pulse 67 06/27/24 14:00 BP 142/78 H 06/27/24 14:00 Pulse Ox 96 06/27/24 14:00 Oxygen Delivery Method Room Air 06/27/24 14:00 BMI result Body Mass Index 28.4 Const General: no acute distress and alert Nutritional Appearance: not obese Orientation/consciousness: Other orientation findings ( oriented) HEENT Head: Yes atraumatic Eyes General: appearance normal, both eyes and all related structures Sclerae: sclerae normal EOM: EOMs intact bilaterally Neck Neck: Yes supple Lymphatic: no lymphadenopathy noted Resp Effort & Inspection: normal respiratory effort and no use of accessory muscles Auscultation: clear to auscultation bilaterally Cardio Rate: regular rate Rhythm: regular rhythm Heart sounds: no gallops, no murmurs and no rubs Skin General skin exam: other ( warm) Extrem General: No clubbing, No cyanosis and No edema Assessment & Plan Assessment & Plan (1) ILD (interstitial lung disease): Code(s): J84.9 - Interstitial pulmonary disease, unspecified Category: Medical (2) Cough: Code(s): R05.9 - Cough, unspecified Category: Medical Plan Previously controlled on that azathioprine, recently with worsening symptoms. Tried on methotrexate and mycophenolate famotidine with suboptimal control. Will start on prednisone 40 mg daily. Will await tertiary evaluation. May consider Rituxan. Medications: New prednisone 40 mg (4 x 10 mg) PO DAILY 30 days 120 tabs 1RF Discontinued mycophenolate mofetil Discontinued Reason: Doctor's Order 1,000 mg (2 x 500 mg) PO BID 30 days 120 tabs 3RF Coding Level of Care Code Est Pt Level 4 (85327) Complex EM visit Add On G2211 Diagnoses ILD (interstitial lung disease) J84.9 Cough R05.9
== END 2024-06-27 14:14 | disposition home or self-care (01) ==
LOC: HO.HPS 13:42
PROVIDERS: PCP Physician Assistant Medical; Visit Provider Internal Medicine Pulmonary Disease
DX: J84.9 Interstitial pulmonary disease, unspecified (principal); R05.9 Cough, unspecified
CPT/HCPCS: 99214

== ENCOUNTER 2024-08-08 13:14 | Outpatient (AMB) | payer OTHER, SELFPAY ==
[2022-12-18 15:57] VITALS: BMI 28.8
[2024-08-08 13:24] VITALS: BP 160/62; PULSE 78; O2SAT 95; BMI 28.1
--- NOTE | 2024-08-08 13:24 | A.OFFVIS_ITS ---
Vital Signs 08/08/24 13:24 Height 6 ft 2 in Weight 219 lb BMI 28.1 BP 160/62 H Blood Pressure Location Rt brachial Position Sitting Pulse 78 Pulse Source Pulse Oximeter Pulse Oximetry (%) 95 Oxygen Delivery Method Room Air Intake Visit Reasons: Cough Allergies gluten Allergy (Severe, Verified 08/08/24 13:29) Diarrhea acetaminophen (From PERCOCET) Allergy (Unknown, Verified 08/08/24 13:29) VOMITING codeine (CODEINE) Allergy (Unknown, Verified 08/08/24 13:29) VOMITING oxycodone (From PERCOCET) Allergy (Unknown, Verified 08/08/24 13:29) VOMITING fluconazole Allergy (Verified 08/08/24 13:29) Unknown baclofen Adverse Reaction (Intermediate, Verified 08/08/24 13:29) Nightmare HPI HPI Cough: Details: 63-year-old? gentleman, lifetime nonsmoker, with underlying history of ankylosing? spondylitis followed by Rheumatology now on biologic, initially followed? for organizing pneumonia, chronic productive cough, and dyspnea on? exertion.? Patient previously hospitalized at [facility] with fungal pneumonia with Kathy and Aspergillus noted on? bronchial alveolar lavage cultures.? 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 consolidation therapy.? He has been discharged on voriconazole 400 twice a day and had improved symptom control, however he developed allergic reaction and required switching to IV micafungin.? He has had a total of 12 weeks weeks of IV micafungin therapy with significant improvement in his dyspnea and resolution of his productive cough.? Thereafter his PICC line was discontinued in January of 2021 and he completed pulmonary rehab.?Patient was switched to azathioprine and titrated slowly up to 200 mg daily with good control of his underlying pulmonary symptoms and titration off his chronic prednisone. Previously patient symptoms improved significantly on prednisone taper, however as patient has finished his prednisone taper his symptoms have recurred. He did have follow-up CT chest that showed essentially stable findings over the last 3 years, and specifically no worsening of his underlying interstitial lung disease. Thereafter, patient was tried on methotrexate and was titrated up to 10 mg weekly with only partial response including significant improvement in his cough, but worsening side effects including significant stiffness and slowly worsening dyspnea. He also was tried on mycophenolate mofetil up to 1 mg twice a day, with worsening symptom control. After the last office visit patient was started on prednisone 40 mg daily with significantly improved symptom control, however with side effect of tachycardia that is really annoying to him, when he comes down to low- dose of prednisone his dyspnea and cough start worsening. He is also undergoing tertiary evaluation at [facility]. [facility] Medical History Blister (nonthermal) of other finger, initial encounter Upper airway cough syndrome COVID-19 vaccine series completed ILD (interstitial lung disease) Ankylosing spondylitis Thoracic outlet syndrome COPD (chronic obstructive pulmonary disease) Acute hyponatremia Ankylosing spondylitis Chronic cough Organizing pneumonia Dyspnea on exertion Pneumonia Bronchitis GERD (gastroesophageal reflux disease) Hyperlipidemia Pulmonary nodules Social History Household Members: None Housing: House Do you presently have visiting nurse or other home services: No Alcohol intake: never Patient Tobacco Use Status: Never used Tobacco Second Hand Smoke Exposure: Yes (35 yr exposure at home) Advance Directives Date on File: 07/29/20 service: No Current occupational status: employed [employer] Const Denies daytime sleepiness, Denies excessive sweating, Denies fatigue, Denies fever(s), Denies lethargy, Denies malaise, Denies night sweats, Denies snoring and Denies weight loss Eyes Denies blurry vision and Denies itchy eyes ENT Denies nasal congestion, Denies post nasal drip, Denies sinus pain, Denies sinus pressure and Denies other ( Thrush) Card Denies chest pain, Denies pedal edema, Denies dyspnea, Reports dyspnea on exertion, Denies orthopnea and Denies paroxysmal nocturnal dyspnea Resp Reports cough, Denies hemoptysis, Denies excessive phlegm production, Denies dyspnea, Reports dyspnea on exertion, Denies snoring and Denies wheezing GI Denies abdominal pain and Denies heartburn Musc Denies myalgias, Denies arthralgias and Denies joint swelling Skin/Breast Denies rash Neuro Denies memory loss and Denies seizure-like activity Psych Denies abnormal sleep pattern, Denies anxiety and Denies memory loss Endo Denies excessive sweating, Denies fatigue and Denies heat intolerance Yusuf/Lymph Denies easy bruising Aller/Immun Denies itchy eyes, Denies seasonal rhinorrhea and Denies wheezing Physical Exam Vital Signs: Last Vital Signs Pulse 78 08/08/24 13:24 BP 160/62 H 08/08/24 13:24 Pulse Ox 95 08/08/24 13:24 Oxygen Delivery Method Room Air 08/08/24 13:24 BMI result Body Mass Index 28.1 Const General: no acute distress and alert Nutritional Appearance: not obese Orientation/consciousness: Other orientation findings ( oriented) HEENT Head: Yes atraumatic Eyes General: appearance normal, both eyes and all related structures Sclerae: sclerae normal EOM: EOMs intact bilaterally Neck Neck: Yes supple Lymphatic: no lymphadenopathy noted Resp Effort & Inspection: normal respiratory effort and no use of accessory muscles Auscultation: clear to auscultation bilaterally Cardio Rate: regular rate Rhythm: regular rhythm Heart sounds: no gallops, no murmurs and no rubs Skin General skin exam: other ( warm) Extrem General: No clubbing, No cyanosis and No edema Assessment & Plan Assessment & Plan (1) ILD (interstitial lung disease): Code(s): J84.9 - Interstitial pulmonary disease, unspecified Category: Medical (2) Cough: Code(s): R05.9 - Cough, unspecified Category: Medical Plan Appears to have interstitial lung disease likely related to underlying connective tissue disease with good response to systemic glucocorticoids, however with recurrence of symptoms with glucocorticoid taper and poor response to multiple steroid sparing agents. Also, with tachycardia is ascites act off medium dose of glucocorticoids. Will start on Toprol. Patient additionally is undergoing tertiary workup at [facility]. Will consider Rituxan, if no other tertiary input. Medications: New metoprolol succinate ER (Toprol XL) 50 mg PO DAILY 30 tabs 3RF Coding Level of Care Code Est Pt Level 4 (83877) Complex EM visit Add On G2211 Diagnoses ILD (interstitial lung disease) J84.9 Cough R05.9
--- OUTSIDE RECORDS SUMMARY | 2024-08-08 13:45 | XMS_ITS | Clinical Summary ---
Author Organization [facility] [employer] [facility] Address [address] [place] [address] Phone Support Name Relationship Address Phone Mike Hammer Brother [address] [place] [address] Kareen Hammer Extended family member Unknown + Care Team Providers Care Circulation Manager Name Role Phone Mike Watson Primary Care Provider [phone] Allergies Active Allergy Reactions Criticality Noted Date [...] 1 TABLET IN THE MORNING NEEDED Active fluticasone propionate (FLONASE) 50 mcg/actuation nasal [...] DAY 90 tablet 1 06/28/19 25 Active DILT-XR 120 mg 24 hr capsule TAKE ONE CAPSULE BY MOUTH EVERY DAY 90 capsule 2 08/09/19 25 Active DILT-XR 120 mg 24 hr capsule Take 1 capsule (120 mg total) by mouth 1 (one) time each day. 11/14/19 24 025 Discontinued Active Problems Problem Noted [...] aspirin and statin. Aneurysm of ascending aorta (CMS/[facility] V24) 2022 Overview (12/24/2023): Last Assessment & [...] S/HCC V28) 01/31/2021 Overview (12/24/2023): Follows with [facility] Pulm Evaluated by [facility] pulmonology who recommended referral to [facility] CAD (coronary artery disease) 10/29/2020 Overview (12/24/2023): [...] and the less than 0.1% risk for [place], stroke or . The patient understands and [...] Encounters Date Type Department Care Team Description 07/03/2024 12:30 PM EDT Ancillary Procedure [facility] [address] [place] [address] Coronary artery disease involving [place] coronary artery of [place] heart without angina pectoris from Last 3 Months Immunizations Name Administration [...] Pfizer (ages 12 & older) Bivalent, COVID-19 2 Pneumococcal polysaccharide 23 valent (Pneumovax 23) 2yo and older 12/02/2021 Td Tetanus diptheria (Tdvax) 7yo and older 12/02 Tdap Tetanus diptheria acell ular pertussis (Boostrix; Adacel) 7yo and older 03/05/2009 Zoster recombinant (Shingrix ) 19yo and older 07/19/2021,05/13/2021 Surgical History Surgery Date Site/Laterality Comments OTHER SURGICAL HISTORY 09/12/2013 PROCEDURE: [place] PYELOTOMY WITH REMOVAL CALCULUS; COMMENT: cystoscopic Dr. Garcia ESOPHAGOGASTRODUODENOSCOPY 02/13/2012 PROCEDURE: [place] EGD TRANSORAL BIOPSY SINGLE/MULTIPLE; COMMENT: furrows in the esophagus, bx: Eosinophilic esophagitis COLONOSCOPY 05/26/2020 N/A PROCEDURE: HISTORICAL COLONOSCOPY; COMMENT: Diminutive colonic polyps x2: Hyperplastic x1, SSA x1. CARDIAC CATHETERIZATION DONE ON 02/14/2024 AT [facility] INDICATIONS:Abnormal Coronary CTA Medical History Medical History [...] for your loved ones. For example, child and family therapist or elderly care for an older adult? [...] Sign Reading Time Taken Comments Blood Pressure 130/76 07/03/2024 12:53 PM EDT Pulse 64 04/21/2024 12:59 PM EDT Temperature 37.3 C (99.1 F) 04/21/2024 12:59 PM EDT Respiratory Rate 16 04/21/2024 12:59 PM EDT Oxygen Saturation 99% 04/16/2024 7:55 AM EST Inhaled Oxygen Concentration - - Weight 103 kg (228 lb) 07/03/2024 12:53 PM EDT Height 188 cm (6' 2 ) 07/03/2024 12:53 PM EDT Body Mass Index 29.27 07/03/2024 12:53 PM EDT Plan of Treatment Upcoming Encounters Date Type Department Care Team (Late st Contact Info) Description 10/22/2024 10:45 AM EDT Office Visit Adult Medicine [facility] [address] [place] [address] Mike Watson PA [address] [place] [address] 10/24/2024 2:40 PM EDT Office Visit [facility] [address] [place] [address] [place] [address] Ida Caldwell NP [address] [place] [address] [place] [address] Health Maintenance Due Date Last Done Comments [...] 12/02/2021 COVID-19 Vaccine (8 - Moderna risk season) 2024 10/24/2023, 06/15/2022, 11/20/2021, Additional history [...] Procedure Name Priority Date/Time Associated Diagnosis Comments HEPATITIS C ANTIBODY Routine 04/30/2024 8:11 AM EDT Aneurysm of ascending aorta without rupture ([facility] V24) Ankylosing spondylitis, unspecified site of spine (CMS/HCC V24, CMS/HCC V28) Stenosis of carotid artery, unspecified laterality Eosinophilic esophagitis Coronary artery disease due to lipid rich plaque Primary hypertension ILD (interstitial lung disease) (CMS/HCC V24, CMS/HCC V28) Hypercholesterolemi a Neurogenic thoracic outlet syndrome Neurostimulator device in situ COMPREHENSIVE METABOLIC PANEL Routine 04/30/2024 8:11 AM EDT Aneurysm of ascending aorta without rupture (CMS/HCC V24) Ankylosing spondylitis, unspecified site of spine (CMS/HCC V24, CMS/HCC V28) Stenosis of carotid artery, unspecified laterality Eosinophilic esophagitis Coronary artery disease due to lipid rich plaque Primary hypertension ILD (interstitial lung disease) (CMS/HCC V24, CMS/HCC V28) Hypercholesterolemi a Neurogenic thoracic outlet syndrome Neurostimulator device in [...] (interstitial lung disease) (CMS/HCC V24, CMS/HCC V28) Hypercholesterolemi a Neurogenic thoracic outlet syndrome Neurostimulator device in situ HM COLONOSCOPY Routine 05/26/2020 from Last 3 Months or Most Recently Relevant to Health Maintenance Results * Hepatitis C antibody (04/30/2024 8:11 AM EDT) Hepatitis C Antibody Negative Negative LAB CHEMISTRY METHOD 04/30/2024 11:48 AM EDT AUBREE [place] ([facility] Blood Venous blood specimen / Unknown Venipuncture / Unknown 04/30/2024 8:11 AM EDT 04/30/2024 8:11 AM EDT us Mike OLSEN LAB BLOOD ORDERABLES Erma l Result [facility] [address] [place] [address], [place] [phone] * Lipid panel with reflex to direct LDL (04/30/2024 8:11 AM EDT) Cholesterol 100 0 - 200 mg/dL LAB CHEMISTRY METHOD 04/30/2024 11:47 AM EDT [facility] Triglycerides 35 0 - 150 mg/dL LAB CHEMISTRY METHOD 04/30/2024 11:47 AM EDT [facility] HDL 67 >=40 mg/dL LAB CHEMISTRY METHOD 04/30/2024 11:47 AM EDT [facility] LDL Calculated 26 0 - 100 mg/dL LAB CHEMISTRY METHOD 04/30/2024 11:47 AM EDT [facility] VLDL Cholesterol Vasu 7 mg/dL LAB CHEMISTRY METHOD 04/30/2024 11:47 AM EDT [facility] Non HDL Chol. (LDL+VLDL) 33 <145 mg/dL LAB CHEMISTRY METHOD 04/30/2024 11:47 AM EDT [facility] Chol/HDL Ratio 1.5 0.0 - 4.4 LAB CHEMISTRY METHOD 04/30/2024 11:47 AM T [facility] Blood Venous blood specimen / Unknown Venipuncture / Unknown 04/30/2024 8:11 AM EDT 04/30/2024 8:11 AM EDT Mike OLSEN LAB BLOOD ORDERABLES Erma l Result [facility] [address] [place] [address], [place] [phone] * (ABNORMAL) Comprehensive metabolic panel (04/30/2024 8:11 AM EDT) Sodium 143 133 - 145 mmol/L LAB CHEMISTRY METHOD 04/30/2024 11:11 AM EDT [facility] Potassium 4.5 3.5 - 5.5 mmol/L LAB CHEMISTRY METHOD 04/30/2024 11:11 AM [facility] Chloride 107 96 - 110 mmol/L LAB CHEMISTRY METHOD 04/30/2024 11:11 AM [facility] CO2 31 21 - 32 mmol/L LAB CHEMISTRY METHOD 04/30/2024 11:11 AM [facility] Anion Gap 5 3 - 11 LAB CHEMISTRY METHOD 04/30/2024 11:11 AM [facility] Glucose 93 70 - 100 mg/dL LAB CHEMISTRY METHOD 04/30/2024 11:11 AM [facility] BUN 14 5 - 25 mg/dL LAB CHEMISTRY METHOD 04/30/2024 11:11 AM [facility] Creatinine 0.73 0.70 - 1.30 mg/dL LAB CHEMISTRY METHOD 04/30/2024 11:11 AM [facility] eGFR 102 >=60 mL/min/1. 73m2 LAB CHEMISTRY METHOD 04/30/2024 11:11 AM [facility] Comment:Calculation based on the Chronic Kidney Disease Epidemiology Collaboration (CKD-EPI) equation refit without adjustment for race. BUN/Creatinine Ratio 19.2 LAB CHEMISTRY METHOD 04/30/2024 11:11 AM [facility] Calcium 9.0 8.5 - 10.5 mg/dL LAB CHEMISTRY METHOD 04/30/2024 11:11 AM [facility] AST (SGOT) 82(H) 10 - 42 unit/L LAB CHEMISTRY METHOD 04/30/2024 11:11 AM [facility] ALT (SGPT) 160(H) 10 - 60 unit/L LAB CHEMISTRY METHOD 04/30/2024 11:11 AM [facility] Alkaline Phosphatase 55 42 - 121 unit/L LAB CHEMISTRY METHOD 04/30/2024 11:11 AM [facility] Total Protein 5.8(L) 6.0 - 8.0 g/dL LAB CHEMISTRY METHOD 04/30/2024 11:11 AM EDT [facility] Albumin 3.4 3.2 - 5.0 g/dL LAB CHEMISTRY METHOD 04/30/2024 11:11 AM EDT [facility] Total Bilirubin 1.2 0.0 - 1.4 mg/dL LAB CHEMISTRY METHOD 04/30/2024 11:11 AM EDT [facility] Blood Venous blood specimen / Unknown Venipuncture / Unknown 04/30/2024 8:11 AM EDT 04/30/2024 8:11 AM EDT Mike OLSEN LAB BLOOD ORDERABLES Erma brown Result [facility] [address] [place] [address], * Colonoscopy (05/26/2020) Colonoscopy No interpreta tion,abstr acted Anatomical Region Laterality Modality Other Historical Provider HEALTH MAINTENANCE Final Result from Last 3 Months or Most Recently Relevant to Health Maintenance Insurance [facility] Care Teams Circulation Manager Relationship Specialty Start Date End Date Mike Watson PA [address] [place] [address] PCP - General Internal Medicine 01/31/24
== END 2024-08-08 13:43 | disposition home or self-care (01) ==
LOC: HO.HPS 13:15
PROVIDERS: PCP Physician Assistant Medical; Visit Provider Internal Medicine Pulmonary Disease
DX: J84.9 Interstitial pulmonary disease, unspecified (principal); R05.9 Cough, unspecified
CPT/HCPCS: 99214; G2211

== ENCOUNTER 2024-09-19 13:09 | Outpatient (AMB) | payer OTHER, SELFPAY ==
[2022-12-18 15:57] VITALS: BMI 28.8
--- OUTSIDE RECORDS SUMMARY | 2024-09-18 13:30 | XMS_ITS | Encounter Summary ---
Author Organization [facility] Address [address] [place] [address] Support Name Relationship Address Phone Mike Harman Brother [address] [place] [address] Kareen Hammer Extended family member Unknown + Care Team Providers Care Fish Dressing Machine Feeder Name Role Phone Mike Watson Primary Care Provider [phone] Reason for Visit * Reason Comments Pain * Consultation (Routine) - Authorized Specialty Diagnoses / Procedures Referred By Gloria szymanski Referred To Contact Hand Surgery / Orthopaedic Surgery Diagnoses Mucoid cyst of joint Mike Watson PA [address] [place] [address] Phone: tel: fax: Orthopedic Surgery [facility] [address] [address] Phone: tel: fax: Referral ID Status Reason Start Date Expiration Date Visits Requested Visits Authorized [id number] Authorized Specialty Services Required 08/20/2024 08/20/2025 1 1 Encounter Details Date Type Department Care Team (Late st Contact Info) Description 09/18/2024 1:30 PM EDT Office Visit Orthopedic Surgery [facility] [address] [phone] Teodora Villalba PA [address] [phone] Mucoid cyst of joint Social History Tobacco Use Types Packs/Day Years [...] for your loved ones. For example, child psychiatrist or elderly care for an older adult? [...] Sign Reading Time Taken Comments Blood Pressure - - Pulse - - Temperature - - Respiratory Rate - - Oxygen Saturation - - Inhaled Oxygen Concentration - - Weight 96.6 kg (213 lb) 09/18/2024 1:28 PM EDT Height 188 cm (6' 2 ) 09/18/2024 1:28 PM EDT Body Mass Index 27.35 09/18/2024 1:28 PM EDT documented in this encounter Progress Notes * PRETTY Echeverria - 09/18/2024 1:30 PM EDT Images from the original note were not included. Referring MD:Mike Watson, PRETTY Mr. Hammer is a 63 y.o. year old male who presents for consultation regarding Chief Complaint Patient presents with Right Index Finger - Pain . HPI: 63-year-old [id number] male chief complaint of right index finger cyst and nail deformity.He noted it about 6 months ago. Occasional pain. He states it looked worse before. He had a breakage in the base of the nail that seemed deeper but no drainage. Some mild pain. It slowly improved. Noevidence of infection. He brought the concern up to his primary care provider PRETTY who referred him here. He does have ankylosing spondylitis and is on Simpomi and prednisone. PAST MEDICAL HISTORY: Past Medical History: Diagnosis Date Chest pain syndrome 08/30/2012 DX:Chest pain syndrome; COMMENT: S/p cath August 12 2012- LM, LAD, LCX and RCA mild luminal irreg Eosinophilic esophagitis 11/12/2012 DX:Eosinophilic esophagitis; COMMENT: Upper GI endoscopy and biopsy 11/11/2012. Fatty liver 2013 DX:Fatty liver HTN (hypertension) 11/11/2013 DX:HTN (hypertension) Hypercholesterolemia 03/05/2009 DX:Hypercholesterolemia Kidney stones 03/05/2009 DX:Kidney stones; COMMENT: Lithotripsy 2013, obstructing right ureteral stone Neurogenic thoracic outlet syndrome 07/23/2014 DX:Neurogenic thoracic outlet syndrome PAST SURGICAL HISTORY: Past Surgical History: Procedure Laterality Date CARDIAC CATHETERIZATION DONE ON 02/14/2024 [place] [facility] [place] INDICATIONS:Abnormal Coronary CTA COLONOSCOPY N/A 05/26/2020 PROCEDURE: HISTORICAL COLONOSCOPY; COMMENT: Diminutive colonic polyps x2: Hyperplastic x1, SSA x1. ESOPHAGOGASTRODUODENOSCOPY 02/13/2012 PROCEDURE: OR EGD TRANSORAL BIOPSY SINGLE/MULTIPLE; COMMENT: furrows in the esophagus, bx: Eosinophilic esophagitis OTHER SURGICAL HISTORY 09/12/2013 PROCEDURE: OR PYELOTOMY WITH REMOVAL CALCULUS; COMMENT: cystoscopic Dr. Garcia SOCIAL HISTORY: Social History Occupational History Not on file Tobacco Use Smoking status: Never Smokeless tobacco: Never Substance and Sexual Activity Alcohol use: No Drug use: No Sexual activity: Not on file Comment: monogamous FAMILY HISTORY: Family History Problem Relation Name Age of Onset Heart attack Paternal Grandfather 50.00 Heart attack Maternal Grandfather 50.00 Heart attack Father 50.00 No Known Problems Brother Heart attack Brother 50.00 Heart attack Brother 50.00 Hypertension Mother Diabetes Mother Hyperlipidemia Mother ACTIVE PROBLEMS LIST: Patient Active Problem List Diagnosis Aneurysm of ascending aorta ([facility] V24) Ankylosing spondylitis (CMS/HCC V24, CMS/HCC V28) CAD (coronary artery disease) Carotid artery stenosis Eosinophilic esophagitis Fatty liver HTN (hypertension) Hydronephrosis Hypercholesterolemia Hyponatremia ILD (interstitial lung disease) (CMS/[facility] V24, CMS/HCC V28) Nephrolithiasis Neurogenic thoracic outlet syndrome Neurostimulator device in situ Folic acid deficiency ACTIVE MEDICATIONS: Current Outpatient Medications on File Prior to Visit Medication Sig Dispense Refill acetaminophen (TYLENOL) 500 [...] 3 DILT-XR 120 mg 24 hr capsule TAKE ONE CAPSULE BY MOUTH EVERY DAY 90 capsule 2 fluticasone propionate (FLONASE) 50 mcg/actuation nasal spray Administer into affected nostril(s). folic acid (FOLVITE) 1 mg tablet Take 1 tablet (1 mg total) by mouth 1 (one) time each day. 30 each11 Golimumab (Simponi ARIA) 12.5 mg/mL solution injection Infuse into a venous catheter. isosorbide mononitrate (IMDUR) 60 mg 24 hr tablet TAKE ONE TABLET BY MOUTH EVERY DAY 90 tablet 1 lidocaine (LIDODERM) 5 % patch APPLY ONE [...] taper dose pregabalin (LYRICA) 100 mg capsule TAKE ONE CAPSULE BY MOUTH TWICE A DAY 60 capsule 0 No current facility-administered medications on file prior to visit. ALLERGIES: Allergies Allergen Reactions Codeine Nausea And Vomiting Gluten GI intolerance Methotrexate Oxycodone Nausea And Vomiting Oxycodone-Acetaminophen Nausea And Vomiting Baclofen Other Reaction(s): RASH, BLISTERING nightmares Fluconazole Other Other Reaction(s): RASH, BLISTERING blisters Tizanidine Nausea And Vomiting Other Reaction(s): NAUSEA & VOMITING/ RASH, BLISTERING PHYSICAL EXAM: Visit Vitals Ht 1.88 m (74 ) Wt 96.6 kg (213 lb) BMI 27.35 kg/m?? Smoking Status Never BSA 2.23 m?? APPEARANCE: Alert and in no acute distress Right index finger there is slight soft tissue prominence at the dorsum of the distal phalanx and asmall pinpoint raised area, questionable mucous cyst. There is ridging of the nail on the radial side and nail deformity at the base. No redness or signs of infection. No drainage. He can make a fullfist. LABS: None IMAGING: None ASSESSMENT AND PLAN: 1. Mucoid cyst of joint The details of the visit were reviewed with the patient. Pertinent history, and objective findings were reviewed, along with the diagnoses: Right index finger mucous cyst and nail deformity related to this and underlying osteoarthritis. There is no signs of infection. There is nothing to drain currently looks like things are drying up. Iexplained the condition. Explained just observation at this time. If there was further development of the cyst, further nail deformity, ridging of the nail or concern over developing infection patient will call for an appointment. No treatment recommended at this time. PRETTY Echeverria acknowledges understanding of the above plan and agrees to follow recommendations and/or take medications as prescribed. cc: Mike Watson PA documented in this encounter Plan of Treatment Upcoming Encounters Date Type Department Care Team (Late st Contact Info) Description 10/22/2024 10:45 AM EDT Office Visit Adult Medicine [facility] [address] [place] [phone] Mike Watson PA [address] [place] [address] 10/24/2024 2:40 PM EDT Office Visit [facility] [address] [place] [address] [place] [phone] Ida Caldwell NP [address] [place] [address] [place] [address] documented as of this encounter Visit Diagnoses Diagnosis Mucoid cyst of joint documented in this encounter Orders Outpatient Referral Count Last Ordered Date Fir st Ordered Date AMB REFERRAL TO HAND SURGERY 1 09/18/2024 documented in this encounter Additional Health Concerns Assessment Noted Time PHQ-9 Depression Total Score: 0 04/18/19 25 9:59 AM EST documented as of this encounter Care Teams Fish Dressing Machine Feeder Relationship Specialty Start Date End Date Mike Watson PA [address] [place] [address] PCP - General Internal Medicine 01/31/24 documented as of this encounter
--- OUTSIDE RECORDS SUMMARY | 2024-09-19 13:11 | XMS_ITS | Clinical Summary ---
Author Organization [facility] Address [address] [place] [address] Phone Care Team Providers Care Flat Optical Element Maker Name Role Phone DaxrohanbandarSussy Lambert DO Primary Car e Provider Social History Tobacco Use Types Packs/Day Years Used Date Smoking Tobacco: Never Assessed Education Answer Date Recorded Are you interested in more education? Not on raffi e 06/09/2022 Are you concerned about learning? Not on file 06/09/2022 No 06/09/2022 No 06/09/2022 Digital Access Answer Date Recorded No 07/11/2022 No 07/11/2022 Reliable internet access at home? Not on file 07/11/2022 Device with a working camera? Not on file Sex and Gender Information Value Date Recorded Sex Assigned at Not on file Legal Sex Male 12:16 PM EST Gender Identity Not on file Sexual Orientation Not on file Plan of Treatment Not on file Medical Devices Not on file Insurance [facility] [address] [address] [place] [address] [place] [address] [place] [address] Care Teams Flat Optical Element Maker Relationship Specialty Start Date End Date Sussy Huber DO [address] [place] [id number] PCP - General Internal Medicine 04/08/20 Additional Source Comments The information contained in this document represents components of the legal health record. It is not the complete legal health record.[facility]
--- OUTSIDE RECORDS SUMMARY | 2024-09-19 13:11 | XMS_ITS | Clinical Summary ---
Author Organization [facility], Address [address] [place] [address] [place] [address] Phone Care Team Providers Care Safety Assistant Name Role Phone Hossein Marion MD Primary Care Provider [phone] Allergies Active Allergy Reactions Criticality Noted Date [...] Risk 3-dose series) 09/2020 Influenza Vaccine (#1) 2024 01/21/2018 Insurance [facility] Care Teams Safety Assistant Relationship Specialty Start Date End Date Hossein Marion MD PCP - General Internal Medicine 04/07/21
--- OUTSIDE RECORDS SUMMARY | 2024-09-19 13:11 | XMS_ITS | Continuity of Care Document ---
Author Organization [facility] Address [address] [address] Insurance Providers Payer Plan Claims Address Claims Phone Policy Number Group Number Relation Employer Guarantor Name Guarantor Guarantor Address Guarantor Phone [facility] ARE [address], [address], [place] [address] tel:[phone] [id number] [phone] [id number] Self Moe Harman [address] [place] [address] [facility] [address], [address], [place] [address] tel:[phone] [id number] Self Moe Del Angelok [address] [place] [address] [facility], [address], [place] [address] tel:[id number] Self Moe Harman [address] [place] [address] Problems Condition ICD9 code ICD10 code SNOMED code Start Date End Date S tatus Encounter for screening for other metabolic disorders Z13.228 Results No Results Allergies, adverse reactions, alerts No known allergies and adverse reactions Medications No administered medications reported Vital Signs No vital signs reported Social History No smoking Hx information available
--- OUTSIDE RECORDS SUMMARY | 2024-09-19 13:11 | XMS_ITS | Clinical Summary ---
Author Organization [facility] Address [address] [place] [address] Care Team Providers Care Slot Router Name Role Phone Sussy Thurston DO Primary [...] 55 04/21/2020 2:28 PM EST Temperature 37.4 C (99.3 F) 04/21/2020 2:28 PM EST Respiratory Rate - - Oxygen Saturation - [...] or Tdap) 03/05/2019 03/05/2009 Influenza Vaccine (#1) 2024 8, 02/11/2015, 10/29/2012, Additional history exists RSV [...] on patient's age to complete this topic Care Teams Slot Router Relationship Specialty Start Date End Date Sussy Thurston DO PCP - General Food Expeditor 04/21/20
--- OUTSIDE RECORDS SUMMARY | 2024-09-19 13:11 | XMS_ITS ---
Author Name [facility] Organization Unknown Care Team Organization Name Specialty Phone Email Start Date End Da te [facility] Mike Watson Primary Care 06/19/2022 [facility] Termed, PROVIDER Primary Care 12/20/202109/12
[2024-09-19 13:18] VITALS: BP 122/62; PULSE 59; O2SAT 96; BMI 28.0
--- NOTE | 2024-09-19 13:18 | A.OFFVIS_ITS ---
Vital Signs 09/19/24 13:18 Height 6 ft 2 in Weight 218 lb BMI 28.0 BP 122/62 Blood Pressure Location Rt brachial Position Sitting Pulse 59 Pulse Source Pulse Oximeter Pulse Oximetry (%) 96 Oxygen Delivery Method Room Air Intake Visit Reasons: Cough Allergies gluten Allergy (Severe, Verified 09/19/24 13:24) Diarrhea acetaminophen (From PERCOCET) Allergy (Unknown, Verified 09/19/24 13:24) VOMITING codeine (CODEINE) Allergy (Unknown, Verified 09/19/24 13:24) VOMITING oxycodone (From PERCOCET) Allergy (Unknown, Verified 09/19/24 13:24) VOMITING fluconazole Allergy (Verified 09/19/24 13:24) Unknown baclofen Adverse Reaction (Intermediate, Verified 09/19/24 13:24) Nightmare HPI HPI Cough: Details: 3-year-old? gentleman, lifetime nonsmoker, with underlying history of ankylosing? spondylitis followed by Rheumatology now on biologic, initially followed? for organizing pneumonia, chronic productive cough, and dyspnea on? exertion.? Patient previously hospitalized at [facility] with fungal pneumonia with Kathy and Aspergillus noted on? bronchial alveolar lavage cultures.? 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 consolidation therapy.? He has been discharged on voriconazole 400 twice a day and had improved symptom control, however he developed allergic reaction and required switching to IV micafungin.? He has had a total of 12 weeks weeks of IV micafungin therapy with significant improvement in his dyspnea and resolution of his productive cough.? Thereafter his PICC line was discontinued in January of 2021 and he completed pulmonary rehab.?Patient was switched to azathioprine and titrated slowly up to 200 mg daily with good control of his underlying pulmonary symptoms and titration off his chronic prednisone. Previously patient symptoms improved significantly on prednisone taper, however as patient has finished his prednisone taper his symptoms have recurred. He did have follow-up CT chest that showed essentially stable findings over the last 3 years, and specifically no worsening of his underlying interstitial lung disease. Thereafter, patient was tried on methotrexate and was titrated up to 10 mg weekly with only partial response including significant improvement in his cough, but worsening side effects including significant stiffness and slowly worsening dyspnea. He also was tried on mycophenolate mofetil up to 1 mg twice a day, with worsening symptom control. After the last office visit patient was titrated down to 30 mg of prednisone with reasonable, but ever so slowly worsening control of his symptoms. He also continues to follow-up with ass and city planning teacher. [facility] Medical History Blister (nonthermal) of other finger, initial encounter Upper airway cough syndrome COVID-19 vaccine series completed ILD (interstitial lung disease) Ankylosing spondylitis Thoracic outlet syndrome COPD (chronic obstructive pulmonary disease) Acute hyponatremia Ankylosing spondylitis Chronic cough Organizing pneumonia Dyspnea on exertion Pneumonia Bronchitis GERD (gastroesophageal reflux disease) Hyperlipidemia Pulmonary nodules Social History Household Members: None Housing: House Do you presently have visiting nurse or other home services: No Alcohol intake: never Patient Tobacco Use Status: Never used Tobacco Second Hand Smoke Exposure: Yes (35 yr exposure at home) Advance Directives Date on File: 07/29/20 service: No Current occupational status: employed Review of Systems Const Denies daytime sleepiness, Denies excessive sweating, Denies fatigue, Denies fever(s), Denies lethargy, Denies malaise, Denies night sweats, Denies snoring and Denies weight loss Eyes Denies blurry vision and Denies itchy eyes ENT Denies nasal congestion, Denies post nasal drip, Denies sinus pain, Denies sinus pressure and Denies other ( Thrush) Card Denies chest pain, Denies pedal edema, Denies dyspnea, Reports dyspnea on exertion, Denies orthopnea and Denies paroxysmal nocturnal dyspnea Resp Denies cough, Denies hemoptysis, Denies excessive phlegm production, Denies dyspnea, Reports dyspnea on exertion, Denies snoring and Denies wheezing GI Denies abdominal pain and Denies heartburn Musc Denies myalgias, Denies arthralgias and Denies joint swelling Skin/Breast Denies rash Neuro Denies memory loss and Denies seizure-like activity Psych Denies abnormal sleep pattern, Denies anxiety and Denies memory loss Endo Denies excessive sweating, Denies fatigue and Denies heat intolerance Yusuf/Lymph Denies easy bruising Aller/Immun Denies itchy eyes, Denies seasonal rhinorrhea and Denies wheezing Physical Exam Vital Signs: Last Vital Signs Pulse 59 09/19/24 13:18 BP 122/62 09/19/24 13:18 Pulse Ox 96 09/19/24 13:18 Oxygen Delivery Method Room Air 09/19/24 13:18 BMI result Body Mass Index 28.0 Const General: no acute distress and alert Nutritional Appearance: not obese Orientation/consciousness: Other orientation findings ( oriented) HEENT Head: Yes atraumatic Eyes General: appearance normal, both eyes and all related structures Sclerae: sclerae normal EOM: EOMs intact bilaterally Neck Neck: Yes supple Lymphatic: no lymphadenopathy noted Resp Effort & Inspection: normal respiratory effort and no use of accessory muscles Auscultation: clear to auscultation bilaterally Cardio Rate: regular rate Rhythm: regular rhythm Heart sounds: no gallops, no murmurs and no rubs Skin General skin exam: other ( warm) Extrem General: No clubbing, No cyanosis and No edema Assessment & Plan Assessment & Plan (1) Dyspnea on exertion: Code(s): R06.00 - Dyspnea, unspecified Category: Medical (2) ILD (interstitial lung disease): Code(s): J84.9 - Interstitial pulmonary disease, unspecified Category: Medical Plan Interstitial lung disease with fluctuating dyspnea on exertion that appears to be related to underlying systemic rheumatologic disease with suboptimal control on tumor necrosis factor antibody and with poor response to multiple steroid sparing agents, now on prednisone 30 mg daily with reasonable, but slowly worsening pulmonary symptoms. Will try on low-dose Rituxan. Coding Level of Care Code Est Pt Level 4 (92414) Complex EM visit Add On G2211 Diagnoses Dyspnea on exertion R06.00 ILD (interstitial lung disease) J84.9
== END 2024-09-19 13:44 | disposition home or self-care (01) ==
LOC: HO.HPS 13:10
PROVIDERS: PCP Physician Assistant Medical; Visit Provider Internal Medicine Pulmonary Disease
DX: R06.00 Dyspnea, unspecified (principal); J84.9 Interstitial pulmonary disease, unspecified
CPT/HCPCS: 99214; G2211

== ENCOUNTER 2024-10-07 10:13 | Outpatient (AMB) | payer OTHER, SELFPAY ==
[2022-12-18 15:57] VITALS: BMI 28.8
[2024-10-07 10:14] VITALS: BP 112/62; PULSE 58; O2SAT 98; BMI 27.7
--- NOTE | 2024-10-07 10:14 | A.OFFVIS_ITS ---
Vital Signs 10/07/24 10:14 Height 6 ft 2 in Weight 216 lb BMI 27.7 BP 112/62 Blood Pressure Location Lt brachial Position Sitting Pulse 58 Pulse Source Pulse Oximeter Pulse Oximetry (%) 98 Oxygen Delivery Method Room Air Intake Visit Reasons: Cough Allergies gluten Allergy (Severe, Verified 10/07/24 10:19) Diarrhea acetaminophen (From PERCOCET) Allergy (Unknown, Verified 10/07/24 10:19) VOMITING codeine (CODEINE) Allergy (Unknown, Verified 10/07/24 10:19) VOMITING oxycodone (From PERCOCET) Allergy (Unknown, Verified 10/07/24 10:19) VOMITING fluconazole Allergy (Verified 10/07/24 10:19) Unknown baclofen Adverse Reaction (Intermediate, Verified 10/07/24 10:19) Nightmare HPI HPI Cough: Details: 63-year-old? gentleman, lifetime nonsmoker, with underlying history of ankylosing? spondylitis followed by Rheumatology now on biologic, initially followed? for organizing pneumonia, chronic productive cough, and dyspnea on? exertion.? Patient previously hospitalized at [facility] with fungal pneumonia with Kathy and Aspergillus noted on? bronchial alveolar lavage cultures.? 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 consolidation therapy.? He has been discharged on voriconazole 400 twice a day and had improved symptom control, however he developed allergic reaction and required switching to IV micafungin.? He has had a total of 12 weeks weeks of IV micafungin therapy with significant improvement in his dyspnea and resolution of his productive cough.? Thereafter his PICC line was discontinued in January of 2021 and he completed pulmonary rehab.?Patient was switched to azathioprine and titrated slowly up to 200 mg daily with good control of his underlying pulmonary symptoms and titration off his chronic prednisone. Previously patient symptoms improved significantly on prednisone taper, however as patient has finished his prednisone taper his symptoms have recurred. He did have follow-up CT chest that showed essentially stable findings over the last 3 years, and specifically no worsening of his underlying interstitial lung disease. Thereafter, patient was tried on methotrexate and was titrated up to 10 mg weekly with only partial response including significant improvement in his cough, but worsening side effects including significant stiffness and slowly worsening dyspnea. He also was tried on mycophenolate mofetil up to 1 mg twice a day, with worsening symptom control. Now patient continues on 30 mg of prednisone with reasonable, but ever so slowly worsening control of his symptoms. 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 After the last visit has been no significant changes, though overall with slowly worsening symptoms. [facility] Medical History Blister (nonthermal) of other finger, initial encounter Upper airway cough syndrome COVID-19 vaccine series completed ILD (interstitial lung disease) Ankylosing spondylitis Thoracic outlet syndrome COPD (chronic obstructive pulmonary disease) Acute hyponatremia Ankylosing spondylitis Chronic cough Organizing pneumonia Dyspnea on exertion Pneumonia Bronchitis GERD (gastroesophageal reflux disease) Hyperlipidemia Pulmonary nodules Social History Household Members: None Housing: House Do you presently have visiting nurse or other home services: No Alcohol intake: never Patient Tobacco Use Status: Never used Tobacco Second Hand Smoke Exposure: Yes (35 yr exposure at home) Advance Directives Date on File: 07/29/20 service: No Current occupational status: employed Review of Systems Const Denies daytime sleepiness, Denies excessive sweating, Denies fatigue, Denies fever(s), Denies lethargy, Denies malaise, Denies night sweats, Denies snoring and Denies weight loss Eyes Denies blurry vision and Denies itchy eyes ENT Denies nasal congestion, Denies post nasal drip, Denies sinus pain, Denies sinus pressure and Denies other ( Thrush) Card Denies chest pain, Denies pedal edema, Denies dyspnea, Reports dyspnea on exertion, Denies orthopnea and Denies paroxysmal nocturnal dyspnea Resp Reports cough, Denies hemoptysis, Denies excessive phlegm production, Denies dyspnea, Reports dyspnea on exertion, Denies snoring and Denies wheezing GI Denies abdominal pain and Denies heartburn Musc Denies myalgias, Denies arthralgias and Denies joint swelling Skin/Breast Denies rash Neuro Denies memory loss and Denies seizure-like activity Psych Denies abnormal sleep pattern, Denies anxiety and Denies memory loss Endo Denies excessive sweating, Denies fatigue and Denies heat intolerance Yusuf/Lymph Denies easy bruising Aller/Immun Denies itchy eyes, Denies seasonal rhinorrhea and Denies wheezing Physical Exam Vital Signs: Last Vital Signs Pulse 58 10/07/24 10:14 BP 112/62 10/07/24 10:14 Pulse Ox 98 10/07/24 10:14 Oxygen Delivery Method Room Air 10/07/24 10:14 BMI result Body Mass Index 27.7 Const General: no acute distress and alert Nutritional Appearance: not obese Orientation/consciousness: Other orientation findings ( oriented) HEENT Head: Yes atraumatic Eyes General: appearance normal, both eyes and all related structures Sclerae: sclerae normal EOM: EOMs intact bilaterally Neck Neck: Yes supple Lymphatic: no lymphadenopathy noted Resp Effort & Inspection: normal respiratory effort and no use of accessory muscles Auscultation: clear to auscultation bilaterally Cardio Rate: regular rate Rhythm: regular rhythm Heart sounds: no gallops, no murmurs and no rubs Skin General skin exam: other ( warm) Extrem General: No clubbing, No cyanosis and No edema Assessment & Plan Assessment & Plan (1) ILD (interstitial lung disease): Code(s): J84.9 - Interstitial pulmonary disease, unspecified Category: Medical (2) Dyspnea on exertion: Code(s): R06.00 - Dyspnea, unspecified Category: Medical Plan Interstitial lung disease with fluctuating dyspnea on exertion that appears to be related to underlying systemic rheumatologic disease with suboptimal control on tumor necrosis factor antibody and with poor response to multiple steroid sparing agents, now on prednisone 30 mg daily with slowly worsening pulmonary symptoms. Now pending Rituxan approval. Additional immunologic workup as requested by insurance for Rituxan approval is pending. Orders: Orders Hepatitis C Antibody Today J84.9 - Interstitial pulmonary disease, unspecified ESTEPHANIE 1 Antibody Today J84.9 - Interstitial pulmonary disease, unspecified MSA Panel Extended Today J84.9 - Interstitial pulmonary disease, unspecified Hepatitis B Surface Antigen Today J84.9 - Interstitial pulmonary disease, unspecified MSA Panel 11 Myositis Spec Abs Today J84.9 - Interstitial pulmonary disease, unspecified Coding Level of Care Code Est Pt Level 4 (85883) Diagnoses ILD (interstitial lung disease) J84.9 Dyspnea on exertion R06.00
--- OUTSIDE RECORDS SUMMARY | 2024-10-07 10:57 | XMS_ITS | Clinical Summary ---
Author Organization [facility] Address [address] [place] [id number] Care Team Providers Care Rn Wound Care Name Role Phone Sussy Thurston DO Primary [...] age to complete this topic Care Teams Rn Wound Care Relationship Specialty Start Date End Date Sussy Thurston DO PCP - General Animal Geneticist 04/21/20
--- OUTSIDE RECORDS SUMMARY | 2024-10-07 10:57 | XMS_ITS | Continuity of Care Document ---
Author Organization [facility] Address [address] [address] Insurance Providers Payer Plan Claims Address Claims Phone Policy Number Group Number Relation Employer Guarantor Name Guarantor Guarantor Address Guarantor Phone [facility] ARE [address], [address], [place] [address] tel:[id number] Self Moe Harman [address] [place] [address] [facility] [address], [address], [place] [address] tel:[phone] [id number] Self Moe Del Angelok [address] [place] [address] [facility], [address], [place] [address] tel:[phone] Self Moe Harman [address] [place] [address] Problems Condition ICD9 code ICD10 code SNOMED code Start Date End Date S tatus Encounter for screening for other metabolic disorders Z13.228 Results No Results Allergies, adverse reactions, alerts No known allergies and adverse reactions Medications No administered medications reported Vital Signs No vital signs reported Social History No smoking Hx information available
--- OUTSIDE RECORDS SUMMARY | 2024-10-07 10:57 | XMS_ITS | Clinical Summary ---
Author Organization [facility] Address [address] [place] [address] Care Team Providers Care Printer Floor Covering Assistant Name Role Phone Mike Watson Primary Care Provider [phone] Allergies Active Allergy Reactions Criticality Noted Date Comments Baclofen Sleep Disturbance 07/30/2024 Codeine Vomiting 07/30/2024 Fluconazole Rash 07/30/2024 Gluten Diarrhea 07/30/2024 Methotrexate Joint pain,Muscle Pain 07/30/2024 Oxycodone-Acetaminophen Vomiting 07/30/2024 Tizanidine Rash 07/30/2024 Medications albuterol 2.5 mg/3 mL (0.083%) nebulizer solution Active albuterol (PROAIR HFA,VENTOLIN HFA) 90 mcg inhaler Inhale 2 puffs by mouth every 6 hours as needed. Active atorvastatin (LIPITOR) 10 mg tablet Take 20 mg by mouth. 01/08/20 21 Active cetirizine (ZyrTEC) 10 mg tablet 03/16/19 22 Active fluticasone propionate (FLONASE) 50 mcg/actuation nasal spray 1 spray. Active gabapentin (NEURONTIN) 800 mg tablet 05/18/19 22 Active omeprazole (PriLOSEC) 20 mg capsule TAKE ONE CAPSULE BY MOUTH EVERY DAY WHILE ON NAPROXEN TO PROTECT YOUR STOMACH 03/21/19 22 Active diphenhydrAMINE (BENADRYL) 25 mg capsule Take 75 mg by mouth every night. Active PREDNISONE, BULK, MISC 10 mg. Active aspirin chewable tablet 81 mg Chew and swallow 81 mg by mouth once a day. Active pregabalin (Lyrica) 100 mg capsule Take 100 mg by mouth every 12 hours. Active sulfamethoxazol e-trimethoprim (BACTRIM SS) 400-80 mg tablet Take 1 tablet by mouth 2 times a day. Active dilTIAZem (CARDIZEM) 120 mg tablet Take 120 mg by mouth once a day. Active isosorbide mononitrate ER (IMDUR) 60 mg tablet Take 60 mg by mouth once a day. Active golimumab (SIMPONI ARIA INTRAVENOU) Infuse intravenousl y. Active metoprolol succinate XL (TOPROL XL) 50 mg tablet Take 50 mg by mouth once a day. Active inhalational spacing device Use as directed. 1 each 1 09/18/19 25 Active mometasone 100 mcg/actuation HFA aerosol inhaler Inhale 2 puffs (200 mcg total) by mouth 2 times a day. 13 g 1 09/19/19 25 Active infliximab-dyyb (INFLECTRA INTRAVENOU) 025 Discontinued(Di scontinued by another clinician) mycophenolate (CELLCEPT) 500 mg tablet 750 mg 2 times a day. 09/11/19 22 025 Discontinued(Di scontinued by another clinician) fluticasone propionate (FLOVENT HFA) 110 mcg inhaler Inhale 2 puffs (220 mcg total) by mouth 2 times a day. Rinse mouth with water after use. Do not swallow. 12 g 11 09/18/19 25 025 Discontinued Active Problems Problem Noted Date Diagnosed Date Ankylosing spondylitis of multiple sites in spin e 09/17/2024 History of high cholesterol 09/17/2024 Folic acid deficiency 03/24/2024 Carotid artery stenosis 08/21/2023 Overview (09/17/2024): Last Assessment & Plan: Patient underwent bilateral carotid artery ultrasound August 2023 which showed less than 50% stenosis in the ICAs bilaterally. He continues on aspirin and statin. History of fungal pneumonia 06/01/2021 Chest wall pain 04/07/2021 CAD (coronary artery disease) 10/29/2020 Overview (09/17/2024): Last Assessment & Plan: The patient has [...] nitroglycerin, or if they were to faint. Ankylosing spondylitis 2018 Overview (09/17/2024): Following with arthritis treatment center S/p lumbar zygapophyseal joint injection 04/01/21 Hypertension 11/11/2013 Overview (09/17/2024): Last Assessment & Plan: Patient's blood pressure is acceptable today. He will continue his current antihypertensive medication regimen as prescribed. Will increase isosorbide mononitrate swelling below. Fatty liver 2013 Eosinophilic esophagitis 11/12/2012 Overview (09/17/2024): Upper GI endoscopy and biopsy 11/11/2012. Encounters Date Type Department Care Team Description 09/18/2024 Orders Only [facility] [address] [place] [id number] Medical Sales Consultant: Anayeli Anne NP 09/18/2024 Telephone [facility] [address] [address] Medical Sales Consultant: Gilberto Ortiz MD Martinez/PA or alternative 09/17/2024 4:40 PM EDT Follow-Up [facility] [address] [place] [id number] Medical Sales Consultant: Gilberto Ortiz MD Mild intermittent asthma without complication (HCC) (Primary Dx) 09/17/2024 2:17 PM EDT - 09/17/2024 11:59 PM EDT Hospital Encounter [facility] [address] [place] [id number] Gilberto Nguyen MD Dyspnea on exertion Discharge Disposition: Home or Self Care (01) 07/30/2024 3:00 PM EDT Office Visit [facility] [address] [place] [id number] Medical Sales Consultant: Gilberto Ortiz MD Dyspnea on exertion (Primary Dx) 07/23/2024 Orders Only External Imaging [address] [place] [address] Radiology, External 07/23/2024 Telephone [facility] [address] [place] [address] Medical Sales Consultant: Gilberto Ortiz MD Martinez/CT Chest Disc from Last 3 Months Social History Tobacco Use Types Packs/Day Years [...] Sign Reading Time Taken Comments Blood Pressure 148/72 09/17/2024 4:25 PM EDT Pulse 64 09/17/2024 4:25 PM EDT Temperature - - Respiratory Rate 18 09/17/2024 4:25 PM EDT Oxygen Saturation 100% 09/17/2024 4:25 PM EDT Inhaled Oxygen Concentration - - Weight 99.3 kg (219 lb) 09/17/2024 4:25 PM EDT Height 188 cm (6' 2 ) 11/28/2021 9:47 AM EDT Body Mass Index 28.12 11/28/2021 9:47 AM EDT Plan of Treatment Health Maintenance Due Date Last Done Comments Cologuard 1960 Colonoscopy 1960 HIV Screening 1960 Sigmoidoscopy 1960 RSV Vaccine (60+ years old and patients) (1 - Risk 60-74 years 1-dose series) 2020 Pneumococcal Vaccine: 50+ Years (2 of 2 - PCV) 12/02/2022 12/02/2021 Alcohol/Substance Use Screening 02/13/2024 Depression Screening and Follow-Up 02/13/2024 Social Drivers of Health Annual Screening 02/13/2024 Influenza Vaccine (#1) 2024 , 12/02/2021, 10/21/2019, Additional history exists Basic Metabolic Panel 04/30/2025 04/30/2024 , 04/10/2024, 04/12/2021 Colon Cancer Screening 04/30/2025 FOBT / Fit Test 04/30/2025 04/30/2024 DTaP,Tdap,and Td Vaccines (3 - Td or Tdap) 12/03/2031 12/02/2021, 03/05/2009 Hepatitis C Screening Completed 04/07/2021 Zoster Vaccines Completed 07/19/2021, 05/13/2021 COVID-19 Vaccine Completed 10/24/2023, 05/2022, 11/20/2021, Additional history exists Hepatitis B Vaccines Aged Out No long er eligible based on patient's age to complete this topic Procedures * Due to [place] [employer] law, this organization might not be sharing negative HIV tests. Procedure Name Priority Date/Time Associated Diagnosis Comments PULMONARY FUNCTION TEST Routine 09/17/2024 3:10 PM EDT Dyspnea on exertion from Last 3 Months Results * Due to [place] [employer] law, this organization might not be sharing negative HIV tests. * Pulmonary Function Test UNV; Spirometry, Lung Volumes, Diffusing Capacity; Spirometry before and after bronchodilator Per Protocol, Inspiratory and expiratory mouth pressures; Lung volumes (Plethysmography); Diffusing capacity (DLco); Severe HAWTHORNE, ... (09/17/2024 3:10 PM EDT) FVC (L) 4.88 L [facility] FVC % Predicted 103 % [facility] FEV1 (L) 3.01 L [facility] FEV1 % Predicted 83 % [facility] FEV1/FVC Ratio 62 % [facility] [id number] t-Bronchodilat or 4.87 L [facility] [id number]-Iaair hodilator % of Predicted 103 % [facility] FEV1-Actual Post-Bronchodi lator 3.43 L [facility] FEV1 Post-Bronchodi lator % of Predicted 95 % [facility] FEV1/FVC Actual Post-bronchodi lator 70 % [facility] 09/17/2024 3:10 PM EDT Narrative [facility] - 09/17/2024 3:10 PM EDT There is a borderline obstructive ventilatory impairment. Airflow obstruction could be due to asthma or COPD or other obstructive lung diseases. There is a significant improvement in airflow after inhaled bronchodilator ([employer]ISTR[employer] = 10% for FEV1). The improvement suggests a component of bronchial responsiveness. There is no restrictive ventilatory defect by measure of total lung capacity. The individual DLco efforts meet ATS/ERS acceptability, and meet repeatability standards. Measure of uncorrected diffusing capacity (DLco) is most consistent with normal alveolar capillary membrane surface area and diffusion properties for gas exchange. Mouth pressures are within normal limits for both inspiration (PImax) and expiration (PEmax). us Gilberto Nguyen MD PFT ORDERABLES Final Re sult [facility] from Last 3 Months Insurance [facility] Care Teams Printer Floor Covering Assistant Relationship Specialty Start Date End Date Mike Watson [address] [place] [address] PCP - General Internal Medicine 06/13/24
--- OUTSIDE RECORDS SUMMARY | 2024-10-07 10:57 | XMS_ITS | Clinical Summary ---
Author Organization [facility], Address [address] [place] [address] [place] [address] Phone Care Team Providers Care Web Site Specialist Name Role Phone Hossein Marion MD Primary Care Provider [phone] Allergies Active Allergy Reactions Criticality Noted Date [...] 09/2020 Influenza Vaccine (#1) 2024 01/21/2018 Insurance [facility] Care Teams Web Site Specialist Relationship Specialty Start Date End Date Hossein Marion MD PCP - General Internal Medicine 04/07/21
--- OUTSIDE RECORDS SUMMARY | 2024-10-07 10:57 | XMS_ITS | Clinical Summary ---
Author Organization [facility] [employer] [facility] Address [address] [place] [address] Phone Support Name Relationship Address Phone Mike Merino Brother [address] [place] [address] Kareen Merino Extended family member Unknown + Care Team Providers Care Sheeter Machine Operator Name Role Phone Mike Watson Primary Care Provider [phone] Allergies Active Allergy Reactions Criticality Noted Date Comments Baclofen Low 09/21/2021 Other Reaction(s): RASH, BLISTERING nightmares Codeine Nausea And Vomiting High 10/18/2018 Fluconazole Other Low 12/22/2020 Other Reaction(s): RASH, BLISTERING blisters Gluten GI intolerance 08/14/2022 Methotrexate 09/18/2024 Oxycodone Nausea And Vomiting 04/21/2020 Oxycodone-Acetaminophe n [...] Infuse into a venous catheter. 4 Active lidocaine (LIDODERM) 5 % patch APPLY ONE PATCH EXTERNAL DAILY TO BACK NEEDED Active ondansetron (ZOFRAN) 8 mg tablet Take 1 tablet (8 mg total) by mouth every 8 (eight) hours if needed. 4 Active diclofenac (VOLTAREN) 1 % topical gel APPLY 4 GRAMS TOPICALLY 4 TIMES A DAY NEEDED FOR OTHER (ARTHRITIS PAIN). 100 g 3 4 Active atorvastatin (LIPITOR) 20 mg tablet Take 1 tablet (20 mg total) by mouth 1 (one) time each day. 90 tablet 3 4 Active folic acid (FOLVITE) 1 mg tablet Take 1 tablet (1 mg total) by mouth 1 (one) time each day. 30 each 11 5 03/24/19 26 Active predniSONE (DELTASONE) 10 mg tablet Take 3 tablets (30 mg total) by mouth 1 (one) time each day. patient is doing taper dose Active pregabalin (LYRICA) 100 mg capsule TAKE ONE CAPSULE BY MOUTH TWICE A DAY 60 capsule 5 Active isosorbide mononitrate (IMDUR) 60 mg 24 hr tablet TAKE ONE TABLET BY MOUTH EVERY DAY 90 tablet 1 5 Active omeprazole (PriLOSEC) [address] capsule TAKE ONE CAPSULE BY MOUTH EVERY DAY 90 capsule 1 5 Active cetirizine (ZyrTEC) 10 mg tablet TAKE ONE TABLET BY MOUTH EVERY DAY 90 tablet 1 5 Active DILT-XR 120 mg 24 hr capsule TAKE ONE CAPSULE BY MOUTH EVERY DAY 90 capsule 2 5 Active Active Problems Problem Noted Date Diagnosed [...] aspirin and statin. Aneurysm of ascending aorta (CMS/[facility] V24) 2022 Overview (12/24/2023): Last Assessment & [...] S/HCC V28) 01/31/2021 Overview (12/24/2023): Follows with [facility] Pulm Evaluated by [facility] pulmonology who recommended referral to [facility] CAD (coronary artery disease) 10/29/2020 Overview (12/24/2023): [...] and the less than 0.1% risk for ND, stroke or . The patient understands and [...] Date Type Department Care Team Description 09/18/2024 1:30 PM EDT Office Visit Orthopedic Surgery - [address] [place] [address] Toedora Villalba PA Mucoid cyst of joint from Last 3 Months Immunizations Name Administration [...] Site/Laterality Comments OTHER SURGICAL HISTORY 09/12/2013 PROCEDURE: MD PYELOTOMY WITH REMOVAL CALCULUS; COMMENT: cystoscopic Dr. Garcia ESOPHAGOGASTRODUODENOSCOPY 02/13/2012 PROCEDURE: MD EGD TRANSORAL BIOPSY SINGLE/MULTIPLE; COMMENT: furrows in the esophagus, bx: Eosinophilic esophagitis COLONOSCOPY 05/26/2020 N/A PROCEDURE: HISTORICAL COLONOSCOPY; COMMENT: Diminutive colonic polyps x2: Hyperplastic x1, SSA x1. CARDIAC CATHETERIZATION DONE ON 02/14/2024 AT [facility] INDICATIONS:Abnormal Coronary CTA Medical History Medical History [...] for your loved ones. For example, child welfare specialist or elderly care for an older adult? [...] EST Inhaled Oxygen Concentration - - Weight 96.6 kg (213 lb) 09/18/2024 1:28 PM EDT Height 188 cm (6' 2 ) 09/18/2024 1:28 PM EDT Body Mass Index 27.35 09/18/2024 1:28 PM EDT Plan of Treatment Upcoming Encounters Date Type Department Care Team (Late st Contact Info) Description 10/22/2024 10:45 AM EDT Office Visit Adult [facility] [address] [place] [phone] Mike Watson PA [address] [place] [address] 10/24/2024 2:40 PM EDT Office Visit [facility] [address] [place] [address] [place] [phone] Ida Caldwell NP [address] [place] [address] [place] [address] Health Maintenance Due Date Last Done Comments [...] 2024 10/24/2023, 06/15/2022, 11/20/2021, Additional history exists Influenza Vaccine (#1) 2024 4, 12/02/2021, 10/21/2019, Additional history exists Social Influencers of Health Screening 04/21/2025 04/21/2024 Hypertension/CHF/CAD Annual BMP Blood Test 04/30/2025 04/30/2024, 04/10/2024, 03/21/2024, Additional history exists Colorectal Cancer Screening: Colonoscopy 05/26/2025 05/26/2020 Cholesterol Screening (Lipid Panel) 04/30/2029 04/30/2024, 10/12/2023, 10/12/2023 DTaP,Tdap,and Td Vaccines (3 - Td or Tdap) 12/03/2031 12/02/2021, 03/05/2009 Zoster Vaccines Completed 07/19/2021, 05/13/2021 Depression Screening Completed 04/17/2024 Hepatitis C Screening Completed 04/30/2024 , 03/14/2024, [...] Priority Date/Time Associated Diagnosis Comments PULMONARY FUNCTION TESTING 09/17/2024 HEPATITIS C ANTIBODY Routine 04/30/2024 8:11 AM EDT Aneurysm of ascending aorta without rupture ([facility]/HCC V24) Ankylosing spondylitis, unspecified site of spine (CMS/HCC V24, [facility]/HCC V28) Stenosis of carotid artery, unspecified laterality Eosinophilic esophagitis Coronary artery disease due to lipid rich plaque Primary hypertension ILD (interstitial lung disease) (CMS/HCC V24, CMS/[facility] V28) Hypercholesterolemi a Neurogenic thoracic outlet syndrome [...] Recently Relevant to Health Maintenance Results * Pulmonary function testing: (09/17/2024) Provider [facility] PFT ORDERABLES Final Re sult * Hepatitis C antibody (04/30/2024 8:11 AM EDT) Hepatitis C Antibody Negative Negative LAB CHEMISTRY METHOD 04/30/2024 11:48 AM EDT [facility] Blood Venous blood specimen / Unknown Venipuncture / Unknown 04/30/2024 8:11 AM EDT 04/30/2024 8:11 AM EDT Mike OLSEN LAB BLOOD ORDERABLES Erma l Result [facility] [address] [place] [address], [place] [phone] * Lipid panel with reflex to direct LDL (04/30/2024 8:11 AM EDT) Cholesterol 100 0 - 200 mg/dL LAB CHEMISTRY METHOD 04/30/2024 11:47 AM EDT [facility] Triglycerides 35 0 - 150 mg/dL LAB CHEMISTRY METHOD 04/30/2024 11:47 AM EDT [facility] HDL 67 >=40 mg/dL LAB CHEMISTRY METHOD 04/30/2024 11:47 AM EDT [facility] LDL Calculated 26 0 - 100 mg/dL LAB CHEMISTRY METHOD 04/30/2024 11:47 AM T [facility] VLDL Cholesterol Vasu 7 mg/dL LAB CHEMISTRY METHOD 04/30/2024 11:47 AM [facility] Non HDL Chol. (LDL+VLDL) 33 <145 mg/dL LAB CHEMISTRY METHOD 04/30/2024 11:47 AM [facility] Chol/HDL Ratio 1.5 0.0 - 4.4 LAB CHEMISTRY METHOD 04/30/2024 11:47 AM [facility] Blood Venous blood specimen / Unknown Venipuncture / Unknown 04/30/2024 8:11 AM EDT 04/30/2024 8:11 AM EDT Mike OLSEN LAB BLOOD ORDERABLES Erma l Result [facility] [address] [place] [address], [place] [phone] * (ABNORMAL) Comprehensive metabolic panel (04/30/2024 8:11 AM EDT) Sodium 143 133 - 145 mmol/L LAB CHEMISTRY METHOD 04/30/2024 11:11 AM T [facility] Potassium 4.5 3.5 - 5.5 mmol/L LAB CHEMISTRY METHOD 04/30/2024 11:11 AM [facility] Chloride 107 96 - 110 mmol/L LAB CHEMISTRY METHOD 04/30/2024 11:11 AM [facility] CO2 31 21 - 32 mmol/L LAB CHEMISTRY METHOD 04/30/2024 11:11 AM [facility] Anion Gap 5 3 - 11 LAB CHEMISTRY METHOD 04/30/2024 11:11 AM [facility] Glucose 93 70 - 100 mg/dL LAB CHEMISTRY METHOD 04/30/2024 11:11 AM [facility] BUN 14 5 - 25 mg/dL LAB CHEMISTRY METHOD 04/30/2024 11:11 AM [facility] Creatinine 0.73 0.70 - 1.30 mg/dL LAB CHEMISTRY METHOD 04/30/2024 11:11 AM [facility] eGFR 102 >=60 mL/min/1. 73m2 LAB CHEMISTRY METHOD 04/30/2024 11:11 AM [facility] Comment:Calculation based on the Chronic Kidney Disease Epidemiology Collaboration (CKD-EPI) equation refit without adjustment for race. BUN/Creatinine Ratio 19.2 LAB CHEMISTRY METHOD 04/30/2024 11:11 AM [facility] Calcium 9.0 8.5 - 10.5 mg/dL LAB CHEMISTRY METHOD 04/30/2024 11:11 AM [facility] AST (SGOT) 82(H) 10 - 42 unit/L LAB CHEMISTRY METHOD 04/30/2024 11:11 AM [facility] ALT (SGPT) 160(H) 10 - 60 unit/L LAB CHEMISTRY METHOD 04/30/2024 11:11 AM [facility] Alkaline Phosphatase 55 42 - 121 unit/L LAB CHEMISTRY METHOD 04/30/2024 11:11 AM [facility] Total Protein 5.8(L) 6.0 - 8.0 g/dL LAB CHEMISTRY METHOD 04/30/2024 11:11 AM EDT [facility] Albumin 3.4 3.2 - 5.0 g/dL LAB CHEMISTRY METHOD 04/30/2024 11:11 AM EDT [facility] Total Bilirubin 1.2 0.0 - 1.4 mg/dL LAB CHEMISTRY METHOD 04/30/2024 11:11 AM EDT [facility] Blood Venous blood specimen / Unknown Venipuncture / Unknown 04/30/2024 8:11 AM EDT 04/30/2024 8:11 AM EDT Mike OLSEN LAB BLOOD ORDERABLES Erma brown Result [facility] [address] [place] [address], * Colonoscopy (05/26/2020) Colonoscopy No interpreta tion,abstr acted Anatomical Region Laterality Modality Other Historical Provider HEALTH MAINTENANCE Final Result from Last 3 Months or Most Recently Relevant to Health Maintenance Insurance [place] [address] [facility] Care Teams Sheeter Machine Operator Relationship Specialty Start Date End Date Mike Watson PA [address] [place] [id number] PCP - General Internal Medicine 01/31/24
--- OUTSIDE RECORDS SUMMARY | 2024-10-07 10:57 | XMS_ITS | Clinical Summary ---
Author Organization [facility] Address [address] [place] [address] Phone Care Team Providers Care Lockstitch Zipper Setter Name Role Phone DaxrohanbandarSussy Lambert DO Primary [...] file Medical Devices Not on file Insurance [facility] [place] [address] [place] [address] [place] [address] [place] [address] [place] [address] Care Teams Lockstitch Zipper Setter Relationship Specialty Start Date End Date Sussy Huber DO [address] [place] [id number] PCP - General Internal Medicine 04/08/20 Additional Source Comments The information contained in this document represents components of the legal health record. It is not the complete legal health record.[facility]
--- OUTSIDE RECORDS SUMMARY | 2024-10-07 10:57 | XMS_ITS | Encounter Summary ---
Author Organization [facility], Address [address] [place] [address] Phone Care Team Providers Care Yard Hostler Name Role Phone Hossein Marion MD Primary Care Provider [phone] Encounter Details Date Type Department Care Team (Late st Contact Info) Description 04/20/2021 Documentation Only [facility], [address] [place] [phone] Mani Bedolla MD [address] [place] [phone] Social History Tobacco Use Types Packs/Day Years [...] on filedocumented in this encounter Care Teams Yard Hostler Relationship Specialty Start Date End Date Hossein Marion MD PCP - General Internal Medicine 04/07/21 documented as of this encounter
== END 2024-10-07 10:41 | disposition home or self-care (01) ==
LOC: HO.HPS 10:13
PROVIDERS: PCP Physician Assistant Medical; Visit Provider Internal Medicine Pulmonary Disease
DX: J84.9 Interstitial pulmonary disease, unspecified (principal); R06.00 Dyspnea, unspecified
CPT/HCPCS: 99214

== ENCOUNTER 2024-10-07 10:13 | Outpatient (REF) | payer OTHER, SELFPAY ==
[2022-12-18 15:57] VITALS: BMI 28.8
[2024-10-07 12:30] LABS: HBsAGNum1 0.39 S/CO (0.00-0.99); Hepatitis B Surface Antigen Negative (Negative); ~HepC Num1 1.42 S/CO (0.00-0.79); ~Hepatitis C Antibody Reactive (Nonreactive)
[2024-10-14 18:43] LABS: Cytosolic 5'nuc 1A Ab IgG <5 Units; HMGCR Ab IgG <2 CU (<20); MDA5 Ab <11 SI (<11); NXP-2 (MJ) Ab <11 SI (<11); SRP Ab <11 SI (<11)
--- NOTE | 2024-12-09 11:15 | MHC.HEMONC ---
Addendum entered by Mert Walker RN 12/11/24 10:51: Pharmacist Mecca informed this nurse that pt is required to have already resulted Hep B core antibody test done before he can begin Rituximab the following morning. Nurse asked lab, and was informed that if pt waits until tomorrow morning to have this test drawn, it will not result until the afternoon, and that will be much too late to initiate Rituximab infusion. Nurse notified Jessica at Pulmonology, called pt at home, who agreed to come in today to have blood drawn one day in advance. Original Note: Pt booked for Rituxan on 12/12/24 and 12/26/24. Pt aware of dates. Pharmacy said they have the med. Pharmacy emailed and faxed with orders and information. PA and consent on chart.
== END 2024-10-07 10:14 | disposition home or self-care (01) ==
LOC: HO.LAB 10:13
PROVIDERS: PCP Physician Assistant Medical; Visit Provider Internal Medicine Pulmonary Disease
DX: J84.9 Interstitial pulmonary disease, unspecified (principal); R06.09 Other forms of dyspnea; Z11.59 Encounter for screening for other viral diseases
CPT/HCPCS: 36415; 83516; 83520; 84182; 86235; 86803; 87340

== ENCOUNTER 2024-11-19 09:38 | Outpatient (AMB) | payer OTHER, SELFPAY ==
[2022-12-18 15:57] VITALS: BMI 28.8
[2024-11-19 09:45] VITALS: BP 132/62; PULSE 57; O2SAT 98; BMI 26.7
--- NOTE | 2024-11-19 09:45 | A.OFFVIS_ITS ---
Vital Signs 11/19/24 09:45 Height 6 ft 2 in Weight 208 lb BMI 26.7 BP 132/62 Blood Pressure Location Rt brachial Position Sitting Pulse 57 Pulse Source Pulse Oximeter Pulse Oximetry (%) 98 Oxygen Delivery Method Room Air Intake Visit Reasons: Cough Allergies gluten Allergy (Severe, Verified 11/19/24 09:50) Diarrhea acetaminophen (From PERCOCET) Allergy (Unknown, Verified 11/19/24 09:50) VOMITING codeine (CODEINE) Allergy (Unknown, Verified 11/19/24 09:50) VOMITING oxycodone (From PERCOCET) Allergy (Unknown, Verified 11/19/24 09:50) VOMITING fluconazole Allergy (Verified 11/19/24 09:50) Unknown baclofen Adverse Reaction (Intermediate, Verified 11/19/24 09:50) Nightmare HPI HPI Cough: Details: 63-year-old? gentleman, lifetime nonsmoker, with underlying history of ankylosing? spondylitis followed by Rheumatology now on biologic, initially followed? for organizing pneumonia, chronic productive cough, and dyspnea on? exertion.? Patient previously hospitalized at [facility] with fungal pneumonia with Kathy and Aspergillus noted on? bronchial alveolar lavage cultures.? 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 consolidation therapy.? He has been discharged on voriconazole 400 twice a day and had improved symptom control, however he developed allergic reaction and required switching to IV micafungin.? He has had a total of 12 weeks weeks of IV micafungin therapy with significant improvement in his dyspnea and resolution of his productive cough.? Thereafter his PICC line was discontinued in January of 2021 and he completed pulmonary rehab.?Patient was switched to azathioprine and titrated slowly up to 200 mg daily with good control of his underlying pulmonary symptoms and titration off his chronic prednisone. Previously patient symptoms improved significantly on prednisone taper, however as patient has finished his prednisone taper his symptoms have recurred. He did have follow-up CT chest that showed essentially stable findings over the last 3 years, and specifically no worsening of his underlying interstitial lung disease. Thereafter, patient was tried on methotrexate and was titrated up to 10 mg weekly with only partial response including significant improvement in his cough, but worsening side effects including significant stiffness and slowly worsening dyspnea. He also was tried on mycophenolate mofetil up to 1 mg twice a day, with worsening symptom control. Now patient continues on 30 mg of prednisone with reasonable, but ever so slowly worsening control of his symptoms. He also continues to follow-up with [facility] and frontend engineer. After the last visit has been no significant changes, though overall with slowly worsening symptoms and he did have one minor exacerbation, but now has recovered to baseline without additional systemic glucocorticoids. [facility] Medical History Blister (nonthermal) of other finger, initial encounter Upper airway cough syndrome COVID-19 vaccine series completed ILD (interstitial lung disease) Ankylosing spondylitis Thoracic outlet syndrome COPD (chronic obstructive pulmonary disease) Acute hyponatremia Ankylosing spondylitis Chronic cough Organizing pneumonia Dyspnea on exertion Pneumonia Bronchitis GERD (gastroesophageal reflux disease) Hyperlipidemia Pulmonary nodules Social History Household Members: None Housing: House Do you presently have visiting nurse or other home services: No Alcohol intake: never Patient Tobacco Use Status: Never used Tobacco Second Hand Smoke Exposure: Yes (35 yr exposure at home) Advance Directives Date on File: 07/29/20 service: No Current occupational status: employed Review of Systems Const Denies daytime sleepiness, Denies excessive sweating, Denies fatigue, Denies fever(s), Denies lethargy, Denies malaise, Denies night sweats, Denies snoring and Denies weight loss Eyes Denies blurry vision and Denies itchy eyes ENT Denies nasal congestion, Denies post nasal drip, Denies sinus pain, Denies sinus pressure and Denies other ( Thrush) Card Denies chest pain, Denies pedal edema, Denies dyspnea, Reports dyspnea on exertion, Denies orthopnea and Denies paroxysmal nocturnal dyspnea Resp Reports cough, Denies hemoptysis, Denies excessive phlegm production, Denies dyspnea, Reports dyspnea on exertion, Denies snoring and Denies wheezing GI Denies abdominal pain and Denies heartburn Musc Denies myalgias, Denies arthralgias and Denies joint swelling Skin/Breast Denies rash Neuro Denies memory loss and Denies seizure-like activity Psych Denies abnormal sleep pattern, Denies anxiety and Denies memory loss Endo Denies excessive sweating, Denies fatigue and Denies heat intolerance Yusuf/Lymph Denies easy bruising Aller/Immun Denies itchy eyes, Denies seasonal rhinorrhea and Denies wheezing Physical Exam Vital Signs: Last Vital Signs Pulse 57 11/19/24 09:45 BP 132/62 11/19/24 09:45 Pulse Ox 98 11/19/24 09:45 Oxygen Delivery Method Room Air 11/19/24 09:45 BMI result Body Mass Index 26.7 Const General: no acute distress and alert Nutritional Appearance: not obese Orientation/consciousness: Other orientation findings ( oriented) HEENT Head: Yes atraumatic Eyes General: appearance normal, both eyes and all related structures Sclerae: sclerae normal EOM: EOMs intact bilaterally Neck Neck: Yes supple Lymphatic: no lymphadenopathy noted Resp Effort & Inspection: normal respiratory effort and no use of accessory muscles Auscultation: clear to auscultation bilaterally Cardio Rate: regular rate Rhythm: regular rhythm Heart sounds: no gallops, no murmurs and no rubs Skin General skin exam: other ( warm) Extrem General: No clubbing, No cyanosis and No edema Assessment & Plan Assessment & Plan (1) ILD (interstitial lung disease): Code(s): J84.9 - Interstitial pulmonary disease, unspecified Category: Medical Plan: Interstitial lung disease with fluctuating dyspnea on exertion that appears to be related to underlying systemic rheumatologic disease with suboptimal control on tumor necrosis factor antibody and with poor response to multiple steroid sparing agents, now on prednisone 30 mg daily with slowly worsening pulmonary symptoms. Still pending Rituxan approval. Well continue prednisone 30 mg daily at this time. Coding Level of Care Code Est Pt Level 3 (91376) Diagnoses ILD (interstitial lung disease) J84.9
--- OUTSIDE RECORDS SUMMARY | 2024-11-19 10:19 | XMS_ITS | Continuity of Care Document ---
Author Organization [facility] Address [address] [address] Insurance Providers Payer Plan Claims Address Claims Phone Policy Number Group Number Relation Employer Guarantor Name Guarantor Guarantor Address Guarantor Phone [employer] ARE [address], [address], [place] [address] tel:[phone] [id number] [id number] Self Moe Harman [address] [place] [address] [facility] [address], [address] [address] tel:[phone] [id number] Self Moe Del Angelok [address] [place] [address] [facility], [address], [place] [address] tel:[phone] [id number] Self Moe Harman [address] [place] [address] Problems Condition ICD9 code ICD10 code SNOMED code Start Date End Date S tatus Encounter for screening for other metabolic disorders Z13.228 Results No Results Allergies, adverse reactions, alerts No known allergies and adverse reactions Medications No administered medications reported Vital Signs No vital signs reported Social History No smoking Hx information available
== END 2024-11-19 10:03 | disposition home or self-care (01) ==
LOC: HO.HPS 09:38
PROVIDERS: PCP Physician Assistant Medical; Visit Provider Internal Medicine Pulmonary Disease
DX: J84.9 Interstitial pulmonary disease, unspecified (principal)
CPT/HCPCS: 99213

== ENCOUNTER 2024-12-11 11:41 | Outpatient (REF) | payer OTHER, SELFPAY ==
[2022-12-18 15:57] VITALS: BMI 28.8
[2024-12-11 12:00] LABS: MANUAL DIFF FLAG NO
[2024-12-11 13:07] LABS: Hematocrit 45.0 % (42.0-52.0); Hemoglobin 14.2 g/dl (14.0-18.0); Imm Gran Abs Auto 0.14 X10*3/uL (0.00-0.03); Imm Gran Pct Auto 1.8 % (0.0-0.4); Lymphocytes Absolute Auto 0.5 X10*3/uL (1.2-4.9); Mean Corpuscular HGB Conc 31.6 g/dl (31.0-36.0); Mean Corpuscular Hemoglobin 28.2 pg (27.0-33.0); Mean Corpuscular Volume 89.5 fL (80.0-98.0); NRBC Abs Auto 0.000 X10*3/uL (0.0-0.012); NRBC Pct Auto 0.0 /100WBC (0.0-0.2); Platelet Count 239 X10*3/uL (160-400); Red Blood Count 5.03 X10*6/uL (4.60-5.80); White Blood Count 7.6 X10*3/uL (4.8-10.8)
[2024-12-11 13:36] LABS: Alanine Aminotransferase 73 U/L (0-40); Albumin Level 4.5 g/dL (3.5-5.0); Alkaline Phosphatase 38 U/L (39-117); Anion Gap 10 (12-20); Aspartate Amino Transferase 51 U/L (5-37); Blood Urea Nitrogen 16 mg/dL (9-16); Calcium 9.5 mg/dL (8.4-10.2); Carbon Dioxide 28 mmol/L (22-29); Chloride 104 mmol/L (96-108); Estimated Glomerular Filt Rate > 60; Potassium 4.2 mmol/L (3.3-5.1); Sodium 138 mmol/L (135-145); Total Protein 7.0 g/dL (6.5-8.0)
--- OUTSIDE RECORDS SUMMARY | 2024-12-11 14:42 | XMS_ITS | Continuity of Care Document ---
Author Organization [facility] Address [address] [address] Insurance Providers Payer Plan Claims Address Claims Phone Policy Number Group Number Relation Employer Guarantor Name Guarantor Guarantor Address Guarantor Phone [facility] ARE [address], [address], [place] [address] tel:[phone] [id number] Self Moe Taterook [address] [place] [address] [facility] [address], [address] [address] tel:[phone] [id number] [id number] Self Moe Del Angelok [address] [place] [address] [facility], [address], [place] [address] tel:[phone] Self Moe Harman [address] [place] [address] Problems Condition ICD9 code ICD10 code SNOMED code Start Date End Date S tatus Encounter for screening for other metabolic disorders Z13.228 Results No Results Allergies, adverse reactions, alerts No known allergies and adverse reactions Medications No administered medications reported Vital Signs No vital signs reported Social History No smoking Hx information available
[2024-12-12 04:30] LABS: HBS Num1 1.01 mIU/mL (0-7.99); HBc Num1 0.03 S/CO (0.00-0.79); HBsAGNum1 0.45 S/CO (0.00-0.99); Hepatitis B Surface Antigen Negative (Negative); ~Hepatitis B Surface Antibody NONREACTIVE (Nonreactive)
== END 2024-12-11 11:42 | disposition home or self-care (01) ==
LOC: HO.LAB 11:41
PROVIDERS: PCP Physician Assistant Medical; Visit Provider Internal Medicine Pulmonary Disease
DX: J84.9 Interstitial pulmonary disease, unspecified (principal)
CPT/HCPCS: 36415; 80053; 85025; 86704; 86706; 87340

== ENCOUNTER 2025-01-01 12:46 | Outpatient (AMB) | payer OTHER, SELFPAY ==
[2022-12-18 15:57] VITALS: BMI 28.8
[2025-01-01 13:02] VITALS: BP 134/58; PULSE 55; O2SAT 96
--- NOTE | 2025-01-01 13:02 | MHC.OFFVIS ---
Vital Signs 01/01/25 13:02 01/01/25 13:04 Height 6 ft 2 in Weight 203 lb BMI 26.1 BP 134/58 L Blood Pressure Location Rt brachial Position Sitting Pulse 55 Pulse Source Pulse Oximeter Pulse Oximetry (%) 96 Oxygen Delivery Method Room Air Intake Visit Reasons: ILD Allergies gluten Allergy (Severe, Verified 01/01/25 13:04) Diarrhea acetaminophen (From PERCOCET) Allergy (Unknown, Verified 01/01/25 13:04) VOMITING codeine (CODEINE) Allergy (Unknown, Verified 01/01/25 13:04) VOMITING oxycodone (From PERCOCET) Allergy (Unknown, Verified 01/01/25 13:04) VOMITING fluconazole Allergy (Verified 01/01/25 13:04) Unknown baclofen Adverse Reaction (Intermediate, Verified 01/01/25 13:04) Nightmare HPI HPI ILD: Details: 64-year-old? gentleman, lifetime nonsmoker, with underlying history of ankylosing? spondylitis followed by Rheumatology now on biologic, initially followed? for organizing pneumonia, chronic productive cough, and dyspnea on? exertion.? Patient previously hospitalized at [facility] with fungal pneumonia with Kathy and Aspergillus noted on? bronchial alveolar lavage cultures.? 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 consolidation therapy.? He has been discharged on voriconazole 400 twice a day and had improved symptom control, however he developed allergic reaction and required switching to IV micafungin.? He has had a total of 12 weeks weeks of IV micafungin therapy with significant improvement in his dyspnea and resolution of his productive cough.? Thereafter his PICC line was discontinued in January of 2021 and he completed pulmonary rehab.?Patient was switched to azathioprine and titrated slowly up to 200 mg daily with good control of his underlying pulmonary symptoms and titration off his chronic prednisone. Previously patient symptoms improved significantly on prednisone taper, however as patient has finished his prednisone taper his symptoms have recurred. He did have follow-up CT chest that showed essentially stable findings over the last 3 years, and specifically no worsening of his underlying interstitial lung disease. Thereafter, patient was tried on methotrexate and was titrated up to 10 mg weekly with only partial response including significant improvement in his cough, but worsening side effects including significant stiffness and slowly worsening dyspnea. He also was tried on mycophenolate mofetil up to 1 mg twice a day, with worsening symptom control. Now patient continues on 30 mg of prednisone with reasonable, but ever so slowly worsening control of his symptoms. He also continues to follow-up with [facility] and non destructive evaluation specialist. After the last visit patient was started on Rituxan and had 2 infusions with improving symptom control. He was able to down titrate prednisone back to 30 mg daily. His Simponi has been held by his non destructive evaluation specialist pending evaluation of Rituxan effect. He is able to tolerate more physical activity. [facility] Medical History Blister (nonthermal) of other finger, initial encounter Upper airway cough syndrome COVID-19 vaccine series completed ILD (interstitial lung disease) Ankylosing spondylitis Thoracic outlet syndrome COPD (chronic obstructive pulmonary disease) Acute hyponatremia Ankylosing spondylitis Chronic cough Organizing pneumonia Dyspnea on exertion Pneumonia Bronchitis GERD (gastroesophageal reflux disease) Hyperlipidemia Pulmonary nodules Social History Household Members: None Housing: House Do you presently have visiting nurse or other home services: No Alcohol intake: never Patient Tobacco Use Status: Never used Tobacco Second Hand Smoke Exposure: Yes (35 yr exposure at home) Advance Directives Date on File: 07/29/20 service: No Current occupational status: employed Review of Systems Const Denies daytime sleepiness, Denies excessive sweating, Denies fatigue, Denies fever(s), Denies lethargy, Denies malaise, Denies night sweats, Denies snoring and Denies weight loss Eyes Denies blurry vision and Denies itchy eyes ENT Denies nasal congestion, Denies post nasal drip, Denies sinus pain, Denies sinus pressure and Denies other ( Thrush) Card Denies chest pain, Denies pedal edema, Denies dyspnea, Reports dyspnea on exertion (Improving), Denies orthopnea and Denies paroxysmal nocturnal dyspnea Resp Reports cough (At baseline), Denies hemoptysis, Denies excessive phlegm production, Denies dyspnea, Reports dyspnea on exertion (Improving), Denies snoring and Denies wheezing GI Denies abdominal pain and Denies heartburn Musc Denies myalgias, Denies arthralgias and Denies joint swelling Skin/Breast Denies rash Neuro Denies memory loss and Denies seizure-like activity Psych Denies abnormal sleep pattern, Denies anxiety and Denies memory loss Endo Denies excessive sweating, Denies fatigue and Denies heat intolerance Yusuf/Lymph Denies easy bruising Aller/Immun Denies itchy eyes, Denies seasonal rhinorrhea and Denies wheezing Physical Exam Vital Signs: Last Vital Signs Pulse 55 01/01/25 13:02 BP 134/58 L 01/01/25 13:02 Pulse Ox 96 01/01/25 13:02 Oxygen Delivery Method Room Air 01/01/25 13:02 BMI result Body Mass Index 26.1 Const General: no acute distress and alert Nutritional Appearance: not obese Orientation/consciousness: Other orientation findings ( oriented) HEENT Head: Yes atraumatic Eyes General: appearance normal, both eyes and all related structures Sclerae: sclerae normal EOM: EOMs intact bilaterally Neck Neck: Yes supple Lymphatic: no lymphadenopathy noted Resp Effort & Inspection: normal respiratory effort and no use of accessory muscles Auscultation: clear to auscultation bilaterally Cardio Rate: regular rate Rhythm: regular rhythm Heart sounds: no gallops, no murmurs and no rubs Skin General skin exam: other ( warm) Extrem General: No clubbing, No cyanosis and No edema Assessment & Plan Assessment & Plan (1) ILD (interstitial lung disease): Code(s): J84.9 - Interstitial pulmonary disease, unspecified Category: Medical Plan: Interstitial lung disease with fluctuating dyspnea on exertion that appears to be related to underlying systemic rheumatologic disease with suboptimal control on tumor necrosis factor antibody and with poor response to multiple steroid sparing agents, now started on Rituxan with some symptomatic improvement. Continue prednisone 30 mg daily for the next 2 weeks, then titrate down to 20 mg daily. Coding Level of Care Code Est Pt Level 4 (80963) Diagnoses ILD (interstitial lung disease) J84.9
[2025-01-01 13:04] VITALS: BMI 26.1
--- OUTSIDE RECORDS SUMMARY | 2025-01-01 18:30 | XMS_ITS | Continuity of Care Document ---
Author Organization [facility] Address [address] [address] Insurance Providers Payer Plan Claims Address Claims Phone Policy Number Group Number Relation Employer Guarantor Name Guarantor Guarantor Address Guarantor Phone [facility] ARE [address], [address], [place] [address] tel:[id number] Self Moe Harman [address] [place] [address] [facility] [address], [address], [place] [address] tel:[phone] Self Moe Harman [address] [place] [address] [facility], [address], [place] [address] tel:[phone] [id number] Self Moe Harman [address] [place] [address] Problems Condition ICD9 code ICD10 code SNOMED code Start Date End Date S tatus Encounter for screening for other metabolic disorders Z13.228 Results No Results Allergies, adverse reactions, alerts No known allergies and adverse reactions Medications No administered medications reported Vital Signs No vital signs reported Social History No smoking Hx information available
== END 2025-01-01 13:46 | disposition home or self-care (01) ==
LOC: HO.HPS 12:47
PROVIDERS: Visit Provider Internal Medicine Pulmonary Disease
DX: J84.9 Interstitial pulmonary disease, unspecified (principal)
CPT/HCPCS: 99214

== ENCOUNTER 2025-02-09 14:23 | Outpatient (AMB) | payer OTHER, SELFPAY ==
[2022-12-18 15:57] VITALS: BMI 28.8
--- NOTE | 2025-02-09 14:27 | MHC.OFFVIS ---
Vital Signs 02/09/25 14:33 Height 6 ft 2 in Weight 201 lb BMI 25.8 BP 132/62 Blood Pressure Location Rt brachial Position Sitting Pulse 58 Pulse Source Pulse Oximeter Pulse Oximetry (%) 99 Oxygen Delivery Method Room Air Intake Visit Reasons: Cough Allergies gluten Allergy (Severe, Verified 01/01/25 13:04) Diarrhea acetaminophen (From PERCOCET) Allergy (Unknown, Verified 01/01/25 13:04) VOMITING codeine (CODEINE) Allergy (Unknown, Verified 01/01/25 13:04) VOMITING oxycodone (From PERCOCET) Allergy (Unknown, Verified 01/01/25 13:04) VOMITING fluconazole Allergy (Verified 01/01/25 13:04) Unknown baclofen Adverse Reaction (Intermediate, Verified 01/01/25 13:04) Nightmare HPI HPI Cough: Details: 64-year-old? gentleman, lifetime nonsmoker, with underlying history of ankylosing? spondylitis followed by Rheumatology now on biologic, initially followed? for organizing pneumonia, chronic productive cough, and dyspnea on? exertion.? Patient previously hospitalized at [facility] with fungal pneumonia with Kathy and Aspergillus noted on? bronchial alveolar lavage cultures.? 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 consolidation therapy.? He has been discharged on voriconazole 400 twice a day and had improved symptom control, however he developed allergic reaction and required switching to IV micafungin.? He has had a total of 12 weeks weeks of IV micafungin therapy with significant improvement in his dyspnea and resolution of his productive cough.? Thereafter his PICC line was discontinued in January of 2021 and he completed pulmonary rehab.?Patient was switched to azathioprine and titrated slowly up to 200 mg daily with good control of his underlying pulmonary symptoms and titration off his chronic prednisone. Previously patient symptoms improved significantly on prednisone taper, however as patient has finished his prednisone taper his symptoms have recurred. He did have follow-up CT chest that showed essentially stable findings over the last 3 years, and specifically no worsening of his underlying interstitial lung disease. Thereafter, patient was tried on methotrexate and was titrated up to 10 mg weekly with only partial response including significant improvement in his cough, but worsening side effects including significant stiffness and slowly worsening dyspnea. He also was tried on mycophenolate mofetil up to 1 mg twice a day, with worsening symptom control. Now patient continues on 30 mg of prednisone with reasonable, but ever so slowly worsening control of his symptoms. He also continues to follow-up with [facility] and foot caster. Patient had to Rituxan infusions with improved control. After the last visit patient was able to down titrate prednisone 20 mg daily and with improving symptoms. His Simponi has been held by his foot caster pending Rituxan therapy. [facility] Medical History Blister (nonthermal) of other finger, initial encounter Upper airway cough syndrome COVID-19 vaccine series completed ILD (interstitial lung disease) Ankylosing spondylitis Thoracic outlet syndrome COPD (chronic obstructive pulmonary disease) Acute hyponatremia Ankylosing spondylitis Chronic cough Organizing pneumonia Dyspnea on exertion Pneumonia Bronchitis GERD (gastroesophageal reflux disease) Hyperlipidemia Pulmonary nodules Social History Household Members: None Housing: House Do you presently have visiting nurse or other home services: No Alcohol intake: never Patient Tobacco Use Status: Never used Tobacco Second Hand Smoke Exposure: Yes (35 yr exposure at home) Advance Directives Date on File: 07/29/20 service: No Current occupational status: employed Review of Systems Const Denies daytime sleepiness, Denies excessive sweating, Denies fatigue, Denies fever(s), Denies lethargy, Denies malaise, Denies night sweats, Denies snoring and Denies weight loss Eyes Denies blurry vision and Denies itchy eyes ENT Denies nasal congestion, Denies post nasal drip, Denies sinus pain, Denies sinus pressure and Denies other ( Thrush) Card Denies chest pain, Denies pedal edema, Denies dyspnea, Reports dyspnea on exertion (Improving), Denies orthopnea and Denies paroxysmal nocturnal dyspnea Resp Denies cough, Denies hemoptysis, Denies excessive phlegm production, Denies dyspnea, Reports dyspnea on exertion (Improving), Denies snoring and Denies wheezing GI Denies abdominal pain and Denies heartburn Musc Denies arthralgias (Improving) and Denies joint swelling Skin/Breast Denies rash Neuro Denies memory loss and Denies seizure-like activity Psych Denies abnormal sleep pattern, Denies anxiety and Denies memory loss Endo Denies excessive sweating, Denies fatigue and Denies heat intolerance Yusuf/Lymph Denies easy bruising Aller/Immun Denies itchy eyes, Denies seasonal rhinorrhea and Denies wheezing Physical Exam Vital Signs: Last Vital Signs Pulse 58 02/09/25 14:33 BP 132/62 02/09/25 14:33 Pulse Ox 99 02/09/25 14:33 Oxygen Delivery Method Room Air 02/09/25 14:33 BMI result Body Mass Index 25.8 Const General: no acute distress and alert Nutritional Appearance: not obese Orientation/consciousness: Other orientation findings ( oriented) HEENT Head: Yes atraumatic Eyes General: appearance normal, both eyes and all related structures Sclerae: sclerae normal EOM: EOMs intact bilaterally Neck Neck: Yes supple Lymphatic: no lymphadenopathy noted Resp Effort & Inspection: normal respiratory effort and no use of accessory muscles Auscultation: clear to auscultation bilaterally Cardio Rate: regular rate Rhythm: regular rhythm Heart sounds: no gallops, no murmurs and no rubs Skin General skin exam: other ( warm) Extrem General: No clubbing, No cyanosis and No edema Assessment & Plan Assessment & Plan (1) ILD (interstitial lung disease): Code(s): J84.9 - Interstitial pulmonary disease, unspecified Category: Medical (2) Ankylosing spondylitis: Code(s): M45.9 - Ankylosing spondylitis of unspecified sites in spine Category: Medical Plan Interstitial lung disease with fluctuating dyspnea on exertion that appears to be related to underlying systemic rheumatologic disease with suboptimal control on tumor necrosis factor antibody and with poor response to multiple steroid sparing agents, with significant improvement on Rituxan. Will titrate prednisone down to 10 mg daily for 4 weeks, then again down to 7.5 mg, if symptoms not worsen. Medications: New prednisone Take 4 tabs daily for 4 weeks, then take 3 tabs daily for 4 weeks 2.5 mg PO DAILY 200 tabs 0RF Discontinued prednisone Discontinued Reason: Doctor's Order 30 mg (3 x 10 mg) PO DAILY 30 days 90 tabs 3RF NS Coding Level of Care Code Est Pt Level 4 (64613) Diagnoses ILD (interstitial lung disease) J84.9 Ankylosing spondylitis M45.9
[2025-02-09 14:33] VITALS: BP 132/62; PULSE 58; O2SAT 99; BMI 25.8
--- OUTSIDE RECORDS SUMMARY | 2025-02-09 16:43 | XMS_ITS | Clinical Summary ---
Author Organization [facility] Address [address] [facility] [address] [place] [address] Phone Care Team Providers Care Mixer And Scaler Name Role Phone ChristianobandarSussy Lambert DO Primary Car e Provider Social [...] file Medical Devices Not on file Insurance [facility] [address] [place] [address] [place] [address] [place] [address] [facility] Care Teams Mixer And Scaler Relationship Specialty Start Date End Date Sussy Huber DO [address] [place] [address] PCP - General Internal Medicine 04/08/20 Additional Source Comments The information contained in this document represents components of the legal health record. It is not the complete legal health record.[facility]
--- OUTSIDE RECORDS SUMMARY | 2025-02-09 16:44 | XMS_ITS | Encounter Summary ---
Author Organization [facility] Address [address] [place] [address] Support Name Relationship Address Phone Mike Taterook Brother [address] [place] [address] Kareen Hammer Extended family member Unknown + Care Team Providers Care Funeral Director/Embalmer Name Role Phone Mike Watson Primary Care Provider [phone] Encounter Details Date Type Department Care Team (Late st Contact Info) Description 12/08/2024 Results Follow-Up [facility] [address] [place] [address] Ida Caldwell NP [address] [place] [address] [address] [place] [address] Social History Tobacco Use Types Packs/Day Years [...] your loved ones. For example, early childhood lead teacher or elderly care for an older adult? [...] Date Recorded What is your living situation? Unrecognized valu e 04/21/2024 Sex and Gender Information Value Date Recorded Sex Assigned at Not on file Legal Sex Male 4:32 PM EST Gender Identity Not on file Sexual Orientation Not on file documented as of this encounter Plan of Treatment Upcoming Encounters Date Type Department Care Team (Late st Contact Info) Description 02/24/2025 9:50 AM EST Office Visit [facility] [address] [place] [address] Golden Solano MD [address] [place] [address] [address] [place] [address] 07/27/2025 8:15 AM EDT Office Visit Adult Medicine [facility] [address] [place] [address] Mike Watson PA [address] [place] [phone] documented as of this encounter Visit Diagnoses Not on filedocumented in this encounter Additional Health Concerns Assessment Noted Time PHQ-9 Depression Total Score: 0 04/18/19 25 9:59 AM EST documented as of this encounter Care Teams Funeral Director/Embalmer Relationship Specialty Start Date End Date Mike Watson PA [address] [place] [address] PCP - General Internal Medicine 01/31/24 documented as of this encounter
--- OUTSIDE RECORDS SUMMARY | 2025-02-09 16:44 | XMS_ITS | Encounter Summary ---
Author Organization [facility], Address [address] [place] [address] Phone Care Team Providers Care Electrical Wirer Name Role Phone Hossein Marion MD Primary Care Provider [phone] Encounter Details Date Type Department Care Team (Late st Contact Info) Description 04/20/2021 Documentation Only [facility], [address] [place] [phone] Mani Bedolla MD [address] [place] [phone] Social History Tobacco Use Types Packs/Day Years [...] on filedocumented in this encounter Care Teams Electrical Wirer Relationship Specialty Start Date End Date Hossein Marion MD PCP - General Internal Medicine 04/07/21 documented as of this encounter
--- OUTSIDE RECORDS SUMMARY | 2025-02-09 16:44 | XMS_ITS | Clinical Summary ---
Author Organization [facility] Prior to 07/12/[address] [place] [address] Care Team Providers Care Planting Material Carrier Name Role Phone Sussy Thurston DO Primary [...] 2024 8, 02/11/2015, 10/29/2012, Additional history exists Pneumococcal Vaccine (1 of 1 - PCV) 2025 RSV Adult > 60+ Yrs or (1 [...] Group Subscriber ID Effective Dates Phone Address [facility] [id number] 2020-Present [address] [facility] [address] [place] [address] HMO Care Teams Planting Material Carrier Relationship Specialty Start Date End Date Sussy Thurston DO PCP - General Ending Machine Operator 04/21/20
--- OUTSIDE RECORDS SUMMARY | 2025-02-09 16:44 | XMS_ITS | Encounter Summary ---
Author Organization [facility] Address [address] [place] [address] Support Name Relationship Address Phone Mike Harman Brother [address] [place] [address] Kareen Hammer Extended family member Unknown + Care Team Providers Care Erecting Crane Operator Name Role Phone Mike Watson Primary Care Provider [phone] Encounter Details Date Type Department Care Team (Late st Contact Info) Description 01/26/2025 Results Follow-Up [address] [phone] Mike Watson PA [address] [place] [phone] Social History Tobacco Use Types Packs/Day Years [...] for your loved ones. For example, child psychometrist or elderly care for an older adult? [...] Description 02/24/2025 9:50 AM EST Office Visit [facility] [address] [place] [address] Golden Solano MD [address] [place] [address] [address] [place] [address] 07/27/2025 8:15 AM EDT Office Visit Adult Medicine [facility] [address] [place] [address] Mike Watson PA [address] [place] [phone] documented as of this encounter Visit Diagnoses Not on filedocumented in this encounter Additional Health Concerns Assessment Noted Time PHQ-9 Depression Total Score: 0 01/27/20 8:58 AM EST documented as of this encounter Care Teams Erecting Crane Operator Relationship Specialty Start Date End Date Mike Watson PA [address] [place] [address] PCP - General Internal Medicine 01/31/24 documented as of this encounter
--- OUTSIDE RECORDS SUMMARY | 2025-02-09 16:44 | XMS_ITS | Clinical Summary ---
Author Organization [facility], Address [address] [place] [address] [place] [address] Phone Care Team Providers Care Photographic Enlarger Operator Name Role Phone Hossein Marion MD Primary Care Provider [phone] Allergies Active Allergy Reactions Criticality Noted Date [...] 09/2020 Influenza Vaccine (#1) 2024 01/21/2018 Insurance [facility] Care Teams Photographic Enlarger Operator Relationship Specialty Start Date End Date Hossein Marion MD PCP - General Internal Medicine 04/07/21
--- OUTSIDE RECORDS SUMMARY | 2025-02-09 16:44 | XMS_ITS | Clinical Summary ---
Author Organization [facility] [employer] [facility] Address [address] [place] [address] Phone Support Name Relationship Address Phone Mike Merino Brother [address] [place] [address] Kareen Merino Extended family member Unknown + Care Team Providers Care Card Room Manager Name Role Phone Mike Watson Primary Care Provider [phone] Allergies Active Allergy Reactions Criticality Noted Date [...] PAIN). 100 g 3 01/18/20 24 Active folic acid (FOLVITE) 1 mg tablet Take 1 tablet (1 mg total) by mouth 1 (one) time each day. 30 each 03/24/19 25 026 Active predniSONE (DELTASONE) 10 mg tablet Take 3 tablets (30 mg total) by mouth 1 (one) time each day. patient is doing taper dose Active DILT-XR 120 mg 24 hr capsule TAKE ONE CAPSULE BY MOUTH EVERY DAY 90 capsule 2 08/09/19 25 Active metoprolol succinate (TOPROL-XL) 50 mg 24 hr tablet Take 1 tablet (50 mg total) by mouth 1 (one) time each day. Do not crush or chew. Active isosorbide mononitrate (IMDUR) 60 mg 24 hr tablet TAKE ONE TABLET BY MOUTH EVERY DAY 90 tablet 1 11/14/19 25 Active omeprazole (PriLOSEC) [address] capsule TAKE ONE CAPSULE BY MOUTH EVERY DAY 90 capsule 12/23/19 25 Active cetirizine (ZyrTEC) 10 mg tablet TAKE ONE TABLET BY MOUTH EVERY DAY 90 tablet 1 12/25/19 25 Active atorvastatin (LIPITOR) 20 mg tablet TAKE 1 TABLET BY MOUTH ONCE A DAY. 90 tablet 3 01/23/20 25 Active rituximab (RITUXAN IV) Infuse 568 mg into a venous catheter. Active triamcinolone (KENALOG) 0.1 % lotion Apply topically 2 (two) times a day. 60 mL 3 01/27/20 25 Active pregabalin (LYRICA) 100 mg capsule TAKE ONE CAPSULE BY MOUTH TWICE A DAY (MAX 200MG/DAY) 60 capsule 02/07/20 25 Active atorvastatin (LIPITOR) 20 mg tablet Take 1 tablet (20 mg total) by mouth 1 (one) time each day. 90 tablet 3 01/21/20 24 025 Discontinued pregabalin (LYRICA) 100 mg capsule TAKE ONE CAPSULE BY MOUTH TWICE A DAY (MAX 200MG/DAY) 60 capsule 01/07/20 25 025 Discontinued Active Problems Problem Noted [...] lung disease) 01/31/2021 Overview (12/24/2023): [place] with [facility]m Evaluated by [facility] pulmonology who recommended referral to [facility] CAD (coronary artery disease) 10/29/2020 Overview (12/24/2023): [...] they were to faint. Assessment & Plan (10/24/2024 3:12 PM EDT): The patient had been reporting ongoing chronic shortness of breath which when exacerbated causes chest discomfort. Recent left heart catheterization February 2024 showed minimal luminal regularities in left main, left circumflex and RCA with 40% stenosis in the proximal LAD. His last echocardiogram also showed normal LV function and no significant valvular disease. He will continue medical therapy with aspirin, statin, isosorbide mononitrate, beta martin and diltiazem as prescribed. Patient advised to seek emergency medical attention by calling 911 if they were to develop severe dyspnea, chest pain that did not resolve with rest or nitroglycerin, or if they were to faint. Orders: ECG 12 lead Assessment & Plan (04/16/2024 8:42 AM EST): [...] and the less than 0.1% risk for [place], stroke or . The patient understands and [...] isosorbide mononitrate swelling below. Assessment & Plan (10/24/2024 3:12 PM EDT): Blood pressure is on the soft side today, 98/60. But as described above he states his blood pressure varies and often is 130s over 70s when he checks it. He states he has not noted his systolic pressure being less than 90 ever. I advised that he begin taking his Toprol in the evening for more even blood pressure control. Assessment & Plan (04/16/2024 8:42 AM EST): [...] with routine medical care. Assessment & Plan (10/24/2024 3:12 PM EDT): Continue on statin. Last LDL cholesterol in April 2024 showing a level of 26 demonstrating excellent control. Assessment & Plan (04/16/2024 8:42 AM EST): [...] Encounters Date Type Department Care Team Description 01/26/2025 10:00 AM EST Lab Draw [address] Need for vaccination against Streptococcus pneumoniae; Stenosis of carotid artery, unspecified laterality; Coronary artery disease due to lipid rich plaque; Eosinophilic esophagitis; Primary hypertension; Hypercholesterolemia; ILD (interstitial lung disease) (CMS/HCC V24, CMS/HCC V28); Aneurysm of ascending aorta without rupture (CMS/HCC V24) 01/26/2025 9:00 AM EST Office Visit Adult Medicine [address] [phone] Mike Watson PA ILD (interstitial lung disease) (CMS/HCC V24, CMS/HCC V28) (Primary Dx); Need for vaccination against Streptococcus pneumoniae; Stenosis of carotid artery, unspecified laterality; Coronary artery disease due to lipid rich plaque; Eosinophilic esophagitis; Primary hypertension; Hypercholesterolemia; Aneurysm of ascending aorta without rupture (CMS/HCC V24); Sensorineural hearing loss (SNHL) of both ears 01/26/2025 Results Follow-Up Adult Medicine [address] [phone] Mike Watson PA 12/08/2024 Results Follow-Up [facility] [address] [place] [address] Ida Caldwell NP 11/12/2024 10:00 AM EDT Ancillary Procedure [facility] [address] [place] [address] Palpitations from Last 3 Months Immunizations Immunization Administration Dates Next Due H1N1 Inj Preservative [...] 12 & older) Bivalent, COVID-19 1010/2021 Pneumococcal conjugate 20 va lent (Prevnar 20, PCV 20) 2mo and older 01/26/2025 Pneumococcal polysaccharide 23 valent (Pneumovax 23) 2yo and older 12/02/2021 Td Tetanus diptheria (Tdvax) 7yo and older 12/02 Tdap Tetanus diptheria acell ular pertussis (Boostrix; Adacel) 7yo and older 03/05/2009 Zoster recombinant (Shingrix ) 19yo and older 07/19/2021,05/13/2021 Surgical History Surgery Date Site/Laterality Comments OTHER SURGICAL HISTORY 09/12/2013 PROCEDURE: HI PYELOTOMY WITH REMOVAL CALCULUS; COMMENT: cystoscopic Dr. Garcia ESOPHAGOGASTRODUODENOSCOPY 02/13/2012 PROCEDURE: HI EGD TRANSORAL BIOPSY SINGLE/MULTIPLE; COMMENT: furrows in the esophagus, bx: Eosinophilic esophagitis COLONOSCOPY 05/26/2020 N/A PROCEDURE: HISTORICAL COLONOSCOPY; COMMENT: Diminutive colonic polyps x2: Hyperplastic x1, SSA x1. CARDIAC CATHETERIZATION DONE ON 02/14/2024 AT [facility] [place] INDICATIONS:Abnormal Coronary CTA Medical History [...] care for your loved ones. For example, childcare aide or elderly care for an older adult? [...] on file Sexual Orientation Not on file Last Filed Vital Signs Vital Sign Reading Time Taken Comments Blood Pressure 118/58 01/26/2025 8:54 AM EST Pulse 59 01/26/2025 8:54 AM EST Temperature 36.8 C (98.3 F) 01/26/2025 8:54 AM EST Respiratory Rate 16 01/26/2025 8:54 AM EST Oxygen Saturation 97% 01/26/2025 8:54 AM EST Inhaled Oxygen Concentration - - Weight 94 kg (207 lb 3.2 oz) 01/26/2025 8:54 AM EST Height 188 cm (6' 2 ) 01/26/2025 8:54 AM EST Body Mass Index 26.6 01/26/2025 8:54 AM EST Plan of Treatment Upcoming Encounters Date Type Department Care Team (Late st Contact Info) Description 02/24/2025 9:50 AM EST Office Visit [facility] [address] [place] [phone] Golden Solano MD [address] [place] [address] [address] [place] [phone] 07/27/2025 8:15 AM EDT Office Visit Adult Medicine [address] [phone] Mike Watson PA [address] [place] [phone] Health Maintenance Due Date Last Done Comments RSV Immunization Adult Patients (1 - Risk 50-74 years 1-dose series) 2010 HIV Screening 01/21/2022 Social Influencers of Health Screening 04/21/2025 04/21/2024 COVID-19 Vaccine (9 - Moderna risk season) 2025 11/19/2024, 10/24/2023, 06/15/2022, Additional history exists Colorectal Cancer Screening: Colonoscopy 05/26/2025 05/26/2020 Hypertension/CHF/CAD Annual BMP Blood Test 01/26/2026 01/26/2025, 04/30/2024, 04/10/2024, Additional history exists Cholesterol Screening (Lipid Panel) 01/26/2030 01/26/2025, 04/30/2024, 10/12/2023, Additional history exists DTaP,Tdap,and Td Vaccines (3 - Td or Tdap) 12/03/2031 12/02/2021, 03/05/2009 Zoster Vaccines Completed 07/19/2021, 05/13/2021 Hepatitis C Screening Completed 04/30/2024 , 03/14/2024, 10/09/2022 Influenza Vaccine Completed 11/19/2024, , 12/02/2021, Additional history exists Depression Screening Completed 01/26/2025 Pneumococcal Vaccine: 50+ Years Completed 01/26/2025, 12/02/2021 HIB Vaccines Aged Out No longer eligi ble based on patient's age to complete this topic HPV Vaccines Aged Out No longer eligi ble based on patient's age to complete this topic Hepatitis A Vaccines Aged Out No long er eligible based on patient's age to complete this topic Hepatitis B Vaccines Aged Out No long [...] Diagnosis Comments CBC WITH AUTO DIFFERENTIAL Routine 01/26/2025 10:04 AM EST Need for vaccination against Streptococcus pneumoniae Stenosis of carotid artery, unspecified laterality Coronary artery disease due to lipid rich plaque Eosinophilic esophagitis Primary hypertension Hypercholesterolemia ILD (interstitial lung disease) (CMS/HCC V24, CMS/HCC V28) Aneurysm of ascending aorta without rupture (CMS/HCC V24) LIPID PANEL WITH REFLEX TO DIRECT LDL Routine 01/26/2025 10:04 AM EST Need for vaccination against Streptococcus pneumoniae Stenosis of carotid artery, unspecified laterality Coronary artery disease due to lipid rich plaque Eosinophilic esophagitis Primary hypertension Hypercholesterolemia ILD (interstitial lung disease) (CMS/HCC V24, CMS/HCC V28) Aneurysm of ascending aorta without rupture (CMS/HCC V24) COMPREHENSIVE METABOLIC PANEL Routine 01/26/2025 10:04 AM EST Need for vaccination against Streptococcus pneumoniae Stenosis of carotid artery, unspecified laterality Coronary artery disease due to lipid rich plaque Eosinophilic esophagitis Primary hypertension Hypercholesterolemia ILD (interstitial lung disease) (CMS/HCC V24, CMS/HCC V28) Aneurysm of ascending aorta without rupture (CMS/HCC V24) CBC AND DIFFERENTIAL Routine 01/26/2025 10:04 AM EST Need for vaccination against Streptococcus pneumoniae Stenosis of carotid artery, unspecified laterality Coronary artery disease due to lipid rich plaque Eosinophilic esophagitis Primary hypertension Hypercholesterolemia ILD (interstitial lung disease) (CMS/HCC V24, CMS/HCC V28) Aneurysm of ascending aorta without rupture (CMS/HCC V24) HEMOGLOBIN A1C Routine 01/26/2025 10:04 AM EST Need for vaccination against Streptococcus pneumoniae Stenosis of carotid artery, unspecified laterality Coronary artery disease due to lipid rich plaque Eosinophilic esophagitis Primary hypertension Hypercholesterolemia ILD (interstitial lung disease) (CMS/HCC V24, CMS/HCC V28) Aneurysm of ascending aorta without rupture (CMS/HCC V24) VITAMIN B12 Routine 01/26/2025 10:04 AM EST Need for vaccination against Streptococcus pneumoniae Stenosis of carotid artery, unspecified laterality Coronary artery disease due to lipid rich plaque Eosinophilic esophagitis Primary hypertension Hypercholesterolemia ILD (interstitial lung disease) (CMS/HCC V24, CMS/HCC V28) Aneurysm of ascending aorta without rupture (CMS/HCC V24) FOLATE Routine 01/26/2025 10:04 AM EST Need for vaccination against Streptococcus pneumoniae Stenosis of carotid artery, unspecified laterality Coronary artery disease due to lipid rich plaque Eosinophilic esophagitis Primary hypertension Hypercholesterolemia ILD (interstitial lung disease) (CMS/HCC V24, CMS/HCC V28) Aneurysm of ascending aorta without rupture (CMS/HCC V24) GAMMA GLUTAMYL TRANSFERASE Routine 01/26/2025 10:04 AM EST Need for vaccination against Streptococcus pneumoniae Stenosis of carotid artery, unspecified laterality Coronary artery disease due to lipid rich plaque Eosinophilic esophagitis Primary hypertension Hypercholesterolemia ILD (interstitial lung disease) (CMS/HCC V24, CMS/HCC V28) Aneurysm of ascending aorta without rupture (CMS/HCC V24) EXTERNAL CLINICAL LAB 12/11/2024 CARDIAC HOLTER MONITOR (REPORT GENERATED IN HOUSE) Routine 11/12/2024 9:38 AM EDT Palpitations HEPATITIS C ANTIBODY Routine 04/30/2024 8:11 AM EDT Aneurysm of ascending aorta without rupture (CMS/HCC V24) Ankylosing spondylitis, unspecified site of spine (CMS/HCC V24, CMS/HCC V28) Stenosis of carotid artery, unspecified laterality Eosinophilic esophagitis Coronary artery disease due to lipid rich plaque Primary hypertension ILD (interstitial lung disease) (CMS/HCC V24, CMS/HCC V28) Hypercholesterolemia Neurogenic thoracic outlet syndrome Neurostimulator device in situ COLONOSCOPY Routine 05/26/2020 from Last 3 Months or Most Recently Relevant to Health Maintenance Results * Lipid panel with reflex to direct LDL (01/26/2025 10:04 AM EST) Cholesterol 184 0 - 200 mg/dL 01/26/2025 12:24 PM [facility] Triglycerides 61 0 - 150 mg/dL 01/26/2025 12:24 PM [facility] HDL 78 >=40 mg/dL 01/26/2025 12:24 PM [facility] LDL Calculated 94 0 - 100 mg/dL 01/26/2025 12:24 PM [facility] Comment:Estimated LDL is juan culated using the Friedewald equation: Total cholesterol - HDL cholesterol - (Triglycerides/5) VLDL Cholesterol Juan 12.2 mg/dL 01/26/2025 12:24 PM [facility] Non HDL Chol. (LDL+VLDL) 106 <145 mg/dL 01/26/2025 12:24 PM [facility] Chol/HDL Ratio 2.4 0.0 - 4.4 01/26/2025 12:24 PM [facility] Blood Venous blood specimen / Unknown Venipuncture / Unknown 01/26/2025 10:04 AM EST 01/26/2025 10:04 AM EST us Mike OLSEN LAB BLOOD ORDERABLES Erma kevin Result [facility] [address] [place] [address], * (ABNORMAL) CBC auto differential (01/26/2025 10:04 AM EST) Pathologist [facility] WBC 8.3 4.8 - 10.8 K/mcL LAB HEMETOLOGY METHOD 01/26/2025 1:07 PM [facility] RBC 5.00 4.50 - 5.50 M/mcL LAB HEMETOLOGY METHOD 01/26/2025 1:07 PM [facility] Hemoglobin 14.4 13.5 - 17.5 g/dL LAB HEMETOLOGY METHOD 01/26/2025 1:07 PM [facility] Hematocrit 46.4 42.0 - 54.0 % LAB HEMETOLOGY METHOD 01/26/2025 1:07 PM [facility] MCV 92.8 79.0 - 98.0 FL LAB HEMETOLOGY METHOD 01/26/2025 1:07 PM [facility] MCH 28.8 27.0 - 32.0 pcg LAB HEMETOLOGY METHOD 01/26/2025 1:07 PM [facility] MCHC 31.0(L) 32.0 - 37.0 g/dL LAB HEMETOLOGY METHOD 01/26/2025 1:07 PM [facility] RDW 14.6 11.0 - 15.0 % LAB HEMETOLOGY METHOD 01/26/2025 1:07 PM [facility] Platelets 210 130 - 400 K/mcL LAB HEMETOLOGY METHOD 01/26/2025 1:07 PM [facility] MPV 9.5 7.0 - 11.0 FL LAB HEMETOLOGY METHOD 01/26/2025 1:07 PM [facility] NRBC 0.0 <1.0 % LAB HEMETOLOGY METHOD 01/26/2025 1:07 PM [facility] NRBC Absolute 0.00 <0.10 K/mcL LAB HEMETOLOGY METHOD 01/26/2025 1:07 PM [facility] Neutrophils Relative 85.1 % LAB HEMETOLOGY METHOD 01/26/2025 1:07 PM [facility] Lymphocytes Relative 7.3 % LAB HEMETOLOGY METHOD 01/26/2025 1:07 PM [facility] Monocytes Relative 4.3 % LAB HEMETOLOGY METHOD 01/26/2025 1:07 PM [facility] Eosinophils Relative 0.1 % LAB HEMETOLOGY METHOD 01/26/2025 1:07 PM [facility] Basophils Relative 1.0 % LAB HEMETOLOGY METHOD 01/26/2025 1:07 PM [facility] Immature Granulocytes Relative 2.2 % LAB HEMETOLOGY METHOD 01/26/2025 1:07 PM [facility] Neutrophils Absolute 7.07(H) 1.50 - 7.00 K/mcL LAB HEMETOLOGY METHOD 01/26/2025 1:07 PM [facility] Lymphocytes Absolute 0.61(L) 1.00 - 5.00 K/mcL LAB HEMETOLOGY METHOD 01/26/2025 1:07 PM [facility] Monocytes Absolute 0.36 0.20 - 1.00 K/mcL LAB HEMETOLOGY METHOD 01/26/2025 1:07 PM [facility] Eosinophils Absolute 0.01 0.00 - 0.50 K/mcL LAB HEMETOLOGY METHOD 01/26/2025 1:07 PM [facility] Basophils Absolute 0.08 0.00 - 0.20 K/mcL LAB HEMETOLOGY METHOD 01/26/2025 1:07 PM [facility] Immature Granulocytes Absolute 0.18(H) 0.00 - 0.03 K/mcL LAB HEMETOLOGY METHOD 01/26/2025 1:07 PM [facility] Blood Venous blood specimen / Unknown Venipuncture / Unknown 01/26/2025 10:04 AM EST 01/26/2025 10:04 AM EST Mike OLSEN LAB BLOOD ORDERABLES Erma l Result Performing Organization Address City/[facility]/ZIP Co de Phone Number [facility] [address] [place] [address], [place] [phone] * Hemoglobin A1c (01/26/2025 10:04 AM EST) Pathologist [facility] Hemoglobin A1C 6.2 <6.5 % LAB CHEMISTRY METHOD 01/26/2025 2:30 PM EST [facility] Mean Bld Glu Estim. 131 mg/dL LAB CHEMISTRY METHOD 01/26/2025 2:30 PM EST [facility] Blood Venous blood specimen / Unknown Venipuncture / Unknown 01/26/2025 10:04 AM EST 01/26/2025 10:04 AM EST Mike Watson [facility] LAB BLOOD ORDERABLES Erma l Result Performing Organization Address [facility]/ZIP Co de Phone Number [facility] [address] [place] [address], [place] [phone] * (ABNORMAL) GGT (01/26/2025 10:04 AM EST) [facility] GGT 75(H) <73 unit/L 01/26/2025 12:24 PM EST [facility] Blood Venous blood specimen / Unknown Venipuncture / Unknown 01/26/2025 10:04 AM EST 01/26/2025 10:04 AM EST Mike Watson [facility] LAB BLOOD ORDERABLES Erma l Result Performing Organization Address City/[facility]/ZIP Co de Phone Number [facility] [address] [place] [address], [place] [phone] * Folate (01/26/2025 10:04 AM EST) Folate 18.8 >=5.4 ng/ml 01/26/2025 12:19 PM EST [facility] Blood Venous blood specimen / Unknown Venipuncture / Unknown 01/26/2025 10:04 AM EST 01/26/2025 10:04 AM EST Narrative [facility] - 01/26/2025 12:19 PM EST Over the counter supplements containing high doses of biotin may interfere with this assay. If interference is suspected, patients shoud be retested after refraining from biotin supplements for 72 hours. Mike OLSEN LAB BLOOD ORDERABLES Erma l Result [facility] [address] [place] [address], [place] [phone] * Vitamin B12 (01/26/2025 10:04 AM EST) Vitamin B-12 427 211 - 911 pcg/mL 01/26/2025 12:19 PM EST [facility] Blood Venous blood specimen / Unknown Venipuncture / Unknown 01/26/2025 10:04 AM EST 01/26/2025 10:04 AM EST Mike OLSEN LAB BLOOD ORDERABLES Erma l Result [facility] [address] [place] [address], [place] [phone] * (ABNORMAL) Comprehensive metabolic panel (01/26/2025 10:04 AM EST) Sodium 140 133 - 145 mmol/L 01/26/2025 12:24 PM EST [facility] Potassium 4.3 3.5 - 5.5 mmol/L 01/26/2025 12:24 PM [facility] Chloride 103 96 - 110 mmol/L 01/26/2025 12:24 PM [facility] CO2 28 21 - 32 mmol/L 01/26/2025 12:24 PM [facility] Anion Gap 9 3 - 11 01/26/2025 12:24 PM [facility] Glucose 120(H) 70 - 100 mg/dL 01/26/2025 12:24 PM [facility] BUN 21 5 - 25 mg/dL 01/26/2025 12:24 PM [facility] Creatinine 0.98 0.70 - 1.30 mg/dL 01/26/2025 12:24 PM [facility] eGFR 86 >=60 mL/min/1. 73m2 01/26/2025 12:24 PM [facility] Comment:Calculation based on the Chronic Kidney Disease Epidemiology Collaboration (CKD-EPI) equation refit without adjustment for race. BUN/Creatinine Ratio 21.4 01/26/2025 12:24 PM [facility] Calcium 9.1 8.5 - 10.5 mg/dL 01/26/2025 12:24 PM [facility] AST (SGOT) 48(H) 10 - 42 unit/L 01/26/2025 12:24 PM [facility] ALT (SGPT) 56 10 - 60 unit/L 01/26/2025 12:24 PM [facility] Alkaline Phosphatase 48 42 - 121 unit/L 01/26/2025 12:24 PM [facility] Total Protein 6.3 6.0 - 8.0 g/dL 01/26/2025 12:24 PM [facility] Albumin 4.3 3.2 - 5.0 g/dL 01/26/2025 12:24 PM [facility] Total Bilirubin 0.4 0.0 - 1.4 mg/dL 01/26/2025 12:24 PM [facility] Blood Venous blood specimen / Unknown Venipuncture / Unknown 01/26/2025 10:04 AM EST 01/26/2025 10:04 AM EST Mike OLSEN LAB BLOOD ORDERABLES Erma l Result [facility] [address] [place] [address], * External clinical lab (12/11/2024) Provider [facility] BLOOD ORDERABLES Fin al Result * CARDIAC HOLTER MONITOR (REPORT GENERATED IN HOUSE) (11/12/2024 9:38 AM EDT) Anatomical Region Laterality Modality Cardiac Diagnost ic Narrative 12/07/2024 8:04 PM EDT [facility] DEPARTMENT [address] [place] [id number] TEL: FAX: Type of Test: 48 Hour Holter Monitor Date of Test: 11/12/2024 Ordering Provider: Ida Caldwell NP Reason for Test: Palpitations Findings: 1: The predominant rhythm is sinus bradycardia. 2: Heart rate range was 40-112 bpm with an average of 58 bpm. Total time in Sinus Bradycardia: 34 hrs 17 mins. 3: Occasional PACs. Rare aberrant beats, atrial pairs, atrial trigeminy, and two atrial runs lasting up to 5 beats with rates up to 154 bpm. 4: Rare PVCs. 5: No significant pause noted, longest R-R was 1.7 seconds at 3:42 AM. No sustained arrhythmias. 6: Diary returned with no symptoms noted. Ida Caldwell NP [facility] PROCEDURES Final Result * Hepatitis C antibody (04/30/2024 8:11 AM EDT) Hepatitis C Antibody Negative Negative LAB CHEMISTRY METHOD 04/30/2024 11:48 AM EDT [facility] Blood Venous blood specimen / Unknown Venipuncture / Unknown 04/30/2024 8:11 AM EDT 04/30/2024 8:11 AM EDT Mike OLSEN LAB BLOOD ORDERABLES Erma brown Result [facility] [address] [place] [address], * Colonoscopy (05/26/2020) Colonoscopy No interpreta tion,abstr acted Anatomical Region Laterality Modality Other Historical Provider MD HEALTH MAINTENANCE Final Result from Last 3 Months or Most Recently Relevant to Health Maintenance Insurance [facility] Care Teams Card Room Manager Relationship Specialty Start Date End Date Mike Watson PA [address] [place] [address] PCP - General Internal Medicine 01/31/24
--- OUTSIDE RECORDS SUMMARY | 2025-02-09 16:44 | XMS_ITS | Clinical Summary ---
Author Organization [facility] Address [address] [place] [address] Care Team Providers Care Stucco Laborer Name Role Phone Mike Watson Primary Care Provider [phone] Allergies Active Allergy Reactions Criticality Noted Date [...] mg tablet Take 20 mg by mouth. 1 Active cetirizine (ZyrTEC) 10 mg tablet 2 Active fluticasone propionate (FLONASE) 50 mcg/actuation nasal spray 1 spray. Active gabapentin (NEURONTIN) 800 mg tablet 2 Active omeprazole (PriLOSEC) 20 mg capsule TAKE ONE CAPSULE BY MOUTH EVERY DAY WHILE ON NAPROXEN TO PROTECT YOUR STOMACH 2 Active diphenhydrAMINE (BENADRYL) 25 mg capsule Take 75 mg by mouth every night. Active PREDNISONE, BULK, MISC 10 mg. Active aspirin chewable tablet 81 mg Chew and swallow 81 mg by mouth once a day. Active pregabalin (Lyrica) 100 mg capsule Take 100 mg by mouth every 12 hours. Active sulfamethoxazole -trimethoprim (BACTRIM SS) 400-80 mg tablet Take 1 tablet by mouth 2 times a day. Active dilTIAZem (CARDIZEM) 120 mg tablet Take 120 mg by mouth once a day. Active isosorbide mononitrate ER (IMDUR) 60 mg tablet Take 60 mg by mouth once a day. Active golimumab (SIMPONI ARIA INTRAVENOU) Infuse intravenously . Active metoprolol succinate XL (TOPROL XL) 50 mg tablet Take 50 mg by mouth once a day. Active inhalational spacing device Use as directed. 1 each 1 5 Active mometasone 100 mcg/actuation HFA aerosol inhaler Inhale 2 puffs (200 mcg total) by mouth 2 times a day. 13 g 1 5 Active Active Problems Problem Noted Date [...] (09/17/2024): Upper GI endoscopy and biopsy 11/11/2012. Social History Tobacco Use Types Packs/Day Years [...] years old and patients) (1 - Risk 50-74 years 1-dose series) 2010 Pneumococcal Vaccine: 50+ Years (2 of 2 - PCV) 12/02/2022 12/02/2021 Alcohol/Substance Use Screening 02/13/2024 Depression Screening and Follow-Up 02/13/2024 [employer] Annual Screening 02/13/2024 Influenza Vaccine (#1) 2024 , 12/02/2021, 10/21/2019, Additional history exists COVID-19 Vaccine ( season) 2024 10/24/2023, 06/15/2022, 11/20/2021, Additional history exists Basic Metabolic Panel 04/30/2025 04/30/2024 , 04/10/2024, 04/12/2021 Colon Cancer Screening 04/30/2025 FOBT / Fit Test 04/30/2025 04/30/2024 DTaP,Tdap,and Td Vaccines (3 - Td or Tdap) 12/03/2031 12/02/2021, 03/05/2009 Hepatitis C Screening Completed 04/07/2021 Zoster Vaccines Completed 07/19/2021, 05/13/2021 Hepatitis B Vaccines Aged Out No long er eligible based on patient's age to complete this topic Insurance [facility] Care Teams Stucco Laborer Relationship Specialty Start Date End Date Mike Watson [address] [place] [address] PCP - General Internal Medicine 06/13/24
== END 2025-02-09 14:52 | disposition home or self-care (01) ==
LOC: HO.HPS 14:24
PROVIDERS: PCP Physician Assistant Medical; Visit Provider Internal Medicine Pulmonary Disease
DX: J84.9 Interstitial pulmonary disease, unspecified (principal); M45.9 Ankylosing spondylitis of unspecified sites in spine
CPT/HCPCS: 99214